=== PATIENT | male | born 1955 | race Caucasian/White ===

== ENCOUNTER 2018-05-23 13:03 | Emergency (ER) | payer OTHER, SELFPAY ==
[2018-05-23 13:53] VITALS: BP 138/72; PULSE 70; RESP 16; TEMP 37.1; O2SAT 100; BMI 33.9
[2018-05-23 15:49] VITALS: BP 130/81; PULSE 66; RESP 15; O2SAT 100
[2018-05-23] MEDS: CYCLOBENZAPRINE 10 MG TABLET PO (16:24)
[2018-05-23] MEDS: HYDROMORPHONE 2 MG INJ IM (16:24)
--- NOTE | 2018-05-27 13:18 | ED.BACK ---
HPI - Back Pain/Injury General Chief Complaint: Back Pain/Injury Stated Complaint: INJURED BACK AT WORK Time Seen by Provider: 05/23/18 15:16 Source: patient Mode of arrival: ambulatory Limitations: no limitations History of Present Illness HPI Narrative: patient states that he strained his back while doing some heavy lifting at work. He states he has been able to control his bowels and bladder, and has had no weakness or numbness in his lower extremities, but does state that the persistent back pain has been keeping him awake at night. He states he does not have any pain medication at home. Patient also is in need of L and I paperwork filled out. He states his pain is about a 7 of 10 at the worst, but sometimes calms down to a 4/10. Bending or lifting makes it worse; laying down in certain positions makes it better. Related Data Home Medications Medication Instructions Recorded Confirmed cyclobenzaprine 10 mg PO Q8H #0 11/14/15 Previous Rx's Medication Instructions Recorded hydromorphone 0 mg PO Q4HP PRN #60 11/18/15 hydroxyzine pamoate 0 mg PO Q4HP PRN #60 cap 11/18/15 cyclobenzaprine 10 mg PO TID PRN #14 tab 05/23/18 hydrocodone-acetaminophen 1 tab PO Q4H PRN #20 tab 05/23/18 Allergies Allergy/AdvReac Type Severity Reaction Status Date / Time NSAIDS (Non-Steroidal AdvReac Mild CAN TAKE, Verified 05/23/18 14:02 Anti-Inflamma BUT TRIES [NSAIDS (NON-STEROIDAL TO AVOID ANTI-INFLAMMA] R/T GASTRIC BYPASS Review of Systems Constitutional Denies chills, Denies fever(s), Denies lethargy and Denies weakness Eyes Denies change in vision, Denies eye discharge, Denies irritation and Denies loss of vision ENT Ears, Nose, Mouth, and Throat: Denies change in voice, Denies neck pain and Denies sore throat Cardiovascular Denies chest pain, Denies irregular heart rhythm, Denies lightheadedness, Denies palpitations, Denies dyspnea, Denies dyspnea on exertion and Denies orthopnea Respiratory Denies cough, Denies dyspnea, Denies dyspnea on exertion and Denies wheezing Gastrointestinal Gastrointestinal: Denies abdominal pain, Denies change in bowel habits, Denies diarrhea, Denies nausea and Denies vomiting Genitourinary Denies hematuria, Denies flank pain, Denies urinary incontinence and Denies urinary urgency Musculoskeletal Denies neck pain Comments: Back pain Integumentary/Breasts Denies pruritus, Denies erythema, Denies rash and Denies wounds Neurologic Denies confusion, Denies loss of vision and Denies weakness Psychiatric Denies anxiety, Denies confusion, Denies depression, Denies homicidal ideation and Denies suicidal ideation Endocrine Denies palpitations Hematologic/Lymphatic Denies easy bruising Allergic/Immunologic Denies wheezing FORMERLY [facility], [facility] Medical History Healthy adult (Acute) Surgical History No pertinent past surgical history (Acute) Social History Smoking Status: Current every day smoker Social History Smoking Status: Current every day smoker Exam Initial Vital Signs Initial Vital Signs: Vital Signs Temperature 98.8 F 05/23/18 13:53 Pulse Rate 70 05/23/18 13:53 Respiratory Rate 16 05/23/18 13:53 Blood Pressure 138/72 05/23/18 13:53 Pulse Oximetry 100 05/23/18 13:53 Const General: cooperative and well developed Nutritional Appearance: well nourished Orientation: alert, awake, oriented x3 and not confused HENNJ Head: normocephalic and atraumatic Ears: external ears normal and TM's normal bilaterally Nose: external nose normal and No nasal discharge Face and sinus: sinuses nontender, face symmetric, no sinus tenderness and No dry mucous membranes Mouth: oral mucosae normal and moist mucous membranes Teeth and gingiva: dentition normal Throat: tonsils normal and uvula midline Eyes General: appearance normal, both eyes and all related structures Eyelids: eyelids normal Conjunctivae: conjunctivae normal Sclera: sclerae normal Pupils: PERRL EOM: EOM intact bilaterally Neck Neck: normal visual inspection, trachea midline, No lymphadenopathy, No midline deformity and No JVD Lymphatic: No lymphedema Chest Chest: normal inspection of the chest Resp Effort & Inspection: normal respiratory effort, able to speak in complete sentences, no respiratory distress and no use of accessory muscles Auscultation: clear to auscultation bilaterally, no rales, no rhonchi and no wheezes Cardio Rate: regular rate Rhythm: regular rhythm Heart Sounds: no click, no gallops, no murmurs and no rubs Pulses: normal peripheral pulses GI Inspection: non-distended Palpation: soft, no hepatosplenomegaly, No guarding, No pulsatile mass and No tender Auscultation: normal bowel sounds Back/Spine/Pelvis Back: No CVA tenderness Cervical Spine: cervical ROM normal and No pain with cervical ROM Other: patient has no tenderness or step-off at any level of the spine. He does have tenderness of his bilateral lumbar paraspinal muscles, right worse than left. He has somewhat limited range of motion of his lumbar region, as well , due to pain and stiffness. Skin General: no rashes or lesions noted, No jaundice and No petechiae Neuro General: alert, oriented x3, gait normal and no focal motor deficits Speech: speech normal Extrem General: full ROM, no clubbing, cyanosis or edema, no pedal edema and no calf tenderness Psych Appearance: well kempt Mental Status: mental status grossly normal Attitude: cooperative Thought Content: normal and suicidality Judgment: judgment good Course Course Narrative: Patient was treated symptomatically with Dilaudid and Flexeril in the emergency department. His significant other was here with him. I did discuss with him the potential need for an MRI as an outpatient. In the meantime, he will be treated symptomatically at home, and given light duty at work until cleared by his doctor. We have discussed the usual indications for return, as well as symptomatic management at home. Orders Ordered: Discontinued Medications Cyclobenzaprine HCl (Flexeril) 10 mg PO NOW ONE Stop: 05/23/18 16:18 Last Admin: 05/23/18 16:24 Dose: 10 mg Hydromorphone HCl (Dilaudid) 2 mg IM NOW ONE Stop: 05/23/18 16:19 Last Admin: 05/23/18 16:24 Dose: 2 mg MDM - Back Pain/Injury Medical Records Attestation: I reviewed the patient's medical records. Discharge Plan Departure Patient Disposition: Home Clinical Impression: Strain of lumbar region Qualifiers: Encounter type: initial encounter Qualified Code(s): S39.012A - Strain of muscle, fascia and tendon of lower back, initial encounter Discharge Date/Time: 05/23/18 17:57 Interventions: ED Discharge Assessment Last Done: 05/23/18 17:54 Instructions: DI for Back Strain or Sprain Activity Restrictions/Additional Instructions: Most injuries of this sort to the back will blow over on their own, given time and rest. It usually takes a few weeks to notice a significant difference. Should the symptoms fail to resolve, the most helpful test would be an MRI, which can be ordered by your primary care physician. Please call your primary doctor's office 1st thing tomorrow morning to make an appointment for 1-2 weeks from now, should you notice the pain is not resolving. In the meantime, you may take the medications for your symptoms, as well as perform light duties only, without lifting, at work. Prescriptions: New cyclobenzaprine 10 mg tablet 10 mg PO TID PRN (Reason: muscle spasm) Qty: 14 RF: 0 hydrocodone-acetaminophen 5-325 mg tablet 1 tab PO Q4H PRN (Reason: pain) Qty: 20 RF: 0 No Action cyclobenzaprine 10 MG tablet 10 mg PO Q8H Qty: 0 RF: 0 hydromorphone 2 MG tablet PO Q4HP PRNQty: 60 RF: 0 hydroxyzine pamoate 25 MG capsule PO Q4HP PRNQty: 60 RF: 0
== END 2018-05-23 17:57 | disposition home or self-care (01) ==
PROVIDERS: Emergency Provider Emergency Medicine
DX: S39.012A Strain of muscle, fascia and tendon of lower back, initial encounter (principal); X50.0XXA Overexertion from strenuous movement or load, initial encounter; Y99.0 Civilian activity done for income or pay
CPT/HCPCS: 96372; 99282; 99283; J1170

== ENCOUNTER 2018-09-10 12:21 | Observation (INO) | payer OTHER, SELFPAY ==
[2018-09-10] VITALS (7 sets, daily range): BP systolic 112–136; BP diastolic 64–91; PULSE 68–93; RESP 14–18; TEMP 36.9–37.1; O2SAT 94–100; BMI 36.0
--- NOTE | 2018-09-10 12:36 | ED.FALL ---
HPI - Fall <Nanette Roberts PA-C - Last Filed: 09/10/18 17:16> General Chief Complaint: Trauma Stated Complaint: fall from a tree,lower back pain Time Seen by Provider: 09/10/18 12:35 Source: patient Mode of arrival: ambulatory Limitations: no limitations History of Present Illness HPI Narrative: This 63-year-old male states that he was working on removing a rotted tree about 6 ft up on the ladder when he fell backwards off the ladder directly onto his bottom. He states he has low back pain that shoots all the way up into his neck. He does not think he actually hit his neck, denies any head contusion, LOC, vision change, nausea or vomiting. He states that the pain can also radiate from his neck area into his left arm and shoulder. He denies any weakness or paresthesia in the extremities. He denies any pain in the lower extremities. He denies any chest pain or dyspnea. He states he does have some pain in the right thumb area but thinks that this is just strained. He has a history of C-spine and L-spine surgery, does not take any regular pain medication for back problems. His witnessed the fall and the same account, no LOC. He has not had any alcohol today, states 1/2 can of beer last night. He is a smoker, no drug use Related Data Home Medications Medication Instructions Recorded Confirmed Vitamin B-12 1 tab PO DAILY 09/10/18 09/10/18 amlodipine 10 mg PO DAILY 09/10/18 09/10/18 aspirin 81 mg PO DAILY 09/10/18 09/10/18 diphenhydramine-acetaminophen 2 tab PO BEDTIME PRN 09/10/18 09/10/18 [Tylenol PM Extra Strength] metformin 500 mg PO BID 09/10/18 09/10/18 multivitamin 1 tab PO DAILY 09/10/18 09/10/18 omeprazole 20 mg PO DAILY 09/10/18 09/10/18 simvastatin 20 mg PO DAILY 09/10/18 09/10/18 tamsulosin 0.4 mg PO DAILY 09/10/18 09/10/18 telmisartan-hydrochlorothiazid 1 tab PO DAILY 09/10/18 09/10/18 [Micardis HCT] Allergies Allergy/AdvReac Type Severity Reaction Status Date / Time NSAIDS (Non-Steroidal AdvReac Mild CAN TAKE, Verified 09/10/18 12:54 Anti-Inflamma BUT TRIES [NSAIDS (NON-STEROIDAL TO AVOID ANTI-INFLAMMA] R/T GASTRIC BYPASS Review of Systems <KARLA Kam Last Filed: 09/10/18 17:16> Review of Systems ROS Unobtainable: All systems reviewed & are unremarkable except as noted in HPI and below Exam <KARLA Kam Last Filed: 09/10/18 17:16> Narrative Exam Narrative: GENERAL APPEARANCE: Patient uncomfortable, in NAD HEENT: No scalp abrasions or hematoma, PERRL, EOMI, normal ear canals, nasal and oral mucosa NECK: Supple LUNGS: Clear to auscultation bilaterally. HEART: Rate and rhythm regular without murmur, normal S1 and S2, no S3 or S4. ABDOMEN: Soft, NT, ND NEUROLOGIC: Alert and oriented, normal speech and coordination. Sensation grossly intact throughout the extremities MUSCULOSKELETAL: Mild tenderness over mid to inferior C-spine, inferior thoracic spine and throughout the lumbosacral spine. Able to transfer from chair to bed initially, following imaging studies unable to sit up after initial pain medications. Full range of motion of the upper extremities without tenderness. No point tenderness over the shoulders or upper arms. [employer] strength is intact. No tenderness over the hips or legs. Lower extremity strength 5/5 bilateral hip flexion, knee extension, foot plantar flexion, low back tenderness with hip flexion, negative modified straight leg raise Initial Vital Signs Initial Vital Signs: Vital Signs Temperature 98.8 F 09/10/18 12:25 Pulse Rate 93 H 09/10/18 12:25 Respiratory Rate 18 09/10/18 12:25 Blood Pressure 136/91 H 09/10/18 12:25 Pulse Oximetry 99 09/10/18 12:25 <Sofia Vences DO - Last Filed: 09/11/18 07:51> Initial Vital Signs Initial Vital Signs: Vital Signs Temperature 98.8 F 09/10/18 12:25 Pulse Rate 93 H 09/10/18 12:25 Respiratory Rate 18 09/10/18 12:25 Blood Pressure 136/91 H 09/10/18 12:25 Pulse Oximetry 99 09/10/18 12:25 PFSH <KARLA Kam Last Filed: 09/10/18 17:16> Medical History Degenerative disc disease (Chronic) HTN (hypertension) (Chronic) Hypertriglyceridemia (Chronic) 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) History of bleeding ulcers (Resolved) Nephrolithiasis (Resolved) Surgical History History of cervical spinal surgery (Resolved) Status post lumbar surgery (Resolved) History of cholecystectomy (Resolved) History of gastric bypass (Resolved) Social History household members: spouse Smoking Status: Current every day smoker Family History (Updated 09/11/18 @ 05:49 by JANEEN Berrios) Mother No known health problems Father No known health problems Social History household members: spouse Smoking Status: Current every day smoker Course <Nanette Roberts PA-C - Last Filed: 09/10/18 17:16> Additional Information: Patient's pain has not been controlled with medications given here, still not able to set up or ambulate. No evidence of acute neurologic dysfunction, no paresthesia or inability to urinate. Dr. Steele, on-call for trauma has been kind enough to evaluate patient in the ED and agrees appropriate for admission for pain control. I have spoken with Dr. De Anda on-call for Medicine and reviewed history and findings, she will admit for observation with plan for pain control and physical therapy consult. CPK added to lab work. Orders Ordered: ED Orders 09/11/18 00:11 Consult to General Surgery Routine 09/11/18 06:20 Basic Metabolic Panel Routine Complete Blood Count AUTO DIFF Routine Acetaminophen (Tylenol) 975 mg PO Q8H DEANNE Stop: 09/13/18 20:59 Last Admin: 09/11/18 05:30 Dose: 975 mg Admin: 09/10/18 21:58 Dose: 975 mg Amlodipine Besylate (Norvasc) 10 mg PO DAILY [facility] Aspirin (Aspirin Ec) 81 mg PO DAILY [facility] Cyclobenzaprine HCl (Flexeril) 5 mg PO Q8HR PRN PRN Reason: Spasms Last Admin: 09/10/18 23:42 Dose: 5 mg Docusate Sodium (Colace) 100 mg PO BID [facility] Last Admin: 09/10/18 21:59 Dose: 100 mg Fentanyl (Duragesic) 50 mcg TOP Q72H [facility] Last Admin: 09/10/18 21:59 Dose: 50 mcg Gabapentin (Neurontin) 300 mg PO TID [facility] Last Admin: 09/10/18 21:58 Dose: 300 mg Sodium Chloride (Normal Saline 0.9%) 1,000 mls @ 100 mls/hr IV CONT [facility] Last Admin: 09/10/18 22:47 Dose: 100 mls/hr Lidocaine (Lidoderm) 1 each TOP 2100 [facility] Last Admin: 09/10/18 21:59 Dose: 1 each Lidocaine (Lidoderm (Remove Patch)) 1 each TOP DAILY [facility] Morphine Sulfate (Morphine) 4 mg IV Q3HR PRN PRN Reason: Breakthrough Pain Last Admin: 09/11/18 03:58 Dose: 4 mg Admin: 09/10/18 23:59 Dose: 4 mg Naloxone HCl (Narcan) 0.4 mg NASAL PRN PRN PRN Reason: respiratory depression Naloxone HCl (Narcan) 0.2 mg IV Q2MIN PRN PRN Reason: Opiate Reversal Ondansetron HCl (Zofran) 4 mg IV Q6HR PRN PRN Reason: Nausea And Vomiting Last Admin: 09/10/18 23:42 Dose: 4 mg Pantoprazole Sodium (Protonix) 40 mg PO 0600 [facility] Last Admin: 09/11/18 05:30 Dose: 40 mg Polyethylene Glycol (Miralax) 17 gm PO DAILY PRN PRN Reason: Constipation Sennosides (Senna) 17.2 mg PO BEDTIME [facility] Last Admin: 09/10/18 23:37 Dose: Not Given Simvastatin (Zocor) 20 mg PO DAILY [facility] Sodium Chloride (Normal Saline 0.9% Flush) 10 ml IV PRN PRN PRN Reason: Flush Last Admin: 09/10/18 22:48 Dose: 10 ml Admin: 09/10/18 21:05 Dose: 10 ml Tamsulosin HCl (Flomax) 0.4 mg PO DAILY [facility] Telmisartan (Micardis) 80 mg PO DAILY [facility] Tramadol HCl (Ultram) 50 mg PO QID PRN PRN Reason: Pain, Severe (7-10) Discontinued Medications Cyclobenzaprine HCl (Flexeril) 10 mg PO NOW ONE Stop: 09/10/18 13:50 Last Admin: 09/10/18 14:26 Dose: 10 mg Fentanyl (Duragesic) 50 mcg TOP Q72H [facility] Hydromorphone HCl (Dilaudid) 0.5 mg IV NOW ONE Stop: 09/10/18 15:02 Last Admin: 09/10/18 15:10 Dose: 0.5 mg Hydromorphone HCl (Dilaudid) 0.5 mg IV NOW ONE Stop: 09/10/18 15:52 Last Admin: 09/10/18 16:17 Dose: 0.5 mg Ketorolac Tromethamine (Toradol) 30 mg IV NOW ONE Stop: 09/10/18 16:07 Last Admin: 09/10/18 16:18 Dose: 30 mg Lidocaine (Lidoderm) 1 each TOP DAILY [facility] Morphine Sulfate (Morphine) 4 mg SUBCUT NOW ONE Stop: 09/10/18 12:46 Last Admin: 09/10/18 13:00 Dose: Not Given Morphine Sulfate (Morphine) 4 mg IV NOW ONE Stop: 09/10/18 12:51 Last Admin: 09/10/18 12:54 Dose: 4 mg Morphine Sulfate (Morphine) 4 mg IV NOW ONE Stop: 09/10/18 13:33 Last Admin: 09/10/18 13:39 Dose: 4 mg Morphine Sulfate (Morphine) 2 mg IV Q3HR PRN PRN Reason: Breakthrough Pain Morphine Sulfate (Morphine) 6 mg IV NOW ONE Stop: 09/10/18 20:50 Last Admin: 09/10/18 21:05 Dose: 6 mg Oxycodone HCl (Percolone) 10 mg PO Q4HR PRN PRN Reason: Pain, Severe (7-10) Last Admin: 09/10/18 18:59 Dose: 10 mg Tramadol HCl (Ultram) 50 mg PO NOW ONE Stop: 09/11/18 00:05 Last Admin: 09/11/18 02:21 Dose: 50 mg Vital Signs - 8 hr 09/11/18 04:14 Temperature 98.7 F Pulse Rate 80 Respiratory Rate 16 Blood Pressure 110/41 L Pulse Oximetry 97 <Sofia Vences DO - Last Filed: 09/11/18 07:51> Orders Ordered: ED Orders 09/11/18 00:11 Consult to General Surgery Routine 09/11/18 06:20 Basic Metabolic Panel Routine Complete Blood Count AUTO DIFF Routine Acetaminophen (Tylenol) 975 mg PO Q8H [facility] Stop: 09/13/18 20:59 Last Admin: 09/11/18 05:30 Dose: 975 mg Admin: 09/10/18 21:58 Dose: 975 mg Amlodipine Besylate (Norvasc) 10 mg PO DAILY [facility] Aspirin (Aspirin Ec) 81 mg PO DAILY [facility] Cyclobenzaprine HCl (Flexeril) 5 mg PO Q8HR PRN PRN Reason: Spasms Last Admin: 09/10/18 23:42 Dose: 5 mg Docusate Sodium (Colace) 100 mg PO BID [facility] Last Admin: 09/10/18 21:59 Dose: 100 mg Fentanyl (Duragesic) 50 mcg TOP Q72H [facility] Last Admin: 09/10/18 21:59 Dose: 50 mcg Gabapentin (Neurontin) 300 mg PO TID [facility] Last Admin: 09/10/18 21:58 Dose: 300 mg Sodium Chloride (Normal Saline 0.9%) 1,000 mls @ 100 mls/hr IV CONT [facility] Last Admin: 09/10/18 22:47 Dose: 100 mls/hr Lidocaine (Lidoderm) 1 each TOP 2100 [facility] Last Admin: 09/10/18 21:59 Dose: 1 each Lidocaine (Lidoderm (Remove Patch)) 1 each TOP DAILY [facility] Morphine Sulfate (Morphine) 4 mg IV Q3HR PRN PRN Reason: Breakthrough Pain Last Admin: 09/11/18 03:58 Dose: 4 mg Admin: 09/10/18 23:59 Dose: 4 mg Naloxone HCl (Narcan) 0.4 mg NASAL PRN PRN PRN Reason: respiratory depression Naloxone HCl (Narcan) 0.2 mg IV Q2MIN PRN PRN Reason: Opiate Reversal Ondansetron HCl (Zofran) 4 mg IV Q6HR PRN PRN Reason: Nausea And Vomiting Last Admin: 09/10/18 23:42 Dose: 4 mg Pantoprazole Sodium (Protonix) 40 mg PO 0600 [facility] Last Admin: 09/11/18 05:30 Dose: 40 mg Polyethylene Glycol (Miralax) 17 gm PO DAILY PRN PRN Reason: Constipation Sennosides (Senna) 17.2 mg PO BEDTIME [facility] Last Admin: 09/10/18 23:37 Dose: Not Given Simvastatin (Zocor) 20 mg PO DAILY [facility] Sodium Chloride (Normal Saline 0.9% Flush) 10 ml IV PRN PRN PRN Reason: Flush Last Admin: 09/10/18 22:48 Dose: 10 ml Admin: 09/10/18 21:05 Dose: 10 ml Tamsulosin HCl (Flomax) 0.4 mg PO DAILY [facility] Telmisartan (Micardis) 80 mg PO DAILY [facility] Tramadol HCl (Ultram) 50 mg PO QID PRN PRN Reason: Pain, Severe (7-10) Discontinued Medications Cyclobenzaprine HCl (Flexeril) 10 mg PO NOW ONE Stop: 09/10/18 13:50 Last Admin: 09/10/18 14:26 Dose: 10 mg Fentanyl (Duragesic) 50 mcg TOP Q72H [facility] Hydromorphone HCl (Dilaudid) 0.5 mg IV NOW ONE Stop: 09/10/18 15:02 Last Admin: 09/10/18 15:10 Dose: 0.5 mg Hydromorphone HCl (Dilaudid) 0.5 mg IV NOW ONE Stop: 09/10/18 15:52 Last Admin: 09/10/18 16:17 Dose: 0.5 mg Ketorolac Tromethamine (Toradol) 30 mg IV NOW ONE Stop: 09/10/18 16:07 Last Admin: 09/10/18 16:18 Dose: 30 mg Lidocaine (Lidoderm) 1 each TOP DAILY [facility] Morphine Sulfate (Morphine) 4 mg SUBCUT NOW ONE Stop: 09/10/18 12:46 Last Admin: 09/10/18 13:00 Dose: Not Given Morphine Sulfate (Morphine) 4 mg IV NOW ONE Stop: 09/10/18 12:51 Last Admin: 09/10/18 12:54 Dose: 4 mg Morphine Sulfate (Morphine) 4 mg IV NOW ONE Stop: 09/10/18 13:33 Last Admin: 09/10/18 13:39 Dose: 4 mg Morphine Sulfate (Morphine) 2 mg IV Q3HR PRN PRN Reason: Breakthrough Pain Morphine Sulfate (Morphine) 6 mg IV NOW ONE Stop: 09/10/18 20:50 Last Admin: 09/10/18 21:05 Dose: 6 mg Oxycodone HCl (Percolone) 10 mg PO Q4HR PRN PRN Reason: Pain, Severe (7-10) Last Admin: 09/10/18 18:59 Dose: 10 mg Tramadol HCl (Ultram) 50 mg PO NOW ONE Stop: 09/11/18 00:05 Last Admin: 09/11/18 02:21 Dose: 50 mg Vital Signs - 8 hr 09/11/18 04:14 Temperature 98.7 F Pulse Rate 80 Respiratory Rate 16 Blood Pressure 110/41 L Pulse Oximetry 97 MDM - Fall <Nanette Roberts PA-C - Last Filed: 09/10/18 17:16> Lab Data Result diagrams: 09/10/18 12:59 09/10/18 12:59 Lab Results 09/10/18 09/10/18 09/10/18 Range/Units 12:59 12:59 12:59 WBC 7.8 (4.5-11.0) X10^3/uL RBC 3.96 L (4.5-5.9) X10^6/uL Hgb 11.2 L (13.5-17.5) g/dL Hct 34.5 L (41-53) % MCV 87.2 (80-100) fL MCH 28.2 (26-34) PG MCHC 32.3 (30-36) % RDW 15.8 H (11.6-14.8) % Plt Count 349 (150-400) X10^3/uL Neut % (Auto) 73.0 (50-75) % Lymph % (Auto) 18.4 L (25-40) % Emanuel % (Auto) 7.6 (3-14) % Eos % (Auto) 0.5 L (2-4) % Baso % (Auto) 0.5 (0-2) % Neut # (Auto) 5700 (7676-3804) /uL Lymph # (Auto) 1400 (4237-6805) /uL Emanuel # (Auto) 600 (0-900) /uL Eos # (Auto) 0 (0-450) /uL Baso # (Auto) 0 (0-100) /uL PT 11.2 (10.1-12.7) SECONDS INR 1.0 (0.9-1.3) Sodium 139 (137-145) mmol/L Potassium 4.7 (3.4-5.1) mmol/L Chloride 107 (98-107) mmol/L Carbon Dioxide 21 L (22-32) mmol/L BUN 25 H (9-20) mg/dL Creatinine 1.10 (0.66-1.25) mg/dL Estimated GFR > 60.0 (>60) mL/min BUN/Creatinine Ratio 22.7 H (6-22) Glucose 111 H (80-110) mg/dL Calcium 9.3 (8.4-10.2) mg/dL Total Bilirubin 0.6 (0.2-1.3) mg/dL AST 25 (17-59) IU/L ALT 17 L (21-72) IU/L Alkaline Phosphatase 133 H (38-126) U/L Total Creatine Kinase (55-170) U/L CK-MB (CK-2) CK-MB (CK-2) Rel Index Troponin I (0.01-0.034) ng/mL Total Protein 7.4 (6.3-8.2) g/dL Albumin 4.3 (3.5-5.0) g/dL Globulin 3.1 (1.7-4.1) g/dL Albumin/Globulin Ratio 1.4 (1.0-2.8) 09/10/18 09/10/18 Range/Units 12:59 22:38 WBC (4.5-11.0) X10^3/uL RBC (4.5-5.9) X10^6/uL Hgb (13.5-17.5) g/dL Hct (41-53) % MCV (80-100) fL MCH (26-34) PG MCHC (30-36) % RDW (11.6-14.8) % Plt Count (150-400) X10^3/uL Neut % (Auto) (50-75) % Lymph % (Auto) (25-40) % Emanuel % (Auto) (3-14) % Eos % (Auto) (2-4) % Baso % (Auto) (0-2) % Neut # (Auto) (1607-8693) /uL Lymph # (Auto) (7540-9612) /uL Emanuel # (Auto) (0-900) /uL Eos # (Auto) (0-450) /uL Baso # (Auto) (0-100) /uL PT (10.1-12.7) SECONDS INR (0.9-1.3) Sodium (137-145) mmol/L Potassium (3.4-5.1) mmol/L Chloride (98-107) mmol/L Carbon Dioxide (22-32) mmol/L BUN (9-20) mg/dL Creatinine (0.66-1.25) mg/dL Estimated GFR (>60) mL/min BUN/Creatinine Ratio (6-22) Glucose (80-110) mg/dL Calcium (8.4-10.2) mg/dL Total Bilirubin (0.2-1.3) mg/dL AST (17-59) IU/L ALT (21-72) IU/L Alkaline Phosphatase (38-126) U/L Total Creatine Kinase 78 87 (55-170) U/L CK-MB (CK-2) TNP CK-MB (CK-2) Rel Index TNP Troponin I < 0.012 (0.01-0.034) ng/mL Total Protein (6.3-8.2) g/dL Albumin (3.5-5.0) g/dL Globulin (1.7-4.1) g/dL Albumin/Globulin Ratio (1.0-2.8) Point of Care Testing Glucose POC 121 Urine Dip Bedside Urine Glucose Negative Bedside Urine Bilirubin - Negative Bedside Urine Ketone - Negative Urine Specific [place] 1.015 Bedside Urine Occult Blood - Negative Bedside Urine pH 6.0 Bedside Urine Protein - Negative Bedside Urine Urobilinogen +/- 1mg Bedside Urine Nitrite - Negative Bedside Urine Leukocytes - Negative Esterase Imaging Data hand: Radiologist's impression: [address] [address] XRay Report Signed Patient: Kristian Yin RMR#: [id number] : 4Acct:[id number] Age/Sex: 63 / MDate of Service: 09/10/18 Loc: ED Accession Number: [id number] Procedure: XR hand RT min 3V Ordering Provider: Nanette Roberts P.A-C PROCEDURE: XR HAND RT MIN 3V INDICATIONS: fall, pain TECHNIQUE: 3 views of the hand(s) acquired. COMPARISON: None. FINDINGS: Bones: No fractures or dislocations there is moderately severe degenerative interphalan geal osteophytic change and also the same pattern of osteoarthritis is seen at the base of the first metacarpal. Carpal bones are normally aligned. No suspicious bony lesions. Soft tissues: No suspicious soft tissue calcifications. IMPRESSION: No trauma but moderately severe osteoarthritis and no sign of erosive arthritis. Dictated by: Alex Romero M.D. on 09/10/2018 at 13:23 Approved by: Alex Romero M.D. on 09/10/2018 at 13:23 Csp: Radiologist's impression: [address] [address] [address] Scan Report Signed Patient: Kristian Yin RMR#: [id number] : [id number]:[id number] Age/Sex: 63 / MDate of Service: 09/10/18 Loc: ED Accession Number: [id number] Procedure: CT cervical spine wo con Ordering Provider: Nanette Roberts P.A-C PROCEDURE: CT CERVICAL SPINE WO CON INDICATIONS: fall, pain, h/o surgery TECHNIQUE: Noncontrast 3 mm thick sections acquired from the skull base to the T4 level. Sagittal and coronal reformats were then constructed. For radiation dose reduction, the following was used: automated exposure control, adjustment of mA and/or kV according to patient size. COMPARISON: [facility], CT, C-SPINE WITHOUT CONTRAST, 05/08/2016, 11:09. FINDINGS: Image quality: Excellent. Bones: Postsurgical changes compatible C4-C7 ACDF are stable compared to 05/08/16.. No fractures or dislocations. Visualized superior ribs are intact. Spine degenerative disc disease and facet arthropathy. Soft tissues: Prevertebral soft tissues are normal in thickness. No paravertebral hematomas. No apical pneumothoraces. The heterotopic calcifications in the posterior paraspinal soft tissues are stable compared to prior exam. IMPRESSION: No fracture. No acute osseous lesion. If symptoms and/or clinical suspicion for pathology persists, evaluation with MRI may be helpful for further assessment. Dictated by: Allie Almanzar MD, PhD on 09/10/2018 at 13:22 Approved by: Allie Almanzar MD, PhD on 09/10/2018 at 13:[address]: Radiologist's impression: [address] [address] [address] Scan Report Signed Patient: Kristian Yin RMR#: [id number] : [id number]:[id number] Age/Sex: 63 / MDate of Service: 09/10/18 Loc: ED Accession Number: [id number] Procedure: CT lumbar spine wo con Ordering Provider: Nanette Roberts P.A-C PROCEDURE: CT LUMBAR SPINE WO CON INDICATIONS: fall, pain, h/o surgery TECHNIQUE: Noncontrast 3 mm thick sections acquired from the T12 level to the sacrum. Sagittal and coronal reformats were constructed. For radiation dose reduction, the following was used: automated exposure control. COMPARISON: None. FINDINGS: Image quality: Excellent. Bones: Postsurgical changes compatible with L4-S1 posterior fusion at L4 and L5 laminectomies. Orthopedic hardware is intact. No lucency is identified at the bone hardware interface. There is trace L2-L3 retrolisthesis. There is mild L4-L5 anterolisthesis. Multilevel degenerative disc disease and facet arthropathy are noted.. No acute vertebral body compression fractures. No suspicious lytic or blastic bony lesions. Central spinal caliber is of normal overall caliber. No pars defects. Soft tissues: No retroperitoneal masses or hematomas. Visualized aorta is normal in caliber. 1.3 cm nonobstructing right renal stone. Partially visualized 3 mm nonobstructing left renal stone. Cholecystectomy clips. IMPRESSION: No fracture. No acute osseous lesion. If symptoms and/or clinical suspicion for pathology persists, evaluation with MRI may be helpful for further assessment. Dictated by: Allie Almanzar MD, PhD on 09/10/2018 at 13:28 Approved by: Allie Almanzar MD, PhD on 09/10/2018 at 13:32 thoracic: Radiologist's impression: [address] [address] [address] Scan Report Signed Patient: Kristian Yin RMR#: [id number] : [id number]:[id number] Age/Sex: 63 / MDate of Service: 09/10/18 Loc: ED Accession Number: [id number] Procedure: CT thoracic spine wo con Ordering Provider: Fishfader,Nanette P.A-C PROCEDURE: CT THORACIC SPINE WO CON INDICATIONS: fall, pain TECHNIQUE: Noncontrast 3 mm thick sections acquired through the region of interest in the thoracic spine. Sagittal and coronal reformats were then constructed. For radiation dose reduction, the following was used: automated exposure control. COMPARISON: None. FINDINGS: Image quality: Excellent. Bones: Partially visualized fixation hardware in the lower cervical spine. There is normal overall bony alignment. No acute vertebral body compression fractures. No suspicious sclerotic or lytic bony lesions. Central spinal canal is of normal overall caliber. Spine degenerative disc disease and facet arthropathy. Soft tissues: No paravertebral masses or hematomas. Visualized posteromedial lungs appear clear. Cholecystectomy clips. Scattered atherosclerotic calcifications noted in the abdominal pelvic vasculature. IMPRESSION: No fracture. No acute osseous lesion. If symptoms and/or clinical suspicion for pathology persists, evaluation with MRI may be helpful for further assessment. Dictated by: Allie Almanzar MD, PhD on 09/10/2018 at 13:32 Approved by: Allie Almanzar MD, PhD on 09/10/2018 at 13:46 <Sofia Vences, - Last Filed: 09/11/18 07:51> Lab Data Lab Results 09/10/18 09/10/18 09/10/18 Range/Units 12:59 12:59 12:59 WBC 7.8 (4.5-11.0) X10^3/uL RBC 3.96 L (4.5-5.9) X10^6/uL Hgb 11.2 L (13.5-17.5) g/dL Hct 34.5 L (41-53) % MCV 87.2 (80-100) fL MCH 28.2 (26-34) PG MCHC 32.3 (30-36) % RDW 15.8 H (11.6-14.8) % Plt Count 349 (150-400) X10^3/uL Neut % (Auto) 73.0 (50-75) % Lymph % (Auto) 18.4 L (25-40) % Emanuel % (Auto) 7.6 (3-14) % Eos % (Auto) 0.5 L (2-4) % Baso % (Auto) 0.5 (0-2) % Neut # (Auto) 5700 (2034-8147) /uL Lymph # (Auto) 1400 (9224-6062) /uL Emanuel # (Auto) 600 (0-900) /uL Eos # (Auto) 0 (0-450) /uL Baso # (Auto) 0 (0-100) /uL PT 11.2 (10.1-12.7) SECONDS INR 1.0 (0.9-1.3) Sodium 139 (137-145) mmol/L Potassium 4.7 (3.4-5.1) mmol/L Chloride 107 (98-107) mmol/L Carbon Dioxide 21 L (22-32) mmol/L BUN 25 H (9-20) mg/dL Creatinine 1.10 (0.66-1.25) mg/dL Estimated GFR > 60.0 (>60) mL/min BUN/Creatinine Ratio 22.7 H (6-22) Glucose 111 H (80-110) mg/dL Calcium 9.3 (8.4-10.2) mg/dL Total Bilirubin 0.6 (0.2-1.3) mg/dL AST 25 (17-59) IU/L ALT 17 L (21-72) IU/L Alkaline Phosphatase 133 H (38-126) U/L Total Creatine Kinase (55-170) U/L CK-MB (CK-2) CK-MB (CK-2) Rel Index Troponin I (0.01-0.034) ng/mL Total Protein 7.4 (6.3-8.2) g/dL Albumin 4.3 (3.5-5.0) g/dL Globulin 3.1 (1.7-4.1) g/dL Albumin/Globulin Ratio 1.4 (1.0-2.8) 09/10/18 09/10/18 Range/Units 12:59 22:38 WBC (4.5-11.0) X10^3/uL RBC (4.5-5.9) X10^6/uL Hgb (13.5-17.5) g/dL Hct (41-53) % MCV (80-100) fL MCH (26-34) PG MCHC (30-36) % RDW (11.6-14.8) % Plt Count (150-400) X10^3/uL Neut % (Auto) (50-75) % Lymph % (Auto) (25-40) % Emanuel % (Auto) (3-14) % Eos % (Auto) (2-4) % Baso % (Auto) (0-2) % Neut # (Auto) (0984-7345) /uL Lymph # (Auto) (9698-2569) /uL Emanuel # (Auto) (0-900) /uL Eos # (Auto) (0-450) /uL Baso # (Auto) (0-100) /uL PT (10.1-12.7) SECONDS INR (0.9-1.3) Sodium (137-145) mmol/L Potassium (3.4-5.1) mmol/L Chloride (98-107) mmol/L Carbon Dioxide (22-32) mmol/L BUN (9-20) mg/dL Creatinine (0.66-1.25) mg/dL Estimated GFR (>60) mL/min BUN/Creatinine Ratio (6-22) Glucose (80-110) mg/dL Calcium (8.4-10.2) mg/dL Total Bilirubin (0.2-1.3) mg/dL AST (17-59) IU/L ALT (21-72) IU/L Alkaline Phosphatase (38-126) U/L Total Creatine Kinase 78 87 (55-170) U/L CK-MB (CK-2) TNP CK-MB (CK-2) Rel Index TNP Troponin I < 0.012 (0.01-0.034) ng/mL Total Protein (6.3-8.2) g/dL Albumin (3.5-5.0) g/dL Globulin (1.7-4.1) g/dL Albumin/Globulin Ratio (1.0-2.8) Point of Care Testing Glucose POC 121 Urine Dip Bedside Urine Glucose Negative Bedside Urine Bilirubin - Negative Bedside Urine Ketone - Negative Urine Specific [place] 1.015 Bedside Urine Occult Blood - Negative Bedside Urine pH 6.0 Bedside Urine Protein - Negative Bedside Urine Urobilinogen +/- 1mg Bedside Urine Nitrite - Negative Bedside Urine Leukocytes - Negative Esterase Discharge Plan Departure Patient Disposition: Admitted as Observation Clinical Impression: Intractable low back pain Fall with injury Qualifiers: Encounter type: initial encounter Qualified Code(s): W19.XXXA - Unspecified fall, initial encounter Discharge Date/Time: 06/28/19 17:25 Interventions: ED Discharge Assessment Last Done: 09/10/18 17:29 Admit Date/Time: 09/10/18 16:43 Admit Provider: Jen De Anda <Sofia Vences DO - Last Filed: 09/11/18 07:51> Cosign ED Attending Reynaldoature Attestation: I was immediately available in the department for consultation. Documentation has been reviewed. I agree with assessment and plan.
--- NOTE | 2018-09-10 12:45 | DI.RAD.S_ITS ---
PROCEDURE: XR HAND RT MIN 3V INDICATIONS: fall, pain TECHNIQUE: 3 views of the hand(s) acquired. COMPARISON: None. FINDINGS: Bones: No fractures or dislocations there is moderately severe degenerative interphalan geal osteophytic change and also the same pattern of osteoarthritis is seen at the base of the first metacarpal. Carpal bones are normally aligned. No suspicious bony lesions. Soft tissues: No suspicious soft tissue calcifications. IMPRESSION: No trauma but moderately severe osteoarthritis and no sign of erosive arthritis. Dictated by: Alex Romero M.D. on 09/10/2018 at 13:23 Approved by: Alex Romero M.D. on 09/10/2018 at 13:23
[2018-09-10] MEDS: MORPHINE 4 MG/ML INJ IV ×3 (12:54→23:59)
--- NOTE | 2018-09-10 12:56 | ED_ITS ---
HPI - Fall <Nanette Roberts PA-C - Last Filed: 09/10/18 17:16> General Chief Complaint: Trauma Stated Complaint: fall from a tree,lower back pain Time Seen by Provider: 09/10/18 12:35 Source: patient Mode of arrival: ambulatory Limitations: no limitations History of Present Illness HPI Narrative: This 63-year-old male states that he was working on removing a rotted tree about 6 ft up on the ladder when he fell backwards off the ladder directly onto his bottom. He states he has low back pain that shoots all the way up into his neck. He does not think he actually hit his neck, denies any head contusion, LOC, vision change, nausea or vomiting. He states that the pain can also radiate from his neck area into his left arm and shoulder. He denies any weakness or paresthesia in the extremities. He denies any pain in the lower extremities. He denies any chest pain or dyspnea. He states he does have some pain in the right thumb area but thinks that this is just strained. He has a history of C-spine and L-spine surgery, does not take any regular pain medication for back problems. His witnessed the fall and the same account, no LOC. He has not had any alcohol today, states 1/2 can of beer last night. He is a smoker, no drug use Related Data Home Medications Medication Instructions Recorded Confirmed Vitamin B-12 1 tab PO DAILY 09/10/18 09/10/18 amlodipine 10 mg PO DAILY 09/10/18 09/10/18 aspirin 81 mg PO DAILY 09/10/18 09/10/18 diphenhydramine-acetaminophen 2 tab PO BEDTIME PRN 09/10/18 09/10/18 [Tylenol PM Extra Strength] metformin 500 mg PO BID 09/10/18 09/10/18 multivitamin 1 tab PO DAILY 09/10/18 09/10/18 omeprazole 20 mg PO DAILY 09/10/18 09/10/18 simvastatin 20 mg PO DAILY 09/10/18 09/10/18 tamsulosin 0.4 mg PO DAILY 09/10/18 09/10/18 telmisartan-hydrochlorothiazid 1 tab PO DAILY 09/10/18 09/10/18 [Micardis HCT] Allergies Allergy/AdvReac Type Severity Reaction Status Date / Time NSAIDS (Non-Steroidal AdvReac Mild CAN TAKE, Verified 09/10/18 12:54 Anti-Inflamma BUT TRIES [NSAIDS (NON-STEROIDAL TO AVOID ANTI-INFLAMMA] R/T GASTRIC BYPASS Review of Systems <KARLA Kam Last Filed: 09/10/18 17:16> Review of Systems ROS Unobtainable: All systems reviewed & are unremarkable except as noted in HPI and below Exam <KARLA Kam Last Filed: 09/10/18 17:16> Narrative Exam Narrative: GENERAL APPEARANCE: Patient uncomfortable, in NAD HEENT: No scalp abrasions or hematoma, PERRL, EOMI, normal ear canals, nasal and oral mucosa NECK: Supple LUNGS: Clear to auscultation bilaterally. HEART: Rate and rhythm regular without murmur, normal S1 and S2, no S3 or S4. ABDOMEN: Soft, NT, ND NEUROLOGIC: Alert and oriented, normal speech and coordination. Sensation grossly intact throughout the extremities MUSCULOSKELETAL: Mild tenderness over mid to inferior C-spine, inferior thoracic spine and throughout the lumbosacral spine. Able to transfer from [facility] to bed initially, following imaging studies unable to sit up after initial pain medications. Full range of motion of the upper extremities without tenderness. No point tenderness over the shoulders or upper arms. [employer] strength is intact. No tenderness over the hips or legs. Lower extremity strength 5/5 bilateral hip flexion, knee extension, foot plantar flexion, low back tenderness with hip flexion, negative modified straight leg raise Initial Vital Signs Initial Vital Signs: Vital Signs Temperature 98.8 F 09/10/18 12:25 Pulse Rate 93 H 09/10/18 12:25 Respiratory Rate 18 09/10/18 12:25 Blood Pressure 136/91 H 09/10/18 12:25 Pulse Oximetry 99 09/10/18 12:25 <Sofia Vences DO - Last Filed: 09/11/18 07:51> Initial Vital Signs Initial Vital Signs: Vital Signs Temperature 98.8 F 09/10/18 12:25 Pulse Rate 93 H 09/10/18 12:25 Respiratory Rate 18 09/10/18 12:25 Blood Pressure 136/91 H 09/10/18 12:25 Pulse Oximetry 99 09/10/18 12:25 PFSH <KARLA Kam Last Filed: 09/10/18 17:16> Medical History Degenerative disc disease (Chronic) HTN (hypertension) (Chronic) Hypertriglyceridemia (Chronic) 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) History of bleeding ulcers (Resolved) Nephrolithiasis (Resolved) Surgical History History of cervical spinal surgery (Resolved) Status post lumbar surgery (Resolved) History of cholecystectomy (Resolved) History of gastric bypass (Resolved) Social History household members: spouse Smoking Status: Current every day smoker Family History (Updated 09/11/18 @ 05:49 by JANEEN Berrios) Mother No known health problems Father No known health problems Social History household members: spouse Smoking Status: Current every day smoker Course <Nanette Roberts PA-C - Last Filed: 09/10/18 17:16> Additional Information: Patient's pain has not been controlled with medications given here, still not able to set up or ambulate. No evidence of acute neurologic dysfunction, no paresthesia or inability to urinate. Dr. Steele, on-call for trauma has been kind enough to evaluate patient in the ED and agrees appropriate for admission for pain control. I have spoken with Dr. De Anda on- call for Medicine and reviewed history and findings, she will admit for observation with plan for pain control and physical therapy consult. CPK added to lab work. Orders Ordered: ED Orders 09/11/18 00:11 Consult to General Surgery Routine 09/11/18 06:20 Basic Metabolic Panel Routine Complete Blood Count AUTO DIFF Routine Acetaminophen (Tylenol) 975 mg PO Q8H DEANNE Stop: 09/13/18 20:59 Last Admin: 09/11/18 05:30 Dose: 975 mg Admin: 09/10/18 21:58 Dose: 975 mg Amlodipine Besylate (Norvasc) 10 mg PO DAILY [facility] Aspirin (Aspirin Ec) 81 mg PO DAILY [facility] Cyclobenzaprine HCl (Flexeril) 5 mg PO Q8HR PRN PRN Reason: Spasms Last Admin: 09/10/18 23:42 Dose: 5 mg Docusate Sodium (Colace) 100 mg PO BID [facility] Last Admin: 09/10/18 21:59 Dose: 100 mg Fentanyl (Duragesic) 50 mcg TOP Q72H [facility] Last Admin: 09/10/18 21:59 Dose: 50 mcg Gabapentin (Neurontin) 300 mg PO TID [facility] Last Admin: 09/10/18 21:58 Dose: 300 mg Sodium Chloride (Normal Saline 0.9%) 1,000 mls @ 100 mls/hr IV CONT [facility] Last Admin: 09/10/18 22:47 Dose: 100 mls/hr Lidocaine (Lidoderm) 1 each TOP 2100 [facility] Last Admin: 09/10/18 21:59 Dose: 1 each Lidocaine (Lidoderm (Remove Patch)) 1 each TOP DAILY [facility] Morphine Sulfate (Morphine) 4 mg IV Q3HR PRN PRN Reason: Breakthrough Pain Last Admin: 09/11/18 03:58 Dose: 4 mg Admin: 09/10/18 23:59 Dose: 4 mg Naloxone HCl (Narcan) 0.4 mg NASAL PRN PRN PRN Reason: respiratory depression Naloxone HCl (Narcan) 0.2 mg IV Q2MIN PRN PRN Reason: Opiate Reversal Ondansetron HCl (Zofran) 4 mg IV Q6HR PRN PRN Reason: Nausea And Vomiting Last Admin: 09/10/18 23:42 Dose: 4 mg Pantoprazole Sodium (Protonix) 40 mg PO 0600 [facility] Last Admin: 09/11/18 05:30 Dose: 40 mg Polyethylene Glycol (Miralax) 17 gm PO DAILY PRN PRN Reason: Constipation Sennosides (Senna) 17.2 mg PO BEDTIME [facility] Last Admin: 09/10/18 23:37 Dose: Not Given Simvastatin (Zocor) 20 mg PO DAILY [facility] Sodium Chloride (Normal Saline 0.9% Flush) 10 ml IV PRN PRN PRN Reason: Flush Last Admin: 09/10/18 22:48 Dose: 10 ml Admin: 09/10/18 21:05 Dose: 10 ml Tamsulosin HCl (Flomax) 0.4 mg PO DAILY [facility] Telmisartan (Micardis) 80 mg PO DAILY [facility] Tramadol HCl (Ultram) 50 mg PO QID PRN PRN Reason: Pain, Severe (7-10) Discontinued Medications Cyclobenzaprine HCl (Flexeril) 10 mg PO NOW ONE Stop: 09/10/18 13:50 Last Admin: 09/10/18 14:26 Dose: 10 mg Fentanyl (Duragesic) 50 mcg TOP Q72H DEANNE Hydromorphone HCl (Dilaudid) 0.5 mg IV NOW ONE Stop: 09/10/18 15:02 Last Admin: 09/10/18 15:10 Dose: 0.5 mg Hydromorphone HCl (Dilaudid) 0.5 mg IV NOW ONE Stop: 09/10/18 15:52 Last Admin: 09/10/18 16:17 Dose: 0.5 mg Ketorolac Tromethamine (Toradol) 30 mg IV NOW ONE Stop: 09/10/18 16:07 Last Admin: 09/10/18 16:18 Dose: 30 mg Lidocaine (Lidoderm) 1 each TOP DAILY [facility] Morphine Sulfate (Morphine) 4 mg SUBCUT NOW ONE Stop: 09/10/18 12:46 Last Admin: 09/10/18 13:00 Dose: Not Given Morphine Sulfate (Morphine) 4 mg IV NOW ONE Stop: 09/10/18 12:51 Last Admin: 09/10/18 12:54 Dose: 4 mg Morphine Sulfate (Morphine) 4 mg IV NOW ONE Stop: 09/10/18 13:33 Last Admin: 09/10/18 13:39 Dose: 4 mg Morphine Sulfate (Morphine) 2 mg IV Q3HR PRN PRN Reason: Breakthrough Pain Morphine Sulfate (Morphine) 6 mg IV NOW ONE Stop: 09/10/18 20:50 Last Admin: 09/10/18 21:05 Dose: 6 mg Oxycodone HCl (Percolone) 10 mg PO Q4HR PRN PRN Reason: Pain, Severe (7-10) Last Admin: 09/10/18 18:59 Dose: 10 mg Tramadol HCl (Ultram) 50 mg PO NOW ONE Stop: 09/11/18 00:05 Last Admin: 09/11/18 02:21 Dose: 50 mg Vital Signs - 8 hr 09/11/18 04:14 Temperature 98.7 F Pulse Rate 80 Respiratory Rate 16 Blood Pressure 110/41 L Pulse Oximetry 97 <Sofia Vences DO - Last Filed: 09/11/18 07:51> Orders Ordered: ED Orders 09/11/18 00:11 Consult to General Surgery Routine 09/11/18 06:20 Basic Metabolic Panel Routine Complete Blood Count AUTO DIFF Routine Acetaminophen (Tylenol) 975 mg PO Q8H [facility] Stop: 09/13/18 20:59 Last Admin: 09/11/18 05:30 Dose: 975 mg Admin: 09/10/18 21:58 Dose: 975 mg Amlodipine Besylate (Norvasc) 10 mg PO DAILY [facility] Aspirin (Aspirin Ec) 81 mg PO DAILY [facility] Cyclobenzaprine HCl (Flexeril) 5 mg PO Q8HR PRN PRN Reason: Spasms Last Admin: 09/10/18 23:42 Dose: 5 mg Docusate Sodium (Colace) 100 mg PO BID [facility] Last Admin: 09/10/18 21:59 Dose: 100 mg Fentanyl (Duragesic) 50 mcg TOP Q72H [facility] Last Admin: 09/10/18 21:59 Dose: 50 mcg Gabapentin (Neurontin) 300 mg PO TID [facility] Last Admin: 09/10/18 21:58 Dose: 300 mg Sodium Chloride (Normal Saline 0.9%) 1,000 mls @ 100 mls/hr IV CONT [facility] Last Admin: 09/10/18 22:47 Dose: 100 mls/hr Lidocaine (Lidoderm) 1 each TOP 2100 [facility] Last Admin: 09/10/18 21:59 Dose: 1 each Lidocaine (Lidoderm (Remove Patch)) 1 each TOP DAILY [facility] Morphine Sulfate (Morphine) 4 mg IV Q3HR PRN PRN Reason: Breakthrough Pain Last Admin: 09/11/18 03:58 Dose: 4 mg Admin: 09/10/18 23:59 Dose: 4 mg Naloxone HCl (Narcan) 0.4 mg NASAL PRN PRN PRN Reason: respiratory depression Naloxone HCl (Narcan) 0.2 mg IV Q2MIN PRN PRN Reason: Opiate Reversal Ondansetron HCl (Zofran) 4 mg IV Q6HR PRN PRN Reason: Nausea And Vomiting Last Admin: 09/10/18 23:42 Dose: 4 mg Pantoprazole Sodium (Protonix) 40 mg PO 0600 [facility] Last Admin: 09/11/18 05:30 Dose: 40 mg Polyethylene Glycol (Miralax) 17 gm PO DAILY PRN PRN Reason: Constipation Sennosides (Senna) 17.2 mg PO BEDTIME [facility] Last Admin: 09/10/18 23:37 Dose: Not Given Simvastatin (Zocor) 20 mg PO DAILY [facility] Sodium Chloride (Normal Saline 0.9% Flush) 10 ml IV PRN PRN PRN Reason: Flush Last Admin: 09/10/18 22:48 Dose: 10 ml Admin: 09/10/18 21:05 Dose: 10 ml Tamsulosin HCl (Flomax) 0.4 mg PO DAILY [facility] Telmisartan (Micardis) 80 mg PO DAILY [facility] Tramadol HCl (Ultram) 50 mg PO QID PRN PRN Reason: Pain, Severe (7-10) Discontinued Medications Cyclobenzaprine HCl (Flexeril) 10 mg PO NOW ONE Stop: 09/10/18 13:50 Last Admin: 09/10/18 14:26 Dose: 10 mg Fentanyl (Duragesic) 50 mcg TOP Q72H [facility] Hydromorphone HCl (Dilaudid) 0.5 mg IV NOW ONE Stop: 09/10/18 15:02 Last Admin: 09/10/18 15:10 Dose: 0.5 mg Hydromorphone HCl (Dilaudid) 0.5 mg IV NOW ONE Stop: 09/10/18 15:52 Last Admin: 09/10/18 16:17 Dose: 0.5 mg Ketorolac Tromethamine (Toradol) 30 mg IV NOW ONE Stop: 09/10/18 16:07 Last Admin: 09/10/18 16:18 Dose: 30 mg Lidocaine (Lidoderm) 1 each TOP DAILY [facility] Morphine Sulfate (Morphine) 4 mg SUBCUT NOW ONE Stop: 09/10/18 12:46 Last Admin: 09/10/18 13:00 Dose: Not Given Morphine Sulfate (Morphine) 4 mg IV NOW ONE Stop: 09/10/18 12:51 Last Admin: 09/10/18 12:54 Dose: 4 mg Morphine Sulfate (Morphine) 4 mg IV NOW ONE Stop: 09/10/18 13:33 Last Admin: 09/10/18 13:39 Dose: 4 mg Morphine Sulfate (Morphine) 2 mg IV Q3HR PRN PRN Reason: Breakthrough Pain Morphine Sulfate (Morphine) 6 mg IV NOW ONE Stop: 09/10/18 20:50 Last Admin: 09/10/18 21:05 Dose: 6 mg Oxycodone HCl (Percolone) 10 mg PO Q4HR PRN PRN Reason: Pain, Severe (7-10) Last Admin: 09/10/18 18:59 Dose: 10 mg Tramadol HCl (Ultram) 50 mg PO NOW ONE Stop: 09/11/18 00:05 Last Admin: 09/11/18 02:21 Dose: 50 mg Vital Signs - 8 hr 09/11/18 04:14 Temperature 98.7 F Pulse Rate 80 Respiratory Rate 16 Blood Pressure 110/41 L Pulse Oximetry 97 MDM - Fall <Nanette Roberts PA-C - Last Filed: 09/10/18 17:16> Lab Data Result diagrams: 09/10/18 12:59 09/10/18 12:59 Lab Results 09/10/18 09/10/18 09/10/18 Range/Units 12:59 12:59 12:59 WBC 7.8 (4.5-11.0) X10^3/uL RBC 3.96 L (4.5-5.9) X10^6/uL Hgb 11.2 L (13.5-17.5) g/dL Hct 34.5 L (41-53) % MCV 87.2 (80-100) fL MCH 28.2 (26-34) PG MCHC 32.3 (30-36) % RDW 15.8 H (11.6-14.8) % Plt Count 349 (150-400) X10^3/uL Neut % (Auto) 73.0 (50-75) % Lymph % (Auto) 18.4 L (25-40) % Worth % (Auto) 7.6 (3-14) % Eos % (Auto) 0.5 L (2-4) % Baso % (Auto) 0.5 (0-2) % Neut # (Auto) 5700 (9175-9251) /uL Lymph # (Auto) 1400 (2112-5420) /uL Worth # (Auto) 600 (0-900) /uL Eos # (Auto) 0 (0-450) /uL Baso # (Auto) 0 (0-100) /uL PT 11.2 (10.1-12.7) SECONDS INR 1.0 (0.9-1.3) Sodium 139 (137-145) mmol/L Potassium 4.7 (3.4-5.1) mmol/L Chloride 107 (98-107) mmol/L Carbon Dioxide 21 L (22-32) mmol/L BUN 25 H (9-20) mg/dL Creatinine 1.10 (0.66-1.25) mg/dL Estimated GFR > 60.0 (>60) mL/min BUN/Creatinine Ratio 22.7 H (6-22) Glucose 111 H (80-110) mg/dL Calcium 9.3 (8.4-10.2) mg/dL Total Bilirubin 0.6 (0.2-1.3) mg/dL AST 25 (17-59) IU/L ALT 17 L (21-72) IU/L Alkaline Phosphatase 133 H (38-126) U/L Total Creatine Kinase (55-170) U/L CK-MB (CK-2) CK-MB (CK-2) Rel Index Troponin I (0.01-0.034) ng/mL Total Protein 7.4 (6.3-8.2) g/dL Albumin 4.3 (3.5-5.0) g/dL Globulin 3.1 (1.7-4.1) g/dL Albumin/Globulin Ratio 1.4 (1.0-2.8) 09/10/18 09/10/18 Range/Units 12:59 22:38 WBC (4.5-11.0) X10^3/uL RBC (4.5-5.9) X10^6/uL Hgb (13.5-17.5) g/dL Hct (41-53) % MCV (80-100) fL MCH (26-34) PG MCHC (30-36) % RDW (11.6-14.8) % Plt Count (150-400) X10^3/uL Neut % (Auto) (50-75) % Lymph % (Auto) (25-40) % Worth % (Auto) (3-14) % Eos % (Auto) (2-4) % Baso % (Auto) (0-2) % Neut # (Auto) (4264-8664) /uL Lymph # (Auto) (7124-0890) /uL Worth # (Auto) (0-900) /uL Eos # (Auto) (0-450) /uL Baso # (Auto) (0-100) /uL PT (10.1-12.7) SECONDS INR (0.9-1.3) Sodium (137-145) mmol/L Potassium (3.4-5.1) mmol/L Chloride (98-107) mmol/L Carbon Dioxide (22-32) mmol/L BUN (9-20) mg/dL Creatinine (0.66-1.25) mg/dL Estimated GFR (>60) mL/min BUN/Creatinine Ratio (6-22) Glucose (80-110) mg/dL Calcium (8.4-10.2) mg/dL Total Bilirubin (0.2-1.3) mg/dL AST (17-59) IU/L ALT (21-72) IU/L Alkaline Phosphatase (38-126) U/L Total Creatine Kinase 78 87 (55-170) U/L CK-MB (CK-2) TNP CK-MB (CK-2) Rel Index TNP Troponin I < 0.012 (0.01-0.034) ng/mL Total Protein (6.3-8.2) g/dL Albumin (3.5-5.0) g/dL Globulin (1.7-4.1) g/dL Albumin/Globulin Ratio (1.0-2.8) Point of Care Testing Glucose POC 121 Urine Dip Bedside Urine Glucose Negative Bedside Urine Bilirubin - Negative Bedside Urine Ketone - Negative Urine Specific [place] 1.015 Bedside Urine Occult Blood - Negative Bedside Urine pH 6.0 Bedside Urine Protein - Negative Bedside Urine Urobilinogen +/- 1mg Bedside Urine Nitrite - Negative Bedside Urine Leukocytes - Negative Esterase Imaging Data hand: Radiologist's impression: [address] [address] XRay Report Signed Patient: Kristian Yin RMR#: [id number] : 4Acct:[id number] Age/Sex: 63 / MDate of Service: 09/10/18 Loc: ED Accession Number: [id number] Procedure: XR hand RT min 3V Ordering Provider: Nanette Roberts P.A-C PROCEDURE: XR HAND RT MIN 3V INDICATIONS: fall, pain TECHNIQUE: 3 views of the hand(s) acquired. COMPARISON: None. FINDINGS: Bones: No fractures or dislocations there is moderately severe degenerative interphalan geal osteophytic change and also the same pattern of osteoarthritis is seen at the base of the first metacarpal. Carpal bones are normally aligned. No suspicious bony lesions. Soft tissues: No suspicious soft tissue calcifications. IMPRESSION: No trauma but moderately severe osteoarthritis and no sign of erosive arthritis. Dictated by: Alex Romero M.D. on 09/10/2018 at 13:23 Approved by: Alex Romero M.D. on 09/10/2018 at 13:23 Csp: Radiologist's impression: [address] [address] [address] Scan Report Signed Patient: Kristian Yin RMR#: [id number] : 1955cct:[id number] Age/Sex: 63 / MDate of Service: 09/10/18 Loc: ED Accession Number: [id number] Procedure: CT cervical spine wo con Ordering Provider: Nanette Roberts P.A-C PROCEDURE: CT CERVICAL SPINE WO CON INDICATIONS: fall, pain, h/o surgery TECHNIQUE: Noncontrast 3 mm thick sections acquired from the skull base to the T4 level. Sagittal and coronal reformats were then constructed. For radiation dose reduction, the following was used: automated exposure control, adjustment of mA and/or kV according to patient size. COMPARISON: [facility], CT, C-SPINE WITHOUT CONTRAST, 05/08/2016, 11:09. FINDINGS: Image quality: Excellent. Bones: Postsurgical changes compatible C4-C7 ACDF are stable compared to 05/08/16.. No fractures or dislocations. Visualized superior ribs are intact. Spine degenera tive disc disease and facet arthropathy. Soft tissues: Prevertebral soft tissues are normal in thickness. No paravertebral hematomas. No apical pneumothoraces. The heterotopic calcifications in the posterior paraspinal soft tissues are stable compared to prior exam. IMPRESSION: No fracture. No acute osseous lesion. If symptoms and/or clinical suspicion for pathology persists, evaluation with MRI may be helpful for further assessment. Dictated by: Allie Almanzar MD, PhD on 09/10/2018 at 13:22 Approved by: Allie Almanzar MD, PhD on 09/10/2018 at 13:[address]: Radiologist's impression: [address] [address] [address] Scan Report Signed Patient: Kristian Yin RMR#: [id number] : [id number]:[id number] Age/Sex: 63 / MDate of Service: 09/10/18 Loc: ED Accession Number: [id number] Procedure: CT lumbar spine wo con Ordering Provider: Nanette Roberts P.A-C PROCEDURE: CT LUMBAR SPINE WO CON INDICATIONS: fall, pain, h/o surgery TECHNIQUE: Noncontrast 3 mm thick sections acquired from the T12 level to the sacrum. S agittal and coronal reformats were constructed. For radiation dose reduction, the following was used: automated exposure control. COMPARISON: None. FINDINGS: Image quality: Excellent. Bones: Postsurgical changes compatible with L4-S1 posterior fusion at L4 and L5 laminectomies. Orthopedic hardware is intact. No lucency is identified at the bone hardware interface. There is trace L2-L3 retrolisthesis. There is mild L4-L5 anterolisthesis. Multilevel degenerative disc disease and facet arthropathy are noted.. No acute vertebral body compression fractures. No suspicious lytic or blastic bony lesions. Central spinal caliber is of normal overall caliber. No pars defects. Soft tissues: No retroperitoneal masses or hematomas. Visualized aorta is normal in caliber. 1.3 cm nonobstructing right renal stone. Partially visualized 3 mm nonobstructing left renal stone. Cholecystectomy clips. IMPRESSION: No fracture. No acute osseous lesion. If symptoms and/or clinical suspicion for pathology persists, evaluation with MRI may be helpful for further assessment. Dictated by: Allie Almanzar MD, PhD on 09/10/2018 at 13:28 Approved by: Allie Almanzar MD, PhD on 09/10/2018 at 13:32 thoracic: Radiologist's impression: [address] [address] [address] Scan Report Signed Patient: Kristian Yin RMR#: [id number] : [id number]:[id number] Age/Sex: 63 / MDate of Service: 09/10/18 Loc: ED Accession Number: [id number] Procedure: CT thoracic spine wo con Ordering Provider: Nanette Roberts P.A-C PROCEDURE: CT THORACIC SPINE WO CON INDICATIONS: fall, pain TECHNIQUE: Noncontrast 3 mm thick sections acquired through the region of interest in the thoracic spine. Sagittal and coronal reformats were then constructed. For radiation dose reduction, the following was used: automated exposure control. COMPARISON: None. FINDINGS: Image quality: Excellent. Bones: Partially visualized fixation hardware in the lower cervical spine. There is normal overall bony alignment. No acute vertebral body compression fractures. No suspicious sclerotic or lytic bony lesions. Central spinal canal is of normal overall caliber. Spine degenerative disc disease and facet arthropathy. Soft tissues: No paravertebral masses or hematomas. Visualized posteromedial lungs appear clear. Cholecystectomy clips. Scattered atherosclerotic calcifications noted in the abdominal pelvic vasculature. IMPRESSION: No fracture. No acute osseous lesion. If symptoms and/or clinical suspicion for pathology persists, evaluation with MRI may be helpful for further assessment. Dictated by: Allie Almanzar MD, PhD on 09/10/2018 at 13:32 Approved by: Allie Almanzar MD, PhD on 09/10/2018 at 13:46 <Sofia Vences DO - Last Filed: 09/11/18 07:51> Lab Data Lab Results 09/10/18 09/10/18 09/10/18 Range/Units 12:59 12:59 12:59 WBC 7.8 (4.5-11.0) X10^3/uL RBC 3.96 L (4.5-5.9) X10^6/uL Hgb 11.2 L (13.5-17.5) g/dL Hct 34.5 L (41-53) % MCV 87.2 (80-100) fL MCH 28.2 (26-34) PG MCHC 32.3 (30-36) % RDW 15.8 H (11.6-14.8) % Plt Count 349 (150-400) X10^3/uL Neut % (Auto) 73.0 (50-75) % Lymph % (Auto) 18.4 L (25-40) % Worth % (Auto) 7.6 (3-14) % Eos % (Auto) 0.5 L (2-4) % Baso % (Auto) 0.5 (0-2) % Neut # (Auto) 5700 (2904-8149) /uL Lymph # (Auto) 1400 (4356-4634) /uL Worth # (Auto) 600 (0-900) /uL Eos # (Auto) 0 (0-450) /uL Baso # (Auto) 0 (0-100) /uL PT 11.2 (10.1-12.7) SECONDS INR 1.0 (0.9-1.3) Sodium 139 (137-145) mmol/L Potassium 4.7 (3.4-5.1) mmol/L Chloride 107 (98-107) mmol/L Carbon Dioxide 21 L (22-32) mmol/L BUN 25 H (9-20) mg/dL Creatinine 1.10 (0.66-1.25) mg/dL Estimated GFR > 60.0 (>60) mL/min BUN/Creatinine Ratio 22.7 H (6-22) Glucose 111 H (80-110) mg/dL Calcium 9.3 (8.4-10.2) mg/dL Total Bilirubin 0.6 (0.2-1.3) mg/dL AST 25 (17-59) IU/L ALT 17 L (21-72) IU/L Alkaline Phosphatase 133 H (38-126) U/L Total Creatine Kinase (55-170) U/L CK-MB (CK-2) CK-MB (CK-2) Rel Index Troponin I (0.01-0.034) ng/mL Total Protein 7.4 (6.3-8.2) g/dL Albumin 4.3 (3.5-5.0) g/dL Globulin 3.1 (1.7-4.1) g/dL Albumin/Globulin Ratio 1.4 (1.0-2.8) 09/10/18 09/10/18 Range/Units 12:59 22:38 WBC (4.5-11.0) X10^3/uL RBC (4.5-5.9) X10^6/uL Hgb (13.5-17.5) g/dL Hct (41-53) % MCV (80-100) fL MCH (26-34) PG MCHC (30-36) % RDW (11.6-14.8) % Plt Count (150-400) X10^3/uL Neut % (Auto) (50-75) % Lymph % (Auto) (25-40) % Worth % (Auto) (3-14) % Eos % (Auto) (2-4) % Baso % (Auto) (0-2) % Neut # (Auto) (0206-2172) /uL Lymph # (Auto) (1171-1473) /uL Worth # (Auto) (0-900) /uL Eos # (Auto) (0-450) /uL Baso # (Auto) (0-100) /uL PT (10.1-12.7) SECONDS INR (0.9-1.3) Sodium (137-145) mmol/L Potassium (3.4-5.1) mmol/L Chloride (98-107) mmol/L Carbon Dioxide (22-32) mmol/L BUN (9-20) mg/dL Creatinine (0.66-1.25) mg/dL Estimated GFR (>60) mL/min BUN/Creatinine Ratio (6-22) Glucose (80-110) mg/dL Calcium (8.4-10.2) mg/dL Total Bilirubin (0.2-1.3) mg/dL AST (17-59) IU/L ALT (21-72) IU/L Alkaline Phosphatase (38-126) U/L Total Creatine Kinase 78 87 (55-170) U/L CK-MB (CK-2) TNP CK-MB (CK-2) Rel Index TNP Troponin I < 0.012 (0.01-0.034) ng/mL Total Protein (6.3-8.2) g/dL Albumin (3.5-5.0) g/dL Globulin (1.7-4.1) g/dL Albumin/Globulin Ratio (1.0-2.8) Point of Care Testing Glucose POC 121 Urine Dip Bedside Urine Glucose Negative Bedside Urine Bilirubin - Negative Bedside Urine Ketone - Negative Urine Specific [place] 1.015 Bedside Urine Occult Blood - Negative Bedside Urine pH 6.0 Bedside Urine Protein - Negative Bedside Urine Urobilinogen +/- 1mg Bedside Urine Nitrite - Negative Bedside Urine Leukocytes - Negative Esterase Discharge Plan Departure Patient Disposition: Admitted as Observation Clinical Impression: Intractable low back pain Fall with injury Qualifiers: Encounter type: initial encounter Qualified Code(s): W19.XXXA - Unspecified fall, initial encounter Discharge Date/Time: 09/10/18 17:25 Interventions: ED Discharge Assessment Last Done: 09/10/18 17:29 Admit Date/Time: 09/10/18 16:43 Admit Provider: Jen De Anda <Sofia Vences DO - Last Filed: 09/11/18 07:51> Cosign ED Attending Onel Attestation: I was immediately available in the department for consultation. Documentation has been reviewed. I agree with assessment and plan.
--- NOTE | 2018-09-10 12:59 | DI.CT.S_ITS ---
PROCEDURE: CT THORACIC SPINE WO CON INDICATIONS: fall, pain TECHNIQUE: Noncontrast 3 mm thick sections acquired through the region of interest in the thoracic spine. Sagittal and coronal reformats were then constructed. For radiation dose reduction, the following was used: automated exposure control. COMPARISON: None. FINDINGS: Image quality: Excellent. Bones: Partially visualized fixation hardware in the lower cervical spine. There is normal overall bony alignment. No acute vertebral body compression fractures. No suspicious sclerotic or lytic bony lesions. Central spinal canal is of normal overall caliber. Spine degenerative disc disease and facet arthropathy. Soft tissues: No paravertebral masses or hematomas. Visualized posteromedial lungs appear clear. Cholecystectomy clips. Scattered atherosclerotic calcifications noted in the abdominal pelvic vasculature. IMPRESSION: No fracture. No acute osseous lesion. If symptoms and/or clinical suspicion for pathology persists, evaluation with MRI may be helpful for further assessment. Dictated by: Allie Almanzar MD, PhD on 09/10/2018 at 13:32 Approved by: Allie Almanzar MD, PhD on 09/10/2018 at 13:46
--- NOTE | 2018-09-10 12:59 | DI.CT.S_ITS ---
PROCEDURE: CT LUMBAR SPINE WO CON INDICATIONS: fall, pain, h/o surgery TECHNIQUE: Noncontrast 3 mm thick sections acquired from the T12 level to the sacrum. Sagittal and coronal reformats were constructed. For radiation dose reduction, the following was used: automated exposure control. COMPARISON: None. FINDINGS: Image quality: Excellent. Bones: Postsurgical changes compatible with L4-S1 posterior fusion at L4 and L5 laminectomies. Orthopedic hardware is intact. No lucency is identified at the bone hardware interface. There is trace L2-L3 retrolisthesis. There is mild L4-L5 anterolisthesis. Multilevel degenerative disc disease and facet arthropathy are noted.. No acute vertebral body compression fractures. No suspicious lytic or blastic bony lesions. Central spinal caliber is of normal overall caliber. No pars defects. Soft tissues: No retroperitoneal masses or hematomas. Visualized aorta is normal in caliber. 1.3 cm nonobstructing right renal stone. Partially visualized 3 mm nonobstructing left renal stone. Cholecystectomy clips. IMPRESSION: No fracture. No acute osseous lesion. If symptoms and/or clinical suspicion for pathology persists, evaluation with MRI may be helpful for further assessment. Dictated by: Allie Almanzar MD, PhD on 09/10/2018 at 13:28 Approved by: Allie Almanzar MD, PhD on 09/10/2018 at 13:32
--- NOTE | 2018-09-10 12:59 | DI.CT.S_ITS ---
PROCEDURE: CT CERVICAL SPINE WO CON INDICATIONS: fall, pain, h/o surgery TECHNIQUE: Noncontrast 3 mm thick sections acquired from the skull base to the T4 level. Sagittal and coronal reformats were then constructed. For radiation dose reduction, the following was used: automated exposure control, adjustment of mA and/or kV according to patient size. COMPARISON: [facility], CT, C-SPINE WITHOUT CONTRAST, 05/08/2016, 11:09. FINDINGS: Image quality: Excellent. Bones: Postsurgical changes compatible C4-C7 ACDF are stable compared to 05/08/16.. No fractures or dislocations. Visualized superior ribs are intact. Spine degenerative disc disease and facet arthropathy. Soft tissues: Prevertebral soft tissues are normal in thickness. No paravertebral hematomas. No apical pneumothoraces. The heterotopic calcifications in the posterior paraspinal soft tissues are stable compared to prior exam. IMPRESSION: No fracture. No acute osseous lesion. If symptoms and/or clinical suspicion for pathology persists, evaluation with MRI may be helpful for further assessment. Dictated by: Allie Almanzar MD, PhD on 09/10/2018 at 13:22 Approved by: Allie Almanzar MD, PhD on 09/10/2018 at 13:27
--- NOTE | 2018-09-10 13:41 | PC.NURSE ---
C-collar removed. Cspine cleared by Annabel ELDER
[2018-09-10] MEDS: CYCLOBENZAPRINE 10 MG TABLET PO (14:26)
[2018-09-10] MEDS: HYDROMORPHONE 1 MG INJ 0.5 MG IV ×2 (15:10→16:17)
[2018-09-10 15:19] LABS: Add Manual Diff / Slide Review NO; Basophils Absolute Auto 0 /uL (0-100); Basophils Percent Auto 0.5 % (0-2); Eosinophils Absolute Auto 0 /uL (0-450); Eosinophils Percent Auto 0.5 % (2-4); Hematocrit 34.5 % (41-53); Hemoglobin 11.2 g/dL (13.5-17.5); Lymphocytes Absolute Auto 1400 /uL (1100-4500); Lymphocytes Percent Auto 18.4 % (25-40); Mean Corpuscular HGB Conc 32.3 % (30-36); Mean Corpuscular Hemoglobin 28.2 PG (26-34); Mean Corpuscular Volume 87.2 fL (80-100); Monocytes Absolute Auto 600 /uL (0-900); Monocytes Percent Auto 7.6 % (3-14); Neutrophils Absolute Auto 5700 /uL (1500-7000); Platelet Count 349 X10^3/uL (150-400); Red Blood Cell Count 3.96 X10^6/uL (4.5-5.9); Red Cell Distribution Width 15.8 % (11.6-14.8); White Blood Cell Count 7.8 X10^3/uL (4.5-11.0)
[2018-09-10 15:26] LABS: Prothrombin Time 11.2 SECONDS (10.1-12.7)
[2018-09-10 15:38] LABS: Alanine Aminotransferase 17 IU/L (21-72); Albumin 4.3 g/dL (3.5-5.0); Albumin Globulin Ratio 1.4 (1.0-2.8); Alkaline Phosphatase 133 U/L (38-126); Aspartate Aminotransferase 25 IU/L (17-59); BUN Creatinine Ratio 22.7 (6-22); Bilirubin Total 0.6 mg/dL (0.2-1.3); Blood Urea Nitrogen 25 mg/dL (9-20); Calcium 9.3 mg/dL (8.4-10.2); Carbon Dioxide 21 mmol/L (22-32); Chloride 107 mmol/L (98-107); Estimated Glomerular Filt Rate > 60.0 mL/min (>60); Globulin 3.1 g/dL (1.7-4.1); Glucose 111 mg/dL (80-110); HEMOLYSIS 23 (0-50); Potassium 4.7 mmol/L (3.4-5.1); Sodium 139 mmol/L (137-145); Total Protein 7.4 g/dL (6.3-8.2)
[2018-09-10] MEDS: KETOROLAC 60 MG/2 ML VIAL 30 MG IV (16:18)
[2018-09-10 16:46] LABS: Creatine Kinase 78 U/L (55-170)
--- NOTE | 2018-09-10 17:46 | PC.NURSE ---
Arrival to pt arrived at 1730. Able to reposition slowly in bed to assist with slider transfer. Reporting 9/10 pain and asking for pain medications. Denying n/v or dizziness. VSS. pt oriented to room. at bedside.
[2018-09-10] MEDS: OXYCODONE IR 5 MG TABLET 10 MG PO (18:59)
[2018-09-10] MEDS: MORPHINE 10 MG/ML INJ 6 MG IV (21:05)
[2018-09-10] MEDS: SODIUM CHLORIDE 0.9% FLUSH 10 ML IV ×2 (21:05→22:48)
--- NOTE | 2018-09-10 21:13 | PM.HP.1 ---
History of Present Illness Date Patient Seen: 09/10/18 Time Patient Seen: 21:14 Chief complaint: fall from a tree,lower back pain Narrative: The patient is a 63-year-old male who presented to the ED with lower back pain. Symptom onset is acute (1145 to 1200) and was preceded by a fall from a reported height of 7 ft. At time of the event patient was trying to caught branches from a rotten tree in his backyard. The saw got stuck within the branch and patient was waiting for his to hand him other tools to help dislodge the saw. At that time he saw the tree branch he was working on break off and fall toward him, he jumped off the ladder into the opposite direction. Reports landing flat on the ground. Do does not recall the position of his upper or lower extremities. Denies impact to the head or neck. Denies loss of consciousness. Noted presence of severe pain in his lower back immediately. He rolled onto his stomach for the following 10 minutes before getting up and walking back into the home. While walking noted shooting pain from lower back to the upper torso, neck, and left upper extremity. Once inside the house, he was able to sit upright in the chair; however, had difficulty getting up from the chair. At that point patient asked family to bring him to the hospital. He was able to walk to the car, but with difficulty, states he felt his left leg was giving out. Denies headache, neck pain, chest pain, pleurisy, shortness of breath, dizziness, lightheadedness, and nausea. He has not had any vomiting episodes. No hemoptysis. Denies paresthesia and weakness. No loss of bowel or bladder control. Experiencing pain predominantly in lower back at all times. Lumbar pain is severe and exacerbated with flexion at the hip, especially the left him. There is no paresthesia. No loss of bowel or bladder control. Imaging done in ED Cervical Spine CT - Post-surgical changes compatible C4-C7 ACDF are stable compared to 05/08/16. - No fractures or dislocations. - Visualized superior ribs are intact. No apical pneumothoraces. - Spine degenerative disc disease and facet arthropathy. - Prevertebral soft tissues are normal in thickness. No paravertebral hematomas. CT Thoracic Spine - Partially visualized fixation hardware in the lower cervical spine. Normal overall bony alignment. - No acute vertebral body compression fractures. - No suspicious sclerotic or lytic bony lesions. - Central spinal canal is of normal overall caliber. - Spine degenerative disc disease and facet arthropathy. Lumbar CT Spine Postsurgical changes compatible with L4-S1 posterior fusion at L4 and L5 laminectomies. Orthopedic hardware is intact. No lucency is identified at the bone hardware interface. There is trace L2-L3 retrolisthesis. There is mild L4-L5 anterolisthesis. Multilevel degenerative disc disease and facet arthropathy are noted. No acute vertebral body compression fractures. No suspicious lytic or blastic bony lesions. Central spinal caliber is of normal overall caliber. No pars defects. No retroperitoneal masses or hematomas. Visualized aorta is normal in caliber. 1.3 cm nonobstructing right renal stone. Partially visualized 3 mm nonobstructing left renal stone. Cholecystectomy clips. 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 Prior Living Arrangements - House. Lives in his own home. Employment - Currently works at the [employer] at [employer]. Retired from the [employer]. Safety & Behavioral: Feels Safe in Current Yes Environment Been Physically Hurt or No Threatened By a Person Suicidal Ideation Description None Suicide Plan Description No Plan Tobacco & Substance use: Tobacco type cigarettes Smoking Status Current every day smoker, 1/5 ppd 50+ yrs (since age 9) alcohol intake frequency 6 pack per week; denies heavy history of EtOH use Substance Use Type does not use Meds Home Medications Medication Instructions Recorded Confirmed Type Vitamin B-12 1 tab PO DAILY 09/10/18 09/10/18 History amlodipine 10 mg PO DAILY 09/10/18 09/10/18 History aspirin 81 mg PO DAILY 09/10/18 09/10/18 History diphenhydramine-acetaminophen 2 tab PO BEDTIME PRN 09/10/18 09/10/18 History [Tylenol PM Extra Strength] metformin 500 mg PO BID 09/10/18 09/10/18 History multivitamin 1 tab PO DAILY 09/10/18 09/10/18 History omeprazole 20 mg PO DAILY 09/10/18 09/10/18 History simvastatin 20 mg PO DAILY 09/10/18 09/10/18 History tamsulosin 0.4 mg PO DAILY 09/10/18 09/10/18 History telmisartan-hydrochlorothiazid 1 tab PO DAILY 09/10/18 09/10/18 History [Micardis HCT] Allergies Allergy/AdvReac Type Severity Reaction Status Date / Time NSAIDS (Non-Steroidal AdvReac Mild CAN TAKE, Verified 09/10/18 12:54 Anti-Inflamma BUT TRIES [NSAIDS (NON-STEROIDAL TO AVOID ANTI-INFLAMMA] R/T GASTRIC BYPASS Review of Systems Review of Systems All systems reviewed & are unremarkable except as noted in HPI and below Exam Vital Signs (past 8 hours): - 09/10/18 14:07 09/10/18 14:55 09/10/18 16:30 Temperature Pulse Rate 70 68 80 Respiratory Rate 14 17 Blood Pressure Blood Pressure [Right Arm] 117/68 127/65 130/68 Pulse Oximetry 98 100 100 09/10/18 17:38 Temperature 98.6 F Pulse Rate 74 Respiratory Rate 18 Blood Pressure 131/68 Blood Pressure [Right Arm] Pulse Oximetry 97 Oxygen Delivery Method Room Air Narrative Exam Narrative: Constitutional: NAD... GCS 15 Neurologic: AOx3, no focal neurological deficits Head: NC, AT Eyes: PERRL, EOMI, no periorbital ecchymosis, sclera anicteric Ears: external ears normal, no retroauricular ecchymosis Nose: external nose normal, no epistaxis Throat: MMM, oropharynx w/o exudate Neck: no tenderness of cervical spine Chest / Respiratory: equal chest rise, unlabored respiratory effort, no tachypnea, diminished breath sounds bilaterally Heart / CV: S1S2, no murmur Abdomen / GI: round, NT, ND, + BS, no organomegaly : no suprapubic tenderness Peripheral / Vascular: warm to touch, DP and PT pulses palpable, no edema Musc: full ROM of upper and lower extremities, no deformity noted, sensation intact, no weakness + lumbar lumbar (left) pain w/ straight leg rise. No joint effusion or deformity. No pelvic deformity. Spine: focal tenderness of spine and paraspinous processes over inferior (C6 C7, respectively), thoracic, lumbar spine able to rotate neck from sided to side (pain present) and up-and-down (no pain) pain in neck with LUE rise. Skin: no lacerations, abrasions, or ecchymosis. No focal hematomas noted. Objective Labs Result Diagrams: 09/10/18 12:59 09/10/18 12:59 Labs: Laboratory Results - last 24 hr 09/10/18 09/10/18 09/10/18 12:59 12:59 12:59 WBC 7.8 RBC 3.96 L Hgb 11.2 L Hct 34.5 L MCV 87.2 MCH 28.2 MCHC 32.3 RDW 15.8 H Plt Count 349 Neut % (Auto) 73.0 Lymph % (Auto) 18.4 L [place] % (Auto) 7.6 Eos % (Auto) 0.5 L Baso % (Auto) 0.5 Neut # (Auto) 5700 Lymph # (Auto) 1400 [place] # (Auto) 600 Eos # (Auto) 0 Baso # (Auto) 0 PT 11.2 INR 1.0 Sodium 139 Potassium 4.7 Chloride 107 Carbon Dioxide 21 L BUN 25 H Creatinine 1.10 Estimated GFR > 60.0 BUN/Creatinine Ratio 22.7 H Glucose 111 H Calcium 9.3 Total Bilirubin 0.6 AST 25 ALT 17 L Alkaline Phosphatase 133 H Total Creatine Kinase Total Protein 7.4 Albumin 4.3 Globulin 3.1 Albumin/Globulin Ratio 1.4 09/10/18 12:59 WBC RBC Hgb Hct MCV MCH MCHC RDW Plt Count Neut % (Auto) Lymph % (Auto) [place] % (Auto) Eos % (Auto) Baso % (Auto) Neut # (Auto) Lymph # (Auto) [place] # (Auto) Eos # (Auto) Baso # (Auto) PT INR Sodium Potassium Chloride Carbon Dioxide BUN Creatinine Estimated GFR BUN/Creatinine Ratio Glucose Calcium Total Bilirubin AST ALT Alkaline Phosphatase Total Creatine Kinase 78 Total Protein Albumin Globulin Albumin/Globulin Ratio Assessment & Plan Assessment & Plan narrative: Patient is admitted for pain control. S/P fall from a height. Fall from a height greater than 3 feet, acute, present on admission, active - Consult general surgery, re: traumatic fall - baseline EKG SR (v-rate 75); inferior [place], probably old. QT/QTc 336/364 - pain control (see pain plan of care) - TLSO brace - PT / OT eval and treat - IS, Q1H x10 while awake - Add CK, Trop - AM labs - CBC, BMP Spine pain (multi-level... cervical, thoracic, lumbar), acute, present on admission, active - Pain is severe, kylee trial... 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 Random glu 111. 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 Spouse is the surrogate decision make. VTE: SCDs, start on SQ heparin in AM Home meds reviewed and reconciled. Fall precautions. Scores GCS [place] coma scale eye opening: Spontaneous [place] coma scale verbal response: Orientated [place] coma scale motor response: Obey commands [place] coma scale total score: 15 Quality VTE Deep Vein Thrombosis/Pulmonary Embolism Present on Admission: No
--- NOTE | 2018-09-10 21:25 | P.HP_ITS ---
History of Present Illness Date Patient Seen: 09/10/18 Time Patient Seen: 21:14 Chief complaint: fall from a tree,lower back pain Narrative: The patient is a 63-year-old male who presented to the ED with lower back pain. Symptom onset is acute (1145 to 1200) and was preceded by a fall from a reported height of 7 ft. At time of the event patient was trying to caught branches from a rotten tree in his backyard. The saw got stuck within the branch and patient was waiting for his to hand him other tools to help dislodge the saw. At that time he saw the tree branch he was working on break off and fall toward him, he jumped off the ladder into the opposite direction. Reports landing flat on the ground. Do does not recall the position of his upper or lower extremities. Denies impact to the head or neck. Denies loss of consciousness. Noted presence of severe pain in his lower back immediately. He rolled onto his stomach for the following 10 minutes before getting up and walking back into the home. While walking noted shooting pain from lower back to the upper torso, neck, and left upper extremity. Once inside the house, he was able to sit upright in the chair; however, had difficulty getting up from the chair. At that point patient asked family to bring him to the hospital. He was able to walk to the car, but with difficulty, states he felt his left leg was giving out. Denies headache, neck pain, chest pain, pleurisy, shortness of breath, dizzine ss, lightheadedness, and nausea. He has not had any vomiting episodes. No hemoptysis. Denies paresthesia and weakness. No loss of bowel or bladder control. Experiencing pain predominantly in lower back at all times. Lumbar pain is severe and exacerbated with flexion at the hip, especially the left him. There is no paresthesia. No loss of bowel or bladder control. Imaging done in ED Cervical Spine CT - Post-surgical changes compatible C4-C7 ACDF are stable compared to 05/08/16. - No fractures or dislocations. - Visualized superior ribs are intact. No apical pneumothoraces. - Spine degenerative disc disease and facet arthropathy. - Prevertebral soft tissues are normal in thickness. No paravertebral hematomas. CT Thoracic Spine - Partially visualized fixation hardware in the lower cervical spine. Normal overall bony alignment. - No acute vertebral body compression fractures. - No suspicious sclerotic or lytic bony lesions. - Central spinal canal is of normal overall caliber. - Spine degenerative disc disease and facet arthropathy. Lumbar CT Spine Postsurgical changes compatible with L4-S1 posterior fusion at L4 and L5 laminectomies. Orthopedic hardware is intact. No lucency is identified at the bone hardware interface. There is trace L2-L3 retrolisthesis. There is mild L4- L5 anterolisthesis. Multilevel degenerative disc disease and facet arthropathy are noted. No acute vertebral body compression fractures. No suspicious lytic or blastic bony lesions. Central spinal caliber is of normal overall caliber. No pars defects. No retroperitoneal masses or hematomas. Visualized aorta is normal in caliber. 1.3 cm nonobstructing right renal stone. Partially visualized 3 mm nonobstructing left renal stone. Cholecystectomy clips. Patient History Medical History Degenerative disc disease (Chronic) HTN (hypertension) (Chronic) Hypertriglyceridemia (Chronic) 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) History of bleeding ulcers (Resolved) Nephrolithiasis (Resolved) Surgical History History of cervical spinal surgery (Resolved) Status post lumbar surgery (Resolved) History of cholecystectomy (Resolved) History of gastric bypass (Resolved) Social History household members: spouse Smoking Status: Current every day smoker Family & Social History Family History (Updated 09/11/18 @ 05:49 by JANEEN Berrios) Mother No known health problems Father No known health problems Social History: Household members - Spouse and [id number]. Prior Living Arrangements - House. Lives in his own home. Employment - Currently works at the [employer] ([employer]). Retired from the [employer]. Safety & Behavioral: Feels Safe in Current Yes Environment Been Physically Hurt or No Threatened By a Person Suicidal Ideation Description None Suicide Plan Description No Plan Tobacco & Substance use: Tobacco type cigarettes Smoking Status Current every day smoker, 1/5 ppd 50+ yrs (since age 9) alcohol intake frequency 6 pack per week; denies heavy history of EtOH use Substance Use Type does not use Meds Home Medications Medication Instructions Recorded Confirmed Type Vitamin B-12 1 tab PO DAILY 09/10/18 09/10/18 History amlodipine 10 mg PO DAILY 09/10/18 09/10/18 History aspirin 81 mg PO DAILY 09/10/18 09/10/18 History diphenhydramine-acetaminophen 2 tab PO BEDTIME PRN 09/10/18 09/10/18 History [Tylenol PM Extra Strength] metformin 500 mg PO BID 09/10/18 09/10/18 History multivitamin 1 tab PO DAILY 09/10/18 09/10/18 History omeprazole 20 mg PO DAILY 09/10/18 09/10/18 History simvastatin 20 mg PO DAILY 09/10/18 09/10/18 History tamsulosin 0.4 mg PO DAILY 09/10/18 09/10/18 History telmisartan-hydrochlorothiazid 1 tab PO DAILY 09/10/18 09/10/18 History [Micardis HCT] Allergies Allergy/AdvReac Type Severity Reaction Status Date / Time NSAIDS (Non-Steroidal AdvReac Mild CAN TAKE, Verified 09/10/18 12:54 Anti-Inflamma BUT TRIES [NSAIDS (NON-STEROIDAL TO AVOID ANTI-INFLAMMA] R/T GASTRIC BYPASS Review of Systems Review of Systems All systems reviewed & are unremarkable except as noted in HPI and below Exam Vital Signs (past 8 hours): - 09/10/18 14:07 09/10/18 14:55 09/10/18 16:30 Temperature Pulse Rate 70 68 80 Respiratory Rate 14 17 Blood Pressure Blood Pressure [Right Arm] 117/68 127/65 130/68 Pulse Oximetry 98 100 100 09/10/18 17:38 Temperature 98.6 F Pulse Rate 74 Respiratory Rate 18 Blood Pressure 131/68 Blood Pressure [Right Arm] Pulse Oximetry 97 Oxygen Delivery Method Room Air Narrative Exam Narrative: Constitutional: NAD... GCS 15 Neurologic: AOx3, no focal neurological deficits Head: NC, AT Eyes: PERRL, EOMI, no periorbital ecchymosis, sclera anicteric Ears: external ears normal, no retroauricular ecchymosis Nose: external nose normal, no epistaxis Throat: MMM, oropharynx w/o exudate Neck: no tenderness of cervical spine Chest / Respiratory: equal chest rise, unlabored respiratory effort, no tachypnea, diminished breath sounds bilaterally Heart / CV: S1S2, no murmur Abdomen / GI: round, NT, ND, + BS, no organomegaly : no suprapubic tenderness Peripheral / Vascular: warm to touch, DP and PT pulses palpable, no edema Musc: full ROM of upper and lower extremities, no deformity noted, sensation intact, no weakness + lumbar lumbar (left) pain w/ straight leg rise. No joint effusion or deformity. No pelvic deformity. Spine: focal tenderness of spine and paraspinous processes over inferior (C6 C7, respectively), thoracic, lumbar spine able to rotate neck from sided to side (pain present) and up-and-down (no pain) pain in neck with LUE rise. Skin: no lacerations, abrasions, or ecchymosis. No focal hematomas noted. Objective Labs Result Diagrams: 09/10/18 12:59 09/10/18 12:59 Labs: Laboratory Results - last 24 hr 09/10/18 09/10/18 09/10/18 12:59 12:59 12:59 WBC 7.8 RBC 3.96 L Hgb 11.2 L Hct 34.5 L MCV 87.2 MCH 28.2 MCHC 32.3 RDW 15.8 H Plt Count 349 Neut % (Auto) 73.0 Lymph % (Auto) 18.4 L Norton % (Auto) 7.6 Eos % (Auto) 0.5 L Baso % (Auto) 0.5 Neut # (Auto) 5700 Lymph # (Auto) 1400 Norton # (Auto) 600 Eos # (Auto) 0 Baso # (Auto) 0 PT 11.2 INR 1.0 Sodium 139 Potassium 4.7 Chloride 107 Carbon Dioxide 21 L BUN 25 H Creatinine 1.10 Estimated GFR > 60.0 BUN/Creatinine Ratio 22.7 H Glucose 111 H Calcium 9.3 Total Bilirubin 0.6 AST 25 ALT 17 L Alkaline Phosphatase 133 H Total Creatine Kinase Total Protein 7.4 Albumin 4.3 Globulin 3.1 Albumin/Globulin Ratio 1.4 09/10/18 12:59 WBC RBC Hgb Hct MCV MCH MCHC RDW Plt Count Neut % (Auto) Lymph % (Auto) Norton % (Auto) Eos % (Auto) Baso % (Auto) Neut # (Auto) Lymph # (Auto) Norton # (Auto) Eos # (Auto) Baso # (Auto) PT INR Sodium Potassium Chloride Carbon Dioxide BUN Creatinine Estimated GFR BUN/Creatinine Ratio Glucose Calcium Total Bilirubin AST ALT Alkaline Phosphatase Total Creatine Kinase 78 Total Protein Albumin Globulin Albumin/Globulin Ratio Assessment & Plan Assessment & Plan narrative: Patient is admitted for pain control. S/P fall from a height. Fall from a height greater than 3 feet, acute, present on admission, active - Consult general surgery, re: traumatic fall - baseline EKG SR (v-rate 75); inferior NV, probably old. QT/QTc 336/364 - pain control (see pain plan of care) - TLSO brace - PT / OT eval and treat - IS, Q1H x10 while awake - Add CK, Trop - AM labs - CBC, BMP Spine pain (multi-level... cervical, thoracic, lumbar), acute, present on admission, active - Pain is severe, kylee trial... fentanyl patch 50 mcg Q72 hours flexeril 5 mg Q8H prn tylenol 975 mg Q8h x3 days scheduled, then re-evaluate lidocaine patch daily, for neck pain oxy IR 10 mg morphine 4 mg IV prn for breakthrough pain - will need to monitor QT interval periodically - Monitor for sedation, continuous pulse oxymetry - Bowel regimen Essential hypertension, chronic condition, present on admission, controlled LABEL SEWER on amlodipine 10 mg QD and micardis HCTZ - Continue trending BP - Resume amlodipine and micardia, hold HCTZ DM 2T (no known complications), chronic condition, present on admission, stable LABEL SEWER on metformin 500 mg BID. Random glu 111. - Hold LABEL SEWER metformin - Trend PO BG BID, if > [address] on SSI Dyslipidemia, chronic condition, present on admission, stable - Resume LABEL SEWER simvastatin 20 mg QD BPH, chronic condition, present on admission, stable - Resume LABEL SEWER tamsulosin 0.4 mg QD Full Code. Spouse is the surrogate decision make. VTE: SCDs, start on SQ heparin in AM Home meds reviewed and reconciled. Fall precautions. Scores GCS Jesusita coma scale eye opening: Spontaneous Jesus[place] coma scale verbal response: Orientated Jesusita coma scale motor response: Obey commands [place] coma scale total score: 15 Quality VTE Deep Vein Thrombosis/Pulmonary Embolism Present on Admission: No
[2018-09-10] MEDS: GABAPENTIN 300 MG CAPSULE PO (21:58)
[2018-09-10] MEDS: ACETAMINOPHEN 325 MG TABLET 975 MG PO (21:58)
[2018-09-10] MEDS: DOCUSATE 100 MG CAPSULE PO (21:59)
[2018-09-10] MEDS: LIDOCAINE PATCH 1 EACH ADH..PATCH TOP (21:59)
[2018-09-10] MEDS: fentaNYL 50 MCG/PATCH TOP (21:59)
[2018-09-10] MEDS: SODIUM CHLORIDE 0.9% 1,000 ML 100 ML IV (22:47)
[2018-09-10 22:58] LABS: Creatine Kinase 87 U/L (55-170)
[2018-09-10 23:10] LABS: Troponin I < 0.012 ng/mL (0.01-0.034)
[2018-09-10] MEDS: CYCLOBENZAPRINE 5 MG TABLET PO (23:42)
[2018-09-10] MEDS: ONDANSETRON 4 MG/2 ML INJ IV (23:42)
--- NOTE | 2018-09-11 00:12 | PC.NURSE ---
Addendum entered by Ludmila Feng R.N. 09/11/18 04:01: Slept for past hour and now says pain is back to 8/10; medicated with IV Morphine and agreeable to trying ice pack. Addendum entered by Ludmila Feng R.N. 09/11/18 02:23: Able to get up and stand at beside to void. Great difficulty getting out of bed due to pain but once out of bed needed only SBA. States pain is better but rates severity as 6/10; medicated with Tramadol (JANEEN Reed, ordered earlier and wanted it given next time he requested pain medication). Patient is aware if Tramadol is ineffective he can still have Morphine later. Original Note: Patient is alert and oriented. Breath sounds very diminished but CTA with RA sat of 97%; on continuous pulse oximetry. Discussed importance of CDB and use of I.S. and patient verbalizes understanding. HRR. Had 25cc emesis of yellow, thick, phlegm and states he is feeling nauseated; medicated with Zofran. Complains of 8/10 lower back pain radiating up into left side of neck; medicated with IV Morphine + Flexeril and discussed nausea/pain control with JANEEN Reed. Able to turn self in bed. Has not yet attempted to get out of bed and has not urinated since admission so once pain more manageable wants to attempt to stand at bedside to use urinal. Declines ice pack for pain. Chronic plantar surface neuropathy bilateral feet is unchanged since prior to admit. Lab drawn earlier showing glucose of 111. Fall risk score is high and bed alarm is activated.
[2018-09-11] MEDS: TRAMADOL 50 MG TABLET PO ×3 (02:21→13:11)
[2018-09-11] MEDS: MORPHINE 4 MG/ML INJ IV ×2 (03:58→09:58)
[2018-09-11 04:14] VITALS: BP 110/41; PULSE 80; RESP 16; TEMP 37.1; O2SAT 97
[2018-09-11] MEDS: PANTOPRAZOLE 40 MG TABLET PO (05:30)
[2018-09-11] MEDS: ACETAMINOPHEN 325 MG TABLET 975 MG PO ×2 (05:30→13:12)
[2018-09-11 07:30] VITALS: BP 161/86; PULSE 74; RESP 16; TEMP 37; O2SAT 98
[2018-09-11] MEDS: GABAPENTIN 300 MG CAPSULE PO ×2 (08:18→15:08)
[2018-09-11] MEDS: ASPIRIN EC 81 MG TABLET PO (08:18)
[2018-09-11] MEDS: DOCUSATE 100 MG CAPSULE PO (08:18)
[2018-09-11] MEDS: TELMISARTAN 40 MG TABLET 80 MG PO (08:19)
[2018-09-11] MEDS: CYCLOBENZAPRINE 5 MG TABLET PO (08:19)
[2018-09-11] MEDS: SIMVASTATIN 20 MG TABLET PO (08:19)
[2018-09-11] MEDS: AMLODIPINE 5 MG TABLET 10 MG PO (08:19)
[2018-09-11 08:20] VITALS: O2SAT 97
[2018-09-11] MEDS: TAMSULOSIN 0.4 MG CAPSULE PO (08:20)
[2018-09-11] MEDS: SODIUM CHLORIDE 0.9% 1,000 ML 100 ML IV (08:28)
[2018-09-11 08:51] LABS: Add Manual Diff / Slide Review NO; Basophils Absolute Auto 0 /uL (0-100); Basophils Percent Auto 0.4 % (0-2); Eosinophils Absolute Auto 0 /uL (0-450); Eosinophils Percent Auto 0.7 % (2-4); Hematocrit 31.7 % (41-53); Hemoglobin 10.3 g/dL (13.5-17.5); Lymphocytes Absolute Auto 900 /uL (1100-4500); Lymphocytes Percent Auto 12.9 % (25-40); Mean Corpuscular HGB Conc 32.5 % (30-36); Mean Corpuscular Hemoglobin 28.5 PG (26-34); Mean Corpuscular Volume 87.8 fL (80-100); Monocytes Absolute Auto 800 /uL (0-900); Monocytes Percent Auto 11.7 % (3-14); Neutrophils Absolute Auto 5100 /uL (1500-7000); Neutrophils Percent Auto 74.3 % (50-75); Platelet Count 264 X10^3/uL (150-400); Red Cell Distribution Width 15.5 % (11.6-14.8); White Blood Cell Count 6.8 X10^3/uL (4.5-11.0)
[2018-09-11 08:55] LABS: BUN Creatinine Ratio 33.3 (6-22); Blood Urea Nitrogen 30 mg/dL (9-20); Calcium 8.4 mg/dL (8.4-10.2); Carbon Dioxide 23 mmol/L (22-32); Chloride 104 mmol/L (98-107); Estimated Glomerular Filt Rate > 60.0 mL/min (>60); Glucose 121 mg/dL (80-110); HEMOLYSIS < 15 (0-50); Potassium 4.8 mmol/L (3.4-5.1); Sodium 136 mmol/L (137-145)
[2018-09-11] MEDS: predniSONE 20 MG TABLET 40 MG PO (09:59)
[2018-09-11 10:38] LABS: Urine Amphetamines Negative (Negative); Urine Cocaine Negative (Negative); Urine MDMA Negative (Negative); Urine Methamphetamines Negative (Negative); Urine Morphine/Opi cutoff 2000 Positive (Negative); Urine Phencyclidine Negative (Negative); Urine Tetrahydrocannabinol Negative (Negative)
[2018-09-11 10:39] LABS: Urine Barbiturates Negative (Negative); Urine Benzodiazepines Negative (Negative); Urine Oxycodone Positive (Negative); Urine Tricyclic Antidepressant Positive (Negative)
--- NOTE | 2018-09-11 10:46 | PT.IIE ---
Surgical History (Last Reviewed 09/11/18 @ 05:48 by JANEEN Berrios) History of cervical spinal surgery (Resolved) Status post lumbar surgery (Resolved) History of cholecystectomy (Resolved) History of gastric bypass (Resolved) Medical History (Last Reviewed 09/10/18 @ 21:58 by JANEEN Berrios) Degenerative disc disease (Chronic) HTN (hypertension) (Chronic) Hypertriglyceridemia (Chronic) 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) History of bleeding ulcers (Resolved) Nephrolithiasis (Resolved) Physical Therapy Inpatient Evaluation/Re-Eval M1 PT/OT-IP Prior Functional Status Start: 09/11/18 12:30 Freq: NEEDED Status: Active Protocol: Document 09/11/18 10:46 AB (Rec: 09/11/18 12:52 AB [id number]) Medical Review Prior Functional Status Medical History Reviewed Yes Diet/Fluid Consistency Regular Communication able to make needs known Mobility and Gait pt stated that he is independent witha ll mobilities and ambulation without AD Social History Household Members spouse family Living Arrangements House Number of Floors (Floors) One Floor Number of Stairs To Enter/Railing? 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 M2 PT-IP Current Condition Start: 09/11/18 12:30 Freq: NEEDED Status: Active Protocol: Document 09/11/18 10:46 AB (Rec: 09/11/18 12:52 AB [id number]) Physical Therapy Current Condition Current Condition Evaluation Date 09/11/18 Treatment Diagnosis back pain; difficulty in walking Onset Date 09/10/18 Precautions Lumbar Precautions Log Roll No Twisting Limit Bending Lifting Restriction of 10 lbs Gait Belt above Incisional Area Brace applied TLSO brace M3 PT-IP Subjective Start: 09/11/18 12:30 Freq: NEEDED Status: Active Protocol: Document 09/11/18 10:46 AB (Rec: 09/11/18 12:52 AB [id number]) Subjective Physical Therapy Visit Type Type Initial Evaluation Visit Start Time 10:46 Visit Stop Time 11:50 Total Visit Minutes 64 Number of [employer] SUPERINTENDENT Visits 0 Physical Therapy Visit Comments Patient Comments pt agreed to do PT Therapy Pain Assessment Pain When Pain Assessed At Rest Pain Present Pain Present Pain Reported Location Back Intensity 8 Scale Used Numeric (1 - 10) Pain Management Techniques Modification of Treatment Re-positioning Timing of Activity with Medications M4 PT-IP Mobility and Gait Start: 09/11/18 12:30 Freq: NEEDED Status: Active Protocol: Document 09/11/18 10:46 AB (Rec: 09/11/18 12:52 AB [id number]) PT-Bed Mobility Assessment Rolling Type of Rolling Log Rolling Level of Assist Minimal Assistance Supine to Sit Supine to Sit Maximum Assistance 1 Person Assistance Bedrails Scooting Scooting to Edge of Bed Standby Assistance PT-Transfer Assessment Sit to and From Stand Sit to and from Stand Minimal Assistance Equipment Transfer Assistive Device Gait Belt Front Wheeled Walker Orthotic/Prosthetic Devices or Brace: Yes Transfers Transfer Destination Chair Transfer Technique Stand Step Pivot Transfer Ability Level of Assist Minimal Assistance 1 Person Assistance Use of Upper Extremities Comments Mobility Comments pt educated on back precautions. completed log roll bed mobility supine to sit max A and max cues. pt was able to sit on EOB SBA. BP: 122/63. pt completed sit to stand from EOB min A and cues. attempted to walk and took ~ 3 steps using FWW min A and c/o dizziness. instructed pt to back up on the chair and completed using FWW min A. BP checked: 93/56. pt rested for a few minutes. completed sit to stand from the chair min A and cues and TLSO brace readjusted. pt c/o dizziness again. pt sat back on the chair. BP checked: 105 /55. informed nurse regarding decrease in BP Gait Assessment Gait Gait Assistance Required: Minimum Assistance Distance (Feet) 2 Able to Maintain Weight Bearing Status Yes During Gait Assistive Devices Assistive Device Gait Belt Front Wheeled Walker Orthotic/Prosthetic Devices or Brace: Yes Gait Deviations General Gait Pattern Antalgic Decreased Stride Length Decreased Feet Clearance Factors Limiting Gait Function Factors Limiting Gait Function Decreased Activity Tolerance Decreased Strength Pain Poor Balance Poor Safety Awareness PT-Balance Assessment Sitting Balance and Reactions Static Sitting Balance Ability Good Dynamic Sitting Balance Ability Good Standing Balance and Reactions Static Standing Balance Ability Fair Dynamic Standing Balance Ability Fair Device Used FWW M5 PT-IP Objective Assessments Start: 09/11/18 12:30 Freq: NEEDED Status: Active Protocol: Document 09/11/18 10:46 AB (Rec: 09/11/18 12:52 AB [id number]) Orientation Orientation/Cognition Level of Alertness Alert Orientation Name Age Birthday Month Date Year Day of Week Place Situation Language Function Ability No Deficits Noted Safety Awareness Decreased Safety Awareness Memory Description No Deficits Noted Gross Range of Motion Lower Extremity ROM Assessment Within Functional Limits Strength Lower Extremity Strength Assessment Bilaterally Impaired Comments Strength Comments RLE: 4-/5 LLE: 3+/5 Coordination Assessment Gross Coordination Gross Coordination WNL Sensation Assessment Sensation Gross Sensation WNL Muscle Tone Muscle Tone WNL Yes Other Assessments Other Other Assessments pt c/o more of L sided low back pain more towards the SI joint M6 PT-IP Treatment Start: 09/11/18 12:30 Freq: NEEDED Status: Active Protocol: Document 09/11/18 10:46 AB (Rec: 09/11/18 12:52 AB [id number]) Physical Therapy Treatment Education Education Provided Precautions Safety Equipment Issued Equipment Type and Company TLSO 09/11/18: [employer] Other Treatments Other Treatment Performed TLSO brace order received. fitted pt with TLSO brace and pt tolerating well. M7 PT-IP Assessment and Plan Start: 09/11/18 12:30 Freq: NEEDED Status: Active Protocol: Document 09/11/18 10:46 AB (Rec: 09/11/18 12:52 AB [id number]) PT Summary Assessment and Plan Potential Rehabilitation Potential Good Status of Condition at Evaluation Evolving Summary Impairments Pain ROM Strength Balance Coordination Sensation Tone Cognition Bed Mobility Transfers Gait Activity Tolerance Assessment Summary pt unable to tolerate much activity due to c/o dizziness, decrease in BP and also c/o increase pain. d/c plan depending if family will be able to assist pt at home. will continue to assess but at this time, pt may require SNF rehab. Goals Bed Mobility Goal Standby Assistance Transfer Goal Standby Assistance Front Wheeled Walker Gait Goal Standby Assistance Front Wheel Walker Gait Distance 200 Other Goals up/down 3 steps R rail ascending SBA Days to Meet Goals 10 Frequency of Treatment Frequency Of Treatment Twice a Day Treatment Plan Physical Therapy Treatment Plan Bed Mobility Training Transfer Training Gait Training Therapeutic Exercise Balance Retraining Post Op Education Discharge Planning Hot or Cold Pack Neuromuscular Re-ed Coordination Retraining Manual Therapy Other Recommendations and Next Treatment ambulation, bed mobility, Focus stair climbing Recommendations To Nursing Amount of Assist Needed 1 Person Assist Discharge Recommendations PT Discharge Recommendations Home with / Assist Home Health SNF Rehab Other Discharge Recommendations depending on progress: SNF vs home /homehealth
--- NOTE | 2018-09-11 10:50 | PC.NURSE ---
Pt complains of pain this am, given tramadol and flexaril for discomfort. Checked on an hour or so later and pt states that this is not working for his pain. Pt also has a fentanyl patch on. into see patient and has requested a u/a to be done and this has already been sent down to lab. Pt given 4mg of iv morphine and reported to that this has been given. She has now d/cd the order as we are trying to get the patient discharged to home and he will only be going home on po pain medication. Daughter at bedside visiting. Pt voices no complaints at this time.
[2018-09-11 11:15] VITALS: BP 122/62; PULSE 82; RESP 16; TEMP 36.9; O2SAT 98
[2018-09-11 13:21] LABS: Urine Methadone Negative (Negative)
--- NOTE | 2018-09-11 13:55 | PT.IPTN ---
Physical Therapy Treatment Note M2 PT-IP Current Condition Start: 09/11/18 12:30 Freq: NEEDED Status: Active Protocol: Document 09/11/18 10:46 AB (Rec: 09/11/18 12:52 AB [id number]) Physical Therapy Current Condition Current Condition Evaluation Date 09/11/18 Treatment Diagnosis back pain; difficulty in walking Onset Date 09/10/18 Precautions Lumbar Precautions Log Roll No Twisting Limit Bending Lifting Restriction of 10 lbs Gait Belt above Incisional Area Brace applied TLSO brace M3 PT-IP Subjective Start: 09/11/18 12:30 Freq: NEEDED Status: Active Protocol: Document 09/11/18 13:55 AB (Rec: 09/11/18 15:19 AB [id number]) Subjective Physical Therapy Visit Type Type Treatment Note Visit Start Time 13:55 Visit Stop Time 14:43 Total Visit Minutes 48 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 0 Physical Therapy Visit Comments Patient Comments pt agreeable to do PT Therapy Pain Assessment Pain When Pain Assessed At Rest Pain Present Pain Present Pain Reported Location Back Intensity 4 Scale Used Numeric (1 - 10) Pain Management Techniques Re-positioning Timing of Activity with Medications M4 PT-IP Mobility and Gait Start: 09/11/18 12:30 Freq: NEEDED Status: Active Protocol: Document 09/11/18 13:55 AB (Rec: 09/11/18 15:19 AB [id number]) PT-Bed Mobility Assessment Rolling Type of Rolling Log Rolling Level of Assist Standby Assistance Supine to Sit Supine to Sit Standby Assistance Sit to Supine Sit to Supine Standby Assistance Scooting Scooting to Edge of Bed Standby Assistance PT-Transfer Assessment Sit to and From Stand Sit to and from Stand Standby Assistance Contact Guard Assistance Equipment Transfer Assistive Device Gait Belt Front Wheeled Walker Orthotic/Prosthetic Devices or Brace: Yes Transfers Transfer Destination Bed Transfer Technique Stand Step Pivot Transfer Ability Level of Assist Contact Guard Assistance Comments Mobility Comments BP checked: sitting on chair: 95/59 standin/51 pt instructed to sit back down. pt rested. BP sittin/59 pt completed standing again BP 90/50 after 2 min of standing 90/51. pt without c/ o dizziness/lightheadedness/ nausea. spouse present and caregiver training conducted. educated spouse on how to lance/doff TLSO brace, how to use safety belt and how to assist pt. Spouse was able to counter demonstrate. pt completed bed mobility supine to sit SBA. educated spouse on regarding log roll technique, sit<>stand technique and to cue pt when needed. Gait Assessment Gait Gait Assistance Required: Standby Assistance Contact Guard Assist Distance (Feet) 125 Able to Maintain Weight Bearing Status Yes During Gait Assistive Devices Assistive Device Gait Belt Front Wheeled Walker Orthotic/Prosthetic Devices or Brace: Yes Gait Deviations General Gait Pattern Antalgic Decreased Stride Length Decreased Feet Clearance Factors Limiting Gait Function Factors Limiting Gait Function Decreased Activity Tolerance Decreased Strength Limited Range of Motion Pain Poor Balance Comments Gait Comments pt was able to ambulateusing FWW ~ 125 ft SBA to CGA with spouse assisting. Stair Climbing Assessment Evaluation Level of Assist On Stairs Contact Guard Assistance Minimal Assistance Devices Stair Climbing Assistive Devices Left Railing Technique/Endurance Stair Climbing Direction Ascend and Descend Stair Climbing Technique Step to Step Number of Steps Climbed 3 Stair Climbing Set # Repetitions (reps) 1 Comments Stair Climbing Comments educated pt and PT demontrated on how to do stairs. pt completed stairs with spouse assisted and completed safely. M5 PT-IP Objective Assessments Start: 09/11/18 12:30 Freq: NEEDED Status: Active Protocol: Document 09/11/18 10:46 AB (Rec: 09/11/18 12:52 AB [id number]) Orientation Orientation/Cognition Level of Alertness Alert Orientation Name Age Birthday Month Date Year Day of Week Place Situation Language Function Ability No Deficits Noted Safety Awareness Decreased Safety Awareness Memory Description No Deficits Noted Gross Range of Motion Lower Extremity ROM Assessment Within Functional Limits Strength Lower Extremity Strength Assessment Bilaterally Impaired Comments Strength Comments RLE: 4-/5 LLE: 3+/5 Coordination Assessment Gross Coordination Gross Coordination WNL Sensation Assessment Sensation Gross Sensation WNL Muscle Tone Muscle Tone WNL Yes Other Assessments Other Other Assessments pt c/o more of L sided low back pain more towards the SI joint M6 PT-IP Treatment Start: 09/11/18 12:30 Freq: NEEDED Status: Active Protocol: Document 09/11/18 13:55 AB (Rec: 09/11/18 15:19 AB [id number]) Physical Therapy Treatment Education Education Provided Precautions Safety Brace Education [place] Patient Caregiver Equipment Issued Equipment Type and Company TLSO issued today: brace from [employer] M7 PT-IP Assessment and Plan Start: 09/11/18 12:30 Freq: NEEDED Status: Active Protocol: Document 09/11/18 13:55 AB (Rec: 09/11/18 15:19 AB [id number]) PT Summary Assessment and Plan Potential Rehabilitation Potential Good Summary Impairments Pain ROM Strength Balance Coordination Bed Mobility Transfers Gait Activity Tolerance Progress Towards Goals Progressing Toward Goals Assessment Summary pt doing better this afternoon . BP still low but pt is asymptomatic and was able to tolerate upright activities well. caregiver training conducted and spouse was able to safely assist pt with all mobilities. educated pt on safety and back precautions and recommendation of out patient PT. pt understood and agreed. Goals Bed Mobility Goal Independent Transfer Goal Independent Front Wheeled Walker Gait Goal Independent Front Wheel Walker Gait Distance 300 Other Goals up/down 3 steps L rail ascending mod I Days to Meet Goals 5 Frequency of Treatment Frequency Of Treatment Twice a Day Treatment Plan Physical Therapy Treatment Plan Bed Mobility Training Transfer Training Gait Training Therapeutic Exercise Balance Retraining Discharge Planning Hot or Cold Pack Neuromuscular Re-ed Coordination Retraining Manual Therapy Recommendations To Nursing Amount of Assist Needed 1 Person Assist Discharge Recommendations PT Discharge Recommendations Home with Assistance Outpatient PT
--- NOTE | 2018-09-11 14:02 | CM.DANOTE ---
Addendum entered by ADAM Wan 09/11/18 15:14: ADD: SW updated MD and pt is stable for d/c home with family support today and per PT pt was able to manage stairs and completed CG training. Return call from [facility] stating that they also are contracted with but need PCP to initiate HH services. MINERVA met bedside with pt and family and updated on [facility] process of needing PCP to initiate HH and provided pt with the [facility] and [facility] brochures and discussed possible option of [facility] as well and they remember needing to initiate HH through PCP and pt already is set to see his PCP on Thursday this week and will discuss HH at that time. Pt sees PCP through the [facility] and discussed that once he turns 64 he switches to [facility] and obtains his Medicare. Pt and family agreeable to d/c home today. Plan: Patient to d/c home via spouse POV and will see his PCP on Thursday and request HH initiation. ADAM Wan Original Note: Patient is a 63 year old male who was admitted on 09/10/18 for Back Pain, Fall. Pt has [employer] for insurance and his PCP is not listed. EMR was reviewed. Per MD, pt fell/had to jump off ladder and landed on his back but has no fx for surgical intervention but a hx of surgery and back issues. Back braced ordered and PT ordered to help with brace placement and eval. Per PT, pt has significant pain and requires assist with standing and his bp dropped while working with therapy. PT to complete further CG training and stairs this afternoon to help determine if pt safe for d/c home and if HH needed. MINERVA met bedside with pt, spouse, and MIL and explained role and they confirm that they live at home together in [place] and pt is Independent with ADL's at baseline and works at [employer] after retiring from the [employer]. Pt drives and denies any hx of SNF but states after surgery last year for sepsis/ulcers/medical issues that he did have HH RN after discharge. Pt states that his preference is to d/c home with family today if medically stable and would be agreeable to HH if needed. signed F2F in anticipation of pt likely needing HH pending final PT recommendations and pain levels. MINERVA called [facility] and left a msg to inquire if they take pt's insurance. SW called [facility] and spoke to Josephine who states they are contracted with [facility] but that the hospital or PCP office needs to initiate referral for HH through [facility] and that it tends to be a big process. Josephine states that likely SW will need to fax referral and clinicals to their [facility] office as well as to PCP to request they initiate HH for the pt. SW attempted to call [facility] ([phone]) and they are closed for the weekend. Plan: SW to confirm pt's PCP and home address with pt bedside after final PT towards help in setting up HH if needed for d/c. ADAM Wan Discharge Planning/Care Management Advanced directive, confirm from FAMILY Start: 09/10/18 18:16 Freq: Q24H Status: Active Protocol: Document 09/10/18 18:16 JT (Rec: 09/10/18 18:17 JT [id number]) Advance Directive, confirm on record Time 18:17 Person contacted patient Copy received No Advanced directive available on record No CM Discharge Assessment Start: 09/11/18 14:00 Freq: Status: Active Protocol: Document 09/11/18 14:00 BF (Rec: 09/11/18 14:02 BF [id number]) Discharge Planning Assessment Assigned Paramedic Instructor ADAM Vargas Advance Directives? No History Provided By Patient Significant Other Medical Record Has Patient been admitted in last 30 No days? Prior Living Arrangements House Household Members spouse family Type of transporation used prior to Drives own vehicle admit Independent with ADL's Yes Is patient alert and oriented? Yes Caregiver for Another No DME Already Rented / Owned FWW / Walker Patient/Family Preference Home with Home Health Comment Pending CG and stair training with PT this afternoon Barriers to Discharge No Discharge Plan Home Community Services Physical Therapy Transportation Arrangement Spouse and MIL bedside and can provide transport home at d/c . Additional Comment Waiting for final PT recommendations. Whiteboard Updated in Patient Room with Yes name and ext. # of Paramedic Instructor Review Status In Process Please Provide Date Initial DC 09/11/18 Assessment Was Performed Next Review Type Continued Stay Review
--- NOTE | 2018-09-11 15:24 | PM.DS.1 ---
History of Present Illness Date Patient Seen: 09/10/18 Chief complaint: fall from a tree,lower back pain Narrative: Written by Mandi VERNON: The patient is a 63-year-old male who presented to the ED with lower back pain. Symptom onset is acute (1145 to 1200) and was preceded by a fall from a reported height of 7 ft. At time of the event patient was trying to caught branches from a rotten tree in his backyard. The saw got stuck within the branch and patient was waiting for his to hand him other tools to help dislodge the saw. At that time he saw the tree branch he was working on break off and fall toward him, he jumped off the ladder into the opposite direction. Reports landing flat on the ground. Do does not recall the position of his upper or lower extremities. Denies impact to the head or neck. Denies loss of consciousness. Noted presence of severe pain in his lower back immediately. He rolled onto his stomach for the following 10 minutes before getting up and walking back into the home. While walking noted shooting pain from lower back to the upper torso, neck, and left upper extremity. Once inside the house, he was able to sit upright in the chair; however, had difficulty getting up from the chair. At that point patient asked family to bring him to the hospital. He was able to walk to the car, but with difficulty, states he felt his left leg was giving out. Denies headache, neck pain, chest pain, pleurisy, shortness of breath, dizziness, lightheadedness, and nausea. He has not had any vomiting episodes. No hemoptysis. Denies paresthesia and weakness. No loss of bowel or bladder control. Experiencing pain predominantly in lower back at all times. Lumbar pain is severe and exacerbated with flexion at the hip, especially the left him. There is no paresthesia. No loss of bowel or bladder control. Imaging done in ED Cervical Spine CT - Post-surgical changes compatible C4-C7 ACDF are stable compared to 05/08/16. - No fractures or dislocations. - Visualized superior ribs are intact. No apical pneumothoraces. - Spine degenerative disc disease and facet arthropathy. - Prevertebral soft tissues are normal in thickness. No paravertebral hematomas. CT Thoracic Spine - Partially visualized fixation hardware in the lower cervical spine. Normal overall bony alignment. - No acute vertebral body compression fractures. - No suspicious sclerotic or lytic bony lesions. - Central spinal canal is of normal overall caliber. - Spine degenerative disc disease and facet arthropathy. Lumbar CT Spine Postsurgical changes compatible with L4-S1 posterior fusion at L4 and L5 laminectomies. Orthopedic hardware is intact. No lucency is identified at the bone hardware interface. There is trace L2-L3 retrolisthesis. There is mild L4-L5 anterolisthesis. Multilevel degenerative disc disease and facet arthropathy are noted. No acute vertebral body compression fractures. No suspicious lytic or blastic bony lesions. Central spinal caliber is of normal overall caliber. No pars defects. No retroperitoneal masses or hematomas. Visualized aorta is normal in caliber. 1.3 cm nonobstructing right renal stone. Partially visualized 3 mm nonobstructing left renal stone. Cholecystectomy clips. Discharge Providers Date of admission: 09/10/18 16:43 Discharge Date: 09/11/18 Consults: 09/10/18 14:48 Consult to Physical Therapy Evaluate & Treat Comment: fall, back pain, unable to sit/ambulate, no fx Physician Instructions: Evaluate and Treat 09/11/18 00:11 Consult to General Surgery Routine Comment: Consulting Provider: Francesco Steele Reason for consultation: s/p tramautic fall Has provider been notified: Yes Discharge provider: Jen De Anda DO Summary Discharge Diagnosis: 1. Acute fall from a height greater than 3 feet with acute spine pain, present on admission. Improving. 2. Hypertension, chronic, present on admission. Stable. 3. Diabetes mellitus type 2, non-insulin using, present on admission. Stable 4. Hyperlipidemia, chronic, present on admission. Stable. 5. BPH, chronic, present on admission. Stable. 6. Tobacco dependence, chronic, present on admission. Stable. Hospital Course: Kristian Yin is a 63-year-old male who presented to the ED with lower back pain after fall from tree at a reported height of 7 ft. 1. Acute fall from a height greater than 3 feet with acute spine pain, present on admission. Improving. -Patient was trimming a tree at home and chain saw came loose and fell 7 ft on to back/buttocks. -General surgery was consulted for trauma and evaluated patient in ED. No intervention necessary. -Total CK 78. Repeat 87. -Baseline EKG SR (v-rate 75); inferior GA, probably old. QT/QTc 336/364 -Continued pain control with and including: Tylenol 975 mg every 8 hours as needed for mild pain, cyclobenzaprine 10 mg every 8 hours as needed for muscle spasm, gabapentin 300 mg 3 times daily for neuropathic pain, tramadol 50 mg 4 times daily as needed for muscle spasm, lidocaine patch applied every 12 hours and removed for 12 hours. Received fentanyl patch 50 mcg x1 and is allowed to wear for next 72 hours. -Implemented TLSO brace. -Evaluated by physical therapy who recommended assist device with walker/cane and outpatient physical therapy. -Ordered incentive spirometry with goal use Q1H x10 while awake. 2. Hypertension, chronic, present on admission. Stable. -Continue amlodipine 10 mg daily and telmisartan 80 mg daily. Held hydrochlorothiazide. 3. Diabetes mellitus type 2, non-insulin using, present on admission. Stable -Held metformin. -Trend postprandial blood glucose twice daily not > 180 and did not need to place on correctional scale insulin. -Continued heart healthy/diabetic diet. 4. Hyperlipidemia, chronic, present on admission. Stable. -Continued simvastatin 20 mg daily. 5. BPH, chronic, present on admission. Stable. -Continued tamsulosin 0.4 mg daily. 6. Tobacco dependence, chronic, present on admission. Stable. -Discussed smoking and risks associated. Recommended smoking cessation indefinitely. -Offered nicotine patch as needed for nicotine withdrawal and patient declined. Status at Discharge Overall status at discharge: patient is progressing back to baseline Exam Vital Signs (past 8 hours): - 09/11/18 07:30 09/11/18 08:20 09/11/18 11:15 Temperature 98.6 F 98.5 F Pulse Rate 74 82 Respiratory Rate 16 16 Blood Pressure 161/86 H 122/62 Pulse Oximetry 98 97 98 Oxygen Delivery Method Room Air Oxygen Flow Rate 0 Narrative Exam Narrative: General: Older gentleman lying in bed and in no acute distress, appears older than stated age, well-developed, well-nourished, mildly anxious but appropriately interactive. HEENT: Normocephalic, atraumatic. External ears without defect. Pupils equal, round, and reactive to light. Anicteric sclerae, moist conjunctivae, and no lid lag. Neck: Supple with full range of motion. No lymphadenopathy or thyromegaly. Cardiovascular: Regular rate and rhythm without murmurs, rubs, or gallops appreciated. Pulmonary: Clear to auscultation bilaterally without crackles, wheezes, or rhonchi. Normal respiratory effort with no use of accessory muscles. Abdomen: Soft, bowel sounds present, nontender, nondistended. No hepatosplenomegaly or masses appreciated. Extremities: No clubbing, cyanosis, or edema. Skin: Normal temperature, turgor, and texture; no rash, ulcers, or subcutaneous nodules appreciated. Neurological: Cranial nerves grossly intact. Normal muscle strength, tone, and bulk. Reflexes, coordination, and sensory function within normal limits. Patient appears stff with antalgic gait. Psychiatric: Anxious mood and normal affect. Alert and oriented to person, place, and time. Objective Labs Result Diagrams: 09/11/18 08:25 09/11/18 08:25 Labs: Laboratory Results - last 24 hr 09/10/18 09/10/18 09/10/18 12:59 12:59 12:59 WBC 7.8 RBC 3.96 L Hgb 11.2 L Hct 34.5 L MCV 87.2 MCH 28.2 MCHC 32.3 RDW 15.8 H Plt Count 349 Neut % (Auto) 73.0 Lymph % (Auto) 18.4 L Coles % (Auto) 7.6 Eos % (Auto) 0.5 L Baso % (Auto) 0.5 Neut # (Auto) 5700 Lymph # (Auto) 1400 Coles # (Auto) 600 Eos # (Auto) 0 Baso # (Auto) 0 PT 11.2 INR 1.0 Sodium 139 Potassium 4.7 Chloride 107 Carbon Dioxide 21 L BUN 25 H Creatinine 1.10 Estimated GFR > 60.0 BUN/Creatinine Ratio 22.7 H Glucose 111 H Calcium 9.3 Total Bilirubin 0.6 AST 25 ALT 17 L Alkaline Phosphatase 133 H Total Creatine Kinase CK-MB (CK-2) CK-MB (CK-2) Rel Index Troponin I Total Protein 7.4 Albumin 4.3 Globulin 3.1 Albumin/Globulin Ratio 1.4 Urine Opiates Screen Ur Oxycodone Screen Urine Methadone Screen Ur Barbiturates Screen U Tricyclic Antidepress Ur Phencyclidine Scrn Ur Amphetamines Screen U Methamphetamines Scrn Ur MDMA Scrn (Ecstasy) U Benzodiazepines Scrn Urine Cocaine Screen U Marijuana (THC) Screen 09/10/18 09/10/18 09/11/18 12:59 22:38 08:25 WBC 6.8 RBC 3.60 L Hgb 10.3 L Hct 31.7 L MCV 87.8 MCH 28.5 MCHC 32.5 RDW 15.5 H Plt Count 264 Neut % (Auto) 74.3 Lymph % (Auto) 12.9 L Coles % (Auto) 11.7 Eos % (Auto) 0.7 L Baso % (Auto) 0.4 Neut # (Auto) 5100 Lymph # (Auto) 900 L Coles # (Auto) 800 Eos # (Auto) 0 Baso # (Auto) 0 PT INR Sodium Potassium Chloride Carbon Dioxide BUN Creatinine Estimated GFR BUN/Creatinine Ratio Glucose Calcium Total Bilirubin AST ALT Alkaline Phosphatase Total Creatine Kinase 78 87 CK-MB (CK-2) TNP CK-MB (CK-2) Rel Index TNP Troponin I < 0.012 Total Protein Albumin Globulin Albumin/Globulin Ratio Urine Opiates Screen Ur Oxycodone Screen Urine Methadone Screen Ur Barbiturates Screen U Tricyclic Antidepress Ur Phencyclidine Scrn Ur Amphetamines Screen U Methamphetamines Scrn Ur MDMA Scrn (Ecstasy) U Benzodiazepines Scrn Urine Cocaine Screen U Marijuana (THC) Screen 09/11/18 09/11/18 08:25 10:28 WBC RBC Hgb Hct MCV MCH MCHC RDW Plt Count Neut % (Auto) Lymph % (Auto) Coles % (Auto) Eos % (Auto) Baso % (Auto) Neut # (Auto) Lymph # (Auto) Coles # (Auto) Eos # (Auto) Baso # (Auto) PT INR Sodium 136 L Potassium 4.8 Chloride 104 Carbon Dioxide 23 BUN 30 H Creatinine 0.90 Estimated GFR > 60.0 BUN/Creatinine Ratio 33.3 H Glucose 121 H Calcium 8.4 Total Bilirubin AST ALT Alkaline Phosphatase Total Creatine Kinase CK-MB (CK-2) CK-MB (CK-2) Rel Index Troponin I Total Protein Albumin Globulin Albumin/Globulin Ratio Urine Opiates Screen Positive H Ur Oxycodone Screen Positive H Urine Methadone Screen Negative Ur Barbiturates Screen Negative U Tricyclic Antidepress Positive H Ur Phencyclidine Scrn Negative Ur Amphetamines Screen Negative U Methamphetamines Scrn Negative Ur MDMA Scrn (Ecstasy) Negative U Benzodiazepines Scrn Negative Urine Cocaine Screen Negative U Marijuana (THC) Screen Negative Discharge Plan Discharge Plan Patient Disposition: Home Discharge comment: You are being discharged home. Please follow-up with your PCP at the [facility] as soon as possible. Recommend referral to outpatient physical therapy. Your provided with a work excuse letter. You been prescribed tramadol 50 mg every 6 hours as needed for pain, cyclobenzaprine 10 mg every 8 hours as needed for muscle spasm, gabapentin 300 mg 3 times daily for neuropathic pain, lidocaine patch applied every 12 hours to an area and removed for 12 hours before re-applying again. You may use alternating Tylenol and ibuprofen as directed on bottle for pain. Please ice your back for the next 1-2 days then you may use ice and heat alternating for comfort. Discharge Med Rec/Prescriptions Prescriptions: New cyclobenzaprine 10 mg Tablet 10 mg PO Q8HR PRN (Reason: Spasms) Qty: 30 RF: 0 lidocaine 5 % Adhesive Patch,Medicated 1 ea topical DAILY Qty: 10 RF: 0 gabapentin [Neurontin] 300 mg Capsule 300 mg PO TID Qty: 90 RF: 0 prednisone 20 mg Tablet 40 mg PO DAILY Qty: 4 RF: 0 tramadol 50 mg Tablet 50 mg PO QID PRN (Reason: Pain, Severe (7-10)) Qty: 45 RF: 0 acetaminophen 325 mg Tablet 975 mg PO Q8H PRN (Reason: Pain (Scale Score 4-6)) Qty: 30 RF: 0 Continued metformin 500 mg tablet 500 mg PO BID RF: 0 tamsulosin 0.4 mg capsule 0.4 mg PO DAILY RF: 0 amlodipine 10 mg tablet 10 mg PO DAILY RF: 0 simvastatin 20 mg tablet 20 mg PO DAILY RF: 0 omeprazole 20 mg capsule,delayed release(DR/EC) 20 mg PO DAILY RF: 0 telmisartan-hydrochlorothiazid 80-25 mg tablet 1 tab PO DAILY RF: 0 multivitamin Tablet 1 tab PO DAILY RF: 0 aspirin 81 mg Tablet,Delayed Release (Dr/Ec) 81 mg PO DAILY RF: 0 Vitamin B-12 1 tab PO DAILY RF: 0 diphenhydramine-acetaminophen [Tylenol PM Extra Strength] 25-500 mg Tablet 2 tab PO BEDTIME PRN (Reason: Pain (Scale Score 1-3)) RF: 0 Provider Discharge Instructions Diet: Low-fat, Low-sodium and Low-cholesterol Activity: Activity as tolerated with walker/cane and outpatient physical therapy Visit Report/Discharge Packet Instructions: Stretching Exercises, DI for Trauma Discharge Data Attending Provider: Jen De Anda Admit Date/Time: 09/10/18 16:43 Discharges patient from system. Discharge Date/Time: 09/11/18 16:10 Quality VTE Deep Vein Thrombosis/Pulmonary Embolism Present on Admission: No
[2018-09-11 16:02] VITALS: BP 111/56; PULSE 70; RESP 16; TEMP 36.1; O2SAT 92
--- NOTE | 2018-09-11 16:11 | PC.NURSE ---
patient is A&O x4 pleasant and cooperative w/ staff. Discharge teaching done with patient, spouse, and other family member at bedside. Patient is in understanding of discharge instructions. Review of medications prescriptions provided and education on how to use medications. Discussed use of pain patches and when and to on and to remove. IV was d/c, no tele was present to remove. Patient was able to get dress on own w/ help of as he refused help from staff. VSS were stable and patient's belongings were taken down to personal vehicle by spouse. Patient was escorted via wheelchair by aid to ED entrance to meet spouse. Printer prescriptions were handed to spouse by this nurse. Patient left in stable condition, A&O x4.
== END 2018-09-11 16:10 | disposition home or self-care (01) ==
LOC: ED 16:41 → AC 16:44
PROVIDERS: Nurse Practitioner Gerontology; Admitting Provider Internal Medicine; Emergency Provider Internal Medicine; Visit Provider Internal Medicine
DX: M54.5 Low back pain (principal); W11.XXXA Fall on and from ladder, initial encounter; Y93.H2 Activity, gardening and landscaping; I10 Essential (primary) hypertension; E11.9 Type 2 diabetes mellitus without complications; F17.210 Nicotine dependence, cigarettes, uncomplicated; Z79.84 Long term (current) use of oral hypoglycemic drugs; E78.5 Hyperlipidemia, unspecified; N40.0 Benign prostatic hyperplasia without lower urinary tract symptoms
CPT/HCPCS: 36415; 36591; 72125; 72128; 72131; 73130; 80048; 80053; 80305; 81003; 82550; 82962; 84484; 85025; 85610; 93005; 94762; 96361; 96374; 96375; 96376; 97116; 97162; 97530; 99283; 99284; G0378; J1170; J1885; J2270; J2405

== ENCOUNTER 2018-09-18 05:21 | Emergency (ER) | payer OTHER, SELFPAY ==
[2018-09-10 18:09] VITALS: BMI 36.0
--- NOTE | 2018-09-18 05:27 | DI.CT.S_ITS ---
PROCEDURE: CT HEAD/BRAIN WO CON INDICATIONS: fall down stairs, possible head injury, severe neck pain TECHNIQUE: Noncontrast 4.5 mm thick angled axial sections acquired from the foramen magnum to the vertex, with coronal and sagittal reformats. For radiation dose reduction, the following was used: automated exposure control, adjustment of mA and/or kV according to patient size. COMPARISON: None. FINDINGS: Image quality: Diagnostic. CSF spaces: Basal cisterns are patent. No extra-axial fluid collections. Ventricles are normal in size and shape. Brain: No midline shift. No intracranial masses or hemorrhage. Diaz-white matter interface is normal. Skull and face: Calvarium and visualized facial bones are intact, without suspicious lesions. Subluxation of the bilateral temporomandibular joints is incidentally noted, which may be positional. Sinuses: Visualized sinuses and mastoids are clear. IMPRESSION: Negative head CT. No acute intracranial hemorrhage. Note: The preliminary [facility] report and the final report are concordant. Dictated by: Nando Hwang M.D. on 09/18/2018 at 7:44 Approved by: Nando Hwang M.D. on 09/18/2018 at 7:45
--- NOTE | 2018-09-18 05:28 | DI.CT.S_ITS ---
PROCEDURE: CT THORACIC SPINE WO CON INDICATIONS: severe midline thoracic pain after fall TECHNIQUE: Noncontrast 3 mm thick sections acquired through the region of interest in the thoracic spine. Sagittal and coronal reformats were then constructed. For radiation dose reduction, the following was used: automated exposure control. COMPARISON: None. FINDINGS: Image quality: Diagnostic. Bones: There is normal overall bony alignment. No acute vertebral body compression fractures. No suspicious sclerotic or lytic bony lesions. Central spinal canal is of normal overall caliber. Postoperative changes of the lower cervical spine are present. Mild to moderate multilevel degenerative changes of the thoracic spine are present demonstrating anterior disc osteophyte complexes spanning more than 4 levels, suggesting diffuse idiopathic skeletal hyperostosis. The intervertebral disc heights are relatively well-maintained. Soft tissues: No paravertebral masses or hematomas. Visualized posteromedial lungs appear clear. There is a small hiatal hernia. Aortic and coronary artery atherosclerosis is present. A punctate nonobstructing left renal calculus is noted. IMPRESSION: Moderate degenerative changes of the thoracic spine. No acute fractures. Note: The preliminary [facility] report and the final report are concordant. Dictated by: Nando Hwang M.D. on 09/18/2018 at 7:45 Approved by: Nando Hwang M.D. on 09/18/2018 at 7:53
--- NOTE | 2018-09-18 05:28 | DI.CT.S_ITS ---
PROCEDURE: CT LUMBAR SPINE WO CON INDICATIONS: severe midline pain after fall TECHNIQUE: Noncontrast 3 mm thick sections acquired from the T12 level to the sacrum. Sagittal and coronal reformats were constructed. For radiation dose reduction, the following was used: automated exposure control. COMPARISON: [facility], CT, CT LUMBAR SPINE WO CON, 09/10/2018, 12:55. FINDINGS: Image quality: Diagnostic. Bones: There is normal bony alignment. No acute vertebral body compression fractures. No suspicious lytic or blastic bony lesions. Central spinal caliber is of normal overall caliber. No pars defects. Postoperative changes are present related to an L4-S1 posterior lumbar fusion. Bilateral transpedicular screws are fixed in place by posterior fixation rods. The orthopedic hardware is intact. There may be slight lucency surrounding the screws at the L4 level. Grade 1 anterolisthesis of L4 on L5 is similar to the previous exam. Otherwise, the degree of degenerative changes of the lumbar spine have not significantly changed. Soft tissues: No retroperitoneal masses or hematomas. Visualized aorta is normal in caliber. A moderate-sized inferior right renal calculus is present. There is aortic atherosclerosis. The appendix is well-visualized and normal. Imaged bowel loops are nondilated. IMPRESSION: 1. No acute fracture of the lumbar spine. 2. Degenerative changes, alignment, and postoperative changes are similar to the previous exam. Note: The preliminary [facility] report and the final report are concordant. Dictated by: Nando Hwang M.D. on 09/18/2018 at 7:53 Approved by: Nando Hwang M.D. on 09/18/2018 at 8:00
--- NOTE | 2018-09-18 05:28 | DI.CT.S_ITS ---
PROCEDURE: CT CERVICAL SPINE WO CON INDICATIONS: severe midline pain after fall TECHNIQUE: Noncontrast 3 mm thick sections acquired from the skull base to the T4 level. Sagittal and coronal reformats were then constructed. For radiation dose reduction, the following was used: automated exposure control, adjustment of mA and/or kV according to patient size. COMPARISON: [facility], CT, CT CERVICAL SPINE WO CON, 09/10/2018, 12:55. FINDINGS: Image quality: Diagnostic. Bones: The craniocervical and atlantoaxial, and cervicothoracic junctions are adequately visualized and the alignment through these regions are well-maintained. The vertebral body heights throughout the cervical spine are well-maintained. There is no acute fracture or dislocation. The odontoid is intact. No suspicious osseous lesions are identified. Postsurgical changes are present related to a C4-C7 anterior cervical discectomy and fusion. The orthopedic hardware appears intact. There is slight lucency surrounding the vertebral body screws at the C4 level. Mild to moderate degenerative changes of the cervical spine are present. An ossific/calcific densities within the posterior cervical soft tissues and related to previous ligamentous or bony injury. Soft tissues: Prevertebral soft tissues are normal in thickness. No paravertebral hematomas. No apical pneumothoraces. Carotid artery atherosclerosis is present. IMPRESSION: 1. No acute fracture of the cervical spine. 2. Mild to moderate degenerative changes of the cervical spine. 3. Status post C4-C7 cervical fusion. Note: The preliminary [facility] report and the final report are concordant. Dictated by: Nando Hwang M.D. on 09/18/2018 at 8:01 Approved by: Nando Hwang M.D. on 09/18/2018 at 8:18
[2018-09-18 05:29] VITALS: BP 91/61; PULSE 100; RESP 16; TEMP 36.9; O2SAT 93; BMI 32.3
--- NOTE | 2018-09-18 05:34 | PC.NURSE ---
S/p fall from standing position tonight. Seeing last week for 6ft Trauma fall. Pt states back pain worsen after fall tonight. 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 C-collar in place. Will continue to monitor.
--- NOTE | 2018-09-18 05:57 | ED_ITS ---
HPI - Back Pain/Injury General Chief Complaint: Back Pain/Injury Stated Complaint: back and neck pain Time Seen by Provider: 09/18/18 05:21 Source: patient and EMS Mode of arrival: EMS Limitations: no limitations History of Present Illness HPI Narrative: 63-year-old male with history of hypertension and multiple back injuries presents by EMS for evaluation of neck and back pain after a fall just prior to his arrival. The patient was recently admitted into the hospital for pain control of back injury suffered when he was trying to trim a tree in his yd in the fell from approximately 7 ft. He had imaging of his entire bony spine which showed no fracture. His pain was very difficult to control, he admitted to some numbness and tingling in his left arm. He has been at home with significant number of pain medications and using a walker and this morning he tripped and fell down approximately 3 stairs. He is not dizzy nor weak or lightheaded. He denies any chest pain or shortness of breath. He denies any loss of consciousness and does not think he hit his head but might have. He does not take any blood thinners. He has significant midline pain of the cervical and thoracic spine and arrives by EMS with a cervical collar in place. He had been given morphine prior to arrival with minimal relief MD Complaint: back pain, back injury and fall Onset (ago): hour(s) Duration: constant Similar Symptoms Previously: Yes Location: lumbar spine and thoracic spine Severity: severe Quality: sharp Relieving factors: immobilization Exacerbating factors: movement Context: fall Associated symptoms: denies other symptoms Related Data Home Medications Medication Instructions Recorded Confirmed Vitamin B-12 1 tab PO DAILY 09/10/18 09/10/18 amlodipine 10 mg PO DAILY 09/10/18 09/10/18 aspirin 81 mg PO DAILY 09/10/18 09/10/18 diphenhydramine-acetaminophen 2 tab PO BEDTIME PRN 09/10/18 09/10/18 [Tylenol PM Extra Strength] metformin 500 mg PO BID 09/10/18 09/10/18 multivitamin 1 tab PO DAILY 09/10/18 09/10/18 omeprazole 20 mg PO DAILY 09/10/18 09/10/18 simvastatin 20 mg PO DAILY 09/10/18 09/10/18 tamsulosin 0.4 mg PO DAILY 09/10/18 09/10/18 telmisartan-hydrochlorothiazid 1 tab PO DAILY 09/10/18 09/10/18 Previous Rx's Medication Instructions Recorded acetaminophen 975 mg PO Q8H PRN #30 tab 09/11/18 cyclobenzaprine 10 mg PO Q8HR PRN #30 tab 09/11/18 gabapentin [Neurontin] 300 mg PO TID #90 cap 09/11/18 lidocaine 1 ea TOPICAL DAILY #10 patch 09/11/18 prednisone 40 mg PO DAILY #4 tab 09/11/18 tramadol 50 mg PO QID PRN #45 tab 09/11/18 Allergies Allergy/AdvReac Type Severity Reaction Status Date / Time NSAIDS (Non-Steroidal AdvReac Mild CAN TAKE, Verified 09/10/18 12:54 Anti-Inflamma BUT TRIES [NSAIDS (NON-STEROIDAL TO AVOID ANTI-INFLAMMA] R/T GASTRIC BYPASS Review of Systems Constitutional Denies chills, Denies fever(s), Denies lethargy and Denies weakness Eyes Denies change in vision, Denies eye discharge, Denies irritation and Denies loss of vision ENT Ears, Nose, Mouth, and Throat: Denies change in voice, Reports neck pain and Denies sore throat Cardiovascular Denies chest pain, Denies irregular heart rhythm, Denies lightheadedness, Denies palpitations, Denies dyspnea, Denies dyspnea on exertion and Denies orthopnea Respiratory Denies cough, Denies dyspnea, Denies dyspnea on exertion and Denies wheezing Gastrointestinal Gastrointestinal: Denies abdominal pain, Denies change in bowel habits, Denies diarrhea, Denies nausea and Denies vomiting Genitourinary Denies hematuria, Denies flank pain, Denies urinary incontinence and Denies urinary urgency Musculoskeletal Reports back pain and Reports neck pain Integumentary/Breasts Denies pruritus, Denies erythema, Denies rash and Denies wounds Neurologic Denies confusion, Denies loss of vision and Denies weakness Psychiatric Denies anxiety, Denies confusion, Denies depression, Denies homicidal ideation and Denies suicidal ideation Endocrine Denies palpitations Hematologic/Lymphatic Denies easy bruising Allergic/Immunologic Denies wheezing [facility] Medical History Degenerative disc disease (Chronic) HTN (hypertension) (Chronic) Hypertriglyceridemia (Chronic) 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) History of bleeding ulcers (Resolved) Nephrolithiasis (Resolved) Surgical History History of cervical spinal surgery (Resolved) Status post lumbar surgery (Resolved) History of cholecystectomy (Resolved) History of gastric bypass (Resolved) Family History (Updated 09/11/18 @ 05:49 by JANEEN Berrios) Mother No known health problems Father No known health problems Social History household members: spouse and family Smoking Status: Current every day smoker Family History Mother No known health problems Father No known health problems Social History household members: spouse and family Smoking Status: Current every day smoker Exam Narrative Exam Narrative: GENERAL: 63-year-old male appears stated age, obviously in significant pain with any motion. Cervical collar in place. GCS 15 HEAD: Atraumatic. Normocephalic. No temporal or scalp tenderness. EYES: Pupils equal round and reactive. Extraocular motions intact. No scleral icterus. No injection or drainage. ENT: Nose without bleeding, purulent drainage or septal hematoma. Throat without erythema, tonsillar hypertrophy or exudate. Uvula midline. Airway patent. NECK: Trachea midline. No JVD or lymphadenopathy. Midline tenderness to palpation without any step-offs or obvious deformity CARDIOVASCULAR: Regular rate and rhythm without murmurs, gallops, or rubs. RESPIRATORY: Clear to auscultation. Breath sounds equal bilaterally. No wheezes, rales, or rhonchi. GASTROINTESTINAL: Abdomen soft, non-tender, nondistended. No hepato- splenomegaly, or palpable masses. No guarding. EXTREMITIES: No clubbing, cyanosis, or edema. No joint tenderness, effusion, or edema noted. BACK: Midline thoracic and lumbar tenderness to palpation without step-off, deformity or ecchymosis NEURO: AOx3. SKIN: No rash or erythema. Initial Vital Signs Initial Vital Signs: Vital Signs Temperature 98.4 F 09/18/18 05:29 Pulse Rate 100 H 09/18/18 05:29 Respiratory Rate 16 09/18/18 05:29 Blood Pressure 91/61 09/18/18 05:29 Pulse Oximetry 93 09/18/18 05:29 Course Orders Ordered: Discontinued Medications Hydromorphone HCl (Dilaudid) 1 mg IV NOW ONE Stop: 09/18/18 06:57 Last Admin: 09/18/18 07:05 Dose: 1 mg Hydromorphone HCl (Dilaudid) 1 mg IV NOW ONE Stop: 09/18/18 07:34 Last Admin: 09/18/18 07:40 Dose: 1 mg Vital Signs - 8 hr 09/18/18 05:29 Temperature 98.4 F Pulse Rate 100 H Respiratory Rate 16 Blood Pressure 91/61 Pulse Oximetry 93 Discharge Plan Departure Patient Disposition: Home Clinical Impression: Fall with injury Qualifiers: Encounter type: initial encounter Qualified Code(s): W19.XXXA - Unspecified fall, initial encounter Cervical strain, acute Qualifiers: Encounter type: initial encounter Qualified Code(s): S16.1XXA - Strain of muscle, fascia and tendon at neck level, initial encounter Discharge Date/Time: 09/18/18 08:04 Interventions: ED Discharge Assessment Last Done: 09/18/18 08:03 Instructions: DI for Back Strain or Sprain Activity Restrictions/Additional Instructions: *You have been diagnosed with [ Acute Cervical Strain, Thoracic Strain ] *What to do: *Continue to take medications as directed *Follow up with your primary care provider in 2-3 days, call for an appointment. Let them know you were seen in the Emergency Department and that we ask that you be seen in follow up *Return to ER if you should have any new, worsening or concerning symptoms Prescriptions: No Action metformin 500 mg tablet 500 mg PO BID RF: 0 tamsulosin 0.4 mg capsule 0.4 mg PO DAILY RF: 0 amlodipine 10 mg tablet 10 mg PO DAILY RF: 0 simvastatin 20 mg tablet 20 mg PO DAILY RF: 0 omeprazole 20 mg capsule,delayed release(DR/EC) 20 mg PO DAILY RF: 0 telmisartan-hydrochlorothiazid 80-25 mg tablet 1 tab PO DAILY RF: 0 multivitamin Tablet 1 tab PO DAILY RF: 0 aspirin 81 mg Tablet,Delayed Release (Dr/Ec) 81 mg PO DAILY RF: 0 Vitamin B-12 1 tab PO DAILY RF: 0 diphenhydramine-acetaminophen [Tylenol PM Extra Strength] 25-500 mg Tablet 2 tab PO BEDTIME PRN (Reason: Pain (Scale Score 1-3)) RF: 0 cyclobenzaprine 10 mg Tablet 10 mg PO Q8HR PRN (Reason: Spasms) Qty: 30 RF: 0 lidocaine 5 % Adhesive Patch,Medicated 1 ea topical DAILY Qty: 10 RF: 0 gabapentin [Neurontin] 300 mg Capsule 300 mg PO TID Qty: 90 RF: 0 prednisone 20 mg Tablet 40 mg PO DAILY Qty: 4 RF: 0 tramadol 50 mg Tablet 50 mg PO QID PRN (Reason: Pain, Severe (7-10)) Qty: 45 RF: 0 acetaminophen 325 mg Tablet 975 mg PO Q8H PRN (Reason: Pain (Scale Score 4-6)) Qty: 30 RF: 0
[2018-09-18] MEDS: HYDROMORPHONE 1 MG INJ IV ×2 (07:05→07:40)
[2018-09-18 07:26] VITALS: BP 110/66; PULSE 95; RESP 16; O2SAT 98
[2018-09-18 08:03] VITALS: BP 134/60; PULSE 103; RESP 20; O2SAT 99
== END 2018-09-18 08:04 | disposition home or self-care (01) ==
PROVIDERS: Emergency Provider Emergency Medicine
DX: S16.1XXA Strain of muscle, fascia and tendon at neck level, initial encounter (principal); S09.90XA Unspecified injury of head, initial encounter; M54.5 Low back pain; M54.6 Pain in thoracic spine; W10.8XXA Fall (on) (from) other stairs and steps, initial encounter
CPT/HCPCS: 70450; 72125; 72128; 72131; 96374; 96375; 99283; 99284; J1170

== ENCOUNTER 2019-04-26 08:12 | Day surgery (SDC) | payer MEDICARE, OTHER, SELFPAY ==
[2018-09-10 18:09] VITALS: BMI 36.0
[2019-04-26 09:02] VITALS: BMI 31.3
[2019-04-26 09:10] VITALS: BP 148/87; PULSE 83; RESP 16; TEMP 37.1; O2SAT 98
[2019-04-26] MEDS: SODIUM CHLORIDE 0.9% 1,000 ML 200 ML IV (09:27)
--- NOTE | 2019-04-26 10:41 | PM.HP.1 ---
History of Present Illness History of Present Illness Date Patient Seen: 04/26/19 Time Patient Seen: 10:41 Chief complaint: [id number] SCREENING COLONOSCOPY Narrative: The patient is a gentleman whose last colonoscopy was 6 years ago. He has had polyps removed in the past. He is here for screening exam. He has not seen any blood recently. 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) Surgical History History of cervical spinal surgery (Resolved) History of cholecystectomy (Resolved) History of gastric bypass (Resolved) Status post lumbar surgery (Resolved) Family & Social History Family History Mother No known health problems Father No known health problems Social History: household members spouse,family Tobacco & Substance use: Tobacco type cigarettes Smoking Status Current every day smoker Smoking packs per day 0.5 alcohol intake current alcohol intake frequency 0-2 drinks per day Substance Use Type does not use Meds Home Medications and Allergies Home Medications Medication Instructions Recorded Confirmed Type amlodipine 10 mg PO DAILY 09/10/18 04/26/19 History aspirin 81 mg PO DAILY 09/10/18 04/26/19 History cyanocobalamin (vitamin B-12) 1,000 mcg PO DAILY #0 09/10/18 04/26/19 History [Vitamin B-12] diphenhydramine-acetaminophen 2 tab PO BEDTIME PRN 09/10/18 04/26/19 History [Tylenol PM Extra Strength] metformin 500 mg PO BID 09/10/18 04/26/19 History multivitamin 1 tab PO DAILY 09/10/18 04/26/19 History omeprazole 20 mg PO DAILY 09/10/18 04/26/19 History simvastatin 20 mg PO DAILY 09/10/18 04/26/19 History tamsulosin 0.8 mg PO DAILY 09/10/18 04/26/19 History telmisartan-hydrochlorothiazid 1 tab PO DAILY 09/10/18 04/26/19 History acetaminophen 975 mg PO Q8H PRN #30 tab 09/11/18 04/26/19 Rx lidocaine 1 ea TOPICAL DAILY #10 patch 09/11/18 04/26/19 Rx duloxetine 30 mg PO DAILY 04/26/19 04/26/19 History Allergies Allergy/AdvReac Type Severity Reaction Status Date / Time NSAIDS (Non-Steroidal AdvReac Mild CAN TAKE, Verified 04/26/19 08:55 Anti-Inflamma BUT TRIES [NSAIDS (NON-STEROIDAL TO AVOID ANTI-INFLAMMA] R/T GASTRIC BYPASS Review of Systems Review of Systems ROS: Yes All systems reviewed with the patient and are negative except as otherwise documented Cardiovascular Comments: Patient has a history of a mild heart attack years ago. He had a coronary angiogram performed that showed minor disease per his history. He has not had symptoms in the last 10 years. Gastrointestinal Comments: The patient has had gastric bypass x2. His 1st was successful for several years and then apparently he had a problem that resulted in revision. He has known hernias from this operation and has been told if they do not bother him do not do anything about them. He has also had his gallbladder removed in the past. Genitourinary Comments: History of kidney stones Exam Vital Signs (past 8 hours): - 04/26/19 09:10 Temperature 98.7 F Pulse Rate 83 Respiratory Rate 16 Blood Pressure 148/87 H Pulse Oximetry 98 Oxygen Delivery Method Room Air Narrative Exam Narrative: Pleasant cooperative patient no apparent distress. Lungs are clear to auscultation. No rales or rhonchi. Heart regular rate and rhythm no murmur gallop. Abdomen is soft nontender without mass. The patient has an upper midline incision with multiple palpable defects. He has nevi in his umbilicus.. Patient is alert and oriented x3. Assessment & Plan Assessment & Plan narrative: The patient for a screening colonoscopy. I have discussed the procedure with them. Risks of bleeding, perforation which would necessitate major operation, failure to find remove all lesions, the potential tattoo were all discussed. All questions were answered. They wished to proceed.
--- NOTE | 2019-04-26 10:44 | PM.PREOP ---
Pre-operative Note Interval Note History & Physical reviewed/Exam performed by Physician: Yes Changes to H&P: No ASA Class (for procedural sedation): III
--- NOTE | 2019-04-26 11:17 | PM.OP.ENDO ---
Operative Date/Time/Diagnoses Date of procedure: 04/26/19 Time of procedure: 11:17 Pre-op diagnosis: Screening. History of polyps. Last exam 6 years ago. Post-op diagnosis: same (Diverticulosis sigmoid colon) Procedure & Clinicians Study performed: Colonoscopy Same procedure as scheduled: Yes Indications: Screening Surgeon: Yaw Schroeder Procedure Notes SCOAP/Timeout: Performed Procedure in detail: The patient was placed in the left lateral decubitus position and underwent IV sedation directed by the surgeon consisting of fentanyl and Versed. Digital exam was unremarkable except for an enlarged prostate. The scope was inserted and advanced through the rectum into the sigmoid, descending, transverse, and ascending colon. Patient was noted to have sigmoid diverticulosis. Pressure was applied a stiffener inserted in order to make our way into the cecum.. The cecum was reached identified by the ileocecal valve and the appendiceal opening. The ileocecal valve was successfully cannulated. The terminal ileum was normal in appearance. The scope was gradually brought out. No Polyps were found. The scope ultimately was retroflexed in the rectum. The appearance was remarkable for scarring on hemorrhoids but otherwise normal. The scope was removed and the patient tolerated the procedure well. Prep was good. Scope withdrawal time: 8 minutes Sedation minutes: 28 Findings: diverticulosis Specimen(s): none sent Complications: none Post-procedure Recommendations: Colonscopy in 5 years (Due to history of polyps) Follow up: as needed Disposition: PACU
[2019-04-26] MEDS: fentaNYL 250 MCG/5 ML INJ IV (11:19)
[2019-04-26] MEDS: MIDAZOLAM 5 MG/5 ML VIAL IV (11:20)
[2019-04-26 11:22] VITALS: BP 115/77; PULSE 89; RESP 18; TEMP 36.5; O2SAT 97
[2019-04-26 11:25] VITALS: BP 102/67; PULSE 93; RESP 12; O2SAT 97
--- NOTE | 2019-04-26 11:25 | SUR.PHASEI ---
Patient awake, alert and oriented. Tolerating po. Denies nausea and pain.
[2019-04-26 11:32] VITALS: BP 113/74; PULSE 89; RESP 14; TEMP 36.5; O2SAT 98
== END 2019-04-26 12:00 | disposition home or self-care (01) ==
PROVIDERS: PCP Physician Assistant Medical; Referring Provider Physician Assistant Medical; Visit Provider Specialist
PROC: 0DJD8ZZ Inspection of Lower Intestinal Tract, Via Natural or Artificial Opening Endoscopic (ICD-10-PCS; CPT 45378; principal; 2019-04-26 09:45)
DX: Z12.11 Encounter for screening for malignant neoplasm of colon (principal); Z86.010 Personal history of colon polyps; K57.30 Diverticulosis of large intestine without perforation or abscess without bleeding
CPT/HCPCS: G0105; 99152; 99153; J2250; J3010

== ENCOUNTER → 2020-03-23 13:44 | Outpatient (CLI) | payer MEDICARE, OTHER, SELFPAY ==
[2018-09-10 18:09] VITALS: BMI 36.0
--- NOTE | 2020-03-23 | DI.CT.S_ITS ---
PROCEDURE: CT LUMBAR SPINE WO CON INDICATIONS: Spinal stenosis, lumbar region without neurogenic TECHNIQUE: Noncontrast 3 mm thick sections acquired from the T12 level to the sacrum. Sagittal and coronal reformats were constructed. For radiation dose reduction, the following was used: automated exposure control. COMPARISON: [facility], MR, MR LUMBAR SPINE WITH/WITHOUT CONTRAST, 01/23/2020, 21:09. [facility], CT, CT THORACIC SPINE WO CON, 09/18/2018, 5:35. [facility], CT, CT LUMBAR SPINE WO CON, 09/10/2018, 12:55. [facility], CT, CT ABDOMEN PELVIS WITH CONTRAST, 02/12/2020, 21:03. [facility], CT, CT LUMBAR SPINE WO CON, 09/18/2018, 5:35. FINDINGS: Image quality: There is artifact associated with the metallic hardware. Bones: Postoperative changes are seen, with bilateral pedicle screws at the L4, L5, and S1 levels. The screws appear well placed. Vertical fixation rods are seen. Lucency seen adjacent to the L4 screws, right worse than left and there is mild lucency seen adjacent to the right L5 screw. There has been removal of portions of the posterior elements. Bone grafting material is noted. No acute appearing fractures are seen. No suspicious lytic or blastic lesions can be seen. There is minimal retrolisthesis at L1-L2, with mild retrolisthesis at L2-L3. Mild anterolisthesis is seen at L4-L5. T11-T12: Moderate loss of disc height is seen. Bridging endplate osteophytes are seen on both sides. No significant neural foraminal or central canal narrowing can be seen. T12-L1: Unremarkable appearance. L1-L2: The disc height is relatively well preserved. Moderate disc bulge is seen. Moderate bilateral neural foraminal narrowing is seen. Mild central canal narrowing is seen. L2-L3: Mlhg-cy-[id number] loss of disc height is seen. Vacuum disc phenomenon is seen at this level. Moderate disc bulge is seen, with a central disc protrusion. Moderate facet joint hypertrophy is seen. Moderate to severe bilateral neural foraminal narrowing is seen at this level. Severe central canal narrowing is also seen. L3-L4: There is mild loss of disc height. Vacuum disc phenomenon is seen at this level. Moderate to prominent disc bulge is seen, with a central disc protrusion. There is moderate right-sided and moderate to severe left-sided facet hypertrophy seen. Moderate to severe bilateral neural foraminal narrowing is seen. Severe central canal narrowing is seen. L4-L5: Postoperative changes are seen at this level. Moderate disc bulge is seen, with a central disc protrusion. There is moderate to severe bilateral neural foraminal narrowing seen. No significant central canal narrowing is seen at this level. L5-S1: The disc height is well preserved. Mild generalized disc bulge is seen. There is moderate left-sided and [id number]-[id number] right-sided neural foraminal narrowing seen. No significant central canal narrowing is seen. Soft tissues: No retroperitoneal masses or hematomas. Visualized aorta is normal in caliber. Atherosclerotic calcification is noted. Bariatric surgery can be seen. Cholecystectomy clips are seen. 5 within the right kidney, there is a nonobstructing stone seen that measures up to 12 mm. Tiny nonobstructing stones measuring up to 2 mm can be seen within the left kidney. Colonic diverticulosis is seen, without findings of active diverticulitis. IMPRESSION: Lumbosacral fixation hardware, with lucency seen adjacent to the bilateral L4 screws and the right L5 screw, which is consistent with loosening. Multiple levels of lumbar spine degenerative change are seen, which are similar to the recent prior MRI examination. Incidental note is made of: Bariatric surgery Cholecystectomy Nonobstructing kidney stones, right larger than left Diverticulosis, without active diverticulitis Dictated by: Spenser Chowdhury M.D. on 03/23/2020 at 15:16 Approved by: Spenser Chowdhury M.D. on 03/23/2020 at 15:23
== END ==
PROVIDERS: PCP Physician Assistant Medical; Referring Provider Dentist Orthodontics and Dentofacial Orthopedics; Visit Provider Neurological Surgery
DX: M48.061 Spinal stenosis, lumbar region without neurogenic claudication (principal); M47.816 Spondylosis without myelopathy or radiculopathy, lumbar region; N20.0 Calculus of kidney; K57.90 Diverticulosis of intestine, part unspecified, without perforation or abscess without bleeding; Z98.84 Bariatric surgery status; Z90.49 Acquired absence of other specified parts of digestive tract
CPT/HCPCS: 72131

== ENCOUNTER 2020-12-18 10:58 | Observation (INO) | payer MEDICARE, OTHER, SELFPAY ==
[2018-09-10 18:09] VITALS: BMI 36.0
[2020-12-18] VITALS (30 sets, daily range): BP systolic 105–152; BP diastolic 57–82; PULSE 62–94; RESP 14–35; TEMP 36.1–36.7; O2SAT 97–100; BMI 29.0; BMI 28.0
--- NOTE | 2020-12-18 11:04 | DI.RAD.S_ITS ---
PROCEDURE: XR CHEST 1V INDICATIONS: chest pain TECHNIQUE: One view of the chest was acquired. COMPARISON: None. FINDINGS: Surgical changes and devices: Cervical fusion plate is present. Lungs and pleura: Lungs are clear. No pleural effusions or pneumothorax. Mediastinum: Mediastinal contours appear normal. Heart size is normal. Bones and chest wall: No suspicious bony lesions. Overlying soft tissues appear unremarkable. IMPRESSION: No acute pulmonary process. Dictated by: Brenda Crabtree M.D. on 12/18/2020 at 11:32 Approved by: Brenda Crabtree M.D. on 12/18/2020 at 11:33
[2020-12-18 11:22] LABS: Add Manual Diff / Slide Review NO; Basophils Absolute Auto 0 /uL (0-100); Basophils Percent Auto 0.4 % (0-2); Eosinophils Absolute Auto 0 /uL (0-450); Eosinophils Percent Auto 0.3 % (2-4); Hematocrit 41.9 % (41-53); Lymphocytes Absolute Auto 1800 /uL (1100-4500); Lymphocytes Percent Auto 21.6 % (25-40); Mean Corpuscular HGB Conc 33.4 % (30-36); Mean Corpuscular Hemoglobin 31.6 PG (26-34); Mean Corpuscular Volume 94.6 fL (80-100); Monocytes Absolute Auto 600 /uL (0-900); Monocytes Percent Auto 7.5 % (3-14); Neutrophils Absolute Auto 5800 /uL (1500-7000); Neutrophils Percent Auto 70.2 % (50-75); Platelet Count 325 X10^3/uL (150-400); Red Blood Cell Count 4.43 X10^6/uL (4.5-5.9); Red Cell Distribution Width 16.6 % (11.6-14.8); White Blood Cell Count 8.2 X10^3/uL (4.5-11.0)
[2020-12-18 11:29] LABS: INR 1.1 (0.9-1.3); Prothrombin Time 12.5 SECONDS (10.1-12.7)
[2020-12-18 11:31] LABS: PTT Partial Thromboplastin Tim 30 SECONDS (26.4-36.2)
[2020-12-18] MEDS: SODIUM CHLORIDE 0.9% 1,000 ML 150 ML IV (11:38)
--- NOTE | 2020-12-18 11:48 | ED_ITS ---
HPI - Chest Pain General Chief Complaint: Chest Pain Stated Complaint: Chest pain Time Seen by Provider: 12/18/20 10:58 Source: patient and EMS Mode of arrival: EMS Limitations: no limitations History of Present Illness HPI narrative: 65M daily smoker with history of coronary artery disease, history of hypertension presents by EMS for evaluation of chest pain and pressure that started suddenly while at rest earlier today. 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 He states that it seems to be worse when he takes a big deep breath. He denies any radiation of his pain. Yesterday he was in his normal state of health. He does state that he had a heart attack years ago and had and angio which did not demonstrate the need for a stent. He denies any history of cancer or blood clot. Related Data Home Medications Medication Instructions Recorded Confirmed amlodipine 10 mg tablet 10 mg PO DAILY 09/10/18 04/26/19 aspirin 81 mg tablet,delayed 81 mg PO DAILY 09/10/18 04/26/19 release cyanocobalamin (vitamin B-12) 1,000 mcg PO DAILY #0 09/10/18 04/26/19 1,000 mcg tablet (Vitamin B-12) diphenhydramine 25 2 tab PO BEDTIME PRN 09/10/18 04/26/19 mg-acetaminophen 500 mg tablet (Tylenol PM Extra Strength) metformin 500 mg tablet 500 mg PO BID 09/10/18 04/26/19 multivitamin 1 tab PO DAILY 09/10/18 04/26/19 omeprazole 20 mg capsule,delayed 20 mg PO DAILY 09/10/18 04/26/19 release simvastatin 20 mg tablet 20 mg PO DAILY 09/10/18 04/26/19 tamsulosin 0.4 mg capsule 0.8 mg PO DAILY 09/10/18 04/26/19 telmisartan 80 1 tab PO DAILY 09/10/18 04/26/19 mg-hydrochlorothiazide 25 mg tablet duloxetine 30 mg capsule,delayed 30 mg PO DAILY 04/26/19 04/26/19 release Previous Rx's Medication Instructions Recorded acetaminophen 325 mg tablet 975 mg PO Q8H PRN #30 tab 09/11/18 lidocaine 5 % topical patch 1 ea TOPICAL DAILY #10 patch 09/11/18 Allergies Allergy/AdvReac Type Severity Reaction Status Date / Time NSAIDS (Non-Steroidal AdvReac Mild CAN TAKE, Verified 04/26/19 08:55 Anti-Inflamma BUT TRIES [NSAIDS (NON-STEROIDAL TO AVOID ANTI-INFLAMMA] R/T GASTRIC BYPASS Review of Systems Review of Systems Narrative: GENERAL: Denies chills, fatigue, malaise, fever, sweats. HEENT: Denies sinus pain, ear pain, sore throat, difficulty swallowing, dizziness. RESPIRATORY: Denies dyspnea, cough, wheezing, hemoptysis, sputum. CARDIOVASCULAR: See HPI GASTROINTESTINAL: Denies nausea, vomiting, abdominal pain, diarrhea, constipation, melena. : Denies dysuria, frequency, incontinence, hematuria, urinary retention. MUSCULOSKELETAL: denies weakness, joint pain, or bony pain SKIN: Denies rash, skin lesions, or other NEUROLOGIC: Denies weakness, headache, numbness, change in speech, confusion, seizures, incoordination. PSYCHIATRIC: No concerning psychosocial issues. 12 point review of systems is negative except for those stated above Patient History Medical History Degenerative disc disease History of bleeding ulcers HNP (herniated nucleus pulposus), lumbar HTN (hypertension) Hypertriglyceridemia Nephrolithiasis Non-insulin dependent type 2 diabetes mellitus Surgical History History of cervical spinal surgery History of cholecystectomy History of gastric bypass Status post lumbar surgery Family History Mother No known health problems Father No known health problems Social History household members: spouse and family Smoking Status: Current every day smoker alcohol intake: current Smoking Status: Current every day smoker tobacco type: cigarettes alcohol intake frequency: other Substance Use Type: does not use Exam Narrative Exam Narrative: GENERAL: [65] year old patient appears stated age. Well- developed patient, in mild distress. Anxious HEAD: Atraumatic. Normocephalic. EYES: Pupils equal round and reactive. Extraocular motions intact. No scleral icterus. No injection or drainage. ENT: Nose without bleeding, purulent drainage. Throat without erythema, tonsillar hypertrophy or exudate. Airway patent. NECK: Trachea midline. Non tender CARDIOVASCULAR: Regular rate and rhythm without murmurs, gallops, or rubs. Reproducible to palpation RESPIRATORY: Clear to auscultation. Breath sounds equal bilaterally. No wheezes, rales, or rhonchi. GASTROINTESTINAL: Abdomen soft, non-tender, nondistended. EXTREMITIES: No edema or joint tenderness. BACK: Nontender without deformity or crepitance. No flank tenderness. NEURO: AOx3. SKIN: No rash or erythema of visible areas Initial Vital Signs Initial Vital Signs: Vital Signs Pulse Rate 75 12/18/20 11:02 Respiratory Rate 35 H 12/18/20 11:02 Blood Pressure 119/64 12/18/20 11:02 Scores HEART Score Heart Score history: Moderately Suspicious Heart Score EKG: Normal Heart Score Age: > or = 65 years old Heart Score risk factors: 1-2 risk factors Heart Score troponin: < or = to normal limit Heart Score Total: 4 Course Orders Ordered: ED Orders 12/18/20 11:04 XR chest 1V Stat EKG-12 Lead Stat 12/18/20 11:15 C-Reactive Protein Quant Stat Complete Blood Count AUTO DIFF Stat Comprehensive Metabolic Panel Stat Erythrocyte Sedimentation Rate Stat Lipase Stat NT-proBNP (BNP-Adult 18+) Stat Partial Thromboplastin Time Stat Prothrombin Time INR Stat Troponin & CK Cardiac Panel Stat 12/18/20 11:58 EKG-12 Lead Stat 12/18/20 12:24 D Dimer Stat 12/18/20 13:20 Troponin I Stat Sodium Chloride (Normal Saline 0.9%) 1,000 mls @ 150 mls/hr IV CONT DEANNE Last Admin: 12/18/20 11:38 Dose: 150 mls/hr Documented by: DALIA Discontinued Medications Aspirin (Aspirin 81 Mg Chew Tab) 324 mg PO NOW ONE Stop: 12/18/20 11:05 Last Admin: 12/18/20 11:38 Dose: Not Given Documented by: DALIA Ketorolac Tromethamine (Ketorolac 30 Mg/Ml Vial) 15 mg IV NOW ONE Stop: 12/18/20 14:09 Last Admin: 12/18/20 14:24 Dose: 15 mg Documented by: DALIA Nitroglycerin (Nitroglycerin 0.4 Mg Sl Tab) 0.4 mg SL [id number] PRN PRN Reason: Chest Pain Last Admin: 12/18/20 12:40 Dose: 0.4 mg Documented by: Admin: 12/18/20 12:29 Dose: 0.4 mg Documented by: Admin: 12/18/20 12:21 Dose: 0.4 mg Documented by: DALIA Vital Signs Vital signs: Vital Signs - 8 hr 12/18/20 11:02 12/18/20 11:22 12/18/20 11:30 Pulse Rate 75 70 68 Respiratory Rate 35 H 34 H 28 H Blood Pressure 119/64 119/64 120/67 Pulse Oximetry 100 100 12/18/20 12:00 12/18/20 12:01 12/18/20 12:21 Pulse Rate 69 67 68 Respiratory Rate 32 H 27 H Blood Pressure 148/71 H 148/71 H Pulse Oximetry 100 100 12/18/20 12:29 12/18/20 12:30 12/18/20 12:31 Pulse Rate 91 H 88 86 Respiratory Rate 20 17 Blood Pressure 111/60 111/60 Pulse Oximetry 99 99 12/18/20 12:40 12/18/20 12:44 12/18/20 13:00 Pulse Rate 85 94 H 71 Respiratory Rate 32 H 23 Blood Pressure 111/60 107/57 L Pulse Oximetry 98 100 12/18/20 13:01 12/18/20 13:30 12/18/20 14:00 Pulse Rate 70 72 77 Respiratory Rate 22 19 17 Blood Pressure 106/61 109/67 112/65 Pulse Oximetry 100 100 97 MDM - Chest Pain Lab Data Result diagrams: 12/18/20 11:15 12/18/20 11:15 Labs: Lab Results 12/18/20 12/18/20 12/18/20 Range/Units 11:15 11:15 11:15 WBC 8.2 (4.5-11.0) X10^3/uL RBC 4.43 L (4.5-5.9) X10^6/uL Hgb 14.0 (13.5-17.5) g/dL Hct 41.9 (41-53) % MCV 94.6 (80-100) fL MCH 31.6 (26-34) PG MCHC 33.4 (30-36) % RDW 16.6 H (11.6-14.8) % Plt Count 325 (150-400) X10^3/uL Neut % (Auto) 70.2 (50-75) % Lymph % (Auto) 21.6 L (25-40) % Collier % (Auto) 7.5 (3-14) % Eos % (Auto) 0.3 L (2-4) % Baso % (Auto) 0.4 (0-2) % Neut # (Auto) 5800 (7187-6838) /uL Lymph # (Auto) 1800 (6490-1377) /uL Collier # (Auto) 600 (0-900) /uL Eos # (Auto) 0 (0-450) /uL Baso # (Auto) 0 (0-100) /uL ESR (0-15) MM/HR PT 12.5 (10.1-12.7) SECONDS INR 1.1 (0.9-1.3) APTT 30 (26.4-36.2) SECONDS D-Dimer (<230) ng/mL Sodium 137 (137-145) mmol/L Potassium 4.4 (3.4-5.1) mmol/L Chloride 108 H (98-107) mmol/L Carbon Dioxide 18 L (22-32) mmol/L BUN 34 H (9-20) mg/dL Creatinine 1.16 (0.66-1.25) mg/dL Estimated GFR > 60.0 (>60) mL/min BUN/Creatinine Ratio 29.3 H (6-22) Glucose 94 (80-110) mg/dL Calcium 10.0 (8.4-10.2) mg/dL Total Bilirubin 1.1 (0.2-1.3) mg/dL AST 20 (17-59) IU/L ALT 15 (<50) IU/L Alkaline Phosphatase 118 (38-126) U/L Total Creatine Kinase 70 (55-170) U/L CK-MB (CK-2) TNP CK-MB (CK-2) Rel Index TNP Troponin I < 0.012 (0.01-0.034) ng/mL C-Reactive Protein (<1.0) mg/dL NT-Pro-B Natriuret Pep (<125) pg/mL Total Protein 7.0 (6.3-8.2) g/dL Albumin 4.3 (3.5-5.0) g/dL Globulin 2.7 (1.7-4.1) g/dL Albumin/Globulin Ratio 1.6 (1.0-2.8) Lipase 34 (23-300) U/L 12/18/20 12/18/20 12/18/20 Range/Units 11:15 11:15 11:15 WBC (4.5-11.0) X10^3/uL RBC (4.5-5.9) X10^6/uL Hgb (13.5-17.5) g/dL Hct (41-53) % MCV (80-100) fL MCH (26-34) PG MCHC (30-36) % RDW (11.6-14.8) % Plt Count (150-400) X10^3/uL Neut % (Auto) (50-75) % Lymph % (Auto) (25-40) % Collier % (Auto) (3-14) % Eos % (Auto) (2-4) % Baso % (Auto) (0-2) % Neut # (Auto) (7598-7976) /uL Lymph # (Auto) (9787-0339) /uL Collier # (Auto) (0-900) /uL Eos # (Auto) (0-450) /uL Baso # (Auto) (0-100) /uL ESR 5 (0-15) MM/HR PT (10.1-12.7) SECONDS INR (0.9-1.3) APTT (26.4-36.2) SECONDS D-Dimer (<230) ng/mL Sodium (137-145) mmol/L Potassium (3.4-5.1) mmol/L Chloride (98-107) mmol/L Carbon Dioxide (22-32) mmol/L BUN (9-20) mg/dL Creatinine (0.66-1.25) mg/dL Estimated GFR (>60) mL/min BUN/Creatinine Ratio (6-22) Glucose (80-110) mg/dL Calcium (8.4-10.2) mg/dL Total Bilirubin (0.2-1.3) mg/dL AST (17-59) IU/L ALT (<50) IU/L Alkaline Phosphatase (38-126) U/L Total Creatine Kinase (55-170) U/L CK-MB (CK-2) CK-MB (CK-2) Rel Index Troponin I (0.01-0.034) ng/mL C-Reactive Protein < 0.5 (<1.0) mg/dL NT-Pro-B Natriuret Pep 94 (<125) pg/mL Total Protein (6.3-8.2) g/dL Albumin (3.5-5.0) g/dL Globulin (1.7-4.1) g/dL Albumin/Globulin Ratio (1.0-2.8) Lipase (23-300) U/L 12/18/20 12/18/20 Range/Units 12:24 13:20 WBC (4.5-11.0) X10^3/uL RBC (4.5-5.9) X10^6/uL Hgb (13.5-17.5) g/dL Hct (41-53) % MCV (80-100) fL MCH (26-34) PG MCHC (30-36) % RDW (11.6-14.8) % Plt Count (150-400) X10^3/uL Neut % (Auto) (50-75) % Lymph % (Auto) (25-40) % Collier % (Auto) (3-14) % Eos % (Auto) (2-4) % Baso % (Auto) (0-2) % Neut # (Auto) (3984-2578) /uL Lymph # (Auto) (6942-8569) /uL Collier # (Auto) (0-900) /uL Eos # (Auto) (0-450) /uL Baso # (Auto) (0-100) /uL ESR (0-15) MM/HR PT (10.1-12.7) SECONDS INR (0.9-1.3) APTT (26.4-36.2) SECONDS D-Dimer 249 H (<230) ng/mL Sodium (137-145) mmol/L Potassium (3.4-5.1) mmol/L Chloride (98-107) mmol/L Carbon Dioxide (22-32) mmol/L BUN (9-20) mg/dL Creatinine (0.66-1.25) mg/dL Estimated GFR (>60) mL/min BUN/Creatinine Ratio (6-22) Glucose (80-110) mg/dL Calcium (8.4-10.2) mg/dL Total Bilirubin (0.2-1.3) mg/dL AST (17-59) IU/L ALT (<50) IU/L Alkaline Phosphatase (38-126) U/L Total Creatine Kinase (55-170) U/L CK-MB (CK-2) CK-MB (CK-2) Rel Index Troponin I < 0.012 (0.01-0.034) ng/mL C-Reactive Protein (<1.0) mg/dL NT-Pro-B Natriuret Pep (<125) pg/mL Total Protein (6.3-8.2) g/dL Albumin (3.5-5.0) g/dL Globulin (1.7-4.1) g/dL Albumin/Globulin Ratio (1.0-2.8) Lipase (23-300) U/L Imaging Data Chest x-ray: Radiologist's Impression: Launch?[address] [address] XRay Report Signed Patient: Kristian Yin MR#: [id number] : 1955 Acct:[id number] Age/Sex: 65 / M Date of Service: 12/18/20 Loc: ED Accession Number: [id number] ?? Procedure: XR chest 1V Ordering Provider: Laci Jara D.O. PROCEDURE:? XR CHEST 1V ? INDICATIONS:? chest pain ? TECHNIQUE:? One view of the chest was acquired.? ? COMPARISON:? None. ? FINDINGS:? ? Surgical changes and devices:? Cervical fusion plate is present. ? Lungs and pleura:? Lungs are clear.? No pleural effusions or pneumothorax.? ? Mediastinum:? Mediastinal contours appear normal.? Heart size is normal.? ? Bones and chest wall:? No suspicious bony lesions.? Overlying soft tissues appear unremarkable.? ? IMPRESSION:? No acute pulmonary process. ? ? Dictated by: Brenda Crabtree M.D. on 12/18/2020 at 11:32 ? ? Approved by: Brenda Crabtree M.D. on 12/18/2020 at 11:33 ? MDM Narrative Medical decision making narrative: Patient with heart score for and chest pain that started just prior to arrival while at rest with concerning elements has multiple nonischemic EKGs and troponin x2 is negative. His D-dimer was below the cut off, therefore no CT angiogram was performed. Patient pain has improved significantly but is still suddenly present. Patient cannot be discharged home, requires admission for further evaluation including echo, trending of enzymes an d likely stress test. Discharge Plan Departure Patient Disposition: Admitted as Observation Admit Date/Time: 12/18/20 14:18 Admit Provider: Edgar Little
[2020-12-18] MEDS: NITROGLYCERIN 0.4 MG SL TAB SL ×3 (12:21→12:40)
[2020-12-18 12:44] LABS: D Dimer 249 ng/mL (<230)
--- NOTE | 2020-12-18 12:50 | PC.NURSE ---
Patient report 2/10 pain scale after third dose of Nitro.
[2020-12-18 13:36] LABS: Alanine Aminotransferase 15 IU/L (<50); Albumin 4.3 g/dL (3.5-5.0); Albumin Globulin Ratio 1.6 (1.0-2.8); Alkaline Phosphatase 118 U/L (38-126); Aspartate Aminotransferase 20 IU/L (17-59); BUN Creatinine Ratio 29.3 (6-22); Bilirubin Total 1.1 mg/dL (0.2-1.3); Blood Urea Nitrogen 34 mg/dL (9-20); Carbon Dioxide 18 mmol/L (22-32); Chloride 108 mmol/L (98-107); Creatine Kinase 70 U/L (55-170); Estimated Glomerular Filt Rate > 60.0 mL/min (>60); Globulin 2.7 g/dL (1.7-4.1); Glucose 94 mg/dL (80-110); HEMOLYSIS < 15 (0-50); Lipase 34 U/L (23-300); Potassium 4.4 mmol/L (3.4-5.1); Sodium 137 mmol/L (137-145)
[2020-12-18 13:38] LABS: Erythrocyte Sedimentation Rate 5 MM/HR (0-15)
[2020-12-18 13:41] LABS: C-Reactive Protein Quant < 0.5 mg/dL (<1.0)
[2020-12-18 13:45] LABS: NT-proBNP (BNP-Adult 18+) 94 pg/mL (<125)
[2020-12-18 13:47] LABS: Troponin I < 0.012 ng/mL (0.01-0.034)
[2020-12-18 13:55] LABS: Troponin I < 0.012 ng/mL (0.01-0.034)
[2020-12-18] MEDS: KETOROLAC 30 MG/ML VIAL 15 MG IV (14:24)
--- NOTE | 2020-12-18 16:25 | DI.ECHO.S_ITS ---
Version: 1 Study ID: [id number] [place] [address] Name: ASHLEY WALDRON Study Date: 12/18/2020, 4: 48 PM : 1955 BP: 147 / 82 mmHg Gender: Male Height: 66 in Age: 65 Years Weight: 180 lb BSA: 1.91 mA? Ordering: KLEVER MACHADO Referring: KLEVER MACHADO Clinician: Geri Stratton Reason For Study: CHEST PAIN History: Summary Statements The left ventricle is normal in size and wall thickness. Left ventricular systolic function appears normal without focal wall motion abnormalities. The ejection fraction is estimated to be 55-60%. Diastolic parameters suggest probable normal left ventricular diastolic function and normal filling pressures. The right ventricle is normal in size and function. The left atrium is borderline dilated. Right atrial size is normal. There is no significant valvular heart disease. The ascending aorta is mildly enlarged. Procedure: A two-dimensional transthoracic echocardiogram with color flow and Doppler was performed. The study quality was technically adequate. There is no prior echocardiogram noted for this patient. The patient was in sinus rhythm with heart rates between 60-70 bpm during the exam. Left Ventricle: The left ventricle is normal in size and wall thickness. Left ventricular systolic function appears normal without focal wall motion abnormalities. The ejection fraction is estimated to be 55-60%. Diastolic parameters suggest probable normal left ventricular diastolic function and normal filling pressures. Right Ventricle: The right ventricle is normal in size and function. Atria: The left atrium is borderline dilated. Right atrial size is normal. There is no Doppler evidence for an interatrial shunt. Mitral Valve: The mitral valve is normal in structure and function. There is trace mitral regurgitation. Aortic Valve: The aortic valve is trileaflet. The aortic valve opens well. There is mild aortic valve sclerosis. There is no aortic valve stenosis. No aortic regurgitation is present. Tricuspid Valve: The tricuspid valve is normal in structure and function. There is trace tricuspid regurgitation. Pulmonic Valve: The pulmonic valve is not well seen, but is grossly normal. There is no pulmonic valvular regurgitation. There is no significant valvular heart disease. Great Vessels: The aortic root is normal size. The ascending aorta is mildly enlarged. The inferior vena cava was not visualized. Pericardium/ Pleura: There is no pericardial effusion. There is no pleural effusion. 2D and M-Mode Measurements and Calculations LVIDd: 4.6 cm LVOT diam: 2.04 cm LVIDs: 3.3 cm Ao root diam: 3.7 cm IVSd: 1.06 cm asc Aorta Diam: 3.5 cm LVPWd: 0.88 cm LV dougherty. diameter/BSA (cm/m^2): 2.41 LV sys. diameter/BSA (cm/m^2): 1.73 RVD1 (basal): 3.2 cm TAPSE: 2.32 cm LA A4 area: 15.4 dental practice manager? RA area: 13.7 dental practice manager? LA A2 area: 21.8 dental practice manager? RA long axis: 4.8 cm LA length (vol): 4.8 cm RA vol: 33.3 ml LA vol: 60.1 ml RA : 17.4 ml/mA? LA vol index: 31.4 ml/mA? Doppler Measurements and Calculations Ao V2 max: 128.7 cm/sec LVOT Max Jeremy: 106.5 cm/sec Ao V2 mean: 78.4 cm/sec LV V1 max P.5 mmHg Ao V2 VTI: 25.7 cm LV V1 VTI: 23.3 cm Ao max P.6 mmHg Ao mean P.9 mmHg ROBYN(I,D): 3.0 dental practice manager? ROBYN(V,D): 2.7 dental practice manager? ROBYN indexed to BSA (cm^2/m^2): 1.54 sev ratio: 0.91 MV E max jeremy: 92.0 cm/sec MV dec time: 0.22 sec MV A max jeremy: 97.5 cm/sec MV E/A: 0.94 Med Peak E' Jeremy: 6.6 cm/sec Lat Peak E' Jeremy: 9.9 cm/sec E/e' average: 11.7 PA V2 max: 101.6 cm/sec PA mean P.06 mmHg Andrea Moreno Electronically signed by: Andrea Moreno 12/18/2020, 5: 34 PM
[2020-12-18] MEDS: NITROGLYCERIN OINT 1 INCH/GM OINT...G. 0.5 INCH TOP (16:38)
[2020-12-18 18:49] LABS: COVID19 - ADMIT (NP swab/PCR) Negative (Negative)
[2020-12-18 21:21] LABS: Troponin I < 0.012 ng/mL (0.01-0.034)
[2020-12-18] MEDS: METFORMIN HCL 500 MG TABLET PO (21:57)
[2020-12-18] MEDS: OLANZapine 2.5 MG TABLET 20 MG PO (21:57)
[2020-12-18] MEDS: ATORVASTATIN 20 MG TABLET 10 MG PO (21:57)
--- NOTE | 2020-12-18 23:00 | PC.NURSE ---
Admit/Discharge Note- Patient arrived to room via stretcher from ER at 1605. Admit questions done, admission assessment done, medications reviewed, and skin check completed. Patient oriented to bed and bed controls, room, lights, phone, menu, and call cooley/tv remote. Safety measures in place. Patient agrees to call for assistance. Call cooley and phone within reach. will continue to monitor.
[2020-12-19] VITALS (7 sets, daily range): BP systolic 108–158; BP diastolic 49–82; PULSE 69–82; RESP 18; TEMP 35.9–36.2; O2SAT 96–100
--- NOTE | 2020-12-19 01:55 | P.HP_ITS ---
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 He developed a sudden onset retrosternal, right-sided chest pain that is both pressure-like and sharp and stabbing in nature, it does not radiate, constant, and not reproducible with palpation. He states that it seems to be worse when he takes a big deep breath or movement. He does not have any changes in vision but did have dizziness upon standing, he notes no swelling in his extremities his pressure in the ED was 10/10 upon admit to the floor, his chest pain continues at a 3/10. Was in his normal state of health.? He does state that he had Chest pain event years ago and had and angio which did not demonstrate the need for a stent or any further interventions.? Patient reports that he had been drinking approximately a 6 pack a week for 50 some odd years but quit approximately 6-8 months ago. He denies any history of cancer or blood clot. Patient denies any recent physical exertion, or increased stress although his azpnqr-zw-wks does live with him and her dog yesterday. Patient's vitals upon admit were stable with a BP of 152/70, HR 71, R 18, O2 saturation 100% on room air. Patient does appear short of breath with increased work of breathing, upon physical exam his breaths are shallow and the patient is quite sweaty, though his O2 saturation continues at 100% and mildly elevated respiratory rate of 16. Patient's CBC within normal limits, patient's CMP chloride 108, BUN 34, H CO3 18, patient's ER SA, lipase, troponins x3, CRP, BNP are all WNL. Patient has a heart score of 4, D-dimer 249. Patient's was reported to have multiple nonischemic EKGs in the ED. Echo demonstrated EF of 55-60%, ascending aorta moderate enlargement. Patient's chest x-ray was negative for acute cardiopulmonary process. Patient was unable to verify medication list, and stated that his spouse would be unable to verify as well, nurse to call the PCP office in the morning to verify medications- possible medication noncompliance. Patient admitted with chest pain rule out ACS versus CHF. Patient History Medical History Degenerative disc disease History of bleeding ulcers HNP (herniated nucleus pulposus), lumbar HTN (hypertension) Hypertriglyceridemia Nephrolithiasis Non-insulin dependent type 2 diabetes mellitus Surgical History History of cervical spinal surgery History of cholecystectomy History of gastric bypass Status post lumbar surgery Family & Social History Family History Mother No known health problems Father No known health problems Social History: household members spouse,family Prior Living Arrangements House Safety & Behavioral: Feels Safe in Current Yes Environment Been Physically Hurt or No Threatened By a Person Suicidal Ideation Description None Suicide Plan Description No Plan Tobacco & Substance use: Tobacco type cigarettes Smoking Status Current every day smoker Smoking packs per day 1 ppd x 56yrs alcohol intake drink a 6 pack q.week times 50 years, reports quitting 60 months ago. -denies history of alcohol abuse alcohol intake frequency other Substance Use Type does not use Meds Home Medications and Allergies Home Medications Medication Instructions Recorded Confirmed Type amlodipine 10 mg tablet 10 mg PO DAILY 09/10/18 04/26/19 History aspirin 81 mg tablet,delayed 81 mg PO DAILY 09/10/18 04/26/19 History release cyanocobalamin (vitamin B-12) 1,000 mcg PO DAILY #0 09/10/18 04/26/19 History 1,000 mcg tablet (Vitamin B-12) diphenhydramine 25 2 tab PO BEDTIME PRN 09/10/18 04/26/19 History mg-acetaminophen 500 mg tablet (Tylenol PM Extra Strength) metformin 500 mg tablet 500 mg PO BID 09/10/18 12/18/20 History multivitamin 1 tab PO DAILY 09/10/18 04/26/19 History omeprazole 20 mg capsule,delayed 20 mg PO DAILY 09/10/18 12/18/20 History release simvastatin 20 mg tablet 20 mg PO BEDTIME 09/10/18 12/18/20 History tamsulosin 0.4 mg capsule 0.8 mg PO DAILY 09/10/18 12/18/20 History telmisartan 80 1 tab PO DAILY 09/10/18 12/18/20 History mg-hydrochlorothiazide 25 mg tablet acetaminophen 325 mg tablet 975 mg PO Q8H PRN #30 tab 09/11/18 04/26/19 Rx lidocaine 5 % topical patch 1 ea TOPICAL DAILY #10 patch 09/11/18 04/26/19 Rx duloxetine 30 mg capsule,delayed 30 mg PO DAILY 04/26/19 04/26/19 History release fluoxetine 60 mg tablet 60 mg PO DAILY 12/18/20 12/18/20 History olanzapine 20 mg tablet 20 mg PO BEDTIME 12/18/20 12/18/20 History omeprazole 20 mg capsule,delayed 20 mg PO DAILY 12/18/20 12/18/20 History release Allergies Allergy/AdvReac Type Severity Reaction Status Date / Time NSAIDS (Non-Steroidal AdvReac Mild CAN TAKE, Verified 04/26/19 08:55 Anti-Inflamma BUT TRIES [NSAIDS (NON-STEROIDAL TO AVOID ANTI-INFLAMMA] R/T GASTRIC BYPASS Review of Systems Review of Systems Narrative: All 12 point systems reviewed with the patient and are negative except otherwise documented. Exam Vital Signs (past 8 hours): - 12/18/20 19:41 12/18/20 20:20 12/18/20 20:49 Temperature 98.0 F Pulse Rate 70 Respiratory Rate 18 Blood Pressure 105/64 Pulse Oximetry 98 98 98 12/18/20 22:44 12/18/20 23:25 12/19/20 00:00 Temperature 97.7 F Pulse Rate 70 66 Respiratory Rate 18 Blood Pressure 106/64 105/60 Pulse Oximetry 97 97 Oxygen Delivery Method Room Air Oxygen Flow Rate 0 Narrative Exam Narrative: General: Patient is a well-developed, well-nourished male in no distress at this time. HEENT: Normocephalic, atraumatic, extraocular muscles intact, oral pharynx is clear and mucous membranes are moist. Neck is supple and symmetric, trachea is midline, no adenopathy, no thyroid enlargement, nontender, no masses palpated. Negative for JVD Chest: Normal AP diameter and contour without kyphoscoliosis, no nasal flaring, retractions. Mildly tachypneic, labored, increased work of breathing. Lungs: Auscultation of all lung [place] are clear, shallow breaths without adventitious sounds, wheezes, rhonchi, or rales. Cardio: S1 & S2 with regular rate and rhythm without murmur, rubs, or gallops, no carotid bruit, no cardiac pulsations present. Abdomen: Soft nontender, negative for organomegaly, or masses. Bowel sounds are present in all 4 quadrants without guarding or rebound, no CVA tenderness. Musculoskeletal: Muscle strength and tone are equal within normal limits, no deformity, crepitus, effusions, cyanosis, clubbing or edema present. Full range of motion intact radial and pedal pulses are normal. Skin: Warm, diaphoretic and intact without rashes, ulcerations or petechiae. Neuro: Alert and orientated x3, strength is +5/5 in all extremities, sensation to touch intact, no gross deficits noted of cranial nerves. Psych: Patient has a well-kept appearance, appropriate affect, mental status attitude thought context and judgment are appropriate for age. Objective Labs Result Diagrams: 12/18/20 11:15 12/18/20 11:15 Labs: Laboratory Results - last 24 hr 12/18/20 12/18/20 12/18/20 11:15 11:15 11:15 WBC 8.2 RBC 4.43 L Hgb 14.0 Hct 41.9 MCV 94.6 MCH 31.6 MCHC 33.4 RDW 16.6 H Plt Count 325 Neut % (Auto) 70.2 Lymph % (Auto) 21.6 L Hendricks % (Auto) 7.5 Eos % (Auto) 0.3 L Baso % (Auto) 0.4 Neut # (Auto) 5800 Lymph # (Auto) 1800 Hendricks # (Auto) 600 Eos # (Auto) 0 Baso # (Auto) 0 ESR PT 12.5 INR 1.1 APTT 30 D-Dimer Sodium 137 Potassium 4.4 Chloride 108 H Carbon Dioxide 18 L BUN 34 H Creatinine 1.16 Estimated GFR > 60.0 BUN/Creatinine Ratio 29.3 H Glucose 94 Calcium 10.0 Total Bilirubin 1.1 AST 20 ALT 15 Alkaline Phosphatase 118 Total Creatine Kinase 70 CK-MB (CK-2) TNP CK-MB (CK-2) Rel Index TNP Troponin I < 0.012 C-Reactive Protein NT-Pro-B Natriuret Pep Total Protein 7.0 Albumin 4.3 Globulin 2.7 Albumin/Globulin Ratio 1.6 Lipase 34 SARS-CoV-2 (PCR) 12/18/20 12/18/20 12/18/20 11:15 11:15 11:15 WBC RBC Hgb Hct MCV MCH MCHC RDW Plt Count Neut % (Auto) Lymph % (Auto) Hendricks % (Auto) Eos % (Auto) Baso % (Auto) Neut # (Auto) Lymph # (Auto) Hendricks # (Auto) Eos # (Auto) Baso # (Auto) ESR 5 PT INR APTT D-Dimer Sodium Potassium Chloride Carbon Dioxide BUN Creatinine Estimated GFR BUN/Creatinine Ratio Glucose Calcium Total Bilirubin AST ALT Alkaline Phosphatase Total Creatine Kinase CK-MB (CK-2) CK-MB (CK-2) Rel Index Troponin I C-Reactive Protein < 0.5 NT-Pro-B Natriuret Pep 94 Total Protein Albumin Globulin Albumin/Globulin Ratio Lipase SARS-CoV-2 (PCR) 12/18/20 12/18/20 12/18/20 12:24 13:20 17:50 WBC RBC Hgb Hct MCV MCH MCHC RDW Plt Count Neut % (Auto) Lymph % (Auto) Hendricks % (Auto) Eos % (Auto) Baso % (Auto) Neut # (Auto) Lymph # (Auto) Hendricks # (Auto) Eos # (Auto) Baso # (Auto) ESR PT INR APTT D-Dimer 249 H Sodium Potassium Chloride Carbon Dioxide BUN Creatinine Estimated GFR BUN/Creatinine Ratio Glucose Calcium Total Bilirubin AST ALT Alkaline Phosphatase Total Creatine Kinase CK-MB (CK-2) CK-MB (CK-2) Rel Index Troponin I < 0.012 C-Reactive Protein NT-Pro-B Natriuret Pep Total Protein Albumin Globulin Albumin/Globulin Ratio Lipase SARS-CoV-2 (PCR) Negative 12/18/20 20:50 WBC RBC Hgb Hct MCV MCH MCHC RDW Plt Count Neut % (Auto) Lymph % (Auto) Hendricks % (Auto) Eos % (Auto) Baso % (Auto) Neut # (Auto) Lymph # (Auto) Hendricks # (Auto) Eos # (Auto) Baso # (Auto) ESR PT INR APTT D-Dimer Sodium Potassium Chloride Carbon Dioxide BUN Creatinine Estimated GFR BUN/Creatinine Ratio Glucose Calcium Total Bilirubin AST ALT Alkaline Phosphatase Total Creatine Kinase CK-MB (CK-2) CK-MB (CK-2) Rel Index Troponin I < 0.012 C-Reactive Protein NT-Pro-B Natriuret Pep Total Protein Albumin Globulin Albumin/Globulin Ratio Lipase SARS-CoV-2 (PCR) Assessment & Plan Assessment & Plan narrative: Kristian Yin is a 65year old male daily smoker with history of coronary artery disease, 56 year smoker, hypertension, BPH, and wqt-lofjjcg-pnnxyofuq type 2 diabetes presented to the ED EMS for 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 He developed a sudden onset retrosternal, right-sided chest pain. Admitted for acute chest pain rule out ACS versus CHF. 1. Chest Pain, acute, right sided-retrosternal, acute, present on admission- unresolved continues -Rule out myocardial ischemia, ACS, CAD, aortic dissection, CHF -Suspect this is myocardial ischemia or ACS due to vascular disease. - BP of 152/70, HR 71, R 18, O2 saturation 100% on room air. Patient does appear short of breath with increased work of breathing, upon physical exam his breaths are shallow and the patient is quite sweaty, though his O2 saturation continues at 100% and mildly elevated respiratory rate of 16. -ESR, lipase, troponins x3, CRP, BNP are all WNL. Heart score: 4, D-dimer: 249. -multiple nonischemic EKGs -Echo demonstrated EF of 55-60%, ascending aorta moderate enlargement. -PRN for CP:nitro paste, morphine, sublingual nitro (hold for asymptomatic SBP <100 - DBP <60) -RN to call PCP office in am to verify Home meds -ASA 81 mgq.day, Lovenox 40 mg, HCTZ 25 mg q.day -Stress test tomorrow, monitored on tele. 2.Essential hypertension, acute on chronic condition, present on admission, uncontrolled -continue patients losarten/HCTZ -Continue trending BP -monitored on tele 3. Koe-tadtbag-ubkcvfgxb type 2 diabetes, chronic, present on admission, stable -continue metformin 500 mg BID.? Admit glucose 94 -A1C ordered 4. Dyslipidemia, chronic condition, due to non insulin-dependent type 2 diabetes, present on admission, stable -ordered Lipitor 10mg -lipid panel ordered 5. BPH, chronic condition, present on admission, stable -continue tamsulosin 0.4 mg QD 6. Tobacco abuse, 56 years, acute on chronic, present on admission -counseling provided regarding tobacco cessation, nicotine patch offered patient refused 7. Obesity as evidence by BMI of 28.1, acute on chronic, present on admission -consideration will be given to dietary counseling 8. Depression, chronic, present on admission-stable -continue patient's Zyprexa Code status:Full Surrogate decision maker: Spouse Divya BARNETTID PCR:Negative COVID vaccination: Unknown DVT/VTE prophylaxis: Lovenox 40 mg and SCDs Disposition: Patient admitted for observation chest pain rule out, estimated length of stay less than 2 midnights I have utilized all available immediate resources to obtain, update, or review the patient's current medications. I confirmed that the patient's advanced care plan is present, Code status is documented and/or surrogate decision maker is listed in the patient's medical record. Time Spent With Patient Critical Care time: I spent a total of [] minutes of critical care time on this patient's care today; this time is exclusive of procedural time. Quality VTE Deep Vein Thrombosis/Pulmonary Embolism Present on Admission: No
[2020-12-19 02:52] LABS: Hemoglobin A1C% w Est Avg Glu 5.8 % (4.0-6.0)
[2020-12-19 05:36] LABS: Troponin I < 0.012 ng/mL (0.01-0.034)
[2020-12-19] MEDS: PANTOPRAZOLE DR 20 MG TABLET PO (06:13)
--- NOTE | 2020-12-19 06:51 | PC.NURSE ---
At approx 0400, pt denying any chest pain. BP 133/74 w/ nitro paste scheduled for 0430- discussed w/ provider, agreed to not administer nitro paste. Provider informed this RN of parameters placed for nitro paste administration- if pt asymptomatic, SBP <100 or DBP <60, OK to hold nitro paste. Pt presenting with no other cardiac related symptom including dizziness, nausea, numbness or tingling, palpations, or headache.
[2020-12-19] MEDS: TAMSULOSIN 0.4 MG CAPSULE 0.8 MG PO (09:58)
[2020-12-19] MEDS: ENOXAPARIN 40 MG/0.4 ML SYRINGE SUBCUT (09:58)
[2020-12-19] MEDS: LOSARTAN 50 MG TABLET 100 MG PO (09:58)
[2020-12-19] MEDS: hydroCHLOROthiazide 25 MG TABLET PO (09:58)
[2020-12-19] MEDS: ASPIRIN EC 81 MG TABLET PO (09:58)
[2020-12-19] MEDS: METFORMIN HCL 500 MG TABLET PO (09:59)
--- NOTE | 2020-12-19 13:40 | DI.NM.S_ITS ---
DATE OF SERVICE: PROCEDURE: Exercise perfusion study. DATE OF STUDY: 12/19/2020 INDICATIONS: Chest pain with underlying hypertension, hyperlipidemia, diabetes mellitus. RADIOPHARMACEUTICAL: 27.0 millicurie technetium-99m Myoview IV was injected at stress and 10.7 millicurie technetium-99m Myoview IV was injected at rest. CARDIAC STRESS: The patient underwent exercise perfusion study under the supervision of an attending staff. He walked on Trevor protocol for 7 minutes and 30 seconds, achieved 88 percent of target heart rate and normal blood pressure response. Baseline blood pressure 110/70 mmHg. Peak blood pressure 152/70 mmHg. Baseline rhythm was sinus. During stress, there were no convincing ischemic changes seen. Occasional PVCs were seen without any sustained ventricular arrhythmia. At peak exercise, patient had chest discomfort which was on a scale of 1-10, 2 in intensity and persisted in recovery. RAW DATA: There is increased subdiaphragmatic activity. GATED STUDY: Resting LV ejection fraction 71 percent and stress LV ejection fraction 73 percent. Resting end-diastolic volume 86 mL. TID ratio 0.82 which is within normal limits. Lung/heart ratio 0.28, which is within normal limits. MYOCARDIAL PERFUSION SCAN: Stress supine images revealed small size, mildly decreased perfusion of inferior wall, which got completely resolved during prone images suggestive of diaphragmatic tissue attenuation artifact. The stress prone images revealed normal myocardial perfusion. CONCLUSION: This is a normal myocardial perfusion study with evidence of diaphragmatic tissue attenuation artifact which got resolved during prone images. Preserved left ventricular function. TANNA -20 percent. Normal hemodynamic response. No obvious ischemic EKG changes. The patient had mild discomfort at peak exercise without any ischemic changes that time. Overall, this is a low-risk myocardial perfusion study. Kristian Yin - JOANA/bentley/cs doc#: [id number]/job#: [id number] dd: 12/19/2020 13:03:00 dt: 12/19/2020 13:30:00 DICTATING MD/COPIES TO: Margaret Santiago MD COPIES MNE: TOD;
--- NOTE | 2020-12-19 21:51 | P.DS_ITS ---
History of Present Illness History of Present Illness Chief complaint: Chest pain Discharge Providers Provider Date of admission: 12/18/20 14:18 Discharge Date: 12/19/20 Primary care physician: Shima Forrest Discharge provider: Panda Rice MD Summary Hospital Course Discharge Diagnosis: 1. Chest pain 2. Hypertension 3. Type 2 Diabetes 4. Hyperlipidemia 5. Tobacco abuse 6. Obesity 7. Depression Hospital Course: Mr. Yin was admitted with chest pain. He had a recent ECHO which showed EF of 55-60%. he had troponins x3 that were negative. His EKG showed no acute ischemia. He had a stress test that was low risk. His chest pain resolved. 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 He is encour aged to quit smoking Exam Vital Signs (past 8 hours): Oxygen Delivery Method Room Air Oxygen Flow Rate 0 Narrative Exam Narrative: General:?no acute distress Lungs:? clear bilaterally Cardio:?regular rate and rhythm without murmur Abdomen:? Soft nontender, normal bowel sounds Objective Labs Result Diagrams: 12/18/20 11:15 12/18/20 11:15 Labs: Laboratory Results - last 24 hr 12/18/20 12/19/20 11:15 05:04 Hemoglobin A1c 5.8 Troponin I < 0.012 [facility] Medical History Degenerative disc disease History of bleeding ulcers HNP (herniated nucleus pulposus), lumbar HTN (hypertension) Hypertriglyceridemia Nephrolithiasis Non-insulin dependent type 2 diabetes mellitus Surgical History History of cervical spinal surgery History of cholecystectomy History of gastric bypass Status post lumbar surgery Family History Mother No known health problems Father No known health problems Social History household members: spouse and family Smoking Status: Current every day smoker alcohol intake: never Discharge Plan Discharge Plan Patient Disposition: Home Provider Discharge Comment: Mr. Yin came to the hospital with chest pain. He had cardiac enzymes checked, and they were negative, which means he did not have a heart attack. He had a stress test done which was normal, which means no evidence of blockage was found on this test. However, he should follow up with a drivers license examiner and a PCP to further monitor him. Discharge orders & Medications Prescriptions: Continued duloxetine 30 mg Capsule,Delayed Release(Dr/Ec) 30 mg PO DAILY RF: 0 metformin 500 mg tablet 500 mg PO BID RF: 0 tamsulosin 0.4 mg capsule 0.8 mg PO DAILY RF: 0 amlodipine 10 mg tablet 10 mg PO DAILY RF: 0 simvastatin 20 mg tablet 20 mg PO BEDTIME RF: 0 omeprazole 20 mg capsule,delayed release(DR/EC) 20 mg PO DAILY RF: 0 telmisartan-hydrochlorothiazid 80-25 mg tablet 1 tab PO DAILY RF: 0 multivitamin Tablet 1 tab PO DAILY RF: 0 cyanocobalamin (vitamin B-12) [Vitamin B-12] 1,000 mcg Tablet 1,000 mcg PO DAILY Qty: 0 RF: 0 aspirin 81 mg Tablet,Delayed Release (Dr/Ec) 81 mg PO DAILY RF: 0 diphenhydramine-acetaminophen [Tylenol PM Extra Strength] 25-500 mg Tablet 2 tab PO BEDTIME PRN (Reason: Pain (Scale Score 1-3)) RF: 0 lidocaine 5 % Adhesive Patch,Medicated 1 ea topical DAILY Qty: 10 RF: 0 acetaminophen 325 mg Tablet 975 mg PO Q8H PRN (Reason: Pain (Scale Score 4-6)) Qty: 30 RF: 0 omeprazole 20 mg capsule,delayed release(DR/EC) 20 mg PO DAILY RF: 0 olanzapine 20 mg tablet 20 mg PO BEDTIME RF: 0 fluoxetine 60 mg tablet 60 mg PO DAILY RF: 0 Follow up/Referrals: Jered Villafuerte MD [Physician] - (history of CAD, chest pain, negative stress, regular follow up) Shima Forrest [Primary Care Provider] - Diet/Activity/Treatments Diet: Low-sodium and Low-cholesterol Visit Report/Discharge Packet Instructions: DI for Chest Pain Discharge Data Primary Care Provider: Shima Forrest Attending Provider: Edgar Little VTE Deep Vein Thrombosis/Pulmonary Embolism Present on Admission: No MIPS - DC The patient has current or prior documentation of left ventricular ejection fraction (LVEF) less than 40%, or moderate or severely depressed left ventricular systolic function.: Yes
== END 2020-12-19 14:30 | disposition home or self-care (01) ==
LOC: ED 14:15 → AC 14:19
PROVIDERS: Nurse Practitioner Family; Admitting Provider Internal Medicine; Emergency Provider Emergency Medicine; PCP Physician Assistant Medical; Referring Provider Emergency Medicine; Visit Provider Internal Medicine
DX: R07.9 Chest pain, unspecified (principal); I10 Essential (primary) hypertension; I25.10 Atherosclerotic heart disease of native coronary artery without angina pectoris; F17.210 Nicotine dependence, cigarettes, uncomplicated; E11.9 Type 2 diabetes mellitus without complications; Z79.84 Long term (current) use of oral hypoglycemic drugs; E78.5 Hyperlipidemia, unspecified; N40.0 Benign prostatic hyperplasia without lower urinary tract symptoms; F32.9 Major depressive disorder, single episode, unspecified; E66.9 Obesity, unspecified; Z68.28 Body mass index [BMI] 28.0-28.9, adult; Z20.822 Contact with and (suspected) exposure to COVID-19
CPT/HCPCS: 36415; 71045; 78452; 80053; 81003; 82550; 82962; 83036; 83690; 83880; 84484; 85025; 85379; 85610; 85651; 85730; 86140; 87635; 93005; 93017; 93306; 94760; 96361; 96372; 96374; 99284; 99406; C9803; G0378; A9502; J1650; J1885

== ENCOUNTER 2021-09-12 11:09 | Emergency (ER) | payer MEDICARE, OTHER, SELFPAY ==
[2020-12-18 15:59] VITALS: BMI 28.0
[2021-09-12] VITALS (27 sets, daily range): BP systolic 82–142; BP diastolic 55–75; PULSE 55–81; RESP 14–32; TEMP 35.9; O2SAT 90–100; BMI 27.2
--- NOTE | 2021-09-12 11:21 | DI.RAD.S_ITS ---
PROCEDURE: XR CHEST 1V INDICATIONS: shortness of breath TECHNIQUE: One view of the chest was acquired. COMPARISON: [facility], CR, XR CHEST 1V, 12/18/2020, 11:07. FINDINGS: Surgical changes and devices: Anterior cervical body fusion hardware. Lungs and pleura: Lungs are clear. No pleural effusions or pneumothorax. Mediastinum: Mediastinal contours appear normal. Heart size is normal. Bones and chest wall: No suspicious bony lesions. Overlying soft tissues appear unremarkable. IMPRESSION: No acute cardiopulmonary disease. Dictated by: Boroke Livingston M.D. on 09/12/2021 at 13:22 Approved by: Brooke Livingston M.D. on 09/12/2021 at 13:22
[2021-09-12 11:44] LABS: Add Manual Diff / Slide Review NO; Basophils Absolute Auto 0 /uL (0-100); Basophils Percent Auto 0.6 % (0-2); Eosinophils Absolute Auto 0 /uL (0-450); Eosinophils Percent Auto 0.5 % (2-4); Hematocrit 40.5 % (41-53); Hemoglobin 14.2 g/dL (13.5-17.5); Lymphocytes Absolute Auto 1600 /uL (1100-4500); Lymphocytes Percent Auto 20.2 % (25-40); Mean Corpuscular HGB Conc 35.1 % (30-36); Mean Corpuscular Hemoglobin 32.5 PG (26-34); Mean Corpuscular Volume 92.7 fL (80-100); Monocytes Absolute Auto 500 /uL (0-900); Monocytes Percent Auto 6.7 % (3-14); Neutrophils Absolute Auto 5800 /uL (1500-7000); Platelet Count 285 X10^3/uL (150-400); Red Blood Cell Count 4.37 X10^6/uL (4.5-5.9); White Blood Cell Count 8.1 X10^3/uL (4.5-11.0)
[2021-09-12 11:53] LABS: INR 1.2 (0.9-1.3); Prothrombin Time 13.2 SECONDS (10.1-12.7)
[2021-09-12 11:59] LABS: Alanine Aminotransferase 19 IU/L (<50); Albumin 4.3 g/dL (3.5-5.0); Albumin Globulin Ratio 1.4 (1.0-2.8); Alkaline Phosphatase 101 U/L (38-126); Aspartate Aminotransferase 22 IU/L (17-59); BUN Creatinine Ratio 21.2 (6-22); Bilirubin Total 0.6 mg/dL (0.2-1.3); Blood Urea Nitrogen 22 mg/dL (9-20); Calcium 9.3 mg/dL (8.4-10.2); Carbon Dioxide 18 mmol/L (22-32); Chloride 111 mmol/L (98-107); Creatine Kinase 83 U/L (55-170); Estimated Glomerular Filt Rate > 60 mL/min (>60); Globulin 3.1 g/dL (1.7-4.1); Glucose 103 mg/dL (80-110); HEMOLYSIS < 15 (0-50); Potassium 3.5 mmol/L (3.4-5.1); Sodium 138 mmol/L (137-145); Total Protein 7.4 g/dL (6.3-8.2)
[2021-09-12 12:00] LABS: Lactate (Lactic Acid) 1.9 mmol/L (0.7-2.1)
--- NOTE | 2021-09-12 12:07 | ED.CHESTPAIN ---
HPI - Chest Pain General Chief Complaint: Chest Pain Stated Complaint: SOB, chest pain, body pain, dizzy- 3 weeks Time Seen by Provider: 09/12/21 11:35 Source: patient Mode of arrival: Wheelchair Limitations: no limitations History of Present Illness HPI narrative: Patient is a 66-year-old male with history of coronary artery disease, hypertension presenting today with increasing shortness of breath, headaches and chest pain. He said over last couple weeks had some shortness of breath with exertion move however today it is a little bit more any has centralized chest pain does not radiate. Patient previously was admitted 12/19/2020 with chest pain. At that time he had an echocardiogram which showed an EF of 50 does 60% he had 3- troponins and a stress test that was low risk. Today he is having worsening chest discomfort. He denies any cough did he denies orthopnea, no peripheral edema. Patient states he has had chest pain off and on today he got at the center chest radiated to his shoulders it lasted for about an hour he still has a little twinge left. States he has a very remote history of [place] but has no stents and no CABG. He is at 1 point he did have a cardiac catheterization. He admits to smoking cigarettes Related Data Home Medications Medication Instructions Recorded Confirmed amlodipine 10 mg tablet 10 mg PO DAILY 09/10/18 04/26/19 aspirin 81 mg tablet,delayed 81 mg PO DAILY 09/10/18 04/26/19 release cyanocobalamin (vitamin B-12) 1,000 mcg PO DAILY ##0 09/10/18 04/26/19 1,000 mcg tablet (Vitamin B-12) diphenhydramine 25 2 tab PO BEDTIME PRN Pain (Scale 09/10/18 04/26/19 mg-acetaminophen 500 mg tablet Score 1-3) (Tylenol PM Extra Strength) metformin 500 mg tablet 500 mg PO BID 09/10/18 12/18/20 multivitamin 1 tab PO DAILY 09/10/18 04/26/19 omeprazole 20 mg capsule,delayed 20 mg PO DAILY 09/10/18 12/18/20 release simvastatin 20 mg tablet 20 mg PO BEDTIME 09/10/18 12/18/20 tamsulosin 0.4 mg capsule 0.8 mg PO DAILY 09/10/18 12/18/20 telmisartan 80 1 tab PO DAILY 09/10/18 12/18/20 mg-hydrochlorothiazide 25 mg tablet duloxetine 30 mg capsule,delayed 30 mg PO DAILY 04/26/19 04/26/19 release fluoxetine 60 mg tablet 60 mg PO DAILY 12/18/20 12/18/20 olanzapine 20 mg tablet 20 mg PO BEDTIME 12/18/20 12/18/20 omeprazole 20 mg capsule,delayed 20 mg PO DAILY 12/18/20 12/18/20 release Previous Rx's Medication Instructions Recorded acetaminophen 325 mg tablet 975 mg PO Q8H PRN Pain (Scale 09/11/18 Score 4-6) #30 tabs lidocaine 5 % topical patch 1 ea topical DAILY #10 patches 09/11/18 Allergies Allergy/AdvReac Type Severity Reaction Status Date / Time NSAIDS (Non-Steroidal AdvReac Mild CAN TAKE, Verified 09/12/21 11:18 Anti-Inflamma BUT TRIES [NSAIDS (NON-STEROIDAL TO AVOID ANTI-INFLAMMA] R/T GASTRIC BYPASS Review of Systems Review of Systems Narrative: GENERAL: Denies chills, fatigue, malaise, fever, sweats, travel HEENT: Denies sinus pain, ear pain, sore throat, difficulty swallowing, neck pain RESPIRATORY: See HPI CARDIOVASCULAR: See HPI GASTROINTESTINAL: Denies nausea, vomiting, abdominal pain, diarrhea, constipation, melena. : Denies dysuria, frequency, incontinence, hematuria, urinary retention, flank pain. MUSCULOSKELETAL: Denies weakness, joint pain, or bony pain SKIN: No rash, no erythema, no pruritus NEUROLOGIC: Denies weakness, dizziness, headache, numbness, change in speech, confusion PSYCHIATRIC: No concerning psychosocial issues. 12 point review of systems is negative except for those stated above and HPI Patient History Medical History Degenerative disc disease History of bleeding ulcers HNP (herniated nucleus pulposus), lumbar HTN (hypertension) Hypertriglyceridemia Nephrolithiasis Non-insulin dependent type 2 diabetes mellitus Surgical History History of cervical spinal surgery History of cholecystectomy History of gastric bypass Status post lumbar surgery Family History Mother No known health problems Father No known health problems Social History household members: spouse and family Smoking Status: Current every day smoker alcohol intake: never Smoking Status: Current every day smoker tobacco type: cigarettes alcohol intake frequency: holidays/special occasions only Substance Use Type: does not use Exam Initial Vital Signs Initial Vital Signs: Vital Signs Temperature 96.6 F L 09/12/21 11:18 Pulse Rate 63 09/12/21 11:18 Respiratory Rate 18 09/12/21 11:18 Blood Pressure 106/55 L 09/12/21 11:18 Pulse Oximetry 93 09/12/21 11:18 Oxygen Delivery Method 09/12/21 11:18 GENERAL: Alert 66-year-old male appears in mild discomfort HEENT: Head atraumatic,EOMI, pupils reactive, face symmetric, moist mucous membranes CARDIOVASCULAR: Regular rate and rhythm without murmurs, rubs or gallops. RESPIRATORY: Breath sounds equal bilaterally, no wheezes rales or rhonchi. ABDOMEN: Soft, nontender. Normoactive bowel sounds all 4 quadrants. No guarding or rebound. EXTREMITIES: Normal range of motion, no clubbing or edema. Neurovascularly intact NEUROLOGICAL: Alert and oriented x4.Normal gait and speech. SKIN: Warm, dry, no laceration, no petechiae, no rashes or lesions. Scores HEART Score Heart Score history: Slightly Suspicious Heart Score EKG: Normal Heart Score Age: > or = 65 years old Heart Score risk factors: 1-2 risk factors Heart Score troponin: < or = to normal limit Heart Score Total: 3 Course Orders Ordered: ED Orders 09/12/21 11:21 XR chest 1V Stat EKG-12 Lead Stat Measure peak expiratory flow ONCE RT Consult Eval and Treat Now 09/12/21 11:35 Complete Blood Count AUTO DIFF Stat Comprehensive Metabolic Panel Stat Lactate (Lactic Acid) Stat NT-proBNP (BNP-Adult 18+) Stat Prothrombin Time INR Stat Troponin & CK Cardiac Panel Stat 09/12/21 12:11 CT head/brain wo con Stat 09/12/21 12:38 CT angio chest PE protocol Stat 09/12/21 13:30 COVID19 -Nasal RAPID/Pre-Proc Stat Trop I [Troponin I] Stat 09/12/21 15:45 Trop I [Troponin I] Stat 09/12/21 15:49 EKG-12 Lead Stat Discontinued Medications Aspirin (Aspirin 81 Mg Chew Tab) 324 mg PO NOW ONE Stop: 09/12/21 15:06 Last Admin: 09/12/21 15:17 Dose: 324 mg Documented By: AT Sodium Chloride (Normal Saline 0.9%) 1,000 mls @ 1,000 mls/hr IV BOLUS ONE Stop: 09/12/21 13:11 Last Infusion: 09/12/21 13:33 Dose: 0 mls/hr Documented By: Admin: 09/12/21 12:12 Dose: 1,000 mls/hr Documented By: AT Nitroglycerin (Nitroglycerin 0.4 Mg Sl Tab) 0.4 mg SL NOW ONE Stop: 09/12/21 15:06 Last Admin: 09/12/21 15:17 Dose: 0.4 mg Documented By: AT Nitroglycerin (Nitroglycerin 0.4 Mg Sl Tab) 0.4 mg SL NOW ONE Stop: 09/12/21 15:50 Last Admin: 09/12/21 15:53 Dose: 0.4 mg Documented By: AT Vital Signs Vital signs: Vital Signs - 8 hr 09/12/21 11:18 09/12/21 11:31 09/12/21 11:32 Temperature 96.6 F L Pulse Rate 63 81 77 Respiratory Rate 18 Blood Pressure 106/55 L Pulse Oximetry 93 99 96 Oxygen Delivery Method Room Air Room Air 09/12/21 11:32 09/12/21 12:00 09/12/21 12:00 Temperature Pulse Rate 70 Respiratory Rate 19 Blood Pressure 103/61 86/55 L Pulse Oximetry 94 Oxygen Delivery Method Room Air 09/12/21 12:06 09/12/21 12:06 09/12/21 12:17 Temperature Pulse Rate 69 64 Respiratory Rate 25 H 24 Blood Pressure 82/60 L Pulse Oximetry 100 98 Oxygen Delivery Method 09/12/21 12:17 09/12/21 12:20 09/12/21 12:20 Temperature Pulse Rate 62 Respiratory Rate 19 Blood Pressure 100/57 L 94/60 Pulse Oximetry 90 L Oxygen Delivery Method 09/12/21 12:30 09/12/21 12:36 09/12/21 12:36 Temperature Pulse Rate 62 62 Respiratory Rate 24 32 H Blood Pressure 122/58 L Pulse Oximetry 100 100 Oxygen Delivery Method Room Air 09/12/21 12:40 09/12/21 12:40 09/12/21 12:50 Temperature Pulse Rate 55 L 55 L Respiratory Rate 18 17 Blood Pressure 123/61 Pulse Oximetry 100 100 Oxygen Delivery Method Room Air 09/12/21 12:50 09/12/21 13:00 09/12/21 13:00 Temperature Pulse Rate 61 Respiratory Rate 15 Blood Pressure 127/60 131/62 Pulse Oximetry 99 Oxygen Delivery Method Room Air 09/12/21 13:10 09/12/21 13:10 09/12/21 13:20 Temperature Pulse Rate 57 L Respiratory Rate 18 Blood Pressure 118/65 137/75 Pulse Oximetry 100 Oxygen Delivery Method 09/12/21 13:20 09/12/21 13:30 09/12/21 13:31 Temperature Pulse Rate 62 58 L 60 Respiratory Rate 16 22 25 H Blood Pressure Pulse Oximetry 100 100 100 Oxygen Delivery Method Room Air 09/12/21 13:31 09/12/21 13:40 09/12/21 13:40 Temperature Pulse Rate 59 L Respiratory Rate 16 Blood Pressure 140/65 128/72 Pulse Oximetry 100 Oxygen Delivery Method 09/12/21 13:50 09/12/21 13:50 09/12/21 14:00 Temperature Pulse Rate 56 L Respiratory Rate 15 Blood Pressure 142/63 H 133/61 Pulse Oximetry 100 Oxygen Delivery Method 09/12/21 14:00 09/12/21 14:30 09/12/21 14:30 Temperature Pulse Rate 60 62 Respiratory Rate 16 17 Blood Pressure 123/58 L Pulse Oximetry 98 100 Oxygen Delivery Method Room Air Room Air 09/12/21 15:00 09/12/21 15:00 09/12/21 15:30 Temperature Pulse Rate 59 L Respiratory Rate 14 Blood Pressure 137/64 122/63 Pulse Oximetry 100 Oxygen Delivery Method Room Air 09/12/21 15:30 09/12/21 16:00 09/12/21 16:00 Temperature Pulse Rate 65 71 Respiratory Rate 14 14 Blood Pressure 101/59 L Pulse Oximetry 100 99 Oxygen Delivery Method Room Air 09/12/21 16:30 09/12/21 16:31 09/12/21 16:31 Temperature Pulse Rate 59 L 59 L Respiratory Rate 17 16 Blood Pressure 129/69 Pulse Oximetry 100 99 Oxygen Delivery Method Room Air 09/12/21 16:56 09/12/21 16:56 09/12/21 17:00 Temperature Pulse Rate 58 L Respiratory Rate 16 Blood Pressure 122/69 127/68 Pulse Oximetry 100 Oxygen Delivery Method 09/12/21 17:00 Temperature Pulse Rate 56 L Respiratory Rate 14 Blood Pressure Pulse Oximetry 100 Oxygen Delivery Method Room Air MDM - Chest Pain Lab Data Result diagrams: 09/12/21 11:35 09/12/21 11:35 Labs: Lab Results 09/12/21 09/12/21 09/12/21 Range/Units 11:35 11:35 11:35 WBC 8.1 (4.5-11.0) X10^3/uL RBC 4.37 L (4.5-5.9) X10^6/uL Hgb 14.2 (13.5-17.5) g/dL Hct 40.5 L (41-53) % MCV 92.7 (80-100) fL MCH 32.5 (26-34) PG MCHC 35.1 (30-36) % RDW 15.0 H (11.6-14.8) % Plt Count 285 (150-400) X10^3/uL Neut % (Auto) 72.0 (50-75) % Lymph % (Auto) 20.2 L (25-40) % [place] % (Auto) 6.7 (3-14) % Eos % (Auto) 0.5 L (2-4) % Baso % (Auto) 0.6 (0-2) % Neut # (Auto) 5800 (5588-9444) /uL Lymph # (Auto) 1600 (3123-6966) /uL [place] # (Auto) 500 (0-900) /uL Eos # (Auto) 0 (0-450) /uL Baso # (Auto) 0 (0-100) /uL PT (10.1-12.7) SECONDS INR (0.9-1.3) Sodium 138 (137-145) mmol/L Potassium 3.5 (3.4-5.1) mmol/L Chloride 111 H (98-107) mmol/L Carbon Dioxide 18 L (22-32) mmol/L BUN 22 H (9-20) mg/dL Creatinine 1.04 (0.66-1.25) mg/dL Estimated GFR > 60 (>60) mL/min BUN/Creatinine Ratio 21.2 (6-22) Glucose 103 (80-110) mg/dL Lactate 1.9 (0.7-2.1) mmol/L Calcium 9.3 (8.4-10.2) mg/dL Total Bilirubin 0.6 (0.2-1.3) mg/dL AST 22 (17-59) IU/L ALT 19 (<50) IU/L Alkaline Phosphatase 101 (38-126) U/L Total Creatine Kinase (55-170) U/L CK-MB (CK-2) CK-MB (CK-2) Rel Index Troponin I (0.01-0.034) ng/mL NT-Pro-B Natriuret Pep (<125) pg/mL Total Protein 7.4 (6.3-8.2) g/dL Albumin 4.3 (3.5-5.0) g/dL Globulin 3.1 (1.7-4.1) g/dL Albumin/Globulin Ratio 1.4 (1.0-2.8) SARS-CoV-2 (PCR) (Negative) 09/12/21 09/12/21 09/12/21 Range/Units 11:35 11:35 13:30 WBC (4.5-11.0) X10^3/uL RBC (4.5-5.9) X10^6/uL Hgb (13.5-17.5) g/dL Hct (41-53) % MCV (80-100) fL MCH (26-34) PG MCHC (30-36) % RDW (11.6-14.8) % Plt Count (150-400) X10^3/uL Neut % (Auto) (50-75) % Lymph % (Auto) (25-40) % [place] % (Auto) (3-14) % Eos % (Auto) (2-4) % Baso % (Auto) (0-2) % Neut # (Auto) (3598-3533) /uL Lymph # (Auto) (5209-6705) /uL [place] # (Auto) (0-900) /uL Eos # (Auto) (0-450) /uL Baso # (Auto) (0-100) /uL PT 13.2 H (10.1-12.7) SECONDS INR 1.2 (0.9-1.3) Sodium (137-145) mmol/L Potassium (3.4-5.1) mmol/L Chloride (98-107) mmol/L Carbon Dioxide (22-32) mmol/L BUN (9-20) mg/dL Creatinine (0.66-1.25) mg/dL Estimated GFR (>60) mL/min BUN/Creatinine Ratio (6-22) Glucose (80-110) mg/dL Lactate (0.7-2.1) mmol/L Calcium (8.4-10.2) mg/dL Total Bilirubin (0.2-1.3) mg/dL AST (17-59) IU/L ALT (<50) IU/L Alkaline Phosphatase (38-126) U/L Total Creatine Kinase 83 (55-170) U/L CK-MB (CK-2) TNP CK-MB (CK-2) Rel Index TNP Troponin I < 0.012 < 0.012 (0.01-0.034) ng/mL NT-Pro-B Natriuret Pep 272 H (<125) pg/mL Total Protein (6.3-8.2) g/dL Albumin (3.5-5.0) g/dL Globulin (1.7-4.1) g/dL Albumin/Globulin Ratio (1.0-2.8) SARS-CoV-2 (PCR) (Negative) 09/12/21 09/12/21 Range/Units 13:30 15:45 WBC (4.5-11.0) X10^3/uL RBC (4.5-5.9) X10^6/uL Hgb (13.5-17.5) g/dL Hct (41-53) % MCV (80-100) fL MCH (26-34) PG MCHC (30-36) % RDW (11.6-14.8) % Plt Count (150-400) X10^3/uL Neut % (Auto) (50-75) % Lymph % (Auto) (25-40) % [place] % (Auto) (3-14) % Eos % (Auto) (2-4) % Baso % (Auto) (0-2) % Neut # (Auto) (9791-4227) /uL Lymph # (Auto) (9845-5335) /uL [place] # (Auto) (0-900) /uL Eos # (Auto) (0-450) /uL Baso # (Auto) (0-100) /uL PT (10.1-12.7) SECONDS INR (0.9-1.3) Sodium (137-145) mmol/L Potassium (3.4-5.1) mmol/L Chloride (98-107) mmol/L Carbon Dioxide (22-32) mmol/L BUN (9-20) mg/dL Creatinine (0.66-1.25) mg/dL Estimated GFR (>60) mL/min BUN/Creatinine Ratio (6-22) Glucose (80-110) mg/dL Lactate (0.7-2.1) mmol/L Calcium (8.4-10.2) mg/dL Total Bilirubin (0.2-1.3) mg/dL AST (17-59) IU/L ALT (<50) IU/L Alkaline Phosphatase (38-126) U/L Total Creatine Kinase (55-170) U/L CK-MB (CK-2) CK-MB (CK-2) Rel Index Troponin I < 0.012 (0.01-0.034) ng/mL NT-Pro-B Natriuret Pep (<125) pg/mL Total Protein (6.3-8.2) g/dL Albumin (3.5-5.0) g/dL Globulin (1.7-4.1) g/dL Albumin/Globulin Ratio (1.0-2.8) SARS-CoV-2 (PCR) Negative (Negative) Point of Care Testing Glucose POC 90 Imaging Data Chest x-ray: Radiologist's Impression: SVETLA[place] [id number] XRay Report Signed Patient: Kristian Yin MR#: [id number] : 1955 Acct:[id number] Age/Sex: 66 / M Date of Service: 09/12/21 Loc: ED Accession Number: [id number] ?? Procedure: XR chest 1V Ordering Provider: Sofia Vences D.O. PROCEDURE:? XR CHEST 1V ? INDICATIONS:? shortness of breath ? TECHNIQUE:? One view of the chest was acquired.? ? COMPARISON:? [facility], CR, XR CHEST 1V, 12/18/2020, 11:07. ? FINDINGS:? ? Surgical changes and devices:? Anterior cervical body fusion hardware. ? Lungs and pleura:? Lungs are clear.? No pleural effusions or pneumothorax.? ? Mediastinum:? Mediastinal contours appear normal.? Heart size is normal.? ? Bones and chest wall:? No suspicious bony lesions.? Overlying soft tissues appear unremarkable.? ? IMPRESSION:? No acute cardiopulmonary disease.? ? ? Dictated by: Brooke Livingston M.D. on 09/12/2021 at 13:22 ? ? CT scan - head: Radiologist's Impression: Signed Patient: Kristian Yin MR#: [id number] : 1955 Acct:[id number] Age/Sex: 66 / M Date of Service: 09/12/21 Loc: ED Accession Number: [id number] ?? Procedure: CT head/brain wo con Ordering Provider: Sofia Vences D.O. PROCEDURE:? CT HEAD/BRAIN WO CON ? INDICATIONS:? severe headache ? TECHNIQUE:? Noncontrast 4.5 mm thick angled axial sections acquired from the foramen magnum to the vertex, with coronal and sagittal reformats.? For radiation dose reduction, the following was used:? automated exposure control, adjustment of mA and/or kV according to patient size.? ? COMPARISON:? [facility], CT, CT HEAD/BRAIN WO CON, 09/18/2018, 5:35. ? FINDINGS:? Image quality:? Excellent.? ? CSF spaces:? Basal cisterns are patent.? No extra-axial fluid collections.? The ventricles are symmetric in size and shape.? ? Brain:? No intracranial bleeds or masses.? There is cerebral volume loss for age, with resultant ventricular and sulcal prominence.? There are periventricular and deep white matter chronic small vessel ischemic changes.? There is intracranial internal carotid artery atherosclerosis.? ? Skull and face:? Calvarium and visualized facial bones appear intact, without suspicious lesions.? ? Sinuses:? Visualized sinuses and mastoids are clear.? ? IMPRESSION:? ? 1. No CT evidence of acute intracranial process.? ? 2. Age-appropriate cerebral cortical volume loss and chronic microvascular ischemic changes. ? ? ? Dictated by: Brooke Livingston M.D. on 09/12/2021 at 13:23 ? ? CT scan - chest: Radiologist's Impression: [address] [address] [address] Scan Report Signed Patient: Kristian Yin MR#: [id number] : 1955 Acct:[id number] Age/Sex: 66 / M Date of Service: 09/12/21 Loc: ED Accession Number: [id number] ?? Procedure: CT angio chest PE protocol Ordering Provider: Sofia Vences D.O. PROCEDURE:? CT ANGIO CHEST PE PROTOCOL ? INDICATIONS:? hypotensive and sob ? TECHNIQUE:? After the administration of intravenous contrast, 2 mm thick sections acquired from the pulmonary apices to the posterior costophrenic angles.? 3-dimensional maximum intensity projection (MIP) coronal and sagittal reformats were then acquired through the thorax.? For radiation dose reduction, the following was used:? automated exposure control, adjustment of mA and/or kV according to patient size.? ? COMPARISON:? None. ? FINDINGS:? Image quality:? Excellent.? ? Pulmonary arteries:? Pulmonary arteries are normal in size, and demonstrate no intraluminal filling defects to suggest central pulmonary embolism.? ? Lungs and pleura:? Lungs are clear.? No pleural effusions or pneumothorax.? Central and peripheral airways are patent.? ? Mediastinum:? Heart size is normal, without pericardial effusion.? Moderate coronary artery calcification.? No mediastinal or hilar adenopathy.? Thoracic aorta is normal in caliber and enhancement.? Esophagus is normal in caliber, with a small hiatal hernia.? ? Bones and chest wall:? No suspicious bony lesions.? Multilevel anterior cervical vertebral body fusion.? Bridging osteophytes in the upper and midthoracic spine.? Ribs and thoracic spine appear intact throughout.? Thyroid gland is normal.? No axillary or supraclavicular adenopathy.? ? Abdomen:? Upper abdomen demonstrates changes of gastric bypass and cholecystectomy.? The unenhanced upper abdominal organs appear otherwise normal. ? IMPRESSION:? ? 1. No pulmonary embolus. ? 2. No pulmonary parenchymal pathology. ? 3. Moderate coronary artery calcification. ? 4. Small hiatal hernia and changes of prior gastric bypass.? ? Dictated by: Brooke Livingston M.D. on 09/12/2021 at 13:24 ? ? Approved by: Brooke Livingston M.D. on 09/12/2021 at 13:32 ECG Data Interpretation: EKG 1. Normal sinus rhythm rate 89 SD interval 144 QRS [address] changes similar to prior EKG 2. Normal sinus rhythm rate [address] changes EKG 3. Sinus rhythm rate 76 similar no ischemic changes MDM Narrative Medical decision making narrative: Patient's son onset of hypotension before nitroglycerin was given. Resolved with fluids. He was immediately sent to CT scan which did not show any pulmonary embolism or dissection.. Patient is having chest discomfort on shortness of breath with exertion symptoms are concerning he given nitro here in the ED which releases pain. He had a stress test was in December 2020 and an echocardiogram both of which were read as normal. He has ruled out for pulmonary embolism. He has no sign of congestive heart failure. 1515-Dr. Chandler cardiology updated patient's symptoms and test results. He states patient had a negative stress test less than 1 year ago at this time he recommends repeating a troponin if 3rd troponin is negative and symptoms improved and he agrees with outpatient Patient has 3- troponins no EKG changes. He has been given nitro and aspirin here in the ED. He actually does have a primary care provider. At this time I recommend close follow-up with PCP as an outpatient stress testing. However I strongly encouraged patient to return to the ED if he should have any new or worsening symptoms Discharge Plan Departure Patient Disposition: Home Clinical Impression: Atypical chest pain Instructions: DI for Atypical Chest Pain Activity Restrictions/Additional Instructions: *You have been diagnosed with atypical chest pain *What to do: At this time I spoke with Cardiology, he will need to follow up as an outpatient You probably still need more testing but not at this time *Continue to take medications as directed Aspirin 81 mg once a day Keep taking your blood pressure medication *Follow up with your primary care provider in 2-3 days or call [phone] *Return to ER if you should have increasing chest pain, shortness of breath, chest pain or any new, worsening or concerning symptoms Prescriptions: No Action duloxetine 30 mg Capsule,Delayed Release(Dr/Ec) 30 mg PO DAILY Label Comments: patient states he does not take this med metformin 500 mg tablet 500 mg PO BID tamsulosin 0.4 mg capsule 0.8 mg PO DAILY amlodipine 10 mg tablet 10 mg PO DAILY simvastatin 20 mg tablet 20 mg PO BEDTIME omeprazole 20 mg capsule,delayed release(DR/EC) 20 mg PO DAILY telmisartan-hydrochlorothiazid 80-25 mg tablet 1 tab PO DAILY multivitamin Tablet 1 tab PO DAILY cyanocobalamin (vitamin B-12) [Vitamin B-12] 1,000 mcg Tablet 1,000 mcg PO DAILY Qty: 0 aspirin 81 mg Tablet,Delayed Release (Dr/Ec) 81 mg PO DAILY diphenhydramine-acetaminophen [Tylenol PM Extra Strength] 25-500 mg Tablet 2 tab PO BEDTIME PRN (Reason: Pain (Scale Score 1-3)) lidocaine 5 % Adhesive Patch,Medicated 1 ea topical DAILY Qty: 10 0RF acetaminophen 325 mg Tablet 975 mg PO Q8H PRN (Reason: Pain (Scale Score 4-6)) Qty: 30 0RF omeprazole 20 mg capsule,delayed release(DR/EC) 20 mg PO DAILY Label Comments: take 1 capsule by mouth once daily 30 MINUTES BEFORE A MEAL olanzapine 20 mg tablet 20 mg PO BEDTIME Label Comments: take 1 tablet by mouth at bedtime fluoxetine 60 mg tablet 60 mg PO DAILY Label Comments: take 1 tablet by mouth once daily Referrals: Shin José PA-C [Primary Care Provider] - Elliott Chandler MD [Physician] - Visit Report Forms: Patient Portal/API
--- NOTE | 2021-09-12 12:11 | DI.CT.S_ITS ---
PROCEDURE: CT HEAD/BRAIN WO CON INDICATIONS: severe headache TECHNIQUE: Noncontrast 4.5 mm thick angled axial sections acquired from the foramen magnum to the vertex, with coronal and sagittal reformats. For radiation dose reduction, the following was used: automated exposure control, adjustment of mA and/or kV according to patient size. COMPARISON: [facility], CT, CT HEAD/BRAIN WO CON, 09/18/2018, 5:35. FINDINGS: Image quality: Excellent. CSF spaces: Basal cisterns are patent. No extra-axial fluid collections. The ventricles are symmetric in size and shape. Brain: No intracranial bleeds or masses. There is cerebral volume loss for age, with resultant ventricular and sulcal prominence. There are periventricular and deep white matter chronic small vessel ischemic changes. There is intracranial internal carotid artery atherosclerosis. Skull and face: Calvarium and visualized facial bones appear intact, without suspicious lesions. Sinuses: Visualized sinuses and mastoids are clear. IMPRESSION: 1. No CT evidence of acute intracranial process. 2. Age-appropriate cerebral cortical volume loss and chronic microvascular ischemic changes. Dictated by: Brooke Livingston M.D. on 09/12/2021 at 13:23 Approved by: Brooke Livingston M.D. on 09/12/2021 at 13:24
[2021-09-12 12:12] LABS: NT-proBNP (BNP-Adult 18+) 272 pg/mL (<125); Troponin I < 0.012 ng/mL (0.01-0.034)
[2021-09-12] MEDS: SODIUM CHLORIDE 0.9% 1,000 ML 1000 ML IV (12:12)
--- NOTE | 2021-09-12 12:38 | DI.CT.S_ITS ---
PROCEDURE: CT ANGIO CHEST PE PROTOCOL INDICATIONS: hypotensive and sob TECHNIQUE: After the administration of intravenous contrast, 2 mm thick sections acquired from the pulmonary apices to the posterior costophrenic angles. 3-dimensional maximum intensity projection (MIP) coronal and sagittal reformats were then acquired through the thorax. For radiation dose reduction, the following was used: automated exposure control, adjustment of mA and/or kV according to patient size. COMPARISON: None. FINDINGS: Image quality: Excellent. Pulmonary arteries: Pulmonary arteries are normal in size, and demonstrate no intraluminal filling defects to suggest central pulmonary embolism. Lungs and pleura: Lungs are clear. No pleural effusions or pneumothorax. Central and peripheral airways are patent. Mediastinum: Heart size is normal, without pericardial effusion. Moderate coronary artery calcification. No mediastinal or hilar adenopathy. Thoracic aorta is normal in caliber and enhancement. Esophagus is normal in caliber, with a small hiatal hernia. Bones and chest wall: No suspicious bony lesions. Multilevel anterior cervical vertebral body fusion. Bridging osteophytes in the upper and midthoracic spine. Ribs and thoracic spine appear intact throughout. Thyroid gland is normal. No axillary or supraclavicular adenopathy. Abdomen: Upper abdomen demonstrates changes of gastric bypass and cholecystectomy. The unenhanced upper abdominal organs appear otherwise normal. IMPRESSION: 1. No pulmonary embolus. 2. No pulmonary parenchymal pathology. 3. Moderate coronary artery calcification. 4. Small hiatal hernia and changes of prior gastric bypass. Dictated by: Brooke Livingston M.D. on 09/12/2021 at 13:24 Approved by: Brooke Livingston M.D. on 09/12/2021 at 13:32
[2021-09-12 13:59] LABS: COVID19 -Nasal RAPID Negative (Negative)
[2021-09-12 14:11] LABS: Troponin I < 0.012 ng/mL (0.01-0.034)
[2021-09-12] MEDS: ASPIRIN 81 MG CHEW TAB 324 MG PO (15:17)
[2021-09-12] MEDS: NITROGLYCERIN 0.4 MG SL TAB SL ×2 (15:17→15:53)
[2021-09-12 16:20] LABS: Troponin I < 0.012 ng/mL (0.01-0.034)
== END 2021-09-12 17:27 | disposition home or self-care (01) ==
PROVIDERS: Emergency Provider Emergency Medicine; PCP Student in an Organized Health Care Education/Training Program
DX: R07.89 Other chest pain (principal); R51.9 Headache, unspecified; I25.10 Atherosclerotic heart disease of native coronary artery without angina pectoris; I10 Essential (primary) hypertension; Z20.822 Contact with and (suspected) exposure to COVID-19
CPT/HCPCS: 36415; 70450; 71045; 71275; 80053; 82550; 82962; 83605; 83880; 84484; 85025; 85610; 87635; 93005; 99284; 99285; C9803

== ENCOUNTER 2021-09-14 08:20 | Observation (INO) | payer MEDICARE, OTHER, SELFPAY ==
[2020-12-18 15:59] VITALS: BMI 28.0
[2021-09-14] VITALS (33 sets, daily range): BP systolic 80–147; BP diastolic 46–70; PULSE 50–76; RESP 15–28; TEMP 36.2–36.8; O2SAT 92–100; BMI 27.2
--- NOTE | 2021-09-14 08:26 | DI.RAD.S_ITS ---
PROCEDURE: XR CHEST 1V INDICATIONS: chest pain TECHNIQUE: One view of the chest was acquired. COMPARISON: [facility], CR, XR CHEST 1V, 09/12/2021, 11:38. FINDINGS: Surgical changes and devices: None. Lungs and pleura: Lungs are clear. No pleural effusions or pneumothorax. Mediastinum: Mediastinal contours appear normal. Heart size is normal. Bones and chest wall: No suspicious bony lesions. Overlying soft tissues appear unremarkable. ACDF of the lower cervical spine. IMPRESSION: No acute cardiopulmonary abnormality. Dictated by: Obey Tejeda M.D. on 09/14/2021 at 7:57 Approved by: Obey Tejeda M.D. on 09/14/2021 at 7:57
--- NOTE | 2021-09-14 08:28 | ED_ITS ---
HPI - Chest Pain General Chief Complaint: Chest Pain Stated Complaint: Chest Pain Time Seen by Provider: 09/14/21 08:26 History of Present Illness HPI narrative: Patient is a 66-year-old male history of hypertension remote history of coronary artery disease without stenting or CABG presenting for the 2nd time this week with chest pain. He was seen evaluated here by myself 2 days ago chest pain. At that time he had cardiac workup 3- troponins cardio was consulted and set to discharge home. Presents today with crushing chest pain center of his chest radiating through to his back. He said yesterday he felt okay he still was little dizzy and lightheaded overall okay. His today chest discomfort is back. He received nitro aspirin and morphine with EMS. He is slightly better but pressure did drop slightly. He denies any shortness of breath. Related Data Home Medications Medication Instructions Recorded Confirmed amlodipine 10 mg tablet 10 mg PO DAILY 09/10/18 09/14/21 aspirin 81 mg tablet,delayed 81 mg PO DAILY 09/10/18 09/14/21 release cyanocobalamin (vitamin B-12) 1,000 mcg PO DAILY ##0 09/10/18 09/14/21 1,000 mcg tablet (Vitamin B-12) diphenhydramine 25 2 tab PO BEDTIME PRN Pain (Scale 09/10/18 09/14/21 mg-acetaminophen 500 mg tablet Score 1-3) (Tylenol PM Extra Strength) metformin 500 mg tablet 500 mg PO BID 09/10/18 09/14/21 multivitamin 1 tab PO DAILY 09/10/18 09/14/21 simvastatin 20 mg tablet 20 mg PO BEDTIME 09/10/18 09/14/21 tamsulosin 0.4 mg capsule 0.8 mg PO DAILY 09/10/18 09/14/21 telmisartan 80 1 tab PO DAILY 09/10/18 09/14/21 mg-hydrochlorothiazide 25 mg tablet duloxetine 30 mg capsule,delayed 30 mg PO DAILY 04/26/19 09/14/21 release fluoxetine 60 mg tablet 60 mg PO DAILY 12/18/20 09/14/21 olanzapine 20 mg tablet 20 mg PO BEDTIME 12/18/20 09/14/21 omeprazole 20 mg capsule,delayed 20 mg PO DAILY 12/18/20 09/14/21 release Previous Rx's Medication Instructions Recorded acetaminophen 325 mg tablet 975 mg PO Q8H PRN Pain (Scale 09/11/18 Score 4-6) #30 tabs Allergies Allergy/AdvReac Type Severity Reaction Status Date / Time NSAIDS (Non-Steroidal AdvReac Mild CAN TAKE, Verified 09/14/21 08:43 Anti-Inflamma BUT TRIES [NSAIDS (NON-STEROIDAL TO AVOID ANTI-INFLAMMA] R/T GASTRIC BYPASS Review of Systems Review of Systems Narrative: GENERAL: Denies chills, fatigue, malaise, fever, sweats, travel HEENT: Denies sinus pain, ear pain, sore throat, difficulty swallowing, neck pain RESPIRATORY: Denies dyspnea, cough, wheezing, hemoptysis, sputum. CARDIOVASCULAR: See HPI GASTROINTESTINAL: Denies nausea, vomiting, abdominal pain, diarrhea, constipation, melena. : Denies dysuria, frequency, incontinence, hematuria, urinary retention, flank pain. MUSCULOSKELETAL: Denies weakness, joint pain, or bony pain SKIN: No rash, no erythema, no pruritus NEUROLOGIC: Denies weakness, dizziness, headache, numbness, change in speech, confusion PSYCHIATRIC: No concerning psychosocial issues. 12 point review of systems is negative except for those stated above and HPI Patient History Medical History Degenerative disc disease History of bleeding ulcers HNP (herniated nucleus pulposus), lumbar HTN (hypertension) Hypertriglyceridemia Nephrolithiasis Non-insulin dependent type 2 diabetes mellitus Surgical History History of cervical spinal surgery History of cholecystectomy History of gastric bypass Status post lumbar surgery Family History Mother No known health problems Father No known health problems Social History household members: spouse and family Smoking Status: Current every day smoker alcohol intake: never Smoking Status: Current every day smoker tobacco type: cigarettes alcohol intake frequency: holidays/special occasions only Substance Use Type: does not use Exam Initial Vital Signs Initial Vital Signs: Vital Signs Temperature 98.2 F 09/14/21 08:15 Pulse Rate 61 09/14/21 08:15 Respiratory Rate 26 H 09/14/21 08:15 Blood Pressure 118/70 09/14/21 08:15 Pulse Oximetry 100 09/14/21 08:15 Oxygen Delivery Method 09/14/21 08:15 GENERAL: Alert 66-year-old male appears in mild distress HEENT: Head atraumatic,EOMI, pupils reactive, face symmetric, moist mucous membranes CARDIOVASCULAR: Regular rate and rhythm without murmurs, rubs or gallops. RESPIRATORY: Breath sounds equal bilaterally, no wheezes rales or rhonchi. ABDOMEN: Soft, nontender. Normoactive bowel sounds all 4 quadrants. No guarding or rebound. EXTREMITIES: Normal range of motion, no clubbing or edema. Neurovascularly intact NEUROLOGICAL: Alert and oriented x4.Normal gait and speech. SKIN: Warm, dry, no laceration, no petechiae, no rashes or lesions. Course Orders Ordered: ED Orders 09/14/21 08:25 Complete Blood Count AUTO DIFF Stat Comprehensive Metabolic Panel Stat Lipase Stat NT-proBNP (BNP-Adult 18+) Stat Partial Thromboplastin Time Stat Prothrombin Time INR Stat Troponin & CK Cardiac Panel Stat 09/14/21 08:26 XR chest 1V Stat EKG-12 Lead Stat 09/14/21 10:30 COVID19 -Nasal RAPID/Pre-Proc Stat Trop I [Troponin I] Stat Acetaminophen (Acetaminophen 325 Mg Tablet) 650 mg PO Q6HR DEANNE Amlodipine Besylate (Amlodipine 5 Mg Tablet) 10 mg PO DAILY DEANNE Al Hydrox/Mg Hydrox/Simethicone 20 ml/ Lidocaine HCl 15 ml 0 ml PO NOW ONE Stop: 09/14/21 16:13 Cyanocobalamin (Cyanocobalamin (Vitamin B-12) 500 Mcg Tablet) 1,000 mcg PO DAILY [facility] Dextrose (Dextrose 50 % In Water 25 Gm/50 Ml Syringe) 25 gm IV PRN PRN PRN Reason: Hypoglycemia Duloxetine HCl (Duloxetine 30 Mg Capsule) 30 mg PO DAILY DEANNE Fluoxetine HCl (Fluoxetine 20 Mg Capsule) 60 mg PO DAILY DEANNE Hydromorphone HCl (Hydromorphone 0.5 Mg Inj) 1 mg IV Q4H PRN PRN Reason: Breakthrough pain only (8-10) Insulin Human Lispro (Insulin Lispro 100 Unit/Ml 3ml Vial) 0 unit SUBCUT ACHS DEANNE; Protocol Naloxone HCl (Naloxone 0.4 Mg/Ml Vial) 0.1 mg IV Q2MIN PRN PRN Reason: Opiate Reversal Olanzapine (Olanzapine 2.5 Mg Tablet) 20 mg PO BEDTIME DEANNE Pantoprazole Sodium (Pantoprazole 40 Mg Vial) 40 mg IV BID DEANNE Tamsulosin HCl (Tamsulosin 0.4 Mg Capsule) 0.8 mg PO BEDTIME DEANNE Discontinued Medications Hydromorphone HCl (Hydromorphone 1 Mg Inj) 1 mg IV NOW ONE Stop: 09/14/21 09:28 Last Admin: 09/14/21 09:51 Dose: 1 mg Documented By: MLDmitri Hydromorphone HCl (Hydromorphone 0.5 Mg Inj) 0.5 mg IV NOW ONE Stop: 09/14/21 11:21 Last Admin: 09/14/21 12:18 Dose: 0.5 mg Documented By: KATARINA Hydromorphone HCl (Hydromorphone 0.5 Mg Inj) 1 mg IV NOW ONE Stop: 09/14/21 13:00 Last Admin: 09/14/21 13:07 Dose: 1 mg Documented By: KATARINA Sodium Chloride (Normal Saline 0.9%) 1,000 mls @ 150 mls/hr IV CONT DEANNE Last Admin: 09/14/21 09:11 Dose: 150 mls/hr Documented By: MLDmitri Ketorolac Tromethamine (Ketorolac 30 Mg/Ml Vial) 15 mg IV NOW ONE Stop: 09/14/21 09:04 Last Admin: 09/14/21 09:12 Dose: 15 mg Documented By: MLDmitri Nitroglycerin (Nitroglycerin 0.4 Mg Sl Tab) 0.4 mg SL [id number] PRN PRN Reason: Chest Pain Last Admin: 09/14/21 09:29 Dose: 0.4 mg Documented By: Admin: 09/14/21 08:32 Dose: 0.4 mg Documented By: KATARINA Pantoprazole Sodium (Pantoprazole 40 Mg Vial) 40 mg IV NOW ONE Stop: 09/14/21 08:40 Last Admin: 09/14/21 08:45 Dose: 40 mg Documented By: KATARINA Vital Signs Vital signs: Vital Signs - 8 hr 09/14/21 08:32 09/14/21 09:29 09/14/21 08:30 Pulse Rate 61 53 L 63 Respiratory Rate Blood Pressure 118/70 109/65 Pulse Oximetry 100 09/14/21 08:38 09/14/21 08:38 07/02/22 08:40 Pulse Rate 76 75 Respiratory Rate Blood Pressure 84/51 L Pulse Oximetry 100 100 09/14/21 08:40 09/14/21 08:45 09/14/21 08:45 Pulse Rate 68 Respiratory Rate Blood Pressure 80/50 L 95/50 L Pulse Oximetry 100 09/14/21 08:50 09/14/21 08:50 09/14/21 08:55 Pulse Rate 61 Respiratory Rate 18 Blood Pressure 104/55 L 92/54 L Pulse Oximetry 100 09/14/21 08:55 09/14/21 09:00 09/14/21 09:00 Pulse Rate 60 60 Respiratory Rate 20 19 Blood Pressure 106/56 L Pulse Oximetry 100 100 09/14/21 09:05 09/14/21 09:05 09/14/21 09:26 Pulse Rate 59 L Respiratory Rate 23 Blood Pressure 108/56 L 109/65 Pulse Oximetry 100 09/14/21 09:26 09/14/21 09:30 09/14/21 09:30 Pulse Rate 56 L 56 L Respiratory Rate 28 H 26 H Blood Pressure 102/65 Pulse Oximetry 100 94 09/14/21 09:31 09/14/21 09:31 09/14/21 09:35 Pulse Rate 60 Respiratory Rate 24 Blood Pressure 98/58 L 92/50 L Pulse Oximetry 98 09/14/21 09:35 09/14/21 09:40 09/14/21 09:40 Pulse Rate 69 63 Respiratory Rate 22 22 Blood Pressure 96/54 L Pulse Oximetry 100 100 09/14/21 09:45 09/14/21 09:45 09/14/21 09:50 Pulse Rate 55 L Respiratory Rate 20 Blood Pressure 109/56 L 110/56 L Pulse Oximetry 100 09/14/21 09:50 09/14/21 10:00 09/14/21 10:00 Pulse Rate 54 L 52 L Respiratory Rate 20 20 Blood Pressure 114/57 L Pulse Oximetry 100 100 09/14/21 10:18 09/14/21 10:18 09/14/21 10:30 Pulse Rate 54 L Respiratory Rate 18 Blood Pressure 124/57 L 121/61 Pulse Oximetry 92 09/14/21 10:30 09/14/21 11:00 09/14/21 11:00 Pulse Rate 56 L 51 L Respiratory Rate 24 18 Blood Pressure 132/63 Pulse Oximetry 100 100 09/14/21 11:30 09/14/21 11:30 09/14/21 12:00 Pulse Rate 50 L 57 L Respiratory Rate 19 22 Blood Pressure 139/64 Pulse Oximetry 100 100 09/14/21 12:01 09/14/21 12:01 09/14/21 12:30 Pulse Rate 53 L Respiratory Rate 15 Blood Pressure 146/65 H 127/69 Pulse Oximetry 100 09/14/21 12:30 Pulse Rate 52 L Respiratory Rate 16 Blood Pressure Pulse Oximetry 100 MDM - Chest Pain Lab Data Result diagrams: 09/14/21 08:25 09/14/21 08:25 Labs: Lab Results 09/14/21 09/14/21 09/14/21 Range/Units 08:25 08:25 08:25 WBC 8.3 (4.5-11.0) X10^3/uL RBC 4.32 L (4.5-5.9) X10^6/uL Hgb 14.0 (13.5-17.5) g/dL Hct 40.4 L (41-53) % MCV 93.5 (80-100) fL MCH 32.5 (26-34) PG MCHC 34.7 (30-36) % RDW 15.0 H (11.6-14.8) % Plt Count 249 (150-400) X10^3/uL Neut % (Auto) 70.7 (50-75) % Lymph % (Auto) 22.4 L (25-40) % [place] % (Auto) 6.0 (3-14) % Eos % (Auto) 0.5 L (2-4) % Baso % (Auto) 0.4 (0-2) % Neut # (Auto) 5800 (5836-4560) /uL Lymph # (Auto) 1800 (6622-6441) /uL [place] # (Auto) 500 (0-900) /uL Eos # (Auto) 0 (0-450) /uL Baso # (Auto) 0 (0-100) /uL PT 12.3 (10.1-12.7) SECONDS INR 1.1 (0.9-1.3) APTT 29 (26.4-36.2) SECONDS Sodium 139 (137-145) mmol/L Potassium 4.2 (3.4-5.1) mmol/L Chloride 110 H (98-107) mmol/L Carbon Dioxide 20 L (22-32) mmol/L BUN 16 (9-20) mg/dL Creatinine 0.79 (0.66-1.25) mg/dL Estimated GFR > 60 (>60) mL/min BUN/Creatinine Ratio 20.3 (6-22) Glucose 91 (80-110) mg/dL Calcium 9.2 (8.4-10.2) mg/dL Total Bilirubin 0.9 (0.2-1.3) mg/dL AST 25 (17-59) IU/L ALT 17 (<50) IU/L Alkaline Phosphatase 95 (38-126) U/L Total Creatine Kinase 47 L (55-170) U/L CK-MB (CK-2) TNP CK-MB (CK-2) Rel Index TNP Troponin I < 0.012 (0.01-0.034) ng/mL NT-Pro-B Natriuret Pep 206 H (<125) pg/mL Total Protein 7.0 (6.3-8.2) g/dL Albumin 4.0 (3.5-5.0) g/dL Globulin 3.0 (1.7-4.1) g/dL Albumin/Globulin Ratio 1.3 (1.0-2.8) Lipase 40 (23-300) U/L SARS-CoV-2 (PCR) (Negative) 09/14/21 09/14/21 Range/Units 10:30 10:30 WBC (4.5-11.0) X10^3/uL RBC (4.5-5.9) X10^6/uL Hgb (13.5-17.5) g/dL Hct (41-53) % MCV (80-100) fL MCH (26-34) PG MCHC (30-36) % RDW (11.6-14.8) % Plt Count (150-400) X10^3/uL Neut % (Auto) (50-75) % Lymph % (Auto) (25-40) % [place] % (Auto) (3-14) % Eos % (Auto) (2-4) % Baso % (Auto) (0-2) % Neut # (Auto) (9805-6900) /uL Lymph # (Auto) (0283-1866) /uL [place] # (Auto) (0-900) /uL Eos # (Auto) (0-450) /uL Baso # (Auto) (0-100) /uL PT (10.1-12.7) SECONDS INR (0.9-1.3) APTT (26.4-36.2) SECONDS Sodium (137-145) mmol/L Potassium (3.4-5.1) mmol/L Chloride (98-107) mmol/L Carbon Dioxide (22-32) mmol/L BUN (9-20) mg/dL Creatinine (0.66-1.25) mg/dL Estimated GFR (>60) mL/min BUN/Creatinine Ratio (6-22) Glucose (80-110) mg/dL Calcium (8.4-10.2) mg/dL Total Bilirubin (0.2-1.3) mg/dL AST (17-59) IU/L ALT (<50) IU/L Alkaline Phosphatase (38-126) U/L Total Creatine Kinase (55-170) U/L CK-MB (CK-2) CK-MB (CK-2) Rel Index Troponin I < 0.012 (0.01-0.034) ng/mL NT-Pro-B Natriuret Pep (<125) pg/mL Total Protein (6.3-8.2) g/dL Albumin (3.5-5.0) g/dL Globulin (1.7-4.1) g/dL Albumin/Globulin Ratio (1.0-2.8) Lipase (23-300) U/L SARS-CoV-2 (PCR) Negative (Negative) Imaging Data Chest x-ray: Radiologist's Impression: Signed Patient: Kristian Yin MR#: [id number] : 1955 Acct:[id number] Age/Sex: 66 / M Date of Service: 09/14/21 Loc: ED Accession Number: [id number] ?? Procedure: XR chest 1V Ordering Provider: Sofia Vences D.O. PROCEDURE:? XR CHEST 1V ? INDICATIONS:? chest pain ? TECHNIQUE:? One view of the chest was acquired.? ? COMPARISON:? [facility], CR, XR CHEST 1V, 09/12/2021, 11:38. ? FINDINGS:? ? Surgical changes and devices:? None.? ? Lungs and pleura:? Lungs are clear.? No pleural effusions or pneumothorax.? ? Mediastinum:? Mediastinal contours appear normal.? Heart size is normal.? ? Bones and chest wall:? No suspicious bony lesions.? Overlying soft tissues appear unremarkable.? ACDF of the lower cervical spine. ? IMPRESSION:? No acute cardiopulmonary abnormality. ? ? ? Dictated by: Obey Teejda M.D. on 09/14/2021 at 7:57 ? ? ECG Data Interpretation: EKG 1. Normal sinus rhythm rate 62 WV interval 156 QRS [address] changes no T-wave inversions similar to previous EKG EKG 2. Normal sinus rhythm rate 49 WV interval [address] changes similar to previous MDM Narrative Medical decision making narrative: The patient has concerning symptoms for cardiac he was seen evaluated here 2 days before with 3- troponins negative workup and Cardiology consult. Patient rest today with same the. He is given nitro which actually does decrease his pressure and only helps briefly and a little with his pain. He is given Protonix Toradol and opiate medications for pain control and still having discomfort. Again he has 2- troponins will EKG changes. Previously had a CT angio of his chest which did not show any dissection. He currently has no abdominal pain pain is similar to previous. He had a stress test December [address] Huertas, cardiology consultation states unlikely to be cardiac. 2- workups are overall reassuring. Unlikely to be acute coronary syndrome. Can have outpatient workup verses admission. May or may not need repeat stress testing. Dr. Harmon updated on patient's symptoms test results and happily accepts patient for observation Discharge Plan Departure Patient Disposition: Admitted as Observation Clinical Impression: Atypical chest pain Admit Date/Time: 09/14/21 12:51 Admit Provider: Buck Harmon
[2021-09-14] MEDS: NITROGLYCERIN 0.4 MG SL TAB SL ×2 (08:32→09:29)
[2021-09-14] MEDS: PANTOPRAZOLE 40 MG VIAL IV ×3 (08:45→20:23)
[2021-09-14 08:48] LABS: Add Manual Diff / Slide Review NO; Basophils Absolute Auto 0 /uL (0-100); Basophils Percent Auto 0.4 % (0-2); Eosinophils Absolute Auto 0 /uL (0-450); Eosinophils Percent Auto 0.5 % (2-4); Hematocrit 40.4 % (41-53); Lymphocytes Absolute Auto 1800 /uL (1100-4500); Lymphocytes Percent Auto 22.4 % (25-40); Mean Corpuscular HGB Conc 34.7 % (30-36); Mean Corpuscular Hemoglobin 32.5 PG (26-34); Mean Corpuscular Volume 93.5 fL (80-100); Monocytes Absolute Auto 500 /uL (0-900); Neutrophils Absolute Auto 5800 /uL (1500-7000); Neutrophils Percent Auto 70.7 % (50-75); Platelet Count 249 X10^3/uL (150-400); Red Blood Cell Count 4.32 X10^6/uL (4.5-5.9); White Blood Cell Count 8.3 X10^3/uL (4.5-11.0)
[2021-09-14 08:53] LABS: INR 1.1 (0.9-1.3); Prothrombin Time 12.3 SECONDS (10.1-12.7)
[2021-09-14 08:55] LABS: PTT Partial Thromboplastin Tim 29 SECONDS (26.4-36.2)
[2021-09-14 09:06] LABS: Alanine Aminotransferase 17 IU/L (<50); Albumin Globulin Ratio 1.3 (1.0-2.8); Alkaline Phosphatase 95 U/L (38-126); Aspartate Aminotransferase 25 IU/L (17-59); BUN Creatinine Ratio 20.3 (6-22); Bilirubin Total 0.9 mg/dL (0.2-1.3); Blood Urea Nitrogen 16 mg/dL (9-20); Calcium 9.2 mg/dL (8.4-10.2); Carbon Dioxide 20 mmol/L (22-32); Chloride 110 mmol/L (98-107); Creatine Kinase 47 U/L (55-170); Estimated Glomerular Filt Rate > 60 mL/min (>60); Glucose 91 mg/dL (80-110); HEMOLYSIS 49 (0-50); Lipase 40 U/L (23-300); Potassium 4.2 mmol/L (3.4-5.1); Sodium 139 mmol/L (137-145)
[2021-09-14] MEDS: SODIUM CHLORIDE 0.9% 1,000 ML 150 ML IV (09:11)
[2021-09-14] MEDS: KETOROLAC 30 MG/ML VIAL 15 MG IV (09:12)
--- NOTE | 2021-09-14 09:12 | PC.NURSE ---
No relief with first nitro.
[2021-09-14 09:18] LABS: NT-proBNP (BNP-Adult 18+) 206 pg/mL (<125); Troponin I < 0.012 ng/mL (0.01-0.034)
[2021-09-14] MEDS: HYDROMORPHONE 1 MG INJ IV (09:51)
[2021-09-14 11:02] LABS: COVID19 -Nasal RAPID Negative (Negative)
[2021-09-14 11:05] LABS: Troponin I < 0.012 ng/mL (0.01-0.034)
[2021-09-14] MEDS: HYDROMORPHONE 0.5 MG INJ IV (12:18)
[2021-09-14] MEDS: HYDROMORPHONE 0.5 MG INJ 1 MG IV ×3 (13:07→20:24)
--- NOTE | 2021-09-14 14:55 | PC.NURSE ---
pt admitted, sitting in chair. pt reports dizziness and mid chest pain 8 out of 10 radiating to B/L scapulas. Tele Sr with PAC
[2021-09-14] MEDS: MAG HYDROX/ALUMINUM/SIMETH SUS 20 ML, LIDOCAINE VISCOUS 2% 15 ML PO (17:43)
[2021-09-14] MEDS: ACETAMINOPHEN 325 MG TABLET 650 MG PO (17:47)
--- NOTE | 2021-09-14 18:28 | PM.HP.1 ---
History of Present Illness History of Present Illness Date Patient Seen: 09/14/21 Time Patient Seen: 15:00 Chief complaint: Epigastric Pain Narrative: Mr. Yin is a 66-year-old male with past medical history of gastric bypass in 2003 with revision in 2015, non bleeding gastric ulcer in early 2021, GERD, hiatal hernia, hypertension, type 2 diabetes, depression and current 60 pack-year smoker who presents with severe epigastric and chest pain for past 2 weeks. Patient states he had similar pain in December 2020 and had cardiac workup which was negative including nuclear med stress test, multiple troponins and echo. He then had an EGD in early 2021 which showed nonbleeding gastric ulcer and has been on omeprazole. He is due for repeat EGD with colonoscopy on October 14, 2021. Last screening colonoscopy 5 years ago and he is due. Describes the pain as heavy, constant and better when leaning forward and worse when lying back. He also notes black stools most recently 2 days ago without bright red blood. Denies nausea vomiting, headache, abdominal pain, shortness of breath or cough. In the ED cardiology was called by ED provider who based on previous cardiac workup, negative troponins x2 and no EKG changes did not feel this was cardiac origin. Recommend admission for further workup of other etiology. CTA chest negative for dissection or thoracic aneurysm, PE, pancreatitis or any other abnormality. Patient History Medical History Degenerative disc disease History of bleeding ulcers HNP (herniated nucleus pulposus), lumbar HTN (hypertension) Hypertriglyceridemia Nephrolithiasis Non-insulin dependent type 2 diabetes mellitus Surgical History History of cervical spinal surgery History of cholecystectomy History of gastric bypass Status post lumbar surgery Family & Social History Family History Mother No known health problems Father No known health problems Social History: household members spouse,family Prior Living Arrangements House Safety & Behavioral: Feels Safe in Current Yes Environment Been Physically Hurt or No Threatened By a Person Tobacco & Substance use: Tobacco type cigarettes Smoking Status Current every day smoker Smoking packs per day 0.5 alcohol intake never alcohol intake frequency holiday/special occasion Substance Use Type does not use Meds Home Medications and Allergies Home Medications Medication Instructions Recorded Confirmed Type amlodipine 10 mg tablet 10 mg PO DAILY 09/10/18 09/14/21 History aspirin 81 mg tablet,delayed 81 mg PO DAILY 09/10/18 09/14/21 History release cyanocobalamin (vitamin B-12) 1,000 mcg PO DAILY ##0 09/10/18 09/14/21 History 1,000 mcg tablet (Vitamin B-12) diphenhydramine 25 2 tab PO BEDTIME PRN Pain (Scale 09/10/18 09/14/21 History mg-acetaminophen 500 mg tablet Score 1-3) (Tylenol PM Extra Strength) metformin 500 mg tablet 500 mg PO BID 09/10/18 09/14/21 History multivitamin 1 tab PO DAILY 09/10/18 09/14/21 History simvastatin 20 mg tablet 20 mg PO BEDTIME 09/10/18 09/14/21 History tamsulosin 0.4 mg capsule 0.8 mg PO DAILY 09/10/18 09/14/21 History telmisartan 80 1 tab PO DAILY 09/10/18 09/14/21 History mg-hydrochlorothiazide 25 mg tablet acetaminophen 325 mg tablet 975 mg PO Q8H PRN Pain (Scale 09/11/18 09/14/21 Rx Score 4-6) #30 tabs duloxetine 30 mg capsule,delayed 30 mg PO DAILY 04/26/19 09/14/21 History release fluoxetine 60 mg tablet 60 mg PO DAILY 12/18/20 09/14/21 History olanzapine 20 mg tablet 20 mg PO BEDTIME 12/18/20 09/14/21 History omeprazole 20 mg capsule,delayed 20 mg PO DAILY 12/18/20 09/14/21 History release Allergies Allergy/AdvReac Type Severity Reaction Status Date / Time NSAIDS (Non-Steroidal AdvReac Mild CAN TAKE, Verified 09/14/21 08:43 Anti-Inflamma BUT TRIES [NSAIDS (NON-STEROIDAL TO AVOID ANTI-INFLAMMA] R/T GASTRIC BYPASS Review of Systems Review of Systems Narrative: All 14 point systems reviewed with the patient and are negative except otherwise documented. Exam Vital Signs (past 8 hours): - 09/14/21 10:30 09/14/21 10:30 09/14/21 11:00 Temperature Pulse Rate 56 L Respiratory Rate 24 Blood Pressure 121/61 132/63 Pulse Oximetry 100 Oxygen Flow Rate 09/14/21 11:00 09/14/21 11:30 09/14/21 11:30 Temperature Pulse Rate 51 L 50 L Respiratory Rate 18 19 Blood Pressure 139/64 Pulse Oximetry 100 100 Oxygen Flow Rate 09/14/21 12:00 09/14/21 12:01 09/14/21 12:01 Temperature Pulse Rate 57 L 53 L Respiratory Rate 22 15 Blood Pressure 146/65 H Pulse Oximetry 100 100 Oxygen Flow Rate 09/14/21 12:30 09/14/21 12:30 09/14/21 13:00 Temperature Pulse Rate 52 L Respiratory Rate 16 Blood Pressure 127/69 147/65 H Pulse Oximetry 100 Oxygen Flow Rate 09/14/21 13:00 09/14/21 13:30 09/14/21 13:30 Temperature Pulse Rate 60 55 L Respiratory Rate 19 16 Blood Pressure 136/63 Pulse Oximetry 100 100 Oxygen Flow Rate 09/14/21 14:15 09/14/21 17:58 Temperature 97.3 F L 97.1 F L Pulse Rate 72 68 Respiratory Rate 16 19 Blood Pressure 136/59 L 86/46 L Pulse Oximetry 100 98 Oxygen Flow Rate 0 0 Oxygen Delivery Method Room Air Oxygen Flow Rate 0 Narrative Exam Narrative: General:? Patient is well developed and well nourished, in no distress at this time. HEENT:? Normocephalic, atraumatic, extraocular muscles intact, oral pharynx is clear and mucous membranes are moist. Neck: supple and symmetric, trachea is midline, no cervical adenopathy. Negative for JVD Chest:? Normal AP diameter and contour without kyphoscoliosis, no tachypnea, equal chest rise bilaterally. Lungs:? CTA b/l no wheezing rhonchi or rales. Cardio:?RRR no m/r/g. Abdomen: Epigastric tenderness to palpation. Musculoskeletal:? Muscle strength and tone are equal within normal limits, no deformity. Extremities: No edema or joint effusions. No cyanosis or clubbing. Skin:? Warm to touch,dry and intact without rashes, ulcerations or petechiae.? Neuro:? Alert and orientated x3,? sensation to touch intact in all extremities, no gross deficits noted of cranial nerves. Psych:? Patient has a well-kept appearance, appropriate affect, mental status attitude thought context and judgment are appropriate for age. Objective Labs Result Diagrams: 09/14/21 08:25 09/14/21 08:25 Labs: Laboratory Results - last 24 hr 09/14/21 09/14/21 09/14/21 08:25 08:25 08:25 WBC 8.3 RBC 4.32 L Hgb 14.0 Hct 40.4 L MCV 93.5 MCH 32.5 MCHC 34.7 RDW 15.0 H Plt Count 249 Neut % (Auto) 70.7 Lymph % (Auto) 22.4 L [place] % (Auto) 6.0 Eos % (Auto) 0.5 L Baso % (Auto) 0.4 Neut # (Auto) 5800 Lymph # (Auto) 1800 [place] # (Auto) 500 Eos # (Auto) 0 Baso # (Auto) 0 PT 12.3 INR 1.1 APTT 29 Sodium 139 Potassium 4.2 Chloride 110 H Carbon Dioxide 20 L BUN 16 Creatinine 0.79 Estimated GFR > 60 BUN/Creatinine Ratio 20.3 Glucose 91 Calcium 9.2 Total Bilirubin 0.9 AST 25 ALT 17 Alkaline Phosphatase 95 Total Creatine Kinase 47 L CK-MB (CK-2) TNP CK-MB (CK-2) Rel Index TNP Troponin I < 0.012 NT-Pro-B Natriuret Pep 206 H Total Protein 7.0 Albumin 4.0 Globulin 3.0 Albumin/Globulin Ratio 1.3 Lipase 40 SARS-CoV-2 (PCR) 09/14/21 09/14/21 10:30 10:30 WBC RBC Hgb Hct MCV MCH MCHC RDW Plt Count Neut % (Auto) Lymph % (Auto) [place] % (Auto) Eos % (Auto) Baso % (Auto) Neut # (Auto) Lymph # (Auto) [place] # (Auto) Eos # (Auto) Baso # (Auto) PT INR APTT Sodium Potassium Chloride Carbon Dioxide BUN Creatinine Estimated GFR BUN/Creatinine Ratio Glucose Calcium Total Bilirubin AST ALT Alkaline Phosphatase Total Creatine Kinase CK-MB (CK-2) CK-MB (CK-2) Rel Index Troponin I < 0.012 NT-Pro-B Natriuret Pep Total Protein Albumin Globulin Albumin/Globulin Ratio Lipase SARS-CoV-2 (PCR) Negative Assessment & Plan Assessment & Plan narrative: Mr. Yin is a 66-year-old male with past medical history of gastric bypass in 2004 with revision in 2016, non bleeding gastric ulcer in early 2021, GERD, hiatal hernia, hypertension, type 2 diabetes, depression and current 60 pack-year smoker who presents with severe epigastric and chest pain for past 2 weeks. # epigastric and chest pain, active present on admission. -patient recently cardiac workup in December 2020 with normal Lexiscan stress test, echo, negative troponins, normal ECG. Troponins negative x2 today and without ECG changes. -CTA chest in ED negative for PE, aneurysm or dissection -I feel etiology is more likely PUD given patient had gastric ulcer a few months ago confirmed by EGD, notes ongoing melena and has a history of gastric bypass, hiatal hernia and chronic GERD. -start PPI IV 40 b.i.d. -Dr. Ferrera general surgery consulted for EGD, will take for scope tomorrow -NPO at midnight -abdominal ultrasound to rule out AAA as patient has risk factors (over 65 years old, chronic smoker) -if EGD negative with intermittent nature of chest pain and better with leaning forward may need to consider pericarditis, will order CRP and ESR # melena, active present on admission. -patient notes black stool for ?months? and most recently 2 days ago, no hematochezia -hold home aspirin for now -ppi as above -EGD as above # hypertension, chronic present on admission -continue home amlodipine, hold home telmisartan-hydrochlorothiazide as non formulary # type 2 diabetes, chronic present on admission -hold home metformin, sliding scale insulin ordered # depression, chronic present on admission -continue home duloxetine and fluoxetine daily Code status is full code Proxy is Cecy his I have reviewed home meds and used all available resources to reconcile the home meds. Time Spent With Patient Critical Care time: I spent a total of [] minutes of critical care time on this patient's care today; this time is exclusive of procedural time. Quality VTE Deep Vein Thrombosis/Pulmonary Embolism Present on Admission: No
[2021-09-14] MEDS: OLANZapine 2.5 MG TABLET 20 MG PO (20:25)
[2021-09-14] MEDS: TAMSULOSIN 0.4 MG CAPSULE 0.8 MG PO (20:25)
[2021-09-15 00:15] VITALS: BP 159/59; PULSE 67; RESP 18; TEMP 36.1; O2SAT 99
[2021-09-15] MEDS: HYDROMORPHONE 0.5 MG INJ 1 MG IV ×6 (00:18→21:55)
[2021-09-15] MEDS: ACETAMINOPHEN 325 MG TABLET 650 MG PO ×4 (00:18→18:10)
[2021-09-15 06:00] VITALS: BP 115/47; PULSE 78; RESP 18; TEMP 36.9; O2SAT 98
[2021-09-15 06:28] LABS: Add Manual Diff / Slide Review NO; Basophils Absolute Auto 0 /uL (0-100); Basophils Percent Auto 0.3 % (0-2); Eosinophils Absolute Auto 100 /uL (0-450); Eosinophils Percent Auto 0.9 % (2-4); Hematocrit 39.1 % (41-53); Hemoglobin 13.4 g/dL (13.5-17.5); Lymphocytes Absolute Auto 2000 /uL (1100-4500); Lymphocytes Percent Auto 22.5 % (25-40); Mean Corpuscular HGB Conc 34.3 % (30-36); Mean Corpuscular Hemoglobin 32.2 PG (26-34); Mean Corpuscular Volume 93.8 fL (80-100); Monocytes Absolute Auto 500 /uL (0-900); Monocytes Percent Auto 5.5 % (3-14); Neutrophils Absolute Auto 6200 /uL (1500-7000); Neutrophils Percent Auto 70.8 % (50-75); Platelet Count 216 X10^3/uL (150-400); Red Blood Cell Count 4.17 X10^6/uL (4.5-5.9); Red Cell Distribution Width 15.3 % (11.6-14.8); White Blood Cell Count 8.8 X10^3/uL (4.5-11.0)
[2021-09-15 06:39] LABS: C-Reactive Protein Quant 1.3 mg/dL (<1.0)
[2021-09-15 06:40] LABS: BUN Creatinine Ratio 28.3 (6-22); Blood Urea Nitrogen 26 mg/dL (9-20); Calcium 8.6 mg/dL (8.4-10.2); Carbon Dioxide 20 mmol/L (22-32); Chloride 110 mmol/L (98-107); Estimated Glomerular Filt Rate > 60 mL/min (>60); Glucose 95 mg/dL (80-110); HEMOLYSIS < 15 (0-50); Magnesium 1.7 mg/dL (1.6-2.3); Potassium 4.2 mmol/L (3.4-5.1); Sodium 137 mmol/L (137-145)
[2021-09-15 07:14] LABS: Erythrocyte Sedimentation Rate 7 MM/HR (0-15)
[2021-09-15 07:23] LABS: Thyroid Stimulating Hormone 1.27 uIU/mL (0.47-4.68)
--- NOTE | 2021-09-15 07:52 | P.PN_ITS ---
Subjective Subjective Date Patient Seen: 09/15/21 Time Patient Seen: 12:00 Interval history: Patient sitting up eating food and states he continues to have epigastric/chest pain constantly at 7/10 before Dilaudid and 4/10 afterward. Requesting nicotine patch. Exam Vital Signs (past 8 hours): - 09/15/21 00:15 09/15/21 06:00 Temperature 96.9 F L 98.5 F Pulse Rate 67 78 Respiratory Rate 18 18 Blood Pressure 159/59 H 115/47 L Pulse Oximetry 99 98 Oxygen Flow Rate 0 0 Oxygen Delivery Method Room Air Oxygen Flow Rate 0 Narrative Exam Narrative: General:? Patient is well developed and well nourished, in no distress at this time. HEENT:? Normocephalic, atraumatic, extraocular muscles intact, oral pharynx is clear and mucous membranes are moist. Neck: supple and symmetric, trachea is midline, no cervical adenopathy. Negative for JVD Chest:? Normal AP diameter and contour without kyphoscoliosis, no tachypnea, equal chest rise bilaterally. Mild pain to palpation of the chest and sternum. Lungs:? CTA b/l no wheezing rhonchi or rales. Cardio:?RRR no m/r/g. Abdomen: Epigastric tenderness to palpation. Musculoskeletal:? Muscle strength and tone are equal within normal limits, no deformity. Extremities: No edema or joint effusions. No cyanosis or clubbing. Skin:? Warm to touch,dry and intact without rashes, ulcerations or petechiae.? Neuro:? Alert and orientated x3,? sensation to touch intact in all extremities, no gross deficits noted of cranial nerves. Psych:? Patient has a well-kept appearance, appropriate affect, mental status attitude thought context and judgment are appropriate for age. Objective Labs Result Diagrams: 09/15/21 05:45 09/15/21 05:45 Labs: Laboratory Results - last 24 hr 09/14/21 09/14/21 09/14/21 08:25 08:25 08:25 WBC 8.3 RBC 4.32 L Hgb 14.0 Hct 40.4 L MCV 93.5 MCH 32.5 MCHC 34.7 RDW 15.0 H Plt Count 249 Neut % (Auto) 70.7 Lymph % (Auto) 22.4 L [place] % (Auto) 6.0 Eos % (Auto) 0.5 L Baso % (Auto) 0.4 Neut # (Auto) 5800 Lymph # (Auto) 1800 [place] # (Auto) 500 Eos # (Auto) 0 Baso # (Auto) 0 ESR PT 12.3 INR 1.1 APTT 29 Sodium 139 Potassium 4.2 Chloride 110 H Carbon Dioxide 20 L BUN 16 Creatinine 0.79 Estimated GFR > 60 BUN/Creatinine Ratio 20.3 Glucose 91 Calcium 9.2 Magnesium Total Bilirubin 0.9 AST 25 ALT 17 Alkaline Phosphatase 95 Total Creatine Kinase 47 L CK-MB (CK-2) TNP CK-MB (CK-2) Rel Index TNP Troponin I < 0.012 C-Reactive Protein NT-Pro-B Natriuret Pep 206 H Total Protein 7.0 Albumin 4.0 Globulin 3.0 Albumin/Globulin Ratio 1.3 Lipase 40 TSH SARS-CoV-2 (PCR) Blood Type Antibody Screen 09/14/21 09/14/21 09/14/21 10:30 10:30 19:36 WBC RBC Hgb Hct MCV MCH MCHC RDW Plt Count Neut % (Auto) Lymph % (Auto) [place] % (Auto) Eos % (Auto) Baso % (Auto) Neut # (Auto) Lymph # (Auto) [place] # (Auto) Eos # (Auto) Baso # (Auto) ESR PT INR APTT Sodium Potassium Chloride Carbon Dioxide BUN Creatinine Estimated GFR BUN/Creatinine Ratio Glucose Calcium Magnesium Total Bilirubin AST ALT Alkaline Phosphatase Total Creatine Kinase CK-MB (CK-2) CK-MB (CK-2) Rel Index Troponin I < 0.012 C-Reactive Protein NT-Pro-B Natriuret Pep Total Protein Albumin Globulin Albumin/Globulin Ratio Lipase TSH SARS-CoV-2 (PCR) Negative Blood Type O Positive Antibody Screen Negative 09/15/21 09/15/21 09/15/21 05:45 05:45 05:45 WBC 8.8 RBC 4.17 L Hgb 13.4 L Hct 39.1 L MCV 93.8 MCH 32.2 MCHC 34.3 RDW 15.3 H Plt Count 216 Neut % (Auto) 70.8 Lymph % (Auto) 22.5 L [place] % (Auto) 5.5 Eos % (Auto) 0.9 L Baso % (Auto) 0.3 Neut # (Auto) 6200 Lymph # (Auto) 2000 [place] # (Auto) 500 Eos # (Auto) 100 Baso # (Auto) 0 ESR PT INR APTT Sodium 137 Potassium 4.2 Chloride 110 H Carbon Dioxide 20 L BUN 26 H Creatinine 0.92 Estimated GFR > 60 BUN/Creatinine Ratio 28.3 H Glucose 95 Calcium 8.6 Magnesium 1.7 Total Bilirubin AST ALT Alkaline Phosphatase Total Creatine Kinase CK-MB (CK-2) CK-MB (CK-2) Rel Index Troponin I C-Reactive Protein NT-Pro-B Natriuret Pep Total Protein Albumin Globulin Albumin/Globulin Ratio Lipase TSH 1.27 SARS-CoV-2 (PCR) Blood Type Antibody Screen 09/15/21 09/15/21 05:45 05:45 WBC RBC Hgb Hct MCV MCH MCHC RDW Plt Count Neut % (Auto) Lymph % (Auto) [place] % (Auto) Eos % (Auto) Baso % (Auto) Neut # (Auto) Lymph # (Auto) [place] # (Auto) Eos # (Auto) Baso # (Auto) ESR 7 PT INR APTT Sodium Potassium Chloride Carbon Dioxide BUN Creatinine Estimated GFR BUN/Creatinine Ratio Glucose Calcium Magnesium Total Bilirubin AST ALT Alkaline Phosphatase Total Creatine Kinase CK-MB (CK-2) CK-MB (CK-2) Rel Index Troponin I C-Reactive Protein 1.3 H NT-Pro-B Natriuret Pep Total Protein Albumin Globulin Albumin/Globulin Ratio Lipase TSH SARS-CoV-2 (PCR) Blood Type Antibody Screen [facility] Medical History Degenerative disc disease History of bleeding ulcers HNP (herniated nucleus pulposus), lumbar HTN (hypertension) Hypertriglyceridemia Nephrolithiasis Non-insulin dependent type 2 diabetes mellitus Surgical History History of cervical spinal surgery History of cholecystectomy History of gastric bypass Status post lumbar surgery Family History Mother No known health problems Father No known health problems Social History household members: spouse and children Smoking Status: Current every day smoker alcohol intake: never Assessment & Plan Assessment & Plan narrative: Mr. Yin is a 66-year-old male with past medical history of gastric bypass in 2004 with revision in 2016, non bleeding gastric ulcer in early 2021, GERD, hiatal hernia, hypertension, type 2 diabetes, depression and current 60 pack- year smoker who presents with severe epigastric and chest pain for past 2 weeks. # epigastric and chest pain, active present on admission. -patient recently cardiac workup in December 2020 with normal Lexiscan stress test, echo, negative troponins, normal ECG. Troponins negative x2 today and without ECG changes. -CTA chest in ED negative for PE, aneurysm or dissection -I feel etiology is more likely PUD given patient had gastric ulcer a few months ago confirmed by EGD, notes ongoing melena and has a history of gastric bypass, hiatal hernia and chronic GERD. -PPI IV 40 b.i.d. -Dr. Ferrera general surgery consulted for EGD, will take for scope 09/16 -NPO at midnight -abdominal ultrasound to rule out AAA as patient has risk factors (over 65 years old, chronic smoker) -if EGD negative with intermittent nature of chest pain and better with leaning forward may need to consider pericarditis, will order CRP and ESR # melena, active present on admission. -patient notes black stool for ?months? and most recently 2 days ago, no hematochezia -hold home aspirin for now -ppi as above -EGD as above # hypertension, chronic present on admission -continue home amlodipine, hold home telmisartan-hydrochlorothiazide as non formulary # type 2 diabetes, chronic present on admission -hold home metformin, sliding scale insulin ordered # depression, chronic present on admission -continue home duloxetine and fluoxetine daily # chronic smoking -nicotine patch PRN Code status is full code Proxy is Cecy his I have reviewed home meds and used all available resources to reconcile the home meds. Time Spent With Patient Critical Care time: I spent a total of [] minutes of critical care time on this patient's care today; this time is exclusive of procedural time. Quality VTE Deep Vein Thrombosis/Pulmonary Embolism Present on Admission: No
--- NOTE | 2021-09-15 08:01 | PC.NURSE ---
Pt alert and oriented. Offers no overt c/o. Up easily to BR steady gait.
--- NOTE | 2021-09-15 08:53 | CM.DANOTE ---
DCP Note: Payor: [employer] PCP: Shin José MD Pt is a 66 y.o. M who presented to the ED for chest pain. Pt has a PMH of gastric bypass, gastric ulcers, GERD, hiatal hernia, HTN, Type 2 DM, depression and is a current smoker. Pt is scheduled to undergo a scope procedure today under Dr. Ferrera in general surgery. Pt is currently NPO. DCP met with pt bedside this morning. Pt was in bed sleeping. DCP introduced herself and role. Pt states that he currently lives with his and daughter in a home on [address]. Pt states that he is independent at baseline and currently still drives. Pt denies any DME use. Pt states that once he is discharged, pt , Cecy, will pick him up to take him home. Pt denies any needs at this time. DCP updated white board and instructed to call with any questions or concerns that might arise. Pt thankful for the discussion. P: Pt to undergo scope procedure today. Once pt medically stable for discharge, pt to discharge home via spouse POV. Sandra Francis RN/JUAREZ Discharge Planning/Care Management CM Discharge Assessment Start: 09/15/21 08:52 Freq: Status: Active Protocol: Document 09/15/21 08:52 ASHELY (Rec: 09/15/21 08:53 [id number]) Discharge Planning Assessment Assigned Auto Glass Technician Sandra Francis RN/JUAREZ Advance Directives? No Advance Directives on File No History Provided By Patient,Medical Record Prior Living Arrangements House Household Members spouse,children Type of transporation used prior to Drives own vehicle admit Independent with ADL's Yes Is patient alert and oriented? Yes Caregiver for Another No Discharge Plan Home Transportation Arrangement Spouse POV Whiteboard Updated in Patient Room with Yes name and ext. # of Auto Glass Technician Comment Instructed to call Review Status In Process Please Provide Date Initial DC 09/15/21 Assessment Was Performed Next Review Type Continued Stay Review
[2021-09-15] MEDS: DULOXETINE 30 MG CAPSULE PO (09:53)
[2021-09-15] MEDS: FLUoxetine 20 MG CAPSULE 60 MG PO (09:53)
[2021-09-15] MEDS: AMLODIPINE 5 MG TABLET 10 MG PO (09:54)
[2021-09-15] MEDS: PANTOPRAZOLE 40 MG VIAL IV ×2 (09:54→20:35)
[2021-09-15] MEDS: CYANOCOBALAMIN (VITAMIN B-12) 500 MCG TABLET 1000 MCG PO (10:02)
[2021-09-15 11:30] VITALS: BP 118/92; PULSE 61; RESP 16; TEMP 36.1; O2SAT 98
[2021-09-15] MEDS: INSULIN LISPRO 100 UNIT/ML 3ML VIAL SUBCUT (11:57)
[2021-09-15] MEDS: LIDOCAINE PATCH 1 EACH ADH..PATCH TOP (13:53)
[2021-09-15] MEDS: NICOTINE 21 MG PATCH TOP (13:59)
[2021-09-15] MEDS: MAGNESIUM CHLORIDE 64 MG TABLET 128 MG PO (14:07)
[2021-09-15 15:40] VITALS: BP 111/61; PULSE 67; RESP 18; TEMP 36.3; O2SAT 99
[2021-09-15 20:00] VITALS: BP 114/63; PULSE 62; RESP 16; TEMP 36.3; O2SAT 100
[2021-09-15] MEDS: TAMSULOSIN 0.4 MG CAPSULE 0.8 MG PO (20:35)
[2021-09-15] MEDS: OLANZapine 2.5 MG TABLET 20 MG PO (20:36)
[2021-09-15] MEDS: SODIUM CHLORIDE 0.9% FLUSH 10 ML IV (20:47)
[2021-09-16] VITALS (11 sets, daily range): BP systolic 92–142; BP diastolic 58–76; PULSE 58–76; RESP 13–17; TEMP 36–36.7; O2SAT 94–99; BMI 27.2
--- NOTE | 2021-09-16 | PATH_ITS ---
[facility] Accession Number: [id number] . 01 Material submitted: . gastrointestinal site - GASTRIC MUCOSA . 01 Clinical history: . CHEST PAIN . 01 Diagnosis: Stomach, Biopsy: Antral mucosa with no significant diagnostic abnormality. No evidence of Helicobacter on H/E stain. Negative for intestinal metaplasia. Negative for dysplasia and malignancy. MRV 09/19/2021 1411 Local . 01 Electronically signed: . Marlyn Estrada MD, Pathologist NPI- [id number] . 01 Gross description: . GASTRIC MUCOSA: Received in formalin is 1 fragment(s) of hunt, soft tissue measuring 0.3 x 0.2 x 0.2 cm submitted entirely in 1 cassette(s) /MACARENA 09/17/2021 2232 Local . 01 Pathologist provided ICD-10: R10.9 . 01 CPT . 804592 Specimen Comment: A courtesy copy of this report has been sent to [phone] Performed at: 01 [facility] [address] [place] [address], [place], [place] [id number] MD Fidel Garcia MD Phone: [phone]
[2021-09-16] MEDS: HYDROMORPHONE 0.5 MG INJ 1 MG IV ×3 (04:13→11:52)
[2021-09-16] MEDS: ACETAMINOPHEN 325 MG TABLET 650 MG PO ×2 (06:05→11:52)
[2021-09-16 06:16] LABS: Add Manual Diff / Slide Review NO; Basophils Absolute Auto 0 /uL (0-100); Basophils Percent Auto 0.4 % (0-2); Eosinophils Absolute Auto 100 /uL (0-450); Eosinophils Percent Auto 2.2 % (2-4); Hemoglobin 14.6 g/dL (13.5-17.5); Lymphocytes Absolute Auto 1800 /uL (1100-4500); Lymphocytes Percent Auto 30.8 % (25-40); Mean Corpuscular HGB Conc 34.1 % (30-36); Mean Corpuscular Hemoglobin 32.1 PG (26-34); Mean Corpuscular Volume 94.3 fL (80-100); Monocytes Absolute Auto 500 /uL (0-900); Neutrophils Absolute Auto 3500 /uL (1500-7000); Neutrophils Percent Auto 57.6 % (50-75); Platelet Count 189 X10^3/uL (150-400); Red Blood Cell Count 4.53 X10^6/uL (4.5-5.9); Red Cell Distribution Width 15.3 % (11.6-14.8)
[2021-09-16 06:24] LABS: BUN Creatinine Ratio 29.7 (6-22); Blood Urea Nitrogen 22 mg/dL (9-20); Calcium 8.8 mg/dL (8.4-10.2); Carbon Dioxide 21 mmol/L (22-32); Chloride 111 mmol/L (98-107); Estimated Glomerular Filt Rate > 60 mL/min (>60); Glucose 93 mg/dL (80-110); HEMOLYSIS 15 (0-50); Magnesium 1.9 mg/dL (1.6-2.3); Sodium 139 mmol/L (137-145)
[2021-09-16 06:25] LABS: Hematocrit 42.7 % (41-53)
[2021-09-16 06:26] LABS: Potassium 4.8 mmol/L (3.4-5.1)
--- NOTE | 2021-09-16 08:03 | PM.PN.1 ---
Subjective Subjective Date Patient Seen: 09/16/21 Time Patient Seen: 12:00 Interval history: Patient just back from EGD. Requesting diet. Says chest pain is 8/10 and constant. Exam Vital Signs (past 8 hours): - 09/16/21 01:29 09/16/21 04:19 Temperature 96.8 F L Pulse Rate 61 66 Respiratory Rate 14 Blood Pressure 136/76 Pulse Oximetry 98 Oxygen Delivery Method Room Air Oxygen Flow Rate 0 Narrative Exam Narrative: General:? Patient is well developed and well nourished, in no distress at this time. HEENT:? Normocephalic, atraumatic, extraocular muscles intact, oral pharynx is clear and mucous membranes are moist. Neck: supple and symmetric, trachea is midline, no cervical adenopathy. Negative for JVD Chest:? Normal AP diameter and contour without kyphoscoliosis, no tachypnea, equal chest rise bilaterally. Mild pain to palpation of the chest and sternum. Lungs:? CTA b/l no wheezing rhonchi or rales. Cardio:?RRR no m/r/g. Abdomen: Epigastric tenderness to palpation. Musculoskeletal:? Muscle strength and tone are equal within normal limits, no deformity. Extremities: No edema or joint effusions. No cyanosis or clubbing. Skin:? Warm to touch,dry and intact without rashes, ulcerations or petechiae.? Neuro:? Alert and orientated x3,? sensation to touch intact in all extremities, no gross deficits noted of cranial nerves. Psych:? Patient has a well-kept appearance, appropriate affect, mental status attitude thought context and judgment are appropriate for age. Objective Labs Result Diagrams: 09/16/21 05:50 09/16/21 05:50 Labs: Laboratory Results - last 24 hr 09/16/21 09/16/21 05:50 05:50 WBC 6.0 RBC 4.53 Hgb 14.6 Hct 42.7 MCV 94.3 MCH 32.1 MCHC 34.1 RDW 15.3 H Plt Count 189 Neut % (Auto) 57.6 Lymph % (Auto) 30.8 [place] % (Auto) 9.0 Eos % (Auto) 2.2 Baso % (Auto) 0.4 Neut # (Auto) 3500 Lymph # (Auto) 1800 [place] # (Auto) 500 Eos # (Auto) 100 Baso # (Auto) 0 Sodium 139 Potassium 4.8 Chloride 111 H Carbon Dioxide 21 L BUN 22 H Creatinine 0.74 Estimated GFR > 60 BUN/Creatinine Ratio 29.7 H Glucose 93 Calcium 8.8 Magnesium 1.9 PFSH Medical History Degenerative disc disease History of bleeding ulcers HNP (herniated nucleus pulposus), lumbar HTN (hypertension) Hypertriglyceridemia Nephrolithiasis Non-insulin dependent type 2 diabetes mellitus Surgical History History of cervical spinal surgery History of cholecystectomy History of gastric bypass Status post lumbar surgery Family History Mother No known health problems Father No known health problems Social History household members: spouse and children Smoking Status: Current every day smoker alcohol intake: never Assessment & Plan Assessment & Plan narrative: Mr. Yin is a 66-year-old male with past medical history of gastric bypass in 2004 with revision in 2015, non bleeding gastric ulcer in early 2021, GERD, hiatal hernia, hypertension, type 2 diabetes, depression and current 60 pack-year smoker who presents with severe epigastric and chest pain for past 2 weeks. # epigastric and chest pain, active present on admission. -patient recently cardiac workup in December 2020 with normal Lexiscan stress test, echo, negative troponins, normal ECG. Troponins negative x2 today and without ECG changes. -CTA chest in ED negative for PE, aneurysm or dissection -EGD 09/16 showed small gastric ulcers which were nonbleeding not felt to be source of -Continue PPI IV 40 b.i.d. -will obtain abd CT to look for other etiology for pain # melena, active present on admission. -patient notes black stool for ?months? and most recently 2 days ago, no hematochezia, not on iron supplements -hold home aspirin for now -ppi as above -gastric ulcers on 09/16 with no stigmata for bleeding -should have outpatient colonoscopy which is already scheduled for 10/14 # hypertension, chronic present on admission -continue home amlodipine, hold home telmisartan-hydrochlorothiazide as non formulary # type 2 diabetes, chronic present on admission -hold home metformin, sliding scale insulin ordered # depression, chronic present on admission -continue home duloxetine and fluoxetine daily # chronic smoking -nicotine patch PRN Code status is full code Proxy is Cecy his I have reviewed home meds and used all available resources to reconcile the home meds. Time Spent With Patient Critical Care time: I spent a total of [] minutes of critical care time on this patient's care today; this time is exclusive of procedural time. Quality VTE Deep Vein Thrombosis/Pulmonary Embolism Present on Admission: No
[2021-09-16] MEDS: NICOTINE 21 MG PATCH TOP (08:08)
[2021-09-16] MEDS: SODIUM CHLORIDE 0.9% FLUSH 10 ML IV (08:09)
[2021-09-16] MEDS: PANTOPRAZOLE 40 MG VIAL IV (08:09)
[2021-09-16] MEDS: LIDOCAINE PATCH 1 EACH ADH..PATCH TOP (08:09)
[2021-09-16] MEDS: DEXTROSE 10 % IN WATER 250 ML 999 ML IV (09:01)
--- NOTE | 2021-09-16 09:54 | PM.CN ---
History of Present Illness Consult details Date Patient Seen: 09/16/21 Chief complaint: Epigastric Pain Narrative: Kristian is a 66-year-old man who presented to the ER with chest pain cardiac problems were ruled out. He reports that he had an EGD earlier in 2021 in every 8 with findings of an ulcer in the remaining portion of stomach. He was started on b.i.d. omeprazole which he has taken. He reports he has had melanotic stools for several months. He reports that he had a gastric bypass in 2003. He then had some sort of emergency surgery in 2016 because ?his stomach was eating away at his liver?. He continues to smoke. Meds Home Medications and Allergies Home Medications Medication Instructions Recorded Confirmed Type amlodipine 10 mg tablet 10 mg PO DAILY 09/10/18 09/14/21 History aspirin 81 mg tablet,delayed 81 mg PO DAILY 09/10/18 09/14/21 History release cyanocobalamin (vitamin B-12) 1,000 mcg PO DAILY ##0 09/10/18 09/14/21 History 1,000 mcg tablet (Vitamin B-12) diphenhydramine 25 2 tab PO BEDTIME PRN Pain (Scale 09/10/18 09/14/21 History mg-acetaminophen 500 mg tablet Score 1-3) (Tylenol PM Extra Strength) metformin 500 mg tablet 500 mg PO BID 09/10/18 09/14/21 History multivitamin 1 tab PO DAILY 09/10/18 09/14/21 History simvastatin 20 mg tablet 20 mg PO BEDTIME 09/10/18 09/14/21 History tamsulosin 0.4 mg capsule 0.8 mg PO DAILY 09/10/18 09/14/21 History telmisartan 80 1 tab PO DAILY 09/10/18 09/14/21 History mg-hydrochlorothiazide 25 mg tablet acetaminophen 325 mg tablet 975 mg PO Q8H PRN Pain (Scale 09/11/18 09/14/21 Rx Score 4-6) #30 tabs duloxetine 30 mg capsule,delayed 30 mg PO DAILY 04/26/19 09/14/21 History release fluoxetine 60 mg tablet 60 mg PO DAILY 12/18/20 09/14/21 History olanzapine 20 mg tablet 20 mg PO BEDTIME 12/18/20 09/14/21 History omeprazole 20 mg capsule,delayed 20 mg PO DAILY 12/18/20 09/14/21 History release Allergies Allergy/AdvReac Type Severity Reaction Status Date / Time NSAIDS (Non-Steroidal AdvReac Mild CAN TAKE, Verified 09/14/21 08:43 Anti-Inflamma BUT TRIES [NSAIDS (NON-STEROIDAL TO AVOID ANTI-INFLAMMA] R/T GASTRIC BYPASS Exam Vital Signs (past 8 hours): - 09/16/21 04:19 09/16/21 08:00 09/16/21 09:43 Temperature 96.8 F L 97.8 F 97.2 F L Pulse Rate 66 65 58 L Respiratory Rate 14 17 16 Blood Pressure 136/76 142/70 H 125/73 Pulse Oximetry 98 97 99 Oxygen Delivery Method Room Air Oxygen Flow Rate 0 Oxygen Delivery Method Room Air Oxygen Flow Rate 0 Const General: No acute distress Resp Effort & Inspection: normal respiratory effort Objective Labs Result Diagrams: 09/16/21 05:50 09/16/21 05:50 Labs: Laboratory Results - last 24 hr 09/16/21 09/16/21 05:50 05:50 WBC 6.0 RBC 4.53 Hgb 14.6 Hct 42.7 MCV 94.3 MCH 32.1 MCHC 34.1 RDW 15.3 H Plt Count 189 Neut % (Auto) 57.6 Lymph % (Auto) 30.8 [place] % (Auto) 9.0 Eos % (Auto) 2.2 Baso % (Auto) 0.4 Neut # (Auto) 3500 Lymph # (Auto) 1800 [place] # (Auto) 500 Eos # (Auto) 100 Baso # (Auto) 0 Sodium 139 Potassium 4.8 Chloride 111 H Carbon Dioxide 21 L BUN 22 H Creatinine 0.74 Estimated GFR > 60 BUN/Creatinine Ratio 29.7 H Glucose 93 Calcium 8.8 Magnesium 1.9 PFSH Medical History Degenerative disc disease History of bleeding ulcers HNP (herniated nucleus pulposus), lumbar HTN (hypertension) Hypertriglyceridemia Nephrolithiasis Non-insulin dependent type 2 diabetes mellitus Surgical History History of cervical spinal surgery History of cholecystectomy History of gastric bypass Status post lumbar surgery Family History Mother No known health problems Father No known health problems Social History household members: spouse and children Tobacco & Substance Use Smoking Status: Current every day smoker alcohol intake: never Assessment & Plan Assessment and plan (1) Melena: Status: Acute Plan We reviewed the risks and benefits of esophagogastroduodenoscopy to rule out an ulcer in his remaining stomach. If he does have an ulcer as expected the recommendation would be to continue taking PPI therapy and quit smoking. He would like to proceed with the EGD. Time Spent With Patient Critical Care time: I spent a total of [] minutes of critical care time on this patient's care today; this time is exclusive of procedural time.
[2021-09-16] MEDS: LACTATED RINGERS 1,000 ML 42 ML IV (10:03)
--- NOTE | 2021-09-16 10:32 | PM.OP.EGD ---
Operative Date/Time/Diagnoses Date of procedure: 09/16/21 Time of procedure: 10:32 Pre-op diagnosis: Melena Post-op diagnosis: same Procedure & Clinicians Study performed: Esophagogastroduodenoscopy Same procedure as scheduled: Yes Surgeon: Suraj Ferrera Procedure Notes Procedure in detail: Surgeon: Suraj Ferrera MD A timeout was performed. Topical lidocaine was administered to the posterior oropharynx. A bite blocked was placed. The patient was positioned in the supine position. Sedation was administered by Dr. Centeno. The endoscope was inserted through the bite block and passed through the esophagus and stomach. There was mild erythema in the remnant stomach. There were a few small shallow ulcers in the remnant stomach that showed no signs of recent bleeding. There was a metallic clip visible near the anastomosis. A few random biopsies were taken from gastric mucosa. The loop of small bowel distal to the anastomosis was normal for the initial several cm. The scope was not retroflexed in the stomach due to the small narrow caliber. The scope was withdrawn into the esophagus and no abnormalities were noted. The remainder of the esophagus was normal. The scope was withdrawn. The patient was awakened and brought to recovery. Findings: No obvious bleeding ulcer in the gastric remnant Post-procedure Recommendations: Other recommendation(s) (Recommend continuing with the plan for upcoming scheduled colonoscopy to rule out lower GI sources of melena) Disposition: PACU
--- NOTE | 2021-09-16 10:59 | SUR.PHASEI ---
Addendum entered by Leah Hwang R.N. 09/16/21 11:09: 1110: Report given to receiving RN using SBAR with time allowed for questions. Pt transferred to room with ring and watch on, tank top in bag. Original Note: 1055: Pt denies any distress, A&Ox4, VSS and ready to transfer to room. Attempt to call report, RN busy at this time, will return call.
--- NOTE | 2021-09-16 12:09 | DI.CT.S_ITS ---
PROCEDURE: CT ABDOMEN PELVIS W CON INDICATIONS: ongoing epigastric pain TECHNIQUE: After the administration of oral and IV contrast, axial sections were acquired from the lung bases to the pubic symphysis. Coronal and sagittal reformats were performed. For radiation dose reduction, the following was used: automated exposure control, adjustment of mA and/or kV according to patient size. COMPARISON: [facility], CT, CT ANGIO CHEST PE PROTOCOL, 09/12/2021, 12:21. [facility], CT, CT ABDOMEN PELVIS WITH CONTRAST, 02/12/2020, 21:03. FINDINGS: Image quality: Excellent. Lung bases: Unremarkable. Heart: No significant findings. ABDOMEN: Liver: Unremarkable. Gallbladder: Gallbladder is surgically absent. Biliary ducts: Unremarkable. Pancreas: Unremarkable. Spleen: Unremarkable. Adrenal Glands: Unremarkable. Kidneys and Ureters: Bilateral kidneys show normal contrast enhancement. No hydronephrosis or hydroureter. 1.2 x 0.9 cm nonobstructing stone in mid to lower pole right kidney is seen measures 990 Hounsfield unit in density. Stomach and Bowel: There is a moderate-sized hiatal hernia. Postsurgical changes are noted in epigastric region consistent with prior gastric bypass surgery. Oral contrast is seen distending proximal small bowel loops with a few air-fluid levels. There is wall thickening involving small bowel loops in left upper quadrant abdomen with narrowing of the lumen best seen on coronal image 25 and axial image 46. More distal small bowel and colon loops are normal in caliber with [id number] fecal stasis in the colon seen extending to rectum. Peritoneum: No abnorm al intraperitoneal fluid. No free air. Ventral Wall: There is a ventral hernia containing a short segment of small bowel loops. No signs of incarceration or strangulation. There is also evidence of prior ventral hernia repair in anterior upper abdominal wall with postsurgical changes. Abdominal Nodes: No retroperitoneal or mesenteric adenopathy by size criteria. Vessels: Aorta and inferior vena cava are normal in size. Moderate atherosclerotic calcifications are seen in abdominal aorta. PELVIS: Pelvic Organs: Unremarkable. Bladder: Unremarkable. Pelvic Nodes: No enlarged lymph nodes. Miscellaneous: No inguinal hernias are seen. Bones: No suspicious bony lesion. No acute vertebral body compression fracture. Grade 1 anterolisthesis of L4 on L5 is seen. Postfusion changes are noted at L4 through S1 levels. IMPRESSION: 1. Prior gastric bypass surgery. Wall thickening involving proximal to mid small bowel loops in left abdomen with narrowing of the lumen. Mild contrast and fluid distended small bowel loops proximal to the area of wall thickening concerning for enteritis with secondary low-grade partial small bowel obstruction. 2. Small to moderate size ventral hernia containing a segment of small bowel loop. No signs of incarceration. 3. No free fluid or free air. No abscess collection. 4. No abdominal aortic aneurysm or gross dissection. Moderate atherosclerotic disease. 5. Right renal stone as above. No hydronephrosis or hydroureter. Dictated by: Brayan Diaz M.D. on 09/16/2021 at 14:40 Approved by: Brayan Diaz M.D. on 09/16/2021 at 14:49
[2021-09-16] MEDS: HYDROCODONE/ACET 5/325 TABLET 1 TAB PO ×2 (15:24→18:05)
[2021-09-16] MEDS: HYDROMORPHONE 0.5 MG INJ IV (15:24)
--- NOTE | 2021-09-16 18:05 | P.DS_ITS ---
History of Present Illness History of Present Illness Date Patient Seen: 09/16/21 Time Patient Seen: 18:05 Chief complaint: Epigastric Pain Narrative: Mr. Yin is a 66-year-old male with past medical history of gastric bypass in 2004 with revision in 2016, non bleeding gastric ulcer in early 2021, GERD, hiatal hernia, hypertension, type 2 diabetes, depression and current 60 pack- year smoker who presents with severe epigastric and chest pain for past 2 weeks. Patient states he had similar pain in December 2020 and had cardiac workup which was negative including nuclear med stress test, multiple troponins and echo. He then had an EGD in early 2021 which showed nonbleeding gastric ulcer and has been on omeprazole. He is due for repeat EGD with colonoscopy on October 14, 2021. Last screening colonoscopy 5 years ago and he is due. Describes the pain as heavy, constant and better when leaning forward and worse when lying back. He also notes black stools most recently 2 days ago without bright red blood. Denies nausea vomiting, headache, abdominal pain, shortness of breath or cough. In the ED cardiology was called by ED provider who based on previous cardiac workup, negative troponins x2 and no EKG changes did not feel this was cardiac origin. Recommend admission for further workup of other etiology. CTA chest negative for dissection or thoracic aneurysm, PE, pancreatitis or any other abnormality. Discharge Providers Provider Date of admission: 09/14/21 12:51 Discharge Date: 09/16/21 Primary care physician: Shin José PA-C Consults: 09/14/21 16:12 Consult to General Surgery Routine Comment: Consulting Provider: Suraj Ferrera Reason for consultation: possible peptic ulcer, needs EGD Discharge provider: Buck Harmon DO Summary Hospital Course Hospital Course: Patient admitted with chest/epigastric pain which was not felt to be cardiac due to negative troponins, no EKG changes and recent normal Lexiscan stress test and echocardiogram in December 2020 when he presented for the same pain. His pain was improved with nitroglycerin however. He recently had a gastric ulcer and noted black stools so he underwent EGD which showed small gastric ulcers which were nonbleeding and not felt to be the likely source of this pain. He had CTA chest which was normal and CT abdomen pelvis with contrast which showed a possible enteritis and SBO however general surgery was consulted and they did not feel this was present given clinically he was eating and passing bowel movements with no nausea and vomiting. Given that the source of his pain was not found and his chest pain had some features of pericarditis with pleuritic nature and better when leaning forward, he was discharged with 1 month supply of daily colchicine (ibuprofen and aspirin were avoided due to gastric ulcers) to see if this improves his pain. He was also sent home on Protonix 40 mg twice daily and sucralfate for 4 weeks. I suggested he get a referral to a ca rdiologist in case this pain could be associated with vasospastic angina given it improved with nitroglycerin. Exam Vital Signs (past 8 hours): - 09/16/21 10:35 09/16/21 10:40 09/16/21 10:45 Temperature 98.0 F Pulse Rate 76 75 75 Respiratory Rate 13 16 16 Blood Pressure 92/59 L 96/58 L 97/64 Pulse Oximetry 98 98 98 Oxygen Delivery Method Room Air Room Air Room Air Oxygen Flow Rate 09/16/21 10:51 09/16/21 10:56 09/16/21 13:00 Temperature 97.4 F L 97.7 F 97.6 F Pulse Rate 75 68 72 Respiratory Rate 14 16 17 Blood Pressure 105/65 107/68 106/60 Pulse Oximetry 98 99 98 Oxygen Delivery Method Room Air Room Air Oxygen Flow Rate 0 09/16/21 17:00 Temperature 98.1 F Pulse Rate 70 Respiratory Rate 17 Blood Pressure 108/61 Pulse Oximetry 94 Oxygen Delivery Method Oxygen Flow Rate 0 Oxygen Delivery Method Room Air Oxygen Flow Rate 0 Narrative Exam Narrative: General:? Patient is well developed and well nourished, in no distress at this time. HEENT:? Normocephalic, atraumatic, extraocular muscles intact, oral pharynx is clear and mucous membranes are moist. Neck: supple and symmetric, trachea is midline, no cervical adenopathy. Negative for JVD Chest:? Normal AP diameter and contour without kyphoscoliosis, no tachypnea, equal chest rise bilaterally. Mild pain to palpation of the chest and sternum. Lungs:? CTA b/l no wheezing rhonchi or rales. Cardio:?RRR no m/r/g. Abdomen: Epigastric tenderness to palpation. Musculoskeletal:? Muscle strength and tone are equal within normal limits, no deformity. Extremities: No edema or joint effusions. No cyanosis or clubbing. Skin:? Warm to touch,dry and intact without rashes, ulcerations or petechiae.? Neuro:? Alert and orientated x3,? sensation to touch intact in all extremities, no gross deficits noted of cranial nerves. Psych:? Patient has a well-kept appearance, appropriate affect, mental status attitude thought context and judgment are appropriate for age. Objective Labs Result Diagrams: 09/16/21 05:50 09/16/21 05:50 Labs: Laboratory Results - last 24 hr 09/16/21 09/16/21 05:50 05:50 WBC 6.0 RBC 4.53 Hgb 14.6 Hct 42.7 MCV 94.3 MCH 32.1 MCHC 34.1 RDW 15.3 H Plt Count 189 Neut % (Auto) 57.6 Lymph % (Auto) 30.8 Barnwell % (Auto) 9.0 Eos % (Auto) 2.2 Baso % (Auto) 0.4 Neut # (Auto) 3500 Lymph # (Auto) 1800 Barnwell # (Auto) 500 Eos # (Auto) 100 Baso # (Auto) 0 Sodium 139 Potassium 4.8 Chloride 111 H Carbon Dioxide 21 L BUN 22 H Creatinine 0.74 Estimated GFR > 60 BUN/Creatinine Ratio 29.7 H Glucose 93 Calcium 8.8 Magnesium 1.9 PFSH Medical History Degenerative disc disease History of bleeding ulcers HNP (herniated nucleus pulposus), lumbar HTN (hypertension) Hypertriglyceridemia Nephrolithiasis Non-insulin dependent type 2 diabetes mellitus Surgical History History of cervical spinal surgery History of cholecystectomy History of gastric bypass Status post lumbar surgery Family History Mother No known health problems Father No known health problems Social History household members: spouse and children Smoking Status: Current every day smoker alcohol intake: never Discharge Assessment & Plan Assessment and Plan Assessment: Mr. Yin is a 66-year-old male with past medical history of gastric bypass in 2003 with revision in 2015, non bleeding gastric ulcer in early 2021, GERD, hiatal hernia, hypertension, type 2 diabetes, depression and current 60 pack- year smoker who presents with severe epigastric and chest pain for past 2 weeks. # epigastric and chest pain, active present on admission. -patient recently underwent cardiac workup in December 2020 with normal Lexiscan stress test, echo, negative troponins, normal ECG.? Troponins negative x2 today and without ECG changes. -CTA chest in ED negative for PE, aneurysm or dissection -EGD 09/16 showed small gastric ulcers which were nonbleeding not felt to be source of -Continue PPI IV 40 b.i.d. -CT abd with contrast showed what the general surgeon felt was to be an overread of nonspecific enteritis with possible SBO, however patient moving his bowel and eating and drinking normally with no diarrhea -Discharged on PPI 40 BID and sucralfate for 4 weeks -I elected to empirically treat for pericarditis due to pleuritic nature of chest pain and better when leaning forward/worse when leaning back -Also recommended patient see a apprentice painter hand in case this is vasospastic angina # melena, active present on admission. -patient notes black stool for ?months? and most recently 2 days ago, no hematochezia. He is however on iron supplements. -hold home aspirin for now -ppi as above -gastric ulcers on 09/16 with no stigmata for bleeding -should have outpatient colonoscopy which is already scheduled for 10/14 # hypertension, chronic present on admission -continue home amlodipine, hold home telmisartan-hydrochlorothiazide as non formulary # type 2 diabetes, chronic present on admission -hold home metformin, sliding scale insulin ordered # depression, chronic present on admission -continue home duloxetine and fluoxetine daily # chronic smoking -nicotine patch PRN Code status is full code Proxy is Cecy his I have reviewed home meds and used all available resources to reconcile the home meds. Discharge Plan Discharge Plan Patient Disposition: Home Provider Discharge Comment: Your admitted for chest pain and underwent EGD which showed small gastric ulcers which are likely not the source of your pain. I am electing to treat you empirically for possible pericarditis with colchicine. If the pain has not improved after a week or 2 on it, you can stop it. For the gastric ulcers and putting you on Protonix twice daily and sucralfate. I have sent some pain medication as well. I would look into seeing Cardiology in case this could possibly be vasospastic angina since you had improvement of your pain with nitroglycerin and this can sometimes be missed on EKG or stress test. You would need an angiogram to rule out any coronary artery disease. Discharge orders & Medications Prescriptions: New hydrocodone-acetaminophen 5-325 mg Tablet 1 tab PO Q4HR PRN (Reason: Pain, Moderate (4-6)) Qty: 15 0RF colchicine 0.6 mg capsule 0.6 mg PO BID 90 Days Qty: 180 0RF pantoprazole [Protonix] 40 mg tablet,delayed release (DR/EC) 40 mg PO BID 30 Days Qty: 60 0RF sucralfate 1 gram tablet 1 g PO Q6H 30 Days Qty: 120 0RF Continued duloxetine 30 mg Capsule,Delayed Release(Dr/Ec) 30 mg PO DAILY Label Comments: patient states he does not take this med metformin 500 mg tablet 500 mg PO BID tamsulosin 0.4 mg capsule 0.8 mg PO DAILY amlodipine 10 mg tablet 10 mg PO DAILY simvastatin 20 mg tablet 20 mg PO BEDTIME telmisartan-hydrochlorothiazid 80-25 mg tablet 1 tab PO DAILY multivitamin Tablet 1 tab PO DAILY cyanocobalamin (vitamin B-12) [Vitamin B-12] 1,000 mcg Tablet 1,000 mcg PO DAILY Qty: 0 diphenhydramine-acetaminophen [Tylenol PM Extra Strength] 25-500 mg Tablet 2 tab PO BEDTIME PRN (Reason: Pain (Scale Score 1-3)) acetaminophen 325 mg Tablet 975 mg PO Q8H PRN (Reason: Pain (Scale Score 4-6)) Qty: 30 0RF olanzapine 20 mg tablet 20 mg PO BEDTIME Label Comments: take 1 tablet by mouth at bedtime fluoxetine 60 mg tablet 60 mg PO DAILY Label Comments: take 1 tablet by mouth once daily Discontinued aspirin 81 mg Tablet,Delayed Release (Dr/Ec) 81 mg PO DAILY omeprazole 20 mg capsule,delayed release(DR/EC) 20 mg PO DAILY Label Comments: take 1 capsule by mouth once daily 30 MINUTES BEFORE A MEAL Follow up/Referrals: Shin José PA-C [Primary Care Provider] - Diet/Activity/Treatments Diet: Diet as Tolerated Visit Report/Discharge Packet Instructions: DI for Pericarditis, DI for Gastric Ulcer Stand Alone Forms: Work/Release Restrictions Discharge Data Primary Care Provider: Shin José Attending Provider: Buck Harmon Quality VTE Deep Vein Thrombosis/Pulmonary Embolism Present on Admission: No
[2021-09-16] MEDS: COLCHICINE 0.6 MG TABLET PO (18:06)
--- NOTE | 2021-09-16 18:19 | PC.NURSE ---
Discharge Note Patient A&O, VSS , RA, pain well managed with PRN medication, prescriptions given for home. TELE/PIV discontinued. Discharge packet reviewed with patient all questions/concerns addressed. Patient able to dress self and pack belongings. Prescriptions given to patient along with work excuse note. Patient taken down via wheelchair to POV.
== END 2021-09-16 18:30 | disposition home or self-care (01) | DRG 378 ==
LOC: ED 08:52 → AC 12:52
PROVIDERS: Surgery; Admitting Provider Student in an Organized Health Care Education/Training Program; Emergency Provider Emergency Medicine; PCP Student in an Organized Health Care Education/Training Program; Referring Provider Emergency Medicine; Visit Provider Student in an Organized Health Care Education/Training Program
PROC: 0DJ08ZZ Inspection of Upper Intestinal Tract, Via Natural or Artificial Opening Endoscopic (ICD-10-PCS; CPT 43235; principal; 2021-09-16 09:30)
DX: K92.1 Melena (principal); R10.13 Epigastric pain; R07.9 Chest pain, unspecified; K25.9 Gastric ulcer, unspecified as acute or chronic, without hemorrhage or perforation; I31.9 Disease of pericardium, unspecified; F17.210 Nicotine dependence, cigarettes, uncomplicated; I10 Essential (primary) hypertension; E11.9 Type 2 diabetes mellitus without complications; F32.A Depression, unspecified; E78.1 Pure hyperglyceridemia; K21.9 Gastro-esophageal reflux disease without esophagitis; Z20.822 Contact with and (suspected) exposure to COVID-19; Z79.84 Long term (current) use of oral hypoglycemic drugs; Z98.84 Bariatric surgery status; R51.9 Headache, unspecified; I25.10 Atherosclerotic heart disease of native coronary artery without angina pectoris
CPT/HCPCS: 43239; 36415; 70450; 71045; 71275; 74177; 80048; 80053; 82550; 82962; 83605; 83690; 83735; 83880; 84443; 84484; 85025; 85610; 85651; 85730; 86140; 86850; 86900; 86901; 87635; 93005; 93010; 96374; 96375; 96376; 99225; 99284; 99285; C9803; G0378; C9113; J1170; J1815; J1885; J2250; J2704; J3010; Q9967

== ENCOUNTER → 2021-10-11 09:29 | Outpatient (CLI) | payer MEDICARE, OTHER, SELFPAY ==
[2021-09-14 14:40] VITALS: BMI 27.2
[2021-10-11 11:32] LABS: COVID19 -Nasal RAPID Negative (Negative)
== END ==
PROVIDERS: PCP Student in an Organized Health Care Education/Training Program; Visit Provider Surgery
DX: Z01.812 Encounter for preprocedural laboratory examination (principal); Z20.822 Contact with and (suspected) exposure to COVID-19
CPT/HCPCS: 87635; C9803

== ENCOUNTER 2021-10-14 09:40 | Day surgery (SDC) | payer OTHER, SELFPAY ==
[2020-12-18 15:59] VITALS: BMI 28.0
[2021-09-14 14:40] VITALS: BMI 27.2
--- NOTE | 2021-10-14 | PATH_ITS ---
[facility] Accession Number: [id number] . 01 Material submitted: . colon - TRANSVERSE COLON BX . 01 Clinical history: . DX COLONOSCOPY/EGD . 01 Diagnosis: Transverse Colon, Biopsy: Tubular adenoma. MRV 10/16/2021 1217 Local . 01 Electronically signed: . Ale Jang MD, Pathologist NPI- [id number] . 01 Gross description: . TRANSVERSE COLON BX: Received in formalin is 1 fragment(s) of hunt, soft tissue measuring 0.4 x 0.2 x 0.1 cm submitted entirely in 1 cassette(s) /CPE 10/15/2021 0511 Local . 01 Pathologist provided ICD-10: D12.3 . 01 CPT . 612901 Specimen Comment: A courtesy copy of this report has been sent to [phone] Performed at: 01 [facility] [address] [place] [address], [place], [place] [id number] MD Fidel Garcia MD Phone: [phone]
[2021-10-14 10:37] VITALS: BP 179/95; PULSE 74; RESP 16; TEMP 36.6; O2SAT 100; BMI 28.2
[2021-10-14] MEDS: SODIUM CHLORIDE 0.9% 1,000 ML 84 ML IV (10:51)
--- NOTE | 2021-10-14 10:51 | SUR.PREOP ---
denies chest pain since being discharged from the hospital, states that he will see the office support clerk on 10/22/21. Has not used nitro since leaving the hospital.
--- NOTE | 2021-10-14 11:18 | PM.HP.1 ---
History of Present Illness History of Present Illness Date Patient Seen: 10/14/21 Time Patient Seen: 11:18 Chief complaint: DX COLONOSCOPY/EGD Narrative: History of anastomotic ulcer. Recheck has been requested the to confirm healing. He is responding to the PPI. He also reports a personal history of colon polyps and is indicated for colon cancer screening. I reviewed the recent office note by Mildred Henriquez from August 13. Other than improvement overall from an epigastric pain standpoint he had a short hospitalization for a chest pain workup that did not turn not any obvious cause. Patient History Medical History Degenerative disc disease GERD (gastroesophageal reflux disease) History of bleeding ulcers HNP (herniated nucleus pulposus), lumbar HTN (hypertension) Hypertriglyceridemia Nephrolithiasis Non-insulin dependent type 2 diabetes mellitus Surgical History History of cervical spinal surgery History of cholecystectomy History of colonoscopy History of gastric bypass History of vasectomy Status post lumbar surgery Family & Social History Family History Mother No known health problems Father No known health problems Social History: household members spouse,children Tobacco & Substance use: Tobacco type cigarettes Smoking Status Current every day smoker Smoking packs per day 0.5 alcohol intake former alcohol intake frequency holiday/special occasion Substance Use Type does not use Meds Home Medications and Allergies Home Medications Medication Instructions Recorded Confirmed Type amlodipine 10 mg tablet 10 mg PO DAILY 09/10/18 10/14/21 History diphenhydramine 25 2 tab PO BEDTIME PRN Pain (Scale 09/10/18 10/14/21 History mg-acetaminophen 500 mg tablet Score 1-3) (Tylenol PM Extra Strength) metformin 500 mg tablet 500 mg PO BID 09/10/18 10/14/21 History multivitamin 1 tab PO DAILY 09/10/18 10/14/21 History simvastatin 20 mg tablet 20 mg PO BEDTIME 09/10/18 10/14/21 History tamsulosin 0.4 mg capsule 0.8 mg PO DAILY 09/10/18 10/14/21 History telmisartan 80 1 tab PO DAILY 09/10/18 10/14/21 History mg-hydrochlorothiazide 25 mg tablet acetaminophen 325 mg tablet 975 mg PO Q8H PRN Pain (Scale 09/11/18 10/14/21 Rx Score 4-6) #30 tabs duloxetine 30 mg capsule,delayed 30 mg PO DAILY 04/26/19 10/14/21 History release fluoxetine 60 mg tablet 60 mg PO DAILY 12/18/20 10/14/21 History olanzapine 20 mg tablet 20 mg PO BEDTIME 12/18/20 10/14/21 History colchicine 0.6 mg capsule 0.6 mg PO BID 90 days #180 caps 09/16/21 10/14/21 Rx Allergies Allergy/AdvReac Type Severity Reaction Status Date / Time NSAIDS (Non-Steroidal AdvReac Mild CAN TAKE, Verified 10/14/21 10:21 Anti-Inflamma BUT TRIES [NSAIDS (NON-STEROIDAL TO AVOID ANTI-INFLAMMA] R/T GASTRIC BYPASS Review of Systems Review of Systems ROS: Yes All systems reviewed with the patient and are negative except as otherwise documented Exam Vital Signs (past 8 hours): - 10/14/21 10:37 Temperature 97.8 F Pulse Rate 74 Respiratory Rate 16 Blood Pressure 179/95 H Pulse Oximetry 100 Oxygen Delivery Method Room Air Oxygen Delivery Method Room Air Const General: cooperative HENMT Head: normal to inspection Eyes General: appearance normal, both eyes and all related structures Neck Neck: normal visual inspection Chest Chest: normal inspection of the chest Resp Effort & Inspection: normal respiratory effort Cardio Rate: regular rate GI Inspection: normal to inspection Skin General: no rashes or lesions noted Neuro General: patient alert and patient awake Extrem General: normal to inspection and no pedal edema Psych Appearance: grossly normal Assessment & Plan Assessment & Plan narrative: 66-year-old male with a history of gastric bypass versus Billroth 1 operation and an associated anastomotic ulcer. He also has a personal history of unknown histology colon polyps. EGD and colonoscopy are pursued today. Time Spent With Patient Critical Care time: I spent a total of [] minutes of critical care time on this patient's care today; this time is exclusive of procedural time.
--- NOTE | 2021-10-14 11:22 | PM.PREOP ---
Pre-operative Note COVID-19 COVID-19 status: Negative Result date/Date tested (Pos, Neg/Pending): 10/11/21 Criteria for continued procedure: Possibility delay results in more complex future surgery or treatment Interval Note History & Physical reviewed/Exam performed by Physician: Yes Changes to H&P: No ASA Class (for procedural sedation): II
--- NOTE | 2021-10-14 12:32 | P.OP.EGD&C_ITS ---
Operative Date/Time/Diagnoses Date of procedure: 10/14/21 Time of procedure: 12:32 Pre-op diagnosis: Anastomotic ulcer and a personal history of colon polyps. Post-op diagnosis: same Procedure & Clinicians Study performed: EGD and colonoscopy with hot snare polypectomy Same procedure as scheduled: Yes Indications: Anastomotic ulcer and a personal history of colon polyps. Surgeon: Harman Bae Procedure Notes SCOAP/Timeout: Done Procedure in detail: After the risks and benefits were explained, written and verbal informed consent was obtained. The patient was brought into the procedure room and placed into the left lateral decubitus position. Please see nurse in tube conversion technician notes for sedation details. The scope was introduced into the mouth through the bite block and advanced under direct visualization through the gastroenteric anastomosis to the small bowel. The scope was slowly withdrawn carefully examining the mucosa for any defects or lesions. Retroflexed views were accomplished in the stomach. The stomach was decompressed, the scope was then removed from the patient who tolerated the procedure well. The patient was then turned around, a digital rectal examination accomplished. No significant pathology was appreciated. The scope was introduced into the rectum and advanced to the cecum as identified by the appendiceal orifice and ileocecal valve. The scope was slowly withdrawn to carefully examine the mucosa for any defects or lesions. Multiple direct views were made through the dentate line for exclusion of pathology the colon was decompressed scope removed the patient tolerated the procedure well. Bowel prep fair at best. Copious amounts of irrigation and suction were required during today's examination. Despite our efforts, there were some areas that could not be fully cleansed. Adult colonoscope Scope withdrawal time: 11 minutes Sedation minutes: 34 Complications: none Impression: 1. Small bowel: I did not appreciate an afferent ileum. Surgical anatomy would be more consistent with distal gastrectomy and Billroth 1. I all anastomosis. 2. Stomach: There was a fairly normal size gastric pouch. The gastroenteric anastomosis is widely patent. However there were multiple retained sutures and associated inflammation and ulceration with these sutures. I did not repeat the biopsies. Based on the pictures from the last exam I am not sure there has been a huge amount of improvement. No neoplastic appearing features were identified. 3. Esophagus: The squamocolumnar junction correlated with the top of the gastric folds. No acute erosive changes no strictures no mass lesions throughout. 4. Colon: Prep conditions as above. In the transverse colon there was a 5-6 mm sessile polyp removed with hot snare polypectomy. Within the limitations of prep, no additional pathology was appreciated throughout. Grade 2 internal hemorrhoids were noted on direct views. Endoscopic diagnosis 1. Billroth 1 style gastric surgical anatomy 2. Anastomotic ulceration with retained sutures 3. Colon polyp 4. Grade 2 hemorrhoids Post-procedure Plan for aftercare: 1. Await histopathology. 2. Repeat colonoscopy in 1 year with an extra day of prep. 3. I suspect the ulceration at the anastomosis to be related to the retained sutures (foreign body affect) plus or minus an element of anastomotic ischemia in that there has not been a significant improvement with anti acid therapy. For persisting symptoms, surgical revision might need to be considered. Disposition: PACU
[2021-10-14 12:35] VITALS: BP 113/75; PULSE 79; RESP 16; TEMP 36.6; O2SAT 100
[2021-10-14 12:39] VITALS: BP 114/77; PULSE 80; RESP 13; TEMP 36.6; O2SAT 99
[2021-10-14 12:43] VITALS: BP 148/88; PULSE 68; RESP 20; TEMP 36.6; O2SAT 100
[2021-10-14 12:47] VITALS: BP 151/88; PULSE 65; RESP 20; TEMP 36.4; O2SAT 100
== END 2021-10-14 13:10 | disposition home or self-care (01) ==
PROVIDERS: PCP Student in an Organized Health Care Education/Training Program; Referring Provider Internal Medicine Gastroenterology; Visit Provider Internal Medicine Gastroenterology
PROC: 0DJ08ZZ Inspection of Upper Intestinal Tract, Via Natural or Artificial Opening Endoscopic (ICD-10-PCS; CPT 43235; principal; 2021-10-14 11:00)
PROC: 0DJD8ZZ Inspection of Lower Intestinal Tract, Via Natural or Artificial Opening Endoscopic (ICD-10-PCS; CPT 45378; 2021-10-14 11:00)
DX: Z12.11 Encounter for screening for malignant neoplasm of colon (principal); Z86.010 Personal history of colon polyps; K28.9 Gastrojejunal ulcer, unspecified as acute or chronic, without hemorrhage or perforation; K21.9 Gastro-esophageal reflux disease without esophagitis; Z98.84 Bariatric surgery status; I10 Essential (primary) hypertension; E11.9 Type 2 diabetes mellitus without complications; Z79.84 Long term (current) use of oral hypoglycemic drugs; K64.1 Second degree hemorrhoids; Z18.89 Other specified retained foreign body fragments; D12.3 Benign neoplasm of transverse colon
CPT/HCPCS: 45385; 43235; J2704; J3010

== ENCOUNTER 2021-10-31 12:08 | Emergency (ER) | payer MEDICARE, OTHER, SELFPAY ==
[2021-09-14 14:40] VITALS: BMI 27.2
[2021-10-31] VITALS (20 sets, daily range): BP systolic 89–163; BP diastolic 50–77; PULSE 54–74; RESP 11–26; TEMP 36.6–36.7; O2SAT 94–98; BMI 29.0
--- NOTE | 2021-10-31 12:12 | DI.RAD.S_ITS ---
PROCEDURE: XR CHEST 1V INDICATIONS: chest pain TECHNIQUE: One view of the chest was acquired. COMPARISON: [facility], CR, XR CHEST 1V, 09/14/2021, 8:35. FINDINGS: Surgical changes and devices: Cervical fixation hardware is unchanged. Lungs and pleura: Lungs are clear. No pleural effusions or pneumothorax. Mediastinum: Mediastinal contours appear normal. Heart size is normal. Bones and chest wall: No suspicious bony lesions. Overlying soft tissues appear unremarkable. IMPRESSION: No acute cardiopulmonary findings. Dictated by: Micki Metzger M.D. on 10/31/2021 at 13:33 Approved by: Micki Metzger M.D. on 10/31/2021 at 13:34
[2021-10-31 12:44] LABS: INR 1.1 (0.9-1.3); Prothrombin Time 12.7 SECONDS (10.1-12.7)
[2021-10-31 12:45] LABS: Add Manual Diff / Slide Review NO; Basophils Absolute Auto 0 /uL (0-100); Basophils Percent Auto 0.6 % (0-2); Eosinophils Absolute Auto 100 /uL (0-450); Eosinophils Percent Auto 0.9 % (2-4); Hematocrit 37.5 % (41-53); Hemoglobin 12.7 g/dL (13.5-17.5); Lymphocytes Absolute Auto 1900 /uL (1100-4500); Lymphocytes Percent Auto 22.5 % (25-40); Mean Corpuscular HGB Conc 33.9 % (30-36); Mean Corpuscular Hemoglobin 32.2 PG (26-34); Mean Corpuscular Volume 94.9 fL (80-100); Monocytes Absolute Auto 500 /uL (0-900); Monocytes Percent Auto 6.2 % (3-14); Neutrophils Absolute Auto 5900 /uL (1500-7000); Neutrophils Percent Auto 69.8 % (50-75); Platelet Count 227 X10^3/uL (150-400); Red Blood Cell Count 3.95 X10^6/uL (4.5-5.9); White Blood Cell Count 8.4 X10^3/uL (4.5-11.0)
[2021-10-31 12:47] LABS: Alanine Aminotransferase 16 IU/L (<50); Albumin 3.9 g/dL (3.5-5.0); Albumin Globulin Ratio 1.3 (1.0-2.8); Alkaline Phosphatase 107 U/L (38-126); Aspartate Aminotransferase 23 IU/L (17-59); BUN Creatinine Ratio 21.6 (6-22); Bilirubin Total 0.4 mg/dL (0.2-1.3); Blood Urea Nitrogen 24 mg/dL (9-20); Calcium 8.8 mg/dL (8.4-10.2); Carbon Dioxide 23 mmol/L (22-32); Chloride 106 mmol/L (98-107); Creatine Kinase 76 U/L (55-170); Estimated Glomerular Filt Rate > 60 mL/min (>60); Globulin 2.9 g/dL (1.7-4.1); Glucose 135 mg/dL (80-110); HEMOLYSIS 24 (0-50); Lipase 71 U/L (23-300); Magnesium 1.7 mg/dL (1.6-2.3); PTT Partial Thromboplastin Tim 31 SECONDS (26-36); Potassium 4.3 mmol/L (3.4-5.1); Sodium 137 mmol/L (137-145); Total Protein 6.8 g/dL (6.3-8.2)
[2021-10-31 12:59] LABS: Troponin I < 0.012 ng/mL (0.01-0.034)
--- NOTE | 2021-10-31 13:37 | ED.CHESTPAIN ---
HPI - Chest Pain <Sofia Ru, - Last Filed: 11/01/21 08:18> General Chief Complaint: Chest Pain Stated Complaint: chest pain Time Seen by Provider: 10/31/21 12:56 Source: patient Mode of arrival: Ambulatory Limitations: no limitations History of Present Illness HPI narrative: Patient is a 66-year-old male history of gastric bypass, hiatal hernia, hypertension, type 2 diabetes, known coronary artery disease presenting today with chest pain. He actually was admitted on September 14 through the for chest pain. During that admission he had an EGD which showed small gastric old ulcers which were non bleeding felt to be the source of his pain. He had abdominal CT and a chest CT at that time. He followed up with Dr. Santiago, cardiology, he apparently is supposed to be getting cardiac catheterization at point. Today he was sitting down when he developed chest heaviness radiating to the left side. This feels similar. He denies any shortness of breath. His pain did resolve however while I was talking to him it started again. If years that patient is scheduled for an outpatient heart catheterization on November 06. However due to the non bleeding ulcers 3rd doing a trial run of aspirin and Plavix to see if he bleeds. If there is bleeding than a stent is not possible secondary to bleeding ulcers. Related Data Home Medications Medication Instructions Recorded Confirmed amlodipine 10 mg tablet 10 mg PO DAILY 09/10/18 10/14/21 diphenhydramine 25 2 tab PO BEDTIME PRN Pain (Scale 09/10/18 10/14/21 mg-acetaminophen 500 mg tablet Score 1-3) (Tylenol PM Extra Strength) metformin 500 mg tablet 500 mg PO BID 09/10/18 10/14/21 multivitamin 1 tab PO DAILY 09/10/18 10/14/21 simvastatin 20 mg tablet 20 mg PO BEDTIME 09/10/18 10/14/21 tamsulosin 0.4 mg capsule 0.8 mg PO DAILY 09/10/18 10/14/21 telmisartan 80 1 tab PO DAILY 09/10/18 10/14/21 mg-hydrochlorothiazide 25 mg tablet duloxetine 30 mg capsule,delayed 30 mg PO DAILY 04/26/19 10/14/21 release fluoxetine 60 mg tablet 60 mg PO DAILY 12/18/20 10/14/21 olanzapine 20 mg tablet 20 mg PO BEDTIME 12/18/20 10/14/21 Previous Rx's Medication Instructions Recorded acetaminophen 325 mg tablet 975 mg PO Q8H PRN Pain (Scale 09/11/18 Score 4-6) #30 tabs colchicine 0.6 mg capsule 0.6 mg PO BID 90 days #180 caps 09/16/21 hydrocodone 5 mg-acetaminophen 325 1 tab PO Q6H PRN pain #7 tabs 10/31/21 mg tablet isosorbide mononitrate 30 mg 30 mg PO DAILY #30 tabs 10/31/21 tablet,extended release 24 hr omeprazole 40 mg capsule,delayed 40 mg PO DAILY #30 caps 10/31/21 release Allergies Allergy/AdvReac Type Severity Reaction Status Date / Time NSAIDS (Non-Steroidal AdvReac Mild CAN TAKE, Verified 10/31/21 12:10 Anti-Inflamma BUT TRIES [NSAIDS (NON-STEROIDAL TO AVOID ANTI-INFLAMMA] R/T GASTRIC BYPASS Review of Systems <Sofia Vences DO - Last Filed: 11/01/21 08:18> Review of Systems Narrative: GENERAL: Denies chills, fatigue, malaise, fever, sweats, travel HEENT: Denies sinus pain, ear pain, sore throat, difficulty swallowing, neck pain RESPIRATORY: Denies dyspnea, cough, wheezing, hemoptysis, sputum. CARDIOVASCULAR: See HPI GASTROINTESTINAL: Denies nausea, vomiting, abdominal pain, diarrhea, constipation, melena. : Denies dysuria, frequency, incontinence, hematuria, urinary retention, flank pain. MUSCULOSKELETAL: Denies weakness, joint pain, or bony pain SKIN: No rash, no erythema, no pruritus NEUROLOGIC: Denies weakness, dizziness, headache, numbness, change in speech, confusion PSYCHIATRIC: No concerning psychosocial issues. 12 point review of systems is negative except for those stated above and HPI Patient History <Sofia Vences DO - Last Filed: 11/01/21 08:18> Medical History Degenerative disc disease GERD (gastroesophageal reflux disease) History of bleeding ulcers HNP (herniated nucleus pulposus), lumbar HTN (hypertension) Hypertriglyceridemia Nephrolithiasis Non-insulin dependent type 2 diabetes mellitus Surgical History History of cervical spinal surgery History of cholecystectomy History of colonoscopy History of gastric bypass History of vasectomy Status post lumbar surgery Family History Mother No known health problems Father No known health problems Social History household members: spouse and children Smoking Status: Current every day smoker alcohol intake: former Smoking Status: Current every day smoker tobacco type: cigarettes alcohol intake frequency: holidays/special occasions only Substance Use Type: does not use Exam <Sofia Vences DO - Last Filed: 11/01/21 08:18> Initial Vital Signs Initial Vital Signs: Vital Signs Temperature 97.8 F 10/31/21 12:10 Pulse Rate 74 10/31/21 12:10 Respiratory Rate 16 10/31/21 12:10 Blood Pressure 114/56 L 10/31/21 12:10 Pulse Oximetry 98 10/31/21 12:10 Oxygen Delivery Method 10/31/21 12:10 GENERAL: Alert 66-year-old male appears uncomfortable clutching chest HEENT: Head atraumatic,EOMI, pupils reactive, face symmetric, [moist] mucous membranes CARDIOVASCULAR: Regular rate and rhythm without murmurs, rubs or gallops. RESPIRATORY: Breath sounds equal bilaterally, no wheezes rales or rhonchi. ABDOMEN: Soft, nontender. Normoactive bowel sounds all 4 quadrants. No guarding or rebound. EXTREMITIES: Normal range of motion, no clubbing or edema. Neurovascularly intact NEUROLOGICAL: Alert and oriented x4.Normal gait and speech. SKIN: Warm, dry, no laceration, no petechiae, no rashes or lesions. <Erin Rod DO - Last Filed: 11/01/21 01:15> Initial Vital Signs Initial Vital Signs: Vital Signs Temperature 97.8 F 10/31/21 12:10 Pulse Rate 74 10/31/21 12:10 Respiratory Rate 16 10/31/21 12:10 Blood Pressure 114/56 L 10/31/21 12:10 Pulse Oximetry 98 10/31/21 12:10 Oxygen Delivery Method 10/31/21 12:10 Course <DO Ezra Vidales Last Filed: 11/01/21 08:18> Orders Ordered: Discontinued Medications Hydromorphone HCl (Hydromorphone 1 Mg Inj) 1 mg IV NOW ONE Stop: 10/31/21 15:12 Last Admin: 10/31/21 15:23 Dose: 1 mg Documented By: RL Hydromorphone HCl (Hydromorphone 1 Mg Inj) 1 mg IV NOW ONE Stop: 10/31/21 17:22 Last Admin: 10/31/21 17:26 Dose: 1 mg Documented By: RL Hydromorphone HCl (Hydromorphone 0.5 Mg Inj) 0.5 mg IV NOW ONE Stop: 10/31/21 19:21 Last Admin: 10/31/21 19:25 Dose: 0.5 mg Documented By: RL Sodium Chloride (Normal Saline 0.9%) 1,000 mls @ 1,000 mls/hr IV BOLUS ONE Stop: 10/31/21 14:38 Last Infusion: 10/31/21 15:19 Dose: 0 mls/hr Documented By: Admin: 10/31/21 13:43 Dose: 1,000 mls/hr Documented By: RL Isosorbide Mononitrate (Isosorbide Mononitrate Er 30 Mg Tablet) 30 mg PO NOW ONE Stop: 10/31/21 16:01 Last Admin: 10/31/21 16:42 Dose: 30 mg Documented By: RL Morphine Sulfate (Morphine 2 Mg/Ml Inj) 2 mg IV NOW ONE Stop: 10/31/21 14:21 Last Admin: 10/31/21 14:32 Dose: 2 mg Documented By: RL Nitroglycerin (Nitroglycerin 0.4 Mg Sl Tab) 0.4 mg SL [id number] PRN PRN Reason: Chest Pain Last Admin: 10/31/21 13:55 Dose: 0.4 mg Documented By: Admin: 10/31/21 13:50 Dose: 0.4 mg Documented By: Admin: 10/31/21 13:44 Dose: 0.4 mg Documented By: RL Pantoprazole Sodium (Pantoprazole 40 Mg Vial) 40 mg IV NOW ONE Stop: 10/31/21 14:06 Last Admin: 10/31/21 14:19 Dose: 40 mg Documented By: RL Vital Signs Vital signs: Vital Signs - 8 hr 10/31/21 17:30 10/31/21 17:31 10/31/21 17:31 Pulse Rate 61 59 L Respiratory Rate 20 21 Blood Pressure 129/68 Pulse Oximetry 97 96 10/31/21 18:00 10/31/21 18:00 10/31/21 18:30 Pulse Rate 61 Respiratory Rate 16 Blood Pressure 130/70 148/72 H Pulse Oximetry 95 10/31/21 18:30 10/31/21 19:00 10/31/21 19:00 Pulse Rate 54 L 54 L Respiratory Rate 14 15 Blood Pressure 138/66 Pulse Oximetry 94 96 10/31/21 19:30 10/31/21 19:30 Pulse Rate 57 L Respiratory Rate 15 Blood Pressure 122/66 Pulse Oximetry 95 <Erin Rod DO - Last Filed: 11/01/21 01:15> Orders Ordered: Discontinued Medications Hydromorphone HCl (Hydromorphone 1 Mg Inj) 1 mg IV NOW ONE Stop: 10/31/21 15:12 Last Admin: 10/31/21 15:23 Dose: 1 mg Documented By: RL Hydromorphone HCl (Hydromorphone 1 Mg Inj) 1 mg IV NOW ONE Stop: 10/31/21 17:22 Last Admin: 10/31/21 17:26 Dose: 1 mg Documented By: RL Hydromorphone HCl (Hydromorphone 0.5 Mg Inj) 0.5 mg IV NOW ONE Stop: 10/31/21 19:21 Last Admin: 10/31/21 19:25 Dose: 0.5 mg Documented By: ROSITA Sodium Chloride (Normal Saline 0.9%) 1,000 mls @ 1,000 mls/hr IV BOLUS ONE Stop: 10/31/21 14:38 Last Infusion: 10/31/21 15:19 Dose: 0 mls/hr Documented By: Admin: 10/31/21 13:43 Dose: 1,000 mls/hr Documented By: RL Isosorbide Mononitrate (Isosorbide Mononitrate Er 30 Mg Tablet) 30 mg PO NOW ONE Stop: 10/31/21 16:01 Last Admin: 10/31/21 16:42 Dose: 30 mg Documented By: RL Morphine Sulfate (Morphine 2 Mg/Ml Inj) 2 mg IV NOW ONE Stop: 10/31/21 14:21 Last Admin: 10/31/21 14:32 Dose: 2 mg Documented By: RL Nitroglycerin (Nitroglycerin 0.4 Mg Sl Tab) 0.4 mg SL [id number] PRN PRN Reason: Chest Pain Last Admin: 10/31/21 13:55 Dose: 0.4 mg Documented By: Admin: 10/31/21 13:50 Dose: 0.4 mg Documented By: Admin: 10/31/21 13:44 Dose: 0.4 mg Documented By: ROSITA Pantoprazole Sodium (Pantoprazole 40 Mg Vial) 40 mg IV NOW ONE Stop: 10/31/21 14:06 Last Admin: 10/31/21 14:19 Dose: 40 mg Documented By: ROSITA Vital Signs Vital signs: Vital Signs - 8 hr 10/31/21 17:30 10/31/21 17:31 10/31/21 17:31 Pulse Rate 61 59 L Respiratory Rate 20 21 Blood Pressure 129/68 Pulse Oximetry 97 96 10/31/21 18:00 10/31/21 18:00 10/31/21 18:30 Pulse Rate 61 Respiratory Rate 16 Blood Pressure 130/70 148/72 H Pulse Oximetry 95 10/31/21 18:30 10/31/21 19:00 10/31/21 19:00 Pulse Rate 54 L 54 L Respiratory Rate 14 15 Blood Pressure 138/66 Pulse Oximetry 94 96 10/31/21 19:30 10/31/21 19:30 Pulse Rate 57 L Respiratory Rate 15 Blood Pressure 122/66 Pulse Oximetry 95 MDM - Chest Pain <Sofia Vences, - Last Filed: 11/01/21 08:18> Lab Data Result diagrams: 10/31/21 12:15 10/31/21 12:15 Labs: Lab Results 10/31/21 10/31/21 10/31/21 Range/Units 12:15 12:15 12:15 WBC 8.4 (4.5-11.0) X10^3/uL RBC 3.95 L (4.5-5.9) X10^6/uL Hgb 12.7 L (13.5-17.5) g/dL Hct 37.5 L (41-53) % MCV 94.9 (80-100) fL MCH 32.2 (26-34) PG MCHC 33.9 (30-36) % RDW 14.0 (11.6-14.8) % Plt Count 227 (150-400) X10^3/uL Neut % (Auto) 69.8 (50-75) % Lymph % (Auto) 22.5 L (25-40) % Mitchell % (Auto) 6.2 (3-14) % Eos % (Auto) 0.9 L (2-4) % Baso % (Auto) 0.6 (0-2) % Neut # (Auto) 5900 (2964-1254) /uL Lymph # (Auto) 1900 (1527-3721) /uL Mitchell # (Auto) 500 (0-900) /uL Eos # (Auto) 100 (0-450) /uL Baso # (Auto) 0 (0-100) /uL PT 12.7 (10.1-12.7) SECONDS INR 1.1 (0.9-1.3) APTT 31 (26-36) SECONDS Sodium 137 (137-145) mmol/L Potassium 4.3 (3.4-5.1) mmol/L Chloride 106 (98-107) mmol/L Carbon Dioxide 23 (22-32) mmol/L BUN 24 H (9-20) mg/dL Creatinine 1.11 (0.66-1.25) mg/dL Estimated GFR > 60 (>60) mL/min BUN/Creatinine Ratio 21.6 (6-22) Glucose 135 H (80-110) mg/dL Calcium 8.8 (8.4-10.2) mg/dL Magnesium 1.7 (1.6-2.3) mg/dL Total Bilirubin 0.4 (0.2-1.3) mg/dL AST 23 (17-59) IU/L ALT 16 (<50) IU/L Alkaline Phosphatase 107 (38-126) U/L Total Creatine Kinase 76 (55-170) U/L CK-MB (CK-2) TNP CK-MB (CK-2) Rel Index TNP Troponin I < 0.012 (0.01-0.034) ng/mL NT-Pro-B Natriuret Pep (<125) pg/mL Total Protein 6.8 (6.3-8.2) g/dL Albumin 3.9 (3.5-5.0) g/dL Globulin 2.9 (1.7-4.1) g/dL Albumin/Globulin Ratio 1.3 (1.0-2.8) Lipase 71 (23-300) U/L SARS-CoV-2 (PCR) (Negative) 10/31/21 10/31/21 10/31/21 Range/Units 12:15 14:15 15:31 WBC (4.5-11.0) X10^3/uL RBC (4.5-5.9) X10^6/uL Hgb (13.5-17.5) g/dL Hct (41-53) % MCV (80-100) fL MCH (26-34) PG MCHC (30-36) % RDW (11.6-14.8) % Plt Count (150-400) X10^3/uL Neut % (Auto) (50-75) % Lymph % (Auto) (25-40) % Mitchell % (Auto) (3-14) % Eos % (Auto) (2-4) % Baso % (Auto) (0-2) % Neut # (Auto) (6819-0548) /uL Lymph # (Auto) (9139-0686) /uL Mitchell # (Auto) (0-900) /uL Eos # (Auto) (0-450) /uL Baso # (Auto) (0-100) /uL PT (10.1-12.7) SECONDS INR (0.9-1.3) APTT (26-36) SECONDS Sodium (137-145) mmol/L Potassium (3.4-5.1) mmol/L Chloride (98-107) mmol/L Carbon Dioxide (22-32) mmol/L BUN (9-20) mg/dL Creatinine (0.66-1.25) mg/dL Estimated GFR (>60) mL/min BUN/Creatinine Ratio (6-22) Glucose (80-110) mg/dL Calcium (8.4-10.2) mg/dL Magnesium (1.6-2.3) mg/dL Total Bilirubin (0.2-1.3) mg/dL AST (17-59) IU/L ALT (<50) IU/L Alkaline Phosphatase (38-126) U/L Total Creatine Kinase (55-170) U/L CK-MB (CK-2) CK-MB (CK-2) Rel Index Troponin I < 0.012 (0.01-0.034) ng/mL NT-Pro-B Natriuret Pep 123 (<125) pg/mL Total Protein (6.3-8.2) g/dL Albumin (3.5-5.0) g/dL Globulin (1.7-4.1) g/dL Albumin/Globulin Ratio (1.0-2.8) Lipase (23-300) U/L SARS-CoV-2 (PCR) Negative (Negative) 10/31/21 Range/Units 18:04 WBC (4.5-11.0) X10^3/uL RBC (4.5-5.9) X10^6/uL Hgb (13.5-17.5) g/dL Hct (41-53) % MCV (80-100) fL MCH (26-34) PG MCHC (30-36) % RDW (11.6-14.8) % Plt Count (150-400) X10^3/uL Neut % (Auto) (50-75) % Lymph % (Auto) (25-40) % Mitchell % (Auto) (3-14) % Eos % (Auto) (2-4) % Baso % (Auto) (0-2) % Neut # (Auto) (3866-3076) /uL Lymph # (Auto) (9083-1613) /uL Mitchell # (Auto) (0-900) /uL Eos # (Auto) (0-450) /uL Baso # (Auto) (0-100) /uL PT (10.1-12.7) SECONDS INR (0.9-1.3) APTT (26-36) SECONDS Sodium (137-145) mmol/L Potassium (3.4-5.1) mmol/L Chloride (98-107) mmol/L Carbon Dioxide (22-32) mmol/L BUN (9-20) mg/dL Creatinine (0.66-1.25) mg/dL Estimated GFR (>60) mL/min BUN/Creatinine Ratio (6-22) Glucose (80-110) mg/dL Calcium (8.4-10.2) mg/dL Magnesium (1.6-2.3) mg/dL Total Bilirubin (0.2-1.3) mg/dL AST (17-59) IU/L ALT (<50) IU/L Alkaline Phosphatase (38-126) U/L Total Creatine Kinase (55-170) U/L CK-MB (CK-2) CK-MB (CK-2) Rel Index Troponin I < 0.012 (0.01-0.034) ng/mL NT-Pro-B Natriuret Pep (<125) pg/mL Total Protein (6.3-8.2) g/dL Albumin (3.5-5.0) g/dL Globulin (1.7-4.1) g/dL Albumin/Globulin Ratio (1.0-2.8) Lipase (23-300) U/L SARS-CoV-2 (PCR) (Negative) ECG Data Interpretation: EKG 1. Sinus rhythm rate 73 RI interval 152 QRS 96 QTC 425 incomplete r no obvious T elevations no T-wave inversions PAC noted similar to previous EKG in September 2021 EKG 2. Sinus rhythm rate 62 RI interval 168 QRS 90 QTC 4 MDM Narrative Medical decision making narrative: 1400 Dr. Santiago, patient's balance bridge inspector has been updated patient's symptoms and test results. He states that the to get patient to heart catheterization on November 06. However during his admission last month here he was found to have nonbleeding gastric ulcers thought to be causing his pain. They are are attempting a trial of aspirin and Plavix to see if he tolerates those medications which he would need if there is a stent. For now he recommend maximizing medication Support such as beta-víctor and Imdur. States patient can be placed in observation for pain control. He does not require any sore stress test or echocardiogram. Patient continues to have chest discomfort. He is given nitroglycerin without significant relief it did help but some. He is given morphine which did not really help. He is given Protonix dilaudid. He is given his 1st dose of Imdur. It does not appear that he is on if your or of beta-víctor. Dr. Santiago suggestion was to increase these medications but he is not taking them. Dr. Webb hospitalist updated patient's symptoms test results and hospitalist recommendations of possible observation. At this time recommends repeating a 6 hour troponin. In starting Imdur and beta-víctor if he tolerates it. No need for admission of a 6 hour troponin is negative. Signed out to Dr. Rod <Erin Rod, DO - Last Filed: 11/01/21 01:15> Lab Data Labs: Lab Results 10/31/21 10/31/21 10/31/21 Range/Units 12:15 12:15 12:15 WBC 8.4 (4.5-11.0) X10^3/uL RBC 3.95 L (4.5-5.9) X10^6/uL Hgb 12.7 L (13.5-17.5) g/dL Hct 37.5 L (41-53) % MCV 94.9 (80-100) fL MCH 32.2 (26-34) PG MCHC 33.9 (30-36) % RDW 14.0 (11.6-14.8) % Plt Count 227 (150-400) X10^3/uL Neut % (Auto) 69.8 (50-75) % Lymph % (Auto) 22.5 L (25-40) % Mitchell % (Auto) 6.2 (3-14) % Eos % (Auto) 0.9 L (2-4) % Baso % (Auto) 0.6 (0-2) % Neut # (Auto) 5900 (1518-5323) /uL Lymph # (Auto) 1900 (2880-0055) /uL Mitchell # (Auto) 500 (0-900) /uL Eos # (Auto) 100 (0-450) /uL Baso # (Auto) 0 (0-100) /uL PT 12.7 (10.1-12.7) SECONDS INR 1.1 (0.9-1.3) APTT 31 (26-36) SECONDS Sodium 137 (137-145) mmol/L Potassium 4.3 (3.4-5.1) mmol/L Chloride 106 (98-107) mmol/L Carbon Dioxide 23 (22-32) mmol/L BUN 24 H (9-20) mg/dL Creatinine 1.11 (0.66-1.25) mg/dL Estimated GFR > 60 (>60) mL/min BUN/Creatinine Ratio 21.6 (6-22) Glucose 135 H (80-110) mg/dL Calcium 8.8 (8.4-10.2) mg/dL Magnesium 1.7 (1.6-2.3) mg/dL Total Bilirubin 0.4 (0.2-1.3) mg/dL AST 23 (17-59) IU/L ALT 16 (<50) IU/L Alkaline Phosphatase 107 (38-126) U/L Total Creatine Kinase 76 (55-170) U/L CK-MB (CK-2) TNP CK-MB (CK-2) Rel Index TNP Troponin I < 0.012 (0.01-0.034) ng/mL NT-Pro-B Natriuret Pep (<125) pg/mL Total Protein 6.8 (6.3-8.2) g/dL Albumin 3.9 (3.5-5.0) g/dL Globulin 2.9 (1.7-4.1) g/dL Albumin/Globulin Ratio 1.3 (1.0-2.8) Lipase 71 (23-300) U/L SARS-CoV-2 (PCR) (Negative) 10/31/21 10/31/21 10/31/21 Range/Units 12:15 14:15 15:31 WBC (4.5-11.0) X10^3/uL RBC (4.5-5.9) X10^6/uL Hgb (13.5-17.5) g/dL Hct (41-53) % MCV (80-100) fL MCH (26-34) PG MCHC (30-36) % RDW (11.6-14.8) % Plt Count (150-400) X10^3/uL Neut % (Auto) (50-75) % Lymph % (Auto) (25-40) % Mitchell % (Auto) (3-14) % Eos % (Auto) (2-4) % Baso % (Auto) (0-2) % Neut # (Auto) (8578-5079) /uL Lymph # (Auto) (1749-5665) /uL Mitchell # (Auto) (0-900) /uL Eos # (Auto) (0-450) /uL Baso # (Auto) (0-100) /uL PT (10.1-12.7) SECONDS INR (0.9-1.3) APTT (26-36) SECONDS Sodium (137-145) mmol/L Potassium (3.4-5.1) mmol/L Chloride (98-107) mmol/L Carbon Dioxide (22-32) mmol/L BUN (9-20) mg/dL Creatinine (0.66-1.25) mg/dL Estimated GFR (>60) mL/min BUN/Creatinine Ratio (6-22) Glucose (80-110) mg/dL Calcium (8.4-10.2) mg/dL Magnesium (1.6-2.3) mg/dL Total Bilirubin (0.2-1.3) mg/dL AST (17-59) IU/L ALT (<50) IU/L Alkaline Phosphatase (38-126) U/L Total Creatine Kinase (55-170) U/L CK-MB (CK-2) CK-MB (CK-2) Rel Index Troponin I < 0.012 (0.01-0.034) ng/mL NT-Pro-B Natriuret Pep 123 (<125) pg/mL Total Protein (6.3-8.2) g/dL Albumin (3.5-5.0) g/dL Globulin (1.7-4.1) g/dL Albumin/Globulin Ratio (1.0-2.8) Lipase (23-300) U/L SARS-CoV-2 (PCR) Negative (Negative) 10/31/21 Range/Units 18:04 WBC (4.5-11.0) X10^3/uL RBC (4.5-5.9) X10^6/uL Hgb (13.5-17.5) g/dL Hct (41-53) % MCV (80-100) fL MCH (26-34) PG MCHC (30-36) % RDW (11.6-14.8) % Plt Count (150-400) X10^3/uL Neut % (Auto) (50-75) % Lymph % (Auto) (25-40) % Mitchell % (Auto) (3-14) % Eos % (Auto) (2-4) % Baso % (Auto) (0-2) % Neut # (Auto) (7995-4358) /uL Lymph # (Auto) (5088-0837) /uL Mitchell # (Auto) (0-900) /uL Eos # (Auto) (0-450) /uL Baso # (Auto) (0-100) /uL PT (10.1-12.7) SECONDS INR (0.9-1.3) APTT (26-36) SECONDS Sodium (137-145) mmol/L Potassium (3.4-5.1) mmol/L Chloride (98-107) mmol/L Carbon Dioxide (22-32) mmol/L BUN (9-20) mg/dL Creatinine (0.66-1.25) mg/dL Estimated GFR (>60) mL/min BUN/Creatinine Ratio (6-22) Glucose (80-110) mg/dL Calcium (8.4-10.2) mg/dL Magnesium (1.6-2.3) mg/dL Total Bilirubin (0.2-1.3) mg/dL AST (17-59) IU/L ALT (<50) IU/L Alkaline Phosphatase (38-126) U/L Total Creatine Kinase (55-170) U/L CK-MB (CK-2) CK-MB (CK-2) Rel Index Troponin I < 0.012 (0.01-0.034) ng/mL NT-Pro-B Natriuret Pep (<125) pg/mL Total Protein (6.3-8.2) g/dL Albumin (3.5-5.0) g/dL Globulin (1.7-4.1) g/dL Albumin/Globulin Ratio (1.0-2.8) Lipase (23-300) U/L SARS-CoV-2 (PCR) (Negative) MDM Narrative Medical decision making narrative: 1400 Dr. Santiago, patient's balance bridge inspector has been updated patient's symptoms and test results. He states that the to get patient to heart catheterization on November 06. However during his admission last month here he was found to have nonbleeding gastric ulcers thought to be causing his pain. They are are attempting a trial of aspirin and Plavix to see if he tolerates those medications which he would need if there is a stent. For now he recommend maximizing medication Support such as beta-víctor and Imdur. States patient can be placed in observation for pain control. He does not require any sore stress test or echocardiogram. Patient continues to have chest discomfort. He is given nitroglycerin without significant relief it did help but some. He is given morphine which did not really help. He is given Protonix dilaudid. He is given his 1st dose of Imdur. It does not appear that he is on if your or of beta-víctor. Dr. Santiago suggestion was to increase these medications but he is not taking them. Dr. Webb hospitalist updated patient's symptoms test results and hospitalist recommendations of possible observation. At this time recommends repeating a 6 hour troponin. In starting Imdur and beta-víctor if he tolerates it. No need for admission of a 6 hour troponin is negative. Signed out to Dr. Rod. 10/31/21 [place]: Patient signed out to myself. Patient presents with chest pain. He has heart catheterization sent for November 06 he has been started on Plavix yesterday by his balance bridge inspector he is also been found to have nonbleeding gastric ulcers on EGD in the last month what were thought to also potentially be a cause of his pain. He has had negative troponins 6 hours apart, no acute EKG changes. Case was discussed with Cardiology and was recommended that he take Imdur, he is actually on metoprolol ER daily after discussion. Discussed with patient we can observe him overnight in the emergency department for repeat troponin at midnight but the hospitalist would not keep for observation. Patient prefers to return home. Will send prescription for his medications to [facility] he is had his isosorbide today. All questions answered strict return precautions were discussed and patient understands that potential that this is cardiac cause of his pain and return if he is having any worsening or concerning changes. Discharge Plan Departure Patient Disposition: Home Clinical Impression: Chest pain Instructions: DI for Chest Pain Activity Restrictions/Additional Instructions: Follow up with cardiology for your heart cath. You have been found have ulcers on your prior EGD this can also be a source of pain but please monitor your stools for black or tarry stools as been started on aspirin and Plavix daily Please continue your home medications as prescribed including your metoprolol and your new prescription from the balance bridge inspector clopidogrel or Plavix. Please take Imdur once daily as prescribed. You can also increase your omeprazole from 20 mg daily (1 tablet) to 40 mg (2 tablets) daily. You may take narcotic pain medication as prescribed. This medication can make you sleepy do not drive, perform hazardous activities or make any major decisions while taking it. This medication will make you constipated please take a stool softener once to twice daily until stools are soft and regular. Prescription sent to [facility] in [place]. Please return at any time if you are having worsening chest pain, shortness of breath, lightheadedness or passing out, persistent vomiting, black or bloody stools or other new or concerning symptoms. Prescriptions: New isosorbide mononitrate 30 mg tablet extended release 24 hr 30 mg PO DAILY Qty: 30 0RF omeprazole 40 mg capsule,delayed release(DR/EC) 40 mg PO DAILY Qty: 30 0RF hydrocodone-acetaminophen 5-325 mg tablet 1 tab PO Q6H PRN (Reason: pain) Qty: 7 0RF No Action duloxetine 30 mg Capsule,Delayed Release(Dr/Ec) 30 mg PO DAILY colchicine 0.6 mg capsule 0.6 mg PO BID 90 Days Qty: 180 0RF metformin 500 mg tablet 500 mg PO BID tamsulosin 0.4 mg capsule 0.8 mg PO DAILY amlodipine 10 mg tablet 10 mg PO DAILY simvastatin 20 mg tablet 20 mg PO BEDTIME telmisartan-hydrochlorothiazid 80-25 mg tablet 1 tab PO DAILY multivitamin Tablet 1 tab PO DAILY diphenhydramine-acetaminophen [Tylenol PM Extra Strength] 25-500 mg Tablet 2 tab PO BEDTIME PRN (Reason: Pain (Scale Score 1-3)) acetaminophen 325 mg Tablet 975 mg PO Q8H PRN (Reason: Pain (Scale Score 4-6)) Qty: 30 0RF olanzapine 20 mg tablet 20 mg PO BEDTIME Label Comments: take 1 tablet by mouth at bedtime fluoxetine 60 mg tablet 60 mg PO DAILY Label Comments: take 1 tablet by mouth once daily Referrals: Shin José PA-C [Primary Care Provider] - Visit Report Forms: Patient Portal/API
[2021-10-31] MEDS: SODIUM CHLORIDE 0.9% 1,000 ML 1000 ML IV (13:43)
[2021-10-31] MEDS: NITROGLYCERIN 0.4 MG SL TAB SL ×3 (13:44→13:55)
[2021-10-31] MEDS: PANTOPRAZOLE 40 MG VIAL IV (14:19)
[2021-10-31] MEDS: MORPHINE 2 MG/ML INJ IV (14:32)
[2021-10-31 14:47] LABS: NT-proBNP (BNP-Adult 18+) 123 pg/mL (<125)
[2021-10-31 14:52] LABS: Troponin I < 0.012 ng/mL (0.01-0.034)
[2021-10-31] MEDS: HYDROMORPHONE 1 MG INJ IV ×2 (15:23→17:26)
[2021-10-31 16:10] LABS: COVID19 -Nasal RAPID Negative (Negative)
[2021-10-31] MEDS: ISOSORBIDE MONONITRATE ER 30 MG TABLET PO (16:42)
[2021-10-31 18:44] LABS: Troponin I < 0.012 ng/mL (0.01-0.034)
[2021-10-31] MEDS: HYDROMORPHONE 0.5 MG INJ IV (19:25)
== END 2021-10-31 19:49 | disposition home or self-care (01) ==
PROVIDERS: Emergency Medicine; Emergency Provider Emergency Medicine; PCP Student in an Organized Health Care Education/Training Program
DX: R07.9 Chest pain, unspecified (principal); Z20.822 Contact with and (suspected) exposure to COVID-19
CPT/HCPCS: 36415; 71045; 80053; 82550; 83690; 83735; 83880; 84484; 85025; 85610; 85730; 87635; 93005; 93010; 96361; 96374; 96375; 96376; 99284; C9803; C9113; J1170; J2270

== ENCOUNTER → 2022-01-02 12:58 | Outpatient (CLI) | payer MEDICARE, OTHER, SELFPAY ==
[2021-09-14 14:40] VITALS: BMI 27.2
[2022-01-02 16:34] LABS: Cholesterol 96 mg/dL (140-199); HDL Cholesterol 36 mg/dL (40-60); LDL Cholesterol Calculated 3 mg/dL (<100); Triglycerides 287 mg/dL (35-150)
[2022-01-02 17:02] LABS: Thyroid Stimulating Hormone 0.973 uIU/mL (0.47-4.68)
== END ==
PROVIDERS: PCP Student in an Organized Health Care Education/Training Program; Referring Provider Internal Medicine Cardiovascular Disease; Visit Provider Internal Medicine Cardiovascular Disease
DX: E78.5 Hyperlipidemia, unspecified (principal); I47.1 Supraventricular tachycardia
CPT/HCPCS: 36415; 80061; 84443

== ENCOUNTER 2022-05-27 13:06 | Emergency (ER) | payer OTHER, SELFPAY ==
[2021-09-14 14:40] VITALS: BMI 27.2
[2022-05-27] VITALS (20 sets, daily range): BP systolic 95–141; BP diastolic 55–77; PULSE 53–85; RESP 16; TEMP 37.1; O2SAT 94–100; BMI 29.0
--- NOTE | 2022-05-27 13:46 | PC.NURSE ---
good pedal pulses, good cap refil. denies numbness or tingling. neck pain with palpation, mid to lower back pain. c collar applied. hooked up to monitors. vs q 5min
--- NOTE | 2022-05-27 13:54 | DI.CT.S_ITS ---
PROCEDURE: CT HEAD/BRAIN WO CON INDICATIONS: Trauma TECHNIQUE: Noncontrast 4.5 mm thick angled axial sections acquired from the foramen magnum to the vertex, with coronal and sagittal reformats. For radiation dose reduction, the following was used: automated exposure control, adjustment of mA and/or kV according to patient size. COMPARISON: [facility], CT, CT HEAD/BRAIN WO CON, 09/12/2021, 12:21. FINDINGS: Image quality: Excellent. CSF spaces: Basal cisterns are patent. No extra-axial fluid collections. The ventricles are symmetric in size and shape. Brain: No intracranial bleeds or masses. There is cerebral volume loss for age, with resultant ventricular and sulcal prominence. There are periventricular and deep white matter chronic small vessel ischemic changes. There is intracranial internal carotid artery atherosclerosis. Skull and face: Calvarium and visualized facial bones appear intact, without suspicious lesions. Sinuses: Visualized sinuses and mastoids are clear. IMPRESSION: No acute intracranial disease process. Dictated by: Allie Almanzar MD, PhD on 05/27/2022 at 14:23 Approved by: Allie Almanzar MD, PhD on 05/27/2022 at 14:25
--- NOTE | 2022-05-27 13:55 | DI.CT.S_ITS ---
PROCEDURE: CT CHEST ABD PEL WO CON INDICATIONS: fall 6 ftt off ladder, cervical/thoracic, sacral pain TECHNIQUE: After the administration of oral contrast, 5 mm thick sections acquired from the lung apices to the symphysis pubis. 5 mm thick coronal and sagittal reformats acquired, with additional 7 mm coronal MIP reformats through the lungs. For radiation dose reduction, the following was used: automated exposure control, adjustment of mA and/or kV according to patient size. COMPARISON: None. FINDINGS: Image quality: Portions of the lower pelvis are suboptimally evaluated secondary to metallic streak artifact from spine fixation hardware. CHEST: Lungs and pleura: No acute pulmonary opacities. No pleural effusions or pneumothorax. Central and peripheral airways are patent are normal in caliber. Mediastinum: Heart size is normal. No pericardial effusion. No mediastinal adenopathy by CT size criteria. Thoracic aorta and central pulmonary arteries are normal in size. Esophagus is normal in caliber. Mild hiatal hernia. Chest wall: No axillary or supraclavicular adenopathy by size criteria. Thyroid gland is unremarkable . ABDOMEN: Solid organs: Liver is normal in size. Gallbladder has been removed. . Pancreas is normal in contours. Spleen is normal in size. No adrenal nodules. Both kidneys are normal in size, without hydronephrosis. There is a 1.3 cm nonobstructing right renal calcification in the lower pole, Hounsfield units 950. Peritoneum and bowel: Small and large bowel loops are normal in caliber and wall thickness. No free fluid or air. Nodes and vessels: No retroperitoneal or mesenteric adenopathy by size criteria. Aorta and inferior vena cava are normal in size. Miscellaneous: Bowel containing ventral hernia without proximal obstruction or visualized incarceration or strangulation. PELVIS: Genitourinary: Bladder wall thickness is normal. Miscellaneous: No inguinal hernias or adenopathy. Bones: No suspicious bony lesions. No vertebral body compression fractures. Cervical and lumbar fusion are present. IMPRESSION: No visualized acute osseous or visceral injury. Dictated by: Brenda Crabtree M.D. on 05/27/2022 at 14:45 Approved by: Brenda Crabtree M.D. on 05/27/2022 at 14:49
--- NOTE | 2022-05-27 14:11 | DI.CT.S_ITS ---
PROCEDURE: CT CERVICAL SPINE WO CON INDICATIONS: Trauma TECHNIQUE: Noncontrast 3 mm thick sections acquired from the skull base to the T4 level. Sagittal and coronal reformats were then constructed. For radiation dose reduction, the following was used: automated exposure control, adjustment of mA and/or kV according to patient size. COMPARISON: None. FINDINGS: Image quality: Degraded by patient motion artifact Bones: Prior C4-C7 ACDF. Orthopedic hardware is intact. No fractures or dislocations. Visualized superior ribs are intact. Soft tissues: Prevertebral soft tissues are normal in thickness. No paravertebral hematomas. No apical pneumothoraces. IMPRESSION: No fracture. No acute osseous lesion. If symptoms and/or clinical suspicion for pathology persists, evaluation with MRI should be considered for further assessment. Dictated by: Allie Almanzar MD, PhD on 05/27/2022 at 14:25 Approved by: Allie Almanzar MD, PhD on 05/27/2022 at 14:29
[2022-05-27 14:24] LABS: Add Manual Diff / Slide Review NO; Basophils Absolute Auto 0 /uL (0-100); Basophils Percent Auto 0.6 % (0-2); Eosinophils Absolute Auto 0 /uL (0-450); Eosinophils Percent Auto 0.5 % (2-4); Hematocrit 25.5 % (41-53); Hemoglobin 8.3 g/dL (13.5-17.5); Lymphocytes Absolute Auto 1600 /uL (1100-4500); Lymphocytes Percent Auto 24.8 % (25-40); Mean Corpuscular HGB Conc 32.7 % (30-36); Mean Corpuscular Hemoglobin 26.7 PG (26-34); Mean Corpuscular Volume 81.8 fL (80-100); Monocytes Absolute Auto 500 /uL (0-900); Monocytes Percent Auto 7.2 % (3-14); Neutrophils Absolute Auto 4300 /uL (1500-7000); Neutrophils Percent Auto 66.9 % (50-75); Platelet Count 275 X10^3/uL (150-400); Red Blood Cell Count 3.11 X10^6/uL (4.5-5.9); White Blood Cell Count 6.4 X10^3/uL (4.5-11.0)
[2022-05-27] MEDS: ONDANSETRON 4 MG/2 ML INJ IV (14:24)
[2022-05-27] MEDS: MORPHINE 4 MG/ML INJ IV (14:24)
--- NOTE | 2022-05-27 14:24 | ED_ITS ---
HPI - Fall General Chief Complaint: Fall Stated Complaint: Fell off ladder at work Time Seen by Provider: 05/27/22 14:16 Source: patient Mode of arrival: Ambulatory History of Present Illness HPI Narrative: Patient here for complaints mid and lower back pain and neck pain. Patient has history of cervical spine and lumbar spine and sacral surgery. Patient works for [employer]. He was on a ladder at work. He lost his balance, 6 ft from the ground and landed on his buttock and then hit his head. No loss of consciousness. No limb complaints. No numbness tingling or weakness. No bowel or bladder incontinence. No saddle paresthesia. Patient placed in cervical collar. Spinal precautions placed. Related Data Home Medications Medication Instructions Recorded Confirmed amlodipine 10 mg tablet 10 mg PO DAILY 09/10/18 10/14/21 diphenhydramine 25 2 tab PO BEDTIME PRN Pain (Scale 09/10/18 10/14/21 mg-acetaminophen 500 mg tablet Score 1-3) (Tylenol PM Extra Strength) metformin 500 mg tablet 500 mg PO BID 09/10/18 10/14/21 multivitamin 1 tab PO DAILY 09/10/18 10/14/21 simvastatin 20 mg tablet 20 mg PO BEDTIME 09/10/18 10/14/21 tamsulosin 0.4 mg capsule 0.8 mg PO DAILY 09/10/18 10/14/21 telmisartan 80 1 tab PO DAILY 09/10/18 10/14/21 mg-hydrochlorothiazide 25 mg tablet duloxetine 30 mg capsule,delayed 30 mg PO DAILY 04/26/19 10/14/21 release fluoxetine 60 mg tablet 60 mg PO DAILY 12/18/20 10/14/21 olanzapine 20 mg tablet 20 mg PO BEDTIME 12/18/20 10/14/21 Previous Rx's Medication Instructions Recorded acetaminophen 325 mg tablet 975 mg PO Q8H PRN Pain (Scale 09/11/18 Score 4-6) #30 tabs hydrocodone 5 mg-acetaminophen 325 1 tab PO Q6H PRN pain #7 tabs 10/31/21 mg tablet isosorbide mononitrate 30 mg 30 mg PO DAILY #30 tabs 10/31/21 tablet,extended release 24 hr omeprazole 40 mg capsule,delayed 40 mg PO DAILY #30 caps 10/31/21 release hydrocodone 5 mg-acetaminophen 325 1 tab PO Q6H PRN pain #15 tabs 05/27/22 mg tablet ondansetron 4 mg disintegrating 4 mg PO Q8H PRN nausea and 05/27/22 tablet vomiting #10 tabs Allergies Allergy/AdvReac Type Severity Reaction Status Date / Time NSAIDS (Non-Steroidal AdvReac Mild CAN TAKE, Verified 05/27/22 14:24 Anti-Inflamma BUT TRIES [NSAIDS (NON-STEROIDAL TO AVOID ANTI-INFLAMMA] R/T GASTRIC BYPASS Review of Systems Review of Systems Narrative: GENERAL: negative chills, fatigue, malaise, fever, sweats. HEENT: negative sinus pain, ear pain, sore throat RESPIRATORY: negative dyspnea, cough CARDIOVASCULAR: negative chest pain, palpitations GASTROINTESTINAL: negative nausea, vomiting, abdominal pain : negative dysuria, frequency, hematuria MUSCULOSKELETAL: Positive muscle or bony pain SKIN: negative rash, skin lesions NEUROLOGIC: negative weakness, numbness ROS Unobtainable: All systems reviewed & are unremarkable except as noted in HPI and below Patient History Medical History Degenerative disc disease GERD (gastroesophageal reflux disease) History of bleeding ulcers HNP (herniated nucleus pulposus), lumbar HTN (hypertension) Hypertriglyceridemia Nephrolithiasis Non-insulin dependent type 2 diabetes mellitus Surgical History History of cervical spinal surgery History of cholecystectomy History of colonoscopy History of gastric bypass History of vasectomy Status post lumbar surgery Family History Mother No known health problems Father No known health problems Social History household members: spouse and children Smoking Status: Current every day smoker alcohol intake: former Smoking Status: Current every day smoker tobacco type: cigarettes alcohol intake frequency: holidays/special occasions only Substance Use Type: does not use Exam Narrative Exam Narrative: GENERAL: in no distress, not toxic not dyspneic HEAD: Normocephalic. EYES: Pupils equal round ENT: Mucous membranes moist. NECK: Trachea midline. Patient in C-collar, CARDIOVASCULAR: Regular rate and rhythm without murmurs RESPIRATORY: Clear to auscultation. Breath sounds equal bilaterally. No wheezes, rales, or rhonchi. GASTROINTESTINAL: Abdomen soft, non-tender EXTREMITIES: No gross deformities. BACK: No flank tenderness. Spinal precautions patient log rolled. There is midline tenderness but no step-off of the lower thoracic spine down to lumbar spine NEURO: AOx4. SKIN: Warm and dry PSYCH: Not anxious, is cooperative Initial Vital Signs Initial Vital Signs: Vital Signs Temperature 98.8 F 05/27/22 13:19 Pulse Rate 85 05/27/22 13:19 Respiratory Rate 16 05/27/22 13:19 Blood Pressure 98/56 L 05/27/22 13:19 Pulse Oximetry 96 05/27/22 13:19 Oxygen Delivery Method Room Air 05/27/22 13:19 Course Orders Ordered: Discontinued Medications Hydrocodone Bitart/Acetaminophen (Hydrocodone/Acet 5/325 Tablet) 2 tab PO NOW ONE Stop: 05/27/22 15:30 Last Admin: 05/27/22 15:36 Dose: 2 tab Documented By: NR Sodium Chloride (Normal Saline 0.9%) 1,000 mls @ 1,000 mls/hr IV BOLUS ONE Stop: 05/27/22 15:23 Last Infusion: 05/27/22 15:42 Dose: 0 mls/hr Documented By: Admin: 05/27/22 14:28 Dose: 1,000 mls/hr Documented By: AT Morphine Sulfate (Morphine 4 Mg/Ml Inj) 4 mg IV NOW ONE Stop: 05/27/22 13:54 Last Admin: 05/27/22 14:24 Dose: 4 mg Documented By: AT Ondansetron HCl (Ondansetron 4 Mg/2 Ml Inj) 4 mg IV NOW ONE Stop: 05/27/22 13:54 Last Admin: 05/27/22 14:24 Dose: 4 mg Documented By: AT Vital Signs Vital signs: Vital Signs - 8 hr 05/27/22 13:19 05/27/22 13:50 05/27/22 13:50 Temperature 98.8 F Pulse Rate 85 69 Respiratory Rate 16 Blood Pressure 98/56 L 102/59 L Pulse Oximetry 96 99 Oxygen Delivery Method Room Air 05/27/22 14:09 05/27/22 14:10 05/27/22 14:10 Temperature Pulse Rate 65 65 Respiratory Rate Blood Pressure 104/56 L Pulse Oximetry 99 99 Oxygen Delivery Method 05/27/22 14:20 05/27/22 14:20 05/27/22 14:30 Temperature Pulse Rate 63 Respiratory Rate 16 Blood Pressure 98/59 L 95/55 L Pulse Oximetry 98 Oxygen Delivery Method Room Air 05/27/22 14:30 05/27/22 14:40 05/27/22 14:40 Temperature Pulse Rate 63 60 Respiratory Rate Blood Pressure 102/56 L Pulse Oximetry 98 97 Oxygen Delivery Method 05/27/22 14:50 05/27/22 14:50 05/27/22 15:00 Temperature Pulse Rate 60 Respiratory Rate Blood Pressure 109/60 117/63 Pulse Oximetry 97 Oxygen Delivery Method 05/27/22 15:00 05/27/22 15:10 05/27/22 15:10 Temperature Pulse Rate 62 62 Respiratory Rate Blood Pressure 117/65 Pulse Oximetry 100 98 Oxygen Delivery Method 05/27/22 15:20 05/27/22 15:20 05/27/22 15:30 Temperature Pulse Rate 60 Respiratory Rate Blood Pressure 116/65 115/68 Pulse Oximetry 99 Oxygen Delivery Method 05/27/22 15:30 05/27/22 15:40 05/27/22 15:40 Temperature Pulse Rate 58 L 59 L Respiratory Rate Blood Pressure 131/73 Pulse Oximetry 99 95 Oxygen Delivery Method 05/27/22 15:50 05/27/22 15:50 05/27/22 16:00 Temperature Pulse Rate 53 L Respiratory Rate Blood Pressure 123/67 128/72 Pulse Oximetry 98 Oxygen Delivery Method 05/27/22 16:00 05/27/22 16:10 05/27/22 16:10 Temperature Pulse Rate 57 L 66 Respiratory Rate Blood Pressure 141/74 H Pulse Oximetry 96 94 Oxygen Delivery Method MDM - Fall Lab Data 05/27/22 14:17 05/27/22 14:17 Labs: Lab Results 05/27/22 05/27/22 05/27/22 Range/Units 14:17 14:17 14:17 WBC 6.4 (4.5-11.0) X10^3/uL RBC 3.11 L (4.5-5.9) X10^6/uL Hgb 8.3 L (13.5-17.5) g/dL Hct 25.5 L (41-53) % MCV 81.8 (80-100) fL MCH 26.7 (26-34) PG MCHC 32.7 (30-36) % RDW 16.0 H (11.6-14.8) % Plt Count 275 (150-400) X10^3/uL Neut % (Auto) 66.9 (50-75) % Lymph % (Auto) 24.8 L (25-40) % [place] % (Auto) 7.2 (3-14) % Eos % (Auto) 0.5 L (2-4) % Baso % (Auto) 0.6 (0-2) % Neut # (Auto) 4300 (8081-9673) /uL Lymph # (Auto) 1600 (7851-2619) /uL [place] # (Auto) 500 (0-900) /uL Eos # (Auto) 0 (0-450) /uL Baso # (Auto) 0 (0-100) /uL PT 13.4 H (10.1-12.7) SECONDS INR 1.2 (0.9-1.3) APTT 28 (26-36) SECONDS Sodium 135 L (137-145) mmol/L Potassium 3.9 (3.4-5.1) mmol/L Chloride 107 (98-107) mmol/L Carbon Dioxide 20 L (22-32) mmol/L BUN 27 H (9-20) mg/dL Creatinine 1.07 (0.66-1.25) mg/dL Estimated GFR > 60 (>60) mL/min BUN/Creatinine Ratio 25.2 H (6-22) Glucose 145 H (80-110) mg/dL Lactate (0.7-2.1) mmol/L Calcium 8.6 (8.4-10.2) mg/dL Total Bilirubin 0.3 (0.2-1.3) mg/dL AST 20 (17-59) IU/L ALT 17 (<50) IU/L Alkaline Phosphatase 107 (38-126) U/L Total Protein 6.6 (6.3-8.2) g/dL Albumin 3.7 (3.5-5.0) g/dL Globulin 2.9 (1.7-4.1) g/dL Albumin/Globulin Ratio 1.3 (1.0-2.8) Lipase 88 (23-300) U/L U Opiates 300ng/mL cut (Negative) Ur Oxycodone Screen (Negative) Urine Methadone Screen (Negative) Ur Barbiturates Screen (Negative) U Tricyclic Antidepress (Negative) Ur Phencyclidine Scrn (Negative) Ur Amphetamines Screen (Negative) U Methamphetamines Scrn (Negative) Ur MDMA Scrn (Ecstasy) (Negative) U Benzodiazepines Scrn (Negative) Urine Cocaine Screen (Negative) U Marijuana (THC) Screen (Negative) Ethyl Alcohol < 10 ( - 10) mg/dL 05/27/22 05/27/22 Range/Units 14:17 15:32 WBC (4.5-11.0) X10^3/uL RBC (4.5-5.9) X10^6/uL Hgb (13.5-17.5) g/dL Hct (41-53) % MCV (80-100) fL MCH (26-34) PG MCHC (30-36) % RDW (11.6-14.8) % Plt Count (150-400) X10^3/uL Neut % (Auto) (50-75) % Lymph % (Auto) (25-40) % [place] % (Auto) (3-14) % Eos % (Auto) (2-4) % Baso % (Auto) (0-2) % Neut # (Auto) (8165-1345) /uL Lymph # (Auto) (8199-8978) /uL [place] # (Auto) (0-900) /uL Eos # (Auto) (0-450) /uL Baso # (Auto) (0-100) /uL PT (10.1-12.7) SECONDS INR (0.9-1.3) APTT (26-36) SECONDS Sodium (137-145) mmol/L Potassium (3.4-5.1) mmol/L Chloride (98-107) mmol/L Carbon Dioxide (22-32) mmol/L BUN (9-20) mg/dL Creatinine (0.66-1.25) mg/dL Estimated GFR (>60) mL/min BUN/Creatinine Ratio (6-22) Glucose (80-110) mg/dL Lactate 1.4 (0.7-2.1) mmol/L Calcium (8.4-10.2) mg/dL Total Bilirubin (0.2-1.3) mg/dL AST (17-59) IU/L ALT (<50) IU/L Alkaline Phosphatase (38-126) U/L Total Protein (6.3-8.2) g/dL Albumin (3.5-5.0) g/dL Globulin (1.7-4.1) g/dL Albumin/Globulin Ratio (1.0-2.8) Lipase (23-300) U/L U Opiates 300ng/mL cut Positive H (Negative) Ur Oxycodone Screen Negative (Negative) Urine Methadone Screen Negative (Negative) Ur Barbiturates Screen Negative (Negative) U Tricyclic Antidepress Negative (Negative) Ur Phencyclidine Scrn Negative (Negative) Ur Amphetamines Screen Negative (Negative) U Methamphetamines Scrn Negative (Negative) Ur MDMA Scrn (Ecstasy) Negative (Negative) U Benzodiazepines Scrn Negative (Negative) Urine Cocaine Screen Negative (Negative) U Marijuana (THC) Screen Negative (Negative) Ethyl Alcohol ( - 10) mg/dL Urine Dip Bedside Urine Glucose Negative Bedside Urine Bilirubin - Negative Bedside Urine Ketone - Negative Urine Specific [place] 1.010 Bedside Urine Occult Blood - Negative Bedside Urine pH 6.0 Bedside Urine Protein - Negative Bedside Urine Urobilinogen - Negative Bedside Urine Nitrite - Negative Bedside Urine Leukocytes - Negative Esterase Imaging Data CT scan - head: Radiologist's Impression: PROCEDURE:? CT HEAD/BRAIN WO CON ? INDICATIONS:? Trauma ? TECHNIQUE:? Noncontrast 4.5 mm thick angled axial sections acquired from the foramen magnum to the vertex, with coronal and sagittal reformats.? For radiation dose reduction, the following was used:? automated exposure control, adjustment of mA and/or kV according to patient size.? ? COMPARISON:? [facility], CT, CT HEAD/BRAIN WO CON, 09/12/2021, 12:21. ? FINDINGS:? Image quality:? Excellent.? ? CSF spaces:? Basal cisterns are patent.? No extra-axial fluid collections.? The ventricles are symmetric in size and shape.? ? Brain:? No intracranial bleeds or masses.? There is cerebral volume loss for age, with resultant ventricular and sulcal prominence.? There are periventricular and deep white matter chronic small vessel ischemic changes.? There is intracranial internal carotid artery atherosclerosis.? ? Skull and face:? Calvarium and visualized facial bones appear intact, without suspicious lesions.? ? Sinuses:? Visualized sinuses and mastoids are clear.? ? IMPRESSION:? No acute intracranial disease process. ? ? Dictated by: Allie Almanzar MD, PhD on 05/27/2022 at 14:23 ? ? Approved by: Allie Almanzar MD, PhD on 05/27/2022 at 14:25 ? CT - cervical spine: Radiologist's Impression: PROCEDURE:? CT CERVICAL SPINE WO CON ? INDICATIONS:? Trauma ? TECHNIQUE:? Noncontrast 3 mm thick sections acquired from the skull base to the T4 level.? Sagittal and coronal reformats were then constructed.? For radiation dose reduction, the following was used:? automated exposure control, adjustment of mA and/or kV according to patient size.? ? COMPARISON:? None. ? FINDINGS:? Image quality:? Degraded by patient motion artifact ? Bones:? Prior C4-C7 ACDF.? Orthopedic hardware is intact.? No fractures or dislocations.? Visualized superior ribs are intact.? ? Soft tissues:? Prevertebral soft tissues are normal in thickness.? No paravertebral hematomas.? No apical pneumothoraces.? ? ? IMPRESSION:? No fracture. No acute osseous lesion. If symptoms and/or clinical suspicion for pathology persists, evaluation with MRI should be considered for further assessment. ? ? ? Dictated by: Allie Almanzar MD, PhD on 05/27/2022 at 14:25 ? ? Approved by: Allie Almanzar MD, PhD on 05/27/2022 at 14:29 ? CT chest abdomen and pelvis: Radiologist's Impression: PROCEDURE:? CT CHEST ABD PEL WO CON ? INDICATIONS:? fall 6 ftt off ladder, cervical/thoracic, sacral pain ? TECHNIQUE:? After the administration of oral contrast, 5 mm thick sections acquired from the lung apices to the symphysis pubis.? 5 mm thick coronal and sagittal reformats acquired, with additional 7 mm coronal MIP reformats through the lungs.? For radiation dose reduction, the following was used:? automated exposure control, adjustment of mA and/or kV according to patient size.? ? COMPARISON:? None. ? FINDINGS:? Image quality:? Portions of the lower pelvis are suboptimally evaluated seco ndary to metallic streak artifact from spine fixation hardware. ? CHEST:? Lungs and pleura:? No acute pulmonary opacities.? No pleural effusions or pneumothorax.? Central and peripheral airways are patent are normal in caliber.? ? Mediastinum:? Heart size is normal.? No pericardial effusion.? No mediastinal adenopathy by CT size criteria.? Thoracic aorta and central pulmonary arteries are normal i n size.? Esophagus is normal in caliber.? Mild hiatal hernia.? ? Chest wall:? No axillary or supraclavicular adenopathy by size criteria.? Thyroid gland is unremarkable .? ? ? ABDOMEN:? Solid organs:? Liver is normal in size.? Gallbladder has been removed. .? Pancreas is normal in contours.? Spleen is normal in size.? No adrenal nodules.? Both kidneys are normal in size, without hydronephrosis.? There is a 1.3 cm nonobstructing right renal calcification in the lower pole, Hounsfield units 950. ? Peritoneum and bowel:? Small and large bowel loops are normal in caliber and wall thickness.? No free fluid or air.? ? Nodes and vessels:? No retroperitoneal or mesenteric adenopathy by size criteria .? Aorta and inferior vena cava are normal in size.? ? Miscellaneous:? Bowel containing ventral hernia without proximal obstruction or visualized incarceration or strangulation. ? ? PELVIS:? Genitourinary:? Bladder wall thickness is normal.? ? Miscellaneous:? No inguinal hernias or adenopathy.? ? Bones:? No suspicious bony lesions.? No vertebral body compression fractures.? Cervical and lumbar fusion are present. ? IMPRESSION:? ? No visualized acute osseous or visceral injury. ? ? Dictated by: Brenda Crabtree M.D. on 05/27/2022 at 14:45 ? ? Approved by: Brenda Crabtree M.D. on 05/27/2022 at 14:49 ? [facility] Narrative Medical decision making narrative: Patient here for complaints mid and lower back pain and neck pain. Patient has history of cervical spine and lumbar spine and sacral surgery. Patient works for [employer]. He was on a ladder at work. He lost his balance, 6 ft from the ground and landed on his buttock and then hit his head. No loss of consciousness. No limb complaints. No numbness tingling or weakness. No bowel or bladder incontinence. No saddle paresthesia. Patient placed in cervical collar. Spinal precautions placed. After history and exam CBC CMP CT head CT cervical spine CT chest abdomen pelvis ordered, morphine Zofran normal saline ordered [facility] CC: Back pain Complicating co-morbidities: Previous cervical and lumbar and sacral surgery Data collected from: Patient Medical records reviewed: No recent visit for fall Differential considered: Includes but not limited to thoracic fracture lumbar fracture Exam documented above, pertinent findings include: Midline thoracic and lumbar spine tenderness Lab Test results independently reviewed as above. Pertinent findings: WBC 6.4 hemoglobin 8.3 platelets 275, there has been a decrease in hemoglobin from 1 yea r ago that was 12.7 INR 1.2 sodium 135 potassium 3.9 bicarb 20 Imaging studies independently reviewed: CT head CT cervical spine CT chest abdomen pelvis no acute process Consultations: Spoke with primary care provider, physician family medicine physician assistant Shin José, he is aware patient hemoglobin/anemia. This is not new. They will follow up with patient for workmen's comp as well. Treatments: Morphine Zofran normal saline Re-evaluations: C-collar cleared. CT C-spine reassuring as well as remaining CTs. I did review laboratory studies hemoglobin with patient and my discussion with his primary care office. Pain control. Prescription for pain medication provided. L and I forms completed. Return precautions reviewed with him. He desires discharge home. Discussion: Appropriate for discharge home. Laboratory studies and imaging are reassuring. Patient neurologically intact. Hemoglobin levels not new according to primary care office whom I spoke with. Return precautions reviewed with patient. He desires discharge home. Diagnosis: Back contusion Discharge Plan Departure Patient Disposition: Home Clinical Impression: Back contusion, Cervical strain, acute Instructions: DI for Contusion, DI for Cervical Muscle Strain Activity Restrictions/Additional Instructions: No driving operating machinery today or when taking prescribed pain medication. Please your family doctor for re-evaluation of your injuries from today. L and I forms have been completed and your family doctor has been listed for primary care to follow up with. Work note provided to be off tomorrow and today. Return if worse if any questions or concerns Prescriptions: New hydrocodone-acetaminophen 5-325 mg tablet 1 tab PO Q6H PRN (Reason: pain) Qty: 15 0RF ondansetron 4 mg tablet,disintegrating 4 mg PO Q8H PRN (Reason: nausea and vomiting) Qty: 10 0RF No Action duloxetine 30 mg Capsule,Delayed Release(Dr/Ec) 30 mg PO DAILY metformin 500 mg tablet 500 mg PO BID tamsulosin 0.4 mg capsule 0.8 mg PO DAILY amlodipine 10 mg tablet 10 mg PO DAILY simvastatin 20 mg tablet 20 mg PO BEDTIME telmisartan-hydrochlorothiazid 80-25 mg tablet 1 tab PO DAILY multivitamin Tablet 1 tab PO DAILY diphenhydramine-acetaminophen [Tylenol PM Extra Strength] 25-500 mg Tablet 2 tab PO BEDTIME PRN (Reason: Pain (Scale Score 1-3)) acetaminophen 325 mg Tablet 975 mg PO Q8H PRN (Reason: Pain (Scale Score 4-6)) Qty: 30 0RF olanzapine 20 mg tablet 20 mg PO BEDTIME Patient Comments: take 1 tablet by mouth at bedtime fluoxetine 60 mg tablet 60 mg PO DAILY Patient Comments: take 1 tablet by mouth once daily isosorbide mononitrate 30 mg tablet extended release 24 hr 30 mg PO DAILY Qty: 30 0RF omeprazole 40 mg capsule,delayed release(DR/EC) 40 mg PO DAILY Qty: 30 0RF hydrocodone-acetaminophen 5-325 mg tablet 1 tab PO Q6H PRN (Reason: pain) Qty: 7 0RF Referrals: Shin José PA-C [Primary Care Provider] - Stand Alone Forms: Patient Portal/API, Work Release Note
[2022-05-27] MEDS: SODIUM CHLORIDE 0.9% 1,000 ML 1000 ML IV (14:28)
[2022-05-27 14:31] LABS: INR 1.2 (0.9-1.3); Prothrombin Time 13.4 SECONDS (10.1-12.7)
[2022-05-27 14:34] LABS: PTT Partial Thromboplastin Tim 28 SECONDS (26-36)
[2022-05-27 14:37] LABS: Alanine Aminotransferase 17 IU/L (<50); Albumin 3.7 g/dL (3.5-5.0); Albumin Globulin Ratio 1.3 (1.0-2.8); Alkaline Phosphatase 107 U/L (38-126); Aspartate Aminotransferase 20 IU/L (17-59); BUN Creatinine Ratio 25.2 (6-22); Bilirubin Total 0.3 mg/dL (0.2-1.3); Blood Urea Nitrogen 27 mg/dL (9-20); Calcium 8.6 mg/dL (8.4-10.2); Carbon Dioxide 20 mmol/L (22-32); Chloride 107 mmol/L (98-107); Estimated Glomerular Filt Rate > 60 mL/min (>60); Ethanol (ETOH) < 10 mg/dL; Globulin 2.9 g/dL (1.7-4.1); Glucose 145 mg/dL (80-110); HEMOLYSIS < 15 (0-50); Lactate (Lactic Acid) 1.4 mmol/L (0.7-2.1); Lipase 88 U/L (23-300); Potassium 3.9 mmol/L (3.4-5.1); Sodium 135 mmol/L (137-145); Total Protein 6.6 g/dL (6.3-8.2)
[2022-05-27] MEDS: HYDROCODONE/ACET 5/325 TABLET 2 TAB PO (15:36)
[2022-05-27 16:38] LABS: UR Morphine/Opiate cutoff 300 Positive (Negative); Ur Creatinine Normal (Normal); Ur Specific Gravity Normal (Normal); Urine Amphetamines Negative (Negative); Urine Barbiturates Negative (Negative); Urine Benzodiazepines Negative (Negative); Urine Cocaine Negative (Negative); Urine MDMA Negative (Negative); Urine Methadone Negative (Negative); Urine Methamphetamines Negative (Negative); Urine Oxycodone Negative (Negative); Urine Phencyclidine Negative (Negative); Urine Tetrahydrocannabinol Negative (Negative); Urine Tricyclic Antidepressant Negative (Negative); Urine pH Normal (Normal)
== END 2022-05-27 16:52 | disposition home or self-care (01) ==
PROVIDERS: Emergency Provider Emergency Medicine; PCP Student in an Organized Health Care Education/Training Program
DX: S16.1XXA Strain of muscle, fascia and tendon at neck level, initial encounter (principal); S30.0XXA Contusion of lower back and pelvis, initial encounter; W11.XXXA Fall on and from ladder, initial encounter; Y99.0 Civilian activity done for income or pay
CPT/HCPCS: 70450; 71250; 72125; 74176; 80053; 80305; 80320; 81003; 83605; 83690; 85025; 85610; 85730; 96361; 96374; 96375; 99284; J2270; J2405

== ENCOUNTER 2022-08-01 10:07 | Emergency (ER) | payer MEDICARE, OTHER, SELFPAY ==
[2021-09-14 14:40] VITALS: BMI 27.2
[2022-08-01] VITALS (69 sets, daily range): BP systolic 83–150; BP diastolic 48–78; PULSE 55–75; RESP 14–38; TEMP 36.7; O2SAT 91–100
--- NOTE | 2022-08-01 10:27 | DI.RAD.S_ITS ---
PROCEDURE: XR CHEST 1V INDICATIONS: chest pain TECHNIQUE: One view of the chest was acquired. COMPARISON: , CR, XR CHEST 1V, 10/31/2021, 12:12. , CR, XR CHEST 1V, 09/14/2021, 8:35. FINDINGS: Surgical changes and devices: None. Lungs and pleura: Lungs are clear. No pleural effusions or pneumothorax. Mediastinum: Mediastinal contours appear normal. Heart size is normal. Bones and chest wall: No suspicious bony lesions. Overlying soft tissues appear unremarkable. IMPRESSION: No acute cardiopulmonary process. Dictated by: Matthew García M.D. on 08/01/2022 at 10:42 Approved by: Matthew García M.D. on 08/01/2022 at 10:42
[2022-08-01 10:50] LABS: Add Manual Diff / Slide Review NO; Basophils Absolute Auto 0 /uL (0-100); Basophils Percent Auto 0.6 % (0-2); Eosinophils Absolute Auto 0 /uL (0-450); Eosinophils Percent Auto 0.4 % (2-4); Hematocrit 25.6 % (41-53); Hemoglobin 8.2 g/dL (13.5-17.5); Lymphocytes Absolute Auto 600 /uL (1100-4500); Lymphocytes Percent Auto 9.4 % (25-40); Mean Corpuscular HGB Conc 32.1 % (30-36); Mean Corpuscular Hemoglobin 23.6 PG (26-34); Mean Corpuscular Volume 73.4 fL (80-100); Monocytes Absolute Auto 600 /uL (0-900); Monocytes Percent Auto 8.5 % (3-14); Neutrophils Absolute Auto 5400 /uL (1500-7000); Neutrophils Percent Auto 81.1 % (50-75); Platelet Count 229 X10^3/uL (150-400); Red Blood Cell Count 3.48 X10^6/uL (4.5-5.9); Red Cell Distribution Width 18.2 % (11.6-14.8); White Blood Cell Count 6.7 X10^3/uL (4.5-11.0)
[2022-08-01 10:56] LABS: PTT Partial Thromboplastin Tim 27 SECONDS (26-36)
[2022-08-01 10:57] LABS: INR 1.1 (0.9-1.3); Prothrombin Time 12.9 SECONDS (10.1-12.7)
[2022-08-01 11:01] LABS: Alanine Aminotransferase 16 IU/L (<50); Albumin 3.8 g/dL (3.5-5.0); Albumin Globulin Ratio 1.4 (1.0-2.8); Alkaline Phosphatase 105 U/L (38-126); Aspartate Aminotransferase 17 IU/L (17-59); BUN Creatinine Ratio 18.2 (6-22); Bilirubin Total 0.4 mg/dL (0.2-1.3); Blood Urea Nitrogen 22 mg/dL (9-20); Calcium 8.8 mg/dL (8.4-10.2); Carbon Dioxide 23 mmol/L (22-32); Chloride 106 mmol/L (98-107); Creatine Kinase 43 U/L (55-170); Estimated Glomerular Filt Rate > 60 mL/min (>60); Globulin 2.7 g/dL (1.7-4.1); Glucose 91 mg/dL (80-110); HEMOLYSIS < 15 (0-50); Magnesium 1.6 mg/dL (1.6-2.3); Potassium 3.9 mmol/L (3.4-5.1); Sodium 138 mmol/L (137-145); Total Protein 6.5 g/dL (6.3-8.2)
[2022-08-01] MEDS: SODIUM CHLORIDE 0.9% 1,000 ML 1000 ML IV (11:03)
[2022-08-01 11:12] LABS: NT-proBNP (BNP-Adult 18+) 282 pg/mL (<125); Troponin I < 0.012 ng/mL (0.01-0.034)
[2022-08-01 11:28] LABS: Lipase 32 U/L (23-300)
[2022-08-01 11:59] LABS: Procalcitonin 0.04 ng/mL (<0.5)
[2022-08-01 12:14] LABS: COVID19 -Nasal RAPID POSITIVE (Negative)
--- NOTE | 2022-08-01 12:50 | PC.NURSE ---
Pt informed of COVID result
[2022-08-01 13:19] LABS: Troponin I < 0.012 ng/mL (0.01-0.034)
--- NOTE | 2022-08-01 13:56 | ED_ITS ---
HPI - Chest Pain General Chief Complaint: Dizziness Stated Complaint: L side tingling, chest pain, dizzy, one hour Time Seen by Provider: 08/01/22 12:13 Source: patient Mode of arrival: Ambulatory Limitations: no limitations Related Data Home Medications Medication Instructions Recorded Confirmed amlodipine 10 mg tablet 10 mg PO DAILY 09/10/18 10/14/21 diphenhydramine 25 2 tab PO BEDTIME PRN Pain (Scale 09/10/18 10/14/21 mg-acetaminophen 500 mg tablet Score 1-3) (Tylenol PM Extra Strength) metformin 500 mg tablet 500 mg PO BID 09/10/18 10/14/21 multivitamin 1 tab PO DAILY 09/10/18 10/14/21 simvastatin 20 mg tablet 20 mg PO BEDTIME 09/10/18 10/14/21 tamsulosin 0.4 mg capsule 0.8 mg PO DAILY 09/10/18 10/14/21 telmisartan 80 1 tab PO DAILY 09/10/18 10/14/21 mg-hydrochlorothiazide 25 mg tablet duloxetine 30 mg capsule,delayed 30 mg PO DAILY 04/26/19 10/14/21 release fluoxetine 60 mg tablet 60 mg PO DAILY 12/18/20 10/14/21 olanzapine 20 mg tablet 20 mg PO BEDTIME 12/18/20 10/14/21 Previous Rx's Medication Instructions Recorded acetaminophen 325 mg tablet 975 mg PO Q8H PRN Pain (Scale 09/11/18 Score 4-6) #30 tabs hydrocodone 5 mg-acetaminophen 325 1 tab PO Q6H PRN pain #7 tabs 10/31/21 mg tablet isosorbide mononitrate 30 mg 30 mg PO DAILY #30 tabs 10/31/21 tablet,extended release 24 hr omeprazole 40 mg capsule,delayed 40 mg PO DAILY #30 caps 10/31/21 release hydrocodone 5 mg-acetaminophen 325 1 tab PO Q6H PRN pain #15 tabs 05/27/22 mg tablet ondansetron 4 mg disintegrating 4 mg PO Q8H PRN nausea and 05/27/22 tablet vomiting #10 tabs Allergies Allergy/AdvReac Type Severity Reaction Status Date / Time NSAIDS (Non-Steroidal AdvReac Mild CAN TAKE, Verified 05/27/22 14:24 Anti-Inflamma BUT TRIES [NSAIDS (NON-STEROIDAL TO AVOID ANTI-INFLAMMA] R/T GASTRIC BYPASS Patient History Medical History Degenerative disc disease GERD (gastroesophageal reflux disease) History of bleeding ulcers HNP (herniated nucleus pulposus), lumbar HTN (hypertension) Hypertriglyceridemia Nephrolithiasis Non-insulin dependent type 2 diabetes mellitus Surgical History History of cervical spinal surgery History of cholecystectomy History of colonoscopy History of gastric bypass History of vasectomy Status post lumbar surgery Family History Mother No known health problems Father No known health problems Social History household members: spouse and children Smoking Status: Current every day smoker alcohol intake: former Smoking Status: Current every day smoker tobacco type: cigarettes alcohol intake frequency: holidays/special occasions only Substance Use Type: does not use Exam Initial Vital Signs Initial Vital Signs: Vital Signs Temperature 98.1 F 08/01/22 10:15 Pulse Rate 65 08/01/22 10:15 Respiratory Rate 22 08/01/22 10:15 Blood Pressure 94/55 L 08/01/22 10:15 Pulse Oximetry 99 08/01/22 10:15 Oxygen Delivery Method Room Air 08/01/22 10:15 Course Orders Ordered: ED Orders 08/01/22 10:27 XR chest 1V Stat 08/01/22 10:31 EKG-12 Lead Stat 08/01/22 10:36 Complete Blood Count AUTO DIFF Stat Comprehensive Metabolic Panel Stat Lactate (Lactic Acid) Stat Lipase Stat Magnesium Stat NT-proBNP (BNP-Adult 18+) Stat PTT Partial Thromboplastin Neo Stat Procalcitonin Stat Prothrombin Time INR Stat Troponin & CK Cardiac Panel Stat 08/01/22 10:55 Blood Culture Stat 08/01/22 11:48 COVID19 -Nasal RAPID Stat 08/01/22 12:48 Trop I [Troponin I] Stat 08/01/22 14:54 CT head/brain wo con Stat 08/01/22 14:56 CBC Auto Diff [Complete Blood Count AUTO DIFF] Stat Discontinued Medications Aspirin (Aspirin 81 Mg Chew Tab) 324 mg PO NOW ONE Stop: 08/01/22 10:27 Last Admin: 08/01/22 11:02 Dose: Not Given Documented By: SHANDRA Sodium Chloride (Normal Saline 0.9%) 1,000 mls @ 1,000 mls/hr IV BOLUS ONE Stop: 08/01/22 11:58 Last Infusion: 08/01/22 11:45 Dose: 0 mls/hr Documented By: Admin: 08/01/22 11:03 Dose: 1,000 mls/hr Documented By: SHANDRA Meclizine HCl (Meclizine Hcl 12.5 Mg Tablet) 25 mg PO NOW ONE Stop: 08/01/22 14:53 Last Admin: 08/01/22 15:10 Dose: 25 mg Vital Signs Vital signs: Vital Signs - 8 hr 08/01/22 10:15 08/01/22 10:30 08/01/22 10:35 Temperature 98.1 F Pulse Rate 65 68 68 Respiratory Rate 22 14 16 Blood Pressure 94/55 L 88/55 L 91/55 L Pulse Oximetry 99 Oxygen Delivery Method Room Air 08/01/22 10:49 08/01/22 10:49 08/01/22 10:50 Temperature Pulse Rate 64 63 Respiratory Rate 23 17 Blood Pressure 83/48 L Pulse Oximetry 98 98 Oxygen Delivery Method 08/01/22 10:55 08/01/22 10:56 08/01/22 10:56 Temperature Pulse Rate 62 61 Respiratory Rate 20 24 Blood Pressure 93/52 L Pulse Oximetry 99 98 Oxygen Delivery Method 08/01/22 11:00 08/01/22 11:02 08/01/22 11:02 Temperature Pulse Rate 60 66 Respiratory Rate 26 H 24 Blood Pressure 108/51 L Pulse Oximetry 99 96 Oxygen Delivery Method 08/01/22 11:05 08/01/22 11:05 08/01/22 11:10 Temperature Pulse Rate 67 Respiratory Rate 22 Blood Pressure 105/48 L 96/48 L Pulse Oximetry 98 Oxygen Delivery Method 08/01/22 11:10 08/01/22 11:15 08/01/22 11:15 Temperature Pulse Rate 61 61 Respiratory Rate 27 H 20 Blood Pressure 98/55 L Pulse Oximetry 99 100 Oxygen Delivery Method 08/01/22 11:20 08/01/22 11:21 08/01/22 11:21 Temperature Pulse Rate 59 L 59 L Respiratory Rate 15 21 Blood Pressure 104/54 L Pulse Oximetry 99 100 Oxygen Delivery Method 08/01/22 11:25 08/01/22 11:25 08/01/22 11:30 Temperature Pulse Rate 58 L Respiratory Rate 17 Blood Pressure 102/59 L 95/53 L Pulse Oximetry 100 Oxygen Delivery Method Room Air 08/01/22 11:30 08/01/22 11:35 08/01/22 11:35 Temperature Pulse Rate 59 L 69 Respiratory Rate 19 20 Blood Pressure 108/55 L Pulse Oximetry 99 99 Oxygen Delivery Method 08/01/22 11:40 08/01/22 11:40 08/01/22 11:45 Temperature Pulse Rate 60 Respiratory Rate 20 Blood Pressure 106/57 L 131/68 Pulse Oximetry 100 Oxygen Delivery Method 08/01/22 11:45 08/01/22 11:50 08/01/22 11:55 Temperature Pulse Rate 62 60 60 Respiratory Rate 17 18 14 Blood Pressure Pulse Oximetry 99 99 99 Oxygen Delivery Method 08/01/22 12:00 08/01/22 12:00 08/01/22 12:05 Temperature Pulse Rate 61 63 Respiratory Rate 18 20 Blood Pressure 123/60 Pulse Oximetry 98 99 Oxygen Delivery Method 08/01/22 12:10 08/01/22 12:15 08/01/22 12:15 Temperature Pulse Rate 62 62 Respiratory Rate 15 15 Blood Pressure 121/60 Pulse Oximetry 99 99 Oxygen Delivery Method 08/01/22 12:20 08/01/22 12:25 08/01/22 12:30 Temperature Pulse Rate 63 62 Respiratory Rate 21 19 Blood Pressure 100/53 L Pulse Oximetry 99 97 Oxygen Delivery Method 08/01/22 12:30 08/01/22 12:35 08/01/22 12:40 Temperature Pulse Rate 63 63 63 Respiratory Rate 16 21 20 Blood Pressure Pulse Oximetry 98 100 99 Oxygen Delivery Method 08/01/22 12:45 08/01/22 12:46 08/01/22 12:46 Temperature Pulse Rate 68 66 Respiratory Rate 24 23 Blood Pressure 149/70 H Pulse Oximetry 99 100 Oxygen Delivery Method MDM - Chest Pain Lab Data 08/01/22 10:36 08/01/22 10:36 Labs: Lab Results 08/01/22 08/01/22 08/01/22 Range/Units 10:36 10:36 10:36 WBC 6.7 (4.5-11.0) X10^3/uL RBC 3.48 L (4.5-5.9) X10^6/uL Hgb 8.2 L (13.5-17.5) g/dL Hct 25.6 L (41-53) % MCV 73.4 L (80-100) fL MCH 23.6 L (26-34) PG MCHC 32.1 (30-36) % RDW 18.2 H (11.6-14.8) % Plt Count 229 (150-400) X10^3/uL Neut % (Auto) 81.1 H (50-75) % Lymph % (Auto) 9.4 L (25-40) % [place] % (Auto) 8.5 (3-14) % Eos % (Auto) 0.4 L (2-4) % Baso % (Auto) 0.6 (0-2) % Neut # (Auto) 5400 (6721-6897) /uL Lymph # (Auto) 600 L (2499-6170) /uL [place] # (Auto) 600 (0-900) /uL Eos # (Auto) 0 (0-450) /uL Baso # (Auto) 0 (0-100) /uL PT 12.9 H (10.1-12.7) SECONDS INR 1.1 (0.9-1.3) APTT 27 (26-36) SECONDS Sodium 138 (137-145) mmol/L Potassium 3.9 (3.4-5.1) mmol/L Chloride 106 (98-107) mmol/L Carbon Dioxide 23 (22-32) mmol/L BUN 22 H (9-20) mg/dL Creatinine 1.21 (0.66-1.25) mg/dL Estimated GFR > 60 (>60) mL/min BUN/Creatinine Ratio 18.2 (6-22) Glucose 91 (80-110) mg/dL Lactate (0.7-2.1) mmol/L Calcium 8.8 (8.4-10.2) mg/dL Magnesium 1.6 (1.6-2.3) mg/dL Total Bilirubin 0.4 (0.2-1.3) mg/dL AST 17 (17-59) IU/L ALT 16 (<50) IU/L Alkaline Phosphatase 105 (38-126) U/L Total Creatine Kinase 43 L (55-170) U/L CK-MB (CK-2) TNP CK-MB (CK-2) Rel Index TNP Troponin I < 0.012 (0.01-0.034) ng/mL NT-Pro-B Natriuret Pep 282 H (<125) pg/mL Total Protein 6.5 (6.3-8.2) g/dL Albumin 3.8 (3.5-5.0) g/dL Globulin 2.7 (1.7-4.1) g/dL Albumin/Globulin Ratio 1.4 (1.0-2.8) Lipase 32 (23-300) U/L Procalcitonin 0.04 (<0.5) ng/mL SARS-CoV-2 (PCR) (Negative) 08/01/22 08/01/22 08/01/22 Range/Units 10:36 11:48 12:48 WBC (4.5-11.0) X10^3/uL RBC (4.5-5.9) X10^6/uL Hgb (13.5-17.5) g/dL Hct (41-53) % MCV (80-100) fL MCH (26-34) PG MCHC (30-36) % RDW (11.6-14.8) % Plt Count (150-400) X10^3/uL Neut % (Auto) (50-75) % Lymph % (Auto) (25-40) % [place] % (Auto) (3-14) % Eos % (Auto) (2-4) % Baso % (Auto) (0-2) % Neut # (Auto) (8681-8761) /uL Lymph # (Auto) (9326-2574) /uL [place] # (Auto) (0-900) /uL Eos # (Auto) (0-450) /uL Baso # (Auto) (0-100) /uL PT (10.1-12.7) SECONDS INR (0.9-1.3) APTT (26-36) SECONDS Sodium (137-145) mmol/L Potassium (3.4-5.1) mmol/L Chloride (98-107) mmol/L Carbon Dioxide (22-32) mmol/L BUN (9-20) mg/dL Creatinine (0.66-1.25) mg/dL Estimated GFR (>60) mL/min BUN/Creatinine Ratio (6-22) Glucose (80-110) mg/dL Lactate 2.0 (0.7-2.1) mmol/L Calcium (8.4-10.2) mg/dL Magnesium (1.6-2.3) mg/dL Total Bilirubin (0.2-1.3) mg/dL AST (17-59) IU/L ALT (<50) IU/L Alkaline Phosphatase (38-126) U/L Total Creatine Kinase (55-170) U/L CK-MB (CK-2) CK-MB (CK-2) Rel Index Troponin I < 0.012 (0.01-0.034) ng/mL NT-Pro-B Natriuret Pep (<125) pg/mL Total Protein (6.3-8.2) g/dL Albumin (3.5-5.0) g/dL Globulin (1.7-4.1) g/dL Albumin/Globulin Ratio (1.0-2.8) Lipase (23-300) U/L Procalcitonin (<0.5) ng/mL SARS-CoV-2 (PCR) Positive H (Negative) Urine Dip Bedside Urine Glucose Negative Bedside Urine Bilirubin - Negative Bedside Urine Ketone - Negative Urine Specific [place] 1.015 Bedside Urine Occult Blood - Negative Bedside Urine pH 6.0 Bedside Urine Protein - Negative Bedside Urine Urobilinogen - Negative Bedside Urine Nitrite - Negative Bedside Urine Leukocytes - Negative Esterase Imaging Data Chest x-ray: Radiologist's Impression: [address] [id number] XRay Report Signed Patient: Kristian Yin MR#: [id number] : 1955 Acct:[id number] Age/Sex: 67 / M Date of Service: 08/01/22 Loc: ED Accession Number: [id number] ?? Procedure: XR chest 1V Ordering Provider: Erin Rod D.O. PROCEDURE:? XR CHEST 1V ? INDICATIONS:? chest pain ? TECHNIQUE:? One view of the chest was acquired.? ? COMPARISON:? [facility], CR, XR CHEST 1V, 10/31/2021, 12:12.? [facility], CR, XR CHEST 1V, 09/14/2021, 8:35. ? FINDINGS:? ? Surgical changes and devices:? None.? ? Lungs and pleura:? Lungs are clear.? No pleural effusions or pneumothorax.? ? Mediastinum:? Mediastinal contours appear normal.? Heart size is normal.? ? Bones and chest wall:? No suspicious bony lesions.? Overlying soft tissues appear unremarkable.? ? IMPRESSION:? No acute cardiopulmonary process. ? ? ? Dictated by: Matthew García M.D. on 08/01/2022 at 10:42 ? ? Approved by: Matthew García M.D. on 08/01/2022 at 10:42?? ECG Data Attestation: I personally reviewed and interpreted this ECG as follows: Prior ECG tracings: available for review Interpretation: Sinus rhythm rate of 65 ME 156, QRS of [address] elevation. EKG 2. Sinus rhythm rate of 62 ME, 164, QRS of 98, QTC 432. No acute ST changes. No acute ST changes appreciated. Discharge Plan Departure Prescriptions: No Action duloxetine 30 mg Capsule,Delayed Release(Dr/Ec) 30 mg PO DAILY metformin 500 mg tablet 500 mg PO BID tamsulosin 0.4 mg capsule 0.8 mg PO DAILY amlodipine 10 mg tablet 10 mg PO DAILY simvastatin 20 mg tablet 20 mg PO BEDTIME telmisartan-hydrochlorothiazid 80-25 mg tablet 1 tab PO DAILY multivitamin Tablet 1 tab PO DAILY diphenhydramine-acetaminophen [Tylenol PM Extra Strength] 25-500 mg Tablet 2 tab PO BEDTIME PRN (Reason: Pain (Scale Score 1-3)) acetaminophen 325 mg Tablet 975 mg PO Q8H PRN (Reason: Pain (Scale Score 4-6)) Qty: 30 0RF olanzapine 20 mg tablet 20 mg PO BEDTIME Patient Comments: take 1 tablet by mouth at bedtime fluoxetine 60 mg tablet 60 mg PO DAILY Patient Comments: take 1 tablet by mouth once daily isosorbide mononitrate 30 mg tablet extended release 24 hr 30 mg PO DAILY Qty: 30 0RF omeprazole 40 mg capsule,delayed release(DR/EC) 40 mg PO DAILY Qty: 30 0RF hydrocodone-acetaminophen 5-325 mg tablet 1 tab PO Q6H PRN (Reason: pain) Qty: 7 0RF hydrocodone-acetaminophen 5-325 mg tablet 1 tab PO Q6H PRN (Reason: pain) Qty: 15 0RF ondansetron 4 mg tablet,disintegrating 4 mg PO Q8H PRN (Reason: nausea and vomiting) Qty: 10 0RF Referrals: Shin José PA-C [Primary Care Provider] -
--- NOTE | 2022-08-01 14:28 | ED.CHESTPAIN ---
HPI - Chest Pain <Polina Mendoza PA-C - Last Filed: 08/01/22 16:38> General Chief Complaint: Dizziness Stated Complaint: L side tingling, chest pain, dizzy, one hour Time Seen by Provider: 08/01/22 12:13 Source: patient Mode of arrival: Ambulatory Limitations: no limitations History of Present Illness HPI narrative: This is a 67-year-old male presents with concern for dizziness and some chest pain that began this morning about an hour before presenting to the ER patient also reports left-sided tingling and slight bilateral blurred vision. Patient states he has not had symptoms like this before and he feels like he has been in his usual state of health recently. He states the dizziness is worsened with movement. He also endorsed he has been having dark stools for the last 3 weeks or so he says he is had a problem with this on and off. He denies any recent fevers, chills, nausea, vomiting, abdominal pain, speech change, one-sided weakness, shortness of breath or any other symptoms and states he has been feeling fine and in his usual state of health. Related Data Home Medications Medication Instructions Recorded Confirmed amlodipine 10 mg tablet 10 mg PO DAILY 09/10/18 10/14/21 diphenhydramine 25 2 tab PO BEDTIME PRN Pain (Scale 09/10/18 10/14/21 mg-acetaminophen 500 mg tablet Score 1-3) (Tylenol PM Extra Strength) metformin 500 mg tablet 500 mg PO BID 09/10/18 10/14/21 multivitamin 1 tab PO DAILY 09/10/18 10/14/21 simvastatin 20 mg tablet 20 mg PO BEDTIME 09/10/18 10/14/21 tamsulosin 0.4 mg capsule 0.8 mg PO DAILY 09/10/18 10/14/21 telmisartan 80 1 tab PO DAILY 09/10/18 10/14/21 mg-hydrochlorothiazide 25 mg tablet duloxetine 30 mg capsule,delayed 30 mg PO DAILY 04/26/19 10/14/21 release fluoxetine 60 mg tablet 60 mg PO DAILY 12/18/20 10/14/21 olanzapine 20 mg tablet 20 mg PO BEDTIME 12/18/20 10/14/21 Previous Rx's Medication Instructions Recorded acetaminophen 325 mg tablet 975 mg PO Q8H PRN Pain (Scale 09/11/18 Score 4-6) #30 tabs hydrocodone 5 mg-acetaminophen 325 1 tab PO Q6H PRN pain #7 tabs 10/31/21 mg tablet isosorbide mononitrate 30 mg 30 mg PO DAILY #30 tabs 10/31/21 tablet,extended release 24 hr omeprazole 40 mg capsule,delayed 40 mg PO DAILY #30 caps 10/31/21 release hydrocodone 5 mg-acetaminophen 325 1 tab PO Q6H PRN pain #15 tabs 05/27/22 mg tablet ondansetron 4 mg disintegrating 4 mg PO Q8H PRN nausea and 05/27/22 tablet vomiting #10 tabs meclizine 25 mg tablet 25 mg PO DAILY PRN dizziness #30 08/01/22 tabs Allergies Allergy/AdvReac Type Severity Reaction Status Date / Time NSAIDS (Non-Steroidal AdvReac Mild CAN TAKE, Verified 05/27/22 14:24 Anti-Inflamma BUT TRIES [NSAIDS (NON-STEROIDAL TO AVOID ANTI-INFLAMMA] R/T GASTRIC BYPASS Review of Systems <Polina Mendoza PA-C - Last Filed: 08/01/22 16:38> Review of Systems Narrative: See HPI Patient History <Polina Mendoza PA-C - Last Filed: 08/01/22 16:38> Medical History Degenerative disc disease GERD (gastroesophageal reflux disease) History of bleeding ulcers HNP (herniated nucleus pulposus), lumbar HTN (hypertension) Hypertriglyceridemia Nephrolithiasis Non-insulin dependent type 2 diabetes mellitus Surgical History History of cervical spinal surgery History of cholecystectomy History of colonoscopy History of gastric bypass History of vasectomy Status post lumbar surgery Family History Mother No known health problems Father No known health problems Social History household members: spouse and children Smoking Status: Current every day smoker alcohol intake: former Smoking Status: Current every day smoker tobacco type: cigarettes alcohol intake frequency: holidays/special occasions only Substance Use Type: does not use Exam <Polina Mendoza PA-C - Last Filed: 08/01/22 16:38> Narrative Exam Narrative: GENERAL: [67] year old patient appears stated age. Well-developed patient, in mild distress, well-appearing. HEAD: Atraumatic. Normocephalic. EYES: Pupils equal round and reactive. Extraocular motions intact. No scleral icterus. No injection or drainage. ENT: Nose without bleeding, purulent drainage. Airway patent. NECK: Trachea midline. Non tender CARDIOVASCULAR: Regular rate and rhythm without murmurs, gallops, or rubs. RESPIRATORY: Lung sounds are slightly coarse in the bases. Breath sounds equal bilaterally. No wheezes, rales, or rhonchi. GASTROINTESTINAL: Abdomen soft, non-tender, nondistended. EXTREMITIES: No edema or joint tenderness. BACK: Nontender without deformity or crepitance. No flank tenderness. NEURO: AOx3. Cranial nerves 2-12 intact, [id number] intact, EOMs are intact there is slight lateral nystagmus bilaterally. [id number]-rm-[id number] is intact, negative arm drift, equal crab backer bilaterally. SKIN: No rash or erythema of visible areas Initial Vital Signs Initial Vital Signs: Vital Signs Temperature 98.1 F 08/01/22 10:15 Pulse Rate 65 08/01/22 10:15 Respiratory Rate 22 08/01/22 10:15 Blood Pressure 94/55 L 08/01/22 10:15 Pulse Oximetry 99 08/01/22 10:15 Oxygen Delivery Method Room Air 08/01/22 10:15 <Erin Rod DO - Last Filed: 08/01/22 19:07> Initial Vital Signs Initial Vital Signs: Vital Signs Temperature 98.1 F 08/01/22 10:15 Pulse Rate 65 08/01/22 10:15 Respiratory Rate 22 08/01/22 10:15 Blood Pressure 94/55 L 08/01/22 10:15 Pulse Oximetry 99 08/01/22 10:15 Oxygen Delivery Method Room Air 08/01/22 10:15 Scores <Polina Mendoza PA-C - Last Filed: 08/01/22 16:38> HEART Score Heart Score history: Slightly Suspicious Heart Score EKG: Normal Heart Score Age: > or = 65 years old Heart Score risk factors: 1-2 risk factors Heart Score troponin: < or = to normal limit Heart Score Total: 3 <Erin Rod DO - Last Filed: 08/01/22 19:07> HEART Score Heart Score Total: 3 Course <Polina Mendoza PA-C - Last Filed: 08/01/22 16:38> Orders Ordered: ED Orders 08/01/22 10:27 XR chest 1V Stat 08/01/22 10:31 EKG-12 Lead Stat 08/01/22 10:36 Complete Blood Count AUTO DIFF Stat Comprehensive Metabolic Panel Stat Lactate (Lactic Acid) Stat Lipase Stat Magnesium Stat NT-proBNP (BNP-Adult 18+) Stat PTT Partial Thromboplastin Neo Stat Procalcitonin Stat Prothrombin Time INR Stat Troponin & CK Cardiac Panel Stat 08/01/22 10:55 Blood Culture Stat 08/01/22 11:48 COVID19 -Nasal RAPID Stat 08/01/22 12:48 Trop I [Troponin I] Stat 08/01/22 14:54 CT head/brain wo con Stat 08/01/22 15:29 CBC Auto Diff [Complete Blood Count AUTO DIFF] Stat Discontinued Medications Aspirin (Aspirin 81 Mg Chew Tab) 324 mg PO NOW ONE Stop: 08/01/22 10:27 Last Admin: 08/01/22 11:02 Dose: Not Given Documented By: SHANDRA Sodium Chloride (Normal Saline 0.9%) 1,000 mls @ 1,000 mls/hr IV BOLUS ONE Stop: 08/01/22 11:58 Last Infusion: 08/01/22 11:45 Dose: 0 mls/hr Documented By: Admin: 08/01/22 11:03 Dose: 1,000 mls/hr Documented By: SHANDRA Meclizine HCl (Meclizine Hcl 12.5 Mg Tablet) 25 mg PO NOW ONE Stop: 08/01/22 14:53 Last Admin: 08/01/22 15:10 Dose: 25 mg Documented By: ROSITA Vital Signs Vital signs: Vital Signs - 8 hr 08/01/22 11:05 08/01/22 11:05 08/01/22 11:10 Pulse Rate 67 Respiratory Rate 22 Blood Pressure 105/48 L 96/48 L Pulse Oximetry 98 Oxygen Delivery Method 08/01/22 11:10 08/01/22 11:15 08/01/22 11:15 Pulse Rate 61 61 Respiratory Rate 27 H 20 Blood Pressure 98/55 L Pulse Oximetry 99 100 Oxygen Delivery Method 08/01/22 11:20 08/01/22 11:21 08/01/22 11:21 Pulse Rate 59 L 59 L Respiratory Rate 15 21 Blood Pressure 104/54 L Pulse Oximetry 99 100 Oxygen Delivery Method 08/01/22 11:25 08/01/22 11:25 08/01/22 11:30 Pulse Rate 58 L Respiratory Rate 17 Blood Pressure 102/59 L 95/53 L Pulse Oximetry 100 Oxygen Delivery Method Room Air 08/01/22 11:30 08/01/22 11:35 08/01/22 11:35 Pulse Rate 59 L 69 Respiratory Rate 19 20 Blood Pressure 108/55 L Pulse Oximetry 99 99 Oxygen Delivery Method 08/01/22 11:40 08/01/22 11:40 08/01/22 11:45 Pulse Rate 60 Respiratory Rate 20 Blood Pressure 106/57 L 131/68 Pulse Oximetry 100 Oxygen Delivery Method 08/01/22 11:45 08/01/22 11:50 08/01/22 11:55 Pulse Rate 62 60 60 Respiratory Rate 17 18 14 Blood Pressure Pulse Oximetry 99 99 99 Oxygen Delivery Method 08/01/22 12:00 08/01/22 12:00 08/01/22 12:05 Pulse Rate 61 63 Respiratory Rate 18 20 Blood Pressure 123/60 Pulse Oximetry 98 99 Oxygen Delivery Method 08/01/22 12:10 08/01/22 12:15 08/01/22 12:15 Pulse Rate 62 62 Respiratory Rate 15 15 Blood Pressure 121/60 Pulse Oximetry 99 99 Oxygen Delivery Method 08/01/22 12:20 08/01/22 12:25 08/01/22 12:30 Pulse Rate 63 62 Respiratory Rate 21 19 Blood Pressure 100/53 L Pulse Oximetry 99 97 Oxygen Delivery Method 08/01/22 12:30 08/01/22 12:35 08/01/22 12:40 Pulse Rate 63 63 63 Respiratory Rate 16 21 20 Blood Pressure Pulse Oximetry 98 100 99 Oxygen Delivery Method 08/01/22 12:45 08/01/22 12:46 08/01/22 12:46 Pulse Rate 68 66 Respiratory Rate 24 23 Blood Pressure 149/70 H Pulse Oximetry 99 100 Oxygen Delivery Method 08/01/22 13:04 08/01/22 13:04 08/01/22 13:05 Pulse Rate 70 67 Respiratory Rate 20 24 Blood Pressure 125/66 Pulse Oximetry 98 Oxygen Delivery Method 08/01/22 13:10 08/01/22 13:15 08/01/22 13:15 Pulse Rate 70 64 Respiratory Rate 27 H 24 Blood Pressure 115/60 Pulse Oximetry 91 Oxygen Delivery Method 08/01/22 13:20 08/01/22 13:25 08/01/22 13:30 Pulse Rate 61 61 Respiratory Rate 23 20 Blood Pressure 116/63 Pulse Oximetry Oxygen Delivery Method 08/01/22 13:30 08/01/22 13:35 08/01/22 13:40 Pulse Rate 60 68 61 Respiratory Rate 16 30 H 23 Blood Pressure Pulse Oximetry 99 97 Oxygen Delivery Method 08/01/22 13:45 08/01/22 13:45 08/01/22 13:50 Pulse Rate 65 62 Respiratory Rate 27 H 18 Blood Pressure 116/65 Pulse Oximetry 97 95 Oxygen Delivery Method 08/01/22 13:55 08/01/22 14:00 08/01/22 14:00 Pulse Rate 63 65 Respiratory Rate 22 24 Blood Pressure 117/69 Pulse Oximetry 93 Oxygen Delivery Method 08/01/22 14:05 08/01/22 14:10 08/01/22 14:15 Pulse Rate 60 60 Respiratory Rate 20 23 Blood Pressure 125/68 Pulse Oximetry 100 Oxygen Delivery Method 08/01/22 14:15 08/01/22 14:20 08/01/22 14:25 Pulse Rate 60 60 59 L Respiratory Rate 21 22 20 Blood Pressure Pulse Oximetry Oxygen Delivery Method 08/01/22 14:30 08/01/22 14:30 08/01/22 14:35 Pulse Rate 59 L 62 Respiratory Rate 23 19 Blood Pressure 127/78 Pulse Oximetry Oxygen Delivery Method 08/01/22 14:40 08/01/22 14:45 08/01/22 14:45 Pulse Rate 75 62 Respiratory Rate 24 38 H Blood Pressure 121/59 L Pulse Oximetry Oxygen Delivery Method 08/01/22 14:50 08/01/22 14:55 08/01/22 15:00 Pulse Rate 70 66 71 Respiratory Rate 29 H 27 H 27 H Blood Pressure Pulse Oximetry 99 92 Oxygen Delivery Method 08/01/22 15:01 08/01/22 15:01 08/01/22 15:08 Pulse Rate 63 67 Respiratory Rate 25 H 24 Blood Pressure 150/59 H Pulse Oximetry 99 Oxygen Delivery Method 08/01/22 15:09 08/01/22 15:09 08/01/22 15:10 Pulse Rate 66 67 Respiratory Rate 23 31 H Blood Pressure 132/60 Pulse Oximetry Oxygen Delivery Method 08/01/22 15:15 08/01/22 15:15 08/01/22 15:20 Pulse Rate 60 58 L Respiratory Rate 30 H 25 H Blood Pressure 127/60 Pulse Oximetry Oxygen Delivery Method 08/01/22 15:25 08/01/22 15:30 08/01/22 15:31 Pulse Rate 55 L 58 L 61 Respiratory Rate 25 H 27 H 24 Blood Pressure Pulse Oximetry 100 Oxygen Delivery Method 08/01/22 15:31 08/01/22 15:35 08/01/22 15:40 Pulse Rate 59 L 57 L Respiratory Rate 23 26 H Blood Pressure 128/71 Pulse Oximetry Oxygen Delivery Method 08/01/22 15:45 08/01/22 15:45 Pulse Rate 58 L Respiratory Rate 28 H Blood Pressure 124/58 L Pulse Oximetry Oxygen Delivery Method <Erin Rod, - Last Filed: 08/01/22 19:07> Orders Ordered: ED Orders 08/01/22 10:27 XR chest 1V Stat 08/01/22 10:31 EKG-12 Lead Stat 08/01/22 10:36 Complete Blood Count AUTO DIFF Stat Comprehensive Metabolic Panel Stat Lactate (Lactic Acid) Stat Lipase Stat Magnesium Stat NT-proBNP (BNP-Adult 18+) Stat PTT Partial Thromboplastin Neo Stat Procalcitonin Stat Prothrombin Time INR Stat Troponin & CK Cardiac Panel Stat 08/01/22 10:55 Blood Culture Stat 08/01/22 11:48 COVID19 -Nasal RAPID Stat 08/01/22 12:48 Trop I [Troponin I] Stat 08/01/22 14:54 CT head/brain wo con Stat 08/01/22 15:29 CBC Auto Diff [Complete Blood Count AUTO DIFF] Stat Discontinued Medications Aspirin (Aspirin 81 Mg Chew Tab) 324 mg PO NOW ONE Stop: 08/01/22 10:27 Last Admin: 08/01/22 11:02 Dose: Not Given Documented By: KLS Sodium Chloride (Normal Saline 0.9%) 1,000 mls @ 1,000 mls/hr IV BOLUS ONE Stop: 08/01/22 11:58 Last Infusion: 08/01/22 11:45 Dose: 0 mls/hr Documented By: Admin: 08/01/22 11:03 Dose: 1,000 mls/hr Documented By: SHANDRA Meclizine HCl (Meclizine Hcl 12.5 Mg Tablet) 25 mg PO NOW ONE Stop: 08/01/22 14:53 Last Admin: 08/01/22 15:10 Dose: 25 mg Documented By: ROSITA Vital Signs Vital signs: Vital Signs - 8 hr 08/01/22 11:05 08/01/22 11:05 08/01/22 11:10 Pulse Rate 67 Respiratory Rate 22 Blood Pressure 105/48 L 96/48 L Pulse Oximetry 98 Oxygen Delivery Method 08/01/22 11:10 08/01/22 11:15 08/01/22 11:15 Pulse Rate 61 61 Respiratory Rate 27 H 20 Blood Pressure 98/55 L Pulse Oximetry 99 100 Oxygen Delivery Method 08/01/22 11:20 08/01/22 11:21 08/01/22 11:21 Pulse Rate 59 L 59 L Respiratory Rate 15 21 Blood Pressure 104/54 L Pulse Oximetry 99 100 Oxygen Delivery Method 08/01/22 11:25 08/01/22 11:25 08/01/22 11:30 Pulse Rate 58 L Respiratory Rate 17 Blood Pressure 102/59 L 95/53 L Pulse Oximetry 100 Oxygen Delivery Method Room Air 08/01/22 11:30 08/01/22 11:35 08/01/22 11:35 Pulse Rate 59 L 69 Respiratory Rate 19 20 Blood Pressure 108/55 L Pulse Oximetry 99 99 Oxygen Delivery Method 08/01/22 11:40 08/01/22 11:40 08/01/22 11:45 Pulse Rate 60 Respiratory Rate 20 Blood Pressure 106/57 L 131/68 Pulse Oximetry 100 Oxygen Delivery Method 08/01/22 11:45 08/01/22 11:50 08/01/22 11:55 Pulse Rate 62 60 60 Respiratory Rate 17 18 14 Blood Pressure Pulse Oximetry 99 99 99 Oxygen Delivery Method 08/01/22 12:00 08/01/22 12:00 08/01/22 12:05 Pulse Rate 61 63 Respiratory Rate 18 20 Blood Pressure 123/60 Pulse Oximetry 98 99 Oxygen Delivery Method 08/01/22 12:10 08/01/22 12:15 08/01/22 12:15 Pulse Rate 62 62 Respiratory Rate 15 15 Blood Pressure 121/60 Pulse Oximetry 99 99 Oxygen Delivery Method 08/01/22 12:20 08/01/22 12:25 08/01/22 12:30 Pulse Rate 63 62 Respiratory Rate 21 19 Blood Pressure 100/53 L Pulse Oximetry 99 97 Oxygen Delivery Method 08/01/22 12:30 08/01/22 12:35 08/01/22 12:40 Pulse Rate 63 63 63 Respiratory Rate 16 21 20 Blood Pressure Pulse Oximetry 98 100 99 Oxygen Delivery Method 08/01/22 12:45 08/01/22 12:46 08/01/22 12:46 Pulse Rate 68 66 Respiratory Rate 24 23 Blood Pressure 149/70 H Pulse Oximetry 99 100 Oxygen Delivery Method 08/01/22 13:04 08/01/22 13:04 08/01/22 13:05 Pulse Rate 70 67 Respiratory Rate 20 24 Blood Pressure 125/66 Pulse Oximetry 98 Oxygen Delivery Method 08/01/22 13:10 08/01/22 13:15 08/01/22 13:15 Pulse Rate 70 64 Respiratory Rate 27 H 24 Blood Pressure 115/60 Pulse Oximetry 91 Oxygen Delivery Method 08/01/22 13:20 08/01/22 13:25 08/01/22 13:30 Pulse Rate 61 61 Respiratory Rate 23 20 Blood Pressure 116/63 Pulse Oximetry Oxygen Delivery Method 08/01/22 13:30 08/01/22 13:35 08/01/22 13:40 Pulse Rate 60 68 61 Respiratory Rate 16 30 H 23 Blood Pressure Pulse Oximetry 99 97 Oxygen Delivery Method 08/01/22 13:45 08/01/22 13:45 08/01/22 13:50 Pulse Rate 65 62 Respiratory Rate 27 H 18 Blood Pressure 116/65 Pulse Oximetry 97 95 Oxygen Delivery Method 08/01/22 13:55 08/01/22 14:00 08/01/22 14:00 Pulse Rate 63 65 Respiratory Rate 22 24 Blood Pressure 117/69 Pulse Oximetry 93 Oxygen Delivery Method 08/01/22 14:05 08/01/22 14:10 08/01/22 14:15 Pulse Rate 60 60 Respiratory Rate 20 23 Blood Pressure 125/68 Pulse Oximetry 100 Oxygen Delivery Method 08/01/22 14:15 08/01/22 14:20 08/01/22 14:25 Pulse Rate 60 60 59 L Respiratory Rate 21 22 20 Blood Pressure Pulse Oximetry Oxygen Delivery Method 08/01/22 14:30 08/01/22 14:30 08/01/22 14:35 Pulse Rate 59 L 62 Respiratory Rate 23 19 Blood Pressure 127/78 Pulse Oximetry Oxygen Delivery Method 08/01/22 14:40 08/01/22 14:45 08/01/22 14:45 Pulse Rate 75 62 Respiratory Rate 24 38 H Blood Pressure 121/59 L Pulse Oximetry Oxygen Delivery Method 08/01/22 14:50 08/01/22 14:55 08/01/22 15:00 Pulse Rate 70 66 71 Respiratory Rate 29 H 27 H 27 H Blood Pressure Pulse Oximetry 99 92 Oxygen Delivery Method 08/01/22 15:01 08/01/22 15:01 08/01/22 15:08 Pulse Rate 63 67 Respiratory Rate 25 H 24 Blood Pressure 150/59 H Pulse Oximetry 99 Oxygen Delivery Method 08/01/22 15:09 08/01/22 15:09 08/01/22 15:10 Pulse Rate 66 67 Respiratory Rate 23 31 H Blood Pressure 132/60 Pulse Oximetry Oxygen Delivery Method 08/01/22 15:15 08/01/22 15:15 08/01/22 15:20 Pulse Rate 60 58 L Respiratory Rate 30 H 25 H Blood Pressure 127/60 Pulse Oximetry Oxygen Delivery Method 08/01/22 15:25 08/01/22 15:30 08/01/22 15:31 Pulse Rate 55 L 58 L 61 Respiratory Rate 25 H 27 H 24 Blood Pressure Pulse Oximetry 100 Oxygen Delivery Method 08/01/22 15:31 08/01/22 15:35 08/01/22 15:40 Pulse Rate 59 L 57 L Respiratory Rate 23 26 H Blood Pressure 128/71 Pulse Oximetry Oxygen Delivery Method 08/01/22 15:45 08/01/22 15:45 Pulse Rate 58 L Respiratory Rate 28 H Blood Pressure 124/58 L Pulse Oximetry Oxygen Delivery Method MDM - Chest Pain <Polina Mendoza PA-C - Last Filed: 08/01/22 16:38> Differential Diagnosis Differential diagnosis: Likely other (viral illness, GI bleed, TIA/CVA) Medical Records Data Attestation: I reviewed the patient's medical records. Lab Data Attestation: I reviewed the patient's lab results. 08/01/22 15:29 08/01/22 10:36 Labs: Lab Results 08/01/22 08/01/22 08/01/22 Range/Units 10:36 10:36 10:36 WBC 6.7 (4.5-11.0) X10^3/uL RBC 3.48 L (4.5-5.9) X10^6/uL Hgb 8.2 L (13.5-17.5) g/dL Hct 25.6 L (41-53) % MCV 73.4 L (80-100) fL MCH 23.6 L (26-34) PG MCHC 32.1 (30-36) % RDW 18.2 H (11.6-14.8) % Plt Count 229 (150-400) X10^3/uL Neut % (Auto) 81.1 H (50-75) % Lymph % (Auto) 9.4 L (25-40) % Whitfield % (Auto) 8.5 (3-14) % Eos % (Auto) 0.4 L (2-4) % Baso % (Auto) 0.6 (0-2) % Neut # (Auto) 5400 (7931-1446) /uL Lymph # (Auto) 600 L (6866-8873) /uL Whitfield # (Auto) 600 (0-900) /uL Eos # (Auto) 0 (0-450) /uL Baso # (Auto) 0 (0-100) /uL PT 12.9 H (10.1-12.7) SECONDS INR 1.1 (0.9-1.3) APTT 27 (26-36) SECONDS Sodium 138 (137-145) mmol/L Potassium 3.9 (3.4-5.1) mmol/L Chloride 106 (98-107) mmol/L Carbon Dioxide 23 (22-32) mmol/L BUN 22 H (9-20) mg/dL Creatinine 1.21 (0.66-1.25) mg/dL Estimated GFR > 60 (>60) mL/min BUN/Creatinine Ratio 18.2 (6-22) Glucose 91 (80-110) mg/dL Lactate (0.7-2.1) mmol/L Calcium 8.8 (8.4-10.2) mg/dL Magnesium 1.6 (1.6-2.3) mg/dL Total Bilirubin 0.4 (0.2-1.3) mg/dL AST 17 (17-59) IU/L ALT 16 (<50) IU/L Alkaline Phosphatase 105 (38-126) U/L Total Creatine Kinase 43 L (55-170) U/L CK-MB (CK-2) TNP CK-MB (CK-2) Rel Index TNP Troponin I < 0.012 (0.01-0.034) ng/mL NT-Pro-B Natriuret Pep 282 H (<125) pg/mL Total Protein 6.5 (6.3-8.2) g/dL Albumin 3.8 (3.5-5.0) g/dL Globulin 2.7 (1.7-4.1) g/dL Albumin/Globulin Ratio 1.4 (1.0-2.8) Lipase 32 (23-300) U/L Procalcitonin 0.04 (<0.5) ng/mL SARS-CoV-2 (PCR) (Negative) 08/01/22 08/01/22 08/01/22 Range/Units 10:36 11:48 12:48 WBC (4.5-11.0) X10^3/uL RBC (4.5-5.9) X10^6/uL Hgb (13.5-17.5) g/dL Hct (41-53) % MCV (80-100) fL MCH (26-34) PG MCHC (30-36) % RDW (11.6-14.8) % Plt Count (150-400) X10^3/uL Neut % (Auto) (50-75) % Lymph % (Auto) (25-40) % Whitfield % (Auto) (3-14) % Eos % (Auto) (2-4) % Baso % (Auto) (0-2) % Neut # (Auto) (8804-4894) /uL Lymph # (Auto) (9823-8294) /uL Whitfield # (Auto) (0-900) /uL Eos # (Auto) (0-450) /uL Baso # (Auto) (0-100) /uL PT (10.1-12.7) SECONDS INR (0.9-1.3) APTT (26-36) SECONDS Sodium (137-145) mmol/L Potassium (3.4-5.1) mmol/L Chloride (98-107) mmol/L Carbon Dioxide (22-32) mmol/L BUN (9-20) mg/dL Creatinine (0.66-1.25) mg/dL Estimated GFR (>60) mL/min BUN/Creatinine Ratio (6-22) Glucose (80-110) mg/dL Lactate 2.0 (0.7-2.1) mmol/L Calcium (8.4-10.2) mg/dL Magnesium (1.6-2.3) mg/dL Total Bilirubin (0.2-1.3) mg/dL AST (17-59) IU/L ALT (<50) IU/L Alkaline Phosphatase (38-126) U/L Total Creatine Kinase (55-170) U/L CK-MB (CK-2) CK-MB (CK-2) Rel Index Troponin I < 0.012 (0.01-0.034) ng/mL NT-Pro-B Natriuret Pep (<125) pg/mL Total Protein (6.3-8.2) g/dL Albumin (3.5-5.0) g/dL Globulin (1.7-4.1) g/dL Albumin/Globulin Ratio (1.0-2.8) Lipase (23-300) U/L Procalcitonin (<0.5) ng/mL SARS-CoV-2 (PCR) Positive H (Negative) 08/01/22 Range/Units 15:29 WBC 5.6 (4.5-11.0) X10^3/uL RBC 3.61 L (4.5-5.9) X10^6/uL Hgb 8.3 L (13.5-17.5) g/dL Hct 26.6 L (41-53) % MCV 73.6 L (80-100) fL MCH 23.1 L (26-34) PG MCHC 31.3 (30-36) % RDW 18.6 H (11.6-14.8) % Plt Count 210 (150-400) X10^3/uL Neut % (Auto) 77.8 H (50-75) % Lymph % (Auto) 11.4 L (25-40) % Whitfield % (Auto) 9.5 (3-14) % Eos % (Auto) 0.6 L (2-4) % Baso % (Auto) 0.7 (0-2) % Neut # (Auto) 4300 (3655-1563) /uL Lymph # (Auto) 600 L (9004-3689) /uL Whitfield # (Auto) 500 (0-900) /uL Eos # (Auto) 0 (0-450) /uL Baso # (Auto) 0 (0-100) /uL PT (10.1-12.7) SECONDS INR (0.9-1.3) APTT (26-36) SECONDS Sodium (137-145) mmol/L Potassium (3.4-5.1) mmol/L Chloride (98-107) mmol/L Carbon Dioxide (22-32) mmol/L BUN (9-20) mg/dL Creatinine (0.66-1.25) mg/dL Estimated GFR (>60) mL/min BUN/Creatinine Ratio (6-22) Glucose (80-110) mg/dL Lactate (0.7-2.1) mmol/L Calcium (8.4-10.2) mg/dL Magnesium (1.6-2.3) mg/dL Total Bilirubin (0.2-1.3) mg/dL AST (17-59) IU/L ALT (<50) IU/L Alkaline Phosphatase (38-126) U/L Total Creatine Kinase (55-170) U/L CK-MB (CK-2) CK-MB (CK-2) Rel Index Troponin I (0.01-0.034) ng/mL NT-Pro-B Natriuret Pep (<125) pg/mL Total Protein (6.3-8.2) g/dL Albumin (3.5-5.0) g/dL Globulin (1.7-4.1) g/dL Albumin/Globulin Ratio (1.0-2.8) Lipase (23-300) U/L Procalcitonin (<0.5) ng/mL SARS-CoV-2 (PCR) (Negative) Urine Dip Bedside Urine Glucose Negative Bedside Urine Bilirubin - Negative Bedside Urine Ketone - Negative Urine Specific Lee 1.015 Bedside Urine Occult Blood - Negative Bedside Urine pH 6.0 Bedside Urine Protein - Negative Bedside Urine Urobilinogen - Negative Bedside Urine Nitrite - Negative Bedside Urine Leukocytes - Negative Esterase Imaging Data Chest x-ray: Radiologist's Impression: [address] [address] XRay Report Signed Patient: Kristian Yin MR#: [id number] : 1955 Acct:[id number] Age/Sex: 67 / M Date of Service: 08/01/22 Loc: ED Accession Number: [id number] ?? Procedure: XR chest 1V Ordering Provider: Erin Rod D.O. PROCEDURE:? XR CHEST 1V ? INDICATIONS:? chest pain ? TECHNIQUE:? One view of the chest was acquired.? ? COMPARISON:? [facility], CR, XR CHEST 1V, 10/31/2021, 12:12.? [facility], CR, XR CHEST 1V, 09/14/2021, 8:35. ? FINDINGS:? ? Surgical changes and devices:? None.? ? Lungs and pleura:? Lungs are clear.? No pleural effusions or pneumothorax.? ? Mediastinum:? Mediastinal contours appear normal.? Heart size is normal.? ? Bones and chest wall:? No suspicious bony lesions.? Overlying soft tissues appear unremarkable.? ? IMPRESSION:? No acute cardiopulmonary process. ? ? ? Dictated by: Matthew García M.D. on 08/01/2022 at 10:42 ? ? Approved by: Matthew García M.D. on 08/01/2022 at 10:42?? CT scan - head: Radiologist's Impression: [address] [address] [address] Scan Report Signed Patient: Kristian Yin MR#: [id number] : 1955 Acct:[id number] Age/Sex: 67 / M Date of Service: 08/01/22 Loc: ED Accession Number: [id number] ?? Procedure: CT head/brain wo con Ordering Provider: Polina Mendoza P.A-C PROCEDURE:? CT HEAD/BRAIN WO CON ? INDICATIONS:? dizziness ? TECHNIQUE:? Noncontrast 4.5 mm thick angled axial sections acquired from the foramen magnum to the vertex, with coronal and sagittal reformats.? For radiation dose reduction, the following was used:? automated exposure control, adjustment of mA and/or kV according to patient size.? ? COMPARISON:? [facility], CT, CT HEAD/BRAIN WO CON, 05/27/2022, 13:58. ? FINDINGS:? Image quality:? Excellent.? ? CSF spaces:? Basal cisterns are patent.? No extra-axial fluid collections.? The ventricles are symmetric in size and shape.? ? Brain:? No intracranial bleeds or masses.? There is cerebral volume loss for age, with resultant ventricular and sulcal prominence.? There are periventricular and deep white matter chronic small vessel ischemic changes.? There is intracranial internal carotid artery atherosclerosis.? ? Skull and face:? Calvarium and visualized facial bones appear intact, without suspicious lesions.? ? Sinuses:? Visualized sinuses and mastoids are clear.? ? IMPRESSION:? No acute intracranial process. ? ? Dictated by: Christiano Tidwell M.D. on 08/01/2022 at 15:33 ? ? Approved by: Christiano Tidwell M.D. on 08/01/2022 at 15:34?? ECG Data Interpretation: Sinus rhythm, heart rate 62 QTC 432 incomplete right bundle branch block, no ectopy or ST changes noted. reviewed by Dr Rod attending at 1301 Treatment and disposition Shared decision making:: Shared decision-making was used to determine the patient's plan of care and treatment in the emergency department and plan for outpatient follow-up. [facility] Narrative Medical decision making narrative: This is a very well-appearing 67-year-old male presents with concern for multiple symptoms this morning approximate hour before presenting to the ER some dizziness, some chest discomfort and report of left-sided tingling as well as some slight vision changes. Patient had a cardiac workup initiated from triage which returned unremarkable with repeat troponins in the normal range, patient had no persistent chest pain and generally mild symptoms, did get a CT noncontrast after evaluation by provider, had a negative neuro exam and negative CT noncontrast. All of his labs returned looking okay, he did have positive COVID which I think likely explains his symptoms today. Meclizine was provided in the ER and he did have subjective improvement in all of his symptoms. I think TIA/CVA is unlikely in this patient given his positive COVID status and completely unremarkable neuro exam. At time of discharge he denied any chest pain and states that his dizziness and other symptoms had improved significantly. He had unremarkable EKG showing a right bundle branch block, patient did report dark stools in the last 3 weeks but these have been intermittent for him, repeat CBC was obtained for further evaluation which did not show any change despite the fact that the patient did have a L fluid early on in his stay. Prior to assuming care of this patient he did have an episode of hypotension that was fluid responsive. Patient was advised to follow up with primary care provider and consider getting in for a colonoscopy for further evaluation. Patient was prescribed meclizine to be used as needed as an outpatient, advised to follow up with primary care provider. Return precautions provided, follow-up plan discussed, all questions answered. <Erin Rod, DO - Last Filed: 08/01/22 19:07> Lab Data Labs: Lab Results 08/01/22 08/01/22 08/01/22 Range/Units 10:36 10:36 10:36 WBC 6.7 (4.5-11.0) X10^3/uL RBC 3.48 L (4.5-5.9) X10^6/uL Hgb 8.2 L (13.5-17.5) g/dL Hct 25.6 L (41-53) % MCV 73.4 L (80-100) fL MCH 23.6 L (26-34) PG MCHC 32.1 (30-36) % RDW 18.2 H (11.6-14.8) % Plt Count 229 (150-400) X10^3/uL Neut % (Auto) 81.1 H (50-75) % Lymph % (Auto) 9.4 L (25-40) % [place]field % (Auto) 8.5 (3-14) % Eos % (Auto) 0.4 L (2-4) % Baso % (Auto) 0.6 (0-2) % Neut # (Auto) 5400 (3063-0056) /uL Lymph # (Auto) 600 L (1244-9788) /uL [place]field # (Auto) 600 (0-900) /uL Eos # (Auto) 0 (0-450) /uL Baso # (Auto) 0 (0-100) /uL PT 12.9 H (10.1-12.7) SECONDS INR 1.1 (0.9-1.3) APTT 27 (26-36) SECONDS Sodium 138 (137-145) mmol/L Potassium 3.9 (3.4-5.1) mmol/L Chloride 106 (98-107) mmol/L Carbon Dioxide 23 (22-32) mmol/L BUN 22 H (9-20) mg/dL Creatinine 1.21 (0.66-1.25) mg/dL Estimated GFR > 60 (>60) mL/min BUN/Creatinine Ratio 18.2 (6-22) Glucose 91 (80-110) mg/dL Lactate (0.7-2.1) mmol/L Calcium 8.8 (8.4-10.2) mg/dL Magnesium 1.6 (1.6-2.3) mg/dL Total Bilirubin 0.4 (0.2-1.3) mg/dL AST 17 (17-59) IU/L ALT 16 (<50) IU/L Alkaline Phosphatase 105 (38-126) U/L Total Creatine Kinase 43 L (55-170) U/L CK-MB (CK-2) TNP CK-MB (CK-2) Rel Index TNP Troponin I < 0.012 (0.01-0.034) ng/mL NT-Pro-B Natriuret Pep 282 H (<125) pg/mL Total Protein 6.5 (6.3-8.2) g/dL Albumin 3.8 (3.5-5.0) g/dL Globulin 2.7 (1.7-4.1) g/dL Albumin/Globulin Ratio 1.4 (1.0-2.8) Lipase 32 (23-300) U/L Procalcitonin 0.04 (<0.5) ng/mL SARS-CoV-2 (PCR) (Negative) 08/01/22 08/01/22 08/01/22 Range/Units 10:36 11:48 12:48 WBC (4.5-11.0) X10^3/uL RBC (4.5-5.9) X10^6/uL Hgb (13.5-17.5) g/dL Hct (41-53) % MCV (80-100) fL MCH (26-34) PG MCHC (30-36) % RDW (11.6-14.8) % Plt Count (150-400) X10^3/uL Neut % (Auto) (50-75) % Lymph % (Auto) (25-40) % Whitfield % (Auto) (3-14) % Eos % (Auto) (2-4) % Baso % (Auto) (0-2) % Neut # (Auto) (8974-2492) /uL Lymph # (Auto) (1162-1271) /uL Whitfield # (Auto) (0-900) /uL Eos # (Auto) (0-450) /uL Baso # (Auto) (0-100) /uL PT (10.1-12.7) SECONDS INR (0.9-1.3) APTT (26-36) SECONDS Sodium (137-145) mmol/L Potassium (3.4-5.1) mmol/L Chloride (98-107) mmol/L Carbon Dioxide (22-32) mmol/L BUN (9-20) mg/dL Creatinine (0.66-1.25) mg/dL Estimated GFR (>60) mL/min BUN/Creatinine Ratio (6-22) Glucose (80-110) mg/dL Lactate 2.0 (0.7-2.1) mmol/L Calcium (8.4-10.2) mg/dL Magnesium (1.6-2.3) mg/dL Total Bilirubin (0.2-1.3) mg/dL AST (17-59) IU/L ALT (<50) IU/L Alkaline Phosphatase (38-126) U/L Total Creatine Kinase (55-170) U/L CK-MB (CK-2) CK-MB (CK-2) Rel Index Troponin I < 0.012 (0.01-0.034) ng/mL NT-Pro-B Natriuret Pep (<125) pg/mL Total Protein (6.3-8.2) g/dL Albumin (3.5-5.0) g/dL Globulin (1.7-4.1) g/dL Albumin/Globulin Ratio (1.0-2.8) Lipase (23-300) U/L Procalcitonin (<0.5) ng/mL SARS-CoV-2 (PCR) Positive H (Negative) 08/01/22 Range/Units 15:29 WBC 5.6 (4.5-11.0) X10^3/uL RBC 3.61 L (4.5-5.9) X10^6/uL Hgb 8.3 L (13.5-17.5) g/dL Hct 26.6 L (41-53) % MCV 73.6 L (80-100) fL MCH 23.1 L (26-34) PG MCHC 31.3 (30-36) % RDW 18.6 H (11.6-14.8) % Plt Count 210 (150-400) X10^3/uL Neut % (Auto) 77.8 H (50-75) % Lymph % (Auto) 11.4 L (25-40) % Whitfield % (Auto) 9.5 (3-14) % Eos % (Auto) 0.6 L (2-4) % Baso % (Auto) 0.7 (0-2) % Neut # (Auto) 4300 (3274-7930) /uL Lymph # (Auto) 600 L (1580-8382) /uL [place]field # (Auto) 500 (0-900) /uL Eos # (Auto) 0 (0-450) /uL Baso # (Auto) 0 (0-100) /uL PT (10.1-12.7) SECONDS INR (0.9-1.3) APTT (26-36) SECONDS Sodium (137-145) mmol/L Potassium (3.4-5.1) mmol/L Chloride (98-107) mmol/L Carbon Dioxide (22-32) mmol/L BUN (9-20) mg/dL Creatinine (0.66-1.25) mg/dL Estimated GFR (>60) mL/min BUN/Creatinine Ratio (6-22) Glucose (80-110) mg/dL Lactate (0.7-2.1) mmol/L Calcium (8.4-10.2) mg/dL Magnesium (1.6-2.3) mg/dL Total Bilirubin (0.2-1.3) mg/dL AST (17-59) IU/L ALT (<50) IU/L Alkaline Phosphatase (38-126) U/L Total Creatine Kinase (55-170) U/L CK-MB (CK-2) CK-MB (CK-2) Rel Index Troponin I (0.01-0.034) ng/mL NT-Pro-B Natriuret Pep (<125) pg/mL Total Protein (6.3-8.2) g/dL Albumin (3.5-5.0) g/dL Globulin (1.7-4.1) g/dL Albumin/Globulin Ratio (1.0-2.8) Lipase (23-300) U/L Procalcitonin (<0.5) ng/mL SARS-CoV-2 (PCR) (Negative) Urine Dip Bedside Urine Glucose Negative Bedside Urine Bilirubin - Negative Bedside Urine Ketone - Negative Urine Specific Lee 1.015 Bedside Urine Occult Blood - Negative Bedside Urine pH 6.0 Bedside Urine Protein - Negative Bedside Urine Urobilinogen - Negative Bedside Urine Nitrite - Negative Bedside Urine Leukocytes - Negative Esterase ECG Data Attestation: I personally reviewed and interpreted this ECG as follows: Prior ECG tracings: available for review Interpretation: Sinus rhythm, heart rate 62 QTC 432 incomplete right bundle branch block, no ectopy or ST changes noted. reviewed by Dr Rod attending at 1301 [place]: EKG 1 sinus rhythm incomplete right bundle, left anterior fascicular. Rate of 65 GA 156 QRS of [address]TC [address] No acute [address] elevation or depression noted. EKG number rate of 60 2p are 164 QRS of 98 QTC 432[address] No acute ST elevation or depression. No acute change appreciated. Patient has prior EKG from Discharge Plan Departure Patient Disposition: Home Clinical Impression: COVID-19 Instructions: DI for Vertigo Activity Restrictions/Additional Instructions: *You have been diagnosed with COVID-19 *What to do: *Please continue to take your regular medications as directed. [1 ] New medication prescriptions sent to your pharmacy: [Meclizine ] [ ] New medication written as a paper prescription [ ] No new medications given *Please follow up with your primary care provider in 2-3 days, call for an appointment. Let them know you were seen in the Emergency Department and that we ask that you be seen in follow up. We will electronically transmit a record of today's note if your PCP is in our system. All of your labs were looking okay today we did repeat your blood counts after he had been here for a little while to make sure that they were stable, given that you were parted you had some dark stools recently. I would strongly encourage you to follow-up with your primary care provider regarding this he may need to have a colonoscopy done as an outpatient for further evaluation. I suspect that your symptoms today including your dizziness are probably due to your positive COVID status, viruses can often cause dizziness and COVID often causes some chest discomfort as well. Your cardiac labs look good today we also rechecked this. All of your other imaging including your CT of your brain looked okay there was no evidence of bleeding. Please do not hesitate to seek re-evaluation if you feel you have new or worsening symptoms. *If you do not have a primary care provider please contact the [facility] Resource line at [phone]. They will ask some questions about your medical history and help get you set up with a doctor in the community. *Return to Emergency Department if you should have any new, worsening or concerning symptoms, such as [fever greater than 101 F, shaking chills, worsening pain, persistent vomiting or other bothersome symptoms] Prescriptions: New meclizine 25 mg tablet 25 mg PO DAILY PRN (Reason: dizziness) Qty: 30 0RF No Action duloxetine 30 mg Capsule,Delayed Release(Dr/Ec) 30 mg PO DAILY metformin 500 mg tablet 500 mg PO BID tamsulosin 0.4 mg capsule 0.8 mg PO DAILY amlodipine 10 mg tablet 10 mg PO DAILY simvastatin 20 mg tablet 20 mg PO BEDTIME telmisartan-hydrochlorothiazid 80-25 mg tablet 1 tab PO DAILY multivitamin Tablet 1 tab PO DAILY diphenhydramine-acetaminophen [Tylenol PM Extra Strength] 25-500 mg Tablet 2 tab PO BEDTIME PRN (Reason: Pain (Scale Score 1-3)) acetaminophen 325 mg Tablet 975 mg PO Q8H PRN (Reason: Pain (Scale Score 4-6)) Qty: 30 0RF olanzapine 20 mg tablet 20 mg PO BEDTIME Patient Comments: take 1 tablet by mouth at bedtime fluoxetine 60 mg tablet 60 mg PO DAILY Patient Comments: take 1 tablet by mouth once daily isosorbide mononitrate 30 mg tablet extended release 24 hr 30 mg PO DAILY Qty: 30 0RF omeprazole 40 mg capsule,delayed release(DR/EC) 40 mg PO DAILY Qty: 30 0RF hydrocodone-acetaminophen 5-325 mg tablet 1 tab PO Q6H PRN (Reason: pain) Qty: 7 0RF hydrocodone-acetaminophen 5-325 mg tablet 1 tab PO Q6H PRN (Reason: pain) Qty: 15 0RF ondansetron 4 mg tablet,disintegrating 4 mg PO Q8H PRN (Reason: nausea and vomiting) Qty: 10 0RF Referrals: Shin José PA-C [Primary Care Provider] - Stand Alone Forms: Patient Portal/API <Erin Rod DO - Last Filed: 08/01/22 19:07> Cosign ED Attending On[place] Attestation: I was immediately available in the department for consultation. Documentation has been reviewed.
--- NOTE | 2022-08-01 14:54 | DI.CT.S_ITS ---
PROCEDURE: CT HEAD/BRAIN WO CON INDICATIONS: dizziness TECHNIQUE: Noncontrast 4.5 mm thick angled axial sections acquired from the foramen magnum to the vertex, with coronal and sagittal reformats. For radiation dose reduction, the following was used: automated exposure control, adjustment of mA and/or kV according to patient size. COMPARISON: [facility], CT, CT HEAD/BRAIN WO CON, 05/27/2022, 13:58. FINDINGS: Image quality: Excellent. CSF spaces: Basal cisterns are patent. No extra-axial fluid collections. The ventricles are symmetric in size and shape. Brain: No intracranial bleeds or masses. There is cerebral volume loss for age, with resultant ventricular and sulcal prominence. There are periventricular and deep white matter chronic small vessel ischemic changes. There is intracranial internal carotid artery atherosclerosis. Skull and face: Calvarium and visualized facial bones appear intact, without suspicious lesions. Sinuses: Visualized sinuses and mastoids are clear. IMPRESSION: No acute intracranial process. Dictated by: Christiano Tidwell M.D. on 08/01/2022 at 15:33 Approved by: Christiano Tidwell M.D. on 08/01/2022 at 15:34
[2022-08-01] MEDS: MECLIZINE HCL 12.5 MG TABLET 25 MG PO (15:10)
[2022-08-01 15:38] LABS: Add Manual Diff / Slide Review NO; Basophils Absolute Auto 0 /uL (0-100); Basophils Percent Auto 0.7 % (0-2); Eosinophils Absolute Auto 0 /uL (0-450); Eosinophils Percent Auto 0.6 % (2-4); Hematocrit 26.6 % (41-53); Hemoglobin 8.3 g/dL (13.5-17.5); Lymphocytes Absolute Auto 600 /uL (1100-4500); Lymphocytes Percent Auto 11.4 % (25-40); Mean Corpuscular HGB Conc 31.3 % (30-36); Mean Corpuscular Hemoglobin 23.1 PG (26-34); Mean Corpuscular Volume 73.6 fL (80-100); Monocytes Absolute Auto 500 /uL (0-900); Monocytes Percent Auto 9.5 % (3-14); Neutrophils Absolute Auto 4300 /uL (1500-7000); Neutrophils Percent Auto 77.8 % (50-75); Platelet Count 210 X10^3/uL (150-400); Red Blood Cell Count 3.61 X10^6/uL (4.5-5.9); Red Cell Distribution Width 18.6 % (11.6-14.8); White Blood Cell Count 5.6 X10^3/uL (4.5-11.0)
== END 2022-08-01 16:40 | disposition home or self-care (01) ==
PROVIDERS: Emergency Medicine; Emergency Provider Student in an Organized Health Care Education/Training Program; PCP Student in an Organized Health Care Education/Training Program
DX: U07.1 COVID-19 (principal); R07.9 Chest pain, unspecified; H53.8 Other visual disturbances; R42 Dizziness and giddiness
CPT/HCPCS: 36415; 70450; 71045; 80053; 81003; 82550; 83605; 83690; 83735; 83880; 84145; 84484; 85025; 85610; 85730; 87040; 87635; 93005; 99284; 99285; C9803

== ENCOUNTER 2022-08-28 14:35 | Emergency (ER) | payer MEDICARE, OTHER, SELFPAY ==
[2021-09-14 14:40] VITALS: BMI 27.2
[2022-08-28] VITALS (11 sets, daily range): BP systolic 96–136; BP diastolic 52–66; PULSE 54–80; RESP 16–22; TEMP 36.3–36.8; O2SAT 98–100; BMI 29.0
--- NOTE | 2022-08-28 14:46 | DI.RAD.S_ITS ---
PROCEDURE: XR CHEST 1V INDICATIONS: chest pain TECHNIQUE: One view of the chest was acquired. COMPARISON: [facility], CR, XR CHEST 1V, 08/01/2022, 10:27. FINDINGS: Surgical changes and devices: Lower cervical spine plate and screw instrumentation Lungs and pleura: Lungs are clear. No pleural effusions or pneumothorax. Mediastinum: Mediastinal contours appear normal. Heart size is normal. Bones and chest wall: No suspicious bony lesions. Overlying soft tissues appear unremarkable. IMPRESSION: No acute cardiopulmonary findings Approved by: Conner Mendoza M.D. on 08/28/2022 at 14:57
[2022-08-28] MEDS: ASPIRIN 81 MG CHEW TAB 324 MG PO (14:52)
[2022-08-28 15:09] LABS: Add Manual Diff / Slide Review NO; Basophils Absolute Auto 0 /uL (0-100); Basophils Percent Auto 0.7 % (0-2); Eosinophils Absolute Auto 100 /uL (0-450); Eosinophils Percent Auto 1.2 % (2-4); Hematocrit 25.6 % (41-53); Hemoglobin 8.4 g/dL (13.5-17.5); Lymphocytes Absolute Auto 1500 /uL (1100-4500); Lymphocytes Percent Auto 23.8 % (25-40); Mean Corpuscular HGB Conc 32.8 % (30-36); Mean Corpuscular Hemoglobin 24.3 PG (26-34); Mean Corpuscular Volume 74.2 fL (80-100); Monocytes Absolute Auto 400 /uL (0-900); Monocytes Percent Auto 6.5 % (3-14); Neutrophils Absolute Auto 4200 /uL (1500-7000); Neutrophils Percent Auto 67.8 % (50-75); Platelet Count 307 X10^3/uL (150-400); Red Blood Cell Count 3.45 X10^6/uL (4.5-5.9); Red Cell Distribution Width 21.8 % (11.6-14.8); White Blood Cell Count 6.2 X10^3/uL (4.5-11.0)
[2022-08-28 15:22] LABS: PTT Partial Thromboplastin Tim 28 SECONDS (26-36)
[2022-08-28 15:25] LABS: Alanine Aminotransferase 19 IU/L (<50); Albumin 3.6 g/dL (3.5-5.0); Albumin Globulin Ratio 1.2 (1.0-2.8); Alkaline Phosphatase 146 U/L (38-126); Aspartate Aminotransferase 19 IU/L (17-59); BUN Creatinine Ratio 19.3 (6-22); Bilirubin Total 0.3 mg/dL (0.2-1.3); Blood Urea Nitrogen 23 mg/dL (9-20); Calcium 8.4 mg/dL (8.4-10.2); Carbon Dioxide 20 mmol/L (22-32); Chloride 107 mmol/L (98-107); Creatine Kinase 56 U/L (55-170); Estimated Glomerular Filt Rate > 60 mL/min (>60); Glucose 127 mg/dL (80-110); HEMOLYSIS 17 (0-50); Lipase 42 U/L (23-300); Magnesium 1.7 mg/dL (1.6-2.3); Sodium 137 mmol/L (137-145); Total Protein 6.6 g/dL (6.3-8.2)
[2022-08-28 15:30] LABS: Microcytosis 1+
[2022-08-28 15:36] LABS: Troponin I < 0.012 ng/mL (0.01-0.034)
--- NOTE | 2022-08-28 16:16 | ED.CHESTPAIN ---
HPI - Chest Pain General Chief Complaint: Chest Pain Stated Complaint: chest pains tingleing down arm Time Seen by Provider: 08/28/22 16:16 Source: patient Mode of arrival: Ambulatory Limitations: no limitations History of Present Illness HPI narrative: This is a 67-year-old male with history of hypertension, diabetes, prior gastric bypass in 2003 who had cardiac catheterization and was told he had some blockage but not enough 1st stent a year ago he did develop a pseudoaneurysm in his groin post catheterization. Patient states today little after lunch he developed left-sided chest pain that radiates towards his neck but also to his right arm and makes his right arm feel tingling. Feels a little short of breath. He states it is pleuritic and worse with deep inspiration. He states nothing really seems to make it worse otherwise, nothing seems to make it better. He denies any syncope. He denies any diaphoresis. He denies any nausea or vomiting. No new swelling in his extremities. Takes medication for hypertension, diabetes and dyslipidemia. Patient states allergic to NSAIDs but can take aspirin. Prior surgeries included his gastric bypass in 2003 and cardiac catheterization with repair of pseudoaneurysm. States he smokes a half pack daily, no alcohol, no illicit. Patient follows with Dr. Santiago. Related Data Home Medications Medication Instructions Recorded Confirmed amlodipine 10 mg tablet 10 mg PO DAILY 09/10/18 10/14/21 diphenhydramine 25 2 tab PO BEDTIME PRN Pain (Scale 09/10/18 10/14/21 mg-acetaminophen 500 mg tablet Score 1-3) (Tylenol PM Extra Strength) metformin 500 mg tablet 500 mg PO BID 09/10/18 10/14/21 multivitamin 1 tab PO DAILY 09/10/18 10/14/21 simvastatin 20 mg tablet 20 mg PO BEDTIME 09/10/18 10/14/21 tamsulosin 0.4 mg capsule 0.8 mg PO DAILY 09/10/18 10/14/21 telmisartan 80 1 tab PO DAILY 09/10/18 10/14/21 mg-hydrochlorothiazide 25 mg tablet duloxetine 30 mg capsule,delayed 30 mg PO DAILY 04/26/19 10/14/21 release fluoxetine 60 mg tablet 60 mg PO DAILY 12/18/20 10/14/21 olanzapine 20 mg tablet 20 mg PO BEDTIME 12/18/20 10/14/21 Previous Rx's Medication Instructions Recorded acetaminophen 325 mg tablet 975 mg PO Q8H PRN Pain (Scale 09/11/18 Score 4-6) #30 tabs hydrocodone 5 mg-acetaminophen 325 1 tab PO Q6H PRN pain #7 tabs 10/31/21 mg tablet isosorbide mononitrate 30 mg 30 mg PO DAILY #30 tabs 10/31/21 tablet,extended release 24 hr omeprazole 40 mg capsule,delayed 40 mg PO DAILY #30 caps 10/31/21 release hydrocodone 5 mg-acetaminophen 325 1 tab PO Q6H PRN pain #15 tabs 05/27/22 mg tablet ondansetron 4 mg disintegrating 4 mg PO Q8H PRN nausea and 05/27/22 tablet vomiting #10 tabs meclizine 25 mg tablet 25 mg PO DAILY PRN dizziness #30 08/01/22 tabs colchicine 0.6 mg capsule 0.6 mg PO BID 60 days #120 caps 08/28/22 prednisone 20 mg tablet 40 mg PO DAILY #14 tabs 08/28/22 Allergies Allergy/AdvReac Type Severity Reaction Status Date / Time NSAIDS (Non-Steroidal AdvReac Mild CAN TAKE, Verified 05/27/22 14:24 Anti-Inflamma BUT TRIES [NSAIDS (NON-STEROIDAL TO AVOID ANTI-INFLAMMA] R/T GASTRIC BYPASS Review of Systems Review of Systems ROS Unobtainable: All systems reviewed & are unremarkable except as noted in HPI and below Patient History Medical History Degenerative disc disease GERD (gastroesophageal reflux disease) History of bleeding ulcers HNP (herniated nucleus pulposus), lumbar HTN (hypertension) Hypertriglyceridemia Nephrolithiasis Non-insulin dependent type 2 diabetes mellitus Surgical History History of cervical spinal surgery History of cholecystectomy History of colonoscopy History of gastric bypass History of vasectomy Status post lumbar surgery Family History Mother No known health problems Father No known health problems Social History household members: spouse and children Smoking Status: Current every day smoker alcohol intake: former Smoking Status: Current every day smoker tobacco type: cigarettes alcohol intake frequency: holidays/special occasions only Substance Use Type: does not use Exam Narrative Exam Narrative: GENERAL: Alert and oriented x three, elderly male in mild distress. HEENT: Head normocephalic, atraumatic, EOMI, pupils reactive, face symmetric, moist mucous membranes NECK: Supple, full range of motion CARDIOVASCULAR: Regular rate and rhythm without murmurs, rubs or gallops. No JVD. No swelling bilateral lower extremities. No reproducible chest pain. RESPIRATORY: Breath sounds equal bilaterally, no wheezes rales or rhonchi. No tachypnea or accessory muscle use. ABDOMEN: Soft, nontender. Normoactive bowel sounds all 4 quadrants. No guarding or rebound, rigidity, no mass : No CVA tenderness EXTREMITIES: Normal range of motion, no clubbing or edema. Neurovascularly intact NEUROLOGICAL: Cranial nerves II through XII grossly intact. Moving all extremities SKIN: Warm, dry, no petechiae, no rashes or lesions. Initial Vital Signs Initial Vital Signs: Vital Signs Pulse Rate 76 08/28/22 14:41 Pulse Oximetry 100 08/28/22 14:41 Scores HEART Score Heart Score history: Moderately Suspicious Heart Score EKG: Normal Heart Score Age: > or = 65 years old Heart Score risk factors: > 3 risk factors or hx of atherosclerotic disease Heart Score troponin: < or = to normal limit Heart Score Total: 5 Course Orders Ordered: ED Orders 08/28/22 14:43 EKG-12 Lead Stat 08/28/22 14:45 Complete Blood Count AUTO DIFF Stat Comprehensive Metabolic Panel Stat D Dimer Stat Lipase Stat Magnesium Stat PTT Partial Thromboplastin Neo Stat Prothrombin Time INR Stat Troponin & CK Cardiac Panel Stat 08/28/22 14:46 XR chest 1V Stat 08/28/22 16:29 Trop I [Troponin I] Stat 08/28/22 16:39 CT angio chest PE protocol Stat Discontinued Medications Aspirin (Aspirin 81 Mg Chew Tab) 324 mg PO NOW ONE Stop: 08/28/22 14:47 Last Admin: 08/28/22 14:52 Dose: 324 mg Documented By: BABS Morphine Sulfate (Morphine 2 Mg/Ml Inj) 2 mg IV NOW ONE Stop: 08/28/22 16:29 Last Admin: 08/28/22 16:30 Dose: 2 mg Documented By: JG Morphine Sulfate (Morphine 2 Mg/Ml Inj) 2 mg IV NOW ONE Stop: 08/28/22 17:56 Vital Signs Vital signs: Vital Signs - 8 hr 08/28/22 14:42 08/28/22 14:41 08/28/22 14:42 Temperature 98.2 F Pulse Rate 80 76 Respiratory Rate 16 Blood Pressure 108/66 108/66 Pulse Oximetry 100 100 Oxygen Delivery Method Room Air 08/28/22 14:42 08/28/22 15:00 08/28/22 15:00 Temperature Pulse Rate 71 62 Respiratory Rate 21 Blood Pressure 96/55 L Pulse Oximetry 100 99 Oxygen Delivery Method 08/28/22 15:30 08/28/22 15:30 08/28/22 16:00 Temperature Pulse Rate 57 L Respiratory Rate 22 Blood Pressure 97/52 L 105/57 L Pulse Oximetry 99 Oxygen Delivery Method 08/28/22 16:00 08/28/22 16:30 08/28/22 16:31 Temperature Pulse Rate 54 L 56 L Respiratory Rate 16 18 Blood Pressure 126/60 Pulse Oximetry 98 100 Oxygen Delivery Method 08/28/22 16:31 08/28/22 17:00 08/28/22 17:30 Temperature Pulse Rate 56 L 58 L 56 L Respiratory Rate 17 21 18 Blood Pressure 136/60 Pulse Oximetry 99 100 98 Oxygen Delivery Method 08/28/22 17:54 08/28/22 17:35 08/28/22 17:35 Temperature 97.4 F L Pulse Rate 72 58 L Respiratory Rate 16 20 Blood Pressure 129/62 136/60 Pulse Oximetry 100 99 Oxygen Delivery Method Room Air MDM - Chest Pain Lab Data 08/28/22 14:45 08/28/22 14:45 Labs: Lab Results 08/28/22 08/28/22 08/28/22 Range/Units 14:45 14:45 14:45 WBC 6.2 (4.5-11.0) X10^3/uL RBC 3.45 L (4.5-5.9) X10^6/uL Hgb 8.4 L (13.5-17.5) g/dL Hct 25.6 L (41-53) % MCV 74.2 L (80-100) fL MCH 24.3 L (26-34) PG MCHC 32.8 (30-36) % RDW 21.8 H (11.6-14.8) % Plt Count 307 (150-400) X10^3/uL Neut % (Auto) 67.8 (50-75) % Lymph % (Auto) 23.8 L (25-40) % Douglas % (Auto) 6.5 (3-14) % Eos % (Auto) 1.2 L (2-4) % Baso % (Auto) 0.7 (0-2) % Neut # (Auto) 4200 (8655-8184) /uL Lymph # (Auto) 1500 (8228-6529) /uL Douglas # (Auto) 400 (0-900) /uL Eos # (Auto) 100 (0-450) /uL Baso # (Auto) 0 (0-100) /uL RBC Morphology See below Microcytosis 1+ H PT 12.0 (10.1-12.7) SECONDS INR 1.0 (0.9-1.3) APTT 28 (26-36) SECONDS D-Dimer (<500) ng/ml Sodium 137 (137-145) mmol/L Potassium 4.0 (3.4-5.1) mmol/L Chloride 107 (98-107) mmol/L Carbon Dioxide 20 L (22-32) mmol/L BUN 23 H (9-20) mg/dL Creatinine 1.19 (0.66-1.25) mg/dL Estimated GFR > 60 (>60) mL/min BUN/Creatinine Ratio 19.3 (6-22) Glucose 127 H (80-110) mg/dL Calcium 8.4 (8.4-10.2) mg/dL Magnesium 1.7 (1.6-2.3) mg/dL Total Bilirubin 0.3 (0.2-1.3) mg/dL AST 19 (17-59) IU/L ALT 19 (<50) IU/L Alkaline Phosphatase 146 H (38-126) U/L Total Creatine Kinase 56 (55-170) U/L CK-MB (CK-2) TNP CK-MB (CK-2) Rel Index TNP Troponin I < 0.012 (0.01-0.034) ng/mL Total Protein 6.6 (6.3-8.2) g/dL Albumin 3.6 (3.5-5.0) g/dL Globulin 3.0 (1.7-4.1) g/dL Albumin/Globulin Ratio 1.2 (1.0-2.8) Lipase 42 (23-300) U/L 08/28/22 08/28/22 Range/Units 14:45 16:29 WBC (4.5-11.0) X10^3/uL RBC (4.5-5.9) X10^6/uL Hgb (13.5-17.5) g/dL Hct (41-53) % MCV (80-100) fL MCH (26-34) PG MCHC (30-36) % RDW (11.6-14.8) % Plt Count (150-400) X10^3/uL Neut % (Auto) (50-75) % Lymph % (Auto) (25-40) % Douglas % (Auto) (3-14) % Eos % (Auto) (2-4) % Baso % (Auto) (0-2) % Neut # (Auto) (2833-7164) /uL Lymph # (Auto) (8869-1327) /uL Douglas # (Auto) (0-900) /uL Eos # (Auto) (0-450) /uL Baso # (Auto) (0-100) /uL RBC Morphology Microcytosis PT (10.1-12.7) SECONDS INR (0.9-1.3) APTT (26-36) SECONDS D-Dimer 914 H (<500) ng/ml Sodium (137-145) mmol/L Potassium (3.4-5.1) mmol/L Chloride (98-107) mmol/L Carbon Dioxide (22-32) mmol/L BUN (9-20) mg/dL Creatinine (0.66-1.25) mg/dL Estimated GFR (>60) mL/min BUN/Creatinine Ratio (6-22) Glucose (80-110) mg/dL Calcium (8.4-10.2) mg/dL Magnesium (1.6-2.3) mg/dL Total Bilirubin (0.2-1.3) mg/dL AST (17-59) IU/L ALT (<50) IU/L Alkaline Phosphatase (38-126) U/L Total Creatine Kinase (55-170) U/L CK-MB (CK-2) CK-MB (CK-2) Rel Index Troponin I < 0.012 (0.01-0.034) ng/mL Total Protein (6.3-8.2) g/dL Albumin (3.5-5.0) g/dL Globulin (1.7-4.1) g/dL Albumin/Globulin Ratio (1.0-2.8) Lipase (23-300) U/L Imaging Data Chest x-ray: Radiologist's Impression: [address] [address] XRay Report Signed Patient: Kristian Yin MR#: [id number] : 1955 Acct:[id number] Age/Sex: 67 / M Date of Service: 08/28/22 Loc: ED Accession Number: [id number] ?? Procedure: XR chest 1V Ordering Provider: Erin Rod D.O. PROCEDURE:? XR CHEST 1V ? INDICATIONS:? chest pain ? TECHNIQUE:? One view of the chest was acquired.? ? COMPARISON:? [facility], , XR CHEST 1V, 08/01/2022, 10:27. ? FINDINGS:? ? Surgical changes and devices:? Lower cervical spine plate and screw instrumentation ? Lungs and pleura:? Lungs are clear.? No pleural effusions or pneumothorax.? ? Mediastinum:? Mediastinal contours appear normal.? Heart size is normal.? ? Bones and chest wall:? No suspicious bony lesions.? Overlying soft tissues appear unremarkable.? ? IMPRESSION:? No acute cardiopulmonary findings ? ? ? Approved by: Conner Mendoza M.D. on 08/28/2022 at 14:57? CT scan - chest: Radiologist's Impression: [address] [address] [address] Scan Report Signed Patient: Kristian Yin MR#: [id number] : 1955 Acct:[id number] Age/Sex: 67 / M Date of Service: 08/28/22 Loc: ED Accession Number: [id number] ?? Procedure: CT angio chest PE protocol Ordering Provider: Erin Rod D.O. PROCEDURE:? CT ANGIO CHEST PE PROTOCOL ? INDICATIONS:? chest pain, covid in july ? TECHNIQUE:? After the administration of intravenous contrast, 2 mm thick sections acquired from the pulmonary apices to the posterior costophrenic angles.? 3-dimensional maximum intensity projection (MIP) coronal and sagittal reformats were then acquired through the thorax.? For radiation dose reduction, the following was used:? automated exposure control, adjustment of mA and/or kV according to patient size.? ? COMPARISON:? [facility], CT, CT CHEST ABD PEL WO CON, 05/27/2022, 13:58.? [facility], CT, CT ANGIO CHEST PE PROTOCOL, 09/12/2021, 12:21. ? FINDINGS:? Image quality:? Excellent.? ? Pulmonary arteries:? Pulmonary arteries are normal in size, and demonstrate no intraluminal filling defects to suggest central pulmonary embolism.? ? Lungs and pleura:? Lungs are clear.? No pleural effusions or pneumothorax.? Central and peripheral airways are patent.? ? Mediastinum:? Heart size is normal, without pericardial effusion.? No mediastinal or hilar adenopathy.? Thoracic aorta is normal in caliber and enhancement.? Esophagus is normal in caliber, with prominent hiatal hernia.? ? Bones and chest wall:? No suspicious bony lesions.? Ribs and thoracic spine appear intact throughout.? Thyroid gland is unremarkable.? No axillary or supraclavicular adenopathy.? ? Abdomen:? Visualized upper abdominal solid organs appear normal in the early arterial phase of enhancement.? ? IMPRESSION:? ? No pulmonary embolism. ? Prominent hiatal hernia. ? Lungs are clear. ? ? Dictated by: Brenda Crabtree M.D. on 08/28/2022 at 17:05 ? ? Approved by: Brenda Crabtree M.D. on 08/28/2022 at 17:06 ECG Data Attestation: I personally reviewed and interpreted this ECG as follows: Prior ECG tracings: available for review Interpretation: Sinus rhythm, incomplete right bundle-branch, left anterior fascicular. Rate of 70, [place] 156, QRS of 96 and QTC 427. Patient has prior from 08/01/2022 which appears similar. EKG 2. Shows sinus bradycardia incomplete right bundle-branch, left anterior fascicular branch block. Rate of 56, [place] 170, QRS of [address]TC [address] No acute ST changes appreciated. MDM Narrative Medical decision making narrative: This is a 67-year-old male who presents with complaint of chest pain. Patient was here in July tested positive for COVID when he presented for chest pain. Patient does have some risk factors hypertension diabetes dyslipidemia. Workup shows chronic anemia appears to be at baseline, negative coags, renal function and electrolytes are at baseline. LFTs are negative. Patient's chest x-ray was negative. Troponin initially was negative and EKG appears similar to prior from August 01, 2022. 2 hour troponins. With no acute changes and no dynamic changes on 2nd EKG. D-dimer is positive even with age adjustment. This was obtained as patient has had recent COVID infection so has some increased risk for hypercoagulability. CT angio was obtained and is negative except for hiatal hernia, no pulmonary emboli. Discussed with patient about chest pain observation, he does have risk factors, heart score is 5. Spoke with Dr. Webb, hospitalist he did review patient's history feels does not require observation/hospitalization noted that on his last inpatient stay in September had presumptive pericarditis that time EGD also showed some small gastric ulcers. He would recommend prophylactic treatment as patient did not get a complete course of colchicine along with prednisone 40 mg until pain is resolved. Discussed with patient he feels comfortable returning home, he does not recall his treatment or taking his medications back in September of 2021. He has had several visits since then and states additional workup. He states he has been told by Cardiology to follow up in a year from his last visit. Discussed with patient he feels very comfortable with this plan. He will reach out to his cardiology team. We discussed return precautions if he is having any new or worsening changes or other concerning changes. Discharge Plan Departure Patient Disposition: Home Clinical Impression: Chest pain Instructions: DI for Chest Pain Activity Restrictions/Additional Instructions: Please follow up with her cardiology team, call tomorrow to set up an appointment. You were diagnosed with presumptive pericarditis back in September of 2021. With your recent COVID infection you may have had a reoccurrence. It is recommended you take colchicine and steroids for treatment. Take prednisone 40 mg daily until your pain has resolved and then you may taper down under the direction of your physician. Take colchicine twice daily for 60 days. Prescription sent to [facility]. Please return for new or worsening symptoms, worsening chest pain, shortness of breath, lightheadedness or passing out, new swelling in her extremities or other new or concerning changes. Prescriptions: New colchicine 0.6 mg capsule 0.6 mg PO BID 60 Days Qty: 120 0RF prednisone 20 mg tablet 40 mg PO DAILY Qty: 14 0RF No Action duloxetine 30 mg Capsule,Delayed Release(Dr/Ec) 30 mg PO DAILY metformin 500 mg tablet 500 mg PO BID tamsulosin 0.4 mg capsule 0.8 mg PO DAILY amlodipine 10 mg tablet 10 mg PO DAILY simvastatin 20 mg tablet 20 mg PO BEDTIME telmisartan-hydrochlorothiazid 80-25 mg tablet 1 tab PO DAILY multivitamin Tablet 1 tab PO DAILY diphenhydramine-acetaminophen [Tylenol PM Extra Strength] 25-500 mg Tablet 2 tab PO BEDTIME PRN (Reason: Pain (Scale Score 1-3)) acetaminophen 325 mg Tablet 975 mg PO Q8H PRN (Reason: Pain (Scale Score 4-6)) Qty: 30 0RF olanzapine 20 mg tablet 20 mg PO BEDTIME Patient Comments: take 1 tablet by mouth at bedtime fluoxetine 60 mg tablet 60 mg PO DAILY Patient Comments: take 1 tablet by mouth once daily isosorbide mononitrate 30 mg tablet extended release 24 hr 30 mg PO DAILY Qty: 30 0RF omeprazole 40 mg capsule,delayed release(DR/EC) 40 mg PO DAILY Qty: 30 0RF hydrocodone-acetaminophen 5-325 mg tablet 1 tab PO Q6H PRN (Reason: pain) Qty: 7 0RF hydrocodone-acetaminophen 5-325 mg tablet 1 tab PO Q6H PRN (Reason: pain) Qty: 15 0RF ondansetron 4 mg tablet,disintegrating 4 mg PO Q8H PRN (Reason: nausea and vomiting) Qty: 10 0RF meclizine 25 mg tablet 25 mg PO DAILY PRN (Reason: dizziness) Qty: 30 0RF Referrals: Shin José PA-C [Primary Care Provider] - Stand Alone Forms: Patient Portal/API
[2022-08-28] MEDS: MORPHINE 2 MG/ML INJ IV (16:30)
[2022-08-28 16:32] LABS: D Dimer 914 ng/ml (<500)
--- NOTE | 2022-08-28 16:39 | DI.CT.S_ITS ---
PROCEDURE: CT ANGIO CHEST PE PROTOCOL INDICATIONS: chest pain, covid in july TECHNIQUE: After the administration of intravenous contrast, 2 mm thick sections acquired from the pulmonary apices to the posterior costophrenic angles. 3-dimensional maximum intensity projection (MIP) coronal and sagittal reformats were then acquired through the thorax. For radiation dose reduction, the following was used: automated exposure control, adjustment of mA and/or kV according to patient size. COMPARISON: [facility], CT, CT CHEST ABD PEL WO CON, 05/27/2022, 13:58. [facility], CT, CT ANGIO CHEST PE PROTOCOL, 09/12/2021, 12:21. FINDINGS: Image quality: Excellent. Pulmonary arteries: Pulmonary arteries are normal in size, and demonstrate no intraluminal filling defects to suggest central pulmonary embolism. Lungs and pleura: Lungs are clear. No pleural effusions or pneumothorax. Central and peripheral airways are patent. Mediastinum: Heart size is normal, without pericardial effusion. No mediastinal or hilar adenopathy. Thoracic aorta is normal in caliber and enhancement. Esophagus is normal in caliber, with prominent hiatal hernia. Bones and chest wall: No suspicious bony lesions. Ribs and thoracic spine appear intact throughout. Thyroid gland is unremarkable. No axillary or supraclavicular adenopathy. Abdomen: Visualized upper abdominal solid organs appear normal in the early arterial phase of enhancement. IMPRESSION: No pulmonary embolism. Prominent hiatal hernia. Lungs are clear. Dictated by: Brenda Crabtree M.D. on 08/28/2022 at 17:05 Approved by: Brenda Crabtree M.D. on 08/28/2022 at 17:06
[2022-08-28 16:58] LABS: Troponin I < 0.012 ng/mL (0.01-0.034)
== END 2022-08-28 18:00 | disposition home or self-care (01) ==
PROVIDERS: Emergency Provider Emergency Medicine; PCP Student in an Organized Health Care Education/Training Program
DX: R07.9 Chest pain, unspecified (principal); M54.2 Cervicalgia; Z79.899 Other long term (current) drug therapy; Z86.16 Personal history of COVID-19
CPT/HCPCS: 36415; 71045; 71275; 80053; 82550; 83690; 83735; 84484; 85025; 85379; 85610; 85730; 93005; 96374; 99284; J2270; Q9967

== ENCOUNTER 2023-01-16 10:18 | Observation (INO) | payer OTHER, SELFPAY ==
[2021-09-14 14:40] VITALS: BMI 27.2
[2023-01-16] VITALS (36 sets, daily range): BP systolic 95–155; BP diastolic 50–68; PULSE 53–78; RESP 14–26; TEMP 36.2–36.7; O2SAT 97–100; BMI 28.2
--- NOTE | 2023-01-16 10:26 | DI.RAD.S_ITS ---
PROCEDURE: XR CHEST 1V INDICATIONS: chest pain TECHNIQUE: One view of the chest was acquired. COMPARISON: [facility], CR, XR CHEST 1V, 08/28/2022, 15:02. FINDINGS: Surgical changes and devices: None. Lungs and pleura: Lungs are clear. No pleural effusions or pneumothorax. Mediastinum: Mediastinal contours appear normal. Heart size is normal. Bones and chest wall: No suspicious bony lesions. Overlying soft tissues appear unremarkable. IMPRESSION: Portable chest within normal limits for age. Dictated by: Micki Metzger M.D. on 01/16/2023 at 11:14 Approved by: Micki Metzger M.D. on 01/16/2023 at 11:14
--- NOTE | 2023-01-16 10:29 | ED_ITS ---
HPI - Chest Pain General Chief Complaint: Chest Pain Stated Complaint: Chest Pain, SOB Time Seen by Provider: 01/16/23 10:22 Source: patient and EMS Mode of arrival: EMS Limitations: no limitations History of Present Illness HPI narrative: Patient 68-year-old male history of hypertension hyperlipidemia, gastric bypass, chronic smoker presents today with chest pain. He says it started while he was driving he describes it as squeezing pressure radiating down his left arm nothing makes it better or worse that is fairly constant. No known coronary artery disease. He was seen evaluated here in August with something similar. He is allergic to NSAIDs but reports nothing happens he just can not have it secondary to gastric bypass. It does look like he has been here a handful of times with chest pain this year. He had a nuclear stress test in 2020 which was negative along with an echocardiogram which showed a normal EF Related Data Home Medications Medication Instructions Recorded Confirmed diphenhydramine 25 2 tab PO BEDTIME PRN Pain (Scale 09/10/18 01/16/23 mg-acetaminophen 500 mg tablet Score 1-3) (Tylenol PM Extra Strength) metformin 500 mg tablet 500 mg PO BID 09/10/18 01/16/23 multivitamin 1 tab PO DAILY 09/10/18 01/16/23 telmisartan 80 1 tab PO DAILY 09/10/18 01/16/23 mg-hydrochlorothiazide 25 mg tablet fluoxetine 60 mg tablet 60 mg PO DAILY 12/18/20 01/16/23 olanzapine 20 mg tablet 20 mg PO BEDTIME 12/18/20 01/16/23 Previous Rx's Medication Instructions Recorded acetaminophen 325 mg tablet 975 mg (3 x 325 mg) PO Q8H PRN 09/11/18 Pain (Scale Score 4-6) #30 tabs Allergies Allergy/AdvReac Type Severity Reaction Status Date / Time NSAIDS (Non-Steroidal AdvReac Mild CAN TAKE, Verified 05/27/22 14:24 Anti-Inflamma BUT TRIES [NSAIDS (NON-STEROIDAL TO AVOID ANTI-INFLAMMA] R/T GASTRIC BYPASS Patient History Medical History Degenerative disc disease GERD (gastroesophageal reflux disease) History of bleeding ulcers HNP (herniated nucleus pulposus), lumbar HTN (hypertension) Hypertriglyceridemia Nephrolithiasis Non-insulin dependent type 2 diabetes mellitus Surgical History History of cervical spinal surgery History of cholecystectomy History of colonoscopy History of gastric bypass History of vasectomy Status post lumbar surgery Family History Mother No known health problems Father No known health problems Social History household members: spouse and children Smoking Status: Current every day smoker alcohol intake: current Smoking Status: Current every day smoker tobacco type: cigarettes alcohol intake frequency: holidays/special occasions only Substance Use Type: does not use Exam Initial Vital Signs Initial Vital Signs: Vital Signs Temperature 98.0 F 01/16/23 10:21 Pulse Rate 63 01/16/23 10:21 Respiratory Rate 18 01/16/23 10:21 Blood Pressure 108/62 01/16/23 10:21 Pulse Oximetry 99 01/16/23 10:21 Oxygen Delivery Method Room Air 01/16/23 10:21 GENERAL: Alert pleasant 68-year-old male and in no acute distress. HEENT: Head atraumatic,EOMI, pupils reactive, face symmetric, moist mucous membranes CARDIOVASCULAR: Regular rate and rhythm without murmurs, rubs or gallops. RESPIRATORY: Breath sounds equal bilaterally, no wheezes rales or rhonchi. ABDOMEN: Soft, nontender. Normoactive bowel sounds all 4 quadrants. No guarding or rebound. EXTREMITIES: Normal range of motion, no clubbing or edema. Neurovascularly intact NEUROLOGICAL: Alert and oriented x4.Normal gait and speech. SKIN: Warm, dry, no laceration, no petechiae, no rashes or lesions. Scores HEART Score Heart Score history: Highly Suspicious Heart Score EKG: Normal Heart Score Age: > or = 65 years old Heart Score risk factors: No known risk factors Heart Score troponin: < or = to normal limit Heart Score Total: 4 Course Orders Ordered: ED Orders 01/16/23 10:24 EKG-12 Lead Stat 01/16/23 10:26 XR chest 1V Stat 01/16/23 10:28 Complete Blood Count AUTO DIFF Stat Comprehensive Metabolic Panel Stat Lipase Stat Magnesium Stat PTT Partial Thromboplastin Neo Stat Prothrombin Time INR Stat Troponin & CK Cardiac Panel Stat 01/16/23 12:32 Trop I [Troponin I] Stat Acetaminophen (Acetaminophen 325 Mg Tablet) 650 mg PO Q6H PRN PRN Reason: Fever/Mild Pain (1-3) Hydrocodone Bitart/Acetaminophen (Hydrocodone/Acet 5/325 Tablet) 1 tab PO Q6H PRN PRN Reason: pain Last Admin: 01/16/23 17:41 Dose: 1 tab Documented By: JUAN Amlodipine Besylate (Amlodipine 5 Mg Tablet) 10 mg PO DAILY [facility] Aspirin (Aspirin Ec 81 Mg Tablet) 81 mg PO DAILY [facility] Atorvastatin Calcium (Atorvastatin 20 Mg Tablet) 40 mg PO BEDTIME [facility] Fluoxetine HCl (Fluoxetine 20 Mg Capsule) 60 mg PO DAILY [facility] Hydrochlorothiazide (Hydrochlorothiazide 25 Mg Tablet) 25 mg PO DAILY [facility] Dextrose (D10w) 100 mls @ 1,200 mls/hr IV PRN PRN PRN Reason: Hypoglycemia Insulin Human Lispro (Insulin Lispro 100 Unit/Ml 3ml Vial) 0 unit SUBCUT ACHS [facility]; Protocol Last Admin: 01/16/23 18:35 Dose: Not Given Documented By: JUAN Isosorbide Mononitrate (Isosorbide Mononitrate Er 30 Mg Tablet) 60 mg PO DAILY [facility] Ketorolac Tromethamine (Ketorolac 30 Mg/Ml Vial) 30 mg IV Q6H PRN PRN Reason: Pain, Moderate (4-6) Last Admin: 01/16/23 18:35 Dose: 30 mg Documented By: JUAN Lidocaine (Lidocaine Patch 1 Each Adh..Patch) 1 each TOP DAILY [facility] Last Admin: 01/16/23 18:35 Dose: 1 each Documented By: JUAN Lidocaine (Remove Lidocaine Patch) 1 each TOP BEDTIME [facility] Losartan Potassium (Losartan 50 Mg Tablet) 100 mg PO DAILY [facility] Melatonin (Melatonin 3 Mg Tablet) 6 mg PO BEDTIME PRN PRN Reason: Insomnia Metformin HCl (Metformin Hcl 500 Mg Tablet) 500 mg PO 0800,1700 [facility] Last Admin: 01/16/23 17:36 Dose: 500 mg Documented By: JUAN Naloxone HCl (Naloxone 0.4 Mg/Ml Vial) 0.2 mg IV Q2MIN PRN PRN Reason: Opiate Reversal Nitroglycerin (Nitroglycerin 0.4 Mg Sl Tab) 0.4 mg SL [id number] PRN PRN Reason: Chest Pain Last Admin: 01/16/23 17:23 Dose: 0.4 mg Documented By: Admin: 01/16/23 10:41 Dose: 0.4 mg Documented By: SANDRA Olanzapine (Olanzapine Odt 10 Mg Tab) 20 mg PO BEDTIME [facility] Ondansetron HCl (Ondansetron 4 Mg Odt) 4 mg PO Q4HR PRN PRN Reason: [place] Pantoprazole Sodium (Pantoprazole Dr 20 Mg Tablet) 40 mg PO 0700 [facility] Polyethylene Glycol (Polyethylene Glycol 3350 17 Gm Powd.Pack) 17 gm PO DAILY PRN PRN Reason: Constipation Sennosides (Sennosides 8.6 Mg Tablet) 8.6 mg PO BID PRN PRN Reason: Constipation Tamsulosin HCl (Tamsulosin 0.4 Mg Capsule) 0.8 mg PO DAILY [facility] Discontinued Medications Aspirin (Aspirin 81 Mg Chew Tab) 324 mg PO NOW ONE Stop: 01/16/23 10:27 Last Admin: 01/16/23 10:27 Dose: Not Given Documented By: SANDRA Duloxetine HCl (Duloxetine 30 Mg Capsule) 30 mg PO DAILY [facility] Enoxaparin Sodium (Enoxaparin 40 Mg/0.4 Ml Syringe) 40 mg SUBCUT DAILY [facility] Last Admin: 01/16/23 17:24 Dose: 40 mg Documented By: JUAN Dextrose (D10w) 1,000 mls @ 100 mls/hr IV CONT [facility] Last Infusion: 01/16/23 14:26 Dose: 0 mls/hr Documented By: Admin: 01/16/23 10:59 Dose: 100 mls/hr Documented By: SANDRA Magnesium Sulfate (Magnesium Sulfate) 2 gm in 50 mls @ 25 mls/hr IV NOW ONE Stop: 01/16/23 17:35 Last Admin: 01/16/23 17:25 Dose: 25 mls/hr Documented By: JUAN Co-signed By: MICHELLE Isosorbide Mononitrate (Isosorbide Mononitrate Er 30 Mg Tablet) 30 mg PO DAILY [facility] Ketorolac Tromethamine (Ketorolac 30 Mg/Ml Vial) 15 mg IV NOW ONE Stop: 01/16/23 14:06 Last Admin: 01/16/23 14:26 Dose: Not Given Documented By: SANDRA Morphine Sulfate (Morphine 2 Mg/Ml Inj) 2 mg IV NOW ONE Stop: 01/16/23 12:23 Last Admin: 01/16/23 12:26 Dose: 2 mg Documented By: ANTONINO Morphine Sulfate (Morphine 4 Mg/Ml Inj) 4 mg IV NOW ONE Stop: 01/16/23 14:49 Last Admin: 01/16/23 14:53 Dose: 4 mg Documented By: SANDRA Olanzapine (Olanzapine 2.5 Mg Tablet) 20 mg PO BEDTIME [facility] Pantoprazole Sodium (Pantoprazole 40 Mg Vial) 40 mg IV NOW ONE Stop: 01/16/23 14:46 Last Admin: 01/16/23 14:53 Dose: 40 mg Documented By: KF Vital Signs Vital signs: Vital Signs - 8 hr 01/16/23 11:15 01/16/23 11:15 01/16/23 11:30 Pulse Rate 59 L 58 L Respiratory Rate 18 16 Blood Pressure 104/60 Pulse Oximetry 99 99 01/16/23 11:30 01/16/23 11:45 01/16/23 11:45 Pulse Rate 56 L Respiratory Rate 15 Blood Pressure 107/64 109/63 Pulse Oximetry 99 01/16/23 12:00 01/16/23 12:00 01/16/23 12:15 Pulse Rate 60 Respiratory Rate 24 Blood Pressure 112/61 119/68 Pulse Oximetry 99 01/16/23 12:15 01/16/23 12:30 01/16/23 12:34 Pulse Rate 61 60 59 L Respiratory Rate 21 20 Blood Pressure Pulse Oximetry 100 100 99 01/16/23 12:34 01/16/23 12:45 01/16/23 12:45 Pulse Rate 57 L Respiratory Rate 22 Blood Pressure 133/58 L 108/53 L Pulse Oximetry 99 01/16/23 13:00 01/16/23 13:00 01/16/23 13:15 Pulse Rate 57 L Respiratory Rate Blood Pressure 117/60 113/56 L Pulse Oximetry 99 01/16/23 13:15 01/16/23 13:30 01/16/23 13:34 Pulse Rate 57 L 78 64 Respiratory Rate 19 22 26 H Blood Pressure Pulse Oximetry 99 100 01/16/23 13:34 01/16/23 13:45 01/16/23 13:45 Pulse Rate 56 L Respiratory Rate 24 Blood Pressure 133/65 128/59 L Pulse Oximetry 97 01/16/23 14:00 01/16/23 14:00 01/16/23 14:15 Pulse Rate 60 Respiratory Rate 18 Blood Pressure 128/61 125/60 Pulse Oximetry 100 01/16/23 14:15 01/16/23 14:30 01/16/23 14:31 Pulse Rate 55 L 63 Respiratory Rate 20 Blood Pressure 155/67 H Pulse Oximetry 99 100 01/16/23 14:31 01/16/23 14:45 01/16/23 14:45 Pulse Rate 63 55 L Respiratory Rate 22 Blood Pressure 140/67 Pulse Oximetry 100 99 01/16/23 15:00 01/16/23 15:00 01/16/23 15:15 Pulse Rate 60 Respiratory Rate 21 Blood Pressure 134/61 132/63 Pulse Oximetry 98 01/16/23 15:15 Pulse Rate 58 L Respiratory Rate 21 Blood Pressure Pulse Oximetry 98 MDM - Chest Pain Lab Data 01/16/23 10:28 01/16/23 10:28 Labs: Lab Results 01/16/23 01/16/23 Range/Units 10:28 12:32 WBC 7.4 (4.5-11.0) X10^3/uL RBC 3.42 L (4.5-5.9) X10^6/uL Hgb 8.0 L (13.5-17.5) g/dL Hct 25.1 L (41-53) % MCV 73.3 L (80-100) fL MCH 23.3 L (26-34) PG MCHC 31.8 (30-36) % RDW 18.7 H (11.6-14.8) % Plt Count 244 (150-400) X10^3/uL Neut % (Auto) 69.3 (50-75) % Lymph % (Auto) 20.1 L (25-40) % [place] % (Auto) 9.7 (3-14) % Eos % (Auto) 0.3 L (2-4) % Baso % (Auto) 0.6 (0-2) % Neut # (Auto) 5200 (1227-6028) /uL Lymph # (Auto) 1500 (0691-8429) /uL [place] # (Auto) 700 (0-900) /uL Eos # (Auto) 0 (0-450) /uL Baso # (Auto) 0 (0-100) /uL PT 13.6 H (10.1-12.7) SECONDS INR 1.2 (0.9-1.3) APTT 27 (26-36) SECONDS Sodium 140 (137-145) mmol/L Potassium 4.2 (3.4-5.1) mmol/L Chloride 109 H (98-107) mmol/L Carbon Dioxide 22 (22-32) mmol/L BUN 16 (9-20) mg/dL Creatinine 0.83 (0.66-1.25) mg/dL Estimated GFR > 60 (>60) mL/min BUN/Creatinine Ratio 19.3 (6-22) Glucose 68 L (80-110) mg/dL Hemoglobin A1c 6.4 H (4.0-6.0) % Calcium 9.3 (8.4-10.2) mg/dL Magnesium 1.6 (1.6-2.3) mg/dL Total Bilirubin 0.3 (0.2-1.3) mg/dL AST 20 (17-59) IU/L ALT 16 (<50) IU/L Alkaline Phosphatase 101 (38-126) U/L Total Creatine Kinase 70 (55-170) U/L Troponin I < 0.012 < 0.012 (0.01-0.034) ng/mL Total Protein 6.2 L (6.3-8.2) g/dL Albumin 3.5 (3.5-5.0) g/dL Globulin 2.7 (1.7-4.1) g/dL Albumin/Globulin Ratio 1.3 (1.0-2.8) Triglycerides 137 (35-150) mg/dL Cholesterol 106 L (140-199) mg/dL LDL Cholesterol, Calc 40 (<100) mg/dL HDL Cholesterol 39 L (40-60) mg/dL Lipase 32 (23-300) U/L TSH 1.05 (0.47-4.68) uIU/mL Point of Care Testing Glucose POC 89 Imaging Data Chest x-ray: Radiologist's Impression: PROCEDURE: XR CHEST 1V INDICATIONS: chest pain TECHNIQUE: One view of the chest was acquired. COMPARISON: [facility], CR, XR CHEST 1V, 08/28/2022, 15:02. FINDINGS: Surgical changes and devices: None. Lungs and pleura: Lungs are clear. No pleural effusions or pneumothorax. Mediastinum: Mediastinal contours appear normal. Heart size is normal. Bones and chest wall: No suspicious bony lesions. Overlying soft tissues appear unremarkable. IMPRESSION: Portable chest within normal limits for age. Dictated by: Micki Metzger M.D. on 01/16/2023 at 11:14 ECG Data Interpretation: EKG 1. Sinus rhythm rate 64 CA interval 134 QRS [address] changes no T- wave inversions similar to previous EKG in August EKG 2. Sinus rhythm no ST changes or ischemia MDM Narrative Medical decision making narrative: Patient 68-year-old male with multiple comorbidities including smoking diabetes hypertension hyperlipidemia presenting with chest pain radiating down the left arm. It is fairly constant. Not relieved with nitro or morphine the morphine helped the most. Not able to have NSAIDs secondary to gastric bypass. He has had chest pain this year and discharged although it was discussed on his last ED visit for admission. He did have a nuclear stress test and echo in 2020 which was normal. Unable to get stress test over the weekend. Patient is aware of this, agreeable to stay. Dr. Harmon updated patient's symptoms test results agrees Discharge Plan Departure Patient Disposition: Admitted as Observation Clinical Impression: Chest pain Admit Date/Time: 01/16/23 15:28 Admit Provider: Buck Harmon
[2023-01-16 10:33] LABS: Add Manual Diff / Slide Review NO; Basophils Absolute Auto 0 /uL (0-100); Basophils Percent Auto 0.6 % (0-2); Eosinophils Absolute Auto 0 /uL (0-450); Eosinophils Percent Auto 0.3 % (2-4); Hematocrit 25.1 % (41-53); Lymphocytes Absolute Auto 1500 /uL (1100-4500); Lymphocytes Percent Auto 20.1 % (25-40); Mean Corpuscular HGB Conc 31.8 % (30-36); Mean Corpuscular Hemoglobin 23.3 PG (26-34); Mean Corpuscular Volume 73.3 fL (80-100); Monocytes Absolute Auto 700 /uL (0-900); Monocytes Percent Auto 9.7 % (3-14); Neutrophils Absolute Auto 5200 /uL (1500-7000); Neutrophils Percent Auto 69.3 % (50-75); Platelet Count 244 X10^3/uL (150-400); Red Blood Cell Count 3.42 X10^6/uL (4.5-5.9); Red Cell Distribution Width 18.7 % (11.6-14.8); White Blood Cell Count 7.4 X10^3/uL (4.5-11.0)
[2023-01-16] MEDS: NITROGLYCERIN 0.4 MG SL TAB SL ×2 (10:41→17:23)
[2023-01-16 10:44] LABS: Alanine Aminotransferase 16 IU/L (<50); Albumin 3.5 g/dL (3.5-5.0); Albumin Globulin Ratio 1.3 (1.0-2.8); Alkaline Phosphatase 101 U/L (38-126); Aspartate Aminotransferase 20 IU/L (17-59); BUN Creatinine Ratio 19.3 (6-22); Bilirubin Total 0.3 mg/dL (0.2-1.3); Blood Urea Nitrogen 16 mg/dL (9-20); Calcium 9.3 mg/dL (8.4-10.2); Carbon Dioxide 22 mmol/L (22-32); Chloride 109 mmol/L (98-107); Creatine Kinase 70 U/L (55-170); Estimated Glomerular Filt Rate > 60 mL/min (>60); Globulin 2.7 g/dL (1.7-4.1); Glucose 68 mg/dL (80-110); HEMOLYSIS < 15 (0-50); Lipase 32 U/L (23-300); Magnesium 1.6 mg/dL (1.6-2.3); Potassium 4.2 mmol/L (3.4-5.1); Sodium 140 mmol/L (137-145); Total Protein 6.2 g/dL (6.3-8.2)
[2023-01-16 10:48] LABS: INR 1.2 (0.9-1.3); Prothrombin Time 13.6 SECONDS (10.1-12.7)
--- NOTE | 2023-01-16 10:48 | PC.NURSE ---
no change to CP s/p nitro admin, BP 95/54, HR 68, Dr. Stafford aware. No additional nitro to be administered per Dr. stafford. Verbal read back for repeat EKG.
[2023-01-16 10:51] LABS: PTT Partial Thromboplastin Tim 27 SECONDS (26-36)
[2023-01-16 10:55] LABS: Troponin I < 0.012 ng/mL (0.01-0.034)
--- NOTE | 2023-01-16 10:55 | PC.NURSE ---
Dr. Vences notified of BG 68, to place new orders.
[2023-01-16] MEDS: DEXTROSE 10 % IN WATER 1,000 ML 100 ML IV (10:59)
[2023-01-16] MEDS: MORPHINE 2 MG/ML INJ IV (12:26)
[2023-01-16 13:03] LABS: Troponin I < 0.012 ng/mL (0.01-0.034)
--- NOTE | 2023-01-16 14:30 | PC.NURSE ---
per Dr. Vences, stop D10 infusion and recheck bg, 91, notified
[2023-01-16] MEDS: PANTOPRAZOLE 40 MG VIAL IV (14:53)
[2023-01-16] MEDS: MORPHINE 4 MG/ML INJ IV (14:53)
--- NOTE | 2023-01-16 15:37 | DI.ECHO.S_ITS ---
[facility]---------+ [facility] +---------+ : : [address] : : : : [id number] : : : : Phone: [phone] Echocardiogram Report + + :Name: ASHLEY WALDRON Study Date: 01/17/2023 Height: 66 in : [facility] Reading[facility]: Weight: 175 lb : : Gender: Male BSA: 1.9 m2 : :: 1955 Age: 68 yrs BP: 121/58 mmHg: :Reason For Study: CHEST PAIN : :Ordering Physician: ADRIANNA, : :LIGIA Andrew Performed By: Geri Stratton : :Referring: LIGIA RODAS : + + Interpretation Summary Normal sinus rhythm. Normal LV size and wall thickness. Normal wall motion and LV systolic function. Ejection fraction is 60-65%. Aortic valve leaflets are mildly thickened and calcified with mild associated aortic stenosis. Otherwise no valvular abnormalities. Compared to prior study obtained on December 18, 2020, aortic stenosis is newly described. Procedure: A two-dimensional transthoracic echocardiogram with color flow and Doppler was performed. The study quality was technically adequate. Comparison is made with the echocardiogram of 12/18/2020. The patient was in sinus rhythm with heart rates between 71-77 bpm during the exam. Left Ventricle: The left ventricle is normal in size and wall thickness. The ejection fraction is estimated to be 60-65%. Right Ventricle: The right ventricle is normal in size and function. Atria: The left atrial size is normal. Right atrial size is normal. There is no Doppler evidence for an interatrial shunt. Mitral Valve: The mitral valve is normal in structure and function. There is trace mitral regurgitation. Aortic Valve: The aortic valve is trileaflet. The aortic valve is mildly calcified. The peak aortic velocity is 2.3 m/sec. The aortic valve mean gradient is 12 mmHg. There is mild aortic stenosis. No aortic regurgitation is present. Tricuspid Valve: The tricuspid valve is normal in structure and function. There is trace tricuspid regurgitation. The right ventricular systolic pressure is estimated to be at least 34 mmHg based on an estimated right atrial pressure of 3 mm Hg. Pulmonic Valve: The pulmonic valve is not well seen, but is grossly normal. There is no pulmonic valvular regurgitation. Great Vessels: The aortic root is normal size. The dimensions of the ascending aorta are normal. The IVC is of normal diameter and collapses greater than 50% with a sniff. This suggests a low right atrial pressure of 3 mm Hg. Pericardium/ Pleura There is no pericardial effusion. There is no pleural effusion. MMode/2D Measurements & Calculations LVIDd: 5.3 cm LVOT diam: 2.0 cm LVIDs: 3.2 cm Ao root diam: 3.8 cm FS: 40.8 % asc Aorta Diam: 3.7 cm IVSd: 0.78 cm Ao Arch Diam (Prox Trans): 2.5 cm LVPWd: 1.1 cm LV dougherty. diameter/BSA (cm/m^2): 2.8 LV sys. diameter/BSA (cm/m^2): 1.7 LA A2 area: 20.6 cm2 RA long axis: 5.9 cm LA A4 area: 18.9 cm2 RA area: 16.4 cm2 LA length (vol): 5.4 cm RA vol: 39.2 ml LA vol: 61.6 ml RA : 20.7 ml/m2 LA vol index: 32.6 ml/m2 IVC diam: 1.3 cm RVD1 (basal): 3.3 cm RVD2 (mid): 3.5 cm TAPSE: 2.5 cm Doppler Measurements & Calculations Ao V2 max: 234.5 cm/sec LVOT Max Jeremy: 156.8 cm/sec Ao V2 mean: 160.6 cm/sec LV V1 max P.8 mmHg Ao max P.0 mmHg LV V1 VTI: 30.7 cm Ao mean P.9 mmHg ROBYN(I,D): 2.0 cm2 Ao V2 VTI: 47.7 cm ROBYN(V,D): 2.1 cm2 sev ratio: 0.64 ROBYN indexed to BSA (cm^2/m^2): 1.1 MV E max jeremy: 105.2 cm/sec TR max jeremy: 279.6 cm/sec MV A max jeremy: 105.2 cm/sec TR max P.3 mmHg MV E/A: 1.0 PA V2 max: 90.4 cm/sec Med Peak E' Jeremy: 7.4 cm/sec PA V2 mean: 62.9 cm/sec E/E' med: 14.2 PA mean P.7 mmHg Lat Peak E' Jeremy: 8.8 cm/sec PA pr(Accel): 49.9 mmHg E/E' lat: 12.0 E/e' average: 13.1 MV dec time: 0.25 sec SV(LVOT): 96.5 ml Electronically signed by: Nirmala Fofana M.D. on [place] Physician:01/17/2023 01:49 PM
[2023-01-16 15:57] LABS: Cholesterol 106 mg/dL (140-199); HDL Cholesterol 39 mg/dL (40-60); LDL Cholesterol Calculated 40 mg/dL (<100); Triglycerides 137 mg/dL (35-150)
[2023-01-16 15:59] LABS: Hemoglobin A1C% w Est Avg Glu 6.4 % (4.0-6.0)
[2023-01-16 16:28] LABS: TSH w/ Reflex to FT4 1.05 uIU/mL (0.47-4.68)
--- NOTE | 2023-01-16 16:48 | PC.NURSE ---
1625: attempted to call report x 1, RN unavailable 1651: Report to Anjali CHO
[2023-01-16] MEDS: ENOXAPARIN 40 MG/0.4 ML SYRINGE SUBCUT (17:24)
[2023-01-16] MEDS: MAGNESIUM SULFATE 2 GM/50 ML PIGGYBACK IV (17:25)
[2023-01-16] MEDS: METFORMIN HCL 500 MG TABLET PO (17:36)
[2023-01-16] MEDS: HYDROCODONE/ACET 5/325 TABLET 1 TAB PO (17:41)
--- NOTE | 2023-01-16 18:05 | P.HP_ITS ---
History of Present Illness History of Present Illness Date Patient Seen: 01/16/23 Time Patient Seen: 18:06 Chief complaint: Chest Pain, SOB Narrative: Kristian Yin is a 68yo M with PMH of GERD with gastric ulcer, HTN, HLD, DM2, depression, and kidney stones who presents with CP. Patient states the pain is worse with deep breaths. Not changed by position. Describes the pain as sharp and stabbing behind his sternum and radiates to his left arm. No burning sensation or epigastric pain. Pain is reproducible on exam. He has had several episodes of chest pain in the past and had a normal stress and echo in 2020. He denies SOB, abd pain, NV, or diarrhea. [facility] Medical History Degenerative disc disease GERD (gastroesophageal reflux disease) History of bleeding ulcers HNP (herniated nucleus pulposus), lumbar HTN (hypertension) Hypertriglyceridemia Nephrolithiasis Non-insulin dependent type 2 diabetes mellitus Surgical History History of cervical spinal surgery History of cholecystectomy History of colonoscopy History of gastric bypass History of vasectomy Status post lumbar surgery Family History Mother No known health problems Father No known health problems Social History household members: spouse and children Smoking Status: Current every day smoker alcohol intake: current Meds Home Medications and Allergies Home Medications Medication Instructions Recorded Confirmed Type diphenhydramine 25 2 tab PO BEDTIME PRN Pain (Scale 09/10/18 01/16/23 History mg-acetaminophen 500 mg tablet Score 1-3) (Tylenol PM Extra Strength) metformin 500 mg tablet 500 mg PO BID 09/10/18 01/16/23 History multivitamin 1 tab PO DAILY 09/10/18 01/16/23 History telmisartan 80 1 tab PO DAILY 09/10/18 01/16/23 History mg-hydrochlorothiazide 25 mg tablet acetaminophen 325 mg tablet 975 mg (3 x 325 mg) PO Q8H PRN 09/11/18 01/16/23 Rx Pain (Scale Score 4-6) #30 tabs fluoxetine 60 mg tablet 60 mg PO DAILY 10/05/21 11/03/23 History olanzapine 20 mg tablet 20 mg PO BEDTIME 12/18/20 01/16/23 History Allergies Allergy/AdvReac Type Severity Reaction Status Date / Time NSAIDS (Non-Steroidal AdvReac Mild CAN TAKE, Verified 05/27/22 14:24 Anti-Inflamma BUT TRIES [NSAIDS (NON-STEROIDAL TO AVOID ANTI-INFLAMMA] R/T GASTRIC BYPASS Review of Systems Review of Systems Narrative: All other systems reviewed with the patient and are negative unless otherwise stated. Exam Vital Signs (past 8 hours): - 01/16/23 10:21 01/16/23 10:21 01/16/23 10:22 Temperature 98.0 F Pulse Rate 63 71 67 Respiratory Rate 18 Blood Pressure 108/62 Pulse Oximetry 99 99 99 Oxygen Delivery Method Room Air Oxygen Flow Rate 01/16/23 10:22 01/16/23 10:30 01/16/23 10:39 Temperature Pulse Rate 63 65 Respiratory Rate 17 24 Blood Pressure 108/62 Pulse Oximetry 98 99 Oxygen Delivery Method Oxygen Flow Rate 01/16/23 10:39 01/16/23 10:41 01/16/23 10:41 Temperature Pulse Rate 61 61 Respiratory Rate 18 Blood Pressure 106/58 L 108/62 Pulse Oximetry 99 Oxygen Delivery Method Oxygen Flow Rate 01/16/23 10:41 01/16/23 10:45 01/16/23 10:45 Temperature Pulse Rate 66 Respiratory Rate 18 Blood Pressure 108/62 95/54 L Pulse Oximetry 97 Oxygen Delivery Method Oxygen Flow Rate 01/16/23 10:50 01/16/23 10:50 01/16/23 10:55 Temperature Pulse Rate 65 Respiratory Rate 14 Blood Pressure 97/53 L 99/55 L Pulse Oximetry 97 Oxygen Delivery Method Oxygen Flow Rate 01/16/23 10:55 01/16/23 11:00 01/16/23 11:00 Temperature Pulse Rate 61 61 Respiratory Rate 20 18 Blood Pressure 97/54 L Pulse Oximetry 98 99 Oxygen Delivery Method Oxygen Flow Rate 01/16/23 11:15 01/16/23 11:15 01/16/23 11:30 Temperature Pulse Rate 59 L 58 L Respiratory Rate 18 16 Blood Pressure 104/60 Pulse Oximetry 99 99 Oxygen Delivery Method Oxygen Flow Rate 01/16/23 11:30 01/16/23 11:45 01/16/23 11:45 Temperature Pulse Rate 56 L Respiratory Rate 15 Blood Pressure 107/64 109/63 Pulse Oximetry 99 Oxygen Delivery Method Oxygen Flow Rate 01/16/23 12:00 01/16/23 12:00 01/16/23 12:15 Temperature Pulse Rate 60 Respiratory Rate 24 Blood Pressure 112/61 119/68 Pulse Oximetry 99 Oxygen Delivery Method Oxygen Flow Rate 01/16/23 12:15 01/16/23 12:30 01/16/23 12:34 Temperature Pulse Rate 61 60 59 L Respiratory Rate 21 20 Blood Pressure Pulse Oximetry 100 100 99 Oxygen Delivery Method Oxygen Flow Rate 01/16/23 12:34 01/16/23 12:45 01/16/23 12:45 Temperature Pulse Rate 57 L Respiratory Rate 22 Blood Pressure 133/58 L 108/53 L Pulse Oximetry 99 Oxygen Delivery Method Oxygen Flow Rate 01/16/23 13:00 01/16/23 13:00 01/16/23 13:15 Temperature Pulse Rate 57 L Respiratory Rate Blood Pressure 117/60 113/56 L Pulse Oximetry 99 Oxygen Delivery Method Oxygen Flow Rate 01/16/23 13:15 01/16/23 13:30 01/16/23 13:34 Temperature Pulse Rate 57 L 78 64 Respiratory Rate 19 22 26 H Blood Pressure Pulse Oximetry 99 100 Oxygen Delivery Method Oxygen Flow Rate 01/16/23 13:34 01/16/23 13:45 01/16/23 13:45 Temperature Pulse Rate 56 L Respiratory Rate 24 Blood Pressure 133/65 128/59 L Pulse Oximetry 97 Oxygen Delivery Method Oxygen Flow Rate 01/16/23 14:00 01/16/23 14:00 01/16/23 14:15 Temperature Pulse Rate 60 Respiratory Rate 18 Blood Pressure 128/61 125/60 Pulse Oximetry 100 Oxygen Delivery Method Oxygen Flow Rate 01/16/23 14:15 01/16/23 14:30 01/16/23 14:31 Temperature Pulse Rate 55 L 63 Respiratory Rate 20 Blood Pressure 155/67 H Pulse Oximetry 99 100 Oxygen Delivery Method Oxygen Flow Rate 01/16/23 14:31 01/16/23 14:45 01/16/23 14:45 Temperature Pulse Rate 63 55 L Respiratory Rate 22 Blood Pressure 140/67 Pulse Oximetry 100 99 Oxygen Delivery Method Oxygen Flow Rate 01/16/23 15:00 01/16/23 15:00 01/16/23 15:15 Temperature Pulse Rate 60 Respiratory Rate 21 Blood Pressure 134/61 132/63 Pulse Oximetry 98 Oxygen Delivery Method Oxygen Flow Rate 01/16/23 15:15 01/16/23 15:30 01/16/23 15:30 Temperature Pulse Rate 58 L 58 L Respiratory Rate 21 22 Blood Pressure 125/62 Pulse Oximetry 98 97 Oxygen Delivery Method Oxygen Flow Rate 01/16/23 15:45 01/16/23 15:45 01/16/23 16:00 Temperature Pulse Rate 61 57 L Respiratory Rate 20 23 Blood Pressure 135/68 Pulse Oximetry 98 97 Oxygen Delivery Method Oxygen Flow Rate 01/16/23 16:00 01/16/23 16:30 01/16/23 17:23 Temperature Pulse Rate 53 L 68 Respiratory Rate 24 Blood Pressure 132/65 145/57 H Pulse Oximetry 99 Oxygen Delivery Method Oxygen Flow Rate 01/16/23 17:35 Temperature 98.0 F Pulse Rate 56 L Respiratory Rate Blood Pressure 124/65 Pulse Oximetry 100 Oxygen Delivery Method Oxygen Flow Rate 0 Oxygen Delivery Method Room Air Oxygen Flow Rate 0 Narrative Exam Narrative: GEN: no acute distress HEENT: moist mucous membranes, PERRL NECK: trachea midline, no JVD CV: regular rate and rhythm, no murmurs, pain to palpation of mid-sternum PULM: clear bilaterally ABD: soft, nontender, nondistended, no organomegaly EXT: warm and well perfused with no edema NEURO: awake, alert, oriented, no focal deficits Objective Labs 01/16/23 10:28 01/16/23 10:28 Labs: Laboratory Results - last 24 hr 01/16/23 01/16/23 10:28 12:32 WBC 7.4 RBC 3.42 L Hgb 8.0 L Hct 25.1 L MCV 73.3 L MCH 23.3 L MCHC 31.8 RDW 18.7 H Plt Count 244 Neut % (Auto) 69.3 Lymph % (Auto) 20.1 L [place] % (Auto) 9.7 Eos % (Auto) 0.3 L Baso % (Auto) 0.6 Neut # (Auto) 5200 Lymph # (Auto) 1500 [place] # (Auto) 700 Eos # (Auto) 0 Baso # (Auto) 0 PT 13.6 H INR 1.2 APTT 27 Sodium 140 Potassium 4.2 Chloride 109 H Carbon Dioxide 22 BUN 16 Creatinine 0.83 Estimated GFR > 60 BUN/Creatinine Ratio 19.3 Glucose 68 L Hemoglobin A1c 6.4 H Calcium 9.3 Magnesium 1.6 Total Bilirubin 0.3 AST 20 ALT 16 Alkaline Phosphatase 101 Total Creatine Kinase 70 Troponin I < 0.012 < 0.012 Total Protein 6.2 L Albumin 3.5 Globulin 2.7 Albumin/Globulin Ratio 1.3 Triglycerides 137 Cholesterol 106 L LDL Cholesterol, Calc 40 HDL Cholesterol 39 L Lipase 32 TSH 1.05 Assessment & Plan Assessment & Plan narrative: # reproducible chest pain -worse with palpation of anterior chest wall over left sternum, suggesting noncardiac and more likely costchondritis -IV toradol ordered -lidoderm patch -echo ordered, if negative patient advised to dc home -stress test ordered for now, but if echo normal will likely not need it -ASA ordered -increased home imdur from 30 to 60mg daily -LDL 40 # DM2 -continue metformin and use SSI -A1c 6.4% # HTN -continue telmisartan-HCTZ # depression -continue prozac and olanzapine Code status is full code. DVT prophylaxis with SCDs. Proxy is spouse Cecy. I have reviewed home meds and used all available resources to reconcile the home meds. Case discussed with ED physician/APC and patient will be admitted to the hospitalist service for further workup and management. This patient will be admitted as observation and will require less than 2 midnights of hospital time to treat atypical chest pain. Quality VTE Deep Vein Thrombosis/Pulmonary Embolism Present on Admission: No
[2023-01-16] MEDS: LIDOCAINE PATCH 1 EACH ADH..PATCH TOP (18:35)
[2023-01-16] MEDS: KETOROLAC 30 MG/ML VIAL IV (18:35)
[2023-01-16] MEDS: OLANZapine ODT 10 MG TAB 20 MG PO (21:09)
[2023-01-16] MEDS: ATORVASTATIN 20 MG TABLET 40 MG PO (21:09)
[2023-01-16] MEDS: MELATONIN 3 MG TABLET 6 MG PO (21:18)
[2023-01-17] VITALS (9 sets, daily range): BP systolic 92–121; BP diastolic 42–64; PULSE 66–97; RESP 16–19; TEMP 36.8–37.3; O2SAT 93–96
[2023-01-17] MEDS: PANTOPRAZOLE DR 20 MG TABLET 40 MG PO (06:12)
[2023-01-17 06:25] LABS: Add Manual Diff / Slide Review NO; Basophils Absolute Auto 0 /uL (0-100); Basophils Percent Auto 0.1 % (0-2); Eosinophils Absolute Auto 0 /uL (0-450); Eosinophils Percent Auto 0.2 % (2-4); Hematocrit 23.8 % (41-53); Hemoglobin 7.5 g/dL (13.5-17.5); Lymphocytes Absolute Auto 900 /uL (1100-4500); Lymphocytes Percent Auto 11.6 % (25-40); Mean Corpuscular HGB Conc 31.7 % (30-36); Mean Corpuscular Hemoglobin 23.1 PG (26-34); Mean Corpuscular Volume 72.9 fL (80-100); Monocytes Absolute Auto 600 /uL (0-900); Monocytes Percent Auto 7.7 % (3-14); Neutrophils Absolute Auto 6000 /uL (1500-7000); Neutrophils Percent Auto 80.4 % (50-75); Platelet Count 203 X10^3/uL (150-400); Red Blood Cell Count 3.27 X10^6/uL (4.5-5.9); Red Cell Distribution Width 17.7 % (11.6-14.8); White Blood Cell Count 7.4 X10^3/uL (4.5-11.0)
[2023-01-17 06:43] LABS: Blood Urea Nitrogen 27 mg/dL (9-20); Calcium 8.6 mg/dL (8.4-10.2); Carbon Dioxide 22 mmol/L (22-32); Chloride 109 mmol/L (98-107); Estimated Glomerular Filt Rate > 60 mL/min (>60); Glucose 96 mg/dL (80-110); HEMOLYSIS < 15 (0-50); Potassium 4.5 mmol/L (3.4-5.1); Sodium 138 mmol/L (137-145)
[2023-01-17 06:54] LABS: Troponin I < 0.012 ng/mL (0.01-0.034)
--- NOTE | 2023-01-17 08:14 | PM.PN.1 ---
Subjective Subjective Interval history: Patient waiting for ECHO, possible treadmill test. Says pain still a real issue and not adequately controlled with current medication. Patient is a 68yo M with PMH of GERD with gastric ulcer, HTN, HLD, DM2, depression, and kidney stones who presented with CP. Patient stated the pain was worse with deep breaths. Not changed by position. Describes the pain as sharp and stabbing behind his sternum and radiates to his left arm. No burning sensation or epigastric pain. Pain is reproducible on exam. He has had several episodes of chest pain in the past and had a normal stress and echo in 2020. He denies SOB, abd pain, NV, or diarrhea. All other systems reviewed with the patient and are negative unless otherwise stated. Exam Vital Signs (past 8 hours): - 01/17/23 01:00 01/17/23 01:50 01/17/23 04:55 Temperature 99.1 F 98.3 F Pulse Rate 66 69 Respiratory Rate 18 18 Blood Pressure 94/46 L 116/61 120/64 Pulse Oximetry 95 94 Oxygen Flow Rate 0 0 Oxygen Delivery Method Room Air Oxygen Flow Rate 0 Narrative Exam Narrative: GEN: no acute distress HEENT: moist mucous membranes, PERRL NECK: trachea midline, no JVD CV: regular rate and rhythm, no murmurs, pain to palpation of mid-sternum at left costochondral junction PULM: clear bilaterally ABD: soft, nontender, nondistended, no organomegaly EXT: warm and well perfused with no edema NEURO: awake, alert, oriented, no focal deficits Objective Labs 01/17/23 05:54 01/17/23 05:54 Labs: Laboratory Results - last 24 hr 01/16/23 01/16/23 01/17/23 10:28 12:32 05:54 WBC 7.4 7.4 RBC 3.42 L 3.27 L Hgb 8.0 L 7.5 L Hct 25.1 L 23.8 L MCV 73.3 L 72.9 L MCH 23.3 L 23.1 L MCHC 31.8 31.7 RDW 18.7 H 17.7 H Plt Count 244 203 Neut % (Auto) 69.3 80.4 H Lymph % (Auto) 20.1 L 11.6 L [place] % (Auto) 9.7 7.7 Eos % (Auto) 0.3 L 0.2 L Baso % (Auto) 0.6 0.1 Neut # (Auto) 5200 6000 Lymph # (Auto) 1500 900 L [place] # (Auto) 700 600 Eos # (Auto) 0 0 Baso # (Auto) 0 0 PT 13.6 H INR 1.2 APTT 27 Sodium 140 138 Potassium 4.2 4.5 Chloride 109 H 109 H Carbon Dioxide 22 22 BUN 16 27 H Creatinine 0.83 1.00 Estimated GFR > 60 > 60 BUN/Creatinine Ratio 19.3 27.0 H Glucose 68 L 96 Hemoglobin A1c 6.4 H Calcium 9.3 8.6 Magnesium 1.6 2.0 Total Bilirubin 0.3 AST 20 ALT 16 Alkaline Phosphatase 101 Total Creatine Kinase 70 Troponin I < 0.012 < 0.012 < 0.012 Total Protein 6.2 L Albumin 3.5 Globulin 2.7 Albumin/Globulin Ratio 1.3 Triglycerides 137 Cholesterol 106 L LDL Cholesterol, Calc 40 HDL Cholesterol 39 L Lipase 32 TSH 1.05 PFSH Medical History Degenerative disc disease GERD (gastroesophageal reflux disease) History of bleeding ulcers HNP (herniated nucleus pulposus), lumbar HTN (hypertension) Hypertriglyceridemia Nephrolithiasis Non-insulin dependent type 2 diabetes mellitus Surgical History History of cervical spinal surgery History of cholecystectomy History of colonoscopy History of gastric bypass History of vasectomy Status post lumbar surgery Family History Mother No known health problems Father No known health problems Social History household members: spouse and children Smoking Status: Current every day smoker alcohol intake: current Assessment & Plan Assessment & Plan narrative: # reproducible chest pain -worse with palpation of anterior chest wall over left sternum, suggesting noncardiac and more likely costchondritis, being treated as such -IV toradol ordered -lidoderm patch -echo ordered, if negative patient advised to dc home -stress test ordered for now, but if echo normal will likely not need it -ASA ordered -increased home imdur from 30 to 60mg daily -LDL 40 - prednisone added for better inflammation control and hence treatment of pain, continue to monitor glucose due to DM2 # DM2 -continue metformin and use SSI -A1c 6.4% # HTN -continue telmisartan-HCTZ # depression -continue prozac and olanzapine # decreasing Hb, to 7.5, asymptomatic Code status is full code. DVT prophylaxis with SCDs. Proxy is spouse Cecy. This patient continues to be admitted as observation and will require less than 2 midnights of hospital time to treat atypical chest pain. Quality VTE Deep Vein Thrombosis/Pulmonary Embolism Present on Admission: No
[2023-01-17] MEDS: LOSARTAN 50 MG TABLET 100 MG PO (08:21)
[2023-01-17] MEDS: hydroCHLOROthiazide 25 MG TABLET PO (08:21)
[2023-01-17] MEDS: FLUoxetine 20 MG CAPSULE 60 MG PO (08:21)
[2023-01-17] MEDS: AMLODIPINE 5 MG TABLET 10 MG PO (08:21)
[2023-01-17] MEDS: ASPIRIN EC 81 MG TABLET PO (08:21)
[2023-01-17] MEDS: ISOSORBIDE MONONITRATE ER 30 MG TABLET 60 MG PO (08:25)
[2023-01-17] MEDS: METFORMIN HCL 500 MG TABLET PO ×2 (08:29→17:18)
[2023-01-17] MEDS: predniSONE 20 MG TABLET 40 MG PO (08:33)
[2023-01-17] MEDS: TAMSULOSIN 0.4 MG CAPSULE 0.8 MG PO (08:34)
--- NOTE | 2023-01-17 10:10 | PC.NURSE ---
Pt alert and oriented, able to voice concerns and needs. Taking b'fast without issues BS is 95 s.s. not needed this meal. Pt restful watching TV in bed.
[2023-01-17] MEDS: HYDROCODONE/ACET 5/325 TABLET 1 TAB PO ×2 (11:03→20:34)
[2023-01-17] MEDS: INSULIN LISPRO 100 UNIT/ML 3ML VIAL SUBCUT ×3 (12:49→20:39)
[2023-01-17] MEDS: ACETAMINOPHEN 325 MG TABLET 650 MG PO (16:01)
[2023-01-17] MEDS: LIDOCAINE PATCH 1 EACH ADH..PATCH TOP (20:14)
[2023-01-17] MEDS: ATORVASTATIN 20 MG TABLET 40 MG PO (20:34)
[2023-01-17] MEDS: MELATONIN 3 MG TABLET 6 MG PO (20:34)
[2023-01-17] MEDS: OLANZapine ODT 10 MG TAB 20 MG PO (20:34)
[2023-01-18 02:00] VITALS: BP 106/50; PULSE 73; RESP 16; TEMP 36.7; O2SAT 96
[2023-01-18] MEDS: HYDROCODONE/ACET 5/325 TABLET 1 TAB PO (03:35)
[2023-01-18 05:55] LABS: Add Manual Diff / Slide Review NO; Basophils Absolute Auto 0 /uL (0-100); Basophils Percent Auto 0.4 % (0-2); Eosinophils Absolute Auto 0 /uL (0-450); Eosinophils Percent Auto 0.4 % (2-4); Hematocrit 22.4 % (41-53); Lymphocytes Absolute Auto 1300 /uL (1100-4500); Lymphocytes Percent Auto 19.2 % (25-40); Mean Corpuscular HGB Conc 31.4 % (30-36); Mean Corpuscular Hemoglobin 22.8 PG (26-34); Mean Corpuscular Volume 72.8 fL (80-100); Monocytes Absolute Auto 700 /uL (0-900); Monocytes Percent Auto 10.4 % (3-14); Neutrophils Absolute Auto 4800 /uL (1500-7000); Neutrophils Percent Auto 69.6 % (50-75); Platelet Count 191 X10^3/uL (150-400); Red Blood Cell Count 3.08 X10^6/uL (4.5-5.9); White Blood Cell Count 6.9 X10^3/uL (4.5-11.0)
[2023-01-18 06:10] LABS: BUN Creatinine Ratio 42.9 (6-22); Blood Urea Nitrogen 42 mg/dL (9-20); Calcium 8.7 mg/dL (8.4-10.2); Carbon Dioxide 22 mmol/L (22-32); Chloride 109 mmol/L (98-107); Estimated Glomerular Filt Rate > 60 mL/min (>60); Glucose 100 mg/dL (80-110); HEMOLYSIS < 15 (0-50); Potassium 3.9 mmol/L (3.4-5.1); Sodium 137 mmol/L (137-145)
[2023-01-18 06:11] LABS: Magnesium 1.9 mg/dL (1.6-2.3)
[2023-01-18] MEDS: PANTOPRAZOLE DR 20 MG TABLET 40 MG PO (06:35)
[2023-01-18 08:00] VITALS: BP 113/58; PULSE 65; RESP 16; TEMP 36.1; O2SAT 95
[2023-01-18] MEDS: hydroCHLOROthiazide 25 MG TABLET PO (09:27)
[2023-01-18] MEDS: FLUoxetine 20 MG CAPSULE 60 MG PO (09:27)
[2023-01-18] MEDS: TAMSULOSIN 0.4 MG CAPSULE 0.8 MG PO (09:27)
[2023-01-18] MEDS: METFORMIN HCL 500 MG TABLET PO (09:27)
[2023-01-18] MEDS: predniSONE 20 MG TABLET 40 MG PO (09:28)
[2023-01-18] MEDS: ASPIRIN EC 81 MG TABLET PO (09:28)
[2023-01-18] MEDS: ISOSORBIDE MONONITRATE ER 30 MG TABLET 60 MG PO (09:28)
[2023-01-18] MEDS: LOSARTAN 50 MG TABLET 100 MG PO (09:28)
[2023-01-18] MEDS: AMLODIPINE 5 MG TABLET 10 MG PO (09:28)
--- NOTE | 2023-01-18 12:17 | CM.DANOTE ---
Patient is a 68 yo male who was admitted on 01/16/23 for Chest Pain r/o. Pt has [employer] for insurance and his PCP: Shin José MD. EMR was reviewed. Per , pt had Echo and if that is normal then likely no need for Stress Test. Pt now medically stable to d/c home today and outpt f/u. Pt is a 66 y.o. M who presented to the ED for chest pain. Pt has a PMH of gastric bypass, gastric ulcers, GERD, hiatal hernia, HTN, Type 2 DM, depression and is a current smoker. DCP met with pt bedside this morning and introduced herself and role. Pt states that he currently lives with his and daughter in a home on [address]. Pt states that he is independent at baseline and currently still drives. Pt denies any DME use. Pt states that once he is discharged, pt , Cecy, will pick him up to take him home. Pt denies any needs at this time. Pt denies any hx of HH or SNF and preference is home today before lunch time. RN confirms d/c instructions about to be given and no concerns with discharge. Plan: Patient to d/c home today via spouse POV and outpt f/u and no further SW needs at this time. ADAM Wan
--- NOTE | 2023-01-18 14:37 | PM.DS.1 ---
History of Present Illness History of Present Illness Date Patient Seen: 01/18/23 Chief complaint: Chest Pain, SOB Narrative: Still some discomfort on chest wall but tolerable. ECHO results known and nothing of significant concern. Has interim arotic sclerosis but but ejection fraction maintained. Discharge Providers Provider Date of admission: 01/16/23 15:28 Discharge Date: 01/18/23 Primary care physician: Shin José PA-C Discharge provider: Wanda Harper MD Summary Hospital Course Discharge Diagnosis: Reproducible chest pain Costochondritis Type 2 diabetes Hypertension Depression Anemia Decreasing hemoglobin Smoker Co-morbidities: Degenerative disc disease GERD Gastric ulcer History of bleeding ulcers HNP lumbar Nephrolithiasis History of cervical spinal surgery History of cholecystectomy History of colonoscopy History of gastric bypass History of vasectomy Status post lumbar surgery Hospital Course: Kristian Yin is a 68 yo M with PMH of GERD with gastric ulcer, HTN, HLD, DM2, depression, and kidney stones who presented with CP. Patient stated the pain is worse with deep breaths. Not changed by position. Described the pain as sharp and stabbing behind his sternum and radiates to his left arm. No burning sensation or epigastric pain. Pain is reproducible on exam. He has had several episodes of chest pain in the past and had a normal stress and echo in 2020. He denies SOB, abd pain, NV, or diarrhea. Working diagnosis was costochondritis and patient was initially treated with IV Ketorolac but this was discontinued due to gastric ulcer with bleeding history and patient initiated on Prednisone 40 mg for a 5 day course as well as narcotic meds for pain control. ECHO was completed and this was unchanged from previous other than new finding of arotic valve sclerosis. EF was maintained. Smoking cessation counseling was given and patient was discharged home. Status at Discharge Cognitive/behavioral status at discharge: oriented and at baseline, oriented Functional status at discharge: independent ambulation Overall status at discharge: patient is progressing back to baseline Time Spent with Patient Time spent: Greater than 30 minutes Time spent discussing smoking cessation with patient: 3 to 10 minutes Exam Vital Signs (past 8 hours): - 01/18/23 08:00 Temperature 97.0 F L Pulse Rate 65 Respiratory Rate 16 Blood Pressure 113/58 L Pulse Oximetry 95 Oxygen Flow Rate 0 Oxygen Delivery Method Room Air Oxygen Flow Rate 0 Narrative Exam Narrative: GEN: no acute distress HEENT: moist mucous membranes, PERRL NECK: trachea midline, no JVD CV: regular rate and rhythm, no murmurs, pain to palpation of mid-sternum at left costochondral junction PULM: clear bilaterally ABD: soft, nontender, nondistended, no organomegaly EXT: warm and well perfused with no edema NEURO: awake, alert, oriented, no focal deficits Objective Labs 01/18/23 05:31 11 05:31 Labs: Laboratory Results - last 24 hr 01/18/23 05:31 WBC 6.9 RBC 3.08 L Hgb 7.0 L Hct 22.4 L MCV 72.8 L MCH 22.8 L MCHC 31.4 RDW 18.0 H Plt Count 191 Neut % (Auto) 69.6 Lymph % (Auto) 19.2 L [place] % (Auto) 10.4 Eos % (Auto) 0.4 L Baso % (Auto) 0.4 Neut # (Auto) 4800 Lymph # (Auto) 1300 [place] # (Auto) 700 Eos # (Auto) 0 Baso # (Auto) 0 Sodium 137 Potassium 3.9 Chloride 109 H Carbon Dioxide 22 BUN 42 H Creatinine 0.98 Estimated GFR > 60 BUN/Creatinine Ratio 42.9 H Glucose 100 Calcium 8.7 Magnesium 1.9 PFSH Medical History Degenerative disc disease GERD (gastroesophageal reflux disease) History of bleeding ulcers HNP (herniated nucleus pulposus), lumbar HTN (hypertension) Hypertriglyceridemia Nephrolithiasis Non-insulin dependent type 2 diabetes mellitus Surgical History History of cervical spinal surgery History of cholecystectomy History of colonoscopy History of gastric bypass History of vasectomy Status post lumbar surgery Family History Mother No known health problems Father No known health problems Social History household members: spouse and children Smoking Status: Current every day smoker alcohol intake: current Discharge Plan Discharge Plan Patient Disposition: Home Provider Discharge Comment: Follow-up this week with your PA named Shin José in Dr. Luciano's office [place] Discharge orders & Medications Prescriptions: New sennosides [senna] 8.6 mg Tablet 8.6 mg PO BID PRN (Reason: Constipation) Qty: 30 0RF acetaminophen 325 mg Tablet 650 mg PO Q6H PRN (Reason: Fever/Mild Pain (1-3)) Qty: 50 0RF atorvastatin 20 mg Tablet 40 mg PO BEDTIME Qty: 30 0RF polyethylene glycol 3350 17 gram Powder In Packet 17 gm PO DAILY PRN (Reason: Constipation) Qty: 15 0RF hydrocodone-acetaminophen 5-325 mg Tablet 1 tab PO Q6H PRN (Reason: pain) Qty: 30 0RF prednisone 20 mg Tablet 40 mg PO DAILY Qty: 6 0RF isosorbide mononitrate 30 mg Tablet Extended Release 24 Hr 60 mg PO DAILY Qty: 30 0RF melatonin 3 mg Tablet 6 mg PO BEDTIME PRN (Reason: Insomnia) Qty: 60 0RF amlodipine [Norvasc] 5 mg Tablet 10 mg PO DAILY Qty: 30 0RF aspirin 81 mg Tablet,Delayed Release (Dr/Ec) 81 mg PO DAILY Qty: 30 0RF pantoprazole 20 mg Tablet,Delayed Release (Dr/Ec) 40 mg PO 0700 Qty: 30 0RF tamsulosin [Flomax] 0.4 mg Capsule 0.8 mg PO DAILY Qty: 30 0RF lidocaine 5 % Adhesive Patch,Medicated 1 patch topical 0630 Qty: 30 0RF nitroglycerin [Nitrostat] 0.4 mg Tablet, Sublingual 0.4 mg sublingual [id number] PRN (Reason: Chest Pain) Qty: 30 0RF ondansetron 4 mg Tablet,Disintegrating 4 mg PO Q4HR PRN (Reason: NV) Qty: 30 0RF metformin 1,000 mg tablet 1,000 mg PO BID Qty: 60 0RF Continued telmisartan-hydrochlorothiazid 80-25 mg tablet 1 tab PO DAILY multivitamin Tablet 1 tab PO DAILY diphenhydramine-acetaminophen [Tylenol PM Extra Strength] 25-500 mg Tablet 2 tab PO BEDTIME PRN (Reason: Pain (Scale Score 1-3)) acetaminophen 325 mg Tablet 975 mg PO Q8H PRN (Reason: Pain (Scale Score 4-6)) Qty: 30 0RF olanzapine 20 mg tablet 20 mg PO BEDTIME Patient Comments: take 1 tablet by mouth at bedtime fluoxetine 60 mg tablet 60 mg PO DAILY Patient Comments: take 1 tablet by mouth once daily Discontinued metformin 500 mg tablet 500 mg PO BID Follow up/Referrals: Shin José PA-C [Primary Care Provider] - Visit Report/Discharge Packet Stand Alone Forms: Patient Portal/API, Stroke Signs & Symptoms Discharge Data Primary Care Provider: Shin José Attending Provider: Buck Harmon Admit Date/Time: 01/16/23 15:28 Quality VTE Deep Vein Thrombosis/Pulmonary Embolism Present on Admission: No
== END 2023-01-18 11:10 | disposition home or self-care (01) ==
LOC: ED 10:22 → AC 15:29
PROVIDERS: Admitting Provider Student in an Organized Health Care Education/Training Program; Emergency Provider Emergency Medicine; PCP Student in an Organized Health Care Education/Training Program; Referring Provider Emergency Medicine; Visit Provider Student in an Organized Health Care Education/Training Program
DX: R07.9 Chest pain, unspecified (principal); I10 Essential (primary) hypertension; E78.5 Hyperlipidemia, unspecified; F17.210 Nicotine dependence, cigarettes, uncomplicated; Z98.890 Other specified postprocedural states; Z79.84 Long term (current) use of oral hypoglycemic drugs; F32.A Depression, unspecified; D64.9 Anemia, unspecified; M94.0 Chondrocostal junction syndrome [Tietze]
CPT/HCPCS: 36415; 71045; 80048; 80053; 80061; 82550; 82962; 83036; 83690; 83735; 84443; 84484; 85025; 85610; 85730; 93005; 93306; 96361; 96372; 96374; 96375; 96376; 99284; G0378; C9113; J1650; J1815; J1885; J2270; J3475

== ENCOUNTER 2023-01-26 09:35 | Observation (INO) | payer OTHER, SELFPAY ==
[2023-01-16 17:11] VITALS: BMI 28.2
[2023-01-26] VITALS (23 sets, daily range): BP systolic 82–123; BP diastolic 47–64; PULSE 57–79; RESP 13–26; TEMP 36.9–37.3; O2SAT 95–100; BMI 29.0
--- NOTE | 2023-01-26 09:42 | DI.RAD.S_ITS ---
PROCEDURE: XR CHEST 1V INDICATIONS: chest pain TECHNIQUE: One view of the chest was acquired. COMPARISON: [facility], CR, XR CHEST 1V, 01/16/2023, 10:36. [facility], CR, XR CHEST 1V, 08/28/2022, 15:02. FINDINGS: Surgical changes and devices: ACDF. Lungs and pleura: Lungs are clear. No pleural effusions or pneumothorax. Mediastinum: Mediastinal contours appear unchanged. Heart size is normal. Bones and chest wall: No suspicious bony lesions. Overlying soft tissues appear unremarkable. IMPRESSION: No acute cardiopulmonary abnormality. Dictated by: Andrzej Gutiérrez M.D. on 01/26/2023 at 10:36 Approved by: Andrzej Gutiérrez M.D. on 01/26/2023 at 10:37
[2023-01-26] MEDS: SODIUM CHLORIDE 0.9% 1,000 ML 1000 ML IV ×2 (09:44→11:00)
--- NOTE | 2023-01-26 09:53 | ED_ITS ---
HPI - Dizziness General Chief Complaint: Dizziness Stated Complaint: shaky while driving Time Seen by Provider: 01/26/23 09:53 Source: patient and EMS Mode of arrival: EMS History of Present Illness HPI Narrative: Patient is a 68-year-old male with significant past medical history of gastric ulcer, hypertension, hyperlipidemia, diabetes, depression, kidney stones, anemia presents today with dizziness lightheadedness and hypotension. He reports that he was driving to work today when he got very dizzy shaky and lightheaded. He did not pass out. He is no numbness tingling weakness. He has been feeling well. He was actually admitted to the hospital January 16 through the for chest pain. He had an echo done which showed a preserved EF. There were no changes in medications. He presents today with a blood pressure 82/51. I reviewed discharge summary it appears that he was discharged on multiple new medications including amlodipine nitroglycerin and Imdur. Related Data Home Medications Medication Instructions Recorded Confirmed diphenhydramine 25 2 tab PO BEDTIME PRN Pain (Scale 09/10/18 01/16/23 mg-acetaminophen 500 mg tablet Score 1-3) (Tylenol PM Extra Strength) multivitamin 1 tab PO DAILY 09/10/18 01/16/23 telmisartan 80 1 tab PO DAILY 09/10/18 01/16/23 mg-hydrochlorothiazide 25 mg tablet fluoxetine 60 mg tablet 60 mg PO DAILY 12/18/20 01/16/23 olanzapine 20 mg tablet 20 mg PO BEDTIME 12/18/20 01/16/23 Previous Rx's Medication Instructions Recorded acetaminophen 325 mg tablet 975 mg (3 x 325 mg) PO Q8H PRN 09/11/18 Pain (Scale Score 4-6) #30 tabs acetaminophen 325 mg tablet 650 mg (2 x 325 mg) PO Q6H PRN 01/18/23 Fever/Mild Pain (1-3) #50 tabs amlodipine 5 mg tablet (Norvasc) 10 mg (2 x 5 mg) PO DAILY #30 tabs 01/18/23 aspirin 81 mg tablet,delayed 81 mg PO DAILY #30 tabs 01/18/23 release atorvastatin 20 mg tablet 40 mg (2 x 20 mg) PO BEDTIME #30 01/18/23 tabs hydrocodone 5 mg-acetaminophen 325 1 tab PO Q6H PRN pain #30 tabs 01/18/23 mg tablet isosorbide mononitrate 30 mg 60 mg (2 x 30 mg) PO DAILY #30 tabs 01/18/23 tablet,extended release 24 hr lidocaine 5 % topical patch 1 patch topical 0630 #30 ea 01/18/23 melatonin 3 mg tablet 6 mg (2 x 3 mg) PO BEDTIME PRN 01/18/23 Insomnia #60 tabs metformin 1,000 mg tablet 1,000 mg PO BID #60 tabs 01/18/23 nitroglycerin 0.4 mg sublingual 0.4 mg sublingual [id number] PRN 01/18/23 tablet (Nitrostat) Chest Pain #30 tabs ondansetron 4 mg disintegrating 4 mg PO Q4HR PRN NV #30 tabs 01/18/23 tablet pantoprazole 20 mg tablet,delayed 40 mg (2 x 20 mg) PO 0700 #30 tabs 01/18/23 release polyethylene glycol 3350 17 gram 17 gm PO DAILY PRN Constipation 01/18/23 oral powder packet #15 ea prednisone 20 mg tablet 40 mg (2 x 20 mg) PO DAILY #6 tabs 01/18/23 sennosides 8.6 mg tablet (senna) 8.6 mg PO BID PRN Constipation #30 01/18/23 tabs tamsulosin 0.4 mg capsule (Flomax) 0.8 mg (2 x 0.4 mg) PO DAILY #30 01/18/23 caps Allergies Allergy/AdvReac Type Severity Reaction Status Date / Time NSAIDS (Non-Steroidal AdvReac Mild CAN TAKE, Verified 01/26/23 10:16 Anti-Inflamma BUT TRIES [NSAIDS (NON-STEROIDAL TO AVOID ANTI-INFLAMMA] R/T GASTRIC BYPASS Review of Systems Review of Systems ROS Unobtainable: All systems reviewed & are unremarkable except as noted in HPI and below Patient History Medical History GERD (gastroesophageal reflux disease) HNP (herniated nucleus pulposus), lumbar History of bleeding ulcers Hypertriglyceridemia Non-insulin dependent type 2 diabetes mellitus HTN (hypertension) Nephrolithiasis Degenerative disc disease Surgical History History of vasectomy History of colonoscopy History of cholecystectomy History of gastric bypass History of cervical spinal surgery Status post lumbar surgery Family History Mother No known health problems Father No known health problems Social History household members: spouse and children Smoking Status: Current every day smoker alcohol intake: current Smoking Status: Current every day smoker tobacco type: cigarettes alcohol intake frequency: holidays/special occasions only Substance Use Type: does not use Exam Initial Vital Signs Initial Vital Signs: Vital Signs Temperature 98.6 F 01/26/23 09:38 Pulse Rate 72 01/26/23 09:38 Respiratory Rate 17 01/26/23 09:38 Blood Pressure 82/51 L 01/26/23 09:38 Pulse Oximetry 98 01/26/23 09:38 Oxygen Delivery Method Room Air 01/26/23 09:38 GENERAL: Alert pleasant 68-year-old male appears HEENT: Head atraumatic,EOMI, pupils reactive, face symmetric, moist mucous membranes CARDIOVASCULAR: Regular rate and rhythm without murmurs, rubs or gallops. RESPIRATORY: Breath sounds equal bilaterally, no wheezes rales or rhonchi. ABDOMEN: Soft, nontender. Normoactive bowel sounds all 4 quadrants. No guarding or rebound. EXTREMITIES: Normal range of motion, no clubbing or edema. Neurovascularly intact NEUROLOGICAL: Alert and oriented x4. Moving all extremities SKIN: Warm, dry, no laceration, no petechiae, no rashes or lesions. Course Orders Ordered: ED Orders 01/26/23 09:42 XR chest 1V Stat EKG-12 Lead Stat 01/26/23 09:50 Complete Blood Count AUTO DIFF Stat Comprehensive Metabolic Panel Stat Lipase Stat Magnesium Stat PTT Partial Thromboplastin Neo Stat Prothrombin Time INR Stat Troponin & CK Cardiac Panel Stat 01/26/23 10:56 CT chest abd pel w con Stat 01/26/23 11:00 Blood Culture Stat PRBC [Packed Cells] Stat Type and Screen Stat 01/26/23 12:54 UA Complete [Urinalysis and Microscopic] Stat Discontinued Medications Sodium Chloride (Normal Saline 0.9%) 1,000 mls @ 1,000 mls/hr IV BOLUS ONE Stop: 01/26/23 10:41 Last Infusion: 01/26/23 10:18 Dose: Infused Documented By: Admin: 01/26/23 09:44 Dose: 1,000 mls/hr Documented By: DAPHNEY Sodium Chloride (Normal Saline 0.9%) 1,000 mls @ 1,000 mls/hr IV BOLUS ONE Stop: 01/26/23 12:12 Last Infusion: 01/26/23 11:23 Dose: Infused Documented By: Admin: 01/26/23 11:00 Dose: 1,000 mls/hr Documented By: SAADIA Vital Signs Vital signs: Vital Signs - 8 hr 01/26/23 09:38 01/26/23 10:12 01/26/23 10:30 Temperature 98.6 F Pulse Rate 72 63 57 L Respiratory Rate 17 15 19 Blood Pressure 82/51 L Pulse Oximetry 98 100 100 Oxygen Delivery Method Room Air Room Air 01/26/23 10:30 01/26/23 10:50 01/26/23 10:50 Temperature Pulse Rate 61 Respiratory Rate 24 Blood Pressure 86/47 L 88/52 L Pulse Oximetry 98 Oxygen Delivery Method 01/26/23 11:00 01/26/23 11:00 01/26/23 11:10 Temperature Pulse Rate 62 Respiratory Rate 20 Blood Pressure 89/51 L 96/50 L Pulse Oximetry 100 Oxygen Delivery Method 01/26/23 11:10 01/26/23 11:26 01/26/23 11:26 Temperature Pulse Rate 63 76 Respiratory Rate 23 23 Blood Pressure 98/54 L Pulse Oximetry 100 98 Oxygen Delivery Method Room Air 01/26/23 11:30 01/26/23 11:30 01/26/23 11:40 Temperature Pulse Rate 68 65 Respiratory Rate 23 18 Blood Pressure 96/54 L Pulse Oximetry 100 98 Oxygen Delivery Method Room Air Room Air 01/26/23 11:40 01/26/23 11:50 01/26/23 11:50 Temperature Pulse Rate 69 Respiratory Rate 26 H Blood Pressure 87/50 L 93/55 L Pulse Oximetry 98 Oxygen Delivery Method 01/26/23 12:00 01/26/23 12:00 01/26/23 12:10 Temperature Pulse Rate 63 Respiratory Rate 19 Blood Pressure 87/50 L 91/54 L Pulse Oximetry 95 Oxygen Delivery Method 01/26/23 12:10 01/26/23 12:20 01/26/23 12:20 Temperature Pulse Rate 66 66 Respiratory Rate 21 20 Blood Pressure 93/55 L Pulse Oximetry 98 97 Oxygen Delivery Method Room Air MDM - Dizziness Lab Data 01/26/23 09:50 01/26/23 09:50 Labs: Lab Results 01/26/23 01/26/23 Range/Units 09:50 11:00 WBC 7.4 (4.5-11.0) X10^3/uL RBC 3.12 L (4.5-5.9) X10^6/uL Hgb 7.2 L (13.5-17.5) g/dL Hct 23.3 L (41-53) % MCV 74.5 L (80-100) fL MCH 23.0 L (26-34) PG MCHC 30.9 (30-36) % RDW 18.0 H (11.6-14.8) % Plt Count 232 (150-400) X10^3/uL Neut % (Auto) 76.9 H (50-75) % Lymph % (Auto) 17.1 L (25-40) % [place] % (Auto) 5.3 (3-14) % Eos % (Auto) 0.3 L (2-4) % Baso % (Auto) 0.4 (0-2) % Neut # (Auto) 5700 (0403-5961) /uL Lymph # (Auto) 1300 (7187-1335) /uL [place] # (Auto) 400 (0-900) /uL Eos # (Auto) 0 (0-450) /uL Baso # (Auto) 0 (0-100) /uL PT 13.2 H (10.1-12.7) SECONDS INR 1.2 (0.9-1.3) APTT 27 (26-36) SECONDS Sodium 136 L (137-145) mmol/L Potassium 4.1 (3.4-5.1) mmol/L Chloride 110 H (98-107) mmol/L Carbon Dioxide 17 L (22-32) mmol/L BUN 26 H (9-20) mg/dL Creatinine 1.11 (0.66-1.25) mg/dL Estimated GFR > 60 (>60) mL/min BUN/Creatinine Ratio 23.4 H (6-22) Glucose 138 H (80-110) mg/dL Calcium 8.4 (8.4-10.2) mg/dL Magnesium 1.5 L (1.6-2.3) mg/dL Total Bilirubin 0.5 (0.2-1.3) mg/dL AST 21 (17-59) IU/L ALT 21 (<50) IU/L Alkaline Phosphatase 90 (38-126) U/L Total Creatine Kinase 33 L (55-170) U/L Troponin I < 0.012 (0.01-0.034) ng/mL Total Protein 5.5 L (6.3-8.2) g/dL Albumin 3.1 L (3.5-5.0) g/dL Globulin 2.4 (1.7-4.1) g/dL Albumin/Globulin Ratio 1.3 (1.0-2.8) Lipase 63 D (23-300) U/L Blood Type O Positive Antibody Screen Negative Crossmatch See Detail Imaging Data Chest x-ray: Radiologist's Impression: PROCEDURE: XR CHEST 1V INDICATIONS: chest pain TECHNIQUE: One view of the chest was acquired. COMPARISON: [facility], CR, XR CHEST 1V, 01/16/2023, 10:36. [facility], CR, XR CHEST 1V, 08/28/2022, 15:02. FINDINGS: Surgical changes and devices: ACDF. Lungs and pleura: Lungs are clear. No pleural effusions or pneumothorax. Mediastinum: Mediastinal contours appear unchanged. Heart size is normal. Bones and chest wall: No suspicious bony lesions. Overlying soft tissues appear unremarkable. IMPRESSION: No acute cardiopulmonary abnormality. Dictated by: Andrzej Gutiérrez M.D. on 01/26/2023 at 10:36 CT scan - abdomen/pelvis: Radiologist's Impression: PROCEDURE: CT CHEST ABD PEL W CON INDICATIONS: hypotension TECHNIQUE: After the administration of oral and intravenous contrast, axial sections acquired from the supraclavicular neck to the pubic symphysis. Coronal and sagittal reformats were performed. For radiation dose reduction, the following was used: automated exposure control, adjustment of mA and/or kV according to patient size. COMPARISON: [facility], CT, CT CHEST ABD PEL WO CON, 05/27/2022, 13:58. [facility], CT, CT ANGIO CHEST PE PROTOCOL, 08/28/2022, 16:47. FINDINGS: Image quality: Portions of the lower pelvis are suboptimally evaluated secondary to metallic streak artifact from spinal fusion hardware. CHEST: Lower Neck: No enlarged lymph nodes. Thyroid: Within normal limits. Axillae: No enlarged lymph nodes. Chest Wall: Unremarkable. Lungs and Airways: No consolidation or suspicious nodules. Pleura: No pneumothorax or pleural effusions. Heart: Heart size is normal. No pericardial effusion. Thoracic Vessels: The aorta and pulmonary arteries demonstrate normal size. Mediastinum and Donna: No enlarged lymph nodes. Esophagus: No wall thickening. Mild hiatal hernia. ABDOMEN: Liver: Hepatic steatosis. Gallbladder: Removed. Biliary ducts: Unremarkable. Pancreas: Unremarkable. Spleen: Unremarkable. Adrenal Glands: Unremarkable. Kidneys and Ureters: Nonobstructing 1 cm inferior left renal pole calculus Hounsfield units 11 40. Stomach and Bowel: Stomach, small bowel loops, and colon are nonobstructive. Scattered colonic diverticular present. Scattered colonic stool. Appendix is normal. Surgical changes reflecting gastric bypass are present. Peritoneum: No abnormal intraperitoneal fluid. No free air. Ventral Wall: Bowel containing ventral hernia without visualized incarceration, strangulation or obstruction. Abdominal Nodes: No retroperitoneal or mesenteric adenopathy by size criteria. Vessels: Aorta and inferior vena cava are normal in size. PELVIS: Pelvic Organs: Unremarkable. Bladder: Unremarkable. Pelvic Nodes: No enlarged lymph nodes. Miscellaneous: No inguinal hernias are seen. Bones: Unremarkable. IMPRESSION: 1. No acute intra-abdominal or pelvic process. 2. Scattered colonic stool without obstruction. Diverticulosis. 3. Bowel containing ventral hernia without incarceration, strangulation or obstruction. ECG Data Interpretation: Normal sinus rhythm rate 70 UT interval 148 QRS [address] changes no T- wave inversions MDM Narrative Medical decision making narrative: Patient 68-year-old male presents today while driving feeling dizzy and lightheaded he is found to be hypotensive he is not tachycardic. She denies fever or chills. He is anemic chronically anemic. Today hemoglobin and hematocrit are relatively stable but low. Hemoglobin is 7.2 hematocrit 23.3 previously 7.0/22.4 he denies any rectal bleeding or hematemesis. He has no abdominal pain or chest pain. Electrolytes slightly abnormal sodium 136 potassium 4.1 chloride 110 CO2 17 BUN 26 creatinine 1.1 previously 0.98 so baseline Chest x-ray,CT chest abdomen did not show any cause for hypotension. Patient overall does not appear septic he does still feel weak and lightheaded he is not tachycardic he is received 2 L of fluid with minimal improvement in his blood pressure. Not convinced that his hypotension is secondary to his chronic anemia however am transfusing 1 unit of red blood cells. He remains awake alert and responsive. I think his hypotension is secondary to multiple new blood pressure medications that were given to him upon discharge week ago. There is no evidence of infection or sepsis Dr. Webb updated on patient's symptoms test results and recommends observation. Discharge Plan Departure Patient Disposition: Admitted as Observation Clinical Impression: Acute hypotension, Anemia Admit Date/Time: 01/26/23 12:27 Admit Provider: Eddie Webb
[2023-01-26 10:01] LABS: Add Manual Diff / Slide Review NO; Basophils Absolute Auto 0 /uL (0-100); Basophils Percent Auto 0.4 % (0-2); Eosinophils Absolute Auto 0 /uL (0-450); Eosinophils Percent Auto 0.3 % (2-4); Hematocrit 23.3 % (41-53); Hemoglobin 7.2 g/dL (13.5-17.5); Lymphocytes Absolute Auto 1300 /uL (1100-4500); Lymphocytes Percent Auto 17.1 % (25-40); Mean Corpuscular HGB Conc 30.9 % (30-36); Mean Corpuscular Volume 74.5 fL (80-100); Monocytes Absolute Auto 400 /uL (0-900); Monocytes Percent Auto 5.3 % (3-14); Neutrophils Absolute Auto 5700 /uL (1500-7000); Neutrophils Percent Auto 76.9 % (50-75); Platelet Count 232 X10^3/uL (150-400); Red Blood Cell Count 3.12 X10^6/uL (4.5-5.9); White Blood Cell Count 7.4 X10^3/uL (4.5-11.0)
[2023-01-26 10:11] LABS: INR 1.2 (0.9-1.3); Prothrombin Time 13.2 SECONDS (10.1-12.7)
[2023-01-26 10:14] LABS: PTT Partial Thromboplastin Tim 27 SECONDS (26-36)
[2023-01-26 10:18] LABS: Alanine Aminotransferase 21 IU/L (<50); Albumin 3.1 g/dL (3.5-5.0); Albumin Globulin Ratio 1.3 (1.0-2.8); Alkaline Phosphatase 90 U/L (38-126); Aspartate Aminotransferase 21 IU/L (17-59); BUN Creatinine Ratio 23.4 (6-22); Bilirubin Total 0.5 mg/dL (0.2-1.3); Blood Urea Nitrogen 26 mg/dL (9-20); Calcium 8.4 mg/dL (8.4-10.2); Carbon Dioxide 17 mmol/L (22-32); Chloride 110 mmol/L (98-107); Creatine Kinase 33 U/L (55-170); Estimated Glomerular Filt Rate > 60 mL/min (>60); Globulin 2.4 g/dL (1.7-4.1); Glucose 138 mg/dL (80-110); HEMOLYSIS < 15 (0-50); Lipase 63 U/L (23-300); Magnesium 1.5 mg/dL (1.6-2.3); Potassium 4.1 mmol/L (3.4-5.1); Sodium 136 mmol/L (137-145); Total Protein 5.5 g/dL (6.3-8.2)
[2023-01-26 10:28] LABS: Troponin I < 0.012 ng/mL (0.01-0.034)
--- NOTE | 2023-01-26 10:56 | DI.CT.S_ITS ---
PROCEDURE: CT CHEST ABD PEL W CON INDICATIONS: hypotension TECHNIQUE: After the administration of oral and intravenous contrast, axial sections acquired from the supraclavicular neck to the pubic symphysis. Coronal and sagittal reformats were performed. For radiation dose reduction, the following was used: automated exposure control, adjustment of mA and/or kV according to patient size. COMPARISON: [facility], CT, CT CHEST ABD PEL WO CON, 05/27/2022, 13:58. [facility], CT, CT ANGIO CHEST PE PROTOCOL, 08/28/2022, 16:47. FINDINGS: Image quality: Portions of the lower pelvis are suboptimally evaluated secondary to metallic streak artifact from spinal fusion hardware. CHEST: Lower Neck: No enlarged lymph nodes. Thyroid: Within normal limits. Axillae: No enlarged lymph nodes. Chest Wall: Unremarkable. Lungs and Airways: No consolidation or suspicious nodules. Pleura: No pneumothorax or pleural effusions. Heart: Heart size is normal. No pericardial effusion. Thoracic Vessels: The aorta and pulmonary arteries demonstrate normal size. Mediastinum and Donna: No enlarged lymph nodes. Esophagus: No wall thickening. Mild hiatal hernia. ABDOMEN: Liver: Hepatic steatosis. Gallbladder: Removed. Biliary ducts: Unremarkable. Pancreas: Unremarkable. Spleen: Unremarkable. Adrenal Glands: Unremarkable. Kidneys and Ureters: Nonobstructing 1 cm inferior left renal pole calculus Hounsfield units 11 40. Stomach and Bowel: Stomach, small bowel loops, and colon are nonobstructive. Scattered colonic diverticular present. Scattered colonic stool. Appendix is normal. Surgical changes reflecting gastric bypass are present. Peritoneum: No abnormal intraperitoneal fluid. No free air. Ventral Wall: Bowel containing ventral hernia without visualized incarceration, strangulation or obstruction. Abdominal Nodes: No retroperitoneal or mesenteric adenopathy by size criteria. Vessels: Aorta and inferior vena cava are normal in size. PELVIS: Pelvic Organs: Unremarkable. Bladder: Unremarkable. Pelvic Nodes: No enlarged lymph nodes. Miscellaneous: No inguinal hernias are seen. Bones: Unremarkable. IMPRESSION: 1. No acute intra-abdominal or pelvic process. 2. Scattered colonic stool without obstruction. Diverticulosis. 3. Bowel containing ventral hernia without incarceration, strangulation or obstruction. Dictated by: Brenda Crabtree M.D. on 01/26/2023 at 11:50 Approved by: Brenda Crabtree M.D. on 01/26/2023 at 11:53
--- NOTE | 2023-01-26 11:11 | PC.NURSE ---
Pt was recently admitted to the hospital for chest pain. 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 Patient is currently denying any chest pain, or pain today. His complaint is dizziness and lightheaded, hypotension. Patient laying flat in bed and educated why he cannot sit up.
[2023-01-26 14:11] LABS: Appearance Urine UA CLEAR; Bilirubin Urine UA NEGATIVE (NEGATIVE); Color Urine UA YELLOW; Glucose Urine UA NEGATIVE (Negative); Ketones Urine UA NEGATIVE (NEGATIVE); Leukocyte Esterase Urine UA NEGATIVE (NEGATIVE); Nitrite Urine UA NEGATIVE (Negative); Occult Blood Urine UA NEGATIVE (Negative); Protein Urine UA NEGATIVE (Negative); Urobilinogen Urine UA 0.2 E.U./dL (0.2)
[2023-01-26 14:14] LABS: Bacteria Urine None Seen; Culture Indicated Urine Cult Not Indicated; RBC Urine None Seen (0-5/HPF); Squamous Epithelial Cell Urine None Seen (0-5/HPF); WBC Urine None Seen (0-5/HPF)
--- NOTE | 2023-01-26 16:17 | P.HP_ITS ---
History of Present Illness History of Present Illness Date Patient Seen: 01/26/23 Time Patient Seen: 16:17 Chief complaint: shaky while driving Narrative: Kristian Yin is a 68yo M with PMH of GERD with gastric ulcer, HTN, HLD, DM2, depression, chronic anemia, and kidney stones who was recently here for an episode of chest pain, he was started on some new antihypertensives including amloidpine and imdur. We was given PPI and predisone as well for presumed costochondritis. He was feeling well up until today when he presented with persistent dizziness and blurred vision. He denies any slurred speech, weakness, difficulty ambulating. He denies chest pain at this time, no fever, chills, abdominal pain, nausea, vomiting, or LE edema. In the emergency room, BP was as low as 86/47. He was not tachycardic and the remainder of his vitals were unremarkable. Hg was 7.2, similar to prior studies done last admission. Mg was 1.5. He was given 1U PRBC transfusion, admitted for further management of hypotension. CT chest abdomen / pelvis showed no acute abnormalities. [facility] Medical History GERD (gastroesophageal reflux disease) HNP (herniated nucleus pulposus), lumbar History of bleeding ulcers Hypertriglyceridemia Non-insulin dependent type 2 diabetes mellitus HTN (hypertension) Nephrolithiasis Degenerative disc disease Surgical History History of vasectomy History of colonoscopy History of cholecystectomy History of gastric bypass History of cervical spinal surgery Status post lumbar surgery Family History Mother No known health problems Father No known health problems Social History household members: spouse and children Smoking Status: Former smoker alcohol intake: current Meds Home Medications and Allergies Home Medications Medication Instructions Recorded Confirmed Type diphenhydramine 25 2 tab PO BEDTIME PRN Pain (Scale 09/10/18 01/26/23 History mg-acetaminophen 500 mg tablet Score 1-3) (Tylenol PM Extra Strength) multivitamin 1 tab PO DAILY 09/10/18 01/26/23 History telmisartan 80 1 tab PO DAILY 09/10/18 01/26/23 History mg-hydrochlorothiazide 25 mg tablet fluoxetine 60 mg tablet 60 mg PO DAILY 12/18/20 01/26/23 History olanzapine 20 mg tablet 20 mg PO BEDTIME 12/18/20 01/26/23 History acetaminophen 325 mg tablet 650 mg (2 x 325 mg) PO Q6H PRN 01/18/23 01/26/23 Rx Fever/Mild Pain (1-3) #50 tabs amlodipine 5 mg tablet (Norvasc) 10 mg (2 x 5 mg) PO DAILY #30 tabs 01/18/23 01/26/23 Rx aspirin 81 mg tablet,delayed 81 mg PO DAILY #30 tabs 01/18/23 01/26/23 Rx release atorvastatin 20 mg tablet 40 mg (2 x 20 mg) PO BEDTIME #30 01/18/23 01/26/23 Rx tabs hydrocodone 5 mg-acetaminophen 325 1 tab PO Q6H PRN pain #30 tabs 01/18/23 01/26/23 Rx mg tablet isosorbide mononitrate 30 mg 60 mg (2 x 30 mg) PO DAILY #30 tabs 01/18/23 01/26/23 Rx tablet,extended release 24 hr lidocaine 5 % topical patch 1 patch topical 0630 #30 ea 01/18/23 01/26/23 Rx melatonin 3 mg tablet 6 mg (2 x 3 mg) PO BEDTIME PRN 01/18/23 01/26/23 Rx Insomnia #60 tabs metformin 1,000 mg tablet 1,000 mg PO BID #60 tabs 01/18/23 01/26/23 Rx nitroglycerin 0.4 mg sublingual 0.4 mg sublingual [id number] PRN 01/18/23 01/26/23 Rx tablet (Nitrostat) Chest Pain #30 tabs ondansetron 4 mg disintegrating 4 mg PO Q4HR PRN NV #30 tabs 01/18/23 01/26/23 Rx tablet pantoprazole 20 mg tablet,delayed 40 mg (2 x 20 mg) PO 0700 #30 tabs 01/18/23 01/26/23 Rx release polyethylene glycol 3350 17 gram 17 gm PO DAILY PRN Constipation 01/18/23 01/26/23 Rx oral powder packet #15 ea prednisone 20 mg tablet 40 mg (2 x 20 mg) PO DAILY #6 tabs 01/18/23 01/26/23 Rx sennosides 8.6 mg tablet (senna) 8.6 mg PO BID PRN Constipation #30 01/18/23 01/26/23 Rx tabs tamsulosin 0.4 mg capsule (Flomax) 0.8 mg (2 x 0.4 mg) PO DAILY #30 01/18/23 01/26/23 Rx caps Allergies Allergy/AdvReac Type Severity Reaction Status Date / Time NSAIDS (Non-Steroidal AdvReac Mild CAN TAKE, Verified 01/26/23 10:16 Anti-Inflamma BUT TRIES [NSAIDS (NON-STEROIDAL TO AVOID ANTI-INFLAMMA] R/T GASTRIC BYPASS Review of Systems Review of Systems Narrative: All other systems reviewed with the patient and are negative unless otherwise stated. Exam Vital Signs (past 8 hours): - 01/26/23 09:38 01/26/23 10:12 01/26/23 10:30 Temperature 98.6 F Pulse Rate 72 63 57 L Respiratory Rate 17 15 19 Blood Pressure 82/51 L Pulse Oximetry 98 100 100 Oxygen Delivery Method Room Air Room Air Oxygen Flow Rate 01/26/23 10:30 01/26/23 10:50 01/26/23 10:50 Temperature Pulse Rate 61 Respiratory Rate 24 Blood Pressure 86/47 L 88/52 L Pulse Oximetry 98 Oxygen Delivery Method Oxygen Flow Rate 01/26/23 11:00 01/26/23 11:00 01/26/23 11:10 Temperature Pulse Rate 62 Respiratory Rate 20 Blood Pressure 89/51 L 96/50 L Pulse Oximetry 100 Oxygen Delivery Method Oxygen Flow Rate 01/26/23 11:10 01/26/23 11:26 01/26/23 11:26 Temperature Pulse Rate 63 76 Respiratory Rate 23 23 Blood Pressure 98/54 L Pulse Oximetry 100 98 Oxygen Delivery Method Room Air Oxygen Flow Rate 01/26/23 11:30 01/26/23 11:30 01/26/23 11:40 Temperature Pulse Rate 68 65 Respiratory Rate 23 18 Blood Pressure 96/54 L Pulse Oximetry 100 98 Oxygen Delivery Method Room Air Room Air Oxygen Flow Rate 01/26/23 11:40 01/26/23 11:50 01/26/23 11:50 Temperature Pulse Rate 69 Respiratory Rate 26 H Blood Pressure 87/50 L 93/55 L Pulse Oximetry 98 Oxygen Delivery Method Oxygen Flow Rate 01/26/23 12:00 01/26/23 12:00 01/26/23 12:10 Temperature Pulse Rate 63 Respiratory Rate 19 Blood Pressure 87/50 L 91/54 L Pulse Oximetry 95 Oxygen Delivery Method Oxygen Flow Rate 01/26/23 12:10 01/26/23 12:20 01/26/23 12:20 Temperature Pulse Rate 66 66 Respiratory Rate 21 20 Blood Pressure 93/55 L Pulse Oximetry 98 97 Oxygen Delivery Method Room Air Oxygen Flow Rate 01/26/23 12:30 01/26/23 12:30 01/26/23 12:40 Temperature Pulse Rate 71 Respiratory Rate 22 Blood Pressure 88/51 L 87/49 L Pulse Oximetry 96 Oxygen Delivery Method Oxygen Flow Rate 01/26/23 12:40 01/26/23 12:50 01/26/23 12:50 Temperature Pulse Rate 68 68 Respiratory Rate 23 20 Blood Pressure 96/54 L Pulse Oximetry 96 95 Oxygen Delivery Method Room Air Room Air Oxygen Flow Rate 01/26/23 13:05 01/26/23 13:15 01/26/23 13:30 Temperature 98.5 F 98.5 F 99.2 F Pulse Rate 75 73 68 Respiratory Rate 18 13 14 Blood Pressure 103/53 L 103/53 L 104/50 L Pulse Oximetry 98 Oxygen Delivery Method Oxygen Flow Rate 0 01/26/23 15:53 Temperature 98.7 F Pulse Rate 79 Respiratory Rate 14 Blood Pressure 123/58 L Pulse Oximetry Oxygen Delivery Method Oxygen Flow Rate Oxygen Delivery Method Room Air Oxygen Flow Rate 0 Narrative Exam Narrative: GEN: no acute distress HEENT: moist mucous membranes, PERRL NECK: trachea midline, no JVD CV: regular rate and rhythm, no murmurs PULM: clear bilaterally ABD: soft, nontender, nondistended, no organomegaly EXT: warm and well perfused with no edema NEURO: awake, alert, oriented, no focal deficits Objective ECG Impression: Sinus rhythm with premature atrial complexes Left axis deviation Similar to prior tracings Labs 01/26/23 09:50 01/26/23 09:50 Labs: Laboratory Results - last 24 hr 01/26/23 01/26/23 01/26/23 09:50 11:00 12:55 WBC 7.4 RBC 3.12 L Hgb 7.2 L Hct 23.3 L MCV 74.5 L MCH 23.0 L MCHC 30.9 RDW 18.0 H Plt Count 232 Neut % (Auto) 76.9 H Lymph % (Auto) 17.1 L [place] % (Auto) 5.3 Eos % (Auto) 0.3 L Baso % (Auto) 0.4 Neut # (Auto) 5700 Lymph # (Auto) 1300 [place] # (Auto) 400 Eos # (Auto) 0 Baso # (Auto) 0 PT 13.2 H INR 1.2 APTT 27 Sodium 136 L Potassium 4.1 Chloride 110 H Carbon Dioxide 17 L BUN 26 H Creatinine 1.11 Estimated GFR > 60 BUN/Creatinine Ratio 23.4 H Glucose 138 H Calcium 8.4 Magnesium 1.5 L Total Bilirubin 0.5 AST 21 ALT 21 Alkaline Phosphatase 90 Total Creatine Kinase 33 L Troponin I < 0.012 Total Protein 5.5 L Albumin 3.1 L Globulin 2.4 Albumin/Globulin Ratio 1.3 Lipase 63 D Urine Color Yellow Urine Appearance Clear Urine pH 5.0 Ur Specific [place] 1.010 Urine Protein Negative Urine Glucose (UA) Negative Urine Ketones Negative Urine Occult Blood Negative Urine Nitrate Negative Urine Bilirubin Negative Urine Urobilinogen 0.2 Ur Leukocyte Esterase Negative Urine RBC None seen Urine WBC None seen Ur Squamous Epith Cells None seen Urine Bacteria None seen Ur Culture Indicated? Cult not indicated Blood Type O Positive Antibody Screen Negative Crossmatch See Detail Assessment & Plan Assessment & Plan narrative: 1. Hypotension due to drug - suspect due to iatrogenic source with new BP medications in combination with his chronic anemia - will continue to monitor after hold BP medications, getting 1U PRBC transfusion - can stop additional IV fluids for now if BP improved. - troponin negative and EKG unchange, unlikely ACS - No aneurysm or other acute or infectious etiology noted on CT imaging or UA. 2. Chronic microcytic anemia, possibly newly symptomatic - check iron profile if able to add on to pre-transfusion labs - f/u response to 1U PRBC transfusion with repeat h/h - continue PO PPI BID # DM2 -hold metformin for now with mild acidosis on labs, FS ACHS but last A1c 6.4% recently. # HTN -hold home BP meds for now. Will stop recent additions, add back home telmisartan hctz if hypertensive only. # depression -continue prozac and olanzapine Code status is full code. DVT prophylaxis with enoxaparin given stable anemia. Proxy is spouse Cecy. I have reviewed home meds and used all available resources to reconcile the home meds. Case discussed with ED physician where additional history was gathered, patient will be admitted to the hospitalist service for further workup and management. This patient will be admitted as observation and will require less than 2 midnights of hospital time to treat atypical chest pain. Quality MIPS - Admit I confirm the patient?s Advance Care Plan is present, Code status is documented, Surrogate decision maker is in patient?s record [If Yes, STOP here]: Yes
[2023-01-26 17:03] LABS: HEMOLYSIS 37 (0-50); Iron 34 ug/dL (49-181)
[2023-01-26 17:14] LABS: Percent Iron Saturation 10 % (20-50); Total Iron Binding Capacity 355 ug/dL (261-462); Transferrin 262 mg/dL (206-381)
[2023-01-26 21:18] LABS: Hematocrit 25.4 % (41-53)
[2023-01-26] MEDS: OLANZapine 2.5 MG TABLET 20 MG PO (21:19)
[2023-01-26] MEDS: MELATONIN 3 MG TABLET 6 MG PO (21:19)
[2023-01-26] MEDS: ATORVASTATIN 20 MG TABLET 40 MG PO (21:19)
[2023-01-27] VITALS (11 sets, daily range): BP systolic 112–145; BP diastolic 47–73; PULSE 61–69; RESP 17–20; TEMP 36.1–36.8; O2SAT 94–99
[2023-01-27 05:54] LABS: Add Manual Diff / Slide Review NO; Basophils Absolute Auto 0 /uL (0-100); Basophils Percent Auto 0.6 % (0-2); Eosinophils Absolute Auto 100 /uL (0-450); Eosinophils Percent Auto 1.2 % (2-4); Hematocrit 26.5 % (41-53); Hemoglobin 8.4 g/dL (13.5-17.5); Lymphocytes Absolute Auto 1500 /uL (1100-4500); Lymphocytes Percent Auto 25.7 % (25-40); Mean Corpuscular HGB Conc 31.8 % (30-36); Mean Corpuscular Hemoglobin 23.5 PG (26-34); Mean Corpuscular Volume 73.9 fL (80-100); Monocytes Absolute Auto 500 /uL (0-900); Monocytes Percent Auto 8.9 % (3-14); Neutrophils Absolute Auto 3800 /uL (1500-7000); Neutrophils Percent Auto 63.6 % (50-75); Platelet Count 219 X10^3/uL (150-400); Red Blood Cell Count 3.58 X10^6/uL (4.5-5.9); Red Cell Distribution Width 18.6 % (11.6-14.8)
[2023-01-27 06:05] LABS: BUN Creatinine Ratio 22.6 (6-22); Blood Urea Nitrogen 19 mg/dL (9-20); Calcium 9.1 mg/dL (8.4-10.2); Carbon Dioxide 25 mmol/L (22-32); Chloride 109 mmol/L (98-107); Estimated Glomerular Filt Rate > 60 mL/min (>60); Glucose 92 mg/dL (80-110); HEMOLYSIS < 15 (0-50); Magnesium 1.6 mg/dL (1.6-2.3); Potassium 4.5 mmol/L (3.4-5.1); Sodium 138 mmol/L (137-145)
[2023-01-27] MEDS: MAGNESIUM CHLORIDE 64 MG TABLET 128 MG PO (09:40)
[2023-01-27] MEDS: MECLIZINE HCL 12.5 MG TABLET 25 MG PO (11:38)
--- NOTE | 2023-01-27 15:28 | DI.MRI.S_ITS ---
PROCEDURE: MR HEAD/BRAIN WO CON INDICATIONS: persistent dizziness, r/o posterior CVA TECHNIQUE: Noncontrast axial T1 spin echo, axial T2 fast spin echo, sagittal and axial FLAIR, coronal T2 fast spin echo, axial gradient echo, axial diffusion and ADC through the brain. COMPARISON: None. FINDINGS: Image quality: Excellent. CSF Spaces: Basal cisterns are patent. No extra-axial fluid collections. Ventricles are normal in size and shape. Brain: No intracranial masses or hemorrhage. Diaz/white matter interface is normal. Brainstem appears normal. Diffusion-weighted sequence is unremarkable without evidence of acute infarct. Normal intravascular flow voids are present. Skull and face: Calvarium has normal marrow signal. Orbits appear normal. Sinuses: Sinuses and mastoids are clear. IMPRESSION: Unremarkable MR brain. No evidence of acute infarct, hemorrhage or mass lesion. Approved by: Conner Mendoza M.D. on 01/27/2023 at 16:22
--- NOTE | 2023-01-27 15:42 | P.PN_ITS ---
Subjective Subjective Interval history: Patient continues to have dizziness today, at rest but with improved blood pressures. Orthostatics negative at bedside today. Trialed meclizine with some improvement. He reports new blurred vision as well with the dizziness. These have been improving throughout the day. Have ordered MRI to rule out posterior stroke as to the underlying etiology. Exam Vital Signs (past 8 hours): - 01/27/23 09:00 01/27/23 09:00 01/27/23 13:00 Temperature 97.7 F 98.2 F Pulse Rate 64 61 Respiratory Rate 18 17 Blood Pressure 142/71 H 133/62 Pulse Oximetry 96 95 99 Oxygen Delivery Method Oxygen Flow Rate 0 0 01/27/23 13:00 Temperature Pulse Rate Respiratory Rate Blood Pressure Pulse Oximetry 99 Oxygen Delivery Method Room Air Oxygen Flow Rate Oxygen Delivery Method Room Air Oxygen Flow Rate 0 Narrative Exam Narrative: GEN: no acute distress HEENT: moist mucous membranes, PERRL, no nystagmus noted. NECK: trachea midline, no JVD CV: regular rate and rhythm, no murmurs PULM: clear bilaterally ABD: soft, nontender, nondistended, no organomegaly EXT: warm and well perfused with no edema NEURO: awake, alert, oriented, no focal deficits but is dizzy with minimal movement. Objective Labs 01/27/23 05:15 01/27/23 05:15 Labs: Laboratory Results - last 24 hr 01/26/23 01/26/23 01/26/23 09:50 11:00 21:12 WBC RBC Hgb 8.0 L Hct 25.4 L MCV MCH MCHC RDW Plt Count Neut % (Auto) Lymph % (Auto) [place] % (Auto) Eos % (Auto) Baso % (Auto) Neut # (Auto) Lymph # (Auto) [place] # (Auto) Eos # (Auto) Baso # (Auto) Sodium Potassium Chloride Carbon Dioxide BUN Creatinine Estimated GFR BUN/Creatinine Ratio Glucose Calcium Magnesium Iron 34 L TIBC 355 % Saturation 10 L Transferrin 262 Crossmatch See Detail 01/27/23 05:15 WBC 6.0 RBC 3.58 L Hgb 8.4 L Hct 26.5 L MCV 73.9 L MCH 23.5 L MCHC 31.8 RDW 18.6 H Plt Count 219 Neut % (Auto) 63.6 Lymph % (Auto) 25.7 [place] % (Auto) 8.9 Eos % (Auto) 1.2 L Baso % (Auto) 0.6 Neut # (Auto) 3800 Lymph # (Auto) 1500 [place] # (Auto) 500 Eos # (Auto) 100 Baso # (Auto) 0 Sodium 138 Potassium 4.5 Chloride 109 H Carbon Dioxide 25 BUN 19 Creatinine 0.84 Estimated GFR > 60 BUN/Creatinine Ratio 22.6 H Glucose 92 Calcium 9.1 Magnesium 1.6 Iron TIBC % Saturation Transferrin Crossmatch [facility] Medical History GERD (gastroesophageal reflux disease) HNP (herniated nucleus pulposus), lumbar History of bleeding ulcers Hypertriglyceridemia Non-insulin dependent type 2 diabetes mellitus HTN (hypertension) Nephrolithiasis Degenerative disc disease Surgical History History of vasectomy History of colonoscopy History of cholecystectomy History of gastric bypass History of cervical spinal surgery Status post lumbar surgery Family History Mother No known health problems Father No known health problems Social History household members: spouse and children Smoking Status: Former smoker alcohol intake: current Assessment & Plan Assessment & Plan narrative: 1. Hypotension possibly due to drug, persistent dizzines. - suspect due to iatrogenic source with new BP medications in combination with his chronic anemia - s/p 1U PRBC, no improvement in dizziness despite improvement in BP. - will stop IV fluids with improvement in BP. Orthostatics negative at bedside today. - troponin negative and EKG unchange, unlikely ACS - No aneurysm or other acute or infectious etiology noted on CT imaging or UA. - with persistent dizziness and improved BP will check MRI today to rule out posterior CVA as etiology for presentation. 2. Chronic microcytic anemia, possibly newly symptomatic - iron profile consistent with iron deficiency.h/h improved with 1U PRBC as expected. - continue PO PPI BID - start iron supplementation. Outpatient evaluation with EGD and colonoscopy recommended. # DM2 -hold metformin for now with mild acidosis on labs, FS ACHS but last A1c 6.4% recently. # HTN -hold home BP meds for now. Will stop recent additions, add back home telmisartan hctz if hypertensive only. # depression -continue prozac and olanzapine Code status is full code. DVT prophylaxis with enoxaparin given stable anemia. Proxy is spouse Cecy. I have reviewed home meds and used all available resources to reconcile the home meds. Case discussed with case management to form the above assessment and plan.
--- NOTE | 2023-01-27 17:59 | PC.NURSE ---
a/oriented. voices needs. quiet and softspoken. glucochecks: 92, 115 +105 meclizine given x 1 today w/ no real effect. patient reports dizziness still when going from laying to sitting. orthos VS negative. ind w/ mobility and ADL assist. asked patient to call for assist when getting OOB. MRI brain neg. report to balbir.
--- NOTE | 2023-01-27 18:05 | CM.DPNOTE ---
DCP Note PCP Shin Acosta [facility] SEARCH ENGINE OPTIMIZATION ANALYST reviewed EMR. Patient is a 68yo M here for dizziness and blurred vision. He was here 01/16/23 through 01/18/23 for chest pain. Per provider PN, continues to have dizziness but BP improved. Ordered MRI for possible stroke. SEARCH ENGINE OPTIMIZATION ANALYST unable to meet with today due to triaging needs. Per previous DCP assessment, Pt has a PMH of gastric bypass, gastric ulcers, GERD, hiatal hernia, HTN, Type 2 DM, depression and is a current smoker...Pt states that he currently lives with his and daughter in a home on [address]. Pt states that he is independent at baseline and currently still drives. Pt denies any DME use. Pt states that once he is discharged, pt , Cecy, will pick him up to take him home. Pt denies any needs at this time. Pt denies any hx of HH or SNF (DCP Assessment Note, 01/18/23). Per current chart review, no needs from CM team identified at this time. Plan: likely home with family when medically stable. No needs identified at this time. CM team will continue to follow as needed. ADAM Robins
[2023-01-27] MEDS: MELATONIN 3 MG TABLET 6 MG PO (20:45)
[2023-01-27] MEDS: ATORVASTATIN 20 MG TABLET 40 MG PO (20:45)
[2023-01-27] MEDS: OLANZapine 2.5 MG TABLET 20 MG PO (20:46)
[2023-01-28] VITALS (14 sets, daily range): BP systolic 95–150; BP diastolic 52–77; PULSE 60–86; RESP 17–18; TEMP 36.6–37.3; O2SAT 93–100
[2023-01-28 05:31] LABS: Add Manual Diff / Slide Review NO; Basophils Absolute Auto 100 /uL (0-100); Basophils Percent Auto 0.9 % (0-2); Eosinophils Absolute Auto 100 /uL (0-450); Eosinophils Percent Auto 1.3 % (2-4); Hematocrit 28.1 % (41-53); Hemoglobin 8.9 g/dL (13.5-17.5); Lymphocytes Absolute Auto 2000 /uL (1100-4500); Lymphocytes Percent Auto 30.8 % (25-40); Mean Corpuscular HGB Conc 31.7 % (30-36); Mean Corpuscular Hemoglobin 23.6 PG (26-34); Mean Corpuscular Volume 74.5 fL (80-100); Monocytes Absolute Auto 700 /uL (0-900); Monocytes Percent Auto 11.3 % (3-14); Neutrophils Absolute Auto 3700 /uL (1500-7000); Neutrophils Percent Auto 55.7 % (50-75); Platelet Count 226 X10^3/uL (150-400); Red Blood Cell Count 3.76 X10^6/uL (4.5-5.9); Red Cell Distribution Width 18.4 % (11.6-14.8); White Blood Cell Count 6.6 X10^3/uL (4.5-11.0)
[2023-01-28 05:40] LABS: BUN Creatinine Ratio 20.7 (6-22); Blood Urea Nitrogen 17 mg/dL (9-20); Carbon Dioxide 25 mmol/L (22-32); Chloride 108 mmol/L (98-107); Estimated Glomerular Filt Rate > 60 mL/min (>60); Glucose 87 mg/dL (80-110); HEMOLYSIS < 15 (0-50); Magnesium 1.5 mg/dL (1.6-2.3); Potassium 4.1 mmol/L (3.4-5.1); Sodium 138 mmol/L (137-145)
[2023-01-28] MEDS: PANTOPRAZOLE DR 20 MG TABLET 40 MG PO (06:18)
[2023-01-28] MEDS: ENOXAPARIN 40 MG/0.4 ML SYRINGE SUBCUT (08:58)
[2023-01-28] MEDS: MIDODRINE HCL 5 MG TABLET PO ×3 (10:04→17:02)
[2023-01-28] MEDS: MAGNESIUM CHLORIDE 64 MG TABLET 128 MG PO (11:25)
--- NOTE | 2023-01-28 12:06 | PM.PN.1 ---
Subjective Subjective Interval history: Patient continues to have dizziness today, at rest but with improved blood pressures. Orthostatics borderline positive. Trialed meclizine with minimal improvement. MRI negative for posterior CVA. Started midodrine this morning to see if improvement in symptoms. Exam Vital Signs (past 8 hours): - 01/28/23 05:00 01/28/23 07:45 01/28/23 09:01 Temperature 99.1 F Pulse Rate 64 Pulse Rate [Orthostatic Lying] Pulse Rate [Orthostatic Sitting] Pulse Rate [Orthostatic Standing] Respiratory Rate 18 Blood Pressure 130/65 Blood Pressure [Orthostatic Lying] Blood Pressure [Orthostatic Sitting] Blood Pressure [Orthostatic Standing] Pulse Oximetry 93 100 97 Oxygen Delivery Method Room Air Room Air Oxygen Flow Rate 0 0 01/28/23 09:37 Temperature Pulse Rate Pulse Rate [Orthostatic Lying] 70 Pulse Rate [Orthostatic Sitting] 77 Pulse Rate [Orthostatic Standing] 86 Respiratory Rate Blood Pressure Blood Pressure [Orthostatic Lying] 105/59 L Blood Pressure [Orthostatic Sitting] 105/77 Blood Pressure [Orthostatic Standing] 95/52 L Pulse Oximetry Oxygen Delivery Method Oxygen Flow Rate Oxygen Delivery Method Room Air Oxygen Flow Rate 0 Narrative Exam Narrative: GEN: no acute distress HEENT: moist mucous membranes, PERRL, no nystagmus noted. NECK: trachea midline, no JVD CV: regular rate and rhythm, no murmurs PULM: clear bilaterally ABD: soft, nontender, nondistended, no organomegaly EXT: warm and well perfused with no edema NEURO: awake, alert, oriented, no focal deficits but is dizzy with minimal movement. Objective Labs 01/28/23 05:05 01/28/23 05:05 Labs: Laboratory Results - last 24 hr 01/28/23 05:05 WBC 6.6 RBC 3.76 L Hgb 8.9 L Hct 28.1 L MCV 74.5 L MCH 23.6 L MCHC 31.7 RDW 18.4 H Plt Count 226 Neut % (Auto) 55.7 Lymph % (Auto) 30.8 [place] % (Auto) 11.3 Eos % (Auto) 1.3 L Baso % (Auto) 0.9 Neut # (Auto) 3700 Lymph # (Auto) 2000 [place] # (Auto) 700 Eos # (Auto) 100 Baso # (Auto) 100 Sodium 138 Potassium 4.1 Chloride 108 H Carbon Dioxide 25 BUN 17 Creatinine 0.82 Estimated GFR > 60 BUN/Creatinine Ratio 20.7 Glucose 87 Calcium 9.0 Magnesium 1.5 L PFSH Medical History GERD (gastroesophageal reflux disease) HNP (herniated nucleus pulposus), lumbar History of bleeding ulcers Hypertriglyceridemia Non-insulin dependent type 2 diabetes mellitus HTN (hypertension) Nephrolithiasis Degenerative disc disease Surgical History History of vasectomy History of colonoscopy History of cholecystectomy History of gastric bypass History of cervical spinal surgery Status post lumbar surgery Family History Mother No known health problems Father No known health problems Social History household members: spouse and children Smoking Status: Former smoker alcohol intake: current Assessment & Plan Assessment & Plan narrative: 1. Hypotension possibly due to drug, persistent dizzines. - suspect due to iatrogenic source with new BP medications in combination with his chronic anemia - s/p 1U PRBC, no improvement in dizziness despite improvement in BP. - stopped IV fluids with improvement in BP. Orthostatics borderline positive at bedside today. - troponin negative and EKG unchange, unlikely ACS - No aneurysm or other acute or infectious etiology noted on CT imaging or UA. - with persistent dizziness and improved BP MRI done which did not show posterior stroke. - Start midodrine 5 mg TID, increase as needed depending on BP and symptoms. 2. Chronic microcytic anemia, possibly newly symptomatic - iron profile consistent with iron deficiency.h/h improved with 1U PRBC as expected. - continue PO PPI BID - start iron supplementation. Outpatient evaluation with EGD and colonoscopy recommended. # DM2 -hold metformin for now with mild acidosis on labs, FS ACHS but last A1c 6.4% recently. # HTN -hold home BP meds for now. Will stop recent additions, add back home telmisartan hctz if hypertensive only. # depression -continue prozac and olanzapine Code status is full code. DVT prophylaxis with enoxaparin given stable anemia. Proxy is spouse Cecy. I have reviewed home meds and used all available resources to reconcile the home meds. Case discussed with case management to form the above assessment and plan.
[2023-01-28] MEDS: ATORVASTATIN 20 MG TABLET 40 MG PO (20:06)
[2023-01-28] MEDS: MELATONIN 3 MG TABLET 6 MG PO (20:06)
[2023-01-28] MEDS: OLANZapine 2.5 MG TABLET 20 MG PO (20:21)
[2023-01-29 01:00] VITALS: O2SAT 95
[2023-01-29 04:00] VITALS: BP 135/70; PULSE 63; RESP 18; TEMP 37; O2SAT 95
[2023-01-29 05:00] VITALS: O2SAT 96
[2023-01-29 06:10] LABS: Blood Urea Nitrogen 19 mg/dL (9-20); Carbon Dioxide 24 mmol/L (22-32); Chloride 110 mmol/L (98-107); Estimated Glomerular Filt Rate > 60 mL/min (>60); Glucose 86 mg/dL (80-110); HEMOLYSIS < 15 (0-50); Magnesium 1.5 mg/dL (1.6-2.3); Potassium 3.9 mmol/L (3.4-5.1); Sodium 137 mmol/L (137-145)
[2023-01-29] MEDS: PANTOPRAZOLE DR 20 MG TABLET 40 MG PO (06:54)
[2023-01-29] MEDS: MIDODRINE HCL 5 MG TABLET PO ×2 (06:55→11:33)
[2023-01-29] MEDS: MAGNESIUM CHLORIDE 64 MG TABLET 128 MG PO (07:32)
[2023-01-29 07:44] VITALS: BP 126/65; O2SAT 94
[2023-01-29] MEDS: ENOXAPARIN 40 MG/0.4 ML SYRINGE SUBCUT (08:26)
[2023-01-29] MEDS: MAGNESIUM SULFATE 4 GM/100 ML PIGGYBACK IV (09:20)
[2023-01-29 11:00] VITALS: O2SAT 95
--- NOTE | 2023-01-29 11:17 | PM.DS.1 ---
History of Present Illness History of Present Illness Date Patient Seen: 01/26/23 Time Patient Seen: 16:17 Chief complaint: shaky while driving Narrative: Kristian Yin is a 68yo M with PMH of GERD with gastric ulcer, HTN, HLD, DM2, depression, chronic anemia, and kidney stones who was recently here for an episode of chest pain, he was started on some new antihypertensives including amloidpine and imdur. We was given PPI and predisone as well for presumed costochondritis. He was feeling well up until today when he presented with persistent dizziness and blurred vision. He denies any slurred speech, weakness, difficulty ambulating. He denies chest pain at this time, no fever, chills, abdominal pain, nausea, vomiting, or LE edema. In the emergency room, BP was as low as 86/47. He was not tachycardic and the remainder of his vitals were unremarkable. Hg was 7.2, similar to prior studies done last admission. Mg was 1.5. He was given 1U PRBC transfusion, admitted for further management of hypotension. CT chest abdomen / pelvis showed no acute abnormalities. Discharge Providers Provider Date of admission: 01/26/23 12:27 Discharge Date: 01/29/23 Primary care physician: Shin José PA-C Discharge provider: Buck Harmon DO Summary Hospital Course Discharge Diagnosis: 1. Hypotension possibly due to drug, persistent dizzines. - suspect due to iatrogenic source with new BP medications in combination with his chronic anemia - s/p 1U PRBC, no improvement in dizziness despite improvement in BP. - stopped IV fluids with improvement in BP. Orthostatics borderline positive at bedside today. - troponin negative and EKG unchange, unlikely ACS - No aneurysm or other acute or infectious etiology noted on CT imaging or UA. - with persistent dizziness and improved BP MRI done which did not show posterior stroke. - Start midodrine 5 mg TID, increase as needed depending on BP and symptoms. 2. Chronic microcytic anemia, possibly newly symptomatic - iron profile consistent with iron deficiency.h/h improved with 1U PRBC as expected. - continue PO PPI BID - start iron supplementation. Outpatient evaluation with EGD and colonoscopy recommended. # DM2 -hold metformin for now with mild acidosis on labs, FS ACHS but last A1c 6.4% recently. # HTN -hold home BP meds for now. Will stop recent additions, add back home telmisartan hctz if hypertensive only. # depression -continue prozac and olanzapine Hospital Course: Admitted for dizziness and hypotension. Home BP meds and flomax stopped and put on midodrine with improvement. Discharged on midodrine 5mg TID until f/up with PCP to adjust. His BP meds were stopped, along with flomax and his imdur was lowered to 30mg daily down from 60mg. Exam Vital Signs (past 8 hours): - 01/29/23 04:00 01/29/23 05:00 01/29/23 07:44 Temperature 98.6 F Pulse Rate 63 Respiratory Rate 18 Blood Pressure 135/70 126/65 Pulse Oximetry 95 96 94 Oxygen Delivery Method Room Air Oxygen Flow Rate 0 01/29/23 07:44 01/29/23 11:00 Temperature Pulse Rate Respiratory Rate Blood Pressure Pulse Oximetry 94 95 Oxygen Delivery Method Room Air Room Air Oxygen Flow Rate 0 Oxygen Delivery Method Room Air Oxygen Flow Rate 0 Narrative Exam Narrative: GEN: no acute distress HEENT: moist mucous membranes, PERRL, no nystagmus noted. NECK: trachea midline, no JVD CV: regular rate and rhythm, no murmurs PULM: clear bilaterally ABD: soft, nontender, nondistended, no organomegaly EXT: warm and well perfused with no edema NEURO: awake, alert, oriented, no focal deficits but is dizzy with minimal movement. Objective Labs 01/28/23 05:05 01/29/23 05:00 Labs: Laboratory Results - last 24 hr 01/29/23 05:00 Sodium 137 Potassium 3.9 Chloride 110 H Carbon Dioxide 24 BUN 19 Creatinine 0.73 Estimated GFR > 60 BUN/Creatinine Ratio 26.0 H Glucose 86 Calcium 9.0 Magnesium 1.5 L PFSH Medical History GERD (gastroesophageal reflux disease) HNP (herniated nucleus pulposus), lumbar History of bleeding ulcers Hypertriglyceridemia Non-insulin dependent type 2 diabetes mellitus HTN (hypertension) Nephrolithiasis Degenerative disc disease Surgical History History of vasectomy History of colonoscopy History of cholecystectomy History of gastric bypass History of cervical spinal surgery Status post lumbar surgery Family History Mother No known health problems Father No known health problems Social History household members: spouse and children Smoking Status: Former smoker alcohol intake: current Discharge Plan Discharge Plan Patient Disposition: Home Provider Discharge Comment: You were admitted for dizziness and your blood pressure was quite low. I have now stopped your blood pressure medications and adjusted your Flomax and Imdur to lower doses. We found you are anemic and had put you on an iron supplement. You are also now going to take a blood pressure raising pill called midodrine but I would only take this for up to 1 month. Discharge orders & Medications Prescriptions: New ferrous sulfate 325 mg (65 mg iron) Tablet 325 mg PO DAILY Qty: 90 0RF midodrine 5 mg Tablet 5 mg PO 0600,1200,1800 30 Days Qty: 90 0RF Continued sennosides [senna] 8.6 mg Tablet 8.6 mg PO BID PRN (Reason: Constipation) Qty: 30 0RF acetaminophen 325 mg Tablet 650 mg PO Q6H PRN (Reason: Fever/Mild Pain (1-3)) Qty: 50 0RF atorvastatin 20 mg Tablet 40 mg PO BEDTIME Qty: 30 0RF polyethylene glycol 3350 17 gram Powder In Packet 17 gm PO DAILY PRN (Reason: Constipation) Qty: 15 0RF hydrocodone-acetaminophen 5-325 mg Tablet 1 tab PO Q6H PRN (Reason: pain) Qty: 30 0RF prednisone 20 mg Tablet 40 mg PO DAILY Qty: 6 0RF melatonin 3 mg Tablet 6 mg PO BEDTIME PRN (Reason: Insomnia) Qty: 60 0RF aspirin 81 mg Tablet,Delayed Release (Dr/Ec) 81 mg PO DAILY Qty: 30 0RF pantoprazole 20 mg Tablet,Delayed Release (Dr/Ec) 40 mg PO 0700 Qty: 30 0RF lidocaine 5 % Adhesive Patch,Medicated 1 patch topical 0630 Qty: 30 0RF nitroglycerin [Nitrostat] 0.4 mg Tablet, Sublingual 0.4 mg sublingual [id number] PRN (Reason: Chest Pain) Qty: 30 0RF ondansetron 4 mg Tablet,Disintegrating 4 mg PO Q4HR PRN (Reason: NV) Qty: 30 0RF metformin 1,000 mg tablet 1,000 mg PO BID Qty: 60 0RF multivitamin Tablet 1 tab PO DAILY diphenhydramine-acetaminophen [Tylenol PM Extra Strength] 25-500 mg Tablet 2 tab PO BEDTIME PRN (Reason: Pain (Scale Score 1-3)) olanzapine 20 mg tablet 20 mg PO BEDTIME Patient Comments: take 1 tablet by mouth at bedtime fluoxetine 60 mg tablet 60 mg PO DAILY Patient Comments: take 1 tablet by mouth once daily Changed isosorbide mononitrate 30 mg Tablet Extended Release 24 Hr 30 mg PO DAILY Qty: 30 0RF tamsulosin [Flomax] 0.4 mg Capsule 0.4 mg PO DAILY Qty: 30 0RF Discontinued amlodipine [Norvasc] 5 mg Tablet 10 mg PO DAILY Qty: 30 0RF telmisartan-hydrochlorothiazid 80-25 mg tablet 1 tab PO DAILY Follow up/Referrals: Shin José PA-C [Primary Care Provider] - 2 Weeks Visit Report/Discharge Packet Instructions: Anemia, DI for Hypotension Stand Alone Forms: Patient Portal/API, Stroke Signs & Symptoms Discharge Data Primary Care Provider: Shin José Attending Provider: Eddie Webb Admit Date/Time: 01/26/23 12:27
[2023-01-29] MEDS: FERROUS SULFATE 325 MG TABLET PO (11:33)
--- NOTE | 2023-01-29 12:16 | CM.DANOTE ---
Initial DCP Assessment Note Pt is a 68 yo male, resident of [place], recently here for an episode of chest pain, comes to the floor under an observation stay for monitoring of abnormal labs, dizziness and weakness. PCP: Shin José Payer: [employer] Reviewed chart, pt discussed in multidisciplinary rounds this morning. Patient discharge home today, sx have improved, close outpatient follow up recommended. Patient lives w/spouse, independent at his baseline, no barriers identified at this time to patient's safe discharge home w/family to assist. ADAM Hanna Discharge Planning/Care Management CM Discharge Assessment Start: 01/29/23 11:39 Freq: Status: Active Protocol: Document 01/29/23 11:40 MIGUEL (Rec: 01/29/23 12:16 MIGUEL [id number]) Discharge Planning Assessment Assigned Library Technical Assistant ADAM Ramirez DPOA/Assigned Designee Name Cecy Yin, spouse Contact Information [phone] Advance Directives? No Advance Directives on File No History Provided By Patient,Medical Record Has Patient been admitted in last 30 Yes days? Comment Here 11.3-11.5 Prior Living Arrangements House Household Members spouse,children Type of transporation used prior to Drives own vehicle admit Independent with ADL's Yes Is patient alert and oriented? Yes Barriers to Discharge No Discharge Plan Home Transportation Arrangement Spouse POV Referrals Initiated None needed
== END 2023-01-29 14:00 | disposition home or self-care (01) ==
LOC: ED 12:27 → AC 12:28
PROVIDERS: Admitting Provider Internal Medicine; Emergency Provider Emergency Medicine; PCP Student in an Organized Health Care Education/Training Program; Visit Provider Internal Medicine
DX: R42 Dizziness and giddiness (principal); I95.9 Hypotension, unspecified; D50.9 Iron deficiency anemia, unspecified; E11.9 Type 2 diabetes mellitus without complications; Z79.84 Long term (current) use of oral hypoglycemic drugs; I10 Essential (primary) hypertension; F32.A Depression, unspecified
CPT/HCPCS: 36415; 36430; 70551; 71045; 71260; 74177; 80048; 80053; 81001; 82550; 82962; 83540; 83550; 83690; 83735; 84484; 85014; 85018; 85025; 85610; 85730; 86850; 86900; 86901; 87040; 93005; 96360; 96361; 96372; 99284; G0378; P9016; J1650; J3475; Q9967

== ENCOUNTER 2023-03-03 11:33 | Emergency (ER) | payer OTHER, SELFPAY ==
[2023-01-26 12:43] VITALS: BMI 29.0
[2023-03-03 12:03] VITALS: BP 161/84; PULSE 70; RESP 16; TEMP 36.7; O2SAT 99; BMI 29.0
--- NOTE | 2023-03-03 12:07 | DI.RAD.S_ITS ---
PROCEDURE: XR ANKLE LT MIN 3V INDICATIONS: fall 3ft from ladder TECHNIQUE: 3 views of the ankle were acquired. COMPARISON: None. FINDINGS: Bones: No fractures or dislocations. Ankle mortise is normally aligned. No suspicious bony lesions. Soft tissues: No tibiotalar joint effusion. Achilles tendon appears normal. IMPRESSION: No acute bony abnormality or significant effusion. Dictated by: Matthew García M.D. on 03/03/2023 at 12:23 Approved by: Matthew García M.D. on 03/03/2023 at 12:23
[2023-03-03 13:39] VITALS: BP 162/84; PULSE 71; RESP 20; TEMP 37.1; O2SAT 98
--- NOTE | 2023-03-03 14:11 | ED_ITS ---
HPI - Back Pain/Injury <Isela Rios PA-C - Last Filed: 03/03/23 15:52> General Chief Complaint: Back Pain/Injury Stated Complaint: fell of ladder 3ft, L ankle injury Time Seen by Provider: 03/03/23 14:10 Source: patient History of Present Illness HPI Narrative: Patient is a 68-year-old male with history of hypertension, HLD, smoker and he was seen in the ER has a beginning of January. He is presenting today because he fell the last 3 steps done his ladder and injured his left ankle. He reports that he misstepped and stumbled down the last 3 runs. He denies hitting his head or any loss of consciousness. He denies taking any blood thinners but states he is on aspirin. He states he can not take NSAIDs. States he has a history of chronic back pain and has had multiple surgeries with the most recent being 3 years ago. Denies any numbness down his legs or any genital numbness or incontinence. He reports the pain in his back feels similar to his chronic back pain. He is pain on the medial side of his left ankle and on exam, pain in the anterior aspect of proximal tibia. Related Data Home Medications Medication Instructions Recorded Confirmed diphenhydramine 25 2 tab PO BEDTIME PRN Pain (Scale 09/10/18 01/26/23 mg-acetaminophen 500 mg tablet Score 1-3) (Tylenol PM Extra Strength) multivitamin 1 tab PO DAILY 09/10/18 01/26/23 fluoxetine 60 mg tablet 60 mg PO DAILY 12/18/20 01/26/23 olanzapine 20 mg tablet 20 mg PO BEDTIME 12/18/20 01/26/23 Previous Rx's Medication Instructions Recorded acetaminophen 325 mg tablet 650 mg (2 x 325 mg) PO Q6H PRN 01/18/23 Fever/Mild Pain (1-3) #50 tabs aspirin 81 mg tablet,delayed 81 mg PO DAILY #30 tabs 01/18/23 release atorvastatin 20 mg tablet 40 mg (2 x 20 mg) PO BEDTIME #30 01/18/23 tabs hydrocodone 5 mg-acetaminophen 325 1 tab PO Q6H PRN pain #30 tabs 01/18/23 mg tablet lidocaine 5 % topical patch 1 patch topical 0630 #30 ea 01/18/23 melatonin 3 mg tablet 6 mg (2 x 3 mg) PO BEDTIME PRN 01/18/23 Insomnia #60 tabs metformin 1,000 mg tablet 1,000 mg PO BID #60 tabs 01/18/23 nitroglycerin 0.4 mg sublingual 0.4 mg sublingual [id number] PRN 01/18/23 tablet (Nitrostat) Chest Pain #30 tabs ondansetron 4 mg disintegrating 4 mg PO Q4HR PRN NV #30 tabs 01/18/23 tablet pantoprazole 20 mg tablet,delayed 40 mg (2 x 20 mg) PO 0700 #30 tabs 01/18/23 release polyethylene glycol 3350 17 gram 17 gm PO DAILY PRN Constipation 01/18/23 oral powder packet #15 ea prednisone 20 mg tablet 40 mg (2 x 20 mg) PO DAILY #6 tabs 01/18/23 sennosides 8.6 mg tablet (senna) 8.6 mg PO BID PRN Constipation #30 01/18/23 tabs ferrous sulfate 325 mg (65 mg 325 mg PO DAILY #90 tabs 01/29/23 iron) tablet isosorbide mononitrate 30 mg 30 mg PO DAILY #30 tabs 01/29/23 tablet,extended release 24 hr tamsulosin 0.4 mg capsule (Flomax) 0.4 mg PO DAILY #30 caps 01/29/23 Allergies Allergy/AdvReac Type Severity Reaction Status Date / Time NSAIDS (Non-Steroidal AdvReac Mild CAN TAKE, Verified 03/03/23 12:07 Anti-Inflamma BUT TRIES [NSAIDS (NON-STEROIDAL TO AVOID ANTI-INFLAMMA] R/T GASTRIC BYPASS Review of Systems <Isela Rios PA-C - Last Filed: 03/03/23 15:52> Review of Systems Narrative: See HPI Patient History <Isela Rios PA-C - Last Filed: 03/03/23 15:52> Medical History GERD (gastroesophageal reflux disease) HNP (herniated nucleus pulposus), lumbar History of bleeding ulcers Hypertriglyceridemia Non-insulin dependent type 2 diabetes mellitus HTN (hypertension) Nephrolithiasis Degenerative disc disease Surgical History History of vasectomy History of colonoscopy History of cholecystectomy History of gastric bypass History of cervical spinal surgery Status post lumbar surgery Family History Mother No known health problems Father No known health problems Social History household members: spouse and children Smoking Status: Former smoker alcohol intake: current Smoking Status: Former smoker tobacco type: cigarettes alcohol intake frequency: holidays/special occasions only Substance Use Type: does not use Exam <Isela Rios PA-C - Last Filed: 03/03/23 15:52> Initial Vital Signs Initial Vital Signs: Vital Signs Temperature 98.1 F 03/03/23 12:03 Pulse Rate 70 03/03/23 12:03 Respiratory Rate 16 03/03/23 12:03 Blood Pressure 161/84 H 03/03/23 12:03 Pulse Oximetry 99 03/03/23 12:03 Oxygen Delivery Method Room Air 03/03/23 12:03 GENERAL: 68 year old patient appears stated age. Well-developed patient, in no acute distress. HEAD: Atraumatic. Normocephalic. EYES: Pupils equal round No scleral icterus. No injection or drainage. NECK: Trachea midline, supple RESPIRATORY: Speaking comfortably normal tone of voice without any increased work of breathing. EXTREMITIES: No edema or joint tenderness. Tender to palpation over proximal anterior left tibia. Patient is also tender to palpation over left medial ankle, no significant swelling or bruising noted. No tenderness to palpation of metatarsals or toes. No bilateral lower extremity edema present. BACK: Nontender without deformity or crepitance. No midline thoracic or lumbar spinal tenderness. NEURO: AOx3. SKIN: No rash or erythema of visible areas <Edward Saucedo DO - Last Filed: 03/03/23 16:39> Initial Vital Signs Initial Vital Signs: Vital Signs Temperature 98.1 F 03/03/23 12:03 Pulse Rate 70 03/03/23 12:03 Respiratory Rate 16 03/03/23 12:03 Blood Pressure 161/84 H 03/03/23 12:03 Pulse Oximetry 99 03/03/23 12:03 Oxygen Delivery Method Room Air 03/03/23 12:03 Course <Isela Rios PA-C - Last Filed: 03/03/23 15:52> Orders Ordered: ED Orders 03/03/23 12:07 XR ankle LT min 3V Stat 03/03/23 14:18 XR tibia fibula LT 2V Stat Discontinued Medications Acetaminophen (Acetaminophen 325 Mg Tablet) 650 mg PO NOW ONE Stop: 03/03/23 14:19 Last Admin: 03/03/23 14:28 Dose: 650 mg Documented By: RL Vital Signs Vital signs: Vital Signs - 8 hr 03/03/23 12:03 03/03/23 13:39 03/03/23 14:32 Temperature 98.1 F 98.7 F Pulse Rate 70 71 65 Respiratory Rate 16 20 16 Blood Pressure 161/84 H 162/84 H 159/94 H Pulse Oximetry 99 98 100 Oxygen Delivery Method Room Air Room Air Room Air <Edward Saucedo DO - Last Filed: 03/03/23 16:39> Orders Ordered: ED Orders 03/03/23 12:07 XR ankle LT min 3V Stat 03/03/23 14:18 XR tibia fibula LT 2V Stat Discontinued Medications Acetaminophen (Acetaminophen 325 Mg Tablet) 650 mg PO NOW ONE Stop: 03/03/23 14:19 Last Admin: 03/03/23 14:28 Dose: 650 mg Documented By: RL Vital Signs Vital signs: Vital Signs - 8 hr 03/03/23 12:03 03/03/23 13:39 03/03/23 14:32 Temperature 98.1 F 98.7 F Pulse Rate 70 71 65 Respiratory Rate 16 20 16 Blood Pressure 161/84 H 162/84 H 159/94 H Pulse Oximetry 99 98 100 Oxygen Delivery Method Room Air Room Air Room Air MDM - Back Pain/Injury <Isela Rios PA-C - Last Filed: 03/03/23 15:52> Imaging Data XR tib/fib LT: Radiologist's Impression: PROCEDURE: XR TIBIA FIBULA LT 2V INDICATIONS: Pain TECHNIQUE: 2 views of the tibia and fibula were acquired. COMPARISON: None. FINDINGS: Bones: No fractures or dislocations. No suspicious bony lesions. Soft tissues: No suspicious soft tissue calcifications or masses. IMPRESSION: No acute bony abnormality. Dictated by: Matthew García M.D. on 03/03/2023 at 14:44 Approved by: Matthew García M.D. on 03/03/2023 at 14:44 XR Ankle Lft: Radiologist's Impression: PROCEDURE: XR ANKLE LT MIN 3V INDICATIONS: fall 3ft from ladder TECHNIQUE: 3 views of the ankle were acquired. COMPARISON: None. FINDINGS: Bones: No fractures or dislocations. Ankle mortise is normally aligned. No suspicious bony lesions. Soft tissues: No tibiotalar joint effusion. Achilles tendon appears normal. IMPRESSION: No acute bony abnormality or significant effusion. Dictated by: Matthew García M.D. on 03/03/2023 at 12:23 Approved by: Matthew García M.D. on 03/03/2023 at 12:23 [facility] Narrative Medical decision making narrative: Patient is a 68-year-old male presenting for evaluation of left ankle pain after slipping down the last 3 steps of his ladder. He is uncertain how he landed in his ankle, but it has been tender in the left medial aspect. He denies hitting his head or any loss of consciousness and denies taking any anticoagulants. He does note some back pain, but denies landing on his bottom, and he notes he does have a history of chronic back pain with previous surgeries. He denies any lower extremity numbness. X-rays of ankle and tib-fib did not show any evidence of fracture. Patient most likely has a sprain of his left ankle. I recommend an Osorio wrap or a boot for stability. Advised patient to use a walker while having his foot in the boot. Recommend he follow up his primary care provider in the next 2-3 weeks if his symptoms are not improving. He appears stable and safe to go home. He is agreeable with plan of care. Multiple etiologies for patient's symptoms considered including, but not limited to: Left tibia fracture, left ankle fracture, head trauma Imaging reviewed: Reviewed x-rays of left ankle and left tib-fib which did not show any evidence of fracture. Discussed this with patient Patient's symptoms improved over duration of stay with above-stated therapies. Findings and discharge diagnosis discussed with patient/family followed by verbalization of understanding Return precautions discussed with patient/family whom verbalize understanding of diagnosis and plan Discharge Plan Departure Patient Disposition: Home Clinical Impression: Ankle sprain Qualifiers: Encounter type: initial encounter Involved ligament of ankle: unspecified ligament Laterality: left Qualified Code(s): S93.402A - Sprain of unspecified ligament of left ankle, initial encounter Activity Restrictions/Additional Instructions: Thank you for coming in today for your care. You were diagnosed today with an ankle sprain. There was no fracture noted on x-rays of your left ankle or your left lower leg. I recommend that you keep your left ankle elevated and apply ice. You may also take Tylenol as needed for pain. You may wear the boot for the next 2-3 weeks. As we discussed, please use a walker when using the boot to reduce your risk of falls. Please continue follow up with her primary care provider in the next 2-3 weeks if you are not noticing improvement in your ankle. Prescriptions: No Action sennosides [senna] 8.6 mg Tablet 8.6 mg PO BID PRN (Reason: Constipation) Qty: 30 0RF acetaminophen 325 mg Tablet 650 mg PO Q6H PRN (Reason: Fever/Mild Pain (1-3)) Qty: 50 0RF atorvastatin 20 mg Tablet 40 mg PO BEDTIME Qty: 30 0RF polyethylene glycol 3350 17 gram Powder In Packet 17 gm PO DAILY PRN (Reason: Constipation) Qty: 15 0RF hydrocodone-acetaminophen 5-325 mg Tablet 1 tab PO Q6H PRN (Reason: pain) Qty: 30 0RF prednisone 20 mg Tablet 40 mg PO DAILY Qty: 6 0RF melatonin 3 mg Tablet 6 mg PO BEDTIME PRN (Reason: Insomnia) Qty: 60 0RF aspirin 81 mg Tablet,Delayed Release (Dr/Ec) 81 mg PO DAILY Qty: 30 0RF pantoprazole 20 mg Tablet,Delayed Release (Dr/Ec) 40 mg PO 0700 Qty: 30 0RF lidocaine 5 % Adhesive Patch,Medicated 1 patch topical 0630 Qty: 30 0RF nitroglycerin [Nitrostat] 0.4 mg Tablet, Sublingual 0.4 mg sublingual [id number] PRN (Reason: Chest Pain) Qty: 30 0RF ondansetron 4 mg Tablet,Disintegrating 4 mg PO Q4HR PRN (Reason: NV) Qty: 30 0RF metformin 1,000 mg tablet 1,000 mg PO BID Qty: 60 0RF ferrous sulfate 325 mg (65 mg iron) Tablet 325 mg PO DAILY Qty: 90 0RF isosorbide mononitrate 30 mg Tablet Extended Release 24 Hr 30 mg PO DAILY Qty: 30 0RF tamsulosin [Flomax] 0.4 mg Capsule 0.4 mg PO DAILY Qty: 30 0RF multivitamin Tablet 1 tab PO DAILY diphenhydramine-acetaminophen [Tylenol PM Extra Strength] 25-500 mg Tablet 2 tab PO BEDTIME PRN (Reason: Pain (Scale Score 1-3)) olanzapine 20 mg tablet 20 mg PO BEDTIME Patient Comments: take 1 tablet by mouth at bedtime fluoxetine 60 mg tablet 60 mg PO DAILY Patient Comments: take 1 tablet by mouth once daily Referrals: Shin José PA-C [Primary Care Provider] - Stand Alone Forms: Patient Portal/API ED Sign-out <Edwadr Saucedo DO - Last Filed: 03/03/23 16:39> Cosign ED Attending Cosignature Attestation: Dr Saucedo Co-Sign Statement: I was available for consultation during this patient's emergency department visit. This chart is signed by myself for administrative purposes only. I did not have direct contact with this patient during this visit. They were seen independently by the APC.
--- NOTE | 2023-03-03 14:18 | DI.RAD.S_ITS ---
PROCEDURE: XR TIBIA FIBULA LT 2V INDICATIONS: Pain TECHNIQUE: 2 views of the tibia and fibula were acquired. COMPARISON: None. FINDINGS: Bones: No fractures or dislocations. No suspicious bony lesions. Soft tissues: No suspicious soft tissue calcifications or masses. IMPRESSION: No acute bony abnormality. Dictated by: Matthew García M.D. on 03/03/2023 at 14:44 Approved by: Matthew García M.D. on 03/03/2023 at 14:44
[2023-03-03] MEDS: ACETAMINOPHEN 325 MG TABLET 650 MG PO (14:28)
[2023-03-03 14:32] VITALS: BP 159/94; PULSE 65; RESP 16; O2SAT 100
== END 2023-03-03 15:18 | disposition home or self-care (01) ==
PROVIDERS: Emergency Provider Physician Assistant; PCP Student in an Organized Health Care Education/Training Program
DX: S93.402A Sprain of unspecified ligament of left ankle, initial encounter (principal); W11.XXXA Fall on and from ladder, initial encounter
CPT/HCPCS: 73590; 73610; 99283

== ENCOUNTER 2023-07-16 11:00 | Emergency (ER) | payer MEDICARE, OTHER, SELFPAY ==
[2023-01-26 12:43] VITALS: BMI 29.0
[2023-07-16] VITALS (18 sets, daily range): BP systolic 94–140; BP diastolic 51–74; PULSE 55–72; RESP 12–27; TEMP 36.6; O2SAT 97–100; BMI 30.7
--- NOTE | 2023-07-16 11:06 | DI.RAD.S_ITS ---
PROCEDURE: XR CHEST 1V INDICATIONS: chest pain TECHNIQUE: One view of the chest was acquired. COMPARISON: [facility], CR, XR CHEST 1V, 01/26/2023, 10:01. [facility], CR, XR CHEST 1V, 01/16/2023, 10:36. FINDINGS: Surgical changes and devices: ACDF of the lower cervical spine. Lungs and pleura: Lungs are clear. No pleural effusions or pneumothorax. Mediastinum: Mediastinal contours appear normal. Heart size is normal. Bones and chest wall: No suspicious bony lesions. Overlying soft tissues appear unremarkable. IMPRESSION: No acute cardiopulmonary abnormality is seen. Dictated by: Matthew García M.D. on 07/16/2023 at 11:59 Approved by: Matthew García M.D. on 07/16/2023 at 11:59
[2023-07-16 11:19] LABS: Add Manual Diff / Slide Review NO; Basophils Absolute Auto 0 /uL (0-100); Basophils Percent Auto 0.3 % (0-2); Eosinophils Absolute Auto 0 /uL (0-450); Eosinophils Percent Auto 0.3 % (2-4); Hematocrit 32.4 % (41-53); Hemoglobin 10.6 g/dL (13.5-17.5); Lymphocytes Absolute Auto 1700 /uL (1100-4500); Lymphocytes Percent Auto 20.3 % (25-40); Mean Corpuscular HGB Conc 32.9 % (30-36); Mean Corpuscular Hemoglobin 29.3 PG (26-34); Mean Corpuscular Volume 89.2 fL (80-100); Monocytes Absolute Auto 500 /uL (0-900); Monocytes Percent Auto 5.6 % (3-14); Neutrophils Absolute Auto 6100 /uL (1500-7000); Neutrophils Percent Auto 73.5 % (50-75); Platelet Count 317 X10^3/uL (150-400); Red Blood Cell Count 3.63 X10^6/uL (4.5-5.9); White Blood Cell Count 8.3 X10^3/uL (4.5-11.0)
[2023-07-16 11:26] LABS: Prothrombin Time 11.9 SECONDS (9.4-12.5)
[2023-07-16 11:29] LABS: PTT Partial Thromboplastin Tim 33 SECONDS (25.1-36.5)
[2023-07-16 11:50] LABS: BUN Creatinine Ratio 28.6 (6-22); Blood Urea Nitrogen 32 mg/dL (9-20); Calcium 9.2 mg/dL (8.4-10.2); Carbon Dioxide 19 mmol/L (22-32); Chloride 110 mmol/L (98-107); Creatine Kinase 66 U/L (55-170); Estimated Glomerular Filt Rate > 60 mL/min (>60); Glucose 163 mg/dL (80-110); HEMOLYSIS < 15 (0-50); Magnesium 1.8 mg/dL (1.6-2.3); Potassium 4.5 mmol/L (3.4-5.1); Sodium 140 mmol/L (137-145); Troponin I < 0.012 ng/mL (0.01-0.034)
[2023-07-16 11:51] LABS: Alanine Aminotransferase 17 IU/L (<50); Albumin Globulin Ratio 1.4 (1.0-2.8); Alkaline Phosphatase 103 U/L (38-126); Aspartate Aminotransferase 21 IU/L (17-59); Bilirubin Total 0.4 mg/dL (0.2-1.3); Globulin 2.9 g/dL (1.7-4.1); Lipase 31 U/L (23-300); Total Protein 6.9 g/dL (6.3-8.2)
--- NOTE | 2023-07-16 12:18 | DI.CT.S_ITS ---
PROCEDURE: CT CHEST ABD PEL W CON INDICATIONS: epigastric/upper abd/chest pain TECHNIQUE: After the administration of intravenous contrast, 5 mm thick sections acquired from the lung apices to the symphysis. 5 mm coronal and sagittal reformats were performed, with additional 7 mm MIP reformats through the lungs. For radiation dose reduction, the following was used: automated exposure control, adjustment of mA and/or kV according to patient size. COMPARISON: [facility], CT, CT CHEST ABD PEL W CON, 01/26/2023, 11:21. FINDINGS: Image quality: Excellent. CHEST: Lower Neck: No enlarged lymph nodes. Thyroid: No thyroid nodules which require sonographic follow up, per consensus guidelines. Axillae: No enlarged lymph nodes. Chest Wall: Unremarkable. Lungs and Pleura: No pneumothorax or pleural effusions. No consolidation or suspicious nodules. Heart: Heart size is normal. No pericardial effusion. Three-vessel coronary calcifications, marked for age. Thoracic Vessels: The aorta and pulmonary arteries demonstrate normal size. Mediastinum and Donna: No enlarged lymph nodes. Esophagus: No wall thickening. Small hiatal hernia. ABDOMEN: Liver: No solid mass. Gallbladder: Absent. Biliary ducts: No biliary dilation. Pancreas: No ductal dilation. Spleen: Size is within normal limits. Adrenal Glands: No adrenal nodules. Kidneys and Ureters: No hydronephrosis. No solid mass. No complex renal cystic lesion which requires follow up. 1.1 centimeter nonobstructing nephrolithiasis in the inferior calyx of the right kidney (112[address]oun[address] unit). Stomach and Bowel: Prior gastric bypass surgery. Normal appendix. No bowel distention. Colonic diverticulosis without evidence of diverticulitis. Peritoneum: No abnormal intraperitoneal fluid. No free air. Ventral Wall: Wide-mouth infraumbilical hernia containing loops of nondistended small bowel. The neck measures 3.4 centimeters and the sac measures 4.3 x 5.1 centimeters. Abdominal Nodes: No retroperitoneal or mesenteric adenopathy by size criteria. Vessels: Aorta and inferior vena cava are normal in size. PELVIS: Pelvic Organs: Unremarkable. Bladder: No bladder wall thickening, accounting for underdistention. Pelvic Nodes: No enlarged lymph nodes. Miscellaneous: No inguinal hernias are seen. Bones: No aggressive osseous abnormality. Surgical fusion of the lower lumbar spine period degenerative disc disease. Diffuse idiopathic skeletal hyperostosis. IMPRESSION: No findings to explain the patient's epigastric pain. Gastric bypass without obstruction. Cholecystectomy. Normal appendix. Colonic diverticulosis without evidence of diverticulitis. Nonobstructing 1.1 centimeter stone in the inferior calyx of the right kidney. Wide mouth infraumbilical hernia containing nonobstructed loops of small bowel. Dictated by: Matthew García M.D. on 07/16/2023 at 13:58 Approved by: Matthew García M.D. on 07/16/2023 at 14:02
--- NOTE | 2023-07-16 12:19 | ED_ITS ---
HPI - Chest Pain General Chief Complaint: Chest Pain Stated Complaint: Chest pain Time Seen by Provider: 07/16/23 12:04 Source: patient, EMS, RN notes reviewed and old records reviewed Mode of arrival: EMS Limitations: no limitations History of Present Illness HPI narrative: 68-year-old male with a history significant for past gastric ulcer, hypertension, dyslipidemia, diabetes, depression, kidney stones, anemia who presents with complaint of chest pain. He states kind of epigastric and substernal but also into the abdomen. Denies radiation elsewhere. States it started about 2-1/2 hours ago while he was driving his car. He had a similar event in the past was seen here in the emergency department at that time and has not had any episodes in between. States he felt a little short of breath a little sweaty denies any nausea or vomiting felt a little lightheaded denies any syncope. No new swelling in his extremities. Patient is on an aspirin 81 mg daily, Micardis and Glucophage as his only medications. Has a history gastric bypass in 2003 and describes his stomach eating his liver and requiring surgery in the past. Set carpal tunnel, back surgery, trigger finger surgery as well as neck surgery in the past. Does not take NSAIDs secondary to prior ulcers. Quit smoking in January, quit alcohol 2-1/2 years ago no recreational drugs. Primary care is Dr. José. Cardiology is Dr. Santiago. He did receive aspirin EN route as well as nitro sublingual without any change in symptoms. Related Data Home Medications Medication Instructions Recorded Confirmed diphenhydramine 25 2 tab PO BEDTIME PRN Pain (Scale 09/10/18 01/26/23 mg-acetaminophen 500 mg tablet Score 1-3) (Tylenol PM Extra Strength) multivitamin 1 tab PO DAILY 09/10/18 01/26/23 fluoxetine 60 mg tablet 60 mg PO DAILY 12/18/20 01/26/23 olanzapine 20 mg tablet 20 mg PO BEDTIME 12/18/20 01/26/23 Previous Rx's Medication Instructions Recorded acetaminophen 325 mg tablet 650 mg (2 x 325 mg) PO Q6H PRN 01/18/23 Fever/Mild Pain (1-3) #50 tabs aspirin 81 mg tablet,delayed 81 mg PO DAILY #30 tabs 01/18/23 release atorvastatin 20 mg tablet 40 mg (2 x 20 mg) PO BEDTIME #30 01/18/23 tabs hydrocodone 5 mg-acetaminophen 325 1 tab PO Q6H PRN pain #30 tabs 01/18/23 mg tablet lidocaine 5 % topical patch 1 patch topical 0630 #30 ea 01/18/23 melatonin 3 mg tablet 6 mg (2 x 3 mg) PO BEDTIME PRN 01/18/23 Insomnia #60 tabs metformin 1,000 mg tablet 1,000 mg PO BID #60 tabs 01/18/23 nitroglycerin 0.4 mg sublingual 0.4 mg sublingual [id number] PRN 01/18/23 tablet (Nitrostat) Chest Pain #30 tabs ondansetron 4 mg disintegrating 4 mg PO Q4HR PRN NV #30 tabs 01/18/23 tablet pantoprazole 20 mg tablet,delayed 40 mg (2 x 20 mg) PO 0700 #30 tabs 01/18/23 release polyethylene glycol 3350 17 gram 17 gm PO DAILY PRN Constipation 01/18/23 oral powder packet #15 ea prednisone 20 mg tablet 40 mg (2 x 20 mg) PO DAILY #6 tabs 01/18/23 sennosides 8.6 mg tablet (senna) 8.6 mg PO BID PRN Constipation #30 01/18/23 tabs ferrous sulfate 325 mg (65 mg 325 mg PO DAILY #90 tabs 01/29/23 iron) tablet isosorbide mononitrate 30 mg 30 mg PO DAILY #30 tabs 01/29/23 tablet,extended release 24 hr tamsulosin 0.4 mg capsule (Flomax) 0.4 mg PO DAILY #30 caps 01/29/23 Allergies Allergy/AdvReac Type Severity Reaction Status Date / Time NSAIDS (Non-Steroidal AdvReac Mild CAN TAKE, Verified 07/16/23 11:02 Anti-Inflamma BUT TRIES [NSAIDS (NON-STEROIDAL TO AVOID ANTI-INFLAMMA] R/T GASTRIC BYPASS Patient History Medical History GERD (gastroesophageal reflux disease) HNP (herniated nucleus pulposus), lumbar History of bleeding ulcers Hypertriglyceridemia Non-insulin dependent type 2 diabetes mellitus HTN (hypertension) Nephrolithiasis Degenerative disc disease Surgical History History of vasectomy History of colonoscopy History of cholecystectomy History of gastric bypass History of cervical spinal surgery Status post lumbar surgery Family History Mother No known health problems Father No known health problems Social History household members: spouse and children Smoking Status: Former smoker alcohol intake: current Smoking Status: Former smoker tobacco type: cigarettes alcohol intake frequency: holidays/special occasions only Substance Use Type: does not use Exam Initial Vital Signs Initial Vital Signs: Vital Signs Temperature 97.8 F 07/16/23 11:02 Pulse Rate 72 07/16/23 11:02 Respiratory Rate 16 07/16/23 11:02 Blood Pressure 110/61 07/16/23 11:02 Pulse Oximetry 97 07/16/23 11:02 Oxygen Delivery Method Room Air 07/16/23 11:02 Course Orders Ordered: ED Orders 07/16/23 11:06 XR chest 1V Stat EKG-12 Lead Stat 07/16/23 11:11 Complete Blood Count AUTO DIFF Stat Comprehensive Metabolic Panel Stat Lipase Stat Magnesium Stat PTT Partial Thromboplastin Neo Stat Prothrombin Time INR Stat Troponin & CK Cardiac Panel Stat 07/16/23 12:18 CT chest abd pel w con Stat 07/16/23 13:10 Trop I [Troponin I] Stat 07/16/23 13:25 EKG-12 Lead Stat Discontinued Medications Al Hydrox/Mg Hydrox/Simethicone 20 ml/ Lidocaine HCl 15 ml 0 ml PO NOW ONE Stop: 07/16/23 14:36 Last Admin: 07/16/23 14:38 Dose: 35 ml Documented By: KARO Sodium Chloride (Normal Saline 0.9%) 1,000 mls @ 125 mls/hr IV CONT DEANNE Last Infusion: 07/16/23 14:56 Dose: 125 mls/hr Documented By: Admin: 07/16/23 12:30 Dose: 125 mls/hr Documented By: ALONA Morphine Sulfate (Morphine 4 Mg/Ml Inj) 4 mg IV NOW ONE Stop: 07/16/23 12:06 Last Admin: 07/16/23 12:27 Dose: 4 mg Documented By: ALONA Vital Signs Vital signs: Vital Signs - 8 hr 07/16/23 11:18 07/16/23 11:18 07/16/23 11:30 Pulse Rate 63 62 Respiratory Rate 18 18 Blood Pressure 98/56 L Pulse Oximetry 98 97 07/16/23 11:30 07/16/23 11:45 07/16/23 11:45 Pulse Rate 60 Respiratory Rate 23 Blood Pressure 94/51 L 95/51 L Pulse Oximetry 98 07/16/23 11:47 07/16/23 11:47 07/16/23 12:00 Pulse Rate 59 L 59 L Respiratory Rate 16 17 Blood Pressure 96/53 L Pulse Oximetry 98 99 07/16/23 12:00 07/16/23 12:15 07/16/23 12:15 Pulse Rate 60 Respiratory Rate 27 H Blood Pressure 96/52 L 116/59 L Pulse Oximetry 98 07/16/23 12:35 07/16/23 12:35 07/16/23 12:45 Pulse Rate 58 L 55 L Respiratory Rate 14 17 Blood Pressure 128/60 Pulse Oximetry 99 99 07/16/23 12:45 07/16/23 13:00 07/16/23 13:00 Pulse Rate 56 L Respiratory Rate 14 Blood Pressure 106/58 L 109/59 L Pulse Oximetry 98 07/16/23 13:15 07/16/23 13:15 07/16/23 13:30 Pulse Rate 56 L 57 L Respiratory Rate 15 15 Blood Pressure 115/64 Pulse Oximetry 99 98 07/16/23 13:30 07/16/23 13:45 07/16/23 13:45 Pulse Rate 57 L Respiratory Rate 15 Blood Pressure 115/63 119/64 Pulse Oximetry 99 07/16/23 14:00 07/16/23 14:00 07/16/23 14:15 Pulse Rate 56 L 58 L Respiratory Rate 19 12 Blood Pressure 121/66 Pulse Oximetry 99 99 07/16/23 14:15 07/16/23 14:30 07/16/23 14:30 Pulse Rate 58 L Respiratory Rate 15 Blood Pressure 128/67 137/72 Pulse Oximetry 100 07/16/23 14:45 07/16/23 14:45 Pulse Rate 57 L Respiratory Rate 24 Blood Pressure 140/74 Pulse Oximetry 100 MDM - Chest Pain Lab Data 07/16/23 11:11 07/16/23 11:11 Labs: Lab Results 05/02/24 05/02/24 Range/Units 11:11 13:10 WBC 8.3 (4.5-11.0) X10^3/uL RBC 3.63 L (4.5-5.9) X10^6/uL Hgb 10.6 L (13.5-17.5) g/dL Hct 32.4 L (41-53) % MCV 89.2 (80-100) fL MCH 29.3 (26-34) PG MCHC 32.9 (30-36) % RDW 16.0 H (11.6-14.8) % Plt Count 317 (150-400) X10^3/uL Neut % (Auto) 73.5 (50-75) % Lymph % (Auto) 20.3 L (25-40) % [place] % (Auto) 5.6 (3-14) % Eos % (Auto) 0.3 L (2-4) % Baso % (Auto) 0.3 (0-2) % Neut # (Auto) 6100 (3669-7305) /uL Lymph # (Auto) 1700 (3659-6253) /uL [place] # (Auto) 500 (0-900) /uL Eos # (Auto) 0 (0-450) /uL Baso # (Auto) 0 (0-100) /uL PT 11.9 (9.4-12.5) SECONDS INR 1.0 (0.9-1.3) APTT 33 (25.1-36.5) SECONDS Sodium 140 (137-145) mmol/L Potassium 4.5 (3.4-5.1) mmol/L Chloride 110 H (98-107) mmol/L Carbon Dioxide 19 L (22-32) mmol/L BUN 32 H (9-20) mg/dL Creatinine 1.12 (0.66-1.25) mg/dL Estimated GFR > 60 (>60) mL/min BUN/Creatinine Ratio 28.6 H (6-22) Glucose 163 H (80-110) mg/dL Calcium 9.2 (8.4-10.2) mg/dL Magnesium 1.8 (1.6-2.3) mg/dL Total Bilirubin 0.4 (0.2-1.3) mg/dL AST 21 (17-59) IU/L ALT 17 (<50) IU/L Alkaline Phosphatase 103 (38-126) U/L Total Creatine Kinase 66 (55-170) U/L Troponin I < 0.012 < 0.012 (0.01-0.034) ng/mL Total Protein 6.9 (6.3-8.2) g/dL Albumin 4.0 (3.5-5.0) g/dL Globulin 2.9 (1.7-4.1) g/dL Albumin/Globulin Ratio 1.4 (1.0-2.8) Lipase 31 (23-300) U/L Imaging Data Chest x-ray: Radiologist's Impression: Kristian Yin??68??M??1955 ? Allergy/Adv: NSAIDS (Non-Steroidal Anti-Inflamma (More??) Close Chest X-Ray (Signed) Matthew García - 07/16/23 Tibia/Fibula X-Ray (Signed) Matthew García - 03/03/23 Ankle X-Ray (Signed) Matthew García - 03/03/23 Brain MRI (Signed) Conner Mendoza - 01/27/23 Chest/Abdomen/Pelvis CT (Signed) Brenda Crabtree - 01/26/23 Chest X-Ray (Signed) Andrzej Gutiérrez - 01/26/23 Echocardiogram Ultrasound (Signed) Nirmala Fofana - 01/16/23 Telemetry Strips 01/16/23 Chest X-Ray (Signed) Micki Metzger - 01/16/23 Chest CTA (Signed) Brenda Crabtree - 08/28/22 Chest X-Ray (Signed) Conner Mendoza - 08/28/[address] (Signed) Christiano Tidwell - 08/01/22 Chest X-Ray (Signed) Matthew García - 08/01/[address] (Signed) Allie Almanzar - 05/27/22 Chest/Abdomen/Pelvis CT (Signed) Brenda Crabtree - 05/27/[address] (Signed) Allie Almanzar - 05/27/22 Chest X-Ray (Signed) Micki Metzger - 10/31/21 Abdomen/Pelvis CT (Signed) Brayan Diaz - 09/16/21 Telemetry Strips 09/14/21 Chest X-Ray (Signed) Obey Tejeda - 09/14/21 Chest CTA (Signed) Brooke Livingston - 09/12/[address] (Signed) Brooke Livingston - 09/12/21 Chest X-Ray (Signed) Brooke Livingston - 09/12/21 Radiology Report (Cancelled) Margaret Santiago - 12/19/20 Myocardial Perfusion Scan Nuc Med (Signed) VishalmacyTere gutierrezlou - 12/19/20 Echocardiogram Ultrasound (Signed) Andrea Moreno - 12/18/20 Telemetry Strips 12/18/20 Chest X-Ray (Signed) Brenda Crabtree - 12/18/[address] (Signed) Spenser Chowdhury - 03/23/20 Telemetry Strips 04/26/[address] (Signed) Nando Hwang - 09/18/[address] (Signed) Nando Hwang - 09/18/[address] (Signed) Nando Hwang - 09/18/[address] (Signed) Nando Hwang - 09/18/[address] (Signed) Allie Almanzar - 09/10/[address] (Signed) Allie Almanzar - 09/10/[address] (Signed) Allie Almanzar - 09/10/18 Hand X-Ray (Signed) Alex Romero - 09/10/18 Outside DI 09/11/15 Launch?[place] [address] XRay Report Signed Patient: Kristian Yin MR#: [id number] : 1955 Acct:[id number] Age/Sex: 68 / M Date of Service: 07/16/23 Loc: ED Accession Number: [id number] Procedure: XR chest 1V Ordering Provider: Erin Rod D.O. PROCEDURE: XR CHEST 1V INDICATIONS: chest pain TECHNIQUE: One view of the chest was acquired. COMPARISON: [facility], CR, XR CHEST 1V, 01/26/2023, 10:01. [facility], CR, XR CHEST 1V, 01/16/2023, 10:36. FINDINGS: Surgical changes and devices: ACDF of the lower cervical spine. Lungs and pleura: Lungs are clear. No pleural effusions or pneumothorax. Mediastinum: Mediastinal contours appear normal. Heart size is normal. Bones and chest wall: No suspicious bony lesions. Overlying soft tissues appear unremarkable. IMPRESSION: No acute cardiopulmonary abnormality is seen. Dictated by: Matthew García M.D. on 07/16/2023 at 11:59 Approved by: Matthew García M.D. on 07/16/2023 at 11:59 CT chest/abd/pelvis: Radiologist's Impression: [address] [address] XRay Report? Signed Patient: Freda Viramontes MR#: [id number] : 10/09/1945 Acct:[id number] Age/Sex: 77 / M Date of Service: 07/16/23 Loc: ED Accession Number: [id number]? ? Procedure: XR chest 1V Ordering Provider: Erin Rod D.O. PROCEDURE:? XR CHEST 1V ? INDICATIONS:? chest pain ? TECHNIQUE:? One view of the chest was acquired.?? ? COMPARISON:? [facility], CR, XR CHEST 1V, 11/13/2021, 13:22. ? FINDINGS:?? ? Surgical changes and devices:? None.?? ? Lungs and pleura:? Lungs are clear.? No pleural effusions or pneumothorax.?? ? Mediastinum:? Mediastinal contours appear normal.? Heart size is normal.?? ? Bones and chest wall:? No suspicious bony lesions.? Overlying soft tissues appear? unremarkable.? IMPRESSION:?? ? No acute cardiopulmonary abnormality is seen.? Dictated by: Kenyon Ryder M.D. on 07/16/2023 at 12:19? ? ? Approved by: Kenyon Ryder M.D. on 07/16/2023 at 12:19? ? ECG Data Attestation: I personally reviewed and interpreted this ECG as follows: Interpretation: Sinus bradycardia with incomplete right bundle, left anterior fascicular block. Rate of 59 IN 160 QRS of 92 QTC [address] No acute [address] elevation depression patient has RSR in V2. Patient has prior from 02/01/2023 shows nonspecific change. EKG 2. Shows sinus bradycardia rate of 56 IN 166 QRS of 94 QTC 391, no acute ST elevation depression noted. MDM Narrative Medical decision making narrative: 68-year-old male presents with complaint of chest pain but also abdominal pain that is epigastric in nature he is little bit tender on examination. Patient does have a history gastric bypass and ulcers, patient's EKG is negative initial troponin is negative. Labs show white count 8.3 hemoglobin 10 platelets of 317 patient's hemoglobin appears improved from priors. Coags are negative, BUN 32 chloride 110 CO2 is 19 with a sodium of 140 potassium of 4 5 glucose of 163 LFTs are negative. Troponin is negative. Troponin was repeated does negative Chest x-ray is negative EKG shows some very minimal spit nonspecific change. Was repeated no acute ST changes Patient's bit tender on his abdomen on examination and does have history of ulcers so CT abdomen pelvis was obtained to evaluate for potential perforation. CT shows small hiatal hernia three-vessel coronary calcification marked for age, 1.1 cm nonobstructing kidney stone inferior calyx right kidney wide mouth infraumbilical hernia with loops of nondistended small bowel diverticulosis. Discussed with patient in his possibility of cardiac source but he is also quite tender in his epigastrium he has had known ulcers seen on EGD in the past. Had Gi cocktail with some improvement as well. Patient would like to return home and follow up. Discharge Plan Departure Patient Disposition: Home Clinical Impression: Chest pain, Abdominal pain, epigastric, Hernia Instructions: DI for Chest Pain Activity Restrictions/Additional Instructions: Follow up with recheck I recommend following with your physician as well as Cardiology. Contacts included below. Your imaging shows calcification in the coronary arteries and that you have a hernia below the umbilicus or belly button. It is also noted that you have a stone in the right kidney. Continue your home medications as prescribed. Please return for new chest pain, shortness of breath, lightheadedness or passing out, new swelling of extremities or other new or concerning changes Prescriptions: No Action sennosides [senna] 8.6 mg Tablet 8.6 mg PO BID PRN (Reason: Constipation) Qty: 30 0RF acetaminophen 325 mg Tablet 650 mg PO Q6H PRN (Reason: Fever/Mild Pain (1-3)) Qty: 50 0RF atorvastatin 20 mg Tablet 40 mg PO BEDTIME Qty: 30 0RF polyethylene glycol 3350 17 gram Powder In Packet 17 gm PO DAILY PRN (Reason: Constipation) Qty: 15 0RF hydrocodone-acetaminophen 5-325 mg Tablet 1 tab PO Q6H PRN (Reason: pain) Qty: 30 0RF prednisone 20 mg Tablet 40 mg PO DAILY Qty: 6 0RF melatonin 3 mg Tablet 6 mg PO BEDTIME PRN (Reason: Insomnia) Qty: 60 0RF aspirin 81 mg Tablet,Delayed Release (Dr/Ec) 81 mg PO DAILY Qty: 30 0RF pantoprazole 20 mg Tablet,Delayed Release (Dr/Ec) 40 mg PO 0700 Qty: 30 0RF lidocaine 5 % Adhesive Patch,Medicated 1 patch topical 0630 Qty: 30 0RF nitroglycerin [Nitrostat] 0.4 mg Tablet, Sublingual 0.4 mg sublingual [id number] PRN (Reason: Chest Pain) Qty: 30 0RF ondansetron 4 mg Tablet,Disintegrating 4 mg PO Q4HR PRN (Reason: NV) Qty: 30 0RF metformin 1,000 mg tablet 1,000 mg PO BID Qty: 60 0RF ferrous sulfate 325 mg (65 mg iron) Tablet 325 mg PO DAILY Qty: 90 0RF isosorbide mononitrate 30 mg Tablet Extended Release 24 Hr 30 mg PO DAILY Qty: 30 0RF tamsulosin [Flomax] 0.4 mg Capsule 0.4 mg PO DAILY Qty: 30 0RF multivitamin Tablet 1 tab PO DAILY diphenhydramine-acetaminophen [Tylenol PM Extra Strength] 25-500 mg Tablet 2 tab PO BEDTIME PRN (Reason: Pain (Scale Score 1-3)) olanzapine 20 mg tablet 20 mg PO BEDTIME Patient Comments: take 1 tablet by mouth at bedtime fluoxetine 60 mg tablet 60 mg PO DAILY Patient Comments: take 1 tablet by mouth once daily Referrals: Shin José PA-C [Primary Care Provider] - Elliott Chandler MD [Physician] - Stand Alone Forms: Patient Portal/API
[2023-07-16] MEDS: MORPHINE 4 MG/ML INJ IV (12:27)
[2023-07-16] MEDS: SODIUM CHLORIDE 0.9% 1,000 ML 125 ML IV (12:30)
[2023-07-16 13:40] LABS: Troponin I < 0.012 ng/mL (0.01-0.034)
[2023-07-16] MEDS: MAG HYDROX/ALUMINUM/SIMETH SUS 20 ML, LIDOCAINE VISCOUS 2% 15 ML PO (14:38)
== END 2023-07-16 14:58 | disposition home or self-care (01) ==
PROVIDERS: Emergency Provider Emergency Medicine; PCP Student in an Organized Health Care Education/Training Program
DX: R07.9 Chest pain, unspecified (principal); R10.13 Epigastric pain; K44.9 Diaphragmatic hernia without obstruction or gangrene; Z79.899 Other long term (current) drug therapy
CPT/HCPCS: 36415; 71045; 71260; 74177; 80053; 82550; 83690; 83735; 84484; 85025; 85610; 85730; 93005; 96361; 96374; 99284; J2270; Q9967

== ENCOUNTER 2023-09-15 10:50 | Observation (INO) | payer MEDICARE, OTHER, SELFPAY ==
[2023-01-26 12:43] VITALS: BMI 29.0
[2023-09-15] VITALS (30 sets, daily range): BP systolic 88–166; BP diastolic 47–72; PULSE 60–82; RESP 12–23; TEMP 36.2; O2SAT 95–99; BMI 30.7
--- NOTE | 2023-09-15 10:55 | EKG_ITS ---
[address] [address] Test Date: 2023-09-15 Pat Name: Kristian Yin Department: Room: Gender: Male Hand Bender: NICOLASA : 1955 Requested By: Order Number: [id number] Reading MD: Eddie Webb Measurements Intervals Stephan Rate: 75 P: 84 OK: 154 QRS: -56 QRSD: 96 T: 65 QT: 370 QTc: 413 Interpretive Statements Normal sinus rhythm Left axis deviation Pulmonary disease pattern Incomplete right bundle branch block Electronically Signed On 09-15-2023 15:42:02 PDT by Eddie Webb
--- NOTE | 2023-09-15 10:56 | ED_ITS ---
HPI - General Adult General Chief complaint: Chest Pain Stated complaint: Chest Pain h/o [place] Time Seen by Provider: 09/15/23 10:51 History of Present Illness HPI narrative: 68-year-old gentleman with coronary artery disease, former smoker, former alcohol use, depression, hyperlipidemia, diabetes, reflux, and chronic anemia who presents here with an hour of acute onset central chest pain described as 9/10 associated with mild diaphoresis, tachypnea. No complaints of palpitation. Related Data Home Medications Medication Instructions Recorded Confirmed multivitamin 1 tab PO DAILY 09/10/18 09/15/23 fluoxetine 60 mg tablet 60 mg PO DAILY 12/18/20 09/15/23 olanzapine 20 mg tablet 20 mg PO BEDTIME 12/18/20 09/15/23 metformin 1,000 mg tablet 500 mg PO BID 09/15/23 09/15/23 omeprazole 20 mg capsule,delayed 20 mg PO DAILY 09/15/23 09/15/23 release telmisartan 80 1 tab PO DAILY 09/15/23 09/15/23 mg-hydrochlorothiazide 25 mg tablet Previous Rx's Medication Instructions Recorded acetaminophen 325 mg tablet 650 mg (2 x 325 mg) PO Q6H PRN 01/18/23 Fever/Mild Pain (1-3) #50 tabs nitroglycerin 0.4 mg sublingual 0.4 mg sublingual [id number] PRN 01/18/23 tablet (Nitrostat) Chest Pain #30 tabs polyethylene glycol 3350 17 gram 17 gm PO DAILY PRN Constipation 01/18/23 oral powder packet #15 ea isosorbide mononitrate 30 mg 30 mg PO DAILY #30 tabs 01/29/23 tablet,extended release 24 hr Allergies Allergy/AdvReac Type Severity Reaction Status Date / Time NSAIDS (Non-Steroidal AdvReac Mild CAN TAKE, Verified 07/16/23 11:02 Anti-Inflamma BUT TRIES [NSAIDS (NON-STEROIDAL TO AVOID ANTI-INFLAMMA] R/T GASTRIC BYPASS Review of Systems Review of Systems Narrative: Pertinent positive and negative findings as per HPI Patient History Medical History GERD (gastroesophageal reflux disease) HNP (herniated nucleus pulposus), lumbar History of bleeding ulcers Hypertriglyceridemia Non-insulin dependent type 2 diabetes mellitus HTN (hypertension) Nephrolithiasis Degenerative disc disease Surgical History History of vasectomy History of colonoscopy History of cholecystectomy History of gastric bypass History of cervical spinal surgery Status post lumbar surgery Family History Mother No known health problems Father No known health problems Social History household members: spouse and children Smoking Status: Former smoker alcohol intake: former Smoking Status: Former smoker tobacco type: cigarettes alcohol intake frequency: holidays/special occasions only Substance Use Type: does not use Exam Initial Vital Signs Initial Vital Signs: Vital Signs Pulse Rate 78 09/15/23 10:53 Respiratory Rate 18 09/15/23 10:53 Blood Pressure 93/59 L 09/15/23 10:53 Pulse Oximetry 98 09/15/23 10:53 Oxygen Delivery Method Room Air 09/15/23 10:53 General: Chronically ill-appearing gentleman, slightly pale, mildly diaphoretic, tachypneic and complaining of 9/10 chest pain HEENT: Moist mucous membranes, normal sclera with reactive pupils, Neck: No JVD, supple Respiratory: Lungs are clear to auscultation, no wheezing no rales no rhonchi. Full and symmetrical air movement Cardiac: Regular rate and rhythm no murmurs no bruits Abdomen: Soft, nontender, good bowel tones, no flank pain Skin: Warm and dry, no rashes Neurologic: Grossly neurologically intact with no obvious asymmetries or abnormalities Extremities: No trauma, well perfused Psych: Cooperative, appropriate insight and affect Course Orders Ordered: ED Orders 09/15/23 10:45 Complete Blood Count AUTO DIFF Stat Comprehensive Metabolic Panel Stat D Dimer Stat Lipase Stat NT-proBNP (BNP-Adult 18+) Stat Troponin & CK Cardiac Panel Stat 09/15/23 10:55 EKG-12 Lead Routine 09/15/23 11:01 XR chest 1V Stat 09/15/23 13:05 Trop I [Troponin I] Stat 09/15/23 15:14 Urinalysis and Microscopic Stat Urine Culture Stat Acetaminophen (Acetaminophen 325 Mg Tablet) 650 mg PO Q6H PRN PRN Reason: Fever/Mild Pain (1-3) Last Admin: 09/15/23 17:50 Dose: 650 mg Documented By: ANA Diclofenac Sodium (Diclofenac 1% Gel 100 Gm) 1 applic TOP QID [facility] Last Admin: 09/15/23 17:51 Dose: 1 applic Documented By: ANA Naloxone HCl (Naloxone 0.4 Mg/Ml Vial) 0.2 mg IV Q2MIN PRN PRN Reason: Opiate Reversal Ondansetron HCl (Ondansetron 4 Mg/2 Ml Inj) 4 mg IV Q8HR PRN PRN Reason: Nausea And Vomiting Tramadol HCl (Tramadol 50 Mg Tablet) 50 mg PO TID PRN PRN Reason: Pain, Moderate (4-6) Discontinued Medications Diclofenac Sodium (Diclofenac 1% Gel 100 Gm) 1 applic TOP QID [facility] Last Admin: 09/15/23 17:32 Dose: Not Given Documented By: ANA Hydromorphone HCl (Hydromorphone 1 Mg Inj) 1 mg IV NOW ONE Stop: 09/15/23 13:16 Last Admin: 09/15/23 13:19 Dose: 1 mg Documented By: CARLOS Hydromorphone HCl (Hydromorphone 0.5 Mg Inj) 0.5 mg IV Q15MIN PRN PRN Reason: Pain, Last Admin: 09/15/23 16:58 Dose: 0.5 mg Documented By: Admin: 09/15/23 15:08 Dose: 0.5 mg Documented By: PAULETTE Sodium Chloride (Normal Saline 0.9%) 1,000 mls @ 150 mls/hr IV CONT [facility] Last Infusion: 09/15/23 18:31 Dose: Infused Documented By: Admin: 09/15/23 12:11 Dose: 150 mls/hr Documented By: Sodium Chloride (Normal Saline 0.9%) 1,000 mls @ 1,000 mls/hr IV BOLUS ONE Stop: 09/15/23 12:02 Last Infusion: 09/15/23 11:51 Dose: Infused Documented By: Admin: 09/15/23 11:04 Dose: 1,000 mls/hr Documented By: Sodium Chloride (Normal Saline 0.9%) 1,000 mls @ 1,000 mls/hr IV BOLUS ONE Stop: 09/15/23 12:47 Last Infusion: 09/15/23 13:12 Dose: Infused Documented By: Admin: 09/15/23 11:55 Dose: 1,000 mls/hr Documented By: Morphine Sulfate (Morphine 4 Mg/Ml Inj) 4 mg IV NOW ONE Stop: 09/15/23 11:49 Last Admin: 09/15/23 11:54 Dose: 4 mg Documented By: Vital Signs Vital signs: Vital Signs - 8 hr 09/15/23 10:53 09/15/23 10:53 09/15/23 10:54 Pulse Rate 78 82 Respiratory Rate 18 Blood Pressure 93/59 L 93/59 L Pulse Oximetry 98 98 Oxygen Delivery Method Room Air 09/15/23 10:54 09/15/23 11:00 09/15/23 11:00 Pulse Rate 77 72 Respiratory Rate 20 17 Blood Pressure 89/54 L Pulse Oximetry 98 98 Oxygen Delivery Method 09/15/23 11:02 09/15/23 11:02 09/15/23 11:15 Pulse Rate 70 Respiratory Rate 21 Blood Pressure 88/54 L 88/51 L Pulse Oximetry 97 Oxygen Delivery Method 09/15/23 11:15 09/15/23 11:30 09/15/23 11:30 Pulse Rate 68 68 Respiratory Rate 23 Blood Pressure 97/56 L Pulse Oximetry 96 96 Oxygen Delivery Method Room Air 09/15/23 11:45 09/15/23 11:45 09/15/23 12:00 Pulse Rate 66 65 Respiratory Rate 15 20 Blood Pressure 89/55 L Pulse Oximetry 97 96 Oxygen Delivery Method 09/15/23 12:00 09/15/23 12:15 09/15/23 12:15 Pulse Rate 66 Respiratory Rate 18 Blood Pressure 88/54 L 120/59 L Pulse Oximetry 97 Oxygen Delivery Method 09/15/23 12:30 09/15/23 12:30 09/15/23 12:45 Pulse Rate 68 Respiratory Rate 16 Blood Pressure 127/57 L 127/67 Pulse Oximetry 98 Oxygen Delivery Method 09/15/23 12:45 09/15/23 13:00 09/15/23 13:00 Pulse Rate 71 68 Respiratory Rate 12 17 Blood Pressure 121/63 Pulse Oximetry 99 99 Oxygen Delivery Method 09/15/23 13:15 09/15/23 13:15 09/15/23 13:30 Pulse Rate 70 68 Respiratory Rate 13 12 Blood Pressure 128/69 Pulse Oximetry 99 97 Oxygen Delivery Method 09/15/23 13:30 09/15/23 13:45 09/15/23 13:45 Pulse Rate 68 Respiratory Rate Blood Pressure 116/61 129/65 Pulse Oximetry 98 Oxygen Delivery Method 09/15/23 14:00 09/15/23 14:00 09/15/23 14:15 Pulse Rate 69 Respiratory Rate 18 Blood Pressure 119/62 124/61 Pulse Oximetry 97 Oxygen Delivery Method 09/15/23 14:15 09/15/23 14:30 09/15/23 14:30 Pulse Rate 65 65 Respiratory Rate 13 13 Blood Pressure 114/64 Pulse Oximetry 98 98 Oxygen Delivery Method 09/15/23 14:45 09/15/23 14:45 09/15/23 15:00 Pulse Rate 72 Respiratory Rate Blood Pressure 146/65 H 133/72 Pulse Oximetry 99 Oxygen Delivery Method Room Air 09/15/23 15:00 Pulse Rate 66 Respiratory Rate 16 Blood Pressure Pulse Oximetry 99 Oxygen Delivery Method Medical Decision Making Lab Data 09/15/23 10:45 09/15/23 10:45 Labs: Lab Results 09/15/23 09/15/23 09/15/23 Range/Units 10:45 13:05 15:14 WBC 6.6 (4.5-11.0) X10^3/uL RBC 3.68 L (4.5-5.9) X10^6/uL Hgb 10.5 L (13.5-17.5) g/dL Hct 32.4 L (41-53) % MCV 88.1 (80-100) fL MCH 28.5 (26-34) PG MCHC 32.3 (30-36) % RDW 15.3 H (11.6-14.8) % Plt Count 304 (150-400) X10^3/uL Neut % (Auto) 70.1 (50-75) % Lymph % (Auto) 20.5 L (25-40) % [place] % (Auto) 8.4 (3-14) % Eos % (Auto) 0.6 L (2-4) % Baso % (Auto) 0.4 (0-2) % Neut # (Auto) 4600 (0189-9649) /uL Lymph # (Auto) 1400 (7044-4163) /uL [place] # (Auto) 600 (0-900) /uL Eos # (Auto) 0 (0-450) /uL Baso # (Auto) 0 (0-100) /uL D-Dimer 959 H (<500) ng/ml Sodium 140 (137-145) mmol/L Potassium 4.0 (3.4-5.1) mmol/L Chloride 111 H (98-107) mmol/L Carbon Dioxide 17 L (22-32) mmol/L BUN 33 H (9-20) mg/dL Creatinine 1.50 H (0.66-1.25) mg/dL Estimated GFR 50 L (>60) mL/min BUN/Creatinine Ratio 22.0 (6-22) Glucose 134 H (80-110) mg/dL Calcium 8.9 (8.4-10.2) mg/dL Total Bilirubin 0.5 (0.2-1.3) mg/dL AST 23 (17-59) IU/L ALT 17 (<50) IU/L Alkaline Phosphatase 109 (38-126) U/L Total Creatine Kinase 49 L (55-170) U/L Troponin I < 0.012 < 0.012 (0.01-0.034) ng/mL NT-Pro-B Natriuret Pep 139 H (<125) pg/mL Total Protein 7.0 (6.3-8.2) g/dL Albumin 4.1 (3.5-5.0) g/dL Globulin 2.9 (1.7-4.1) g/dL Albumin/Globulin Ratio 1.4 (1.0-2.8) Lipase 39 (23-300) U/L Urine Color Yellow Urine Appearance Clear Urine pH 5.5 (4.5-8.0) Ur Specific [place] 1.020 (1.000-1.035) Urine Protein Negative (Negative) Urine Glucose (UA) Negative (Negative) g/dL Urine Ketones Trace H (NEGATIVE) Urine Occult Blood Negative (Negative) Urine Nitrate Negative (Negative) Urine Bilirubin Negative (NEGATIVE) Urine Urobilinogen 1.0 (0.2) E.U./dL Ur Leukocyte Esterase Negative (NEGATIVE) Urine RBC None seen (0-5/HPF) Urine WBC 5-10/hpf H (0-5/HPF) Ur Squamous Epith Cells 5-10 /hpf H (0-5/HPF) Urine Bacteria Few (2-10) H (None) Urine Mucus 1+ H (Negative) Ur Culture Indicated? Specimen cultured Vol Urine Centrifuged 10ml (spun) MDM Narrative Medical decision making narrative: CC: Chest pain Complicating co-morbidities: Coronary artery disease, hypertension Data collected from: patient Social determinants of health that may influence the patients condition: Medical records reviewed: Discharge summary from January 29 where he was admitted for hypotension, acute anemia transfused a unit of packed red cells, ACS was ruled out, brain MRI did not suggest acute stroke however he continued to have dizziness at time discharge. Patient seen in the emergency department on July 15 with complaints similar to today with eventual discharge home Most recent echocardiogram was in January showed an ejection fraction of 60- 65%, mild aortic stenosis normal LV size and wall thickness. Differential considered: STEMI, NSTEMI, pericarditis, upper GI bleed, pancreatitis Exam documented above, pertinent findings include: Patient appears acutely uncomfortable, pale, diaphoretic complaining of 9/10 test pain able to speak in full sentences no acute respiratory distress. No reproducible pain with palpation of his abdomen, no lower extremity edema Lab Test results independently reviewed as above. Pertinent findings: CBC shows white blood cell count at 6.6. Mild anemia at 10.5 and 32.4 which is stable compared to July of 2023 Chemistries are notable for a slight bump in creatinine from 1.1 in July up to 1.5 currently. No evidence of congestive heart failure Initial troponin is undetectable, repeat troponin is undetectable Lipase is reassuring D-dimer is elevated at 900 however similar to about a year ago and pulmonary embolism was not found at that time. Given his bump in creatinine, I do not think that a CT angiogram is going to give us additional information in his risk for PE is low Independently reviewed EKG: EKG shows normal sinus rhythm at a rate of 75. There are no acute ischemic changes appreciated is similar to previous EKGs Imaging studies independently reviewed: Chest x-ray is unremarkable CT scan of the chest abdomen and pelvis done on July 16, 2023 for similar presentation and complaint was entirely benign. Consultations: Treatments: 2 L of fluid, slight response with increased blood pressure, continued central chest pain, morphine is given. Blood pressure has not been high enough to give nitroglycerin to see if this influences his pain Morphine was minimally effective for controlling his pain however a mg of Dilaudid almost completely relieved his pain. Re-evaluations:1158 patient is still complaining of significant pain. Labs reviewed. We will give him morphine another L of fluid Discussion: 68-year-old gentleman with 9/10 substernal chest pain normal troponins, unremarkable EKGs and persistent hypotension. He had an admission for similar complaints in January of 2023 that suggested his hypotension could be related to his blood pressure medications. At the time he was given a unit of packed red blood cells with no significant change in symptoms. He was noted to have chronic microcytic anemia, trial of midodrine was done. Without the blood pressure medications and Flomax and Imdur decreased from 60-30 mg and with the midodrine his blood pressures did seem to improve. Seen in the emergency department 2 months ago again, similar complaints. Notes indicate that he does have a history of gastric bypass with gastric ulcer. He is on a proton pump inhibitor. CT scan of the chest abdomen and pelvis did not show acute abnormalities and he was eventually discharged home. With today's presentation he continues to have significant chest pain eventually relieved with Dilaudid. He has had slight acute kidney injury with dehydration and was responded to 2 L of fluid. He did have a couple of episodes of sinus bradycardia as low as 40 that seemed asymptomatic. Unclear if this has any relevance to any of his current presentation. At this time is only blood pressure depressing medication seems to be Flomax. Terms of a GI etiology for his pain his last upper endoscopy for atypical chest pain was September 16, 2021. Follow up endoscopy with Gastroenterology on October 14, 2021 showed continued anastomotic ulceration with retained sutures after a [place] 1 style gastric surgery. We will discuss patient with the hospitalist and consider admission for acute kidney injury, hypotension, chest pain. Discharge Plan Departure Patient Disposition: Admitted As Inpatient Clinical Impression: Acute kidney injury, Acute hypotension Chest pain Qualifiers: Chest pain type: unspecified Qualified Code(s): R07.9 - Chest pain, unspecified Admit Date/Time: 09/15/23 15:23 Admit Provider: Eddie Webb
--- NOTE | 2023-09-15 11:01 | DI.RAD.S_ITS ---
PROCEDURE: XR CHEST 1V INDICATIONS: chest pain TECHNIQUE: One view of the chest was acquired. COMPARISON: [facility], CR, XR CHEST 1V, 07/16/2023, 11:07. [facility], CR, XR CHEST 1V, 01/26/2023, 10:01. FINDINGS: Surgical changes and devices: ACDF of the lower cervical spine. Lungs and pleura: Lungs are clear. No pleural effusions or pneumothorax. Mediastinum: Mediastinal contours appear normal. Heart size is normal. Bones and chest wall: No suspicious bony lesions. Overlying soft tissues appear unremarkable. IMPRESSION: No acute cardiopulmonary abnormality is seen. Dictated by: Matthew García M.D. on 09/15/2023 at 11:23 Approved by: Matthew García M.D. on 09/15/2023 at 11:24
[2023-09-15] MEDS: SODIUM CHLORIDE 0.9% 1,000 ML 1000 ML IV ×2 (11:04→11:55)
[2023-09-15 11:09] LABS: Add Manual Diff / Slide Review NO; Basophils Absolute Auto 0 /uL (0-100); Basophils Percent Auto 0.4 % (0-2); Eosinophils Absolute Auto 0 /uL (0-450); Eosinophils Percent Auto 0.6 % (2-4); Hematocrit 32.4 % (41-53); Hemoglobin 10.5 g/dL (13.5-17.5); Lymphocytes Absolute Auto 1400 /uL (1100-4500); Lymphocytes Percent Auto 20.5 % (25-40); Mean Corpuscular HGB Conc 32.3 % (30-36); Mean Corpuscular Hemoglobin 28.5 PG (26-34); Mean Corpuscular Volume 88.1 fL (80-100); Monocytes Absolute Auto 600 /uL (0-900); Monocytes Percent Auto 8.4 % (3-14); Neutrophils Absolute Auto 4600 /uL (1500-7000); Neutrophils Percent Auto 70.1 % (50-75); Platelet Count 304 X10^3/uL (150-400); Red Blood Cell Count 3.68 X10^6/uL (4.5-5.9); Red Cell Distribution Width 15.3 % (11.6-14.8); White Blood Cell Count 6.6 X10^3/uL (4.5-11.0)
[2023-09-15 11:12] LABS: D Dimer 959 ng/ml (<500)
[2023-09-15 11:15] LABS: Alanine Aminotransferase 17 IU/L (<50); Albumin 4.1 g/dL (3.5-5.0); Albumin Globulin Ratio 1.4 (1.0-2.8); Alkaline Phosphatase 109 U/L (38-126); Aspartate Aminotransferase 23 IU/L (17-59); Bilirubin Total 0.5 mg/dL (0.2-1.3); Blood Urea Nitrogen 33 mg/dL (9-20); Calcium 8.9 mg/dL (8.4-10.2); Carbon Dioxide 17 mmol/L (22-32); Chloride 111 mmol/L (98-107); Creatine Kinase 49 U/L (55-170); Estimated Glomerular Filt Rate 50 mL/min (>60); Globulin 2.9 g/dL (1.7-4.1); Glucose 134 mg/dL (80-110); HEMOLYSIS < 15 (0-50); Lipase 39 U/L (23-300); Sodium 140 mmol/L (137-145)
[2023-09-15 11:26] LABS: NT-proBNP (BNP-Adult 18+) 139 pg/mL (<125); Troponin I < 0.012 ng/mL (0.01-0.034)
[2023-09-15] MEDS: MORPHINE 4 MG/ML INJ IV (11:54)
[2023-09-15] MEDS: SODIUM CHLORIDE 0.9% 1,000 ML 150 ML IV (12:11)
[2023-09-15] MEDS: HYDROMORPHONE 1 MG INJ IV (13:19)
[2023-09-15 13:40] LABS: Troponin I < 0.012 ng/mL (0.01-0.034)
[2023-09-15] MEDS: HYDROMORPHONE 0.5 MG INJ IV ×2 (15:08→16:58)
--- NOTE | 2023-09-15 15:24 | P.HP_ITS ---
History of Present Illness History of Present Illness Date Patient Seen: 09/15/23 Time Patient Seen: 15:25 Chief complaint: Chest Pain h/o [place] Narrative: Kristian Yin is a 68yo M with PMH of GERD with gastric ulcer, prior gastric bypass, non-obstructive CAD, HTN, HLD, DM2, depression, chronic anemia, and kidney stones who presented here for an episode of chest pain. He states he was in his car this morning when he felt severe chest pressure, without radiation, substernally. He did not try and take anything to alleviate his symptoms. He felt dizzy, diaphoretic, and short of breath. He got dilaudid in the emergency room with improvement. He has had multiple previous admissions for chest pain, most recently 2022. In 10/2021 patient had [facility] with nonobstructive mild CAD (20% LAD per [facility] report). Previous evaluations have showed normal nuclear stress testing and normal echocardiograms. His previous evaluations were notable for costochondritis. He denies melena, BRBPR, or hematemesis. He did have an episode of nb/nb emesis once last thursday. He denies fever, chills, abdominal pain, nausea or vomiting since the one episode. He states his appetite has been normal. He was initially hypotensive with EMS and in the ER but this improved / resolved with 2L of IV fluids. He appeared well and BP did not fall when attempting to stand to void in the emergency room. Discussed with patient risks and benefits of observation in the hospital or discharge home, patient elected for observation in the hospital. [facility] Medical History GERD (gastroesophageal reflux disease) HNP (herniated nucleus pulposus), lumbar History of bleeding ulcers Hypertriglyceridemia Non-insulin dependent type 2 diabetes mellitus HTN (hypertension) Nephrolithiasis Degenerative disc disease Surgical History History of vasectomy History of colonoscopy History of cholecystectomy History of gastric bypass History of cervical spinal surgery Status post lumbar surgery Family History Mother No known health problems Father No known health problems Social History household members: spouse and children Smoking Status: Former smoker alcohol intake: current Meds Home Medications and Allergies Home Medications Medication Instructions Recorded Confirmed Type diphenhydramine 25 2 tab PO BEDTIME PRN Pain (Scale 09/10/18 01/26/23 History mg-acetaminophen 500 mg tablet Score 1-3) (Tylenol PM Extra Strength) multivitamin 1 tab PO DAILY 09/10/18 01/26/23 History fluoxetine 60 mg tablet 60 mg PO DAILY 12/18/20 01/26/23 History olanzapine 20 mg tablet 20 mg PO BEDTIME 12/18/20 01/26/23 History acetaminophen 325 mg tablet 650 mg (2 x 325 mg) PO Q6H PRN 01/18/23 01/26/23 Rx Fever/Mild Pain (1-3) #50 tabs aspirin 81 mg tablet,delayed 81 mg PO DAILY #30 tabs 01/18/23 01/26/23 Rx release atorvastatin 20 mg tablet 40 mg (2 x 20 mg) PO BEDTIME #30 01/18/23 01/26/23 Rx tabs hydrocodone 5 mg-acetaminophen 325 1 tab PO Q6H PRN pain #30 tabs 01/18/23 01/26/23 Rx mg tablet lidocaine 5 % topical patch 1 patch topical 0630 #30 ea 01/18/23 01/26/23 Rx melatonin 3 mg tablet 6 mg (2 x 3 mg) PO BEDTIME PRN 01/18/23 01/26/23 Rx Insomnia #60 tabs metformin 1,000 mg tablet 1,000 mg PO BID #60 tabs 01/18/23 01/26/23 Rx nitroglycerin 0.4 mg sublingual 0.4 mg sublingual [id number] PRN 01/18/23 01/26/23 Rx tablet (Nitrostat) Chest Pain #30 tabs ondansetron 4 mg disintegrating 4 mg PO Q4HR PRN NV #30 tabs 01/18/23 01/26/23 Rx tablet pantoprazole 20 mg tablet,delayed 40 mg (2 x 20 mg) PO 0700 #30 tabs 01/18/23 01/26/23 Rx release polyethylene glycol 3350 17 gram 17 gm PO DAILY PRN Constipation 01/18/23 01/26/23 Rx oral powder packet #15 ea prednisone 20 mg tablet 40 mg (2 x 20 mg) PO DAILY #6 tabs 01/18/23 01/26/23 Rx sennosides 8.6 mg tablet (senna) 8.6 mg PO BID PRN Constipation #30 01/18/23 01/26/23 Rx tabs ferrous sulfate 325 mg (65 mg 325 mg PO DAILY #90 tabs 01/29/23 Rx iron) tablet isosorbide mononitrate 30 mg 30 mg PO DAILY #30 tabs 01/29/23 01/26/23 Rx tablet,extended release 24 hr tamsulosin 0.4 mg capsule (Flomax) 0.4 mg PO DAILY #30 caps 01/29/23 01/26/23 Rx Allergies Allergy/AdvReac Type Severity Reaction Status Date / Time NSAIDS (Non-Steroidal AdvReac Mild CAN TAKE, Verified 07/16/23 11:02 Anti-Inflamma BUT TRIES [NSAIDS (NON-STEROIDAL TO AVOID ANTI-INFLAMMA] R/T GASTRIC BYPASS Review of Systems Review of Systems Narrative: All other systems reviewed with the patient and are negative unless otherwise stated. Exam Vital Signs (past 8 hours): - 09/15/23 10:53 09/15/23 10:53 09/15/23 10:54 Pulse Rate 78 82 Respiratory Rate 18 Blood Pressure 93/59 L 93/59 L Pulse Oximetry 98 98 Oxygen Delivery Method Room Air 09/15/23 10:54 09/15/23 11:00 09/15/23 11:00 Pulse Rate 77 72 Respiratory Rate 20 17 Blood Pressure 89/54 L Pulse Oximetry 98 98 Oxygen Delivery Method 09/15/23 11:02 09/15/23 11:02 09/15/23 11:15 Pulse Rate 70 Respiratory Rate 21 Blood Pressure 88/54 L 88/51 L Pulse Oximetry 97 Oxygen Delivery Method 09/15/23 11:15 09/15/23 11:30 09/15/23 11:30 Pulse Rate 68 68 Respiratory Rate 23 Blood Pressure 97/56 L Pulse Oximetry 96 96 Oxygen Delivery Method Room Air 09/15/23 11:45 09/15/23 11:45 09/15/23 12:00 Pulse Rate 66 65 Respiratory Rate 15 20 Blood Pressure 89/55 L Pulse Oximetry 97 96 Oxygen Delivery Method 09/15/23 12:00 09/15/23 12:15 09/15/23 12:15 Pulse Rate 66 Respiratory Rate 18 Blood Pressure 88/54 L 120/59 L Pulse Oximetry 97 Oxygen Delivery Method 09/15/23 12:30 09/15/23 12:30 09/15/23 12:45 Pulse Rate 68 Respiratory Rate 16 Blood Pressure 127/57 L 127/67 Pulse Oximetry 98 Oxygen Delivery Method 09/15/23 12:45 09/15/23 13:00 09/15/23 13:00 Pulse Rate 71 68 Respiratory Rate 12 17 Blood Pressure 121/63 Pulse Oximetry 99 99 Oxygen Delivery Method 09/15/23 13:15 09/15/23 13:15 09/15/23 13:30 Pulse Rate 70 68 Respiratory Rate 13 12 Blood Pressure 128/69 Pulse Oximetry 99 97 Oxygen Delivery Method 09/15/23 13:30 09/15/23 13:45 09/15/23 13:45 Pulse Rate 68 Respiratory Rate Blood Pressure 116/61 129/65 Pulse Oximetry 98 Oxygen Delivery Method 09/15/23 14:00 09/15/23 14:00 09/15/23 14:15 Pulse Rate 69 Respiratory Rate 18 Blood Pressure 119/62 124/61 Pulse Oximetry 97 Oxygen Delivery Method 09/15/23 14:15 09/15/23 14:30 09/15/23 14:30 Pulse Rate 65 65 Respiratory Rate 13 13 Blood Pressure 114/64 Pulse Oximetry 98 98 Oxygen Delivery Method 09/15/23 14:45 09/15/23 14:45 Pulse Rate 72 Respiratory Rate Blood Pressure 146/65 H Pulse Oximetry 99 Oxygen Delivery Method Room Air Oxygen Delivery Method Room Air Narrative Exam Narrative: General:? Patient is well developed and well nourished, in no distress at this time. HEENT:? Normocephalic, atraumatic, extraocular muscles intact, oral pharynx is clear and mucous membranes are moist. Neck: supple and symmetric, trachea is midline, no cervical adenopathy. Negative for JVD Chest:? Normal AP diameter and contour without kyphoscoliosis, no tachypnea, equal chest rise bilaterally. Reproducible chest tenderness upon palpation of his sternum Lungs:? CTA b/l no wheezing rhonchi or rales. Cardio:?RRR no m/r/g. Abdomen: S NT ND. No CVA tenderness. Musculoskeletal:? Muscle strength and tone are equal within normal limits, no deformity. Extremities: No edema or joint effusions. No cyanosis or clubbing. Skin:? Pale,? Warm to touch,dry and intact without rashes, ulcerations or petechiae.? Neuro:? Alert and orientated x3,? sensation to touch intact in all extremities, no gross deficits noted of cranial nerves. Psych:? Patient has a well-kept appearance, appropriate affect, mental status attitude thought context and judgment are appropriate for age. Objective ECG Impression: Normal sinus rhythm Left axis deviation Pulmonary disease pattern Incomplete right bundle branch block Similar to previous tracings without evidence of acute ischemia. Labs 09/15/23 10:45 09/15/23 10:45 Labs: Laboratory Results - last 24 hr 09/15/23 09/15/23 10:45 13:05 WBC 6.6 RBC 3.68 L Hgb 10.5 L Hct 32.4 L MCV 88.1 MCH 28.5 MCHC 32.3 RDW 15.3 H Plt Count 304 Neut % (Auto) 70.1 Lymph % (Auto) 20.5 L [place] % (Auto) 8.4 Eos % (Auto) 0.6 L Baso % (Auto) 0.4 Neut # (Auto) 4600 Lymph # (Auto) 1400 [place] # (Auto) 600 Eos # (Auto) 0 Baso # (Auto) 0 D-Dimer 959 H Sodium 140 Potassium 4.0 Chloride 111 H Carbon Dioxide 17 L BUN 33 H Creatinine 1.50 H Estimated GFR 50 L BUN/Creatinine Ratio 22.0 Glucose 134 H Calcium 8.9 Total Bilirubin 0.5 AST 23 ALT 17 Alkaline Phosphatase 109 Total Creatine Kinase 49 L Troponin I < 0.012 < 0.012 NT-Pro-B Natriuret Pep 139 H Total Protein 7.0 Albumin 4.1 Globulin 2.9 Albumin/Globulin Ratio 1.4 Lipase 39 Assessment & Plan Assessment & Plan narrative: # reproducible chest pain, recurrent costochondritis, nonobstructive CAD -worse with palpation of anterior chest wall over left sternum, suggesting noncardiac and more likely costchondritis. His pain was also alleviated with dilaudid. -patient has significant anxiety about his chest pain, also possibly contributing. His BP was low, significantly improved with IV fluids. Possibly dehydrated with recent gastroenteritis symptoms and episode of vomiting recently possibly leading to low BP and chest pain. -continue telemetry for now -troponins negative, no changes are noted to his prior EKGs. ACS is highly unlikely. -will check a limited echo, previous TTE unremarkable in 10/2022. -continue home asa and statin -Patient is s/p C in 10/2021 which showed 20% LAD disease. He was discharged from cardiology clinic due to no further evaluation warranted for his ongoing chest pain. Latest cardiology progress note was printed and put in patient's chart to be scanned in. -analgesia with tylenol and topical diclofenac for now. #LAURIE, resolved hypotension due to hypovolemia - likely related to relative hypovolemia - repeat AM labs, got 2 L of IV fluid with improvement in hypotension - has history of orthostatic hypotension as well. # DM2 -hold home medications, and use SSI. Glucose in low 100s on admit labs. # HTN - hold any home medications for now # depression -continue fluoxetine and olanzapine #history of gastric bypass - avoid NSAID use Code status is full code. DVT prophylaxis with SCDs. Proxy is spouse Cecy. I have reviewed home meds and used all available resources to reconcile the home meds. Case discussed with ED physician and patient will be admitted to the hospitalist service for further workup and management. This patient will be admitted as observation and will require less than 2 midnights of hospital time to treat atypical chest pain. Likely discharge home tomorrow.
[2023-09-15 16:12] LABS: Appearance Urine UA CLEAR; Bilirubin Urine UA NEGATIVE (NEGATIVE); Color Urine UA YELLOW; Glucose Urine UA NEGATIVE (Negative); Ketones Urine UA TRACE (NEGATIVE); Leukocyte Esterase Urine UA NEGATIVE (NEGATIVE); Nitrite Urine UA NEGATIVE (Negative); Occult Blood Urine UA NEGATIVE (Negative); Protein Urine UA NEGATIVE (Negative); pH Urine UA 5.5 (4.5-8.0)
[2023-09-15 16:28] LABS: Bacteria Urine Few (2-10); Culture Indicated Urine Specimen Cultured; Mucus Urine 1+ (Negative); RBC Urine None Seen (0-5/HPF); Squamous Epithelial Cell Urine 5-10 /HPF (0-5/HPF); Urine Volume 10mL (spun); WBC Urine 5-10/HPF (0-5/HPF)
--- NOTE | 2023-09-15 17:14 | DI.ECHO.S_ITS ---
[place] [facility]+ [facility] : : [address] : : [place] : : [id number] : : Phone: [phone] Echocardiogram Report + + :Name: ASHLEY WALDRON Study Date: 09/16/2023 Height: 66 in : :[facility] ReadingLocation: Weight: 190 lb : : Gender: Male BSA: 2.0 m2 : :: 1955 Age: 68 yrs BP: 125/64 mmHg: :Reason For Study: CHEST PAIN : :Ordering Physician: JACQUIE, : :DILIA COLBERT Performed By: Geri Stratton : :Referring: DILIA DHILLON : + + Interpretation Summary 1. This is a limited echocardiogram. 2. The left ventricular contractility is normal. Estimate ejection fraction is greater than 55% with no segmental wall motion abnormalities. No LVH is noted. Unable to comment on diastolic function. 3. The aortic valve is trileaflet with no significant insufficiency nor stenosis appreciated. 4. No intracardiac masses noted in the left ventricle. 5. No hemodynamically significant pericardial effusion identified. Conclusion: Normal left ventricular systolic function. Procedure: Images were not obtained from all of the standard acoustic windows due to the limited scope of the study. The study quality was technically adequate. Comparison is made with the echocardiogram of 01/17/2023. A contrast injection of Definity was performed to improve assessment of LV function. The patient was in sinus bradycardia with heart rates between 51-62 bpm during the exam. Left Ventricle: The left ventricle is normal in size and wall thickness. The ejection fraction is estimated to be 60-65%. Aortic Valve: The aortic valve is trileaflet. The aortic valve is mildly calcified. The peak aortic velocity is 1.9 m/sec. The aortic valve mean gradient is 8.2 mmHg. Pericardium/ Pleura There is no pericardial effusion. There is no pleural effusion. MMode/2D Measurements & Calculations LVIDd: 5.0 cm LVOT diam: 2.0 cm LVIDs: 3.1 cm FS: 37.5 % IVSd: 0.83 cm LVPWd: 0.90 cm LV dougherty. diameter/BSA (cm/m^2): 2.6 LV sys. diameter/BSA (cm/m^2): 1.6 Doppler Measurements & Calculations Ao V2 max: 196.1 cm/sec LVOT Max Jeremy: 113.5 cm/sec Ao V2 mean: 135.4 cm/sec LV V1 max P.2 mmHg Ao max P.4 mmHg LV V1 VTI: 26.9 cm Ao mean P.2 mmHg ROBYN(I,D): 1.9 cm2 Ao V2 VTI: 45.9 cm ROBYN(V,D): 1.9 cm2 sev ratio: 0.59 ROBYN indexed to BSA (cm^2/m^2): 0.97 SV(LVOT): 87.1 ml Reading Physician:
[2023-09-15] MEDS: ACETAMINOPHEN 325 MG TABLET 650 MG PO (17:50)
[2023-09-15] MEDS: DICLOFENAC 1% GEL 100 GM 1 APPLIC TOP ×2 (17:51→21:12)
[2023-09-15] MEDS: TRAMADOL 50 MG TABLET PO (18:37)
--- NOTE | 2023-09-15 18:41 | PC.NURSE ---
Admit Note Patient arrived to room 221 from ER at 1715, SBA to bed. Pt reports chest pain 7/10 to mid-chest, MD aware, administered tylenol, diclofenac ointment, and tramadol. On tele NSR in the 60s. Oriented to room and to call light/bed/tv controls. Instructed to use call light to make needs known, acknowledged understanding.
[2023-09-15] MEDS: OXYCODONE IR 5 MG TABLET PO (21:11)
[2023-09-15] MEDS: SODIUM CHLORIDE 0.9% FLUSH 10 ML IV (21:13)
[2023-09-16 00:13] VITALS: BP 125/64; PULSE 65; RESP 18; TEMP 36.2; O2SAT 95
[2023-09-16] MEDS: OLANZapine 2.5 MG TABLET 20 MG PO (01:09)
[2023-09-16] MEDS: OXYCODONE IR 5 MG TABLET PO (03:23)
[2023-09-16 05:10] LABS: Add Manual Diff / Slide Review NO; Basophils Absolute Auto 0 /uL (0-100); Basophils Percent Auto 0.6 % (0-2); Eosinophils Absolute Auto 100 /uL (0-450); Eosinophils Percent Auto 2.3 % (2-4); Hematocrit 28.1 % (41-53); Hemoglobin 9.4 g/dL (13.5-17.5); Lymphocytes Absolute Auto 1700 /uL (1100-4500); Lymphocytes Percent Auto 33.9 % (25-40); Mean Corpuscular HGB Conc 33.5 % (30-36); Mean Corpuscular Hemoglobin 29.1 PG (26-34); Monocytes Absolute Auto 500 /uL (0-900); Neutrophils Absolute Auto 2600 /uL (1500-7000); Neutrophils Percent Auto 52.2 % (50-75); Platelet Count 227 X10^3/uL (150-400); Red Blood Cell Count 3.24 X10^6/uL (4.5-5.9); Red Cell Distribution Width 15.2 % (11.6-14.8)
[2023-09-16 05:20] LABS: Blood Urea Nitrogen 27 mg/dL (9-20); Calcium 8.1 mg/dL (8.4-10.2); Carbon Dioxide 23 mmol/L (22-32); Chloride 111 mmol/L (98-107); Cholesterol 91 mg/dL (140-199); Estimated Glomerular Filt Rate > 60 mL/min (>60); Glucose 82 mg/dL (80-110); HDL Cholesterol 33 mg/dL (40-60); HEMOLYSIS < 15 (0-50); LDL Cholesterol Calculated 41 mg/dL (<100); Potassium 4.3 mmol/L (3.4-5.1); Sodium 138 mmol/L (137-145); Triglycerides 83 mg/dL (35-150)
[2023-09-16 06:22] LABS: TSH w/ Reflex to FT4 1.02 uIU/mL (0.47-4.68)
[2023-09-16 06:52] VITALS: BP 152/74; PULSE 60; RESP 17; TEMP 36.2; O2SAT 99
[2023-09-16 08:00] VITALS: BP 151/73; PULSE 58; RESP 14; TEMP 36.1; O2SAT 100
[2023-09-16] MEDS: DICLOFENAC 1% GEL 100 GM 1 APPLIC TOP (08:10)
[2023-09-16] MEDS: SODIUM CHLORIDE 0.9% FLUSH 10 ML IV (08:17)
[2023-09-16] MEDS: TRAMADOL 50 MG TABLET PO (08:18)
[2023-09-16 10:00] VITALS: O2SAT 100
--- NOTE | 2023-09-16 11:01 | CM.DANOTE ---
Initial DCP Assessment Visit Note Reviewed EMR and team rounds for status updates. Met with pt briefly at bedside to introduce self and role, pt was found to be alert/oriented, stating he is feeling much better today. Pt lives with his spouse in their own home in [place]. His spouse will drive him home once he's medically cleared for home d/c, which will be later this afternoon. He denies any assistance/resource needs from this [employer] at this time. Payor: ADRYAN GRIFFIN Adv PCP: Shin Estefanía Pt is a 68 year-old M who presented to the ED yesterday with c/o sudden onset, acute pain in the center of his chest that did not improve with rest. He was found to be mildly diaphoretic w/tachypnea. He was started on 2-liters of O2 in the ED, given IV morphine with little benefit, but responded well to an additional dose of Dilaudid that resolved the pain. He does have an LAURIE secondary to dehydration. Plan was made to place pt in OBS overnight for further monitoring. He has recovered well and is being discharged. [facility] will continue to follow for any further evolving needs prior to his departure. Discharge Planning/Care Management CM Discharge Assessment Start: 09/16/23 10:58 Freq: Status: Active Protocol: Document 09/16/23 10:58 DPL (Rec: 09/16/23 11:01 DPL [id number]) Discharge Planning Assessment Assigned Manager Code ADAM Washburn Advance Directives? No Advance Directives on File No History Provided By Patient,Medical Record Has Patient been admitted in last 30 No days? Prior Living Arrangements House Household Members spouse Type of transporation used prior to Drives own vehicle admit Independent with ADL's Yes Is patient alert and oriented? Yes Caregiver for Another No Comment N/A Comment N/A Discharge Plan Home Transportation Arrangement Spouse POV Referrals Initiated None needed Whiteboard Updated in Patient Room with Yes name and ext. # of Manager Code Review Status In Process Please Provide Date Initial DC 09/16/23 Assessment Was Performed
--- NOTE | 2023-09-16 11:11 | P.DS_ITS ---
History of Present Illness History of Present Illness Chief complaint: Chest Pain h/o [place] Narrative: From H&P: Kristian Yin is a 68yo M with PMH of GERD with gastric ulcer, prior gastric bypass, non-obstructive CAD, HTN, HLD, DM2, depression, chronic anemia, and kidney stones who presented here for an episode of chest pain. He states he was in his car this morning when he felt severe chest pressure, without radiation, substernally. He did not try and take anything to alleviate his symptoms. He felt dizzy, diaphoretic, and short of breath. He got dilaudid in the emergency room with improvement. He has had multiple previous admissions for chest pain, most recently 2022. In 10/2021 patient had [facility] with nonobstructive mild CAD (20% LAD per [facility] report). Previous evaluations have showed normal nuclear stress testing and normal echocardiograms. His previous evaluations were notable for costochondritis. He denies melena, BRBPR, or hematemesis. He did have an episode of nb/nb emesis once last thursday. He denies fever, chills, abdominal pain, nausea or vomiting since the one episode. He states his appetite has been normal. He was initially hypotensive with EMS and in the ER but this improved / resolved with 2L of IV fluids. He appeared well and BP did not fall when attempting to stand to void in the emergency room. Discussed with patient risks and benefits of observation in the hospital or discharge home, patient elected for observation in the hospital. Discharge Providers Provider Date of admission: 09/15/23 15:23 Discharge Date: 09/16/23 Primary care physician: Shin José PA-C Consults: None. Discharge provider: Edgar Blanco MD Summary Hospital Course Discharge Diagnosis: 1. Recurrent costochondritis, present on admission and active. -worse with palpation of anterior chest wall over left sternum, suggesting noncardiac and more likely costchondritis. His pain was also alleviated with dilaudid. -patient has significant anxiety about his chest pain, also possibly contributing. His BP was low, significantly improved with IV fluids. Possibly dehydrated with recent gastroenteritis symptoms and episode of vomiting recently possibly leading to low BP and chest pain. -Patient is s/p C in 10/2021 which showed 20% LAD disease. He was discharged from cardiology clinic due to no further evaluation warranted for his ongoing chest pain. Latest cardiology progress note was printed and put in patient's chart to be scanned in. -analgesia with tylenol and topical diclofenac for now. 2. Non-obstructive CAD, present on admission and active. 3. LAURIE, present on admission and resolved 4. Hypotension due to hypovolemia,present on admission and resolved. 5. DM2, present on admission and stable. -hold home medications, and use SSI. Glucose in low 100s on admit labs. 6. HTN, present on admission and stable. - hold any home medications for now 7. Depression, present on admission and stable. -continue fluoxetine and olanzapine 8. History of gastric bypass, present on admission and stable. - avoid NSAID use Hospital Course: He was admitted with reproducible chest pain and has history of costochondritis with recurrent chest pain episodes. Evaluation included negative serial enzymes, telemetry was benign, and an echo in the day of discharge was unremarkable without any evidence of wall motion abnormalities. He was a history of a catheterization in October of 2021 revealing only 20% lad disease. He was followed by [facility] and seen once a year with Dr. Godinez. He is felt to be stable for discharge home and will use Vicodin as needed pain for the next several days and follow up with Cardiology as scheduled. Status at Discharge Cognitive/behavioral status at discharge: at baseline, oriented Functional status at discharge: independent ambulation Overall status at discharge: patient is back to baseline Time Spent with Patient Time spent: Greater than 30 minutes Exam Vital Signs (past 8 hours): - 09/16/23 06:52 09/16/23 06:52 09/16/23 08:00 Temperature 97.1 F L 96.9 F L Pulse Rate 60 58 L Respiratory Rate 17 14 Blood Pressure 152/74 H 151/73 H Pulse Oximetry 99 99 100 Oxygen Delivery Method Room Air Oxygen Flow Rate 0 0 0 09/16/23 10:00 Temperature Pulse Rate Respiratory Rate Blood Pressure Pulse Oximetry 100 Oxygen Delivery Method Room Air Oxygen Flow Rate Oxygen Delivery Method Room Air Oxygen Flow Rate 0 Narrative Exam Narrative: NAD, alert and oriented. Fluent speech. Lungs are clear, normal rate and effort. Heart is regular, no murmur gallop or rub. Abdomen is soft, non distended. Extremities are free of edema. He does have reproducible chest pain right at the site of his pain with palpation. Objective ECG Impression: Normal sinus rhythm Left axis deviation Pulmonary disease pattern Incomplete right bundle branch block Electronically Signed On 09-15-2023 15:42:02 PDT by Eddie Garcia CT scan - abdomen: Radiologist's impression: No findings to explain the patient's epigastric pain. Gastric bypass without obstruction. Cholecystectomy. Normal appendix. Colonic diverticulosis without evidence of diverticulitis. Nonobstructing 1.1 centimeter stone in the inferior calyx of the right kidney. Wide mouth infraumbilical hernia containing nonobstructed loops of small bowel. Echo: Radiologist's impression: 1. This is a limited echocardiogram. 2. The left ventricular contractility is normal. Estimate ejection fraction is greater than 55% with no segmental wall motion abnormalities. No LVH is noted. Unable to comment on diastolic function. 3. The aortic valve is trileaflet with no significant insufficiency nor stenosis appreciated. 4. No intracardiac masses noted in the left ventricle. 5. No hemodynamically significant pericardial effusion identified. Chest x-ray: Radiologist's impression: No acute cardiopulmonary abnormality is seen. Labs 09/16/23 04:12 09/16/23 04:12 Labs: Laboratory Results - last 24 hr 09/15/23 09/15/23 09/15/23 10:45 13:05 15:14 WBC RBC Hgb Hct MCV MCH MCHC RDW Plt Count Neut % (Auto) Lymph % (Auto) [place] % (Auto) Eos % (Auto) Baso % (Auto) Neut # (Auto) Lymph # (Auto) [place] # (Auto) Eos # (Auto) Baso # (Auto) D-Dimer 959 H Sodium 140 Potassium 4.0 Chloride 111 H Carbon Dioxide 17 L BUN 33 H Creatinine 1.50 H Estimated GFR 50 L BUN/Creatinine Ratio 22.0 Glucose 134 H Hemoglobin A1c Calcium 8.9 Total Bilirubin 0.5 AST 23 ALT 17 Alkaline Phosphatase 109 Total Creatine Kinase 49 L Troponin I < 0.012 < 0.012 NT-Pro-B Natriuret Pep 139 H Total Protein 7.0 Albumin 4.1 Globulin 2.9 Albumin/Globulin Ratio 1.4 Triglycerides Cholesterol LDL Cholesterol, Calc HDL Cholesterol Lipase 39 TSH Urine Color Yellow Urine Appearance Clear Urine pH 5.5 Ur Specific [place] 1.020 Urine Protein Negative Urine Glucose (UA) Negative Urine Ketones Trace H Urine Occult Blood Negative Urine Nitrate Negative Urine Bilirubin Negative Urine Urobilinogen 1.0 Ur Leukocyte Esterase Negative Urine RBC None seen Urine WBC 5-10/hpf H Ur Squamous Epith Cells 5-10 /hpf H Urine Bacteria Few (2-10) H Urine Mucus 1+ H Ur Culture Indicated? Specimen cultured Vol Urine Centrifuged 10ml (spun) 09/16/23 04:12 WBC 5.0 RBC 3.24 L Hgb 9.4 L Hct 28.1 L MCV 87.0 MCH 29.1 MCHC 33.5 RDW 15.2 H Plt Count 227 Neut % (Auto) 52.2 Lymph % (Auto) 33.9 [place] % (Auto) 11.0 Eos % (Auto) 2.3 Baso % (Auto) 0.6 Neut # (Auto) 2600 Lymph # (Auto) 1700 [place] # (Auto) 500 Eos # (Auto) 100 Baso # (Auto) 0 D-Dimer Sodium 138 Potassium 4.3 Chloride 111 H Carbon Dioxide 23 BUN 27 H Creatinine 1.00 Estimated GFR > 60 BUN/Creatinine Ratio 27.0 H Glucose 82 Hemoglobin A1c 6.0 Calcium 8.1 L Total Bilirubin AST ALT Alkaline Phosphatase Total Creatine Kinase Troponin I NT-Pro-B Natriuret Pep Total Protein Albumin Globulin Albumin/Globulin Ratio Triglycerides 83 Cholesterol 91 L LDL Cholesterol, Calc 41 HDL Cholesterol 33 L Lipase TSH 1.02 Urine Color Urine Appearance Urine pH Ur Specific [place] Urine Protein Urine Glucose (UA) Urine Ketones Urine Occult Blood Urine Nitrate Urine Bilirubin Urine Urobilinogen Ur Leukocyte Esterase Urine RBC Urine WBC Ur Squamous Epith Cells Urine Bacteria Urine Mucus Ur Culture Indicated? Vol Urine Centrifuged [facility] Medical History GERD (gastroesophageal reflux disease) HNP (herniated nucleus pulposus), lumbar History of bleeding ulcers Hypertriglyceridemia Non-insulin dependent type 2 diabetes mellitus HTN (hypertension) Nephrolithiasis Degenerative disc disease Surgical History History of vasectomy History of colonoscopy History of cholecystectomy History of gastric bypass History of cervical spinal surgery Status post lumbar surgery Family History Mother No known health problems Father No known health problems Social History household members: spouse Smoking Status: Former smoker alcohol intake: former Discharge Assessment & Plan Assessment and Plan Assessment: 1. Recurrent costochondritis, present on admission and active. -worse with palpation of anterior chest wall over left sternum, suggesting noncardiac and more likely costchondritis. His pain was also alleviated with dilaudid. -Patient is s/p [facility] in 10/2021 which showed 20% LAD disease. 2. Non-obstructive CAD, present on admission and active. 3. LAURIE, present on admission and resolved 4. Hypotension due to hypovolemia,present on admission and resolved. Plan of Treatment: Stable for discharge home, no change to medications. He will use Vicodin as needed pain for the next several days and follow up with his primary care. Discharge Plan Discharge Plan Patient Disposition: Home Provider Discharge Comment: Stable for discharge home, cardiac echo normal. Pain medications for the next few days. Close follow up with PCP. Discharge orders & Medications Prescriptions: New hydrocodone-acetaminophen 5-325 mg tablet 1 tab PO Q8H Qty: 20 0RF Continued acetaminophen 325 mg Tablet 650 mg PO Q6H PRN (Reason: Fever/Mild Pain (1-3)) Qty: 50 0RF polyethylene glycol 3350 17 gram Powder In Packet 17 gm PO DAILY PRN (Reason: Constipation) Qty: 15 0RF nitroglycerin [Nitrostat] 0.4 mg Tablet, Sublingual 0.4 mg sublingual [id number] PRN (Reason: Chest Pain) Qty: 30 0RF isosorbide mononitrate 30 mg Tablet Extended Release 24 Hr 30 mg PO DAILY Qty: 30 0RF omeprazole 20 mg Capsule,Delayed Release(Dr/Ec) 20 mg PO DAILY telmisartan-hydrochlorothiazid 80-25 mg tablet 1 tab PO DAILY metformin 1,000 mg tablet 500 mg PO BID multivitamin Tablet 1 tab PO DAILY olanzapine 20 mg tablet 20 mg PO BEDTIME Patient Comments: take 1 tablet by mouth at bedtime fluoxetine 60 mg tablet 60 mg PO DAILY Patient Comments: take 1 tablet by mouth once daily Medication counseling provided by Pharmacist: No Follow up/Referrals: Shin José PA-C [Primary Care Provider] - Diet/Activity/Treatments Diet: Carb-consistent/Diabetic Visit Report/Discharge Packet Instructions: DI for Costochondritis, DI for Prescription Opioid Use Stand Alone Forms: Patient Portal/API Discharge Data Primary Care Provider: Shin José Attending Provider: Eddie Webb Admit Date/Time: 09/15/23 15:23 Quality VTE Deep Vein Thrombosis/Pulmonary Embolism Present on Admission: No MIPS - DC The patient has a history of heart transplant or Left Ventricular Assist Device (LVAD). If yes, STOP here.: No The patient has current or prior documentation of left ventricular ejection fraction (LVEF) less than or equal to 40%, or moderate or severely depressed left ventricular systolic function.: No
[2023-09-16 12:00] VITALS: BP 124/68; PULSE 60; RESP 14; TEMP 36.1; O2SAT 100
== END 2023-09-16 12:50 | disposition home or self-care (01) ==
LOC: ED 14:28 → AC 15:23
PROVIDERS: Admitting Provider Internal Medicine; Emergency Provider Emergency Medicine; PCP Student in an Organized Health Care Education/Training Program; Referring Provider Emergency Medicine; Visit Provider Internal Medicine
DX: M94.0 Chondrocostal junction syndrome [Tietze] (principal); E86.1 Hypovolemia; I95.9 Hypotension, unspecified; E11.9 Type 2 diabetes mellitus without complications; I25.10 Atherosclerotic heart disease of native coronary artery without angina pectoris; Z79.84 Long term (current) use of oral hypoglycemic drugs
CPT/HCPCS: 36415; 71045; 80048; 80053; 80061; 81001; 82550; 82962; 83036; 83690; 83880; 84443; 84484; 85025; 85379; 87086; 93005; 93307; 96361; 96374; 96375; 96376; 99284; G0378; J1170; J2270; Q9957

== ENCOUNTER 2023-10-23 09:41 | Emergency (ER) | payer MEDICARE, OTHER, SELFPAY ==
[2023-09-15 15:49] VITALS: BMI 30.7
[2023-10-23] VITALS (17 sets, daily range): BP systolic 84–112; BP diastolic 52–65; PULSE 77–100; RESP 10–28; TEMP 36.6; O2SAT 96–98; BMI 30.9
--- NOTE | 2023-10-23 09:49 | EKG_ITS ---
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
--- NOTE | 2023-10-23 09:51 | ED_ITS ---
HPI - General Adult General Chief complaint: Chest Pain Stated complaint: diabetic problem, chest pain Time Seen by Provider: 10/23/23 09:46 Source: patient Mode of arrival: Ambulatory Limitations: no limitations History of Present Illness HPI narrative: Patient is a 68-year-old male. Has a history of gastric bypass. Has a aua-pzftwsn-[id number] diabetic. Is here for evaluation of chest discomfort. Over the past several years he has had occasional episodes with the same discomfort that he presents with today. According to his medical record has had a pretty extensive workup to include a cardiac catheterization which showed nonocclusive coronary artery disease. Has had multiple stress test. Has been diagnosed with costochondritis in the past. He states that he was having the same discomfort today that he has had in the past. His most recent workup was in September of this year. He states that a specific diagnosis has never been made for his chest discomfort. The current discomfort started about 1 hour ago. He was driving at the time. It is persistent. Left side of his chest that has not worse with palpation or movement. Has not tried anything for symptoms prior to arrival. Related Data Home Medications Medication Instructions Recorded Confirmed multivitamin 1 tab PO DAILY 09/10/18 09/15/23 fluoxetine 60 mg tablet 60 mg PO DAILY 12/18/20 09/15/23 olanzapine 20 mg tablet 20 mg PO BEDTIME 12/18/20 09/15/23 metformin 1,000 mg tablet 500 mg PO BID 09/15/23 09/15/23 omeprazole 20 mg capsule,delayed 20 mg PO DAILY 09/15/23 09/15/23 release telmisartan 80 1 tab PO DAILY 09/15/23 09/15/23 mg-hydrochlorothiazide 25 mg tablet Previous Rx's Medication Instructions Recorded acetaminophen 325 mg tablet 650 mg (2 x 325 mg) PO Q6H PRN 01/18/23 Fever/Mild Pain (1-3) #50 tabs nitroglycerin 0.4 mg sublingual 0.4 mg sublingual [id number] PRN 01/18/23 tablet (Nitrostat) Chest Pain #30 tabs polyethylene glycol 3350 17 gram 17 gm PO DAILY PRN Constipation 01/18/23 oral powder packet #15 ea isosorbide mononitrate 30 mg 30 mg PO DAILY #30 tabs 01/29/23 tablet,extended release 24 hr hydrocodone 5 mg-acetaminophen 325 1 tab PO Q8H #20 tabs 09/16/23 mg tablet Allergies Allergy/AdvReac Type Severity Reaction Status Date / Time NSAIDS (Non-Steroidal AdvReac Mild CAN TAKE, Verified 07/16/23 11:02 Anti-Inflamma BUT TRIES [NSAIDS (NON-STEROIDAL TO AVOID ANTI-INFLAMMA] R/T GASTRIC BYPASS Review of Systems Review of Systems ROS Unobtainable: All systems reviewed & are unremarkable except as noted in HPI and below Patient History Medical History GERD (gastroesophageal reflux disease) HNP (herniated nucleus pulposus), lumbar History of bleeding ulcers Hypertriglyceridemia Non-insulin dependent type 2 diabetes mellitus HTN (hypertension) Nephrolithiasis Degenerative disc disease Surgical History History of vasectomy History of colonoscopy History of cholecystectomy History of gastric bypass History of cervical spinal surgery Status post lumbar surgery Family History Mother No known health problems Father No known health problems Social History household members: spouse Smoking Status: Former smoker alcohol intake: former Smoking Status: Former smoker tobacco type: cigarettes alcohol intake frequency: holidays/special occasions only Substance Use Type: does not use Exam Initial Vital Signs Initial Vital Signs: Vital Signs Pulse Rate 98 H 10/23/23 09:47 Respiratory Rate 22 10/23/23 09:47 Const General: cooperative, comfortable and No ill appearing HENMT Head: normal to inspection and normocephalic Chest Chest: No crepitus and No tenderness Resp Effort & Inspection: normal respiratory effort Auscultation: clear to auscultation bilaterally Cardio Rate: regular rate Rhythm: regular rhythm Skin General: no rashes or lesions noted Neuro General: patient alert, patient awake and moves all extremities Extrem General: No edema Course Orders Ordered: ED Orders 10/23/23 09:49 EKG-12 Lead Routine 10/23/23 09:53 XR chest 1V Stat 10/23/23 09:57 Complete Blood Count AUTO DIFF Stat Comprehensive Metabolic Panel Stat Lipase Stat Troponin & CK Cardiac Panel Stat 10/23/23 12:05 Troponin & CK Cardiac Panel Stat Discontinued Medications Hydrocodone Bitart/Acetaminophen (Hydrocodone/Acet 5/325 Tablet) 1 tab PO NOW ONE Stop: 10/23/23 10:11 Last Admin: 10/23/23 10:17 Dose: 1 tab Documented By: MANUEL Morphine Sulfate (Morphine 4 Mg/Ml Inj) 4 mg IV NOW ONE Stop: 10/23/23 11:03 Last Admin: 10/23/23 11:11 Dose: 4 mg Documented By: ABEL Vital Signs Vital signs: Vital Signs - 8 hr 10/23/23 09:47 10/23/23 09:48 10/23/23 09:48 Temperature Pulse Rate 98 H 100 H Respiratory Rate 22 28 H Blood Pressure 111/59 L Pulse Oximetry 97 Oxygen Delivery Method 10/23/23 09:55 10/23/23 10:00 10/23/23 10:00 Temperature 98 F Pulse Rate 99 H 92 H Respiratory Rate 16 28 H Blood Pressure 111/59 L 100/61 Pulse Oximetry 97 98 Oxygen Delivery Method Room Air 10/23/23 10:30 10/23/23 10:30 10/23/23 10:35 Temperature Pulse Rate 81 82 Respiratory Rate 16 16 Blood Pressure 89/53 L Pulse Oximetry 97 98 Oxygen Delivery Method Room Air 10/23/23 10:36 10/23/23 10:36 10/23/23 11:00 Temperature Pulse Rate 82 Respiratory Rate 23 Blood Pressure 92/56 L 93/56 L Pulse Oximetry 98 Oxygen Delivery Method 10/23/23 11:00 10/23/23 11:14 10/23/23 11:14 Temperature Pulse Rate 79 78 Respiratory Rate 13 15 Blood Pressure 95/56 L Pulse Oximetry 97 97 Oxygen Delivery Method 10/23/23 11:15 10/23/23 11:15 10/23/23 11:18 Temperature Pulse Rate 80 Respiratory Rate 14 Blood Pressure 103/58 L 112/65 Pulse Oximetry 98 Oxygen Delivery Method 10/23/23 11:18 10/23/23 11:30 10/23/23 11:30 Temperature Pulse Rate 83 79 Respiratory Rate 10 L 10 L Blood Pressure 84/54 L Pulse Oximetry 97 96 Oxygen Delivery Method 10/23/23 11:31 10/23/23 11:31 10/23/23 12:00 Temperature Pulse Rate 80 Respiratory Rate 17 Blood Pressure 96/57 L 89/55 L Pulse Oximetry 97 Oxygen Delivery Method 10/23/23 12:00 10/23/23 12:03 10/23/23 12:04 Temperature Pulse Rate 78 80 Respiratory Rate 12 15 Blood Pressure 98/55 L Pulse Oximetry 97 97 Oxygen Delivery Method Room Air Medical Decision Making Medical Records Medical records reviewed: Yes I reviewed the patient's medical records. Lab Data Lab results reviewed: Yes I reviewed the patient's lab results. 10/23/23 09:57 10/23/23 09:57 Labs: Lab Results 10/23/23 10/23/23 Range/Units 09:57 12:05 WBC 8.2 (4.5-11.0) X10^3/uL RBC 3.39 L (4.5-5.9) X10^6/uL Hgb 9.6 L (13.5-17.5) g/dL Hct 29.7 L (41-53) % MCV 87.4 (80-100) fL MCH 28.3 (26-34) PG MCHC 32.4 (30-36) % RDW 15.9 H (11.6-14.8) % Plt Count 272 (150-400) X10^3/uL Neut % (Auto) 72.3 (50-75) % Lymph % (Auto) 18.4 L (25-40) % [place] % (Auto) 8.7 (3-14) % Eos % (Auto) 0.3 L (2-4) % Baso % (Auto) 0.3 (0-2) % Neut # (Auto) 5900 (6504-9777) /uL Lymph # (Auto) 1500 (3515-8147) /uL [place] # (Auto) 700 (0-900) /uL Eos # (Auto) 0 (0-450) /uL Baso # (Auto) 0 (0-100) /uL Sodium 138 (137-145) mmol/L Potassium 4.1 (3.4-5.1) mmol/L Chloride 106 (98-107) mmol/L Carbon Dioxide 20 L (22-32) mmol/L BUN 31 H (9-20) mg/dL Creatinine 1.50 H (0.66-1.25) mg/dL Estimated GFR 50 L (>60) mL/min BUN/Creatinine Ratio 20.7 (6-22) Glucose 104 (80-110) mg/dL Calcium 9.8 (8.4-10.2) mg/dL Total Bilirubin 0.5 (0.2-1.3) mg/dL AST 24 (17-59) IU/L ALT 20 (<50) IU/L Alkaline Phosphatase 108 (38-126) U/L Total Creatine Kinase 118 104 (55-170) U/L Troponin I < 0.012 < 0.012 (0.01-0.034) ng/mL Total Protein 6.8 (6.3-8.2) g/dL Albumin 4.1 (3.5-5.0) g/dL Globulin 2.7 (1.7-4.1) g/dL Albumin/Globulin Ratio 1.5 (1.0-2.8) Lipase 39 (23-300) U/L Point of Care Testing Glucose POC 89 Point of care testing: Point of Care Testing Glucose POC 89 Imaging Data Chest x-ray: Radiologist's Impression: PROCEDURE: XR CHEST 1V INDICATIONS: Chest pain TECHNIQUE: One view of the chest was acquired. COMPARISON: Located Within [facility], CR, XR CHEST 1V, 09/15/2023, 11:07. Located Within [facility], CR, XR CHEST 1V, 07/16/2023, 11:07. FINDINGS: Surgical changes and devices: None. Lungs and pleura: Lungs are clear. No pleural effusions or pneumothorax. Mediastinum: Mediastinal contours appear normal. Heart size is normal. Bones and chest wall: No suspicious bony lesions. Overlying soft tissues appear unremarkable. IMPRESSION: No acute cardiopulmonary abnormality is seen. Mildly reduced inspiratory volume. ECG Data Attestation: I personally reviewed and interpreted this ECG as follows: Interpretation: Sinus rhythm Ventricular rate 95 Left axis deviation Normal QRS Normal QTC No ST T wave changes MDM Narrative Medical decision making narrative: Patient has had a very extensive workup in the past several months for chest discomfort. He stated that the discomfort that he was having today is very similar to what he has had in the past. Has had 2- troponins. A nonischemic EKG. Chest x-ray is unremarkable. I have low suspicion that this is his heart. Low suspicion for pulmonary embolism. No indication for antibiotics. No indication for admission to the hospital as he was recently had cardiac workup. Did discuss the possibility of a GI source. Advised that he talk with his primary doctor about referral to see GI. Patient expressed understanding and agreement with the plan. Discharge Plan Departure Patient Disposition: Home Clinical Impression: Atypical chest pain Instructions: DI for Atypical Chest Pain Activity Restrictions/Additional Instructions: Continue to take all of your medications as directed. I do recommend that you talk with your primary doctor about the indications for referral to see Gastroenterology. Return to the emergency department for new symptoms. Prescriptions: No Action acetaminophen 325 mg Tablet 650 mg PO Q6H PRN (Reason: Fever/Mild Pain (1-3)) Qty: 50 0RF polyethylene glycol 3350 17 gram Powder In Packet 17 gm PO DAILY PRN (Reason: Constipation) Qty: 15 0RF nitroglycerin [Nitrostat] 0.4 mg Tablet, Sublingual 0.4 mg sublingual [id number] PRN (Reason: Chest Pain) Qty: 30 0RF isosorbide mononitrate 30 mg Tablet Extended Release 24 Hr 30 mg PO DAILY Qty: 30 0RF omeprazole 20 mg Capsule,Delayed Release(Dr/Ec) 20 mg PO DAILY telmisartan-hydrochlorothiazid 80-25 mg tablet 1 tab PO DAILY metformin 1,000 mg tablet 500 mg PO BID hydrocodone-acetaminophen 5-325 mg tablet 1 tab PO Q8H Qty: 20 0RF multivitamin Tablet 1 tab PO DAILY olanzapine 20 mg tablet 20 mg PO BEDTIME Patient Comments: take 1 tablet by mouth at bedtime fluoxetine 60 mg tablet 60 mg PO DAILY Patient Comments: take 1 tablet by mouth once daily Referrals: Shin José PA-C [Primary Care Provider] - Stand Alone Forms: Patient Portal/API
--- NOTE | 2023-10-23 09:53 | DI.RAD.S_ITS ---
PROCEDURE: XR CHEST 1V INDICATIONS: Chest pain TECHNIQUE: One view of the chest was acquired. COMPARISON: [facility], CR, XR CHEST 1V, 09/15/2023, 11:07. [facility], CR, XR CHEST 1V, 07/16/2023, 11:07. FINDINGS: Surgical changes and devices: None. Lungs and pleura: Lungs are clear. No pleural effusions or pneumothorax. Mediastinum: Mediastinal contours appear normal. Heart size is normal. Bones and chest wall: No suspicious bony lesions. Overlying soft tissues appear unremarkable. IMPRESSION: No acute cardiopulmonary abnormality is seen. Mildly reduced inspiratory volume. Dictated by: Aelx Romero M.D. on 10/23/2023 at 10:29 Approved by: Alex Romero M.D. on 10/23/2023 at 10:30
[2023-10-23 10:13] LABS: Add Manual Diff / Slide Review NO; Basophils Absolute Auto 0 /uL (0-100); Basophils Percent Auto 0.3 % (0-2); Eosinophils Absolute Auto 0 /uL (0-450); Eosinophils Percent Auto 0.3 % (2-4); Hematocrit 29.7 % (41-53); Hemoglobin 9.6 g/dL (13.5-17.5); Lymphocytes Absolute Auto 1500 /uL (1100-4500); Lymphocytes Percent Auto 18.4 % (25-40); Mean Corpuscular HGB Conc 32.4 % (30-36); Mean Corpuscular Hemoglobin 28.3 PG (26-34); Mean Corpuscular Volume 87.4 fL (80-100); Monocytes Absolute Auto 700 /uL (0-900); Monocytes Percent Auto 8.7 % (3-14); Neutrophils Absolute Auto 5900 /uL (1500-7000); Neutrophils Percent Auto 72.3 % (50-75); Platelet Count 272 X10^3/uL (150-400); Red Blood Cell Count 3.39 X10^6/uL (4.5-5.9); Red Cell Distribution Width 15.9 % (11.6-14.8); White Blood Cell Count 8.2 X10^3/uL (4.5-11.0)
[2023-10-23] MEDS: HYDROCODONE/ACET 5/325 TABLET 1 TAB PO (10:17)
[2023-10-23 10:20] LABS: Alanine Aminotransferase 20 IU/L (<50); Albumin 4.1 g/dL (3.5-5.0); Albumin Globulin Ratio 1.5 (1.0-2.8); Alkaline Phosphatase 108 U/L (38-126); Aspartate Aminotransferase 24 IU/L (17-59); BUN Creatinine Ratio 20.7 (6-22); Bilirubin Total 0.5 mg/dL (0.2-1.3); Blood Urea Nitrogen 31 mg/dL (9-20); Calcium 9.8 mg/dL (8.4-10.2); Carbon Dioxide 20 mmol/L (22-32); Chloride 106 mmol/L (98-107); Creatine Kinase 118 U/L (55-170); Estimated Glomerular Filt Rate 50 mL/min (>60); Globulin 2.7 g/dL (1.7-4.1); Glucose 104 mg/dL (80-110); HEMOLYSIS < 15 (0-50); Lipase 39 U/L (23-300); Potassium 4.1 mmol/L (3.4-5.1); Sodium 138 mmol/L (137-145); Total Protein 6.8 g/dL (6.3-8.2)
[2023-10-23 10:33] LABS: Troponin I < 0.012 ng/mL (0.01-0.034)
[2023-10-23] MEDS: MORPHINE 4 MG/ML INJ IV (11:11)
[2023-10-23 12:25] LABS: Creatine Kinase 104 U/L (55-170)
[2023-10-23 12:38] LABS: Troponin I < 0.012 ng/mL (0.01-0.034)
== END 2023-10-23 12:58 | disposition home or self-care (01) ==
PROVIDERS: Emergency Provider Emergency Medicine; PCP Student in an Organized Health Care Education/Training Program
DX: R07.89 Other chest pain (principal)
CPT/HCPCS: 36415; 71045; 80053; 82550; 82962; 83690; 84484; 85025; 93005; 93010; 96374; 99284; J2270

== ENCOUNTER 2023-10-27 05:18 | Inpatient (IN) | payer MEDICARE, OTHER, SELFPAY ==
[2023-09-15 15:49] VITALS: BMI 30.7
[2023-10-27] VITALS (64 sets, daily range): BP systolic 81–132; BP diastolic 50–77; PULSE 60–103; RESP 4–25; TEMP 36.3–37.2; O2SAT 85–100; BMI 30.7
--- NOTE | 2023-10-27 05:33 | ED_ITS ---
HPI - Abdominal Pain <Erinmateo RodDO - Last Filed: 10/28/23 06:06> General Chief Complaint: Abdominal Pain Stated Complaint: abd pain Time Seen by Provider: 10/27/23 05:33 Source: patient Mode of arrival: Ambulatory History of Present Illness HPI narrative: 68-year-old male with coronary artery disease, former smoker, former alcohol use, depression, hyperlipidemia, diabetes, reflux, chronic anemia with prior gastric bypass complications who had to have repair, peptic ulcer disease with prior bleeding ulcers. Patient is on an aspirin daily. Patient presents with complaint of periumbilical pain for the past 3-4 days. States it started on Thursday. Patient states pain radiated once or twice his back but not persistently. Has not changed location otherwise. He has had nausea but no vomiting. States he has had diarrhea once or twice daily since, he did not strike it as black. Patient states no urinary symptoms. He has felt lightheaded has not had any syncope. He feels lightheaded when he is upright. States he has been taking Tums at home to try to control his symptoms but has not been working. Ultimately decided to present for his symptoms. Patient states he avoids NSAIDs due to his gastric bypass. Is on medication for hypertension, GERD, diabetes, coronary artery disease. 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 Former smoker, occasional alcohol, no recreational drugs. Dr. José is his primary care physician. Related Data Home Medications Medication Instructions Recorded Confirmed multivitamin 1 tab PO DAILY 09/10/18 10/27/23 fluoxetine 60 mg tablet 60 mg PO DAILY 12/18/20 10/27/23 olanzapine 20 mg tablet 20 mg PO BEDTIME 12/18/20 10/27/23 metformin 1,000 mg tablet 500 mg PO BID 09/15/23 10/27/23 omeprazole 20 mg capsule,delayed 20 mg PO DAILY 09/15/23 10/27/23 release telmisartan 80 1 tab PO DAILY 09/15/23 10/27/23 mg-hydrochlorothiazide 25 mg tablet Previous Rx's Medication Instructions Recorded acetaminophen 325 mg tablet 650 mg (2 x 325 mg) PO Q6H PRN 01/18/23 Fever/Mild Pain (1-3) #50 tabs nitroglycerin 0.4 mg sublingual 0.4 mg sublingual [id number] PRN 01/18/23 tablet (Nitrostat) Chest Pain #30 tabs polyethylene glycol 3350 17 gram 17 gm PO DAILY PRN Constipation 01/18/23 oral powder packet #15 ea isosorbide mononitrate 30 mg 30 mg PO DAILY #30 tabs 01/29/23 tablet,extended release 24 hr hydrocodone 5 mg-acetaminophen 325 1 tab PO Q8H #20 tabs 09/16/23 mg tablet Allergies Allergy/AdvReac Type Severity Reaction Status Date / Time NSAIDS (Non-Steroidal AdvReac Mild CAN TAKE, Verified 07/16/23 11:02 Anti-Inflamma BUT TRIES [NSAIDS (NON-STEROIDAL TO AVOID ANTI-INFLAMMA] R/T GASTRIC BYPASS Review of Systems <Erin Rod DO - Last Filed: 10/28/23 06:06> Review of Systems ROS Unobtainable: All systems reviewed & are unremarkable except as noted in HPI and below Patient History <Erin Rod DO - Last Filed: 10/28/23 06:06> Medical History GERD (gastroesophageal reflux disease) HNP (herniated nucleus pulposus), lumbar History of bleeding ulcers Hypertriglyceridemia Non-insulin dependent type 2 diabetes mellitus HTN (hypertension) Nephrolithiasis Degenerative disc disease Surgical History History of vasectomy History of colonoscopy History of cholecystectomy History of gastric bypass History of cervical spinal surgery Status post lumbar surgery Family History Mother No known health problems Father No known health problems Social History household members: spouse and family Smoking Status: Former smoker alcohol intake: former Smoking Status: Former smoker tobacco type: cigarettes alcohol intake frequency: holidays/special occasions only Substance Use Type: does not use Exam <Erin Rod DO - Last Filed: 10/28/23 06:06> Narrative Exam Narrative: GENERAL: Alert and oriented x three, pale male in moderate distress. HEENT: Head normocephalic, atraumatic, EOMI, pupils reactive, pale conjunctiva, face symmetric, moist mucous membranes NECK: Supple, full range of motion CARDIOVASCULAR: Slightly tachycardic but regular rate and rhythm without murmurs, rubs or gallops. No JVD. No edema bilateral lower extremities. RESPIRATORY: Breath sounds equal bilaterally, no wheezes rales or rhonchi. No tachypnea or accessory muscle use. ABDOMEN: Soft, patient has a lower abdominal tenderness left greater than right. Normoactive bowel sounds all 4 quadrants. No guarding or rebound, rigidity, no mass, pulsatile mass or bruit noted. : No CVA tenderness EXTREMITIES: Normal range of motion, no clubbing or edema. Neurovascularly intact NEUROLOGICAL: Cranial nerves II through XII grossly intact. Moving all extremities SKIN: Warm, dry, no petechiae, no rashes or lesions. Initial Vital Signs Initial Vital Signs: Vital Signs Temperature 97.8 F 10/27/23 05:22 Pulse Rate 103 H 10/27/23 05:22 Respiratory Rate 16 10/27/23 05:22 Blood Pressure 81/56 L 10/27/23 05:22 Pulse Oximetry 99 10/27/23 05:22 Oxygen Delivery Method Room Air 10/27/23 05:22 <Sofia Vences DO - Last Filed: 10/27/23 14:51> Initial Vital Signs Initial Vital Signs: Vital Signs Temperature 97.8 F 10/27/23 05:22 Pulse Rate 103 H 10/27/23 05:22 Respiratory Rate 16 10/27/23 05:22 Blood Pressure 81/56 L 10/27/23 05:22 Pulse Oximetry 99 10/27/23 05:22 Oxygen Delivery Method Room Air 10/27/23 05:22 Course <Erin Rod DO - Last Filed: 10/28/23 06:06> Orders Ordered: Acetaminophen (Acetaminophen 325 Mg Tablet) 650 mg PO Q6H PRN PRN Reason: Fever/Mild Pain (1-3) Hydrocodone Bitart/Acetaminophen (Hydrocodone/Acet 5/325 Tablet) 1 tab PO Q8H [facility] Last Admin: 10/27/23 23:13 Dose: 1 tab Documented By: Admin: 10/27/23 15:47 Dose: 1 tab Documented By: ANA Fluoxetine HCl (Fluoxetine 20 Mg Capsule) 60 mg PO DAILY [facility] Hydromorphone HCl (Hydromorphone 0.5 Mg Inj) 1 mg IV Q2H PRN PRN Reason: Pain, Severe (7-10) Last Admin: 10/27/23 19:58 Dose: 1 mg Documented By: Admin: 10/27/23 16:24 Dose: 1 mg Documented By: Admin: 10/27/23 13:53 Dose: 1 mg Documented By: TLS Sodium Chloride (Normal Saline 0.9%) 1,000 mls @ 75 mls/hr IV CONT [facility] Last Admin: 10/27/23 12:46 Dose: 75 mls/hr Documented By: TLS Dextrose (D10w) 100 mls @ 999 mls/hr IV PRN PRN PRN Reason: Hypoglycemia Insulin Human Lispro (Insulin Lispro 100 Unit/Ml 3ml Vial) 0 unit SUBCUT ACHS [facility]; Protocol Last Admin: 10/27/23 21:32 Dose: Not Given Documented By: Admin: 10/27/23 16:47 Dose: Not Given Documented By: ANA Naloxone HCl (Naloxone 0.4 Mg/Ml Vial) 0.2 mg IV Q2MIN PRN PRN Reason: Opiate Reversal Olanzapine (Olanzapine 2.5 Mg Tablet) 20 mg PO BEDTIME [facility] Last Admin: 10/27/23 21:32 Dose: 20 mg Documented By: Ondansetron HCl (Ondansetron 4 Mg/2 Ml Inj) 4 mg IV Q8HR PRN PRN Reason: Nausea And Vomiting Pantoprazole Sodium (Pantoprazole 40 Mg Vial) 40 mg IV BID [facility] Last Admin: 10/27/23 21:33 Dose: 40 mg Documented By: Discontinued Medications Fentanyl (Fentanyl 100 Mcg/2 Ml Inj) 50 mcg IV NOW ONE Stop: 10/27/23 06:20 Last Admin: 10/27/23 06:27 Dose: 50 mcg Documented By: VIOLA Hydromorphone HCl (Hydromorphone 0.5 Mg Inj) 0.5 mg IV NOW ONE Stop: 10/27/23 08:09 Last Admin: 10/27/23 08:40 Dose: 0.5 mg Documented By: SAADIA Hydromorphone HCl (Hydromorphone 0.5 Mg Inj) 0.5 mg IV Q2H PRN PRN Reason: Pain, Severe (7-10) Last Admin: 10/27/23 12:44 Dose: 0.5 mg Documented By: HOSSEIN Sodium Chloride (Normal Saline 0.9%) 1,000 mls @ 500 mls/hr IV BOLUS ONE Stop: 10/27/23 07:37 Last Infusion: 10/27/23 08:34 Dose: Infused Documented By: Admin: 10/27/23 06:27 Dose: 500 mls/hr Documented By: VIOLA Acetaminophen (Ofirmev) 1,000 mg in 100 mls @ 400 mls/hr IV NOW ONE Stop: 10/27/23 08:17 Last Infusion: 10/27/23 08:34 Dose: Infused Documented By: Admin: 10/27/23 08:07 Dose: 400 mls/hr Documented By: SAADIA Sodium Chloride (Normal Saline 0.9%) 1,000 mls @ 1,000 mls/hr IV BOLUS ONE Stop: 10/27/23 09:07 Last Infusion: 10/27/23 09:41 Dose: Infused Documented By: [facility] Admin: 10/27/23 08:40 Dose: 1,000 mls/hr Documented By: SAADIA Ondansetron HCl (Ondansetron 4 Mg/2 Ml Inj) 4 mg IV NOW ONE Stop: 10/27/23 05:39 Last Admin: 10/27/23 06:26 Dose: 4 mg Documented By: VIOLA Pantoprazole Sodium (Pantoprazole 40 Mg Vial) 80 mg IV NOW ONE Stop: 10/27/23 05:45 Last Admin: 10/27/23 06:26 Dose: 80 mg Documented By: VIOLA Vital Signs Vital signs: Vital Signs - 8 hr 10/27/23 07:00 10/27/23 07:11 10/27/23 07:11 Temperature Pulse Rate 94 H 95 H Respiratory Rate 13 Blood Pressure 113/61 Pulse Oximetry 98 99 Oxygen Delivery Method Room Air 10/27/23 07:30 10/27/23 08:00 10/27/23 08:09 Temperature Pulse Rate 93 H 92 H 94 H Respiratory Rate 14 12 12 Blood Pressure Pulse Oximetry 98 98 99 Oxygen Delivery Method Room Air 10/27/23 08:09 10/27/23 08:20 10/27/23 08:20 Temperature Pulse Rate 87 Respiratory Rate 10 L Blood Pressure 112/73 119/72 Pulse Oximetry 98 Oxygen Delivery Method 10/27/23 08:30 10/27/23 08:40 10/27/23 08:40 Temperature Pulse Rate 91 H 90 Respiratory Rate 18 20 Blood Pressure 106/58 L Pulse Oximetry 99 98 Oxygen Delivery Method Room Air 10/27/23 08:53 10/27/23 08:53 10/27/23 09:00 Temperature Pulse Rate 86 85 Respiratory Rate 17 17 Blood Pressure 103/57 L Pulse Oximetry 97 98 Oxygen Delivery Method 10/27/23 09:00 10/27/23 09:02 10/27/23 09:02 Temperature Pulse Rate 87 Respiratory Rate 25 H Blood Pressure 84/50 L 103/58 L Pulse Oximetry 98 Oxygen Delivery Method Room Air 10/27/23 09:30 10/27/23 09:33 10/27/23 09:33 Temperature Pulse Rate 76 76 Respiratory Rate 12 13 Blood Pressure 95/57 L Pulse Oximetry 100 100 Oxygen Delivery Method 10/27/23 09:40 10/27/23 09:40 10/27/23 09:50 Temperature Pulse Rate 77 76 Respiratory Rate 12 Blood Pressure 102/58 L Pulse Oximetry 98 98 Oxygen Delivery Method Room Air 10/27/23 09:50 10/27/23 10:00 10/27/23 10:00 Temperature Pulse Rate 79 Respiratory Rate 12 Blood Pressure 95/54 L 87/50 L Pulse Oximetry 98 Oxygen Delivery Method Room Air 10/27/23 10:02 10/27/23 10:02 10/27/23 10:05 Temperature Pulse Rate 79 Respiratory Rate 17 Blood Pressure 85/55 L 95/59 L Pulse Oximetry 100 Oxygen Delivery Method 10/27/23 10:05 10/27/23 10:10 10/27/23 10:10 Temperature Pulse Rate 79 72 Respiratory Rate 16 Blood Pressure 103/55 L Pulse Oximetry 99 99 Oxygen Delivery Method Room Air 10/27/23 10:15 10/27/23 10:15 10/27/23 10:20 Temperature Pulse Rate 74 75 Respiratory Rate 12 11 L Blood Pressure 97/57 L Pulse Oximetry 100 100 Oxygen Delivery Method Room Air 10/27/23 10:20 10/27/23 10:21 10/27/23 10:25 Temperature 98.2 F Pulse Rate 74 73 Respiratory Rate 14 Blood Pressure 100/56 L 100/56 L Pulse Oximetry 100 Oxygen Delivery Method 10/27/23 10:25 Temperature Pulse Rate Respiratory Rate Blood Pressure 92/53 L Pulse Oximetry Oxygen Delivery Method <DO Ezra Vidales Filed: 10/27/23 14:51> Orders Ordered: Acetaminophen (Acetaminophen 325 Mg Tablet) 650 mg PO Q6H PRN PRN Reason: Fever/Mild Pain (1-3) Hydrocodone Bitart/Acetaminophen (Hydrocodone/Acet 5/325 Tablet) 1 tab PO Q8H [facility] Last Admin: 10/27/23 23:13 Dose: 1 tab Documented By: Admin: 10/27/23 15:47 Dose: 1 tab Documented By: ANA Fluoxetine HCl (Fluoxetine 20 Mg Capsule) 60 mg PO DAILY [facility] Hydromorphone HCl (Hydromorphone 0.5 Mg Inj) 1 mg IV Q2H PRN PRN Reason: Pain, Severe (7-10) Last Admin: 10/27/23 19:58 Dose: 1 mg Documented By: Admin: 10/27/23 16:24 Dose: 1 mg Documented By: Admin: 10/27/23 13:53 Dose: 1 mg Documented By: TLS Sodium Chloride (Normal Saline 0.9%) 1,000 mls @ 75 mls/hr IV CONT [facility] Last Admin: 10/27/23 12:46 Dose: 75 mls/hr Documented By: TLS Dextrose (D10w) 100 mls @ 999 mls/hr IV PRN PRN PRN Reason: Hypoglycemia Insulin Human Lispro (Insulin Lispro 100 Unit/Ml 3ml Vial) 0 unit SUBCUT ACHS [facility]; Protocol Last Admin: 10/27/23 21:32 Dose: Not Given Documented By: Admin: 10/27/23 16:47 Dose: Not Given Documented By: ANA Naloxone HCl (Naloxone 0.4 Mg/Ml Vial) 0.2 mg IV Q2MIN PRN PRN Reason: Opiate Reversal Olanzapine (Olanzapine 2.5 Mg Tablet) 20 mg PO BEDTIME [facility] Last Admin: 10/27/23 21:32 Dose: 20 mg Documented By: Ondansetron HCl (Ondansetron 4 Mg/2 Ml Inj) 4 mg IV Q8HR PRN PRN Reason: Nausea And Vomiting Pantoprazole Sodium (Pantoprazole 40 Mg Vial) 40 mg IV BID [facility] Last Admin: 10/27/23 21:33 Dose: 40 mg Documented By: Discontinued Medications Fentanyl (Fentanyl 100 Mcg/2 Ml Inj) 50 mcg IV NOW ONE Stop: 10/27/23 06:20 Last Admin: 10/27/23 06:27 Dose: 50 mcg Documented By: VIOLA Hydromorphone HCl (Hydromorphone 0.5 Mg Inj) 0.5 mg IV NOW ONE Stop: 10/27/23 08:09 Last Admin: 10/27/23 08:40 Dose: 0.5 mg Documented By: SAADIA Hydromorphone HCl (Hydromorphone 0.5 Mg Inj) 0.5 mg IV Q2H PRN PRN Reason: Pain, Severe (7-10) Last Admin: 10/27/23 12:44 Dose: 0.5 mg Documented By: TLS Sodium Chloride (Normal Saline 0.9%) 1,000 mls @ 500 mls/hr IV BOLUS ONE Stop: 10/27/23 07:37 Last Infusion: 10/27/23 08:34 Dose: Infused Documented By: Admin: 10/27/23 06:27 Dose: 500 mls/hr Documented By: VIOLA Acetaminophen (Ofirmev) 1,000 mg in 100 mls @ 400 mls/hr IV NOW ONE Stop: 10/27/23 08:17 Last Infusion: 10/27/23 08:34 Dose: Infused Documented By: Admin: 10/27/23 08:07 Dose: 400 mls/hr Documented By: SPF Sodium Chloride (Normal Saline 0.9%) 1,000 mls @ 1,000 mls/hr IV BOLUS ONE Stop: 10/27/23 09:07 Last Infusion: 10/27/23 09:41 Dose: Infused Documented By: Admin: 10/27/23 08:40 Dose: 1,000 mls/hr Documented By: SPF Ondansetron HCl (Ondansetron 4 Mg/2 Ml Inj) 4 mg IV NOW ONE Stop: 10/27/23 05:39 Last Admin: 10/27/23 06:26 Dose: 4 mg Documented By: VIOLA Pantoprazole Sodium (Pantoprazole 40 Mg Vial) 80 mg IV NOW ONE Stop: 10/27/23 05:45 Last Admin: 10/27/23 06:26 Dose: 80 mg Documented By: VIOLA Vital Signs Vital signs: Vital Signs - 8 hr 10/27/23 07:00 10/27/23 07:11 10/27/23 07:11 Temperature Pulse Rate 94 H 95 H Respiratory Rate 13 Blood Pressure 113/61 Pulse Oximetry 98 99 Oxygen Delivery Method Room Air 10/27/23 07:30 10/27/23 08:00 10/27/23 08:09 Temperature Pulse Rate 93 H 92 H 94 H Respiratory Rate 14 12 12 Blood Pressure Pulse Oximetry 98 98 99 Oxygen Delivery Method Room Air 10/27/23 08:09 10/27/23 08:20 10/27/23 08:20 Temperature Pulse Rate 87 Respiratory Rate 10 L Blood Pressure 112/73 119/72 Pulse Oximetry 98 Oxygen Delivery Method 10/27/23 08:30 10/27/23 08:40 10/27/23 08:40 Temperature Pulse Rate 91 H 90 Respiratory Rate 18 20 Blood Pressure 106/58 L Pulse Oximetry 99 98 Oxygen Delivery Method Room Air 10/27/23 08:53 10/27/23 08:53 10/27/23 09:00 Temperature Pulse Rate 86 85 Respiratory Rate 17 17 Blood Pressure 103/57 L Pulse Oximetry 97 98 Oxygen Delivery Method 10/27/23 09:00 10/27/23 09:02 10/27/23 09:02 Temperature Pulse Rate 87 Respiratory Rate 25 H Blood Pressure 84/50 L 103/58 L Pulse Oximetry 98 Oxygen Delivery Method Room Air 10/27/23 09:30 10/27/23 09:33 10/27/23 09:33 Temperature Pulse Rate 76 76 Respiratory Rate 12 13 Blood Pressure 95/57 L Pulse Oximetry 100 100 Oxygen Delivery Method 10/27/23 09:40 10/27/23 09:40 10/27/23 09:50 Temperature Pulse Rate 77 76 Respiratory Rate 12 Blood Pressure 102/58 L Pulse Oximetry 98 98 Oxygen Delivery Method Room Air 10/27/23 09:50 10/27/23 10:00 10/27/23 10:00 Temperature Pulse Rate 79 Respiratory Rate 12 Blood Pressure 95/54 L 87/50 L Pulse Oximetry 98 Oxygen Delivery Method Room Air 10/27/23 10:02 10/27/23 10:02 10/27/23 10:05 Temperature Pulse Rate 79 Respiratory Rate 17 Blood Pressure 85/55 L 95/59 L Pulse Oximetry 100 Oxygen Delivery Method 10/27/23 10:05 10/27/23 10:10 10/27/23 10:10 Temperature Pulse Rate 79 72 Respiratory Rate 16 Blood Pressure 103/55 L Pulse Oximetry 99 99 Oxygen Delivery Method Room Air 10/27/23 10:15 10/27/23 10:15 10/27/23 10:20 Temperature Pulse Rate 74 75 Respiratory Rate 12 11 L Blood Pressure 97/57 L Pulse Oximetry 100 100 Oxygen Delivery Method Room Air 10/27/23 10:20 10/27/23 10:21 10/27/23 10:25 Temperature 98.2 F Pulse Rate 74 73 Respiratory Rate 14 Blood Pressure 100/56 L 100/56 L Pulse Oximetry 100 Oxygen Delivery Method 10/27/23 10:25 Temperature Pulse Rate Respiratory Rate Blood Pressure 92/53 L Pulse Oximetry Oxygen Delivery Method MDM - Abdominal Pain <Erin Rod, DO - Last Filed: 10/28/23 06:06> Lab Data 10/28/23 03:42 10/28/23 03:42 Labs: Lab Results 10/27/23 10/27/23 10/27/23 Range/Units 05:51 06:09 08:17 WBC 12.6 H (4.5-11.0) X10^3/uL RBC 3.41 L (4.5-5.9) X10^6/uL Hgb 9.5 L (13.5-17.5) g/dL Hct 29.5 L (41-53) % MCV 86.6 (80-100) fL MCH 27.8 (26-34) PG MCHC 32.1 (30-36) % RDW 15.5 H (11.6-14.8) % Plt Count 283 (150-400) X10^3/uL Neut % (Auto) 85.9 H (50-75) % Lymph % (Auto) 6.7 L (25-40) % [place] % (Auto) 7.1 (3-14) % Eos % (Auto) 0.0 L (2-4) % Baso % (Auto) 0.3 (0-2) % Neut # (Auto) 34681 H (2803-6478) /uL Lymph # (Auto) 800 L (0777-8886) /uL [place] # (Auto) 900 (0-900) /uL Eos # (Auto) 0 (0-450) /uL Baso # (Auto) 0 (0-100) /uL Sodium 135 L (137-145) mmol/L Potassium 4.1 (3.4-5.1) mmol/L Chloride 99 (98-107) mmol/L Carbon Dioxide 26 (22-32) mmol/L BUN 34 H (9-20) mg/dL Creatinine 1.16 (0.66-1.25) mg/dL Estimated GFR > 60 (>60) mL/min BUN/Creatinine Ratio 29.3 H (6-22) Glucose 220 H D (80-110) mg/dL Lactate 1.5 (0.7-2.1) mmol/L Calcium 11.5 H (8.4-10.2) mg/dL Total Bilirubin 0.9 (0.2-1.3) mg/dL AST 30 (17-59) IU/L ALT 16 (<50) IU/L Alkaline Phosphatase 116 (38-126) U/L Total Creatine Kinase 33 L (55-170) U/L Troponin I < 0.012 (0.01-0.034) ng/mL Total Protein 7.2 (6.3-8.2) g/dL Albumin 4.2 (3.5-5.0) g/dL Globulin 3.0 (1.7-4.1) g/dL Albumin/Globulin Ratio 1.4 (1.0-2.8) Lipase 32 (23-300) U/L Procalcitonin 0.056 (<0.5) ng/mL Ur Bilirubin Confirm Negative (Negative) Blood Type O Positive Antibody Screen Negative Crossmatch See Detail 10/27/23 Range/Units 09:35 WBC (4.5-11.0) X10^3/uL RBC (4.5-5.9) X10^6/uL Hgb 8.1 L (13.5-17.5) g/dL Hct 24.7 L (41-53) % MCV (80-100) fL MCH (26-34) PG MCHC (30-36) % RDW (11.6-14.8) % Plt Count (150-400) X10^3/uL Neut % (Auto) (50-75) % Lymph % (Auto) (25-40) % [place] % (Auto) (3-14) % Eos % (Auto) (2-4) % Baso % (Auto) (0-2) % Neut # (Auto) (5974-1395) /uL Lymph # (Auto) (7802-2505) /uL [place] # (Auto) (0-900) /uL Eos # (Auto) (0-450) /uL Baso # (Auto) (0-100) /uL Sodium (137-145) mmol/L Potassium (3.4-5.1) mmol/L Chloride (98-107) mmol/L Carbon Dioxide (22-32) mmol/L BUN (9-20) mg/dL Creatinine (0.66-1.25) mg/dL Estimated GFR (>60) mL/min BUN/Creatinine Ratio (6-22) Glucose (80-110) mg/dL Lactate (0.7-2.1) mmol/L Calcium (8.4-10.2) mg/dL Total Bilirubin (0.2-1.3) mg/dL AST (17-59) IU/L ALT (<50) IU/L Alkaline Phosphatase (38-126) U/L Total Creatine Kinase (55-170) U/L Troponin I (0.01-0.034) ng/mL Total Protein (6.3-8.2) g/dL Albumin (3.5-5.0) g/dL Globulin (1.7-4.1) g/dL Albumin/Globulin Ratio (1.0-2.8) Lipase (23-300) U/L Procalcitonin (<0.5) ng/mL Ur Bilirubin Confirm (Negative) Blood Type Antibody Screen Crossmatch Point of care testing: Urine Dip Bedside Urine Glucose Negative Bedside Urine Bilirubin + 1 Bedside Urine Ketone + 15 Urine Specific [place] 1.015 Bedside Urine Occult Blood - Negative Bedside Urine pH 5.5 Bedside Urine Protein - Negative Bedside Urine Urobilinogen - Negative Bedside Urine Nitrite - Negative Bedside Urine Leukocytes - Negative Esterase ECG Data Attestation: I personally reviewed and interpreted this ECG as follows: Prior ECG tracings: available for review Interpretation: Sinus rhythm premature atrial complexes, incomplete right bundle, left anterior fascicular block, left ventricular hypertrophy with a rate of 97 CO 140 QRS of [address]TC [address] No acute [address] elevation depression noted. Patient has prior from 10/23/2023 which appears similar. No acute ST changes. MDM Narrative Medical decision making narrative: 68-year-old male with history of chest and abdominal pain with recurrent visits patient is tachycardic hypotensive he appears quite pale, he notes melanotic stools recently. 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 Also has a history of bleeding ulcers. Patient had labs along with type and screen. Show white count of 12.6 which is elevated from prior, hemoglobin is 9.5, platelets are 283 predominance of neutrophils. Glucose is 220, sodium is 135 potassium 4 1 chloride 99 CO2 is 26 BUN 34 creatinine of 1.16, patient is hypercalcemic at 11.5, LFTs are otherwise negative, troponin is less than 0.012 Patient was tachycardic and hypotensive and procalcitonin and cultures were added on CT abdomen pelvis GI protocol, patient is most tender in the left lower quadrant. Patient was given Protonix, gentle fluids as patient's blood pressure on repeat was 112 systolic but he is continuing to be slightly tachycardic. EKG shows sinus rhythm rate of 97, no acute ST changes Patient received fluids, Protonix 80 mg IV and pain medication. Just went to CT for gi bleed protocal. Patient signed out to Dr. Vences, while awaiting imaging and additional labs. Patient signed out to me by Dr. Rod I have seen evaluated patient myself. He is having quite a bit of abdominal pain. CT angio is not show any active hemorrhage or bleeding but does show diffuse circumferential wall thickening of stomach with adjacent inflammatory changes possibly related to a gastritis. He was also guaiac positive. Blood pressure is noted to be quite labile this has been noted prior admissions in prior visits blood pressure does go into the 80s and back up to 117 it does seem somewhat improved with fluids He was admitted September 14 through September 15 with chest pain and costochondritis he has nonobstructive CAD thought hypotension at that time was due to hypovolemia Who was admitted previously 01/26/2023 through 01/29/2023 for ongoing hypotension during the admission it was thought that hypotension was due to new blood pressure medications Today it is presumed that he has a gastritis he has dark tarry stool he has a abdominal pain guaiac positive. He has mild leukocytosis of 13 he has been given Protonix 80 mg Patient blood pressure continues to drop 87/50 repeat H and H shows no hemoglobin 8.1 hematocrit 24.7 previously 9.5/29.5. He has had at 1.5 L of fluid but this is a little more than dilution. Suspect GI bleed. 10:[address] Bj Tidwell called and reports that probably ulceration and bleeding anastomosis Grey-en-Y. 10:10 Dr. Ferrera updated on patient's symptoms test results reports that he will scope him later this morning and admit to medicine Dr. Webb accepts patient <Sofia Vences, DO - Last Filed: 10/27/23 14:51> Lab Data Labs: Lab Results 10/27/23 10/27/23 10/27/23 Range/Units 05:51 06:09 08:17 WBC 12.6 H (4.5-11.0) X10^3/uL RBC 3.41 L (4.5-5.9) X10^6/uL Hgb 9.5 L (13.5-17.5) g/dL Hct 29.5 L (41-53) % MCV 86.6 (80-100) fL MCH 27.8 (26-34) PG MCHC 32.1 (30-36) % RDW 15.5 H (11.6-14.8) % Plt Count 283 (150-400) X10^3/uL Neut % (Auto) 85.9 H (50-75) % Lymph % (Auto) 6.7 L (25-40) % [place] % (Auto) 7.1 (3-14) % Eos % (Auto) 0.0 L (2-4) % Baso % (Auto) 0.3 (0-2) % Neut # (Auto) 85667 H (1824-7159) /uL Lymph # (Auto) 800 L (7695-6886) /uL [place] # (Auto) 900 (0-900) /uL Eos # (Auto) 0 (0-450) /uL Baso # (Auto) 0 (0-100) /uL Sodium 135 L (137-145) mmol/L Potassium 4.1 (3.4-5.1) mmol/L Chloride 99 (98-107) mmol/L Carbon Dioxide 26 (22-32) mmol/L BUN 34 H (9-20) mg/dL Creatinine 1.16 (0.66-1.25) mg/dL Estimated GFR > 60 (>60) mL/min BUN/Creatinine Ratio 29.3 H (6-22) Glucose 220 H D (80-110) mg/dL Lactate 1.5 (0.7-2.1) mmol/L Calcium 11.5 H (8.4-10.2) mg/dL Total Bilirubin 0.9 (0.2-1.3) mg/dL AST 30 (17-59) IU/L ALT 16 (<50) IU/L Alkaline Phosphatase 116 (38-126) U/L Total Creatine Kinase 33 L (55-170) U/L Troponin I < 0.012 (0.01-0.034) ng/mL Total Protein 7.2 (6.3-8.2) g/dL Albumin 4.2 (3.5-5.0) g/dL Globulin 3.0 (1.7-4.1) g/dL Albumin/Globulin Ratio 1.4 (1.0-2.8) Lipase 32 (23-300) U/L Procalcitonin 0.056 (<0.5) ng/mL Ur Bilirubin Confirm Negative (Negative) Blood Type O Positive Antibody Screen Negative Crossmatch See Detail 10/27/23 Range/Units 09:35 WBC (4.5-11.0) X10^3/uL RBC (4.5-5.9) X10^6/uL Hgb 8.1 L (13.5-17.5) g/dL Hct 24.7 L (41-53) % MCV (80-100) fL MCH (26-34) PG MCHC (30-36) % RDW (11.6-14.8) % Plt Count (150-400) X10^3/uL Neut % (Auto) (50-75) % Lymph % (Auto) (25-40) % [place] % (Auto) (3-14) % Eos % (Auto) (2-4) % Baso % (Auto) (0-2) % Neut # (Auto) (8769-7248) /uL Lymph # (Auto) (4892-1718) /uL [place] # (Auto) (0-900) /uL Eos # (Auto) (0-450) /uL Baso # (Auto) (0-100) /uL Sodium (137-145) mmol/L Potassium (3.4-5.1) mmol/L Chloride (98-107) mmol/L Carbon Dioxide (22-32) mmol/L BUN (9-20) mg/dL Creatinine (0.66-1.25) mg/dL Estimated GFR (>60) mL/min BUN/Creatinine Ratio (6-22) Glucose (80-110) mg/dL Lactate (0.7-2.1) mmol/L Calcium (8.4-10.2) mg/dL Total Bilirubin (0.2-1.3) mg/dL AST (17-59) IU/L ALT (<50) IU/L Alkaline Phosphatase (38-126) U/L Total Creatine Kinase (55-170) U/L Troponin I (0.01-0.034) ng/mL Total Protein (6.3-8.2) g/dL Albumin (3.5-5.0) g/dL Globulin (1.7-4.1) g/dL Albumin/Globulin Ratio (1.0-2.8) Lipase (23-300) U/L Procalcitonin (<0.5) ng/mL Ur Bilirubin Confirm (Negative) Blood Type Antibody Screen Crossmatch Point of care testing: Urine Dip Bedside Urine Glucose Negative Bedside Urine Bilirubin + 1 Bedside Urine Ketone + 15 Urine Specific [place] 1.015 Bedside Urine Occult Blood - Negative Bedside Urine pH 5.5 Bedside Urine Protein - Negative Bedside Urine Urobilinogen - Negative Bedside Urine Nitrite - Negative Bedside Urine Leukocytes - Negative Esterase MDM Narrative Medical decision making narrative: 68-year-old male with history of chest and abdominal pain with recurrent visits patient is tachycardic hypotensive he appears quite pale, he notes melanotic stools recently. 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 Also has a history of bleeding ulcers. Patient had labs along with type and screen. Show white count of 12.6 which is elevated from prior, hemoglobin is 9.5, platelets are 283 predominance of neutrophils. Glucose is 220, sodium is 135 potassium 4 1 chloride 99 CO2 is 26 BUN 34 creatinine of 1.16, patient is hypercalcemic at 11.5, LFTs are otherwise negative, troponin is less than 0.012 Patient was tachycardic and hypotensive and procalcitonin and cultures were added on CT abdomen pelvis GI protocol, patient is most tender in the left lower quadrant. Patient was given Protonix, gentle fluids as patient's blood pressure on repeat was 112 systolic but he is continuing to be slightly tachycardic. EKG shows sinus rhythm rate of 97, no acute ST changes Patient received fluids, Protonix 80 mg IV and pain medication. Patient signed out to Dr. Vences, while awaiting imaging and additional labs. Patient signed out to me by Dr. Rod I have seen evaluated patient myself. He is having quite a bit of abdominal pain. CT angio is not show any active hemorrhage or bleeding but does show diffuse circumferential wall thickening of stomach with adjacent inflammatory changes possibly related to a gastritis. He was also guaiac positive. Blood pressure is noted to be quite labile this has been noted prior admissions in prior visits blood pressure does go into the 80s and back up to 117 it does seem somewhat improved with fluids He was admitted September 14 through September 15 with chest pain and costochondritis he has nonobstructive CAD thought hypotension at that time was due to hypovolemia Who was admitted previously 01/26/2023 through 01/29/2023 for ongoing hypotension during the admission it was thought that hypotension was due to new blood pressure medications Today it is presumed that he has a gastritis he has dark tarry stool he has a abdominal pain guaiac positive. He has mild leukocytosis of 13 he has been given Protonix 80 mg Patient blood pressure continues to drop 87/50 repeat H and H shows no hemoglobin 8.1 hematocrit 24.7 previously 9.5/29.5. He has had at 1.5 L of fluid but this is a little more than dilution. Suspect GI bleed. 10:[address] Bj Tidwell called and reports that probably ulceration and bleeding anastomosis Grey-en-Y. 10:10 Dr. Ferrera updated on patient's symptoms test results reports that he will scope him later this morning and admit to medicine Dr. Webb accepts patient Critical Care Time <Sofia Vences, DO - Last Filed: 10/27/23 14:51> Critical Care Time Critical Care Time: Yes Total Critical Care Time: 35 Attestation: The high probability of a clinically significant, sudden or life threatening deterioration of the [cardiovascular] system(s) required my full and direct attention, intervention and personal management. The aggregate critical care time was 35 minutes. This time is in addition to time spent performing reported procedures but includes the following: [x] Data Review and interpretation [x] Patient assessment and monitoring of vital signs [x] Documentation [x] Medication orders and management Discharge Plan Departure Patient Disposition: Admitted As Inpatient Clinical Impression: Acute GI bleeding Admit Date/Time: 10/27/23 10:29 Admit Provider: Eddie Webb
--- NOTE | 2023-10-27 05:38 | DI.CT.S_ITS ---
PROCEDURE: CT ANGIO ABD/PEL GI BLEED INDICATIONS: r/o GI bleed, periumbilical pain TECHNIQUE: After the administration of intravenous contrast, 2.5 mm thick sections acquired from the diaphragm to the symphysis. 10 mm maximum-intensity projection (MIP) reformats were then acquired. For radiation dose reduction, the following was used: automated exposure control. COMPARISON: [facility], CT, CT CHEST ABD PEL W CON, 07/16/2023, 12:28. FINDINGS: Image Quality: Diagnostic. Abdominal aorta: No aortic aneurysm or evidence of acute aortic syndrome. Mesenteric arteries: Patent without hemodynamically significant stenosis. Renal arteries: Patent without hemodynamically significant stenosis. OTHER: Lower Chest: [id number] hiatal hernia. Extreme lung bases are clear. Heart size is within normal limits. Minimal pericardial effusion. Liver: No solid mass. Gallbladder: Surgically absent Biliary ducts: No biliary dilation. Pancreas: No ductal dilation. Spleen: Size is within normal limits. Adrenal Glands: No adrenal nodules. Kidneys and Ureters: No hydronephrosis. Nonobstructing 1.3 cm right lower pole renal stone. No renal masses. Ureters are unremarkable. Stomach and Bowel: Remote gastric bypass surgery. There is associated impressive inflammatory change which appears to involve the anastomosis and an efferent loop of jejunum. There is a suggestion of a possible associated ulceration at or just distal to the anastomosis. There is a suggestion of a tiny amount of hemorrhage at the presumed ulceration. Reference axial image 34 of series 4 as well as axial image 49 of series 5. Reference axial images 35 through 53 of series 5. Peritoneum: No abnormal intraperitoneal fluid. No free air. Ventral Wall: Periumbilical hernia containing nonobstructed small bowel. Abdominal Nodes: No retroperitoneal or mesenteric adenopathy by size criteria. Vessels: Aorta and inferior vena cava are normal in size. PELVIS: Pelvic Organs: Moderate prostatomegaly.. Bladder: Unremarkable. Pelvic Nodes: No enlarged lymph nodes. Miscellaneous: No inguinal hernias are seen. Bones: No aggressive osseous abnormality. Remote posterior decompressive laminectomy and posterior lateral filemon and pedicle screw fixation at L4 through S1. IMPRESSION: 1. Remote gastric bypass. 2. At the anastomosis or just distal to the anastomosis there appears to be an ulceration at a loop of attached jejunum. Within this presumed ulceration there appears to be a small amount of hemorrhage. Additionally, there is significant wall thickening consistent with idania-anastomotic jejunitis. 3. Remote cholecystectomy. 4. Mild to moderate hiatal hernia. 5. 1.3 cm nonobstructing right renal stone. 6. Periumbilical hernia containing non obstructed small bowel. 7. Moderate prostatomegaly. Comment: Preliminary interpretation provided by [facility]. Comment: Findings were discussed with Dr. Gardner on 10/27/2023 at 1001 hours Dictated by: Christiano Tidwell M.D. on 10/27/2023 at 9:52 Approved by: Christiano Tidwell M.D. on 10/27/2023 at 10:06
--- NOTE | 2023-10-27 05:40 | DI.RAD.S_ITS ---
PROCEDURE: XR CHEST 1V INDICATIONS: abd pain, melena, hypotension TECHNIQUE: One view of the chest was acquired. COMPARISON: [facility], CT, CT ANGIO ABD/PEL GI BLEED, 10/27/2023, 5:48. [facility], CR, XR CHEST 1V, 10/23/2023, 10:12. FINDINGS: Surgical changes and devices: Lower cervical spine anterior fusion hardware. Lungs and pleura: Lungs are clear. No pleural effusions or pneumothorax. Mediastinum: Mediastinal contours appear normal. Heart size is normal. Bones and chest wall: No suspicious bony lesions. Overlying soft tissues appear unremarkable. Small hiatal hernia is better seen on same day CT. IMPRESSION: No acute cardiopulmonary process. Dictated by: Yolie Lam M.D. on 10/27/2023 at 9:59 Approved by: Yolie Lam M.D. on 10/27/2023 at 10:01
--- NOTE | 2023-10-27 05:47 | EKG_ITS ---
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
[2023-10-27 06:22] LABS: Add Manual Diff / Slide Review NO; Basophils Absolute Auto 0 /uL (0-100); Basophils Percent Auto 0.3 % (0-2); Eosinophils Absolute Auto 0 /uL (0-450); Hematocrit 29.5 % (41-53); Hemoglobin 9.5 g/dL (13.5-17.5); Lymphocytes Absolute Auto 800 /uL (1100-4500); Lymphocytes Percent Auto 6.7 % (25-40); Mean Corpuscular HGB Conc 32.1 % (30-36); Mean Corpuscular Hemoglobin 27.8 PG (26-34); Mean Corpuscular Volume 86.6 fL (80-100); Monocytes Absolute Auto 900 /uL (0-900); Monocytes Percent Auto 7.1 % (3-14); Neutrophils Absolute Auto 10800 /uL (1500-7000); Neutrophils Percent Auto 85.9 % (50-75); Platelet Count 283 X10^3/uL (150-400); Red Blood Cell Count 3.41 X10^6/uL (4.5-5.9); Red Cell Distribution Width 15.5 % (11.6-14.8); White Blood Cell Count 12.6 X10^3/uL (4.5-11.0)
[2023-10-27 06:23] LABS: Lactate (Lactic Acid) 1.5 mmol/L (0.7-2.1)
[2023-10-27 06:25] LABS: Alanine Aminotransferase 16 IU/L (<50); Albumin 4.2 g/dL (3.5-5.0); Albumin Globulin Ratio 1.4 (1.0-2.8); Alkaline Phosphatase 116 U/L (38-126); Aspartate Aminotransferase 30 IU/L (17-59); BUN Creatinine Ratio 29.3 (6-22); Bilirubin Total 0.9 mg/dL (0.2-1.3); Blood Urea Nitrogen 34 mg/dL (9-20); Calcium 11.5 mg/dL (8.4-10.2); Carbon Dioxide 26 mmol/L (22-32); Chloride 99 mmol/L (98-107); Creatine Kinase 33 U/L (55-170); Estimated Glomerular Filt Rate > 60 mL/min (>60); Glucose 220 mg/dL (80-110); HEMOLYSIS 36 (0-50); Lipase 32 U/L (23-300); Potassium 4.1 mmol/L (3.4-5.1); Sodium 135 mmol/L (137-145); Total Protein 7.2 g/dL (6.3-8.2)
[2023-10-27] MEDS: PANTOPRAZOLE 40 MG VIAL 80 MG IV (06:26)
[2023-10-27] MEDS: ONDANSETRON 4 MG/2 ML INJ IV (06:26)
[2023-10-27] MEDS: SODIUM CHLORIDE 0.9% 1,000 ML 500 ML IV (06:27)
[2023-10-27] MEDS: fentaNYL 100 MCG/2 ML INJ 50 MCG IV (06:27)
[2023-10-27 06:36] LABS: Troponin I < 0.012 ng/mL (0.01-0.034)
[2023-10-27 07:34] LABS: Procalcitonin 0.056 ng/mL (<0.5)
[2023-10-27] MEDS: ACETAMINOPHEN IV 1,000 MG/100 ML VIAL 400 MG IV (08:07)
[2023-10-27] MEDS: HYDROMORPHONE 0.5 MG INJ IV ×2 (08:40→12:44)
[2023-10-27] MEDS: SODIUM CHLORIDE 0.9% 1,000 ML 1000 ML IV (08:40)
--- NOTE | 2023-10-27 08:41 | PC.NURSE ---
Right upper arm IV has some swelling, pt denies pain. IV has blood return and flushes well with no complaints of pain at site. IV wrapped with coban.
[2023-10-27 08:53] LABS: Ictotest Urine Negative (Negative)
[2023-10-27 09:57] LABS: Hematocrit 24.7 % (41-53); Hemoglobin 8.1 g/dL (13.5-17.5)
[2023-10-27] MEDS: SODIUM CHLORIDE 0.9% 1,000 ML 75 ML IV (12:46)
--- NOTE | 2023-10-27 13:33 | PM.HP.1 ---
History of Present Illness History of Present Illness Date Patient Seen: 10/27/23 Time Patient Seen: 12:00 Chief complaint: abd pain Narrative: Kristian Yin is a 68yo M with PMH of GERD with gastric ulcer, prior gastric bypass, non-obstructive CAD, HTN, HLD, DM2, depression, chronic anemia, and kidney stones who presented with weakness, melena, and severe abdominal pain. Patient reports melena ongoing for the past two weeks. And increasing sharp and then achy epigastric abdominal pain that is non-radiating. He denies NSAID use, did not trial omeprazole or other antacids. Over the last couple of days he has had a few loose melenotic stools and thought the problem to be slightly worsening since approx. 5 days ago. He denies chest pain, palpitations, shortness of breath. Hg on arrival was similar to prior values, but dropped from approx 9.[address] showed gastric inflammation and possible bleeding from his jose-en-y anastamotic site per radiologist. He was hypotensive, improved with fluids and blood. Admitted for acute blood loss anemia presumed secondray to upper GI bleeding. Discussed with surgery and plan for endoscopy later today. [facility], [facility] Medical History GERD (gastroesophageal reflux disease) HNP (herniated nucleus pulposus), lumbar History of bleeding ulcers Hypertriglyceridemia Non-insulin dependent type 2 diabetes mellitus HTN (hypertension) Nephrolithiasis Degenerative disc disease Surgical History History of vasectomy History of colonoscopy History of cholecystectomy History of gastric bypass History of cervical spinal surgery Status post lumbar surgery Family History Mother No known health problems Father No known health problems Social History household members: spouse and family Smoking Status: Former smoker alcohol intake: former Meds Home Medications and Allergies Home Medications Medication Instructions Recorded Confirmed Type multivitamin 1 tab PO DAILY 09/10/18 10/27/23 History fluoxetine 60 mg tablet 60 mg PO DAILY 12/18/20 10/27/23 History olanzapine 20 mg tablet 20 mg PO BEDTIME 12/18/20 10/27/23 History acetaminophen 325 mg tablet 650 mg (2 x 325 mg) PO Q6H PRN 01/18/23 10/27/23 Rx Fever/Mild Pain (1-3) #50 tabs nitroglycerin 0.4 mg sublingual 0.4 mg sublingual [id number] PRN 01/18/23 10/27/23 Rx tablet (Nitrostat) Chest Pain #30 tabs polyethylene glycol 3350 17 gram 17 gm PO DAILY PRN Constipation 01/18/23 10/27/23 Rx oral powder packet #15 ea isosorbide mononitrate 30 mg 30 mg PO DAILY #30 tabs 01/29/23 10/27/23 Rx tablet,extended release 24 hr metformin 1,000 mg tablet 500 mg PO BID 09/15/23 10/27/23 History omeprazole 20 mg capsule,delayed 20 mg PO DAILY 09/15/23 10/27/23 History release telmisartan 80 1 tab PO DAILY 09/15/23 10/27/23 History mg-hydrochlorothiazide 25 mg tablet hydrocodone 5 mg-acetaminophen 325 1 tab PO Q8H #20 tabs 09/16/23 10/27/23 Rx mg tablet Allergies Allergy/AdvReac Type Severity Reaction Status Date / Time NSAIDS (Non-Steroidal AdvReac Mild CAN TAKE, Verified 07/16/23 11:02 Anti-Inflamma BUT TRIES [NSAIDS (NON-STEROIDAL TO AVOID ANTI-INFLAMMA] R/T GASTRIC BYPASS Review of Systems Review of Systems Narrative: All other systems reviewed with the patient and are negative unless otherwise stated. Exam Vital Signs (past 8 hours): - 10/27/23 07:00 10/27/23 07:11 10/27/23 07:11 Temperature Pulse Rate 94 H 95 H Respiratory Rate 13 Blood Pressure 113/61 Pulse Oximetry 98 99 Oxygen Delivery Method Room Air 10/27/23 07:30 10/27/23 08:00 10/27/23 08:09 Temperature Pulse Rate 93 H 92 H 94 H Respiratory Rate 14 12 12 Blood Pressure Pulse Oximetry 98 98 99 Oxygen Delivery Method Room Air 10/27/23 08:09 10/27/23 08:20 10/27/23 08:20 Temperature Pulse Rate 87 Respiratory Rate 10 L Blood Pressure 112/73 119/72 Pulse Oximetry 98 Oxygen Delivery Method 10/27/23 08:30 10/27/23 08:40 10/27/23 08:40 Temperature Pulse Rate 91 H 90 Respiratory Rate 18 20 Blood Pressure 106/58 L Pulse Oximetry 99 98 Oxygen Delivery Method Room Air 10/27/23 08:53 10/27/23 08:53 10/27/23 09:00 Temperature Pulse Rate 86 85 Respiratory Rate 17 17 Blood Pressure 103/57 L Pulse Oximetry 97 98 Oxygen Delivery Method 10/27/23 09:00 10/27/23 09:02 10/27/23 09:02 Temperature Pulse Rate 87 Respiratory Rate 25 H Blood Pressure 84/50 L 103/58 L Pulse Oximetry 98 Oxygen Delivery Method Room Air 10/27/23 09:30 10/27/23 09:33 10/27/23 09:33 Temperature Pulse Rate 76 76 Respiratory Rate 12 13 Blood Pressure 95/57 L Pulse Oximetry 100 100 Oxygen Delivery Method 10/27/23 09:40 10/27/23 09:40 10/27/23 09:50 Temperature Pulse Rate 77 76 Respiratory Rate 12 Blood Pressure 102/58 L Pulse Oximetry 98 98 Oxygen Delivery Method Room Air 10/27/23 09:50 10/27/23 10:00 10/27/23 10:00 Temperature Pulse Rate 79 Respiratory Rate 12 Blood Pressure 95/54 L 87/50 L Pulse Oximetry 98 Oxygen Delivery Method Room Air 10/27/23 10:02 10/27/23 10:02 10/27/23 10:05 Temperature Pulse Rate 79 Respiratory Rate 17 Blood Pressure 85/55 L 95/59 L Pulse Oximetry 100 Oxygen Delivery Method 10/27/23 10:05 10/27/23 10:10 10/27/23 10:10 Temperature Pulse Rate 79 72 Respiratory Rate 16 Blood Pressure 103/55 L Pulse Oximetry 99 99 Oxygen Delivery Method Room Air 10/27/23 10:15 10/27/23 10:15 10/27/23 10:20 Temperature Pulse Rate 74 75 Respiratory Rate 12 11 L Blood Pressure 97/57 L Pulse Oximetry 100 100 Oxygen Delivery Method Room Air 10/27/23 10:20 10/27/23 10:21 10/27/23 10:25 Temperature 98.2 F Pulse Rate 74 73 Respiratory Rate 14 Blood Pressure 100/56 L 100/56 L Pulse Oximetry 100 Oxygen Delivery Method 10/27/23 10:25 10/27/23 10:30 10/27/23 10:30 Temperature Pulse Rate 70 Respiratory Rate Blood Pressure 92/53 L 97/62 Pulse Oximetry 99 Oxygen Delivery Method Room Air 10/27/23 10:35 10/27/23 10:35 10/27/23 10:39 Temperature 98.3 F Pulse Rate 70 60 Respiratory Rate 12 14 Blood Pressure 102/60 95/54 L Pulse Oximetry 100 Oxygen Delivery Method 10/27/23 10:40 10/27/23 10:40 10/27/23 10:45 Temperature Pulse Rate 69 70 Respiratory Rate 6 L 12 Blood Pressure 100/60 Pulse Oximetry 98 98 Oxygen Delivery Method 10/27/23 10:45 10/27/23 10:50 10/27/23 10:50 Temperature Pulse Rate 71 Respiratory Rate Blood Pressure 95/54 L 95/56 L Pulse Oximetry 99 Oxygen Delivery Method Room Air 10/27/23 10:55 10/27/23 10:55 10/27/23 11:00 Temperature Pulse Rate 69 70 Respiratory Rate 14 Blood Pressure 99/57 L Pulse Oximetry 99 100 Oxygen Delivery Method 10/27/23 11:00 10/27/23 11:05 10/27/23 11:05 Temperature Pulse Rate 67 Respiratory Rate 11 L Blood Pressure 102/58 L 99/58 L Pulse Oximetry 98 Oxygen Delivery Method 10/27/23 11:10 10/27/23 11:10 10/27/23 11:15 Temperature Pulse Rate 69 71 Respiratory Rate 8 L 12 Blood Pressure 102/56 L Pulse Oximetry 98 99 Oxygen Delivery Method Room Air 10/27/23 11:15 10/27/23 11:20 10/27/23 11:20 Temperature Pulse Rate 68 Respiratory Rate Blood Pressure 103/55 L 100/57 L Pulse Oximetry 98 Oxygen Delivery Method 10/27/23 11:28 10/27/23 11:28 10/27/23 11:30 Temperature Pulse Rate 73 Respiratory Rate 18 Blood Pressure 105/59 L 102/57 L Pulse Oximetry 99 Oxygen Delivery Method 10/27/23 11:30 10/27/23 11:35 10/27/23 11:35 Temperature Pulse Rate 75 71 Respiratory Rate 17 12 Blood Pressure 105/56 L Pulse Oximetry 98 97 Oxygen Delivery Method 10/27/23 11:45 10/27/23 11:45 10/27/23 12:00 Temperature Pulse Rate 75 67 Respiratory Rate 18 18 Blood Pressure 105/63 Pulse Oximetry 99 100 Oxygen Delivery Method Room Air 10/27/23 12:01 10/27/23 12:01 10/27/23 12:30 Temperature Pulse Rate 75 Respiratory Rate 18 Blood Pressure 122/77 101/55 L Pulse Oximetry 100 Oxygen Delivery Method 10/27/23 12:30 10/27/23 12:42 10/27/23 13:00 Temperature 98.9 F Pulse Rate 66 69 Respiratory Rate 12 12 Blood Pressure 101/55 L 94/56 L Pulse Oximetry 99 Oxygen Delivery Method 10/27/23 13:00 Temperature Pulse Rate 67 Respiratory Rate 4 L Blood Pressure Pulse Oximetry 98 Oxygen Delivery Method Oxygen Delivery Method Room Air Narrative Exam Narrative: GEN: no acute distress HEENT: moist mucous membranes, PERRL NECK: trachea midline, no JVD CV: regular rate and rhythm, no murmurs PULM: clear bilaterally ABD: soft, nontender, nondistended, no organomegaly EXT: warm and well perfused with no edema NEURO: awake, alert, oriented, no focal deficits Objective ECG Impression: Sinus rhythm with premature atrial complexes with aberrant conduction Incomplete right bundle branch block Left anterior fascicular block Left ventricular hypertrophy with repolarization abnormality Similar to prior tracings as interpreted by me. No evidence for acute ischemia. Labs 10/27/23 09:35 10/27/23 05:51 Labs: Laboratory Results - last 24 hr 10/27/23 10/27/23 10/27/23 05:51 06:09 08:17 WBC 12.6 H RBC 3.41 L Hgb 9.5 L Hct 29.5 L MCV 86.6 MCH 27.8 MCHC 32.1 RDW 15.5 H Plt Count 283 Neut % (Auto) 85.9 H Lymph % (Auto) 6.7 L [place] % (Auto) 7.1 Eos % (Auto) 0.0 L Baso % (Auto) 0.3 Neut # (Auto) 93727 H Lymph # (Auto) 800 L [place] # (Auto) 900 Eos # (Auto) 0 Baso # (Auto) 0 Sodium 135 L Potassium 4.1 Chloride 99 Carbon Dioxide 26 BUN 34 H Creatinine 1.16 Estimated GFR > 60 BUN/Creatinine Ratio 29.3 H Glucose 220 H D Lactate 1.5 Calcium 11.5 H Total Bilirubin 0.9 AST 30 ALT 16 Alkaline Phosphatase 116 Total Creatine Kinase 33 L Troponin I < 0.012 Total Protein 7.2 Albumin 4.2 Globulin 3.0 Albumin/Globulin Ratio 1.4 Lipase 32 Procalcitonin 0.056 Ur Bilirubin Confirm Negative Blood Type O Positive Antibody Screen Negative Crossmatch See Detail 10/27/23 09:35 WBC RBC Hgb 8.1 L Hct 24.7 L MCV MCH MCHC RDW Plt Count Neut % (Auto) Lymph % (Auto) [place] % (Auto) Eos % (Auto) Baso % (Auto) Neut # (Auto) Lymph # (Auto) [place] # (Auto) Eos # (Auto) Baso # (Auto) Sodium Potassium Chloride Carbon Dioxide BUN Creatinine Estimated GFR BUN/Creatinine Ratio Glucose Lactate Calcium Total Bilirubin AST ALT Alkaline Phosphatase Total Creatine Kinase Troponin I Total Protein Albumin Globulin Albumin/Globulin Ratio Lipase Procalcitonin Ur Bilirubin Confirm Blood Type Antibody Screen Crossmatch Assessment & Plan Assessment & Plan narrative: 1. Acute blood loss anemia, presumed due to upper GI bleeding - light IV fluids, continue NPO and IV PPI BID - discussed with general surgeon, will do endoscopy timing unclear currently, will leave NPO in case this can be done today. - Hg 9.5 > 8.1 on repeat. Will check after transfusion is complete this afternoon. - continue to follow h/h. Patient with initial Hg drop, hypotension, and evidence of active bleeding on CT will make inpatient. #hypercalcemia - likely related to dehydration and hctz use, continue IV fluids, stop home HCTZ this admission. - some PACs on EKG, no obvious changes compared to prior. - will continue telemetry for now until improved. # DM2 -hold home medications, and use SSI. Glucose 220 on admit labs. - carb consistent diet after EGD depending on EGD findings. # HTN - hold home medications for now, recommend stopping hctz at discharge given Calcium was 11.5 on admission. # depression -continue fluoxetine and olanzapine #history of gastric bypass - avoid NSAID use Code: Full, surrogate is patient's spouse DVT: Lovenox daily I have utilized all available immediate resources to obtain, update, or review the patient's current medications. Dispo: patient admitted under inpatient status. Likely discharge home once h/h stable and after endoscopy. Additional history obtained via discussions with the ER provider and general surgeon. These discussions contributed to the creation of the above assessment and plan. I have reviewed patient's presenting documentation, labs, and imaging personally. Time-Based Coding :: [TOTAL MINUTES] spent with patient and on the chart (including review of chart, obtaining history, exam, reviewing outside data, placing orders, documenting exam and treatment plan, and counseling patient) on [DATE]. Quality VTE Deep Vein Thrombosis/Pulmonary Embolism Present on Admission: No
[2023-10-27] MEDS: HYDROMORPHONE 0.5 MG INJ 1 MG IV ×3 (13:53→19:58)
--- NOTE | 2023-10-27 14:41 | P.CONS_ITS ---
History of Present Illness Consult details Date Patient Seen: 10/27/23 Time Patient Seen: 14:41 Chief complaint: abd pain Narrative: 68-year-old male history of gastric bypass and peptic ulcer disease admitted to the hospital with a GI bleed. He has epigastric pain and melena. Hemodynamically stable. At admission hematocrit 25. Meds Home Medications and Allergies Home Medications Medication Instructions Recorded Confirmed Type multivitamin 1 tab PO DAILY 09/10/18 10/27/23 History fluoxetine 60 mg tablet 60 mg PO DAILY 12/18/20 10/27/23 History olanzapine 20 mg tablet 20 mg PO BEDTIME 12/18/20 10/27/23 History acetaminophen 325 mg tablet 650 mg (2 x 325 mg) PO Q6H PRN 01/18/23 10/27/23 Rx Fever/Mild Pain (1-3) #50 tabs nitroglycerin 0.4 mg sublingual 0.4 mg sublingual [id number] PRN 01/18/23 10/27/23 Rx tablet (Nitrostat) Chest Pain #30 tabs polyethylene glycol 3350 17 gram 17 gm PO DAILY PRN Constipation 01/18/23 10/27/23 Rx oral powder packet #15 ea isosorbide mononitrate 30 mg 30 mg PO DAILY #30 tabs 01/29/23 10/27/23 Rx tablet,extended release 24 hr metformin 1,000 mg tablet 500 mg PO BID 09/15/23 10/27/23 History omeprazole 20 mg capsule,delayed 20 mg PO DAILY 09/15/23 10/27/23 History release telmisartan 80 1 tab PO DAILY 09/15/23 10/27/23 History mg-hydrochlorothiazide 25 mg tablet hydrocodone 5 mg-acetaminophen 325 1 tab PO Q8H #20 tabs 09/16/23 10/27/23 Rx mg tablet Allergies Allergy/AdvReac Type Severity Reaction Status Date / Time NSAIDS (Non-Steroidal AdvReac Mild CAN TAKE, Verified 07/16/23 11:02 Anti-Inflamma BUT TRIES [NSAIDS (NON-STEROIDAL TO AVOID ANTI-INFLAMMA] R/T GASTRIC BYPASS Exam Vital Signs (past 8 hours): - 10/27/23 07:00 10/27/23 07:11 10/27/23 07:11 Temperature Pulse Rate 94 H 95 H Respiratory Rate 13 Blood Pressure 113/61 Pulse Oximetry 98 99 Oxygen Delivery Method Room Air Oxygen Flow Rate 10/27/23 07:30 10/27/23 08:00 10/27/23 08:09 Temperature Pulse Rate 93 H 92 H 94 H Respiratory Rate 14 12 12 Blood Pressure Pulse Oximetry 98 98 99 Oxygen Delivery Method Room Air Oxygen Flow Rate 10/27/23 08:09 10/27/23 08:20 10/27/23 08:20 Temperature Pulse Rate 87 Respiratory Rate 10 L Blood Pressure 112/73 119/72 Pulse Oximetry 98 Oxygen Delivery Method Oxygen Flow Rate 10/27/23 08:30 10/27/23 08:40 10/27/23 08:40 Temperature Pulse Rate 91 H 90 Respiratory Rate 18 20 Blood Pressure 106/58 L Pulse Oximetry 99 98 Oxygen Delivery Method Room Air Oxygen Flow Rate 10/27/23 08:53 10/27/23 08:53 10/27/23 09:00 Temperature Pulse Rate 86 85 Respiratory Rate 17 17 Blood Pressure 103/57 L Pulse Oximetry 97 98 Oxygen Delivery Method Oxygen Flow Rate 10/27/23 09:00 10/27/23 09:02 10/27/23 09:02 Temperature Pulse Rate 87 Respiratory Rate 25 H Blood Pressure 84/50 L 103/58 L Pulse Oximetry 98 Oxygen Delivery Method Room Air Oxygen Flow Rate 10/27/23 09:30 10/27/23 09:33 10/27/23 09:33 Temperature Pulse Rate 76 76 Respiratory Rate 12 13 Blood Pressure 95/57 L Pulse Oximetry 100 100 Oxygen Delivery Method Oxygen Flow Rate 10/27/23 09:40 10/27/23 09:40 10/27/23 09:50 Temperature Pulse Rate 77 76 Respiratory Rate 12 Blood Pressure 102/58 L Pulse Oximetry 98 98 Oxygen Delivery Method Room Air Oxygen Flow Rate 10/27/23 09:50 10/27/23 10:00 10/27/23 10:00 Temperature Pulse Rate 79 Respiratory Rate 12 Blood Pressure 95/54 L 87/50 L Pulse Oximetry 98 Oxygen Delivery Method Room Air Oxygen Flow Rate 10/27/23 10:02 10/27/23 10:02 10/27/23 10:05 Temperature Pulse Rate 79 Respiratory Rate 17 Blood Pressure 85/55 L 95/59 L Pulse Oximetry 100 Oxygen Delivery Method Oxygen Flow Rate 10/27/23 10:05 10/27/23 10:10 10/27/23 10:10 Temperature Pulse Rate 79 72 Respiratory Rate 16 Blood Pressure 103/55 L Pulse Oximetry 99 99 Oxygen Delivery Method Room Air Oxygen Flow Rate 10/27/23 10:15 10/27/23 10:15 10/27/23 10:20 Temperature Pulse Rate 74 75 Respiratory Rate 12 11 L Blood Pressure 97/57 L Pulse Oximetry 100 100 Oxygen Delivery Method Room Air Oxygen Flow Rate 10/27/23 10:20 10/27/23 10:21 10/27/23 10:25 Temperature 98.2 F Pulse Rate 74 73 Respiratory Rate 14 Blood Pressure 100/56 L 100/56 L Pulse Oximetry 100 Oxygen Delivery Method Oxygen Flow Rate 10/27/23 10:25 10/27/23 10:30 10/27/23 10:30 Temperature Pulse Rate 70 Respiratory Rate Blood Pressure 92/53 L 97/62 Pulse Oximetry 99 Oxygen Delivery Method Room Air Oxygen Flow Rate 10/27/23 10:35 10/27/23 10:35 10/27/23 10:39 Temperature 98.3 F Pulse Rate 70 60 Respiratory Rate 12 14 Blood Pressure 102/60 95/54 L Pulse Oximetry 100 Oxygen Delivery Method Oxygen Flow Rate 10/27/23 10:40 10/27/23 10:40 10/27/23 10:45 Temperature Pulse Rate 69 70 Respiratory Rate 6 L 12 Blood Pressure 100/60 Pulse Oximetry 98 98 Oxygen Delivery Method Oxygen Flow Rate 10/27/23 10:45 10/27/23 10:50 10/27/23 10:50 Temperature Pulse Rate 71 Respiratory Rate Blood Pressure 95/54 L 95/56 L Pulse Oximetry 99 Oxygen Delivery Method Room Air Oxygen Flow Rate 10/27/23 10:55 10/27/23 10:55 10/27/23 11:00 Temperature Pulse Rate 69 70 Respiratory Rate 14 Blood Pressure 99/57 L Pulse Oximetry 99 100 Oxygen Delivery Method Oxygen Flow Rate 10/27/23 11:00 10/27/23 11:05 10/27/23 11:05 Temperature Pulse Rate 67 Respiratory Rate 11 L Blood Pressure 102/58 L 99/58 L Pulse Oximetry 98 Oxygen Delivery Method Oxygen Flow Rate 10/27/23 11:10 10/27/23 11:10 10/27/23 11:15 Temperature Pulse Rate 69 71 Respiratory Rate 8 L 12 Blood Pressure 102/56 L Pulse Oximetry 98 99 Oxygen Delivery Method Room Air Oxygen Flow Rate 10/27/23 11:15 10/27/23 11:20 10/27/23 11:20 Temperature Pulse Rate 68 Respiratory Rate Blood Pressure 103/55 L 100/57 L Pulse Oximetry 98 Oxygen Delivery Method Oxygen Flow Rate 10/27/23 11:28 10/27/23 11:28 10/27/23 11:30 Temperature Pulse Rate 73 Respiratory Rate 18 Blood Pressure 105/59 L 102/57 L Pulse Oximetry 99 Oxygen Delivery Method Oxygen Flow Rate 10/27/23 11:30 10/27/23 11:35 10/27/23 11:35 Temperature Pulse Rate 75 71 Respiratory Rate 17 12 Blood Pressure 105/56 L Pulse Oximetry 98 97 Oxygen Delivery Method Oxygen Flow Rate 10/27/23 11:45 10/27/23 11:45 10/27/23 12:00 Temperature Pulse Rate 75 67 Respiratory Rate 18 18 Blood Pressure 105/63 Pulse Oximetry 99 100 Oxygen Delivery Method Room Air Oxygen Flow Rate 10/27/23 12:01 10/27/23 12:01 10/27/23 12:25 Temperature Pulse Rate 75 Respiratory Rate 18 Blood Pressure 122/77 Pulse Oximetry 100 97 Oxygen Delivery Method Room Air Oxygen Flow Rate 0 10/27/23 12:30 10/27/23 12:30 10/27/23 12:42 Temperature 98.9 F Pulse Rate 66 69 Respiratory Rate 12 12 Blood Pressure 101/55 L 101/55 L Pulse Oximetry 99 Oxygen Delivery Method Oxygen Flow Rate 10/27/23 13:00 10/27/23 13:00 10/27/23 14:37 Temperature 97.7 F Pulse Rate 67 76 Respiratory Rate 4 L 18 Blood Pressure 94/56 L 105/70 Pulse Oximetry 98 99 Oxygen Delivery Method Room Air Oxygen Flow Rate Oxygen Delivery Method Room Air Oxygen Flow Rate 0 Narrative Exam Narrative: General adult man alert oriented no acute distress Chest nonlabored respiration Extremities warm well perfused Objective Labs 10/27/23 09:35 10/27/23 05:51 Labs: Laboratory Results - last 24 hr 10/27/23 10/27/23 10/27/23 05:51 06:09 08:17 WBC 12.6 H RBC 3.41 L Hgb 9.5 L Hct 29.5 L MCV 86.6 MCH 27.8 MCHC 32.1 RDW 15.5 H Plt Count 283 Neut % (Auto) 85.9 H Lymph % (Auto) 6.7 L [place] % (Auto) 7.1 Eos % (Auto) 0.0 L Baso % (Auto) 0.3 Neut # (Auto) 83888 H Lymph # (Auto) 800 L [place] # (Auto) 900 Eos # (Auto) 0 Baso # (Auto) 0 Sodium 135 L Potassium 4.1 Chloride 99 Carbon Dioxide 26 BUN 34 H Creatinine 1.16 Estimated GFR > 60 BUN/Creatinine Ratio 29.3 H Glucose 220 H D Lactate 1.5 Calcium 11.5 H Total Bilirubin 0.9 AST 30 ALT 16 Alkaline Phosphatase 116 Total Creatine Kinase 33 L Troponin I < 0.012 Total Protein 7.2 Albumin 4.2 Globulin 3.0 Albumin/Globulin Ratio 1.4 Lipase 32 Procalcitonin 0.056 Ur Bilirubin Confirm Negative Blood Type O Positive Antibody Screen Negative Crossmatch See Detail 10/27/23 09:35 WBC RBC Hgb 8.1 L Hct 24.7 L MCV MCH MCHC RDW Plt Count Neut % (Auto) Lymph % (Auto) [place] % (Auto) Eos % (Auto) Baso % (Auto) Neut # (Auto) Lymph # (Auto) [place] # (Auto) Eos # (Auto) Baso # (Auto) Sodium Potassium Chloride Carbon Dioxide BUN Creatinine Estimated GFR BUN/Creatinine Ratio Glucose Lactate Calcium Total Bilirubin AST ALT Alkaline Phosphatase Total Creatine Kinase Troponin I Total Protein Albumin Globulin Albumin/Globulin Ratio Lipase Procalcitonin Ur Bilirubin Confirm Blood Type Antibody Screen Crossmatch [facility] Medical History GERD (gastroesophageal reflux disease) HNP (herniated nucleus pulposus), lumbar History of bleeding ulcers Hypertriglyceridemia Non-insulin dependent type 2 diabetes mellitus HTN (hypertension) Nephrolithiasis Degenerative disc disease Surgical History History of vasectomy History of colonoscopy History of cholecystectomy History of gastric bypass History of cervical spinal surgery Status post lumbar surgery Family History Mother No known health problems Father No known health problems Social History household members: spouse and family Tobacco & Substance Use Smoking Status: Former smoker alcohol intake: former Assessment & Plan Assessment and plan (1) Acute GI bleeding: Status: Acute Assessment & Plan narrative: 68-year-old male history peptic ulcer and gastric bypass with GI bleed presumably upper hemodynamically stable. Recommended proceeding with diagnostic upper endoscopy for further evaluation man possible treatment. Overview of procedure discussed. Procedural risks including hemorrhage, intestinal injury were reviewed. Questions have been answered he provides his consent. Time-Based Coding :: [TOTAL MINUTES] spent with patient and on the chart (including review of chart, obtaining history, exam, reviewing outside data, placing orders, documenting exam and treatment plan, and counseling patient) on [DATE].
--- NOTE | 2023-10-27 14:59 | P.OP.EGD_ITS ---
Operative Date/Time/Diagnoses Date of procedure: 10/27/23 Time of procedure: 15:00 Pre-op diagnosis: GI bleed Post-op diagnosis: same Procedure & Clinicians Study performed: Esophagogastroduodenoscopy Same procedure as scheduled: Yes Indications: 68-year-old male history of peptic ulcer disease and gastric bypass admitted to the hospital with abdominal pain and GI bleed hemodynamically stable Surgeon: Tyrone Rivera Procedure Notes Procedure in detail: Patient was brought to the procedure room placed supine. Anesthesia was induced. Mouth guard was placed time-out performed. Scope was inserted through mouth and advanced down of the esophagus. The stomach was examined there was some mild gastritis adjacent to the gastrojejunostomy however no marcia ulcer or active hemorrhage. The small bowel was intubated and transverse for. Of sev eral cm there was no evidence of bleeding within this. Stomach was decompressed and the scope was withdrawn. Specimen(s): none sent Impression: History of gastric bypass Mild gastritis no active hemorrhage Post-procedure Disposition: Acute Care
--- NOTE | 2023-10-27 15:12 | SUR.PHASEI ---
Report called to MARQUIS Bowman. Patient transferred to the floor by Johnnie. Condition stable.
[2023-10-27] MEDS: HYDROCODONE/ACET 5/325 TABLET 1 TAB PO ×2 (15:47→23:13)
--- NOTE | 2023-10-27 15:55 | PC.NURSE ---
Day Shift Patient returned from scope at 1513. Alert and oriented x3. Reports pain 8/10 to upper abdomen, reports this is unchanged from admit, medicated per emar. Denies nausea. Taking sips of water without issue. is at bedside. Call light within reach, using appropriately to make needs known.
[2023-10-27 16:25] LABS: Hematocrit 28.5 % (41-53); Hemoglobin 9.3 g/dL (13.5-17.5)
[2023-10-27] MEDS: OLANZapine 2.5 MG TABLET 20 MG PO (21:32)
[2023-10-27] MEDS: PANTOPRAZOLE 40 MG VIAL IV (21:33)
[2023-10-28] VITALS (42 sets, daily range): BP systolic 87–129; BP diastolic 50–69; PULSE 64–97; RESP 7–32; TEMP 36.2–37.2; O2SAT 92–97
[2023-10-28 01:02] LABS: MRSA (Nasal) PCR NOT DETECTED (Not Detect)
[2023-10-28 04:01] LABS: Add Manual Diff / Slide Review NO; Basophils Absolute Auto 0 /uL (0-100); Basophils Percent Auto 0.5 % (0-2); Eosinophils Absolute Auto 100 /uL (0-450); Eosinophils Percent Auto 1.1 % (2-4); Hematocrit 26.7 % (41-53); Hemoglobin 8.8 g/dL (13.5-17.5); Lymphocytes Absolute Auto 1500 /uL (1100-4500); Lymphocytes Percent Auto 19.9 % (25-40); Mean Corpuscular HGB Conc 32.9 % (30-36); Mean Corpuscular Hemoglobin 28.6 PG (26-34); Mean Corpuscular Volume 87.1 fL (80-100); Monocytes Absolute Auto 700 /uL (0-900); Monocytes Percent Auto 9.7 % (3-14); Neutrophils Absolute Auto 5100 /uL (1500-7000); Neutrophils Percent Auto 68.8 % (50-75); Platelet Count 205 X10^3/uL (150-400); Red Blood Cell Count 3.07 X10^6/uL (4.5-5.9); Red Cell Distribution Width 15.7 % (11.6-14.8); White Blood Cell Count 7.4 X10^3/uL (4.5-11.0)
[2023-10-28 04:19] LABS: Alanine Aminotransferase 12 IU/L (<50); Albumin 3.2 g/dL (3.5-5.0); Albumin Globulin Ratio 1.2 (1.0-2.8); Alkaline Phosphatase 87 U/L (38-126); Aspartate Aminotransferase 24 IU/L (17-59); BUN Creatinine Ratio 30.7 (6-22); Bilirubin Total 0.6 mg/dL (0.2-1.3); Blood Urea Nitrogen 35 mg/dL (9-20); Calcium 8.4 mg/dL (8.4-10.2); Carbon Dioxide 26 mmol/L (22-32); Chloride 104 mmol/L (98-107); Estimated Glomerular Filt Rate > 60 mL/min (>60); Globulin 2.6 g/dL (1.7-4.1); Glucose 104 mg/dL (80-110); HEMOLYSIS 18 (0-50); Magnesium 1.4 mg/dL (1.6-2.3); Potassium 3.7 mmol/L (3.4-5.1); Sodium 135 mmol/L (137-145); Total Protein 5.8 g/dL (6.3-8.2)
--- NOTE | 2023-10-28 06:46 | PC.NURSE ---
treadle cut off saw operator RN note pt c/o abd pain -10/23, meds given per MAY, denies nausea/dizziness, tolerating PO, slept well after PM meds given
[2023-10-28] MEDS: ONDANSETRON 4 MG/2 ML INJ IV (09:24)
[2023-10-28] MEDS: PANTOPRAZOLE 40 MG VIAL IV ×2 (09:24→20:20)
[2023-10-28] MEDS: HYDROCODONE/ACET 5/325 TABLET 1 TAB PO ×3 (09:27→22:55)
[2023-10-28] MEDS: FLUoxetine 20 MG CAPSULE 60 MG PO (09:27)
[2023-10-28] MEDS: INSULIN LISPRO 100 UNIT/ML 3ML VIAL SUBCUT (12:33)
[2023-10-28] MEDS: SODIUM CHLORIDE 0.9% 1,000 ML 75 ML IV (13:39)
[2023-10-28] MEDS: MAGNESIUM CHLORIDE 64 MG TABLET 128 MG PO (13:39)
--- NOTE | 2023-10-28 14:13 | DIET.CONS ---
Dietary Consultation Note Admission Date: 10/27/2023 10:29 Assessment: 68 y M admitted for acute blood loss anemia. PMH of gastric bypass, DM2, A1c 6% on 09/16/23. Nutrition screened for low MNA. Met w/ pt at bedside. Reports no changes in appetite or intakes during admission or outside of hospital. Reports no notice of weight loss. Diet recall: B- cereal L-sandwich +/- sides D-home cooked meal (meat, veg, carb) Per EMR, EGD impressions reported to be mild gastritis no active hemorrhage. Ht: 167.64 cm Wt: 86.183 kg (weight from 07/16/23), 87 kg on 10/23/23 BMI: 30.7 UBW: 81.8 kg per pt (no weight loss per EMR) Last BM: 10/25/23 (10/27/23 11:05) MNA: 9 Kai Score: 21 Diet: 10/27/23 Dinner Carbohydrate Consistent Diet Diet Modifications: Carbohydrate level: Medium (3 CHO) Reflex DM orders: No Food Texture: Level 7 - Regular Liquid Consistency: Level 0 - Thin Nutrition Percent Meal Consumed 25% 10/28/23 10:00 Percent Meal Consumed 100% 10/27/23 18:00 Labs: RBC 3.07 X10^6/uL (4.5-5.9) L 10/28/23 03:42 Hgb 8.8 g/dL (13.5-17.5) L 10/28/23 03:42 Hct 26.7 % (41-53) L 10/28/23 03:42 Creatinine 1.14 mg/dL (0.66-1.25) 10/28/23 03:42 Lactate 1.5 mmol/L (0.7-2.1) 10/27/23 05:51 Interventions: 1. Encouraged sufficient po intakes as tolerated Monitoring/Evaluations: BG, po intakes Electronically Signed by: Emily Tyler 10/28/23 14:13 Clinical Dietitian [address] [id number]
--- NOTE | 2023-10-28 15:31 | P.PN_ITS ---
Subjective Subjective Interval history: 68 M admitted with GI bleed. EGD showed mild gastritis but no active bleeding. He denies and more dark stool, with no bowel movements today. He did have an episode of 100 cc of clear emesis earlier, has not recurred. Exam Vital Signs (past 8 hours): - 10/28/23 08:00 10/28/23 08:00 10/28/23 08:00 Temperature 99 F Pulse Rate 85 Respiratory Rate 18 Blood Pressure 115/66 Pulse Oximetry 94 97 Oxygen Delivery Method Room Air Room Air Oxygen Flow Rate 0 10/28/23 12:00 Temperature 99 F Pulse Rate 92 H Respiratory Rate 18 Blood Pressure 93/50 L Pulse Oximetry 93 Oxygen Delivery Method Oxygen Flow Rate Oxygen Delivery Method Room Air Oxygen Flow Rate 0 Narrative Exam Narrative: GEN: no acute distress HEENT: moist mucous membranes, PERRL NECK: trachea midline, no JVD CV: regular rate and rhythm, no murmurs PULM: clear bilaterally ABD: soft, nontender, nondistended, no organomegaly EXT: warm and well perfused with no edema NEURO: awake, alert, oriented, no focal deficits Objective Labs 10/28/23 03:42 10/28/23 03:42 Labs: Laboratory Results - last 24 hr 10/27/23 10/27/23 10/28/23 16:16 23:30 03:42 WBC 7.4 RBC 3.07 L Hgb 9.3 L 8.8 L Hct 28.5 L 26.7 L MCV 87.1 MCH 28.6 MCHC 32.9 RDW 15.7 H Plt Count 205 Neut % (Auto) 68.8 Lymph % (Auto) 19.9 L [place] % (Auto) 9.7 Eos % (Auto) 1.1 L Baso % (Auto) 0.5 Neut # (Auto) 5100 Lymph # (Auto) 1500 [place] # (Auto) 700 Eos # (Auto) 100 Baso # (Auto) 0 Sodium 135 L Potassium 3.7 Chloride 104 Carbon Dioxide 26 BUN 35 H Creatinine 1.14 Estimated GFR > 60 BUN/Creatinine Ratio 30.7 H Glucose 104 D Calcium 8.4 Magnesium 1.4 L Total Bilirubin 0.6 AST 24 ALT 12 Alkaline Phosphatase 87 Total Protein 5.8 L Albumin 3.2 L Globulin 2.6 Albumin/Globulin Ratio 1.2 Nasal Screen MRSA (PCR) Not detected [facility] Medical History GERD (gastroesophageal reflux disease) HNP (herniated nucleus pulposus), lumbar History of bleeding ulcers Hypertriglyceridemia Non-insulin dependent type 2 diabetes mellitus HTN (hypertension) Nephrolithiasis Degenerative disc disease Surgical History History of vasectomy History of colonoscopy History of cholecystectomy History of gastric bypass History of cervical spinal surgery Status post lumbar surgery Family History Mother No known health problems Father No known health problems Social History household members: spouse and family Smoking Status: Former smoker alcohol intake: former Assessment & Plan Assessment & Plan narrative: 1. Acute blood loss anemia, presumed due to upper GI bleeding - continue IV PPI BID for now, transition to PO shortly once vomiting resolves. - EGD with mild gastritis, no active bleeding noted. - discussed with general surgeon the above findings and plan. - Hg 9.5 > 8.1 > 9.3 > 8.8. - continue to follow h/h.. #hypercalcemia - likely related to dehydration and hctz use, continue IV fluids, stop home HCTZ this admission. Improved to normal today. - some PACs on EKG, no obvious changes compared to prior. - will continue telemetry for now until improved. # DM2 -hold home medications, and use SSI. Glucose 220 on admit labs. - carb consistent diet after EGD depending on EGD findings. # HTN - hold home medications for now, recommend stopping hctz at discharge given Calcium was 11.5 on admission. - needed to add midodrine as he is orthostatic again today and dizzy. # depression -continue fluoxetine and olanzapine #history of gastric bypass - avoid NSAID use #hypomagnesemia - repleted today. #orthostatic hypotension - start midodrine 2.5 mg TID, he has a history of orthostatic hypotension during prior admissions./ Code: Full, surrogate is patient's spouse DVT: Lovenox daily I have utilized all available immediate resources to obtain, update, or review the patient's current medications. Dispo: patient admitted under inpatient status. Likely discharge home once h/h stable and not orthostatic. Additional history obtained via discussions with the general surgeon, pharmacist, bedside staff, and case management team. These discussions contributed to the creation of the above assessment and plan. I have reviewed patient's presenting documentation, labs, and imaging personally. Time-Based Coding :: [TOTAL MINUTES] spent with patient and on the chart (including review of chart, obtaining history, exam, reviewing outside data, placing orders, documenting exam and treatment plan, and counseling patient) on [DATE]. Quality VTE Deep Vein Thrombosis/Pulmonary Embolism Present on Admission: No
--- NOTE | 2023-10-28 15:58 | CM.DANOTE ---
Initial DCP Assessment Note Pt is a 68 yo male, resident of [place], presents with GI Bleed, EGD showed no acute bleed, mild gastritis. PCP: Shin José Payer: ADRYAN GRIFFIN/ [employer] Reviewed chart, met w/patient to introduce self and role. Patient reports he lives independently with spouse, drives, works at [employer]. MIL/AMADOU live in the home as well. Patient denies needs from this CM team, plans to return home w/family, spouse to transport, patient appreciative for the visit. No barriers identified at this time to patient's safe discharge home w/family to assist; close outpatient f/u recommended. CM team will plan to follow clinical course closely in case any DC needs or concerns arise. ADAM Hanna Discharge Planning/Care Management CM Discharge Assessment Start: 10/28/23 15:57 Freq: Status: Active Protocol: Document 10/28/23 15:57 MIGUEL (Rec: 10/28/23 15:58 MIGUEL [id number]) Discharge Planning Assessment Assigned Airline Pilot Flight Instructor ADAM Ramirez DPOA/Assigned Designee Name Cecy Yin, spouse Contact Information [phone] Advance Directives? No Advance Directives on File No History Provided By Patient,Medical Record Prior Living Arrangements House Household Members spouse,family Type of transporation used prior to Drives own vehicle admit Independent with ADL's Yes Is patient alert and oriented? Yes Barriers to Discharge No Discharge Plan Home Transportation Arrangement Spouse POV Referrals Initiated None needed
[2023-10-28] MEDS: MIDODRINE HCL 5 MG TABLET 2.5 MG PO (17:26)
[2023-10-28] MEDS: OLANZapine 2.5 MG TABLET 20 MG PO (20:20)
[2023-10-28] MEDS: HYDROMORPHONE 0.5 MG INJ 1 MG IV (20:34)
[2023-10-29] VITALS: BP 104/52; PULSE 73; RESP 18; TEMP 36.6; O2SAT 93
[2023-10-29] MEDS: SODIUM CHLORIDE 0.9% 1,000 ML 75 ML IV (02:31)
[2023-10-29 04:00] VITALS: BP 141/65; PULSE 82; RESP 18; TEMP 36.7; O2SAT 97
[2023-10-29] MEDS: MIDODRINE HCL 5 MG TABLET 2.5 MG PO ×2 (05:39→12:33)
[2023-10-29] MEDS: HYDROCODONE/ACET 5/325 TABLET 1 TAB PO (06:59)
[2023-10-29 08:00] VITALS: BP 135/64; PULSE 68; RESP 16; TEMP 36.9; O2SAT 96; O2SAT 97
[2023-10-29 08:30] LABS: Add Manual Diff / Slide Review NO; Basophils Absolute Auto 0 /uL (0-100); Basophils Percent Auto 0.5 % (0-2); Eosinophils Absolute Auto 100 /uL (0-450); Eosinophils Percent Auto 1.9 % (2-4); Hematocrit 27.7 % (41-53); Hemoglobin 8.9 g/dL (13.5-17.5); Lymphocytes Absolute Auto 1500 /uL (1100-4500); Lymphocytes Percent Auto 22.6 % (25-40); Mean Corpuscular HGB Conc 32.1 % (30-36); Mean Corpuscular Hemoglobin 28.3 PG (26-34); Mean Corpuscular Volume 88.2 fL (80-100); Monocytes Absolute Auto 600 /uL (0-900); Monocytes Percent Auto 8.6 % (3-14); Neutrophils Absolute Auto 4300 /uL (1500-7000); Neutrophils Percent Auto 66.4 % (50-75); Platelet Count 214 X10^3/uL (150-400); Red Blood Cell Count 3.15 X10^6/uL (4.5-5.9); Red Cell Distribution Width 15.8 % (11.6-14.8); White Blood Cell Count 6.4 X10^3/uL (4.5-11.0)
[2023-10-29] MEDS: MAG HYDROX/ALUM/SIMETH 30 ML UDC PO (08:36)
[2023-10-29] MEDS: FLUoxetine 20 MG CAPSULE 60 MG PO (08:36)
[2023-10-29] MEDS: SODIUM CHLORIDE 0.9% FLUSH 10 ML IV (08:37)
[2023-10-29] MEDS: PANTOPRAZOLE DR 40 MG TABLET PO (08:38)
[2023-10-29 08:55] LABS: Alanine Aminotransferase 11 IU/L (<50); Albumin 3.3 g/dL (3.5-5.0); Albumin Globulin Ratio 1.3 (1.0-2.8); Alkaline Phosphatase 100 U/L (38-126); Aspartate Aminotransferase 21 IU/L (17-59); BUN Creatinine Ratio 24.5 (6-22); Bilirubin Total 0.5 mg/dL (0.2-1.3); Blood Urea Nitrogen 25 mg/dL (9-20); Calcium 8.2 mg/dL (8.4-10.2); Carbon Dioxide 24 mmol/L (22-32); Chloride 109 mmol/L (98-107); Estimated Glomerular Filt Rate > 60 mL/min (>60); Globulin 2.6 g/dL (1.7-4.1); Glucose 106 mg/dL (80-110); HEMOLYSIS < 15 (0-50); Magnesium 1.8 mg/dL (1.6-2.3); Potassium 3.7 mmol/L (3.4-5.1); Sodium 140 mmol/L (137-145); Total Protein 5.9 g/dL (6.3-8.2)
[2023-10-29] MEDS: OXYCODONE IR 5 MG TABLET PO (11:13)
--- NOTE | 2023-10-29 11:49 | PM.DS.1 ---
History of Present Illness History of Present Illness Date Patient Seen: 10/29/23 Time Patient Seen: 09:00 Chief complaint: abd pain Narrative: Kristian Yin is a 68yo M with PMH of GERD with gastric ulcer, prior gastric bypass, non-obstructive CAD, HTN, HLD, DM2, depression, chronic anemia, and kidney stones who presented with weakness, melena, and severe abdominal pain. Patient reports melena ongoing for the past two weeks. And increasing sharp and then achy epigastric abdominal pain that is non-radiating. He denies NSAID use, did not trial omeprazole or other antacids. Over the last couple of days he has had a few loose melenotic stools and thought the problem to be slightly worsening since approx. 5 days ago. He denies chest pain, palpitations, shortness of breath. Hg on arrival was similar to prior values, but dropped from approx 9.[address] showed gastric inflammation and possible bleeding from his jose-en-y anastamotic site per radiologist. He was hypotensive, improved with fluids and blood. Admitted for acute blood loss anemia presumed secondray to upper GI bleeding. Discussed with surgery and plan for endoscopy later today. Discharge Providers Provider Date of admission: 10/27/23 10:29 Discharge Date: 10/29/23 Primary care physician: Shin José PA-C Discharge provider: Eddie Webb DO Summary Hospital Course Discharge Diagnosis: 1. Acute blood loss anemia, presumed due to upper GI bleeding #hypercalcemia # DM2 # HTN # depression #history of gastric bypass #hypomagnesemia #orthostatic hypotension Hospital Course: This is a 68 year old male with DM2, HTN, depression, gastric bypass who was admitted with presumed upper GI bleeding with melena and CT showing possible bleeding from an anastamotic site from his gastric bypass. He was started on IV PPI, surgery performed EGD which only showed mild gastritis but no active bleeding. Initially he was hypotensive, and was given 1U PRBC transfusion with appropriate improvement from 8.1 to 9.3 Hg. Hg remained stable after this, and patient had no further bowel movements. He improved much more quickly than anticipated. He felt well the day after admission, with improved BP (though he had gotten a few doses of midodrine given hypotension, and reported dizziness which resolved). His home BP medications were stopped at the time of discharge, and no midodrine was recommended on discharge, though follow up with PCP is recommended for ongoing monitoring as he both has HTN and recent orthostatic hypotension. He is recommended to continue on oral PPI 40 mg BID at discharge for approx 4 weeks, then reduce to daily. No other medication changes are recommended at the time of discharge. Time Spent with Patient Time spent: Greater than 30 minutes Exam Vital Signs (past 8 hours): - 10/29/23 04:00 10/29/23 04:00 10/29/23 07:00 Temperature 98.1 F Pulse Rate 82 Respiratory Rate 18 Blood Pressure 141/65 H Pulse Oximetry 97 97 Oxygen Delivery Method Room Air Room Air Oxygen Flow Rate 0 0 10/29/23 08:00 10/29/23 08:00 Temperature 98.4 F Pulse Rate 68 Respiratory Rate 16 Blood Pressure 135/64 Pulse Oximetry 96 97 Oxygen Delivery Method Room Air Oxygen Flow Rate 0 Oxygen Delivery Method Room Air Oxygen Flow Rate 0 Narrative Exam Narrative: GEN: no acute distress HEENT: moist mucous membranes, PERRL NECK: trachea midline, no JVD CV: regular rate and rhythm, no murmurs PULM: clear bilaterally ABD: soft, nontender, nondistended EXT: warm and well perfused with no edema NEURO: awake, alert, oriented, no focal deficits Objective Labs 10/29/23 08:02 10/29/23 08:02 Labs: Laboratory Results - last 24 hr 10/29/23 08:02 WBC 6.4 RBC 3.15 L Hgb 8.9 L Hct 27.7 L MCV 88.2 MCH 28.3 MCHC 32.1 RDW 15.8 H Plt Count 214 Neut % (Auto) 66.4 Lymph % (Auto) 22.6 L Coles % (Auto) 8.6 Eos % (Auto) 1.9 L Baso % (Auto) 0.5 Neut # (Auto) 4300 Lymph # (Auto) 1500 Coles # (Auto) 600 Eos # (Auto) 100 Baso # (Auto) 0 Sodium 140 Potassium 3.7 Chloride 109 H Carbon Dioxide 24 BUN 25 H Creatinine 1.02 Estimated GFR > 60 BUN/Creatinine Ratio 24.5 H Glucose 106 Calcium 8.2 L Magnesium 1.8 Total Bilirubin 0.5 AST 21 ALT 11 Alkaline Phosphatase 100 Total Protein 5.9 L Albumin 3.3 L Globulin 2.6 Albumin/Globulin Ratio 1.3 PFSH Medical History GERD (gastroesophageal reflux disease) HNP (herniated nucleus pulposus), lumbar History of bleeding ulcers Hypertriglyceridemia Non-insulin dependent type 2 diabetes mellitus HTN (hypertension) Nephrolithiasis Degenerative disc disease Surgical History History of vasectomy History of colonoscopy History of cholecystectomy History of gastric bypass History of cervical spinal surgery Status post lumbar surgery Family History Mother No known health problems Father No known health problems Social History household members: spouse and family Smoking Status: Former smoker alcohol intake: former Discharge Plan Discharge Plan Patient Disposition: Home Provider Discharge Comment: You were admitted to the hospital with abdominal pain and GI bleeding. endoscopy showed mild gastritis. Continue pantoprazole twice daily for 4 weeks, then continue daily. Some extra pain medication was sent to your pharmacy as well. Discharge orders & Medications Prescriptions: New oxycodone 5 mg Tablet 5 mg PO Q3HR PRN (Reason: Pain, Moderate (4-6)) 7 Days Qty: 20 0RF pantoprazole 40 mg Tablet,Delayed Release (Dr/Ec) 40 mg PO BID 30 Days Qty: 60 0RF Continued acetaminophen 325 mg Tablet 650 mg PO Q6H PRN (Reason: Fever/Mild Pain (1-3)) Qty: 50 0RF polyethylene glycol 3350 17 gram Powder In Packet 17 gm PO DAILY PRN (Reason: Constipation) Qty: 15 0RF nitroglycerin [Nitrostat] 0.4 mg Tablet, Sublingual 0.4 mg sublingual [id number] PRN (Reason: Chest Pain) Qty: 30 0RF isosorbide mononitrate 30 mg Tablet Extended Release 24 Hr 30 mg PO DAILY Qty: 30 0RF metformin 1,000 mg tablet 500 mg PO BID hydrocodone-acetaminophen 5-325 mg tablet 1 tab PO Q8H Qty: 20 0RF sertraline 100 mg tablet 100 mg PO DAILY multivitamin Tablet 1 tab PO DAILY olanzapine 20 mg tablet 20 mg PO BEDTIME Patient Comments: take 1 tablet by mouth at bedtime fluoxetine 60 mg tablet 60 mg PO DAILY Patient Comments: take 1 tablet by mouth once daily Discontinued omeprazole 20 mg Capsule,Delayed Release(Dr/Ec) 20 mg PO DAILY telmisartan-hydrochlorothiazid 80-25 mg tablet 1 tab PO DAILY Follow up/Referrals: Shin José PA-C [Primary Care Provider] - Diet/Activity/Treatments Diet: Diet as Tolerated and Carb-consistent/Diabetic Activity: As tolerated, no restrictions. Visit Report/Discharge Packet Stand Alone Forms: Patient Portal/API, Stroke Signs & Symptoms Discharge Data Primary Care Provider: Shin José Quality VTE Deep Vein Thrombosis/Pulmonary Embolism Present on Admission: No
[2023-10-29 12:00] VITALS: BP 121/58; PULSE 68; RESP 16; TEMP 36.6; O2SAT 94; O2SAT 96
[2023-10-29] MEDS: INSULIN LISPRO 100 UNIT/ML 3ML VIAL SUBCUT (12:03)
== END 2023-10-29 13:39 | disposition home or self-care (01) | DRG 378 ==
LOC: ED 10:21 → AC 10:30 → ICU 11:35
PROVIDERS: Emergency Medicine; Surgery; Admitting Provider Internal Medicine; Emergency Provider Emergency Medicine; PCP Student in an Organized Health Care Education/Training Program; Referring Provider Emergency Medicine; Visit Provider Internal Medicine
PROC: 0DJ08ZZ Inspection of Upper Intestinal Tract, Via Natural or Artificial Opening Endoscopic (ICD-10-PCS; CPT 43235; principal; 2023-10-27 15:00)
DX: K29.71 Gastritis, unspecified, with bleeding (principal); D62 Acute posthemorrhagic anemia; E83.52 Hypercalcemia; E86.0 Dehydration; E11.9 Type 2 diabetes mellitus without complications; I10 Essential (primary) hypertension; F32.A Depression, unspecified; I25.10 Atherosclerotic heart disease of native coronary artery without angina pectoris; E83.42 Hypomagnesemia; I95.1 Orthostatic hypotension; Z79.84 Long term (current) use of oral hypoglycemic drugs; Z98.84 Bariatric surgery status; Z87.891 Personal history of nicotine dependence
CPT/HCPCS: 36415; 36430; 71045; 74174; 80053; 81003; 82550; 82962; 83605; 83690; 83735; 84145; 84484; 85014; 85018; 85025; 86850; 86900; 86901; 87040; 87797; 93005; 93010; 96361; 96365; 96375; 99285; 99291; P9016; J0136; J1170; J1815; J2405; J2470; J2704; J3010; Q9967

== ENCOUNTER 2023-12-22 09:45 | Emergency (ER) | payer MEDICARE, OTHER, SELFPAY ==
[2023-10-27 11:05] VITALS: BMI 30.7
[2023-12-22] VITALS (13 sets, daily range): BP systolic 109–168; BP diastolic 62–83; PULSE 83–112; RESP 12–27; TEMP 36.7; O2SAT 97–99; BMI 29.0
--- NOTE | 2023-12-22 09:48 | EKG_ITS ---
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
--- NOTE | 2023-12-22 09:48 | DI.RAD.S_ITS ---
PROCEDURE: XR CHEST 1V INDICATIONS: chest pain TECHNIQUE: One view of the chest was acquired. COMPARISON: [facility], CR, XR CHEST 1V, 10/27/2023, 6:27. FINDINGS: Surgical changes and devices: None. Lungs and pleura: Lungs are clear. No pleural effusions or pneumothorax. Mediastinum: Mediastinal contours appear normal. Heart size is normal. Bones and chest wall: No suspicious bony lesions. Overlying soft tissues appear unremarkable. IMPRESSION: No acute cardiopulmonary process. Dictated by: Brenda Crabtree M.D. on 12/22/2023 at 10:37 Approved by: Brenda Crabtree M.D. on 12/22/2023 at 10:38
--- NOTE | 2023-12-22 10:10 | ED.CHESTPAIN ---
HPI - Chest Pain General Chief Complaint: Chest Pain Stated Complaint: chest/back pain Time Seen by Provider: 12/22/23 10:10 Source: patient Mode of arrival: Family Vehicle Limitations: no limitations History of Present Illness HPI narrative: 68-year-old male with history of reported coronary artery disease, believes that he had a heart attack 20 years ago, no coronary interventions however, followed by local filament shaper Dr. Santiago, recalls having cardiac catheterization about 3 years ago at [facility] resulting in no interventions, believes he had a exercise stress test 6 months ago that was reportedly reassuring. He has 1-1/2 hours duration of left anterior chest discomfort, radiates to the back, not particularly worse with movements or with inspiration. No recent cough. No fevers or chills. No associated nausea, diaphoresis, weakness, syncope, presyncope. Related Data Home Medications Medication Instructions Recorded Confirmed multivitamin 1 tab PO DAILY 09/10/18 10/27/23 fluoxetine 60 mg tablet 60 mg PO DAILY 12/18/20 10/27/23 olanzapine 20 mg tablet 20 mg PO BEDTIME 12/18/20 10/27/23 metformin 1,000 mg tablet 500 mg PO BID 09/15/23 10/27/23 sertraline 100 mg tablet 100 mg PO DAILY 10/28/23 10/28/23 Previous Rx's Medication Instructions Recorded acetaminophen 325 mg tablet 650 mg (2 x 325 mg) PO Q6H PRN 01/18/23 Fever/Mild Pain (1-3) #50 tabs nitroglycerin 0.4 mg sublingual 0.4 mg sublingual [id number] PRN 01/18/23 tablet (Nitrostat) Chest Pain #30 tabs polyethylene glycol 3350 17 gram 17 gm PO DAILY PRN Constipation 01/18/23 oral powder packet #15 ea isosorbide mononitrate 30 mg 30 mg PO DAILY #30 tabs 01/29/23 tablet,extended release 24 hr hydrocodone 5 mg-acetaminophen 325 1 tab PO Q8H #20 tabs 09/16/23 mg tablet omeprazole 20 mg capsule,delayed 20 mg PO DAILY upper abdominal 12/22/23 release pain 30 days #30 caps Allergies Allergy/AdvReac Type Severity Reaction Status Date / Time NSAIDS (Non-Steroidal AdvReac Mild CAN TAKE, Verified 07/16/23 11:02 Anti-Inflamma BUT TRIES [NSAIDS (NON-STEROIDAL TO AVOID ANTI-INFLAMMA] R/T GASTRIC BYPASS Review of Systems Review of Systems Narrative: see HPI Patient History Medical History GERD (gastroesophageal reflux disease) HNP (herniated nucleus pulposus), lumbar History of bleeding ulcers Hypertriglyceridemia Non-insulin dependent type 2 diabetes mellitus HTN (hypertension) Nephrolithiasis Degenerative disc disease Surgical History History of vasectomy History of colonoscopy History of cholecystectomy History of gastric bypass History of cervical spinal surgery Status post lumbar surgery Family History Mother No known health problems Father No known health problems Social History household members: spouse and family Smoking Status: Former smoker alcohol intake: former Smoking Status: Former smoker tobacco type: cigarettes alcohol intake frequency: holidays/special occasions only Substance Use Type: does not use Exam Narrative Exam Narrative: GENERAL: Well-developed patient, in mild distress. HEAD: Atraumatic. Normocephalic. EYES: Pupils equal round and reactive. Extraocular motions intact. No scleral icterus. No injection or drainage. ENT: Nose without bleeding, purulent drainage. Throat without erythema, tonsillar hypertrophy or exudate. Airway patent. NECK: Trachea midline. Non tender CARDIOVASCULAR: Regular rate and rhythm without murmurs, gallops, or rubs. RESPIRATORY: Clear to auscultation. Breath sounds equal bilaterally. No wheezes, rales, or rhonchi. GASTROINTESTINAL: Abdomen soft, non-tender, nondistended. EXTREMITIES: No edema or joint tenderness. BACK: Nontender without deformity or crepitance. No flank tenderness. NEURO: AOx3. Motor functions grossly nonfocal SKIN: No rash or erythema of visible areas Initial Vital Signs Initial Vital Signs: Vital Signs Pulse Rate 112 H 12/22/23 09:51 Pulse Oximetry 98 12/22/23 09:51 Course Orders Ordered: ED Orders 12/22/23 11:32 CT angio chest abdomen pelvis Stat 12/22/23 12:48 Troponin I Stat Discontinued Medications Aspirin (Aspirin 81 Mg Chew Tab) 324 mg PO NOW ONE Stop: 12/22/23 09:49 Last Admin: 12/22/23 10:12 Dose: 243 mg Documented By: Magnesium Sulfate (Magnesium Sulfate) 2 gm in 50 mls @ 150 mls/hr IV NOW ONE Stop: 12/22/23 11:39 Last Infusion: 12/22/23 12:17 Dose: Infused Documented By: ROSITA Co-signed By: AV Admin: 12/22/23 11:28 Dose: 150 mls/hr Documented By: ROSITA Co-signed By: AV Morphine Sulfate (Morphine 4 Mg/Ml Inj) 4 mg IV NOW ONE Stop: 12/22/23 12:28 Last Admin: 12/22/23 12:43 Dose: 4 mg Documented By: ROSITA Nitroglycerin (Nitroglycerin 0.4 Mg Sl Tab) 0.4 mg SL [id number] PRN PRN Reason: Chest Pain Last Admin: 12/22/23 11:40 Dose: 0.4 mg Documented By: Admin: 12/22/23 11:32 Dose: 0.4 mg Documented By: Admin: 12/22/23 11:27 Dose: 0.4 mg Documented By: ROSITA Vital Signs Vital signs: Vital Signs - 8 hr 12/22/23 12:00 12/22/23 12:00 12/22/23 12:18 Pulse Rate 93 H Respiratory Rate 17 Blood Pressure 109/65 139/71 Pulse Oximetry 97 12/22/23 12:18 12/22/23 12:30 12/22/23 12:30 Pulse Rate 83 83 Respiratory Rate 23 18 Blood Pressure 131/67 Pulse Oximetry 99 99 12/22/23 13:00 12/22/23 13:00 12/22/23 13:30 Pulse Rate 89 Respiratory Rate 16 Blood Pressure 131/69 139/66 Pulse Oximetry 99 12/22/23 13:30 Pulse Rate 86 Respiratory Rate 13 Blood Pressure Pulse Oximetry 98 MDM - Chest Pain Lab Data Attestation: I reviewed the patient's lab results. 12/22/23 10:20 12/22/23 10:20 Labs: Lab Results 12/22/23 12/22/23 Range/Units 10:20 12:48 WBC 9.3 (4.5-11.0) X10^3/uL RBC 3.71 L (4.5-5.9) X10^6/uL Hgb 9.4 L (13.5-17.5) g/dL Hct 29.1 L (41-53) % MCV 78.6 L (80-100) fL MCH 25.4 L (26-34) PG MCHC 32.3 (30-36) % RDW 16.8 H (11.6-14.8) % Plt Count 278 (150-400) X10^3/uL Neut % (Auto) 80.6 H (50-75) % Lymph % (Auto) 13.2 L (25-40) % Hawkins % (Auto) 5.8 (3-14) % Eos % (Auto) 0.1 L (2-4) % Baso % (Auto) 0.3 (0-2) % Neut # (Auto) 7500 H (6452-9545) /uL Lymph # (Auto) 1200 (4910-8401) /uL Hawkins # (Auto) 500 (0-900) /uL Eos # (Auto) 0 (0-450) /uL Baso # (Auto) 0 (0-100) /uL PT 14.5 H (9.4-12.5) SECONDS INR 1.3 (0.9-1.3) APTT 28 (25.1-36.5) SECONDS Sodium 136 L (137-145) mmol/L Potassium 3.8 (3.4-5.1) mmol/L Chloride 101 (98-107) mmol/L Carbon Dioxide 24 (22-32) mmol/L BUN 22 H (9-20) mg/dL Creatinine 1.11 (0.66-1.25) mg/dL Estimated GFR > 60 (>60) mL/min BUN/Creatinine Ratio 19.8 (6-22) Glucose 131 H (80-110) mg/dL Calcium 10.1 (8.4-10.2) mg/dL Magnesium 1.3 L (1.6-2.3) mg/dL Total Bilirubin 0.6 (0.2-1.3) mg/dL AST 23 (17-59) IU/L ALT 13 (<50) IU/L Alkaline Phosphatase 117 (38-126) U/L Total Creatine Kinase 31 L (55-170) U/L Troponin I < 0.012 < 0.012 (0.01-0.034) ng/mL NT-Pro-B Natriuret Pep 124 (<125) pg/mL Total Protein 7.2 (6.3-8.2) g/dL Albumin 4.0 (3.5-5.0) g/dL Globulin 3.2 (1.7-4.1) g/dL Albumin/Globulin Ratio 1.3 (1.0-2.8) Lipase 27 (23-300) U/L Imaging Data CT chest abdomen and pelvis with IV contrast: Radiologist's Impression: [address] [address] [address] Scan Report Signed Patient: Kristian Yin MR#: [id number] : 1955 Acct:[id number] Age/Sex: 68 / M Date of Service: 12/22/23 Loc: ED Accession Number: [id number] Procedure: CT angio chest abdomen pelvis Ordering Provider: Thierry Novoa MD PROCEDURE: CT ANGIO CHEST ABDOMEN PELVIS INDICATIONS: CP radiating to back TECHNIQUE: Precontrast 5 mm thick sections acquired from the lung apices to the iliac crests. After the administration of intravenous contrast, 2.5 mm thick sections again acquired from the lung apices to the iliac crests. Maximum intensity projection (MIP) oblique sagittal and coronal reformats were then acquired. For radiation dose reduction, the following was used: automated exposure control. COMPARISON: [facility], CT, CT ANGIO ABD/PEL GI BLEED, 10/27/2023, 5:48. FINDINGS: Image quality: Diagnostic. AORTA: No aortic aneurysm. No aortic dissection. No acute aortic syndrome. CHEST: Lower Neck: No enlarged lymph nodes. Thyroid: No thyroid nodules which require sonographic evaluation. Axillae: No enlarged lymph nodes. Chest Wall: Unremarkable. Lungs and Pleura: No pneumothorax or pleural effusions. No consolidation or suspicious nodules. Heart: Heart size is normal. Atherosclerotic calcifications in the coronary vasculature. No pericardial effusion. Thoracic Vessels: Pulmonary arteries demonstrate normal size. Mediastinum and Donna: No enlarged lymph nodes. Esophagus: No wall thickening. No hiatal hernia. ABDOMEN: Liver: No solid mass. Gallbladder: Surgically absent. Biliary ducts: No biliary dilation. Pancreas: No ductal dilation. Spleen: Size is within normal limits. Adrenal Glands: No adrenal nodules. Kidneys and Ureters: Stable 1.3 centimeter nonobstructing right renal stone. No hydronephrosis. No solid mass. No complex renal cystic lesion which requires follow up. Stomach and Bowel: Stable gastric bypass postsurgical changes. Stable small hiatal hernia. Normal colonic caliber, without significant wall thickening. Peritoneum: No abnormal intraperitoneal fluid. No free air. Ventral Wall: Stable infraumbilical ventral midline hernia which contains unremarkable appearing loops of bowel. Stable upper abdominal hernia mesh. Abdominal Nodes: No retroperitoneal or mesenteric adenopathy by size criteria. Vessels: Inferior vena cava is normal in size. Scattered atherosclerotic calcifications involving the abdominal and pelvic vasculature. PELVIS: Pelvic Organs: Prostate is enlarged. Bladder: Unremarkable. Pelvic Nodes: No enlarged lymph nodes. Miscellaneous: No inguinal hernias are seen. Stable calcification in the right inguinal canal. Bones: Spine degenerative disc disease and facet arthropathy. Stable lumbosacral spine postsurgical changes. IMPRESSION: No acute disease process. No aortic dissection or aortic aneurysm. Dictated by: Allie Almanzar MD, PhD on 12/22/2023 at 12:39 Approved by: Allie Almanzar MD, PhD on 12/22/2023 at 12:48 ECG Data Attestation: I personally reviewed and interpreted this ECG as follows: Interpretation: Sinus tachycardia with rate 100, incomplete right bundle branch block, left anterior fascicular block. DC 136, QRS 94, QTC 454. MDM Narrative Medical decision making narrative: Reported history of heart disease, prior remote heart attack but no coronary vessel interventions, hx gastric bypass surgery, cardiac cath 3 yrs ago, more recent stress test 6mo ago, now with anterior chest pain, screening EKG without obvious acute changes, troponin negative, CXR negative. Labs pending pain radiating to back with get CTA Chest Abdomen Pelvis. Ordered. IV morphine. CTA Chest Abd/Pelvis no acute changes. See radiology report. pain free after morphine dose, repeat troponin also negative/unmeasurable 1330, phone call to Cardiology Dr. Santiago, advises treatment as an outpatient for now, history of gastric bypass noted, would not advise antacid, follow up as an outpatient with him for now. Discharge Plan Departure Patient Disposition: Home Clinical Impression: Chest pain Activity Restrictions/Additional Instructions: Chest pain, history of gastric ulcer, reported history of prior coronary problems but no coronary vessel interventions in the past, with chest pain radiating to the back. EKG and blood testing not suggestive of heart attack at this time. Other labs unremarkable. CT angiogram of the chest abdomen and pelvis negative for any acute process. Case discussed with your filament shaper Dr. Santiago, who suggested course of antacids for now, follow up with his office. Call his office tomorrow morning for close follow up appointment. Return to this/nearest emergency department for any change worsening symptoms or any concerns prior Prescriptions: New omeprazole 20 mg capsule,delayed release(DR/EC) 20 mg PO DAILY 30 Days Qty: 30 0RF No Action acetaminophen 325 mg Tablet 650 mg PO Q6H PRN (Reason: Fever/Mild Pain (1-3)) Qty: 50 0RF polyethylene glycol 3350 17 gram Powder In Packet 17 gm PO DAILY PRN (Reason: Constipation) Qty: 15 0RF nitroglycerin [Nitrostat] 0.4 mg Tablet, Sublingual 0.4 mg sublingual [id number] PRN (Reason: Chest Pain) Qty: 30 0RF isosorbide mononitrate 30 mg Tablet Extended Release 24 Hr 30 mg PO DAILY Qty: 30 0RF metformin 1,000 mg tablet 500 mg PO BID hydrocodone-acetaminophen 5-325 mg tablet 1 tab PO Q8H Qty: 20 0RF sertraline 100 mg tablet 100 mg PO DAILY multivitamin Tablet 1 tab PO DAILY olanzapine 20 mg tablet 20 mg PO BEDTIME Patient Comments: take 1 tablet by mouth at bedtime fluoxetine 60 mg tablet 60 mg PO DAILY Patient Comments: take 1 tablet by mouth once daily Referrals: Margaret Santiago MD [Physician] - Shin José PA-C [Primary Care Provider] - Stand Alone Forms: Patient Portal/API
[2023-12-22] MEDS: ASPIRIN 81 MG CHEW TAB 324 MG PO (10:12)
[2023-12-22 10:37] LABS: Add Manual Diff / Slide Review NO; Basophils Absolute Auto 0 /uL (0-100); Basophils Percent Auto 0.3 % (0-2); Eosinophils Absolute Auto 0 /uL (0-450); Eosinophils Percent Auto 0.1 % (2-4); Hematocrit 29.1 % (41-53); Hemoglobin 9.4 g/dL (13.5-17.5); Lymphocytes Absolute Auto 1200 /uL (1100-4500); Lymphocytes Percent Auto 13.2 % (25-40); Mean Corpuscular HGB Conc 32.3 % (30-36); Mean Corpuscular Hemoglobin 25.4 PG (26-34); Mean Corpuscular Volume 78.6 fL (80-100); Monocytes Absolute Auto 500 /uL (0-900); Monocytes Percent Auto 5.8 % (3-14); Neutrophils Absolute Auto 7500 /uL (1500-7000); Neutrophils Percent Auto 80.6 % (50-75); Platelet Count 278 X10^3/uL (150-400); Red Blood Cell Count 3.71 X10^6/uL (4.5-5.9); Red Cell Distribution Width 16.8 % (11.6-14.8); White Blood Cell Count 9.3 X10^3/uL (4.5-11.0)
[2023-12-22 10:42] LABS: INR 1.3 (0.9-1.3); Prothrombin Time 14.5 SECONDS (9.4-12.5)
[2023-12-22 10:45] LABS: PTT Partial Thromboplastin Tim 28 SECONDS (25.1-36.5)
[2023-12-22 11:04] LABS: Alanine Aminotransferase 13 IU/L (<50); Albumin Globulin Ratio 1.3 (1.0-2.8); Alkaline Phosphatase 117 U/L (38-126); Aspartate Aminotransferase 23 IU/L (17-59); BUN Creatinine Ratio 19.8 (6-22); Bilirubin Total 0.6 mg/dL (0.2-1.3); Blood Urea Nitrogen 22 mg/dL (9-20); Calcium 10.1 mg/dL (8.4-10.2); Carbon Dioxide 24 mmol/L (22-32); Chloride 101 mmol/L (98-107); Creatine Kinase 31 U/L (55-170); Estimated Glomerular Filt Rate > 60 mL/min (>60); Globulin 3.2 g/dL (1.7-4.1); Glucose 131 mg/dL (80-110); HEMOLYSIS < 15 (0-50); Lipase 27 U/L (23-300); Magnesium 1.3 mg/dL (1.6-2.3); Potassium 3.8 mmol/L (3.4-5.1); Sodium 136 mmol/L (137-145); Total Protein 7.2 g/dL (6.3-8.2)
[2023-12-22 11:15] LABS: NT-proBNP (BNP-Adult 18+) 124 pg/mL (<125); Troponin I < 0.012 ng/mL (0.01-0.034)
[2023-12-22] MEDS: NITROGLYCERIN 0.4 MG SL TAB SL ×3 (11:27→11:40)
[2023-12-22] MEDS: MAGNESIUM SULFATE 2 GM/50 ML PIGGYBACK IV (11:28)
--- NOTE | 2023-12-22 11:32 | DI.CT.S_ITS ---
PROCEDURE: CT ANGIO CHEST ABDOMEN PELVIS INDICATIONS: CP radiating to back TECHNIQUE: Precontrast 5 mm thick sections acquired from the lung apices to the iliac crests. After the administration of intravenous contrast, 2.5 mm thick sections again acquired from the lung apices to the iliac crests. Maximum intensity projection (MIP) oblique sagittal and coronal reformats were then acquired. For radiation dose reduction, the following was used: automated exposure control. COMPARISON: [facility], CT, CT ANGIO ABD/PEL GI BLEED, 10/27/2023, 5:48. FINDINGS: Image quality: Diagnostic. AORTA: No aortic aneurysm. No aortic dissection. No acute aortic syndrome. CHEST: Lower Neck: No enlarged lymph nodes. Thyroid: No thyroid nodules which require sonographic evaluation. Axillae: No enlarged lymph nodes. Chest Wall: Unremarkable. Lungs and Pleura: No pneumothorax or pleural effusions. No consolidation or suspicious nodules. Heart: Heart size is normal. Atherosclerotic calcifications in the coronary vasculature. No pericardial effusion. Thoracic Vessels: Pulmonary arteries demonstrate normal size. Mediastinum and Donna: No enlarged lymph nodes. Esophagus: No wall thickening. No hiatal hernia. ABDOMEN: Liver: No solid mass. Gallbladder: Surgically absent. Biliary ducts: No biliary dilation. Pancreas: No ductal dilation. Spleen: Size is within normal limits. Adrenal Glands: No adrenal nodules. Kidneys and Ureters: Stable 1.3 centimeter nonobstructing right renal stone. No hydronephrosis. No solid mass. No complex renal cystic lesion which requires follow up. Stomach and Bowel: Stable gastric bypass postsurgical changes. Stable small hiatal hernia. Normal colonic caliber, without significant wall thickening. Peritoneum: No abnormal intraperitoneal fluid. No free air. Ventral Wall: Stable infraumbilical ventral midline hernia which contains unremarkable appearing loops of bowel. Stable upper abdominal hernia mesh. Abdominal Nodes: No retroperitoneal or mesenteric adenopathy by size criteria. Vessels: Inferior vena cava is normal in size. Scattered atherosclerotic calcifications involving the abdominal and pelvic vasculature. PELVIS: Pelvic Organs: Prostate is enlarged. Bladder: Unremarkable. Pelvic Nodes: No enlarged lymph nodes. Miscellaneous: No inguinal hernias are seen. Stable calcification in the right inguinal canal. Bones: Spine degenerative disc disease and facet arthropathy. Stable lumbosacral spine postsurgical changes. IMPRESSION: No acute disease process. No aortic dissection or aortic aneurysm. Dictated by: Allie Almanzar MD, PhD on 12/22/2023 at 12:39 Approved by: Allie Almanzar MD, PhD on 12/22/2023 at 12:48
[2023-12-22] MEDS: MORPHINE 4 MG/ML INJ IV (12:43)
[2023-12-22 13:19] LABS: Troponin I < 0.012 ng/mL (0.01-0.034)
== END 2023-12-22 14:09 | disposition home or self-care (01) ==
PROVIDERS: Emergency Provider Emergency Medicine; PCP Student in an Organized Health Care Education/Training Program
DX: R07.9 Chest pain, unspecified (principal); I25.2 Old myocardial infarction; Z86.79 Personal history of other diseases of the circulatory system; Z87.891 Personal history of nicotine dependence
CPT/HCPCS: 71045; 71275; 74174; 80053; 82550; 83690; 83735; 83880; 84484; 85025; 85610; 85730; 93005; 93010; 96365; 96375; 99284; 99285; J2270; J3475; Q9967

== ENCOUNTER → 2024-01-21 09:14 | Outpatient (CLI) | payer MEDICARE, OTHER, SELFPAY ==
[2023-10-27 11:05] VITALS: BMI 30.7
== END ==
PROVIDERS: PCP Student in an Organized Health Care Education/Training Program; Referring Provider Internal Medicine Cardiovascular Disease; Visit Provider Internal Medicine Cardiovascular Disease
DX: R06.02 Shortness of breath (principal); Z87.891 Personal history of nicotine dependence; R94.2 Abnormal results of pulmonary function studies; R07.89 Other chest pain
CPT/HCPCS: 94060; 94726; 94729

== ENCOUNTER → 2024-02-18 13:07 | Outpatient (CLI) | payer MEDICARE, OTHER, SELFPAY ==
[2023-10-27 11:05] VITALS: BMI 30.7
--- NOTE | 2024-02-18 13:09 | DI.ECHO.S_ITS ---
[facility] : : [address] : : [place] : : [address] : : Phone: [phone] Echocardiogram Report + + :Name: ASHLEY WALDRON Study Date: 02/18/2024 Height: 66 in : :[facility] ReadingLocation: Weight: 180 lb : : Gender: Male BSA: 1.9 m2 : :: 1955 Age: 69 yrs BP: 179/87 mmHg: :Reason For Study: CHEST DISCOMFORT, SHORTNESS OF BREATH : :Ordering Physician: CHARLI, : :SANDEEP Performed By: Joss Gandhi : :Referring: SANDEEP AUGUSTIN : + + Interpretation Summary The left ventricle is normal in size. The left ventricular ejection fraction is normal. The ejection fraction is estimated to be 55-60%. The right ventricle is normal in size and function. The peak aortic velocity is 2.28 m/sec. The aortic valve mean gradient is 11.7 mmHg. The peak aortic velocity on the previous exam was 1.96 m/sec. There is mild aortic stenosis. There is mild tricuspid regurgitation. The right ventricular systolic pressure is estimated to be at least 37 mmHg based on an estimated right atrial pressure of 3 mm Hg. The ascending aorta is mildly enlarged. 3.9 cm in diameter. Previously 3.7 cm in diameter. BP: 179/87 mmHg Procedure: A two-dimensional transthoracic echocardiogram with color flow and Doppler was performed. The study quality was technically good. Comparison is made with the echocardiogram of 09/16/2023. The patient was in normal sinus rhythm during the exam. Left Ventricle: The left ventricle is normal in size. Proximal septal thickening is noted. There is no ventricular septal defect visualized. The ejection fraction is estimated to be 55-60%. The left ventricular ejection fraction is normal. There are no focal wall motion abnormalities. MV E/A: 1.1 Med Peak E' Jeremy: 5.9 cm/sec E/E' med: 19.3. Right Ventricle: The right ventricle is normal in size and function. Atria: The left atrium is moderately dilated. The left atrium has mildly increased in size since the prior echo exam. The right atrium is mildly dilated. There is no Doppler evidence for an interatrial shunt. Mitral Valve: There is mild mitral annular calcification. There is trace mitral regurgitation. Aortic Valve: The aortic valve is trileaflet. The aortic valve is mildly calcified. There is discrete nodular thickening of the non- coronary cusp. The peak aortic velocity is 2.28 m/sec. The aortic valve mean gradient is 11.7 mmHg. The peak aortic velocity on the previous exam was 1.96 m/sec. There is mild aortic stenosis. There is trace aortic regurgitation. Tricuspid Valve: The tricuspid valve is normal in structure and function. There is mild tricuspid regurgitation. The right ventricular systolic pressure is estimated to be at least 37 mmHg based on an estimated right atrial pressure of 3 mm Hg. Pulmonic Valve: The pulmonic valve is normal in structure and function. There is no pulmonic valvular regurgitation. Great Vessels: The aortic root is normal size. The ascending aorta is mildly enlarged. The pulmonary artery is normal size. The IVC is of normal diameter and collapses greater than 50% with a sniff. This suggests a low right atrial pressure of 3 mm Hg. Pericardium/ Pleura There is no pericardial effusion. There is no pleural effusion. MMode/2D Measurements & Calculations LVIDd: 4.8 cm LVOT diam: 2.2 cm LVIDs: 3.4 cm Ao root diam: 3.9 cm FS: 30.0 % asc Aorta Diam: 3.9 cm EPSS: 0.61 cm IVSd: 1.0 cm LVPWd: 1.1 cm LV dougherty. diameter/BSA (cm/m^2): 2.5 LV sys. diameter/BSA (cm/m^2): 1.8 LA A2 area: 27.3 cm2 RA long axis: 5.0 cm LA A4 area: 22.7 cm2 RA area: 16.8 cm2 LA length (vol): 5.6 cm RA vol: 48.2 ml LA vol: 94.0 ml RA : 25.2 ml/m2 LA vol index: 49.2 ml/m2 IVC diam: 1.1 cm RVD1 (basal): 3.5 cm RVD2 (mid): 3.2 cm TAPSE: 3.0 cm Doppler Measurements & Calculations Ao V2 max: 228.2 cm/sec LVOT Max Jeremy: 125.0 cm/sec Ao V2 mean: 164.2 cm/sec LV V1 max P.3 mmHg Ao max P.8 mmHg LV V1 VTI: 27.5 cm Ao mean P.7 mmHg ROBYN(I,D): 2.2 cm2 Ao V2 VTI: 48.7 cm ROBYN(V,D): 2.2 cm2 sev ratio: 0.56 ROBYN indexed to BSA (cm^2/m^2): 1.2 MV E max jeremy: 112.8 cm/sec TR max jeremy: 291.4 cm/sec MV A max jeremy: 103.0 cm/sec TR max P.0 mmHg MV E/A: 1.1 PA V2 max: 107.6 cm/sec Med Peak E' Jeremy: 5.9 cm/sec PA V2 mean: 75.0 cm/sec E/E' med: 19.3 PA mean P.5 mmHg Lat Peak E' Jeremy: 6.4 cm/sec PA pr(Accel): 41.3 mmHg E/E' lat: 17.6 E/e' average: 18.4 MV dec time: 0.17 sec SV(LVOT): 108.2 ml Reading Physician:12:54 PM
--- NOTE | 2024-02-18 13:10 | DI.NM.S_ITS ---
PROCEDURE: NM EXERCISE TREADMILL NON NUC COMPARISON: None INDICATIONS: CHEST DISCOMFORT,SOB FINDINGS: Rest ECG sinus rhythm 68 bpm. Trevor protocol 4:50, maximum heart rate 160 bpm (107% peak predicted), peak blood pressure 180/81, 7.0 METS, TANNA 26%. Exercise ECG sinus tachycardia, no ST segment changes, frequent PACs and PVCs noted lasting into recovery. The patient describes 5 out of 10 substernal chest pain at peak exercise and exhibited moderate shortness of breath. IMPRESSION: Equivocal study. No evidence of exercise-induced EKG changes consistent with ischemia. Frequent exercise-induced PACs and PVCs noted lasting into recovery. Accelerated heart rate response. Normal blood pressure response. Exercise-induced chest discomfort. Reduced exercise capacity. Dictated by: Augustina Conde D.O. on 02/18/2024 at 16:27 Approved by: Augustina Conde D.O. on 02/18/2024 at 16:30
== END ==
PROVIDERS: PCP Student in an Organized Health Care Education/Training Program; Referring Provider Internal Medicine Cardiovascular Disease; Visit Provider Internal Medicine Cardiovascular Disease
DX: R07.89 Other chest pain (principal); I08.3 Combined rheumatic disorders of mitral, aortic and tricuspid valves; R06.02 Shortness of breath; I77.89 Other specified disorders of arteries and arterioles
CPT/HCPCS: 93017; 93306

== ENCOUNTER 2024-03-01 09:27 | Observation (INO) | payer MEDICARE, OTHER, SELFPAY ==
[2023-10-27 11:05] VITALS: BMI 30.7
[2024-03-01] VITALS (12 sets, daily range): BP systolic 129–169; BP diastolic 65–90; PULSE 65–88; RESP 10–20; TEMP 36.4–37.1; O2SAT 96–100; BMI 29.0
--- NOTE | 2024-03-01 09:29 | DI.RAD.S_ITS ---
PROCEDURE: XR CHEST 1V INDICATIONS: chest pain TECHNIQUE: One view of the chest was acquired. COMPARISON: [facility], CR, XR CHEST 1V, 12/22/2023, 9:48. FINDINGS: Surgical changes and devices: None. Lungs and pleura: Lungs are clear. No pleural effusions or pneumothorax. Mediastinum: Mediastinal contours appear normal. Heart size is normal. Bones and chest wall: No suspicious bony lesions. Overlying soft tissues appear unremarkable. IMPRESSION: No acute pulmonary process. Dictated by: Brenda Crabtree M.D. on 03/01/2024 at 9:48 Approved by: Brenda Crabtree M.D. on 03/01/2024 at 9:48
--- NOTE | 2024-03-01 09:33 | EKG_ITS ---
[address] [address] Test Date: 2024-03-01 Pat Name: Kristian Yin Department: Room: Gender: Male Clinical Rn: LAKSHMI : 1955 Requested By: Order Number: [id number] Reading MD: Eddie Webb Measurements Intervals [place] Rate: 87 P: 14 WI: 154 QRS: -52 QRSD: 92 T: 67 QT: 340 QTc: 409 Interpretive Statements Normal sinus rhythm Left anterior fascicular block Minimal voltage criteria for LVH, may be normal variant ( R in aVL ) Electronically Signed On 03-01-2024 19:43:21 PST by Eddie Webb
[2024-03-01 09:50] LABS: Add Manual Diff / Slide Review NO; Basophils Absolute Auto 100 /uL (0-100); Basophils Percent Auto 0.9 % (0-2); Eosinophils Absolute Auto 0 /uL (0-450); Eosinophils Percent Auto 0.5 % (2-4); Hematocrit 26.4 % (41-53); Hemoglobin 7.8 g/dL (13.5-17.5); Lymphocytes Absolute Auto 1200 /uL (1100-4500); Lymphocytes Percent Auto 19.8 % (25-40); Mean Corpuscular HGB Conc 29.5 % (30-36); Mean Corpuscular Hemoglobin 21.4 PG (26-34); Mean Corpuscular Volume 72.4 fL (80-100); Monocytes Absolute Auto 400 /uL (0-900); Monocytes Percent Auto 5.6 % (3-14); Neutrophils Absolute Auto 4600 /uL (1500-7000); Neutrophils Percent Auto 73.2 % (50-75); Platelet Count 258 X10^3/uL (150-400); Red Blood Cell Count 3.64 X10^6/uL (4.5-5.9); Red Cell Distribution Width 17.9 % (11.6-14.8); White Blood Cell Count 6.3 X10^3/uL (4.5-11.0)
--- NOTE | 2024-03-01 09:51 | ED.CHESTPAIN ---
HPI - Chest Pain General Chief Complaint: Chest Pain Stated Complaint: chest pain Time Seen by Provider: 03/01/24 09:43 Source: patient Mode of arrival: Ambulatory History of Present Illness HPI narrative: Patient complains of chest pain that started 1 hour ago. Substernal that radiates to the back. No prior history of aortic dissection or aneurysm. Patient has history of PA without stents. Patient can take aspirin. Did not take it today. Does not have nitroglycerin at home. Patient sees cardiology [facility], dr sellers, for PA in the past. More than 5 years ago. No stents. Patient just had equivocal non nuclear echocardiogram weeks ago here. Has been doing well until today. Feel short of breath. No syncope. No nausea or sweating. Related Data Home Medications Medication Instructions Recorded Confirmed multivitamin 1 tab PO DAILY 09/10/18 03/01/24 olanzapine 20 mg tablet 20 mg PO BEDTIME 12/18/20 03/01/24 metformin 1,000 mg tablet 500 mg PO BID 09/15/23 03/01/24 aspirin 81 mg tablet,delayed 81 mg PO DAILY 03/01/24 03/01/24 release (Adult Low Dose Aspirin) telmisartan 40 1 tab PO DAILY 03/01/24 03/01/24 mg-hydrochlorothiazide 12.5 mg tablet (Micardis HCT) Previous Rx's Medication Instructions Recorded acetaminophen 325 mg tablet 650 mg (2 x 325 mg) PO Q6H PRN 01/18/23 Fever/Mild Pain (1-3) #50 tabs nitroglycerin 0.4 mg sublingual 0.4 mg sublingual [id number] PRN 01/18/23 tablet (Nitrostat) Chest Pain #30 tabs Allergies Allergy/AdvReac Type Severity Reaction Status Date / Time NSAIDS (Non-Steroidal AdvReac Mild CAN TAKE, Verified 07/16/23 11:02 Anti-Inflamma BUT TRIES [NSAIDS (NON-STEROIDAL TO AVOID ANTI-INFLAMMA] R/T GASTRIC BYPASS Review of Systems Review of Systems Narrative: GENERAL: Negative chills, fatigue, malaise, fever, sweats. HEENT: Negative sinus pain, ear pain, sore throat RESPIRATORY: Positive dyspnea, negative cough CARDIOVASCULAR: Positive chest pain, negative palpitations GASTROINTESTINAL: Negative nausea, vomiting, abdominal pain : Negative dysuria, frequency, hematuria MUSCULOSKELETAL: Negative muscle or bony pain SKIN: Negative rash, skin lesions NEUROLOGIC: Negative weakness, numbness ROS Unobtainable: All systems reviewed & are unremarkable except as noted in HPI and below Patient History Medical History GERD (gastroesophageal reflux disease) HNP (herniated nucleus pulposus), lumbar History of bleeding ulcers Hypertriglyceridemia Non-insulin dependent type 2 diabetes mellitus HTN (hypertension) Nephrolithiasis Degenerative disc disease Surgical History History of vasectomy History of colonoscopy History of cholecystectomy History of gastric bypass History of cervical spinal surgery Status post lumbar surgery Family History Mother No known health problems Father No known health problems Social History household members: spouse and family Smoking Status: Former smoker alcohol intake: former Smoking Status: Former smoker tobacco type: cigarettes alcohol intake frequency: holidays/special occasions only Exam Narrative Exam Narrative: GENERAL: in no distress, not toxic not dyspneic HEAD: Normocephalic. EYES: Pupils equal round ENT: Mucous membranes moist. NECK: Trachea midline. CARDIOVASCULAR: Regular rate and rhythm RESPIRATORY: Clear to auscultation. Breath sounds equal bilaterally. No wheezes, rales, or rhonchi. GASTROINTESTINAL: Abdomen soft, non-tender EXTREMITIES: No gross deformities. BACK: No flank tenderness. NEURO: AOx4. SKIN: Warm and dry PSYCH: Not anxious, is cooperative Initial Vital Signs Initial Vital Signs: Vital Signs Temperature 98 F 03/01/24 09:32 Pulse Rate 87 03/01/24 09:32 Respiratory Rate 18 03/01/24 09:32 Blood Pressure 158/71 H 03/01/24 09:32 Pulse Oximetry 100 03/01/24 09:32 Oxygen Delivery Method Room Air 03/01/24 09:32 Course Orders Ordered: Acetaminophen (Acetaminophen 325 Mg Tablet) 650 mg PO Q6H PRN PRN Reason: Fever/Mild Pain (1-3) Last Admin: 03/01/24 21:41 Dose: 650 mg Documented By: MM Aspirin (Aspirin Ec 81 Mg Tablet) 81 mg PO DAILY DEANNE Last Admin: 12/18/24 08:23 Dose: 81 mg Documented By: FABIENNE Diclofenac Sodium (Diclofenac 1% Gel 100 Gm) 1 applic TOP QID [facility] Last Admin: 03/02/24 08:23 Dose: Not Given Documented By: Admin: 03/01/24 21:31 Dose: 1 applic Documented By: Admin: 03/01/24 18:52 Dose: 1 applic Documented By: FABIENNE Hydrochlorothiazide (Hydrochlorothiazide 25 Mg Tablet) 12.5 mg PO DAILY [facility] Last Admin: 03/02/24 08:23 Dose: 12.5 mg Documented By: FABIENNE Hydromorphone HCl (Hydromorphone 2 Mg Tablet) 2 mg PO Q3H PRN PRN Reason: Pain, Severe (7-10) Last Admin: 03/01/24 16:26 Dose: 2 mg Documented By: FABIENNE Dextrose (D10w) 100 mls @ 999 mls/hr IV PRN PRN PRN Reason: Hypoglycemia Insulin Human Lispro (Insulin Lispro 100 Unit/Ml 3ml Vial) 0 unit SUBCUT [facility]; Protocol Last Admin: 03/02/24 08:19 Dose: Not Given Documented By: Admin: 03/01/24 20:18 Dose: Not Given Documented By: PRESLEY Losartan Potassium (Losartan 50 Mg Tablet) 50 mg PO DAILY [facility] Last Admin: 03/02/24 08:25 Dose: 50 mg Documented By: FABIENNE Multivitamins (Multivitamin 1 Tablet) 1 tab PO DAILY [facility] Last Admin: 03/02/24 08:23 Dose: 1 tab Documented By: FABIENNE Naloxone HCl (Naloxone 0.4 Mg/Ml Vial) 0.2 mg IV Q2MIN PRN PRN Reason: Opiate Reversal Olanzapine (Olanzapine 2.5 Mg Tablet) 20 mg PO BEDTIME [facility] Last Admin: 03/01/24 21:26 Dose: 20 mg Documented By: PRESLEY Ondansetron HCl (Ondansetron 4 Mg/2 Ml Inj) 4 mg IV Q8HR PRN PRN Reason: Nausea And Vomiting Discontinued Medications Aspirin (Aspirin 81 Mg Chew Tab) 324 mg PO NOW ONE Stop: 03/01/24 09:29 Last Admin: 03/01/24 10:03 Dose: 324 mg Documented By: JE Hydromorphone HCl (Hydromorphone 1 Mg Inj) 1 mg IV NOW ONE Stop: 03/01/24 11:56 Last Admin: 03/01/24 12:10 Dose: 1 mg Documented By: JACQUIE Magnesium Chloride (Magnesium Chloride 64 Mg Tablet) 128 mg PO NOW ONE Stop: 03/02/24 07:46 Last Admin: 03/02/24 08:29 Dose: 128 mg Documented By: FABIENNE Morphine Sulfate (Morphine 4 Mg/Ml Inj) 4 mg IV NOW ONE Stop: 03/01/24 10:34 Last Admin: 03/01/24 10:41 Dose: 4 mg Documented By: JE Nitroglycerin (Nitroglycerin Oint 1 Inch/Gm Oint...G.) 1 inch TOP NOW ONE Stop: 03/01/24 09:50 Last Admin: 03/01/24 10:02 Dose: 1 inch Documented By: JE Ondansetron HCl (Ondansetron 4 Mg/2 Ml Inj) 4 mg IV NOW ONE Stop: 03/01/24 09:50 Last Admin: 03/01/24 10:01 Dose: 4 mg Documented By: JE Vital Signs Vital signs: Vital Signs - 8 hr 03/01/24 09:32 03/01/24 09:32 03/01/24 09:32 Temperature 98 F Pulse Rate 87 88 Respiratory Rate 18 Blood Pressure 158/71 H 158/71 H Pulse Oximetry 100 100 Oxygen Delivery Method Room Air 03/01/24 10:00 03/01/24 10:00 03/01/24 10:30 Temperature Pulse Rate 73 71 Respiratory Rate 19 19 Blood Pressure 137/65 Pulse Oximetry 100 100 Oxygen Delivery Method 03/01/24 10:30 Temperature Pulse Rate Respiratory Rate Blood Pressure 152/66 H Pulse Oximetry Oxygen Delivery Method Room Air MDM - Chest Pain Lab Data 03/02/24 05:49 03/02/24 05:49 Labs: Lab Results 03/01/24 Range/Units 09:40 WBC 6.3 (4.5-11.0) X10^3/uL RBC 3.64 L (4.5-5.9) X10^6/uL Hgb 7.8 L (13.5-17.5) g/dL Hct 26.4 L (41-53) % MCV 72.4 L (80-100) fL MCH 21.4 L (26-34) PG MCHC 29.5 L (30-36) % RDW 17.9 H (11.6-14.8) % Plt Count 258 (150-400) X10^3/uL Neut % (Auto) 73.2 (50-75) % Lymph % (Auto) 19.8 L (25-40) % [place] % (Auto) 5.6 (3-14) % Eos % (Auto) 0.5 L (2-4) % Baso % (Auto) 0.9 (0-2) % Neut # (Auto) 4600 (5098-3392) /uL Lymph # (Auto) 1200 (7695-7132) /uL [place] # (Auto) 400 (0-900) /uL Eos # (Auto) 0 (0-450) /uL Baso # (Auto) 100 (0-100) /uL PT 13.5 H (9.4-12.5) SECONDS INR 1.2 (0.9-1.3) APTT 32 (25.1-36.5) SECONDS Sodium 137 (137-145) mmol/L Potassium 3.8 (3.4-5.1) mmol/L Chloride 107 (98-107) mmol/L Carbon Dioxide 23 (22-32) mmol/L BUN 12 (9-20) mg/dL Creatinine 0.85 (0.66-1.25) mg/dL Estimated GFR > 60 (>60) mL/min BUN/Creatinine Ratio 14.1 (6-22) Glucose 332 H (80-110) mg/dL Calcium 8.9 (8.4-10.2) mg/dL Magnesium 1.5 L (1.6-2.3) mg/dL Total Bilirubin 0.5 (0.2-1.3) mg/dL AST 23 (17-59) IU/L ALT 17 (<50) IU/L Alkaline Phosphatase 107 (38-126) U/L Total Creatine Kinase 53 L (55-170) U/L Troponin I < 0.012 (0.01-0.034) ng/mL NT-Pro-B Natriuret Pep 434 H (<125) pg/mL Total Protein 6.8 (6.3-8.2) g/dL Albumin 3.8 (3.5-5.0) g/dL Globulin 3.0 (1.7-4.1) g/dL Albumin/Globulin Ratio 1.3 (1.0-2.8) Lipase 32 (23-300) U/L Imaging Data Chest x-ray: Radiologist's Impression: [facility] [address] [place] [id number] XRay Report Signed Patient: Kristian Yin MR#: [id number] : 1955 Acct:[id number] Age/Sex: 69 / M Date of Service: 03/01/24 Loc: ED Accession Number: [id number] Procedure: XR chest 1V Ordering Provider: Ruy Watkins MD PROCEDURE: XR CHEST 1V INDICATIONS: chest pain TECHNIQUE: One view of the chest was acquired. COMPARISON: [facility], CR, XR CHEST 1V, 12/22/2023, 9:48. FINDINGS: Surgical changes and devices: None. Lungs and pleura: Lungs are clear. No pleural effusions or pneumothorax. Mediastinum: Mediastinal contours appear normal. Heart size is normal. Bones and chest wall: No suspicious bony lesions. Overlying soft tissues appear unremarkable. IMPRESSION: No acute pulmonary process. Dictated by: Brenda Crabtree M.D. on 03/01/2024 at 9:48 Approved by: Brenda Crabtree M.D. on 03/01/2024 at 9:48 [facility] Narrative Medical decision making narrative: Patient complains of chest pain that started 1 hour ago. Substernal that radiates to the back. No prior history of aortic dissection or aneurysm. Patient has history of PA without stents. Patient can take aspirin. Did not take it today. Does not have nitroglycerin at home. Patient sees cardiology [facility], dr sellers, for PA in the past. More than 5 years ago. No stents. Patient just had equivocal non nuclear echocardiogram weeks ago here. Has been doing well until today. Feel short of breath. No syncope. No nausea or sweating. After history and exam CBC CMP troponin EKG chest x-ray aspirin nitroglycerin, cardiology consult [facility] Medical records reviewed: Stress test 2 weeks ago here. Differential considered: Includes but not limited to STEMI non-STEMI angina Lab Test results independently reviewed as above. Pertinent findings: WBC 6.3 hemoglobin 7.8. Troponin less than 0.012 Independently reviewed EKG sinus rhythm rate [address] elevation or depression Imaging studies independently reviewed: Chest x-ray no acute finding Consultations: 10:45 a.m.. Spoke with Cardiology Dr. Moreno, admit patient for nuclear medicine stress test, no echocardiogram indicated as patient just had 1 2 weeks ago. 11:[address] Webb was here to see patient for admission. Treatments: Morphine Zofran aspirin nitroglycerin paste Re-evaluations: 11:00 a.m.. Updated patient, chest pain-free at this time. He understands he will be admitted overnight for 2 part test for stress test different from last time. Discussion: Appropriate for admission for chemical stress test. He did not have this 2 weeks ago. Cardiology service was contacted. Hospitalist was contacted. Diagnosis: Chest pain Discharge Plan Departure Patient Disposition: Admitted as Observation Clinical Impression: Chest pain Qualifiers: Chest pain type: unspecified Qualified Code(s): R07.9 - Chest pain, unspecified Admit Date/Time: 03/01/24 11:51 Admit Provider: Eddie Webb
[2024-03-01 09:58] LABS: INR 1.2 (0.9-1.3); Prothrombin Time 13.5 SECONDS (9.4-12.5)
[2024-03-01] MEDS: ONDANSETRON 4 MG/2 ML INJ IV (10:01)
[2024-03-01] MEDS: NITROGLYCERIN OINT 1 INCH/GM OINT...G. TOP (10:02)
[2024-03-01] MEDS: ASPIRIN 81 MG CHEW TAB 324 MG PO (10:03)
[2024-03-01 10:06] LABS: Alanine Aminotransferase 17 IU/L (<50); Albumin 3.8 g/dL (3.5-5.0); Albumin Globulin Ratio 1.3 (1.0-2.8); Alkaline Phosphatase 107 U/L (38-126); Aspartate Aminotransferase 23 IU/L (17-59); BUN Creatinine Ratio 14.1 (6-22); Bilirubin Total 0.5 mg/dL (0.2-1.3); Blood Urea Nitrogen 12 mg/dL (9-20); Calcium 8.9 mg/dL (8.4-10.2); Carbon Dioxide 23 mmol/L (22-32); Chloride 107 mmol/L (98-107); Creatine Kinase 53 U/L (55-170); Estimated Glomerular Filt Rate > 60 mL/min (>60); Glucose 332 mg/dL (80-110); HEMOLYSIS < 15 (0-50); Lipase 32 U/L (23-300); Magnesium 1.5 mg/dL (1.6-2.3); PTT Partial Thromboplastin Tim 32 SECONDS (25.1-36.5); Potassium 3.8 mmol/L (3.4-5.1); Sodium 137 mmol/L (137-145); Total Protein 6.8 g/dL (6.3-8.2)
[2024-03-01 10:18] LABS: NT-proBNP (BNP-Adult 18+) 434 pg/mL (<125); Troponin I < 0.012 ng/mL (0.01-0.034)
[2024-03-01] MEDS: MORPHINE 4 MG/ML INJ IV (10:41)
--- NOTE | 2024-03-01 10:55 | DI.NM.S_ITS ---
PROCEDURE: NM RAUDEL PERF SPECT R&S PHARM Rest and pharmacological stress myocardial perfusion SPECT with gated imaging and ejection fraction RADIOPHARMACEUTICAL: 27.4 mCi Tc-99m tetrafosmin IV at rest and 25.8 mCi Tc-99m tetrafosmin IV at peak effect of pharmacological stress. [id number] was performed. INDICATIONS: Chest pain TECHNIQUE: Radiopharmaceutical was injected at peak stress test, and also at rest. SPECT images were obtained. SPECT myocardial perfusion images were displayed in short axis, horizontal long axis, and vertical long axis views. Gated images were reviewed using [employer] software. COMPARISON: None. CARDIAC STRESS: A pharmacologic stress test was performed under the supervision of an attending staff, using an infusion of regadenoson 0.4 mg IV. Hemodynamic data: There is normal blood pressure and heart rate response to pharmacologic stress. Symptoms: The patient denied anginal chest pain. EKG: No diagnostic changes of ischemia; no ectopy. FINDINGS: Raw data: There is good myocardial uptake of radiotracer. No significant motion artifacts. [id number] ratio is 0.24 (normal is less than 0.38 for tetrafosmin tracer). Left ventricle function: Gated images demonstrate normal left ventricular wall thickening. No segmental wall motion abnormalities. No transient ischemic dilation; TID is 0.89 (normal less than 1.3). Left ventricle resting end diastolic volume is 113 mL. Left ventricle stress ejection fraction is 75%; normal range is above 45%. Myocardial perfusion: There is normal distribution of activity in the right and left ventricular myocardium. No fixed or reversible perfusion defects. IMPRESSION: Low risk study. No evidence of pharmacologic induced ischemia or scar. Normal LV size and function. Dictated by: Augustina Conde D.O. on 03/02/2024 at 15:47 Approved by: Augustina Conde D.O. on 03/17/2024 at 12:51
[2024-03-01] MEDS: HYDROMORPHONE 1 MG INJ IV (12:10)
--- NOTE | 2024-03-01 12:33 | PM.HP.1 ---
History of Present Illness History of Present Illness Date Patient Seen: 03/01/24 Chief complaint: chest pain Narrative: Kristian Yin is a 68yo M with PMH of GERD with gastric ulcer, prior gastric bypass, non-obstructive CAD, HTN, HLD, DM2, depression, chronic anemia, and kidney stones who presented with chest pain. He has previous history of costochondritis. He had a non-nuclear treadmill a few weeks ago as an outpatient which was unremarkable. He reports severe, sharp chest pain on the left side of his sternum. It is worse with inspiration. It is reproducible. Patient had resting portion of his study performed already in the ER, so he was admitted as he requires a two part study with the second portion tomorrow. Ordered for stress testing from the ER, underwent resting portion already, with stress portion planned for tomorrow. [facility] Medical History GERD (gastroesophageal reflux disease) HNP (herniated nucleus pulposus), lumbar History of bleeding ulcers Hypertriglyceridemia Non-insulin dependent type 2 diabetes mellitus HTN (hypertension) Nephrolithiasis Degenerative disc disease Surgical History History of vasectomy History of colonoscopy History of cholecystectomy History of gastric bypass History of cervical spinal surgery Status post lumbar surgery Family History Mother No known health problems Father No known health problems Social History household members: spouse and family Smoking Status: Former smoker alcohol intake: former Meds Home Medications and Allergies Home Medications Medication Instructions Recorded Confirmed Type multivitamin 1 tab PO DAILY 09/10/18 03/01/24 History olanzapine 20 mg tablet 20 mg PO BEDTIME 12/18/20 03/01/24 History acetaminophen 325 mg tablet 650 mg (2 x 325 mg) PO Q6H PRN 01/18/23 03/01/24 Rx Fever/Mild Pain (1-3) #50 tabs nitroglycerin 0.4 mg sublingual 0.4 mg sublingual [id number] PRN 01/18/23 03/01/24 Rx tablet (Nitrostat) Chest Pain #30 tabs metformin 1,000 mg tablet 500 mg PO BID 09/15/23 03/01/24 History aspirin 81 mg tablet,delayed 81 mg PO DAILY 03/01/24 03/01/24 History release (Adult Low Dose Aspirin) telmisartan 40 1 tab PO DAILY 03/01/24 03/01/24 History mg-hydrochlorothiazide 12.5 mg tablet (Micardis HCT) Allergies Allergy/AdvReac Type Severity Reaction Status Date / Time NSAIDS (Non-Steroidal AdvReac Mild CAN TAKE, Verified 07/16/23 11:02 Anti-Inflamma BUT TRIES [NSAIDS (NON-STEROIDAL TO AVOID ANTI-INFLAMMA] R/T GASTRIC BYPASS Review of Systems Review of Systems Narrative: All other systems reviewed with the patient and are negative unless otherwise stated. Exam Vital Signs (past 8 hours): - 03/01/24 09:32 03/01/24 09:32 03/01/24 09:32 Temperature 98 F Pulse Rate 87 88 Respiratory Rate 18 Blood Pressure 158/71 H 158/71 H Pulse Oximetry 100 100 Oxygen Delivery Method Room Air 03/01/24 10:00 03/01/24 10:00 03/01/24 10:30 Temperature Pulse Rate 73 71 Respiratory Rate 19 19 Blood Pressure 137/65 Pulse Oximetry 100 100 Oxygen Delivery Method 03/01/24 10:30 Temperature Pulse Rate Respiratory Rate Blood Pressure 152/66 H Pulse Oximetry Oxygen Delivery Method Room Air Oxygen Delivery Method Room Air Narrative Exam Narrative: GEN: no acute distress HEENT: moist mucous membranes, PERRL NECK: trachea midline, no JVD CV: regular rate and rhythm, no murmurs PULM: clear bilaterally ABD: soft, nontender, nondistended, no organomegaly EXT: warm and well perfused with no edema NEURO: awake, alert, oriented, no focal deficits Objective Labs 03/01/24 09:40 03/01/24 09:40 Labs: Laboratory Results - last 24 hr 03/01/24 09:40 WBC 6.3 RBC 3.64 L Hgb 7.8 L Hct 26.4 L MCV 72.4 L MCH 21.4 L MCHC 29.5 L RDW 17.9 H Plt Count 258 Neut % (Auto) 73.2 Lymph % (Auto) 19.8 L Douglas % (Auto) 5.6 Eos % (Auto) 0.5 L Baso % (Auto) 0.9 Neut # (Auto) 4600 Lymph # (Auto) 1200 Douglas # (Auto) 400 Eos # (Auto) 0 Baso # (Auto) 100 PT 13.5 H INR 1.2 APTT 32 Sodium 137 Potassium 3.8 Chloride 107 Carbon Dioxide 23 BUN 12 Creatinine 0.85 Estimated GFR > 60 BUN/Creatinine Ratio 14.1 Glucose 332 H Calcium 8.9 Magnesium 1.5 L Total Bilirubin 0.5 AST 23 ALT 17 Alkaline Phosphatase 107 Total Creatine Kinase 53 L Troponin I < 0.012 NT-Pro-B Natriuret Pep 434 H Total Protein 6.8 Albumin 3.8 Globulin 3.0 Albumin/Globulin Ratio 1.3 Lipase 32 Assessment & Plan Assessment & Plan narrative: # reproducible chest pain, recurrent costochondritis, nonobstructive CAD -worse with palpation of anterior chest wall over left sternum, suggesting noncardiac and more likely costchondritis. His pain was also alleviated with dilaudid. -patient has significant anxiety about his chest pain, also possibly contributing. -continue telemetry for now. Since the resting portion was already done, he can complete the activity portion tomorrow to definitively rule out cardiac etiology. His HEART score is technically intermediate risk at 4. -troponins negative, no changes are noted to his prior EKGs. ACS is highly unlikely. -TTE EF 55-60%, mild . Otherwise unremarkable, ordered in the ER. -continue home asa and statin -Patient is s/p C in 10/2021 which showed 20% LAD disease. He had recent outpatient treadmill ordered by attendance officer Dr. Santiago with limited exercise tolerance and induced chest pain but no EKG changes. -analgesia with tylenol and topical diclofenac for now. -A1c, lipid panel, TSH ordered # DM2 -hold home medications, and use SSI. Glucose in the 300s on admit -check A1c. # HTN - continue home micardis # depression -continue home olanzapine #history of gastric bypass - avoid NSAID use Code status is full code. DVT prophylaxis with SCDs. Proxy is spouse Cecy. I have reviewed home meds and used all available resources to reconcile the home meds. Case discussed with ED physician and patient will be admitted to the hospitalist service for further workup and management. This patient will be admitted as observation and will require less than 2 midnights of hospital time to treat atypical chest pain. Likely discharge home tomorrow. Time-Based Coding :: [TOTAL MINUTES] spent with patient and on the chart (including review of chart, obtaining history, exam, reviewing outside data, placing orders, documenting exam and treatment plan, and counseling patient) on [DATE].
--- NOTE | 2024-03-01 13:49 | PC.NURSE ---
Pt to room 205 via w/c and able to transfer to bed independently. Pt denies nausea or shortness of breath. States he is hungry. States he has central sharp chest pain 10/23-notified Dr. Webb via [facility]. Pt's blood sugar is 141 via finger check. Pt given a sandwich and yogurt to eat and then a lunch tray. Pt oriented to room, call light, bed controls and tv controls. Bed alarm on for safety-Pt states he had a fall in his very slippery chicken coop 2 days ago. Pt agrees to call for assistance as needed.
[2024-03-01 14:10] LABS: Troponin I < 0.012 ng/mL (0.01-0.034)
[2024-03-01] MEDS: HYDROMORPHONE 2 MG TABLET PO (16:26)
[2024-03-01] MEDS: DICLOFENAC 1% GEL 100 GM 1 APPLIC TOP ×2 (18:52→21:31)
[2024-03-01] MEDS: OLANZapine 2.5 MG TABLET 20 MG PO (21:26)
[2024-03-01] MEDS: ACETAMINOPHEN 325 MG TABLET 650 MG PO (21:41)
[2024-03-02] VITALS (8 sets, daily range): BP systolic 130–175; BP diastolic 78–105; PULSE 75–86; RESP 18–19; TEMP 36.2–37; O2SAT 95–98
[2024-03-02 06:21] LABS: Add Manual Diff / Slide Review NO; Basophils Absolute Auto 0 /uL (0-100); Basophils Percent Auto 0.3 % (0-2); Eosinophils Absolute Auto 100 /uL (0-450); Eosinophils Percent Auto 1.2 % (2-4); Hematocrit 24.7 % (41-53); Hemoglobin 7.4 g/dL (13.5-17.5); Lymphocytes Absolute Auto 1400 /uL (1100-4500); Mean Corpuscular HGB Conc 29.8 % (30-36); Mean Corpuscular Hemoglobin 21.3 PG (26-34); Mean Corpuscular Volume 71.3 fL (80-100); Monocytes Absolute Auto 600 /uL (0-900); Monocytes Percent Auto 9.2 % (3-14); Neutrophils Absolute Auto 4200 /uL (1500-7000); Neutrophils Percent Auto 67.3 % (50-75); Platelet Count 240 X10^3/uL (150-400); Red Blood Cell Count 3.47 X10^6/uL (4.5-5.9); Red Cell Distribution Width 17.5 % (11.6-14.8); White Blood Cell Count 6.3 X10^3/uL (4.5-11.0)
[2024-03-02 06:42] LABS: Blood Urea Nitrogen 18 mg/dL (9-20); Calcium 8.8 mg/dL (8.4-10.2); Carbon Dioxide 26 mmol/L (22-32); Chloride 108 mmol/L (98-107); Cholesterol 83 mg/dL (140-199); Estimated Glomerular Filt Rate > 60 mL/min (>60); Glucose 110 mg/dL (80-110); HDL Cholesterol 33 mg/dL (40-60); HEMOLYSIS < 15 (0-50); Hemoglobin A1C% w Est Avg Glu 6.6 % (4.0-6.0); LDL Cholesterol Calculated 35 mg/dL (<100); Magnesium 1.6 mg/dL (1.6-2.3); Potassium 4.1 mmol/L (3.4-5.1); Sodium 138 mmol/L (137-145); Triglycerides 76 mg/dL (35-150)
[2024-03-02 07:09] LABS: TSH w/ Reflex to FT4 0.79 uIU/mL (0.47-4.68)
[2024-03-02] MEDS: MULTIVITAMIN 1 TABLET 1 TAB PO (08:23)
[2024-03-02] MEDS: hydroCHLOROthiazide 25 MG TABLET 12.5 MG PO (08:23)
[2024-03-02] MEDS: ASPIRIN EC 81 MG TABLET PO (08:23)
[2024-03-02] MEDS: LOSARTAN 50 MG TABLET PO (08:25)
[2024-03-02] MEDS: MAGNESIUM CHLORIDE 64 MG TABLET 128 MG PO (08:29)
--- NOTE | 2024-03-02 11:15 | CM.DANOTE ---
Patient is a 69 yo male who was admitted OBS Status on 03/01/24 for Chest pain r/o. PCP: Shin José Payer: [employer] Per MD, pt received first part of stress test in ED and now to have second part before discharge home later today. Per RN, pt chest pain controlled and independent in room and tolerating diet and no concerns noted and anticipate d/c home no needs later today. Reviewed chart, met w/patient to introduce self and role. Patient reports he lives independently with spouse in [place], drives, and still works at [employer]. MIL/AMADOU live in the home as well. Pt's last admission was in Oct 2023 this year for GI Bleed and had EGD and then discharged home no needs. Patient denies needs from this CM team, plans to return home w/family, spouse to transport, patient appreciative for the visit. No barriers identified at this time to patient's safe discharge home w/family to assist; close outpatient f/u recommended. CM team will plan to follow clinical course closely in case any DC needs or concerns arise. ADAM Wan Discharge Planning/Care Management Advanced directive, confirm from FAMILY Start: 03/01/24 13:31 Freq: Q24H Status: Active Protocol: Document 03/01/24 13:31 CM (Rec: 03/01/24 13:32 CM [id number]) Advance Directive, confirm on record Time 13:32 Person contacted Pt Copy received No CM Discharge Assessment Start: 03/02/24 11:13 Freq: Status: Active Protocol: Document 03/02/24 11:14 BF (Rec: 03/02/24 11:15 BF [id number]) Discharge Planning Assessment Assigned Insulation Cupola Charger ADAM Vargas DPOA/Assigned Designee Name spouse Cecy Contact Information [phone] Advance Directives? No Advance Directives on File No History Provided By Patient,Medical Record Has Patient been admitted in last 30 No days? Comment Last admit in Oct 2023 for EGD and discharged home Prior Living Arrangements House Household Members spouse,family Type of transporation used prior to Drives own vehicle admit Independent with ADL's Yes Is patient alert and oriented? Yes Caregiver for Another No Comment N/A Barriers to Discharge No Discharge Plan Home Transportation Arrangement Spouse POV Referrals Initiated None needed Whiteboard Updated in Patient Room with Yes name and ext. # of Insulation Cupola Charger Review Status In Process Please Provide Date Initial DC 03/02/24 Assessment Was Performed Next Review Type Continued Stay Review
[2024-03-02] MEDS: DICLOFENAC 1% GEL 100 GM 1 APPLIC TOP (12:48)
--- NOTE | 2024-03-02 14:09 | P.DS_ITS ---
History of Present Illness History of Present Illness Chief complaint: chest pain Narrative: From H&P: Kristian Yin is a 68yo M with PMH of GERD with gastric ulcer, prior gastric bypass, non-obstructive CAD, HTN, HLD, DM2, depression, chronic anemia, and kidney stones who presented with chest pain. He has previous history of costochondritis. He had a non-nuclear treadmill a few weeks ago as an outpatient which was unremarkable. He reports severe, sharp chest pain on the left side of his sternum. It is worse with inspiration. It is reproducible. Patient had resting portion of his study performed already in the ER, so he was admitted as he requires a two part study with the second portion tomorrow. Ordered for stress testing from the ER, underwent resting portion already, with stress portion planned for tomorrow. Discharge Providers Provider Date of admission: 03/01/24 11:51 Discharge Date: 03/02/24 Primary care physician: Shin José PA-C Discharge provider: Edagr Blanco MD Summary Hospital Course Discharge Diagnosis: 1. Atypical chest pain, present on admission and active. 2. DM 2, present on admission and active. 3. HTN, present on admission and active. 4. Depression, present on admission stable. 5. Remote gatric bypass, present on admission and stable. Hospital Course: He was admitted with atypical chest pain which seemed consistent with costochondritis. Increased with palpation of the chest wall. He was treated with diclofenac gel which improved his symptoms substantially. He underwent a 2 day stress study which was read as low risk. He was felt to be stable for discharge with ongoing diclofenac gel. Status at Discharge Cognitive/behavioral status at discharge: oriented Functional status at discharge: independent ambulation Overall status at discharge: patient is back to baseline Time Spent with Patient Time spent: Greater than 30 minutes Exam Vital Signs (past 8 hours): - 03/02/24 08:00 03/02/24 08:00 03/02/24 08:25 Temperature 97.2 F L Pulse Rate 75 75 Respiratory Rate 18 Blood Pressure 160/105 H 160/105 H Pulse Oximetry 98 98 Oxygen Delivery Method Room Air Oxygen Flow Rate 0 0 03/02/24 09:30 03/02/24 13:00 Temperature 97.3 F L Pulse Rate 79 85 Respiratory Rate 18 Blood Pressure 149/83 H 175/88 H Pulse Oximetry 95 Oxygen Delivery Method Oxygen Flow Rate 0 Oxygen Delivery Method Room Air Oxygen Flow Rate 0 Narrative Exam Narrative: NAD, alert and oriented. Fluent speech. Lungs are clear, normal rate and effort. Heart is regular, no murmur gallop or rub. Abdomen is soft, non distended. Extremities are free of edema. Sternum is tender to palpation Objective ECG Impression: Left anterior fascicular block Minimal voltage criteria for LVH, may be normal variant ( R in aVL ) Imaging Multiple studies:: Radiologist's impression: Stress test: No evidence of exercise-induced EKG changes consistent with ischemia. Frequent exercise-induced PACs and PVCs noted lasting into recovery. Accelerated heart rate response. Normal blood pressure response. Exercise-induced chest discomfort. Reduced exercise capacity. ECHO: The left ventricle is normal in size. The left ventricular ejection fraction is normal. The ejection fraction is estimated to be 55-60%. The right ventricle is normal in size and function. The peak aortic velocity is 2.28 m/sec. The aortic valve mean gradient is 11.7 mmHg. The peak aortic velocity on the previous exam was 1.96 m/sec. There is mild aortic stenosis. There is mild tricuspid regurgitation. The right ventricular systolic pressure is estimated to be at least 37 mmHg based on an estimated right atrial pressure of 3 mm Hg. The ascending aorta is mildly enlarged. 3.9 cm in diameter. Previously 3.7 cm in diameter. BP: 179/87 mmHg Labs 03/02/24 05:49 03/02/24 05:49 Labs: Laboratory Results - last 24 hr 03/01/24 03/02/24 13:35 05:49 WBC 6.3 RBC 3.47 L Hgb 7.4 L Hct 24.7 L MCV 71.3 L MCH 21.3 L MCHC 29.8 L RDW 17.5 H Plt Count 240 Neut % (Auto) 67.3 Lymph % (Auto) 22.0 L [place] % (Auto) 9.2 Eos % (Auto) 1.2 L Baso % (Auto) 0.3 Neut # (Auto) 4200 Lymph # (Auto) 1400 [place] # (Auto) 600 Eos # (Auto) 100 Baso # (Auto) 0 Sodium 138 Potassium 4.1 Chloride 108 H Carbon Dioxide 26 BUN 18 Creatinine 0.90 Estimated GFR > 60 BUN/Creatinine Ratio 20.0 Glucose 110 D Hemoglobin A1c 6.6 H Calcium 8.8 Magnesium 1.6 Troponin I < 0.012 Triglycerides 76 Cholesterol 83 L LDL Cholesterol, Calc 35 HDL Cholesterol 33 L TSH 0.79 PFSH Medical History GERD (gastroesophageal reflux disease) HNP (herniated nucleus pulposus), lumbar History of bleeding ulcers Hypertriglyceridemia Non-insulin dependent type 2 diabetes mellitus HTN (hypertension) Nephrolithiasis Degenerative disc disease Surgical History History of vasectomy History of colonoscopy History of cholecystectomy History of gastric bypass History of cervical spinal surgery Status post lumbar surgery Family History Mother No known health problems Father No known health problems Social History household members: spouse and family Smoking Status: Former smoker alcohol intake: former Discharge Assessment & Plan Assessment and Plan Assessment: 1. Atypical chest pain, present on admission and active. 2. DM 2, present on admission and active. 3. HTN, present on admission and active. 4. Depression, present on admission stable. 5. Remote gatric bypass, present on admission and stable. Plan of Treatment: Stable for discharge home with close follow up with PCP. We will continue diclofenac gel b.i.d. for an additional several days. Tylenol as needed for pain. Discharge Plan Discharge Plan Patient Disposition: Home Discharge orders & Medications Prescriptions: New diclofenac sodium 1 % Gel 2.25 inch topical BID Qty: 60 0RF Continued acetaminophen 325 mg Tablet 650 mg PO Q6H PRN (Reason: Fever/Mild Pain (1-3)) Qty: 50 0RF nitroglycerin [Nitrostat] 0.4 mg Tablet, Sublingual 0.4 mg sublingual [id number] PRN (Reason: Chest Pain) Qty: 30 0RF metformin 1,000 mg tablet 500 mg PO BID aspirin [Adult Low Dose Aspirin] 81 mg Tablet,Delayed Release (Dr/Ec) 81 mg PO DAILY telmisartan-hydrochlorothiazid [Micardis HCT] 40-12.5 mg Tablet 1 tab PO DAILY multivitamin Tablet 1 tab PO DAILY olanzapine 20 mg tablet 20 mg PO BEDTIME Patient Comments: take 1 tablet by mouth at bedtime Follow up/Referrals: Shin José PA-C [Primary Care Provider] - Diet/Activity/Treatments Diet: Regular Visit Report/Discharge Packet Instructions: DI for Costochondritis, Diclofenac Topical (arthritis pain) Stand Alone Forms: Patient Portal/API, Work/Release Restrictions Discharge Data Primary Care Provider: Shin José Attending Provider: Eddie Webb Admjayde Date/Time: 03/01/24 11:51 Quality VTE Deep Vein Thrombosis/Pulmonary Embolism Present on Admission: No
--- NOTE | 2024-03-02 14:20 | PC.NURSE ---
Pt is dressed and ready for discharge home. Pt has his own vehicle here and states he feels fine to drive home. IV has been removed. Tele has been removed. Went over d/c instructions with Pt-discussed d/c meds, time of last dose, reviewed stroke education, encouraged Pt to drink fluids to prevent constipation or dehdyration and to follow up as needed with his PCP. 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
== END 2024-03-02 14:28 | disposition home or self-care (01) ==
LOC: ED 11:01 → AC 11:52
PROVIDERS: Admitting Provider Internal Medicine; Emergency Provider Emergency Medicine; PCP Student in an Organized Health Care Education/Training Program; Referring Provider Emergency Medicine; Visit Provider Internal Medicine
DX: R07.89 Other chest pain (principal); I25.2 Old myocardial infarction; I25.10 Atherosclerotic heart disease of native coronary artery without angina pectoris; E78.5 Hyperlipidemia, unspecified; K21.9 Gastro-esophageal reflux disease without esophagitis; E11.9 Type 2 diabetes mellitus without complications; F32.A Depression, unspecified; Z87.891 Personal history of nicotine dependence; Z98.84 Bariatric surgery status; Z79.84 Long term (current) use of oral hypoglycemic drugs
CPT/HCPCS: 36415; 71045; 78452; 80048; 80053; 80061; 82550; 82962; 83036; 83690; 83735; 83880; 84443; 84484; 85025; 85610; 85730; 93005; 93017; 96374; 96375; 99284; 99285; G0378; A9502; J1171; J2270; J2405; J2785

== ENCOUNTER 2024-04-25 10:32 | Inpatient (IN) | payer MEDICARE, OTHER, SELFPAY ==
[2024-03-01 13:15] VITALS: BMI 29.0
[2024-04-25] VITALS (43 sets, daily range): BP systolic 74–162; BP diastolic 50–92; PULSE 71–106; RESP 12–24; TEMP 36.1–36.9; O2SAT 94–100; BMI 29.0
[2024-04-25] MEDS: SODIUM CHLORIDE 0.9% 1,000 ML 1000 ML IV (10:53)
--- NOTE | 2024-04-25 10:54 | ED_ITS ---
HPI - General Adult General Chief complaint: Dizziness Stated complaint: balance issues, dizzy spells, neck/back pain Time Seen by Provider: 04/25/24 10:54 History of Present Illness HPI narrative: 69-year-old male reports history of anemia, had transfusion last year of 1 unit he reports, unclear cause, does not recall any active source of bleeding known at that time, admits to one-week duration of dark stools, last dark stool was yesterday, no bowel movement today, feels weak today. No nausea or vomiting, no hematemesis. He has not take blood thinner medications. No trauma injury new activities. His med list includes diclofenac. Denies history of liver problems cirrhosis. Denies problems with bleeding in the past. No recent nosebleeds. Denies chest pain or shortness of breath. Denies headache. Denies fevers or chills. Related Data Home Medications Medication Instructions Recorded Confirmed multivitamin 1 tab PO DAILY 09/10/18 04/25/24 olanzapine 20 mg tablet 20 mg PO BEDTIME 12/18/20 04/25/24 metformin 1,000 mg tablet 500 mg PO BID 09/15/23 04/25/24 aspirin 81 mg tablet,delayed 81 mg PO DAILY 03/01/24 04/25/24 release (Adult Low Dose Aspirin) telmisartan 40 1 tab PO DAILY 03/01/24 04/25/24 mg-hydrochlorothiazide 12.5 mg tablet (Micardis HCT) sertraline 100 mg tablet 100 mg PO DAILY 04/25/24 04/25/24 Previous Rx's Medication Instructions Recorded acetaminophen 325 mg tablet 650 mg (2 x 325 mg) PO Q6H PRN 01/18/23 Fever/Mild Pain (1-3) #50 tabs nitroglycerin 0.4 mg sublingual 0.4 mg sublingual [id number] PRN 01/18/23 tablet (Nitrostat) Chest Pain #30 tabs diclofenac sodium 1 % topical gel 2.25 inch topical BID sternal pain 03/02/24 #60 grams Allergies Allergy/AdvReac Type Severity Reaction Status Date / Time NSAIDS (Non-Steroidal AdvReac Mild CAN TAKE, Verified 07/16/23 11:02 Anti-Inflamma BUT TRIES [NSAIDS (NON-STEROIDAL TO AVOID ANTI-INFLAMMA] R/T GASTRIC BYPASS Patient History Medical History GERD (gastroesophageal reflux disease) HNP (herniated nucleus pulposus), lumbar History of bleeding ulcers Hypertriglyceridemia Non-insulin dependent type 2 diabetes mellitus HTN (hypertension) Nephrolithiasis Degenerative disc disease Surgical History History of vasectomy History of colonoscopy History of cholecystectomy History of gastric bypass History of cervical spinal surgery Status post lumbar surgery Family History Mother No known health problems Father No known health problems Social History household members: spouse and family Smoking Status: Former smoker alcohol intake: former Smoking Status: Former smoker tobacco type: cigarettes alcohol intake frequency: holidays/special occasions only Exam Narrative Exam Narrative: GENERAL: Well-developed patient, in mild distress. HEAD: Atraumatic. Normocephalic. EYES: Pupils equal round and reactive. Extraocular motions intact. No scleral icterus. No injection or drainage. ENT: Nose without bleeding, purulent drainage. Throat without erythema, tonsillar hypertrophy or exudate. Airway patent. NECK: Trachea midline. Non tender CARDIOVASCULAR: Regular rate and rhythm without murmurs, gallops, or rubs. RESPIRATORY: Clear to auscultation. Breath sounds equal bilaterally. No wheezes, rales, or rhonchi. GASTROINTESTINAL: Abdomen soft, non-tender, nondistended. EXTREMITIES: No edema or joint tenderness. BACK: Nontender without deformity or crepitance. No flank tenderness. NEURO: AOx3. Motor functions grossly nonfocal SKIN: No rash or erythema of visible areas Initial Vital Signs Initial Vital Signs: Vital Signs Pulse Oximetry 94 04/25/24 10:44 Course Orders Ordered: ED Orders 04/25/24 13:30 BMP [Basic Metabolic Panel] Stat Ketones (Beta-Hydroxybutyrate) Stat 04/25/24 14:14 Hemoglobin and Hematocrit Stat Acetaminophen (Acetaminophen 325 Mg Tablet) 650 mg PO Q6H PRN PRN Reason: Fever/Mild Pain (1-3) Sodium Chloride (Normal Saline 0.9%) 1,000 mls @ 100 mls/hr IV CONT DEANNE Last Admin: 04/25/24 17:03 Dose: 100 mls/hr Documented By: HOSSEIN Dextrose (D10w) 100 mls @ 999 mls/hr IV PRN PRN PRN Reason: Hypoglycemia Insulin Human Lispro (Insulin Lispro 100 Unit/Ml 3ml Vial) 0 unit SUBCUT ACHS [facility]; Protocol Last Admin: 04/25/24 21:29 Dose: 1 unit Documented By: AT Co-signed By: HOSSEIN Admin: 04/25/24 17:07 Dose: Not Given Documented By: HOSSEIN Multivitamins (Multivitamin 1 Tablet) 1 tab PO DAILY [facility] Naloxone HCl (Naloxone 0.4 Mg/Ml Vial) 0.2 mg IV Q2MIN PRN PRN Reason: Opiate Reversal Olanzapine (Olanzapine 2.5 Mg Tablet) 20 mg PO BEDTIME [facility] Last Admin: 04/25/24 21:23 Dose: 20 mg Documented By: AT Pantoprazole Sodium (Pantoprazole 40 Mg Vial) 40 mg IV BID [facility] Last Admin: 04/25/24 21:23 Dose: 40 mg Documented By: AT Sertraline HCl (Sertraline 50 Mg Tablet) 100 mg PO DAILY [facility] Discontinued Medications Sodium Chloride (Normal Saline 0.9%) 1,000 mls @ 1,000 mls/hr IV BOLUS ONE Stop: 04/25/24 11:56 Last Infusion: 04/25/24 11:35 Dose: Infused Documented By: Admin: 04/25/24 10:53 Dose: 1,000 mls/hr Documented By: SAADIA POTASSIUM CHLORIDE IN WATER (Potassium Cl 10 Meq/100 Ml Tamy) 10 meq in 100 mls @ 100 mls/hr IV Q1H [facility] Stop: 04/25/24 16:14 Last Admin: 04/25/24 17:04 Dose: 100 mls/hr Documented By: Infusion: 04/25/24 16:13 Dose: Infused Documented By: Admin: 04/25/24 15:14 Dose: 100 mls/hr Documented By: ALONA Ondansetron HCl (Ondansetron 4 Mg/2 Ml Inj) 4 mg IV NOW PRN PRN Reason: Nausea And Vomiting Ondansetron HCl (Ondansetron 4 Mg Odt) 4 mg SL NOW PRN PRN Reason: Nausea And Vomiting Pantoprazole Sodium (Pantoprazole 40 Mg Vial) 80 mg IV NOW ONE Stop: 04/25/24 10:51 Last Admin: 04/25/24 11:28 Dose: 80 mg Documented By: ALONA Pantoprazole Sodium (Pantoprazole 40 Mg Vial) 80 mg IV NOW ONE Stop: 04/25/24 10:58 Last Admin: 04/25/24 11:28 Dose: Not Given Documented By: ALONA Vital Signs Vital signs: Vital Signs - 8 hr 04/25/24 14:00 04/25/24 14:30 04/25/24 14:42 Pulse Rate 71 74 Respiratory Rate 15 16 Blood Pressure 120/69 Pulse Oximetry 100 100 04/25/24 14:42 04/25/24 15:00 04/25/24 15:00 Pulse Rate 83 75 Respiratory Rate 19 12 Blood Pressure 132/63 Pulse Oximetry 100 100 Medical Decision Making Lab Data Lab results reviewed: Yes I reviewed the patient's lab results. Lab results narrative: White blood cell count 9000, hemoglobin 7.9, platelets [id number] mildly elevated. BUN 30 with creatinine 1.8 elevated. Glucose 248. Potassium 3.2 low. Sodium 137. Anion gap 16. 04/25/24 14:14 04/25/24 13:30 Labs: Lab Results 04/25/24 04/25/24 04/25/24 Range/Units 10:50 12:50 13:30 WBC 9.0 (4.5-11.0) X10^3/uL RBC 3.77 L (4.5-5.9) X10^6/uL Hgb 7.9 L (13.5-17.5) g/dL Hct 26.4 L (41-53) % MCV 69.9 L (80-100) fL MCH 20.8 L (26-34) PG MCHC 29.8 L (30-36) % RDW 18.3 H (11.6-14.8) % Plt Count 525 H (150-400) X10^3/uL Neut % (Auto) 84.6 H (50-75) % Lymph % (Auto) 9.9 L (25-40) % Estill % (Auto) 5.1 (3-14) % Eos % (Auto) 0.1 L (2-4) % Baso % (Auto) 0.3 (0-2) % Neut # (Auto) 7600 H (3059-4681) /uL Lymph # (Auto) 900 L (2267-4479) /uL Estill # (Auto) 500 (0-900) /uL Eos # (Auto) 0 (0-450) /uL Baso # (Auto) 0 (0-100) /uL RBC Morphology See below Hypochromasia 2+ H Anisocytosis 1+ H Microcytosis 2+ H Ovalocytes 1+ H PT 12.5 (9.4-12.5) SECONDS INR 1.1 (0.9-1.3) APTT 29 (25.1-36.5) SECONDS Sodium 137 136 L (137-145) mmol/L Potassium 3.2 L 3.3 L (3.4-5.1) mmol/L Chloride 104 102 (98-107) mmol/L Carbon Dioxide 17 L 16 L (22-32) mmol/L BUN 30 H 31 H (9-20) mg/dL Creatinine 1.83 H 1.83 H (0.66-1.25) mg/dL Estimated GFR 39 L 39 L (>60) mL/min BUN/Creatinine Ratio 16.4 16.9 (6-22) Glucose 248 H 243 H (80-110) mg/dL Calcium 9.0 9.2 (8.4-10.2) mg/dL Total Bilirubin 0.4 (0.2-1.3) mg/dL AST 33 (17-59) IU/L ALT 31 (<50) IU/L Alkaline Phosphatase 121 (38-126) U/L Total Protein 7.1 (6.3-8.2) g/dL Albumin 4.0 (3.5-5.0) g/dL Globulin 3.1 (1.7-4.1) g/dL Albumin/Globulin Ratio 1.3 (1.0-2.8) Stool Occult Blood Negative (Negative) Stl C. cayetanensis PCR Not detected (Not Detect) Stool Rotavirus (PCR) Not detected (Not Detect) Stool Adenovirus (PCR) Not detected (Not Detect) Stool Astrovirus (PCR) Not detected (Not Detect) Stool Cryptosporidium PCR Not detected (Not Detect) Stl E.coli Shiga Tox PCR Not detected (Not Detect) St Sh/Enteroin Ecoli PCR Not detected (Not Detect) Stl Enterotoxigenic E PCR Not detected (Not Detect) Stool EPEC (PCR) Not detected (Not Detect) Stl E. histolytica PCR Not detected (Not Detect) Stool Giardia Lamblia PCR Not detected (Not Detect) Stool Sapovirus (PCR) Not detected (Not Detect) Stl P. shigelloides PCR Not detected (Not Detect) St Y.enterocolitica PCR Not detected (Not Detect) Stool Vibrio (PCR) Not detected (Not Detect) Stl Vibrio cholerae PCR Not detected (Not Detect) Stl Enteroaggr Ecoli PCR Not detected (Not Detect) Stl Norovirus GI/GII PCR Not detected (Not Detect) Ketones 0.12 (<0.27) mmol/L Campylobacter (PCR) Not detected (Not Detect) C. difficile Tox (PCR) Not detected (Not Detect) Salmonella (PCR) Not detected (Not Detect) Blood Type O Positive Antibody Screen Negative Crossmatch See Detail 04/25/24 Range/Units 14:14 WBC (4.5-11.0) X10^3/uL RBC (4.5-5.9) X10^6/uL Hgb 8.2 L (13.5-17.5) g/dL Hct 26.6 L (41-53) % MCV (80-100) fL MCH (26-34) PG MCHC (30-36) % RDW (11.6-14.8) % Plt Count (150-400) X10^3/uL Neut % (Auto) (50-75) % Lymph % (Auto) (25-40) % Estill % (Auto) (3-14) % Eos % (Auto) (2-4) % Baso % (Auto) (0-2) % Neut # (Auto) (9483-0264) /uL Lymph # (Auto) (6632-3292) /uL Estill # (Auto) (0-900) /uL Eos # (Auto) (0-450) /uL Baso # (Auto) (0-100) /uL RBC Morphology Hypochromasia Anisocytosis Microcytosis Ovalocytes PT (9.4-12.5) SECONDS INR (0.9-1.3) APTT (25.1-36.5) SECONDS Sodium (137-145) mmol/L Potassium (3.4-5.1) mmol/L Chloride (98-107) mmol/L Carbon Dioxide (22-32) mmol/L BUN (9-20) mg/dL Creatinine (0.66-1.25) mg/dL Estimated GFR (>60) mL/min BUN/Creatinine Ratio (6-22) Glucose (80-110) mg/dL Calcium (8.4-10.2) mg/dL Total Bilirubin (0.2-1.3) mg/dL AST (17-59) IU/L ALT (<50) IU/L Alkaline Phosphatase (38-126) U/L Total Protein (6.3-8.2) g/dL Albumin (3.5-5.0) g/dL Globulin (1.7-4.1) g/dL Albumin/Globulin Ratio (1.0-2.8) Stool Occult Blood (Negative) Stl C. cayetanensis PCR (Not Detect) Stool Rotavirus (PCR) (Not Detect) Stool Adenovirus (PCR) (Not Detect) Stool Astrovirus (PCR) (Not Detect) Stool Cryptosporidium PCR (Not Detect) Stl E.coli Shiga Tox PCR (Not Detect) St Sh/Enteroin Ecoli PCR (Not Detect) Stl Enterotoxigenic E PCR (Not Detect) Stool EPEC (PCR) (Not Detect) Stl E. histolytica PCR (Not Detect) Stool Giardia Lamblia PCR (Not Detect) Stool Sapovirus (PCR) (Not Detect) Stl P. shigelloides PCR (Not Detect) St Y.enterocolitica PCR (Not Detect) Stool Vibrio (PCR) (Not Detect) Stl Vibrio cholerae PCR (Not Detect) Stl Enteroaggr Ecoli PCR (Not Detect) Stl Norovirus GI/GII PCR (Not Detect) Ketones (<0.27) mmol/L Campylobacter (PCR) (Not Detect) C. difficile Tox (PCR) (Not Detect) Salmonella (PCR) (Not Detect) Blood Type Antibody Screen Crossmatch Point of Care Testing Stool Occult Blood Negative Urine Dip Bedside Urine Glucose Negative Bedside Urine Bilirubin - Negative Bedside Urine Ketone - Negative Urine Specific [place] 1.010 Bedside Urine Occult Blood - Negative Bedside Urine pH 6 Bedside Urine Protein - Negative Bedside Urine Urobilinogen - Negative Bedside Urine Nitrite - Negative Bedside Urine Leukocytes - Negative Esterase Point of care testing: Point of Care Testing Stool Occult Blood Negative Urine Dip Bedside Urine Glucose Negative Bedside Urine Bilirubin - Negative Bedside Urine Ketone - Negative Urine Specific [place] 1.010 Bedside Urine Occult Blood - Negative Bedside Urine pH 6 Bedside Urine Protein - Negative Bedside Urine Urobilinogen - Negative Bedside Urine Nitrite - Negative Bedside Urine Leukocytes - Negative Esterase Imaging Data CT angiogram chest abdomen and pelvis: Radiologist's Impression: [address] [address] [address] Scan Report Signed Patient: Kristian Yin MR#: [id number] : 1955 Acct:[id number] Age/Sex: 69 / M Date of Service: 04/25/24 Loc: ED Accession Number: [id number] Procedure: CT angio chest abdomen pelvis Ordering Provider: Thierry Novoa MD PROCEDURE: CT ANGIO CHEST ABDOMEN PELVIS INDICATIONS: low BP recent dk stool, Hb 7, aortogram TECHNIQUE: Precontrast 5 mm thick sections acquired from the lung apices to the iliac crests. After the administration of intravenous contrast, 2.5 mm thick sections again acquired from the lung apices to the iliac crests. Maximum intensity projection (MIP) oblique sagittal and coronal reformats were then acquired. For radiation dose reduction, the following was used: automated exposure control. COMPARISON: [facility], CT, CT ANGIO CHEST ABDOMEN PELVIS, 12/22/2023, 12:11. FINDINGS: Image quality: Diagnostic. AORTA: No aortic aneurysm. No acute aortic syndrome. CHEST: Lower Neck: No enlarged lymph nodes. Thyroid: No thyroid nodules which require sonographic evaluation. Axillae: No enlarged lymph nodes. Chest Wall: Unremarkable. Lungs and Pleura: No pneumothorax or pleural effusions. No consolidation or suspicious nodules. Heart: Heart size is normal. No pericardial effusion. Thoracic Vessels: Pulmonary arteries demonstrate normal size. Mediastinum and Donna: No enlarged lymph nodes. Esophagus: No wall thickening. Moderate hiatal hernia. ABDOMEN: Liver: No solid mass. Gallbladder: Removed. Biliary ducts: No biliary dilation. Pancreas: No ductal dilation. Spleen: Size is within normal limits. Adrenal Glands: No adrenal nodules. Kidneys and Ureters: No hydronephrosis. Unchanged nonobstructing right renal calcification. Stomach and Bowel: Normal colonic caliber, without significant wall thickening. Peritoneum: No abnormal intraperitoneal fluid. No free air. Ventral Wall: Infraumbilical bowel containing hernia without evidence of incarceration, strangulation or obstruction. Abdominal Nodes: No retroperitoneal or mesenteric adenopathy by size criteria. Vessels: Inferior vena cava is normal in size. PELVIS: Pelvic Organs: Unremarkable. Bladder: Unremarkable. Pelvic Nodes: No enlarged lymph nodes. Miscellaneous: No inguinal hernias are seen. Bones: Lower lumbar fusion. IMPRESSION: Prominent umbilical hernia without obstruction. Nonobstructing right renal calculus, unchanged. No bowel inflammation identified. Dictated by: Brenda Crabtree M.D. on 04/25/2024 at 12:36 Approved by: Brenda Crabtree M.D. on 04/25/2024 at 12:42 ECG Data Attestation: I personally reviewed and interpreted this ECG as follows: Interpretation: Normal sinus rhythm with premature supraventricular complexes, incomplete right bundle branch block, left anterior fascicular block. AL 156, QRS 102, QTC 467. MDM Narrative Medical decision making narrative: 69-year-old male with recent dark stools felt weak and dizzy today, no bowel movement today, no recent vomiting or hematemesis, no recent nosebleeds, no known coagulopathy, takes baby aspirin daily, diclofenac noted to be on his medication list. No problems with his aorta known. No injury or trauma. Afebrile, low blood pressure noted, with tachycardia. Consider blood loss anemia, versus sepsis versus other. Labs pending. Consider advanced imaging to look for source of blood loss. Hemoglobin 7.9 noted, with hypotension systolic blood pressure 70, IV fluid bolus initiated, type cross transfuse 1st unit packed cells ordered, type and screen for further blood if ordered. Keep NPO. GFR 39 noted, IV fluid bolus given. CT angiogram chest abdomen and pelvis ordered. Keep NPO. IV Protonix 80 mg bolus. Potassium level low, keep NPO, IV KCl rider while NPO. First unit packed red blood cells pending. Systolic blood pressure 100 after crystalloid. Stool guaiac sent to lab here was negative. CTA chest abdomen and pelvis ordered. CT angio chest abdomen and pelvis. Impressions: ?Prominent umbilical hernia without obstruction. Nonobstructing right renal calculus unchanged. No bowel inflammation identified.? No mention of any free fluid or aortic pathology. See radiology report. Systolic blood pressure 120, heart rate 90s, blood pressure improved after 1st unit PRBCs. No active external GI bleeding noted. CTA chest abdomen pelvis negative. Hold 2nd unit transfusion for now. We will repeat H&H. Consult surgery regarding endoscopy, possible admission. PCP Shin ayala in [place], anticipate communication with hospitalist here, patient okay with being admitted here. We will consult surgery regarding possible endoscopy. 141, case discussed with surgery Dr. Stuart who was able to determine by chart review patient has had actually had previous upper GI bleeding, October 2023, and a prior gastric bypass, could have marginal ulcer at this time, but in October had recently bleeding gastric ulcer, was discharged on Protonix twice daily and advised to continue Protonix daily. Aware of patient hypotension, likely source of upper GI bleeding, he can consult if needed but not anticipated to need endoscopy for source of bleeding. We will consult hospitalist regarding admission for further monitoring since patient presented with hypotension. 1430, case discussed with Dr. Webb, he will come consult on patient in the emergency department. 151, call back from Dr. Webb, who did consult, accepts patient for admission to observation Critical Care Time Critical Care Time Critical Care Time: Yes Total Critical Care Time: 35 Attestation: The high probability of a clinically significant, sudden or life threatening deterioration of the [gastrointestinal, abdominopelvic, hematologica, cardovascular] systems required my full and direct attention, intervention and personal management. The aggregate critical care time was [35] minutes. This time is in addition to time spent performing reported procedures but includes the following: [x] Data Review and interpretation [x] Patient assessment and monitoring of vital signs [x] Documentation [x] Medication orders and management Discharge Plan Departure Patient Disposition: Admitted as Observation Clinical Impression: Anemia due to blood loss, Melanotic stools, History of gastric ulcer, History of gastric bypass, Acute hypokalemia Admit Date/Time: 04/25/24 15:10 Admit Provider: Eddie Webb
[2024-04-25 11:11] LABS: Add Manual Diff / Slide Review NO; Basophils Absolute Auto 0 /uL (0-100); Basophils Percent Auto 0.3 % (0-2); Eosinophils Absolute Auto 0 /uL (0-450); Eosinophils Percent Auto 0.1 % (2-4); Hematocrit 26.4 % (41-53); Hemoglobin 7.9 g/dL (13.5-17.5); INR 1.1 (0.9-1.3); Lymphocytes Absolute Auto 900 /uL (1100-4500); Lymphocytes Percent Auto 9.9 % (25-40); Mean Corpuscular HGB Conc 29.8 % (30-36); Mean Corpuscular Hemoglobin 20.8 PG (26-34); Mean Corpuscular Volume 69.9 fL (80-100); Monocytes Absolute Auto 500 /uL (0-900); Monocytes Percent Auto 5.1 % (3-14); Neutrophils Absolute Auto 7600 /uL (1500-7000); Neutrophils Percent Auto 84.6 % (50-75); Platelet Count 525 X10^3/uL (150-400); Prothrombin Time 12.5 SECONDS (9.4-12.5); Red Blood Cell Count 3.77 X10^6/uL (4.5-5.9); Red Cell Distribution Width 18.3 % (11.6-14.8)
--- NOTE | 2024-04-25 11:11 | EKG_ITS ---
[facility] [address] [place] [address] Test Date: 2024-04-25 Pat Name: Kristian Yin Department: [facility] Room: Gender: Male Customer Experience Intern: SHIRIN : 1955 Requested By: Order Number: [id number] Reading MD: Al Loja MD Measurements Intervals Huggins Rate: 83 P: -11 OR: 156 QRS: -55 QRSD: 102 T: 73 QT: 398 QTc: 467 Interpretive Statements Sinus rhythm with premature supraventricular complexes Incomplete right bundle branch block Left anterior fascicular block Minimal voltage criteria for LVH, may be normal variant ( R in aVL ) Electronically Signed On 04-25-2024 12:10:14 PST by Al Loja MD
[2024-04-25 11:14] LABS: PTT Partial Thromboplastin Tim 29 SECONDS (25.1-36.5)
[2024-04-25 11:15] LABS: Alanine Aminotransferase 31 IU/L (<50); Albumin Globulin Ratio 1.3 (1.0-2.8); Alkaline Phosphatase 121 U/L (38-126); Aspartate Aminotransferase 33 IU/L (17-59); BUN Creatinine Ratio 16.4 (6-22); Bilirubin Total 0.4 mg/dL (0.2-1.3); Blood Urea Nitrogen 30 mg/dL (9-20); Carbon Dioxide 17 mmol/L (22-32); Chloride 104 mmol/L (98-107); Estimated Glomerular Filt Rate 39 mL/min (>60); Globulin 3.1 g/dL (1.7-4.1); Glucose 248 mg/dL (80-110); HEMOLYSIS < 15 (0-50); Potassium 3.2 mmol/L (3.4-5.1); Sodium 137 mmol/L (137-145); Total Protein 7.1 g/dL (6.3-8.2)
[2024-04-25] MEDS: PANTOPRAZOLE 40 MG VIAL 80 MG IV (11:28)
[2024-04-25 11:35] LABS: Anisocytosis 1+
[2024-04-25 11:36] LABS: Microcytosis 2+
[2024-04-25 11:37] LABS: Hypochromasia 2+; Ovalocytes 1+
--- NOTE | 2024-04-25 11:45 | DI.CT.S_ITS ---
PROCEDURE: CT ANGIO CHEST ABDOMEN PELVIS INDICATIONS: low BP recent dk stool, Hb 7, aortogram TECHNIQUE: Precontrast 5 mm thick sections acquired from the lung apices to the iliac crests. After the administration of intravenous contrast, 2.5 mm thick sections again acquired from the lung apices to the iliac crests. Maximum intensity projection (MIP) oblique sagittal and coronal reformats were then acquired. For radiation dose reduction, the following was used: automated exposure control. COMPARISON: [facility], CT, CT ANGIO CHEST ABDOMEN PELVIS, 12/22/2023, 12:11. FINDINGS: Image quality: Diagnostic. AORTA: No aortic aneurysm. No acute aortic syndrome. CHEST: Lower Neck: No enlarged lymph nodes. Thyroid: No thyroid nodules which require sonographic evaluation. Axillae: No enlarged lymph nodes. Chest Wall: Unremarkable. Lungs and Pleura: No pneumothorax or pleural effusions. No consolidation or suspicious nodules. Heart: Heart size is normal. No pericardial effusion. Thoracic Vessels: Pulmonary arteries demonstrate normal size. Mediastinum and Donna: No enlarged lymph nodes. Esophagus: No wall thickening. Moderate hiatal hernia. ABDOMEN: Liver: No solid mass. Gallbladder: Removed. Biliary ducts: No biliary dilation. Pancreas: No ductal dilation. Spleen: Size is within normal limits. Adrenal Glands: No adrenal nodules. Kidneys and Ureters: No hydronephrosis. Unchanged nonobstructing right renal calcification. Stomach and Bowel: Normal colonic caliber, without significant wall thickening. Peritoneum: No abnormal intraperitoneal fluid. No free air. Ventral Wall: Infraumbilical bowel containing hernia without evidence of incarceration, strangulation or obstruction. Abdominal Nodes: No retroperitoneal or mesenteric adenopathy by size criteria. Vessels: Inferior vena cava is normal in size. PELVIS: Pelvic Organs: Unremarkable. Bladder: Unremarkable. Pelvic Nodes: No enlarged lymph nodes. Miscellaneous: No inguinal hernias are seen. Bones: Lower lumbar fusion. IMPRESSION: Prominent umbilical hernia without obstruction. Nonobstructing right renal calculus, unchanged. No bowel inflammation identified. Dictated by: Brenda Crabtree M.D. on 04/25/2024 at 12:36 Approved by: Brenda Crabtree M.D. on 04/25/2024 at 12:42
--- NOTE | 2024-04-25 12:42 | PC.NURSE ---
stand and pivot w only standby assist by rn to bedside commode for feeling of need to have bm, patient declined bedpan previously, Vitals have remained stable, without severe hypotension recently, denies feeling increased dizziness with sitting or standing
[2024-04-25 13:40] LABS: Occult Blood 1 Negative (Negative); Sample 1 Time 1300
[2024-04-25 13:49] LABS: Ketones (Beta-Hydroxybutyrate) 0.12 mmol/L (<0.27)
[2024-04-25 14:18] LABS: Adenovirus F 40/41 Not Detected (Not Detect); Astrovirus Not Detected (Not Detect); Campylobacter Not Detected (Not Detect); Clostridium difficile toxin AB Not Detected (Not Detect); Cryptosporidium Not Detected (Not Detect); Cyclospora cayetanensis Not Detected (Not Detect); Entamoeba histolytica Not Detected (Not Detect); Enteroaggregative E.coli Not Detected (Not Detect); Enteropathogenic E.coli Not Detected (Not Detect); Enterotoxigenic E.coli It/st Not Detected (Not Detect); Giardia lamblia Not Detected (Not Detect); Norovirus GI/GII Not Detected (Not Detect); Plesiomonsa shigelloides Not Detected (Not Detect); Rotavirus A Not Detected (Not Detect); Salmonella Not Detected (Not Detect); Sapovirus Not Detected (Not Detect); Shiga-like toxin-prod E.coli Not Detected (Not Detect); Shigella/Enteroinvasive E.coli Not Detected (Not Detect); Vibrio Not Detected (Not Detect); Vibrio cholerae Not Detected (Not Detect); Yersinia enterocolitica Not Detected (Not Detect)
[2024-04-25 14:20] LABS: Hematocrit 26.6 % (41-53); Hemoglobin 8.2 g/dL (13.5-17.5)
--- NOTE | 2024-04-25 14:30 | PC.NURSE ---
Dr Webb @ Bedside
--- NOTE | 2024-04-25 14:47 | PM.CALLCOV.1 ---
Call Coverage Note Note Narrative of Care Provided: 69 M ER provider has contacted about observation admission. Decision for admission will depend on repeat BMP after my evaluation in the ER now. He reports his dark stool stopped two days ago. He did well without significant drop in BP with bedside RN. GI panel is negative. He has a PMH of orthostatic hypotension in the past with very similar presentations previously. Depending on repeat Cr on bmp will decide if patient is okay for observation or to recommend discharge home. Full H&P or consult note to follow.
[2024-04-25 14:50] LABS: BUN Creatinine Ratio 16.9 (6-22); Blood Urea Nitrogen 31 mg/dL (9-20); Calcium 9.2 mg/dL (8.4-10.2); Carbon Dioxide 16 mmol/L (22-32); Chloride 102 mmol/L (98-107); Estimated Glomerular Filt Rate 39 mL/min (>60); Glucose 243 mg/dL (80-110); HEMOLYSIS < 15 (0-50); Potassium 3.3 mmol/L (3.4-5.1); Sodium 136 mmol/L (137-145)
[2024-04-25] MEDS: POTASSIUM CHLORIDE IN WATER 10 MEQ/100 ML PIGGYBACK 100 MEQ IV ×2 (15:14→17:04)
--- NOTE | 2024-04-25 15:23 | P.HP_ITS ---
History of Present Illness History of Present Illness Date Patient Seen: 04/25/24 Time Patient Seen: 14:40 Chief complaint: balance issues, dizzy spells, neck/back pain Narrative: Kristian Yin is a 68yo M with PMH of GERD with gastric ulcer, prior gastric bypass, non-obstructive CAD, HTN, HLD, DM2, depression, chronic anemia, and kidney stones who presented with dizziness and reports of melena that stopped 2 days ago. Patient reports the last two days he has felt dizziness, primarily with ambulation. He denies any chest pain or pressure. He denies any abdominal pain, nausea, vomiting, diarrhea. He does endorse dark stools that started about a week ago but subsequently resolved 2 days ago. In the emergency room he had a negative guaiac evaluation and he was able to ambulate at bedside with nursing staff. Laboratory evaluation did show creatinine of 1.8 up from his usual baseline. Repeat showed the exact same creatinine at 1.83. He was admitted for observation. Urine dipstick was negative per ER nurse at bedside. [facility] Medical History GERD (gastroesophageal reflux disease) HNP (herniated nucleus pulposus), lumbar History of bleeding ulcers Hypertriglyceridemia Non-insulin dependent type 2 diabetes mellitus HTN (hypertension) Nephrolithiasis Degenerative disc disease Surgical History History of vasectomy History of colonoscopy History of cholecystectomy History of gastric bypass History of cervical spinal surgery Status post lumbar surgery Family History Mother No known health problems Father No known health problems Social History household members: spouse and family Smoking Status: Former smoker alcohol intake: former Meds Home Medications and Allergies Home Medications Medication Instructions Recorded Confirmed Type multivitamin 1 tab PO DAILY 09/10/18 04/25/24 History olanzapine 20 mg tablet 20 mg PO BEDTIME 12/18/20 04/25/24 History acetaminophen 325 mg tablet 650 mg (2 x 325 mg) PO Q6H PRN 01/18/23 04/25/24 Rx Fever/Mild Pain (1-3) #50 tabs nitroglycerin 0.4 mg sublingual 0.4 mg sublingual [id number] PRN 01/18/23 04/25/24 Rx tablet (Nitrostat) Chest Pain #30 tabs metformin 1,000 mg tablet 500 mg PO BID 09/15/23 04/25/24 History aspirin 81 mg tablet,delayed 81 mg PO DAILY 03/01/24 04/25/24 History release (Adult Low Dose Aspirin) telmisartan 40 1 tab PO DAILY 03/01/24 04/25/24 History mg-hydrochlorothiazide 12.5 mg tablet (Micardis HCT) diclofenac sodium 1 % topical gel 2.25 inch topical BID sternal pain 03/02/24 04/25/24 Rx #60 grams sertraline 100 mg tablet 100 mg PO DAILY 04/25/24 04/25/24 History Allergies Allergy/AdvReac Type Severity Reaction Status Date / Time NSAIDS (Non-Steroidal AdvReac Mild CAN TAKE, Verified 07/16/23 11:02 Anti-Inflamma BUT TRIES [NSAIDS (NON-STEROIDAL TO AVOID ANTI-INFLAMMA] R/T GASTRIC BYPASS Review of Systems Review of Systems Narrative: All other systems reviewed with the patient and are negative unless otherwise stated. Exam Vital Signs (past 8 hours): - 04/25/24 10:44 04/25/24 10:45 04/25/24 10:45 Temperature Pulse Rate 101 H Respiratory Rate Blood Pressure 84/50 L Pulse Oximetry 94 98 Oxygen Delivery Method Room Air 04/25/24 10:50 04/25/24 10:51 04/25/24 10:51 Temperature 98.1 F Pulse Rate 102 H 93 H Respiratory Rate 20 16 Blood Pressure 84/50 L 74/51 L Pulse Oximetry 100 99 Oxygen Delivery Method Room Air 04/25/24 11:00 04/25/24 11:00 04/25/24 11:06 Temperature Pulse Rate 85 Respiratory Rate 17 Blood Pressure 91/53 L 96/53 L Pulse Oximetry 98 Oxygen Delivery Method Room Air 04/25/24 11:06 04/25/24 11:10 04/25/24 11:10 Temperature Pulse Rate 84 84 Respiratory Rate 16 16 Blood Pressure 99/53 L Pulse Oximetry 99 98 Oxygen Delivery Method 04/25/24 11:15 04/25/24 11:15 04/25/24 11:20 Temperature Pulse Rate 84 Respiratory Rate 17 Blood Pressure 102/54 L 105/56 L Pulse Oximetry 99 Oxygen Delivery Method Room Air 04/25/24 11:20 04/25/24 11:25 04/25/24 11:25 Temperature Pulse Rate 85 84 Respiratory Rate 16 15 Blood Pressure 104/58 L Pulse Oximetry 99 99 Oxygen Delivery Method 04/25/24 11:30 04/25/24 11:30 04/25/24 11:35 Temperature Pulse Rate 84 83 Respiratory Rate 16 15 Blood Pressure 104/57 L Pulse Oximetry 100 99 Oxygen Delivery Method 04/25/24 11:35 04/25/24 11:40 04/25/24 11:40 Temperature Pulse Rate 84 Respiratory Rate 18 Blood Pressure 105/58 L 111/64 Pulse Oximetry 100 Oxygen Delivery Method 04/25/24 11:45 04/25/24 11:45 04/25/24 11:50 Temperature Pulse Rate 88 Respiratory Rate 15 Blood Pressure 98/57 L 97/55 L Pulse Oximetry 100 Oxygen Delivery Method 04/25/24 11:50 04/25/24 11:55 04/25/24 11:55 Temperature Pulse Rate 85 91 H Respiratory Rate 15 18 Blood Pressure 98/57 L Pulse Oximetry 100 100 Oxygen Delivery Method 04/25/24 12:13 04/25/24 12:13 04/25/24 12:15 Temperature 98.5 F Pulse Rate 78 80 Respiratory Rate 20 16 Blood Pressure 114/56 L 114/56 L Pulse Oximetry 100 Oxygen Delivery Method 04/25/24 12:15 04/25/24 12:15 04/25/24 12:20 Temperature 98.5 F Pulse Rate 80 Respiratory Rate 15 Blood Pressure 114/56 L 115/58 L Pulse Oximetry 100 Oxygen Delivery Method Room Air 04/25/24 12:20 04/25/24 12:25 04/25/24 12:25 Temperature Pulse Rate 80 80 Respiratory Rate 16 19 Blood Pressure 109/57 L Pulse Oximetry 100 100 Oxygen Delivery Method 04/25/24 12:30 04/25/24 12:30 04/25/24 12:30 Temperature 98.5 F 98.5 F Pulse Rate 83 81 Respiratory Rate 16 16 Blood Pressure 106/56 L 106/56 L Pulse Oximetry 100 Oxygen Delivery Method Room Air 04/25/24 12:35 04/25/24 12:35 04/25/24 12:40 Temperature Pulse Rate 78 Respiratory Rate 15 Blood Pressure 116/59 L 128/64 Pulse Oximetry 100 Oxygen Delivery Method 04/25/24 12:40 04/25/24 12:48 04/25/24 12:48 Temperature Pulse Rate 79 88 Respiratory Rate 20 24 Blood Pressure 111/56 L Pulse Oximetry 99 Oxygen Delivery Method 04/25/24 12:50 04/25/24 12:50 04/25/24 12:55 Temperature Pulse Rate 90 Respiratory Rate 14 Blood Pressure 109/54 L 110/58 L Pulse Oximetry Oxygen Delivery Method 04/25/24 12:55 04/25/24 13:00 04/25/24 13:00 Temperature Pulse Rate 74 72 Respiratory Rate 14 15 Blood Pressure 112/62 Pulse Oximetry 100 100 Oxygen Delivery Method 04/25/24 13:05 04/25/24 13:05 04/25/24 13:10 Temperature Pulse Rate 80 Respiratory Rate 24 Blood Pressure 118/60 107/57 L Pulse Oximetry 100 Oxygen Delivery Method 04/25/24 13:10 04/25/24 13:15 04/25/24 13:15 Temperature Pulse Rate 76 75 Respiratory Rate 20 15 Blood Pressure 114/55 L Pulse Oximetry 100 100 Oxygen Delivery Method 04/25/24 13:20 04/25/24 13:20 04/25/24 13:22 Temperature 98.4 F Pulse Rate 72 77 Respiratory Rate 15 16 Blood Pressure 115/57 L 123/63 Pulse Oximetry 100 Oxygen Delivery Method 04/25/24 13:22 04/25/24 13:25 04/25/24 13:25 Temperature 98.4 F Pulse Rate 76 Respiratory Rate 19 Blood Pressure 123/63 Pulse Oximetry 100 Oxygen Delivery Method 04/25/24 13:30 04/25/24 14:00 04/25/24 14:30 Temperature Pulse Rate 77 71 74 Respiratory Rate 15 15 16 Blood Pressure Pulse Oximetry 100 100 100 Oxygen Delivery Method 04/25/24 14:42 04/25/24 14:42 04/25/24 15:00 Temperature Pulse Rate 83 Respiratory Rate 19 Blood Pressure 120/69 132/63 Pulse Oximetry 100 Oxygen Delivery Method 04/25/24 15:00 Temperature Pulse Rate 75 Respiratory Rate 12 Blood Pressure Pulse Oximetry 100 Oxygen Delivery Method Oxygen Delivery Method Room Air Narrative Exam Narrative: General:? Patient is well developed and well nourished, in no distress at this time. HEENT:? Normocephalic, atraumatic, extraocular muscles intact, oral pharynx is clear and mucous membranes are moist. Neck: supple and symmetric, trachea is midline, no cervical adenopathy. Negative for JVD Chest:? Normal AP diameter and contour without kyphoscoliosis, no tachypnea, equal chest rise bilaterally. Lungs:? CTA b/l no wheezing rhonchi or rales. Cardio:?RRR no m/r/g. Abdomen: S NT ND. No CVA tenderness. Musculoskeletal:? Muscle strength and tone are equal within normal limits, no deformity. Extremities: No edema or joint effusions. No cyanosis or clubbing. Skin:? Pale,? Warm to touch,dry and intact without rashes, ulcerations or petechiae.? Neuro:? Alert and orientated x3,? sensation to touch intact in all extremities, no gross deficits noted of cranial nerves. Psych:? Patient has a well-kept appearance, appropriate affect, mental status attitude thought context and judgment are appropriate for age. Objective Labs 04/25/24 14:14 04/25/24 13:30 Labs: Laboratory Results - last 24 hr 04/25/24 04/25/24 04/25/24 10:50 12:50 13:30 WBC 9.0 RBC 3.77 L Hgb 7.9 L Hct 26.4 L MCV 69.9 L MCH 20.8 L MCHC 29.8 L RDW 18.3 H Plt Count 525 H Neut % (Auto) 84.6 H Lymph % (Auto) 9.9 L [place] % (Auto) 5.1 Eos % (Auto) 0.1 L Baso % (Auto) 0.3 Neut # (Auto) 7600 H Lymph # (Auto) 900 L [place] # (Auto) 500 Eos # (Auto) 0 Baso # (Auto) 0 RBC Morphology See below Hypochromasia 2+ H Anisocytosis 1+ H Microcytosis 2+ H Ovalocytes 1+ H PT 12.5 INR 1.1 APTT 29 Sodium 137 136 L Potassium 3.2 L 3.3 L Chloride 104 102 Carbon Dioxide 17 L 16 L BUN 30 H 31 H Creatinine 1.83 H 1.83 H Estimated GFR 39 L 39 L BUN/Creatinine Ratio 16.4 16.9 Glucose 248 H 243 H Calcium 9.0 9.2 Total Bilirubin 0.4 AST 33 ALT 31 Alkaline Phosphatase 121 Total Protein 7.1 Albumin 4.0 Globulin 3.1 Albumin/Globulin Ratio 1.3 Stool Occult Blood Negative Stl C. cayetanensis PCR Not detected Stool Rotavirus (PCR) Not detected Stool Adenovirus (PCR) Not detected Stool Astrovirus (PCR) Not detected Stool Cryptosporidium PCR Not detected Stl E.coli Shiga Tox PCR Not detected St Sh/Enteroin Ecoli PCR Not detected Stl Enterotoxigenic E PCR Not detected Stool EPEC (PCR) Not detected Stl E. histolytica PCR Not detected Stool Giardia Lamblia PCR Not detected Stool Sapovirus (PCR) Not detected Stl P. shigelloides PCR Not detected St Y.enterocolitica PCR Not detected Stool Vibrio (PCR) Not detected Stl Vibrio cholerae PCR Not detected Stl Enteroaggr Ecoli PCR Not detected Stl Norovirus GI/GII PCR Not detected Ketones 0.12 Campylobacter (PCR) Not detected C. difficile Tox (PCR) Not detected Salmonella (PCR) Not detected Blood Type O Positive Antibody Screen Negative Crossmatch See Detail 04/25/24 14:14 WBC RBC Hgb 8.2 L Hct 26.6 L MCV MCH MCHC RDW Plt Count Neut % (Auto) Lymph % (Auto) [place] % (Auto) Eos % (Auto) Baso % (Auto) Neut # (Auto) Lymph # (Auto) [place] # (Auto) Eos # (Auto) Baso # (Auto) RBC Morphology Hypochromasia Anisocytosis Microcytosis Ovalocytes PT INR APTT Sodium Potassium Chloride Carbon Dioxide BUN Creatinine Estimated GFR BUN/Creatinine Ratio Glucose Calcium Total Bilirubin AST ALT Alkaline Phosphatase Total Protein Albumin Globulin Albumin/Globulin Ratio Stool Occult Blood Stl C. cayetanensis PCR Stool Rotavirus (PCR) Stool Adenovirus (PCR) Stool Astrovirus (PCR) Stool Cryptosporidium PCR Stl E.coli Shiga Tox PCR St Sh/Enteroin Ecoli PCR Stl Enterotoxigenic E PCR Stool EPEC (PCR) Stl E. histolytica PCR Stool Giardia Lamblia PCR Stool Sapovirus (PCR) Stl P. shigelloides PCR St Y.enterocolitica PCR Stool Vibrio (PCR) Stl Vibrio cholerae PCR Stl Enteroaggr Ecoli PCR Stl Norovirus GI/GII PCR Ketones Campylobacter (PCR) C. difficile Tox (PCR) Salmonella (PCR) Blood Type Antibody Screen Crossmatch Assessment & Plan Assessment & Plan narrative: 1. Hypotension, LAURIE due to hypovolemia or iatrogenic - Has a history of previous admissions for hypotension, orthostatic hypotension, GI bleeding. Suspicion at this time for now resolved GI bleeding. However with no improvement in renal function will keep for observation. - patient reports continued compliance with PPI as an outpatient - H/h has improved since his most recent admission. Was given 1U PRBC with improvement. - continue to follow, if h/h drop consider surgery consultation for EGD vs c- scope. - continue IV PPI BID for now - okay for diet. continue IV fluids for LAURIE - UA negative, CXR negative, doubt sepsis. However if fever get blood cultures and start empiric antibiotics. 2. possible acute on Chronic microcytic anemia, possibly newly symptomatic - f/u response to transfusion - hold home asa - SCDs. - patient reports he did not have labs drawn as an outpatient, unclear baseline Hg. # DM2 -hold metformin for now with mild acidosis on labs, FS ACHS # HTN -hold home BP meds for now. # depression -continue prozac and olanzapine Code status is full code. DVT prophylaxis with enoxaparin given stable anemia. Proxy is spouse Cecy. I have reviewed home meds and used all available resources to reconcile the home meds. Case discussed with ED physician where additional history was gathered, patient will be admitted to the hospitalist service for further workup and management. This patient will be admitted as observation. Possible discharge home tomorrow. Time-Based Coding :: [TOTAL MINUTES] spent with patient and on the chart (including review of chart, obtaining history, exam, reviewing outside data, placing orders, documenting exam and treatment plan, and counseling patient) on [DATE].
[2024-04-25] MEDS: SODIUM CHLORIDE 0.9% 1,000 ML 100 ML IV (17:03)
[2024-04-25] MEDS: PANTOPRAZOLE 40 MG VIAL IV (21:23)
[2024-04-25] MEDS: OLANZapine 2.5 MG TABLET 20 MG PO (21:23)
[2024-04-25] MEDS: INSULIN LISPRO 100 UNIT/ML 3ML VIAL SUBCUT (21:29)
[2024-04-26] VITALS (12 sets, daily range): BP systolic 114–197; BP diastolic 57–96; PULSE 61–100; RESP 12–18; TEMP 35.9–36.2; O2SAT 98–100
[2024-04-26] MEDS: SODIUM CHLORIDE 0.9% 1,000 ML 100 ML IV ×3 (03:42→23:33)
[2024-04-26 05:37] LABS: Add Manual Diff / Slide Review NO; Basophils Absolute Auto 100 /uL (0-100); Basophils Percent Auto 1.2 % (0-2); Eosinophils Absolute Auto 100 /uL (0-450); Eosinophils Percent Auto 2.5 % (2-4); Hematocrit 26.7 % (41-53); Hemoglobin 8.3 g/dL (13.5-17.5); Lymphocytes Absolute Auto 2000 /uL (1100-4500); Lymphocytes Percent Auto 41.5 % (25-40); Mean Corpuscular HGB Conc 31.1 % (30-36); Mean Corpuscular Hemoglobin 21.9 PG (26-34); Mean Corpuscular Volume 70.3 fL (80-100); Monocytes Absolute Auto 500 /uL (0-900); Monocytes Percent Auto 9.6 % (3-14); Neutrophils Absolute Auto 2200 /uL (1500-7000); Neutrophils Percent Auto 45.2 % (50-75); Platelet Count 373 X10^3/uL (150-400); Red Blood Cell Count 3.79 X10^6/uL (4.5-5.9); White Blood Cell Count 4.9 X10^3/uL (4.5-11.0)
[2024-04-26 05:54] LABS: BUN Creatinine Ratio 20.6 (6-22); Blood Urea Nitrogen 22 mg/dL (9-20); Calcium 8.8 mg/dL (8.4-10.2); Carbon Dioxide 25 mmol/L (22-32); Chloride 108 mmol/L (98-107); Estimated Glomerular Filt Rate > 60 mL/min (>60); Glucose 95 mg/dL (80-110); HEMOLYSIS < 15 (0-50); Magnesium 1.6 mg/dL (1.6-2.3); Potassium 3.5 mmol/L (3.4-5.1); Sodium 139 mmol/L (137-145)
[2024-04-26 06:01] LABS: Hemoglobin A1C% w Est Avg Glu 6.1 % (4.0-6.0)
[2024-04-26] MEDS: MAGNESIUM CHLORIDE 64 MG TABLET 128 MG PO (08:41)
[2024-04-26] MEDS: POTASSIUM CHLORIDE 20 MEQ TAB 40 MEQ PO (08:45)
[2024-04-26] MEDS: MULTIVITAMIN 1 TABLET 1 TAB PO (08:47)
[2024-04-26] MEDS: SERTRALINE 50 MG TABLET 100 MG PO (08:47)
[2024-04-26] MEDS: PANTOPRAZOLE 40 MG VIAL IV ×2 (08:48→20:00)
--- NOTE | 2024-04-26 14:26 | PM.PN.1 ---
Subjective Subjective Interval history: 68 M admitted with LAURIE and low BP. He is severely orthostatic this morning with SBP drop of >60 points. He was dizzy with standing. Will continue IV fluids today. Hg is stable this morning. Exam Vital Signs (past 8 hours): - 04/26/24 08:00 04/26/24 08:00 04/26/24 09:00 Temperature 97.0 F L Pulse Rate 85 Pulse Rate [Orthostatic Lying] 83 Pulse Rate [Orthostatic Sitting] 90 Pulse Rate [Orthostatic Standing] 100 H Respiratory Rate 12 Blood Pressure 181/89 H Blood Pressure [Orthostatic Lying] 170/90 H Blood Pressure [Orthostatic Sitting] 137/80 Blood Pressure [Orthostatic Standing] 114/65 Pulse Oximetry 100 100 Oxygen Delivery Method Room Air Oxygen Flow Rate 0 0 04/26/24 12:00 04/26/24 13:00 Temperature 96.7 F L Pulse Rate 73 Pulse Rate [Orthostatic Lying] Pulse Rate [Orthostatic Sitting] Pulse Rate [Orthostatic Standing] Respiratory Rate 15 Blood Pressure 134/79 Blood Pressure [Orthostatic Lying] Blood Pressure [Orthostatic Sitting] Blood Pressure [Orthostatic Standing] Pulse Oximetry 99 98 Oxygen Delivery Method Room Air Oxygen Flow Rate 0 0 Oxygen Delivery Method Room Air Oxygen Flow Rate 0 Narrative Exam Narrative: General:? Patient is well developed and well nourished, in no distress at this time. HEENT:? Normocephalic, atraumatic, extraocular muscles intact, oral pharynx is clear and mucous membranes are moist. Neck: supple and symmetric, trachea is midline, no cervical adenopathy. Negative for JVD Chest:? Normal AP diameter and contour without kyphoscoliosis, no tachypnea, equal chest rise bilaterally. Lungs:? CTA b/l no wheezing rhonchi or rales. Cardio:?RRR no m/r/g. Abdomen: S NT ND. No CVA tenderness. Musculoskeletal:? Muscle strength and tone are equal within normal limits, no deformity. Extremities: No edema or joint effusions. No cyanosis or clubbing. Skin:? Pale,? Warm to touch,dry and intact without rashes, ulcerations or petechiae.? Neuro:? Alert and orientated x3,? sensation to touch intact in all extremities, no gross deficits noted of cranial nerves. Psych:? Patient has a well-kept appearance, appropriate affect, mental status attitude thought context and judgment are appropriate for age. Objective Labs 04/26/24 05:05 04/26/24 05:05 Labs: Laboratory Results - last 24 hr 04/25/24 04/26/24 13:30 05:05 WBC 4.9 RBC 3.79 L Hgb 8.3 L Hct 26.7 L MCV 70.3 L MCH 21.9 L MCHC 31.1 RDW 19.0 H Plt Count 373 Neut % (Auto) 45.2 L D Lymph % (Auto) 41.5 H D [place] % (Auto) 9.6 Eos % (Auto) 2.5 Baso % (Auto) 1.2 Neut # (Auto) 2200 Lymph # (Auto) 2000 [place] # (Auto) 500 Eos # (Auto) 100 Baso # (Auto) 100 Sodium 136 L 139 Potassium 3.3 L 3.5 Chloride 102 108 H Carbon Dioxide 16 L 25 BUN 31 H 22 H Creatinine 1.83 H 1.07 Estimated GFR 39 L > 60 BUN/Creatinine Ratio 16.9 20.6 Glucose 243 H 95 D Hemoglobin A1c 6.1 H Calcium 9.2 8.8 Magnesium 1.6 PFSH Medical History GERD (gastroesophageal reflux disease) HNP (herniated nucleus pulposus), lumbar History of bleeding ulcers Hypertriglyceridemia Non-insulin dependent type 2 diabetes mellitus HTN (hypertension) Nephrolithiasis Degenerative disc disease Surgical History History of vasectomy History of colonoscopy History of cholecystectomy History of gastric bypass History of cervical spinal surgery Status post lumbar surgery Family History Mother No known health problems Father No known health problems Social History household members: spouse and family Smoking Status: Former smoker alcohol intake: former Assessment & Plan Assessment & Plan narrative: 1. Orthostatic hypotension, LAURIE due to hypovolemia or iatrogenic - Has a history of previous admissions for hypotension, orthostatic hypotension, GI bleeding. Suspicion at this time for now resolved GI bleeding. Renal function now improved but severely orthostatic - patient reports continued compliance with PPI as an outpatient - H/h has improved since his most recent admission. Was given 1U PRBC with improvement and it is still stable today. - continue to follow, if h/h drop consider surgery consultation for EGD vs c-scope. - continue IV PPI BID for now - okay for diet. continue IV fluids for orthostasis today. - UA negative, CXR negative, doubt sepsis. However if fever get blood cultures and start empiric antibiotics. - consider midodrine if still dizzy and not responding to fluids. Continue orthostatic vitals qshift. 2. possible acute on Chronic microcytic anemia, possibly newly symptomatic - hold home asa - SCDs. - patient reports he did not have labs drawn as an outpatient, unclear baseline Hg. # DM2 -hold metformin for now with mild acidosis on labs, FS ACHS # HTN -hold home BP meds for now. # depression -continue prozac and olanzapine Code status is full code. DVT prophylaxis with enoxaparin given stable anemia. Proxy is spouse Cecy. I have reviewed home meds and used all available resources to reconcile the home meds. Dipso: changed to inpatient. Will need improvement in orthostatics prior to discharge. He is only mildly dizzy with ambulation, no need for PT at this time. Time-Based Coding :: [TOTAL MINUTES] spent with patient and on the chart (including review of chart, obtaining history, exam, reviewing outside data, placing orders, documenting exam and treatment plan, and counseling patient) on [DATE]. Quality VTE Deep Vein Thrombosis/Pulmonary Embolism Present on Admission: No
--- NOTE | 2024-04-26 15:21 | CM.DANOTE ---
Injitial DCP Assessment Visit Note Reviewed EMR and team rounds for status updates. Discharge Planning/Care Management CM Discharge Assessment Start: 04/26/24 15:19 Freq: Status: Active Protocol: Document 04/26/24 15:19 DPL (Rec: 04/26/24 15:21 DPL [id number]) Discharge Planning Assessment Assigned [employer] Web Developer ADAM Washburn Advance Directives? No Advance Directives on File No History Provided By Patient,Medical Record Has Patient been admitted in last 30 No days? Prior Living Arrangements House Household Members spouse,family Type of transporation used prior to Drives own vehicle admit Independent with ADL's Yes Is patient alert and oriented? Yes Caregiver for Another No Comment N/A Patient/Family Preference Home with Home Health Barriers to Discharge No Discharge Plan Home Transportation Arrangement Spouse POV Referrals Initiated None needed Additional Comment Waiting for final PT recommendations. Whiteboard Updated in Patient Room with Yes name and ext. # of [employer] Web Developer Review Status In Process Please Provide Date Initial DC 04/26/24 Assessment Was Performed
[2024-04-26] MEDS: OLANZapine 2.5 MG TABLET 20 MG PO (20:01)
[2024-04-27] VITALS (12 sets, daily range): BP systolic 137–179; BP diastolic 67–97; PULSE 65–93; RESP 14–21; TEMP 36.2–36.7; O2SAT 98–100
--- NOTE | 2024-04-27 06:31 | PC.NURSE ---
0545: Orthostatic BPs were as follows: Supine: 197/96 map 116 Sittin/84 map 118 Stand: 162/85 map 96 Pt denies dizziness or headache. Informed MD Corey [id number]; followed up at 0633. Awaiting reply. Will relay to dayshift. Pt resting comfortably, call light within reach, bed low/locked, plan of care continues.
[2024-04-27 07:18] LABS: Add Manual Diff / Slide Review NO; Basophils Absolute Auto 0 /uL (0-100); Basophils Percent Auto 0.7 % (0-2); Eosinophils Absolute Auto 200 /uL (0-450); Eosinophils Percent Auto 2.5 % (2-4); Hematocrit 28.9 % (41-53); Hemoglobin 8.7 g/dL (13.5-17.5); Lymphocytes Absolute Auto 1900 /uL (1100-4500); Lymphocytes Percent Auto 25.6 % (25-40); Mean Corpuscular HGB Conc 30.3 % (30-36); Mean Corpuscular Hemoglobin 21.9 PG (26-34); Mean Corpuscular Volume 72.3 fL (80-100); Monocytes Absolute Auto 600 /uL (0-900); Monocytes Percent Auto 7.7 % (3-14); Neutrophils Absolute Auto 4800 /uL (1500-7000); Neutrophils Percent Auto 63.5 % (50-75); Platelet Count 389 X10^3/uL (150-400); Red Blood Cell Count 3.99 X10^6/uL (4.5-5.9); Red Cell Distribution Width 19.8 % (11.6-14.8); White Blood Cell Count 7.5 X10^3/uL (4.5-11.0)
[2024-04-27 07:33] LABS: BUN Creatinine Ratio 14.4 (6-22); Blood Urea Nitrogen 14 mg/dL (9-20); Calcium 8.8 mg/dL (8.4-10.2); Carbon Dioxide 23 mmol/L (22-32); Chloride 111 mmol/L (98-107); Estimated Glomerular Filt Rate > 60 mL/min (>60); Glucose 96 mg/dL (80-110); HEMOLYSIS < 15 (0-50); Magnesium 1.3 mg/dL (1.6-2.3); Potassium 4.2 mmol/L (3.4-5.1); Sodium 141 mmol/L (137-145)
[2024-04-27] MEDS: PANTOPRAZOLE 40 MG VIAL IV ×2 (08:44→21:17)
[2024-04-27] MEDS: SERTRALINE 50 MG TABLET 100 MG PO (08:45)
[2024-04-27] MEDS: MULTIVITAMIN 1 TABLET 1 TAB PO (08:45)
[2024-04-27] MEDS: FERROUS SULFATE 325 MG TABLET PO (08:46)
[2024-04-27] MEDS: SODIUM CHLORIDE 0.9% 1,000 ML 100 ML IV ×2 (09:13→21:18)
[2024-04-27] MEDS: MAGNESIUM CHLORIDE 64 MG TABLET 128 MG PO ×2 (10:16→17:45)
--- NOTE | 2024-04-27 11:08 | CM.DANOTE ---
Initial DCP Assessment Visit Note Reviewed EMR and team rounds for status updates. Went to meet with pt at bedside to introduce self and role, however he was found to be sleeping. Pt lives independently in his own home with spouse in [place]. His spouse will plan on on transporting him home once he's medically stable, likely later today. No CM d/c needs are identified at this time. Payor: [employer] PCP: Shniumair José Pt is a 69 year-old M with a hx of chronic anemia, last transfusion was 1-year ago, the cause of his current anemia is not known. He presented to the ED with c/o 1-week of dark stools, no BM the day before, and weakness. He was also found to be very hypokalemic. He's also been very orthostatic, per Hospitalist report. He's been receiving IV fluids and PPI, and has needed a few transfusions since time of admit. Pt is reportedly improving towards baseline. DCP will continue to monitor and assist with any further evolving d/c needs, however none are anticipated at this time. Discharge Planning/Care Management Advanced directive, confirm from FAMILY Start: 04/25/24 16:54 Freq: Q24H Status: Active Protocol: Document 04/26/24 16:54 CM (Rec: 04/26/24 17:23 CM [id number]) Advance Directive, confirm on record Time 17:23 Person contacted Pt Copy received No Advanced directive available on record No CM Discharge Assessment Start: 04/26/24 15:19 Freq: Status: Active Protocol: Document 04/26/24 15:19 DPL (Rec: 04/26/24 15:21 DPL [id number]) Discharge Planning Assessment Assigned Data Analysis Assistant ADAM Washburn Advance Directives? No Advance Directives on File No History Provided By Patient,Medical Record Has Patient been admitted in last 30 No days? Prior Living Arrangements House Household Members spouse,family Type of transporation used prior to Drives own vehicle admit Independent with ADL's Yes Is patient alert and oriented? Yes Caregiver for Another No Comment N/A Patient/Family Preference Home with Home Health Barriers to Discharge No Discharge Plan Home Transportation Arrangement Spouse POV Referrals Initiated None needed Additional Comment Waiting for final PT recommendations. Whiteboard Updated in Patient Room with Yes name and ext. # of Data Analysis Assistant Review Status In Process Please Provide Date Initial DC 04/26/24 Assessment Was Performed
[2024-04-27] MEDS: SODIUM CHLORIDE 0.9% 1,000 ML 1000 ML IV (12:14)
[2024-04-27] MEDS: LOPERAMIDE 2 MG CAPSULE PO (16:04)
--- NOTE | 2024-04-27 16:09 | P.PN_ITS ---
Subjective Subjective Interval history: He was still orthostatic but improved over yesterday. He did feel somewhat dizzy. His line blood pressures remain elevated with systolics in the 160 range. Exam Vital Signs (past 8 hours): - 04/27/24 09:00 04/27/24 12:00 04/27/24 13:00 Temperature 97.7 F Pulse Rate 93 H Respiratory Rate 16 Blood Pressure 173/86 H Blood Pressure [Orthostatic Lying] Blood Pressure [Orthostatic Sitting] Blood Pressure [Orthostatic Standing] Pulse Oximetry 98 98 98 Oxygen Delivery Method Room Air Oxygen Flow Rate 0 04/27/24 15:00 Temperature Pulse Rate Respiratory Rate Blood Pressure Blood Pressure [Orthostatic Lying] 163/77 H Blood Pressure [Orthostatic Sitting] 165/86 H Blood Pressure [Orthostatic Standing] 142/79 H Pulse Oximetry Oxygen Delivery Method Oxygen Flow Rate Oxygen Delivery Method Room Air Oxygen Flow Rate 0 Narrative Exam Narrative: NAD, alert and oriented. Fluent speech. Lungs are clear, normal rate and effort. Heart is regular, no murmur gallop or rub. Abdomen is soft, non distended. Extremities are free of edema. Objective Labs 04/27/24 06:01 04/27/24 06:01 Labs: Laboratory Results - last 24 hr 04/27/24 06:01 WBC 7.5 D RBC 3.99 L Hgb 8.7 L Hct 28.9 L MCV 72.3 L MCH 21.9 L MCHC 30.3 RDW 19.8 H Plt Count 389 Neut % (Auto) 63.5 Lymph % (Auto) 25.6 [place] % (Auto) 7.7 Eos % (Auto) 2.5 Baso % (Auto) 0.7 Neut # (Auto) 4800 Lymph # (Auto) 1900 [place] # (Auto) 600 Eos # (Auto) 200 Baso # (Auto) 0 Sodium 141 Potassium 4.2 Chloride 111 H Carbon Dioxide 23 BUN 14 Creatinine 0.97 Estimated GFR > 60 BUN/Creatinine Ratio 14.4 Glucose 96 Calcium 8.8 Magnesium 1.3 L PFSH Medical History GERD (gastroesophageal reflux disease) HNP (herniated nucleus pulposus), lumbar History of bleeding ulcers Hypertriglyceridemia Non-insulin dependent type 2 diabetes mellitus HTN (hypertension) Nephrolithiasis Degenerative disc disease Surgical History History of vasectomy History of colonoscopy History of cholecystectomy History of gastric bypass History of cervical spinal surgery Status post lumbar surgery Family History Mother No known health problems Father No known health problems Social History household members: spouse and family Smoking Status: Former smoker alcohol intake: former Assessment & Plan Assessment & Plan narrative: 1. Orthostatic hypotension, severe at admission and somewhat improved but still active. - Has a history of previous admissions for hypotension, orthostatic hypotension, GI bleeding. Suspicion at this time for now resolved GI bleeding. Renal function now improved but severely orthostatic - he was to be on blood pressure pills which were stopped because of low blood pressure. His resting blood pressures lying flat still are high. He was improved with some IV fluid and does have chronic diarrhea. 2. possible acute on Chronic microcytic anemia, possibly newly symptomatic - hold home asa - SCDs. - no evidence of blood loss activity or rectal bleeding. Hemoglobin remained stable. # DM2, stable. -hold metformin for now with mild acidosis on labs, FS ACHS # HTN, high when lying flat, orthostatic when up. -hold home BP meds for now. # depression, stable. -continue prozac and olanzapine Plan: -continue IV fluids and see if orthostasis continues to improve. -monitor lying flat systolic pressures. He may require initiation of a low-dose blood pressure medication and midodrine. -he requires another night of monitoring for severe orthostatic hypotension and uncontrolled hypertension. CARLOS: 04/27. Code status is full code. DVT prophylaxis with enoxaparin given stable anemia. Proxy is spouse Cecy. Time-Based Coding :: [TOTAL MINUTES] spent with patient and on the chart (including review of chart, obtaining history, exam, reviewing outside data, placing orders, documenting exam and treatment plan, and counseling patient) on [DATE]. Quality VTE Deep Vein Thrombosis/Pulmonary Embolism Present on Admission: No
[2024-04-27] MEDS: OLANZapine 2.5 MG TABLET 20 MG PO (21:17)
[2024-04-28] VITALS (7 sets, daily range): BP systolic 108–196; BP diastolic 66–96; PULSE 71–110; RESP 14–18; TEMP 36.1–36.5; O2SAT 96–98
[2024-04-28 05:12] LABS: Add Manual Diff / Slide Review NO; Basophils Absolute Auto 0 /uL (0-100); Basophils Percent Auto 0.5 % (0-2); Eosinophils Absolute Auto 200 /uL (0-450); Eosinophils Percent Auto 2.9 % (2-4); Hemoglobin 8.2 g/dL (13.5-17.5); Lymphocytes Absolute Auto 1800 /uL (1100-4500); Mean Corpuscular HGB Conc 30.3 % (30-36); Mean Corpuscular Hemoglobin 21.6 PG (26-34); Mean Corpuscular Volume 71.1 fL (80-100); Monocytes Absolute Auto 400 /uL (0-900); Monocytes Percent Auto 6.5 % (3-14); Neutrophils Absolute Auto 4400 /uL (1500-7000); Neutrophils Percent Auto 64.1 % (50-75); Platelet Count 378 X10^3/uL (150-400); Red Cell Distribution Width 19.9 % (11.6-14.8); White Blood Cell Count 6.9 X10^3/uL (4.5-11.0)
[2024-04-28 05:28] LABS: BUN Creatinine Ratio 14.3 (6-22); Blood Urea Nitrogen 12 mg/dL (9-20); Calcium 8.6 mg/dL (8.4-10.2); Carbon Dioxide 23 mmol/L (22-32); Chloride 112 mmol/L (98-107); Estimated Glomerular Filt Rate > 60 mL/min (>60); Glucose 100 mg/dL (80-110); HEMOLYSIS < 15 (0-50); Magnesium 1.2 mg/dL (1.6-2.3); Potassium 3.9 mmol/L (3.4-5.1); Sodium 140 mmol/L (137-145)
[2024-04-28] MEDS: AMLODIPINE 5 MG TABLET PO (08:56)
[2024-04-28] MEDS: SERTRALINE 50 MG TABLET 100 MG PO (08:56)
[2024-04-28] MEDS: FERROUS SULFATE 325 MG TABLET PO (08:56)
[2024-04-28] MEDS: PANTOPRAZOLE 40 MG VIAL IV (08:56)
[2024-04-28] MEDS: MULTIVITAMIN 1 TABLET 1 TAB PO (08:56)
[2024-04-28] MEDS: MAGNESIUM CHLORIDE 64 MG TABLET 128 MG PO (11:09)
[2024-04-28] MEDS: LOPERAMIDE 2 MG CAPSULE PO (12:28)
--- NOTE | 2024-04-28 12:30 | P.DS_ITS ---
History of Present Illness History of Present Illness Chief complaint: balance issues, dizzy spells, neck/back pain Narrative: From H&P: Kristian Yin is a 68yo M with PMH of GERD with gastric ulcer, prior gastric bypass, non-obstructive CAD, HTN, HLD, DM2, depression, chronic anemia, and kidney stones who presented with dizziness and reports of melena that stopped 2 days ago. Patient reports the last two days he has felt dizziness, primarily with ambulation. He denies any chest pain or pressure. He denies any abdominal pain, nausea, vomiting, diarrhea. He does endorse dark stools that started about a week ago but subsequently resolved 2 days ago. In the emergency room he had a negative guaiac evaluation and he was able to ambulate at bedside with nursing staff. Laboratory evaluation did show creatinine of 1.8 up from his usual baseline. Repeat showed the exact same creatinine at 1.83. He was admitted for observation. Urine dipstick was negative per ER nurse at bedside. Discharge Providers Provider Date of admission: 04/25/24 15:10 Discharge Date: 04/28/24 Primary care physician: Shin José PA-C Consults: None. Discharge provider: Edgar Blanco MD Summary Hospital Course Discharge Diagnosis: 1. Orthostatic hypotension, severe at admission and improved. - Has a history of previous admissions for hypotension, orthostatic hypotension, GI bleeding. Suspicion at this time for now resolved GI bleeding. Renal function now improved but severely orthostatic - he was to be on blood pressure pills which were stopped because of low blood pressure. His resting blood pressures lying flat still are high. He was improved with some IV fluid and does have chronic diarrhea. 2. Acute on chronic microcytic anemia, stable. 3. DM2, stable. -hold metformin for now with mild acidosis on labs, FS ACHS 4. HTN, active. -hold home BP meds for now. 5. Depression, stable. -continue prozac and olanzapine Hospital Course: The patient was initially seen for dizziness and dark stools. He was initially concern about the possibility of GI bleeding. He was found to be volume depleted with a creatinine of 1.8. The patient had no clinical evidence of rectal bleeding while in the hospital. His hemoglobin remained low, but stable. He was however found to be hypertensive while lying flat and orthostatic and dizzy while sitting up. This apparently, is a somewhat chronic issue and led to discontinuance of multiple other blood pressure meds recently. He was fluid resuscitated, with some improvement of orthostasis. He was chronic diuretic-ARB was stopped. On the day of discharge he would persistent systolic blood pressures in the 160 range and we started on amlodipine at 5 mg. He tolerated this with a good improvement to the systolic range of 130 and minimal orthostasis. Dietrich that he was relatively stable for discharge. There was no clear evidence of rectal bleeding or blood loss anemia and he will be discharged on his new blood pressure medication. Status at Discharge Cognitive/behavioral status at discharge: oriented Functional status at discharge: independent ambulation Overall status at discharge: patient is back to baseline Time Spent with Patient Time spent: Greater than 30 minutes Exam Vital Signs (past 8 hours): - 04/28/24 07:00 04/28/24 08:00 04/28/24 09:00 Temperature 97.4 F L Pulse Rate 92 H 87 Pulse Rate [Orthostatic Lying] 90 Pulse Rate [Orthostatic Sitting] 102 H Pulse Rate [Orthostatic Standing] 110 H Respiratory Rate 18 Blood Pressure 174/94 H 177/82 H Blood Pressure [Orthostatic Lying] 149/73 H Blood Pressure [Orthostatic Sitting] 120/73 Blood Pressure [Orthostatic Standing] 108/66 Pulse Oximetry 96 98 Oxygen Flow Rate 0 0 04/28/24 12:00 04/28/24 12:26 Temperature 97 F L Pulse Rate 71 Pulse Rate [Orthostatic Lying] Pulse Rate [Orthostatic Sitting] 78 Pulse Rate [Orthostatic Standing] 94 H Respiratory Rate 16 Blood Pressure 143/71 H Blood Pressure [Orthostatic Lying] Blood Pressure [Orthostatic Sitting] 169/91 H Blood Pressure [Orthostatic Standing] 151/84 H Pulse Oximetry 97 Oxygen Flow Rate 0 Oxygen Delivery Method Room Air Oxygen Flow Rate 0 Narrative Exam Narrative: NAD, alert and oriented. Fluent speech. Lungs are clear, normal rate and effort. Heart is regular, no murmur gallop or rub. Abdomen is soft, non distended. Extremities are free of edema. Objective ECG Impression: Sinus rhythm with premature supraventricular complexes Incomplete right bundle branch block Left anterior fascicular block Minimal voltage criteria for LVH, may be normal variant ( R in aVL ) Imaging Multiple studies:: Radiologist's impression: Chest abdomen pelvis CTA: Prominent umbilical hernia without obstruction. Nonobstructing right renal calculus, unchanged. No bowel inflammation identified. Labs 04/28/24 05:02 04/28/24 05:02 Labs: Laboratory Results - last 24 hr 04/28/24 05:02 WBC 6.9 RBC 3.80 L Hgb 8.2 L Hct 27.0 L MCV 71.1 L MCH 21.6 L MCHC 30.3 RDW 19.9 H Plt Count 378 Neut % (Auto) 64.1 Lymph % (Auto) 26.0 [place] % (Auto) 6.5 Eos % (Auto) 2.9 Baso % (Auto) 0.5 Neut # (Auto) 4400 Lymph # (Auto) 1800 [place] # (Auto) 400 Eos # (Auto) 200 Baso # (Auto) 0 Sodium 140 Potassium 3.9 Chloride 112 H Carbon Dioxide 23 BUN 12 Creatinine 0.84 Estimated GFR > 60 BUN/Creatinine Ratio 14.3 Glucose 100 Calcium 8.6 Magnesium 1.2 L PFSH Medical History GERD (gastroesophageal reflux disease) HNP (herniated nucleus pulposus), lumbar History of bleeding ulcers Hypertriglyceridemia Non-insulin dependent type 2 diabetes mellitus HTN (hypertension) Nephrolithiasis Degenerative disc disease Surgical History History of vasectomy History of colonoscopy History of cholecystectomy History of gastric bypass History of cervical spinal surgery Status post lumbar surgery Family History Mother No known health problems Father No known health problems Social History household members: spouse and family Smoking Status: Former smoker alcohol intake: former Discharge Plan Discharge Plan Patient Disposition: Home Provider Discharge Comment: Stable for discharge home. Discharge orders & Medications Prescriptions: New amlodipine 5 mg Tablet 5 mg PO DAILY Qty: 30 1RF ferrous sulfate 325 mg (65 mg iron) Tablet 325 mg PO DAILY Qty: 30 1RF Slow-Mag 71.5 mg Tablet,Delayed Release (Dr/Ec) 128 mg PO 1XD Qty: 30 0RF Continued acetaminophen 325 mg Tablet 650 mg PO Q6H PRN (Reason: Fever/Mild Pain (1-3)) Qty: 50 0RF nitroglycerin [Nitrostat] 0.4 mg Tablet, Sublingual 0.4 mg sublingual [id number] PRN (Reason: Chest Pain) Qty: 30 0RF metformin 1,000 mg tablet 500 mg PO BID aspirin [Adult Low Dose Aspirin] 81 mg Tablet,Delayed Release (Dr/Ec) 81 mg PO DAILY diclofenac sodium 1 % Gel 2.25 inch topical BID Qty: 60 0RF multivitamin Tablet 1 tab PO DAILY olanzapine 20 mg tablet 20 mg PO BEDTIME Patient Comments: take 1 tablet by mouth at bedtime sertraline 100 mg tablet 100 mg PO DAILY Discontinued telmisartan-hydrochlorothiazid [Micardis HCT] 40-12.5 mg Tablet 1 tab PO DAILY Medication counseling provided by Pharmacist: No Follow up/Referrals: Shin José PA-C [Primary Care Provider] - Discharge Health Status Multidrug resistant organism: No MDRO Diet/Activity/Treatments Diet: Regular Activity: As tolerated. Visit Report/Discharge Packet Instructions: Magnesium, DI for Orthostatic Hypotension, Amlodipine, Iron Supplements (By mouth) Stand Alone Forms: Patient Portal/API, Stroke Signs & Symptoms Discharge Data Primary Care Provider: Shin José Quality VTE Deep Vein Thrombosis/Pulmonary Embolism Present on Admission: No MIPS - DC The patient has a history of heart transplant or Left Ventricular Assist Device (LVAD). If yes, STOP here.: No The patient has current or prior documentation of left ventricular ejection fraction (LVEF) less than or equal to 40%, or moderate or severely depressed left ventricular systolic function.: No
--- NOTE | 2024-04-28 13:16 | PC.NURSE ---
Pt is dressed and ready for discharge home - he states he will be driving himself home and feels safe to do so. Pt is not taking narcotics. Discussed getting up slowly from bed or chair to prevent dizziness. Encouraged fluid intake to prevent constipation or dehydration and to be aware of electrolyte imbalance r/t diarrhea-which Pt states is somewhat chronic. Discussed d/c meds, time of last dose, reviewed stroke education, and follow up with his PCP. Pt denied further questions and was taken out via w/c by [employer] ADMINISTRATOR to POV with all belongings.
--- NOTE | 2024-04-28 14:04 | CM.DPC ---
DCP Discharge Home Per MD, pt had some medication changes this morning and now medically stable to d/c home today with outpt f/u and no identified barriers to discharge. Per RN, pt was given discharge instructions and steady and independent in room and no PT eval needs at this time and pt agreeable with discharge and plans to drive himself home today as vehicle in the parking lot and not taking any narcotic medications. No concerns noted. ADAM Wan
== END 2024-04-28 13:21 | disposition home or self-care (01) | DRG 312 ==
LOC: ED 10:54 → AC 15:11
PROVIDERS: Admitting Provider Internal Medicine; Emergency Provider Emergency Medicine; PCP Student in an Organized Health Care Education/Training Program; Referring Provider Emergency Medicine; Visit Provider Internal Medicine
DX: I95.1 Orthostatic hypotension (principal); N17.9 Acute kidney failure, unspecified; D50.9 Iron deficiency anemia, unspecified; E11.9 Type 2 diabetes mellitus without complications; I10 Essential (primary) hypertension; E87.6 Hypokalemia; K52.9 Noninfective gastroenteritis and colitis, unspecified; F32.A Depression, unspecified; E86.9 Volume depletion, unspecified; Z87.891 Personal history of nicotine dependence; Z87.19 Personal history of other diseases of the digestive system; Z79.84 Long term (current) use of oral hypoglycemic drugs; Z79.82 Long term (current) use of aspirin; Z88.6 Allergy status to analgesic agent
CPT/HCPCS: 36415; 36430; 71275; 74174; 80048; 80053; 81003; 82009; 82270; 82272; 82962; 83036; 83735; 85014; 85018; 85025; 85610; 85730; 86850; 86900; 86901; 87507; 93005; 93010; 96361; 96365; 96375; 99285; 99291; P9016; J1815; J2470; Q9967

== ENCOUNTER 2024-07-01 10:00 | Emergency (ER) | payer MEDICARE, OTHER, SELFPAY ==
[2024-04-25 15:23] VITALS: BMI 29.0
[2024-07-01] VITALS (8 sets, daily range): BP systolic 121–164; BP diastolic 74–86; PULSE 80–108; RESP 16–23; TEMP 37.1; O2SAT 94–99; BMI 28.2
--- NOTE | 2024-07-01 10:10 | DI.RAD.S_ITS ---
PROCEDURE: XR CHEST 1V INDICATIONS: chest pain TECHNIQUE: One view of the chest was acquired. COMPARISON: [facility], CR, XR CHEST 1V, 03/01/2024, 9:30. FINDINGS: Surgical changes and devices: Postsurgical changes are noted in lower cervical spine. Lungs and pleura: Lungs are clear. No pleural effusions or pneumothorax. Mediastinum: Mildly tortuous thoracic aorta. Heart size is normal. Bones and chest wall: No suspicious bony lesions. Overlying soft tissues appear unremarkable. IMPRESSION: No acute cardiopulmonary pathology. Dictated by: Brayan Diaz M.D. on 07/01/2024 at 10:34 Approved by: Brayan Diaz M.D. on 07/01/2024 at 10:35
--- NOTE | 2024-07-01 10:15 | EKG_ITS ---
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
[2024-07-01] MEDS: ASPIRIN 81 MG CHEW TAB 324 MG PO (10:23)
--- NOTE | 2024-07-01 10:40 | ED.CHESTPAIN ---
HPI - Chest Pain <Ruy Watkins MD - Last Filed: 07/02/24 12:38> General Chief Complaint: Chest Pain Stated Complaint: Chest pain, numbness down LT arm Time Seen by Provider: 07/01/24 10:23 Source: patient Mode of arrival: Ambulatory Limitations: no limitations History of Present Illness HPI narrative: Patient here for nonreproducible substernal chest tightness 8/10 radiating to left arm. Started 1 hour ago. Patient seen here February 2024 and had non nuclear stress test which was equivocal. Has had heart catheterization at [facility] 1 year ago and was informed he had blockages. No stents were placed. No prior history of bypass surgery. Please see discharge notes from February 2024 below. Please see stress test results below as well. From H&P: Kristian Yin is a 68yo M with PMH of GERD with gastric ulcer, prior gastric bypass, non-obstructive CAD, HTN, HLD, DM2, depression, chronic anemia, and kidney stones who presented with chest pain. He has previous history of costochondritis. He had a non-nuclear treadmill a few weeks ago as an outpatient which was unremarkable. He reports severe, sharp chest pain on the left side of his sternum. It is worse with inspiration. It is reproducible. Patient had resting portion of his study performed already in the ER, so he was admitted as he requires a two part study with the second portion tomorrow. Ordered for stress testing from the ER, underwent resting portion already, with stress portion planned for tomorrow. Discharge Providers Provider Date of admission: 03/01/24 11:51 [place] [address] Nuclear Medicine Report Signed Patient: Kristian Yin MR#: [id number] : 1955 Acct:[id number] Age/Sex: 69 / M Date of Service: 02/18/24 Loc: ECHO Accession Number: [id number] Procedure: Exercise treadmill NON NUC Ordering Provider: Margaret Santiago MD PROCEDURE:NM EXERCISE TREADMILL NON NUC COMPARISON:None INDICATIONS:CHEST DISCOMFORT,SOB FINDINGS:Rest ECG sinus rhythm 68 bpm. Trevor protocol 4:50, maximum heart rate 160 bpm (107% peak predicted), peak blood pressure 180/81, 7.0 METS, TANNA 26%. Exercise ECG sinus tachycardia, no ST segment changes, frequent PACs and PVCs noted lasting into recovery. The patient describes 5 out of 10 substernal chest pain at peak exercise and exhibited moderate shortness of breath. IMPRESSION:Equivocal study. No evidence of exercise-induced EKG changes consistent with ischemia. Frequent exercise-induced PACs and PVCs noted lasting into recovery. Accelerated heart rate response. Normal blood pressure response. Exercise-induced chest discomfort. Reduced exercise capacity. Dictated by: Augustina Conde D.O. on 02/18/2024 at 16:27 Approved by: Augustina Conde D.O. on 02/18/2024 at 16:30 Related Data Home Medications Medication Instructions Recorded Confirmed multivitamin 1 tab PO DAILY 09/10/18 04/25/24 olanzapine 20 mg tablet 20 mg PO BEDTIME 12/18/20 04/25/24 metformin 1,000 mg tablet 500 mg PO BID 09/15/23 04/25/24 aspirin 81 mg tablet,delayed 81 mg PO DAILY 03/01/24 04/25/24 release (Adult Low Dose Aspirin) sertraline 100 mg tablet 100 mg PO DAILY 04/25/24 04/25/24 Previous Rx's Medication Instructions Recorded acetaminophen 325 mg tablet 650 mg (2 x 325 mg) PO Q6H PRN 01/18/23 Fever/Mild Pain (1-3) #50 tabs nitroglycerin 0.4 mg sublingual 0.4 mg sublingual [id number] PRN 01/18/23 tablet (Nitrostat) Chest Pain #30 tabs diclofenac sodium 1 % topical gel 2.25 inch topical BID sternal pain 03/02/24 #60 grams amlodipine 5 mg tablet 5 mg PO DAILY #30 tabs 04/28/24 ferrous sulfate 325 mg (65 mg 325 mg PO DAILY #30 tabs 04/28/24 iron) tablet magnesium chloride 71.5 mg 128 mg (1.7902 x 71.5 mg) PO 1XD 04/28/24 (magnesium chloride) #30 tabs tablet,delayed release (Slow-Mag) sodium,potassium,mag sulfates 17.5 See Rx Instructions PO .COMPLEX 06/02/24 gram-3.13 gram-1.6 gram oral soln #354 mL (Suprep Bowel Prep Kit) omeprazole 40 mg capsule,delayed 40 mg PO BID #60 caps 07/01/24 release oxycodone-acetaminophen 5 mg-325 1 tab PO Q6H PRN pain #14 tabs 07/01/24 mg tablet Allergies Allergy/AdvReac Type Severity Reaction Status Date / Time NSAIDS (Non-Steroidal AdvReac Mild CAN TAKE, Verified 07/16/23 11:02 Anti-Inflamma BUT TRIES [NSAIDS (NON-STEROIDAL TO AVOID ANTI-INFLAMMA] R/T GASTRIC BYPASS Review of Systems <Ruy Watkins MD - Last Filed: 07/02/24 12:38> Review of Systems Narrative: GENERAL: Negative chills, fatigue, malaise, fever, sweats. HEENT: Negative sinus pain, ear pain, sore throat RESPIRATORY: Negative dyspnea, cough CARDIOVASCULAR: Positive chest pain, palpitations GASTROINTESTINAL: Negative vomiting, nausea, abdominal pain : Negative dysuria, frequency, hematuria MUSCULOSKELETAL: Negative muscle or bony pain SKIN: Negative rash, skin lesions NEUROLOGIC: Negative weakness, numbness ROS Unobtainable: All systems reviewed & are unremarkable except as noted in HPI and below Patient History <Ruy Watkins MD - Last Filed: 07/02/24 12:38> Medical History GERD (gastroesophageal reflux disease) HNP (herniated nucleus pulposus), lumbar History of bleeding ulcers Hypertriglyceridemia Non-insulin dependent type 2 diabetes mellitus HTN (hypertension) Nephrolithiasis Degenerative disc disease Surgical History History of vasectomy History of colonoscopy History of cholecystectomy History of gastric bypass History of cervical spinal surgery Status post lumbar surgery Family History Mother No known health problems Father No known health problems Social History household members: spouse and family Smoking Status: Former smoker alcohol intake: former Smoking Status: Former smoker tobacco type: cigarettes alcohol intake frequency: holidays/special occasions only Exam <Ruy Watkins MD - Last Filed: 07/02/24 12:38> Narrative Exam Narrative: GENERAL: in no distress, not toxic not dyspneic HEAD: Normocephalic. EYES: Pupils equal round ENT: Mucous membranes moist. NECK: Trachea midline. CARDIOVASCULAR: Regular rate and rhythm RESPIRATORY: Clear to auscultation. Breath sounds equal bilaterally. No wheezes, rales, or rhonchi. GASTROINTESTINAL: Abdomen soft, non-tender EXTREMITIES: No gross deformities. BACK: No flank tenderness. NEURO: AOx4. Clear speech SKIN: Warm and dry PSYCH: Not anxious, is cooperative Initial Vital Signs Initial Vital Signs: Vital Signs Temperature 98.8 F 07/01/24 10:17 Pulse Rate 92 H 07/01/24 10:17 Respiratory Rate 19 07/01/24 10:17 Blood Pressure 123/74 07/01/24 10:17 Pulse Oximetry 94 07/01/24 10:17 Oxygen Delivery Method Room Air 07/01/24 10:17 <Paola Ratliff MD - Last Filed: 07/02/24 05:16> Initial Vital Signs Initial Vital Signs: Vital Signs Temperature 98.8 F 07/01/24 10:17 Pulse Rate 92 H 07/01/24 10:17 Respiratory Rate 19 07/01/24 10:17 Blood Pressure 123/74 07/01/24 10:17 Pulse Oximetry 94 07/01/24 10:17 Oxygen Delivery Method Room Air 07/01/24 10:17 Course <Ruy Watkins MD - Last Filed: 07/02/24 12:38> Orders Ordered: Discontinued Medications Aspirin (Aspirin 81 Mg Chew Tab) 324 mg PO NOW ONE Stop: 07/01/24 10:10 Last Admin: 07/01/24 10:23 Dose: 324 mg Documented By: ROYER Dexamethasone (Dexamethasone 10 Mg/Ml Vial) 10 mg IV NOW ONE Stop: 07/01/24 22:32 Last Admin: 07/01/24 22:38 Dose: 10 mg Documented By: EUSEBIO Morphine Sulfate (Morphine 4 Mg/Ml Inj) 4 mg IV NOW ONE Stop: 07/01/24 19:58 Last Admin: 07/01/24 20:00 Dose: 4 mg Documented By: EUSEBIO Morphine Sulfate (Morphine 4 Mg/Ml Inj) 4 mg IV NOW ONE Stop: 07/01/24 21:12 Last Admin: 07/01/24 21:19 Dose: 4 mg Documented By: EUSEBIO Nitroglycerin (Nitroglycerin Oint 1 Inch/Gm Oint...G.) 1 inch TOP NOW ONE Stop: 07/01/24 11:19 Last Admin: 07/01/24 11:22 Dose: 1 inch Documented By: EUSEBIO Vital Signs Vital signs: Vital Signs - 8 hr 07/01/24 21:30 07/01/24 23:09 Pulse Rate 93 H 108 H Respiratory Rate 16 16 Blood Pressure 164/86 H 153/83 H Pulse Oximetry 97 96 Oxygen Delivery Method Room Air Room Air <Paola Ratliff MD - Last Filed: 07/02/24 05:16> Orders Ordered: Discontinued Medications Aspirin (Aspirin 81 Mg Chew Tab) 324 mg PO NOW ONE Stop: 07/01/24 10:10 Last Admin: 07/01/24 10:23 Dose: 324 mg Documented By: ROYER Dexamethasone (Dexamethasone 10 Mg/Ml Vial) 10 mg IV NOW ONE Stop: 07/01/24 22:32 Last Admin: 07/01/24 22:38 Dose: 10 mg Documented By: EUSEBIO Morphine Sulfate (Morphine 4 Mg/Ml Inj) 4 mg IV NOW ONE Stop: 07/01/24 19:58 Last Admin: 07/01/24 20:00 Dose: 4 mg Documented By: EUSEBIO Morphine Sulfate (Morphine 4 Mg/Ml Inj) 4 mg IV NOW ONE Stop: 07/01/24 21:12 Last Admin: 07/01/24 21:19 Dose: 4 mg Documented By: EUSEBIO Nitroglycerin (Nitroglycerin Oint 1 Inch/Gm Oint...G.) 1 inch TOP NOW ONE Stop: 07/01/24 11:19 Last Admin: 07/01/24 11:22 Dose: 1 inch Documented By: EUSEBIO Vital Signs Vital signs: Vital Signs - 8 hr 07/01/24 21:30 07/01/24 23:09 Pulse Rate 93 H 108 H Respiratory Rate 16 16 Blood Pressure 164/86 H 153/83 H Pulse Oximetry 97 96 Oxygen Delivery Method Room Air Room Air MDM - Chest Pain <Ruy Watkins MD - Last Filed: 07/02/24 12:38> Lab Data 07/01/24 10:36 07/01/24 10:36 Labs: Lab Results 07/01/24 07/01/24 Range/Units 10:36 13:14 WBC 8.9 (4.5-11.0) X10^3/uL RBC 4.02 L (4.5-5.9) X10^6/uL Hgb 9.6 L (13.5-17.5) g/dL Hct 30.2 L (41-53) % MCV 75.1 L (80-100) fL MCH 23.9 L (26-34) PG MCHC 31.8 (30-36) % RDW 19.9 H (11.6-14.8) % Plt Count 285 (150-400) X10^3/uL Neut % (Auto) 79.0 H (50-75) % Lymph % (Auto) 12.4 L (25-40) % [place] % (Auto) 8.1 (3-14) % Eos % (Auto) 0.1 L (2-4) % Baso % (Auto) 0.4 (0-2) % Neut # (Auto) 7000 (1395-4859) /uL Lymph # (Auto) 1100 (4949-2868) /uL [place] # (Auto) 700 (0-900) /uL Eos # (Auto) 0 (0-450) /uL Baso # (Auto) 0 (0-100) /uL PT 15.1 H (9.4-12.5) SECONDS INR 1.3 (0.9-1.3) APTT 29 (25.1-36.5) SECONDS D-Dimer 872 H (<500) ng/ml Sodium 136 L (137-145) mmol/L Potassium 3.6 (3.4-5.1) mmol/L Chloride 100 (98-107) mmol/L Carbon Dioxide 27 (22-32) mmol/L BUN 17 (9-20) mg/dL Creatinine 1.24 (0.66-1.25) mg/dL Estimated GFR > 60 (>60) mL/min BUN/Creatinine Ratio 13.7 (6-22) Glucose 241 H (80-110) mg/dL Calcium 9.3 (8.4-10.2) mg/dL Magnesium 1.1 L (1.6-2.3) mg/dL Total Bilirubin 0.7 (0.2-1.3) mg/dL AST 31 (17-59) IU/L ALT 19 (<50) IU/L Alkaline Phosphatase 120 (38-126) U/L Total Creatine Kinase 64 63 (55-170) U/L Troponin I < 0.012 < 0.012 (0.01-0.034) ng/mL NT-Pro-B Natriuret Pep 504 H (<125) pg/mL Total Protein 6.9 (6.3-8.2) g/dL Albumin 3.8 (3.5-5.0) g/dL Globulin 3.1 (1.7-4.1) g/dL Albumin/Globulin Ratio 1.2 (1.0-2.8) Lipase 31 (23-300) U/L Imaging Data CT scan - chest: Radiologist's Impression: [place] [address] CT Scan Report Signed Patient: Kristian Yin MR#: [id number] : 1955 Acct:[id number] Age/Sex: 69 / M Date of Service: 07/01/24 Loc: ED Accession Number: [id number] Procedure: CT angio chest PE protocol Ordering Provider: Ruy Watkins MD PROCEDURE: CT ANGIO CHEST PE PROTOCOL INDICATIONS: chest pain with elevated D-Dimer TECHNIQUE: After the administration of intravenous contrast, 2 mm thick sections acquired from the pulmonary apices to the posterior costophrenic angles. 3-dimensional maximum intensity projection (MIP) coronal and sagittal reformats were then acquired through the thorax. For radiation dose reduction, the following was used: automated exposure control, adjustment of mA and/or kV according to patient size. COMPARISON: [facility], [place], CT ANGIO CHEST PE PROTOCOL, 08/28/2022, 16:47. FINDINGS: Image quality: Diagnostic. Pulmonary arteries: Pulmonary arteries are normal in size, and demonstrate no intraluminal filling defects to suggest central pulmonary embolism. Lower Neck: No enlarged lymph nodes. Thyroid: No thyroid nodules which require sonographic follow up, per consensus guidelines. Axillae: No enlarged lymph nodes. Chest Wall: Unremarkable. Bones: No aggressive appearing bony lesions. Postfusion changes are seen in lower cervical spine. Lungs and Pleura: No pneumothorax or pleural effusions. Mild bibasilar dependent atelectasis are seen posteriorly. No consolidation or suspicious nodule. Heart: Heart size is normal. Trace amount of pericardial effusion. Thoracic Vessels: Mild ascending thoracic aortic aneurysm measures up to 4.1 cm in largest AP diameter. No dissection. 3 vessel coronary artery atherosclerotic calcifications. Mediastinum and Donna: No enlarged lymph nodes. Esophagus: No wall thickening. Small to moderate sized hiatal hernia. Upper Abdomen: Postsurgical changes are noted from prior gastric bypass. IMPRESSION: 1. No pulmonary embolus. 2. Mild ascending thoracic aortic aneurysm measures up to 4.1 cm in largest AP diameter. No gross aortic dissection. 3. Trace amount of pericardial effusion. Moderate to severe 3 vessel coronary artery atherosclerotic calcifications. No mediastinal or hilar lymphadenopathy. Moderate size hiatal hernia. 4. Bibasilar dependent atelectasis. Bilateral lung [place] are otherwise clear. Dictated by: Brayan Diaz M.D. on 07/01/2024 at 15:00 Approved by: Brayan Diaz M.D. on 07/01/2024 at 15:04 Chest x-ray: Radiologist's Impression: [address] [address] XRay Report Signed Patient: Kristian Yin MR#: [id number] : 1955 Acct:[id number] Age/Sex: 69 / M Date of Service: 07/01/24 Loc: ED Accession Number: [id number] Procedure: XR chest 1V Ordering Provider: Ruy Watkins MD PROCEDURE: XR CHEST 1V INDICATIONS: chest pain TECHNIQUE: One view of the chest was acquired. COMPARISON: [facility], , XR CHEST 1V, 03/01/2024, 9:30. FINDINGS: Surgical changes and devices: Postsurgical changes are noted in lower cervical spine. Lungs and pleura: Lungs are clear. No pleural effusions or pneumothorax. Mediastinum: Mildly tortuous thoracic aorta. Heart size is normal. Bones and chest wall: No suspicious bony lesions. Overlying soft tissues appear unremarkable. IMPRESSION: No acute cardiopulmonary pathology. Dictated by: Brayan Diaz M.D. on 07/01/2024 at 10:34 Approved by: Brayan Diaz M.D. on 07/01/2024 at 10:35 [facility] Narrative Medical decision making narrative: Patient here for nonreproducible substernal chest tightness 8/10 radiating to left arm. Started 1 hour ago. Patient seen here February 2024 and had non nuclear stress test which was equivocal. Has had heart catheterization at [facility] 1 year ago and was informed he had blockages. No stents were placed. No prior history of bypass surgery. Please see discharge notes from February 2024 below. Please see stress test results below as well. After history and exam, patient already took 4 baby aspirin prior to arrival. CBC CMP troponin EKG chest x-ray PT INR, likely transfer, patient's see [facility] Cardiology dr santiago, nitro paste [facility] Medical records reviewed: Discharge summary from February 2024. Stress test from February 2024. Differential considered: Includes but not limited to STEMI non-STEMI angina unstable angina Lab Test results independently reviewed as above. Pertinent findings: Troponin less than 0.012 x2 Independently reviewed EKG sinus rhythm rate [address] elevation or depression Imaging studies independently reviewed: Chest x-ray no acute finding CT chest no pulmonary embolism. Consultations: 11:55 a.m.. Spoke with Cardiology Dr. Diaz, he is on-call for Dr. Santiago, patient can be discharged home if normal troponin. Can follow up in the clinic. Patient had normal heart catheterization in 2021. He does not feel that patient needs to be admitted or transferred or heparin or urgent repeat heart catheterization or stress test. 3:[address] Diaz, cardiology, patient is still not feeling well. He does agree patient should be transferred to another facility or [facility] for further evaluation. May need heart catheterization. No heparin indicated at this time. Re-evaluations: 4:00 p.m.. Updated patient he does understand will be transferred out of the hospital as we do not have any cardiac resources this weekend. May need heart catheterization or a different cardiac stress test. Currently chest pain-free. Discussion: 6:[address] Watkins: Sign out to Dr. Ratliff, awaiting for facility to accept patient. Patient will need heart catheterization versus more extended cardiac stress test. Cardiology has been contacted today. Dr Ratliff 1045pm discussed his case with admitting hospitalist Dr. Matthias Rice. In reviewing all of his details, Central chest pain worse with a deep breath and movement, prior history of gastric bypass, gastric ulcer not currently on a proton pump inhibitor. Has been recently evaluated by his primary care physician and has upper endoscopy and colonoscopy scheduled in approximately 2-1/2 weeks. 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 With nitro paste on, patient's chest pain has remained at 6/10, is worse with a deep breath and movement. Not reproducible with palpation. All labs reviewed with negative troponin x2, CT angiogram shows a trace pericardial effusion with coronary artery atherosclerosis calcification seen. No pulmonary embolism. All findings and plan were reviewed with the patient. With shared decision-making, we opted to change current care plans. I suspect that his pain is not cardiac at this point I do suspect that it likely is GI in nature. Morphine did not seem to help significantly with pain control but he would like to have some pain medication at home. He can not use nonsteroidals. He was given a dose of dexamethasone in the emergency department to see if this might help with some of the inflammatory component of his pain. I am going to suggest proton pump inhibitor 40 mg omeprazole b.i.d. for 2 weeks then decrease to 40 mg daily and encourage him to keep his appointments with his primary care physician and upcoming gastroenterology appointment. He is safe for discharge <Paola Ratliff MD - Last Filed: 07/02/24 05:16> Lab Data Labs: Lab Results 07/01/24 07/01/24 Range/Units 10:36 13:14 WBC 8.9 (4.5-11.0) X10^3/uL RBC 4.02 L (4.5-5.9) X10^6/uL Hgb 9.6 L (13.5-17.5) g/dL Hct 30.2 L (41-53) % MCV 75.1 L (80-100) fL MCH 23.9 L (26-34) PG MCHC 31.8 (30-36) % RDW 19.9 H (11.6-14.8) % Plt Count 285 (150-400) X10^3/uL Neut % (Auto) 79.0 H (50-75) % Lymph % (Auto) 12.4 L (25-40) % [place] % (Auto) 8.1 (3-14) % Eos % (Auto) 0.1 L (2-4) % Baso % (Auto) 0.4 (0-2) % Neut # (Auto) 7000 (6478-6237) /uL Lymph # (Auto) 1100 (3243-9937) /uL [place] # (Auto) 700 (0-900) /uL Eos # (Auto) 0 (0-450) /uL Baso # (Auto) 0 (0-100) /uL PT 15.1 H (9.4-12.5) SECONDS INR 1.3 (0.9-1.3) APTT 29 (25.1-36.5) SECONDS D-Dimer 872 H (<500) ng/ml Sodium 136 L (137-145) mmol/L Potassium 3.6 (3.4-5.1) mmol/L Chloride 100 (98-107) mmol/L Carbon Dioxide 27 (22-32) mmol/L BUN 17 (9-20) mg/dL Creatinine 1.24 (0.66-1.25) mg/dL Estimated GFR > 60 (>60) mL/min BUN/Creatinine Ratio 13.7 (6-22) Glucose 241 H (80-110) mg/dL Calcium 9.3 (8.4-10.2) mg/dL Magnesium 1.1 L (1.6-2.3) mg/dL Total Bilirubin 0.7 (0.2-1.3) mg/dL AST 31 (17-59) IU/L ALT 19 (<50) IU/L Alkaline Phosphatase 120 (38-126) U/L Total Creatine Kinase 64 63 (55-170) U/L Troponin I < 0.012 < 0.012 (0.01-0.034) ng/mL NT-Pro-B Natriuret Pep 504 H (<125) pg/mL Total Protein 6.9 (6.3-8.2) g/dL Albumin 3.8 (3.5-5.0) g/dL Globulin 3.1 (1.7-4.1) g/dL Albumin/Globulin Ratio 1.2 (1.0-2.8) Lipase 31 (23-300) U/L MDM Narrative Medical decision making narrative: Patient here for nonreproducible substernal chest tightness 8/10 radiating to left arm. Started 1 hour ago. Patient seen here February 2024 and had non nuclear stress test which was equivocal. Has had heart catheterization at [facility] 1 year ago and was informed he had blockages. No stents were placed. No prior history of bypass surgery. Please see discharge notes from February 2024 below. Please see stress test results below as well. After history and exam, patient already took 4 baby aspirin prior to arrival. CBC CMP troponin EKG chest x-ray PT INR, likely transfer, patient's see [facility] Cardiology dr santiago, nitro paste [facility] Medical records reviewed: Discharge summary from February 2024. Stress test from February 2024. Differential considered: Includes but not limited to STEMI non-STEMI angina unstable angina Lab Test results independently reviewed as above. Pertinent findings: Troponin less than 0.012 x2 Independently reviewed EKG sinus rhythm rate [address] elevation or depression Imaging studies independently reviewed: Chest x-ray no acute finding CT chest no pulmonary embolism. Consultations: 11:55 a.m.. Spoke with Cardiology Dr. Diaz, he is on-call for Dr. Santiago, patient can be discharged home if normal troponin. Can follow up in the clinic. Patient had normal heart catheterization in 2021. He does not feel that patient needs to be admitted or transferred or heparin or urgent repeat heart catheterization or stress test. 3:[address] Diaz, cardiology, patient is still not feeling well. He does agree patient should be transferred to another facility or [facility] for further evaluation. May need heart catheterization. No heparin indicated at this time. Re-evaluations: 4:00 p.m.. Updated patient he does understand will be transferred out of the hospital as we do not have any cardiac resources this weekend. May need heart catheterization or a different cardiac stress test. Currently chest pain-free. Discussion: 6:[address] Watkins: Sighn out to Dr. Ratliff, awaiting for facility to accept patient. Patient will need heart catheterization versus more extended cardiac stress test. Cardiology has been contacted today. Dr Ratliff 1045pm discussed his case with admitting hospitalist Dr. Matthias Rice. In reviewing all of his details, Central chest pain worse with a deep breath and movement, prior history of gastric bypass, gastric ulcer not currently on a proton pump inhibitor. Has been recently evaluated by his primary care physician and has upper endoscopy and colonoscopy scheduled in approximately 2-1/2 weeks. 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 With nitro paste on, patient's chest pain has remained at 6/10, is worse with a deep breath and movement. Not reproducible with palpation. All labs reviewed with negative troponin x2, CT angiogram shows a trace pericardial effusion with coronary artery atherosclerosis calcification seen. No pulmonary embolism. All findings and plan were reviewed with the patient. With shared decision-making, we opted to change current care plans. I suspect that his pain is not cardiac at this point I do suspect that it likely is GI in nature. Morphine did not seem to help significantly with pain control but he would like to have some pain medication at home. He can not use nonsteroidals. He was given a dose of dexamethasone in the emergency department to see if this might help with some of the inflammatory component of his pain. I am going to suggest proton pump inhibitor 40 mg omeprazole b.i.d. for 2 weeks then decrease to 40 mg daily and encourage him to keep his appointments with his primary care physician and upcoming gastroenterology appointment. He is safe for discharge Discharge Plan Departure Patient Disposition: Home Clinical Impression: Chest pain, non-cardiac Gastritis Qualifiers: Gastritis type: unspecified gastritis Chronicity: chronic Gastritis bleeding: without bleeding Qualified Code(s): K29.50 - Unspecified chronic gastritis without bleeding Instructions: DI for Gastritis, DI for Pleurisy Activity Restrictions/Additional Instructions: Thank you for coming in today You had multiple physicians and extensive evaluations with some plan changes throughout your emergency room course. With chest pain, obviously the 1st concern is for heart issues. Your troponin and repeat troponin, chemicals made by your heart if you are having damage to your heart, were both negative. The CT scan of your chest did not show blood clots in your lungs or other life-threatening findings. You have had nitroglycerin in place for the last 6 hours with no change in your chest pain. Morphine did not change her chest pain. You note that your pain seems to be worse with deep breathing which suggests more inflammatory pain. You are given 10 mg of dexamethasone which is an anti-inflammatory steroid to see if this will help with the pain over the next couple of days. I believe the most likely source of your pain is irritation to your stomach lining and I am glad that you are scheduled to have an upper and lower endoscopy in the next couple of weeks. I am going to give you a prescription for omeprazole and suggest that you use 40 mg twice a day for 2 weeks then decrease to 40 mg daily. For acute pain control I have given you a small number of Percocet to see if this help so the ear at least comfortable enough to get some sleep If you find that you are getting worse or have new symptoms please return to the ER Prescriptions: New oxycodone-acetaminophen 5-325 mg tablet 1 tab PO Q6H PRN (Reason: pain) Qty: 14 0RF omeprazole 40 mg capsule,delayed release(DR/EC) 40 mg PO BID Qty: 60 0RF No Action sodium,potassium,mag sulfates [Suprep Bowel Prep Kit] 17.5-3.13-1.6 gram recon soln See Rx Instructions PO .COMPLEX Qty: 354 0RF Rx Instructions: take as directed by Physician acetaminophen 325 mg Tablet 650 mg PO Q6H PRN (Reason: Fever/Mild Pain (1-3)) Qty: 50 0RF nitroglycerin [Nitrostat] 0.4 mg Tablet, Sublingual 0.4 mg sublingual [id number] PRN (Reason: Chest Pain) Qty: 30 0RF metformin 1,000 mg tablet 500 mg PO BID aspirin [Adult Low Dose Aspirin] 81 mg Tablet,Delayed Release (Dr/Ec) 81 mg PO DAILY diclofenac sodium 1 % Gel 2.25 inch topical BID Qty: 60 0RF multivitamin Tablet 1 tab PO DAILY olanzapine 20 mg tablet 20 mg PO BEDTIME Patient Comments: take 1 tablet by mouth at bedtime sertraline 100 mg tablet 100 mg PO DAILY amlodipine 5 mg Tablet 5 mg PO DAILY Qty: 30 1RF ferrous sulfate 325 mg (65 mg iron) Tablet 325 mg PO DAILY Qty: 30 1RF Slow-Mag 71.5 mg Tablet,Delayed Release (Dr/Ec) 128 mg PO 1XD Qty: 30 0RF Referrals: Shin José PA-C [Primary Care Provider] - Stand Alone Forms: Patient Portal/API/Survey, Work Release Note
[2024-07-01 10:50] LABS: INR 1.3 (0.9-1.3); Prothrombin Time 15.1 SECONDS (9.4-12.5)
[2024-07-01 10:53] LABS: PTT Partial Thromboplastin Tim 29 SECONDS (25.1-36.5)
[2024-07-01 10:55] LABS: Add Manual Diff / Slide Review NO; Basophils Absolute Auto 0 /uL (0-100); Basophils Percent Auto 0.4 % (0-2); Eosinophils Absolute Auto 0 /uL (0-450); Eosinophils Percent Auto 0.1 % (2-4); Hematocrit 30.2 % (41-53); Hemoglobin 9.6 g/dL (13.5-17.5); Lymphocytes Absolute Auto 1100 /uL (1100-4500); Lymphocytes Percent Auto 12.4 % (25-40); Mean Corpuscular HGB Conc 31.8 % (30-36); Mean Corpuscular Hemoglobin 23.9 PG (26-34); Mean Corpuscular Volume 75.1 fL (80-100); Monocytes Absolute Auto 700 /uL (0-900); Monocytes Percent Auto 8.1 % (3-14); Neutrophils Absolute Auto 7000 /uL (1500-7000); Platelet Count 285 X10^3/uL (150-400); Red Blood Cell Count 4.02 X10^6/uL (4.5-5.9); Red Cell Distribution Width 19.9 % (11.6-14.8); White Blood Cell Count 8.9 X10^3/uL (4.5-11.0)
[2024-07-01 11:04] LABS: Alanine Aminotransferase 19 IU/L (<50); Albumin 3.8 g/dL (3.5-5.0); Albumin Globulin Ratio 1.2 (1.0-2.8); Alkaline Phosphatase 120 U/L (38-126); Aspartate Aminotransferase 31 IU/L (17-59); BUN Creatinine Ratio 13.7 (6-22); Bilirubin Total 0.7 mg/dL (0.2-1.3); Blood Urea Nitrogen 17 mg/dL (9-20); Calcium 9.3 mg/dL (8.4-10.2); Carbon Dioxide 27 mmol/L (22-32); Chloride 100 mmol/L (98-107); Creatine Kinase 64 U/L (55-170); Estimated Glomerular Filt Rate > 60 mL/min (>60); Globulin 3.1 g/dL (1.7-4.1); Glucose 241 mg/dL (80-110); Lipase 31 U/L (23-300); Magnesium 1.1 mg/dL (1.6-2.3); Potassium 3.6 mmol/L (3.4-5.1); Sodium 136 mmol/L (137-145); Total Protein 6.9 g/dL (6.3-8.2)
[2024-07-01 11:17] LABS: HEMOLYSIS < 15 (0-50); NT-proBNP (BNP-Adult 18+) 504 pg/mL (<125); Troponin I < 0.012 ng/mL (0.01-0.034)
[2024-07-01] MEDS: NITROGLYCERIN OINT 1 INCH/GM OINT...G. TOP (11:22)
--- NOTE | 2024-07-01 11:27 | PC.NURSE ---
pt complained of chest pain. Pain started this morning while at rest and is located in his left chest. he has history of angina and has nitro tabs at home. he was at work when the pain started and was taken to the ED by a coworker. 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 Provider aware of pain, nitro paste ordered and administered by the nurse.
[2024-07-01 12:07] LABS: D Dimer 872 ng/ml (<500)
[2024-07-01 13:37] LABS: Creatine Kinase 63 U/L (55-170)
[2024-07-01 13:50] LABS: Troponin I < 0.012 ng/mL (0.01-0.034)
--- NOTE | 2024-07-01 13:53 | PC.NURSE ---
PT states cough started today. Has been having sweating at nights. Had him sit up to listen to lungs and he struggled to sit up stating he feels weak. His temp is 98.5 oral. Lungs sound clear bilaterally and throughout.
--- NOTE | 2024-07-01 14:07 | DI.CT.S_ITS ---
PROCEDURE: CT ANGIO CHEST PE PROTOCOL INDICATIONS: chest pain with elevated D-Dimer TECHNIQUE: After the administration of intravenous contrast, 2 mm thick sections acquired from the pulmonary apices to the posterior costophrenic angles. 3-dimensional maximum intensity projection (MIP) coronal and sagittal reformats were then acquired through the thorax. For radiation dose reduction, the following was used: automated exposure control, adjustment of mA and/or kV according to patient size. COMPARISON: [facility], CT, CT ANGIO CHEST PE PROTOCOL, 08/28/2022, 16:47. FINDINGS: Image quality: Diagnostic. Pulmonary arteries: Pulmonary arteries are normal in size, and demonstrate no intraluminal filling defects to suggest central pulmonary embolism. Lower Neck: No enlarged lymph nodes. Thyroid: No thyroid nodules which require sonographic follow up, per consensus guidelines. Axillae: No enlarged lymph nodes. Chest Wall: Unremarkable. Bones: No aggressive appearing bony lesions. Postfusion changes are seen in lower cervical spine. Lungs and Pleura: No pneumothorax or pleural effusions. Mild bibasilar dependent atelectasis are seen posteriorly. No consolidation or suspicious nodule. Heart: Heart size is normal. Trace amount of pericardial effusion. Thoracic Vessels: Mild ascending thoracic aortic aneurysm measures up to 4.1 cm in largest AP diameter. No dissection. 3 vessel coronary artery atherosclerotic calcifications. Mediastinum and Donna: No enlarged lymph nodes. Esophagus: No wall thickening. Small to moderate sized hiatal hernia. Upper Abdomen: Postsurgical changes are noted from prior gastric bypass. IMPRESSION: 1. No pulmonary embolus. 2. Mild ascending thoracic aortic aneurysm measures up to 4.1 cm in largest AP diameter. No gross aortic dissection. 3. Trace amount of pericardial effusion. Moderate to severe 3 vessel coronary artery atherosclerotic calcifications. No mediastinal or hilar lymphadenopathy. Moderate size hiatal hernia. 4. Bibasilar dependent atelectasis. Bilateral lung [place] are otherwise clear. Dictated by: Brayan Diaz M.D. on 07/01/2024 at 15:00 Approved by: Brayan Diaz M.D. on 07/01/2024 at 15:04
[2024-07-01] MEDS: MORPHINE 4 MG/ML INJ IV ×2 (20:00→21:19)
[2024-07-01] MEDS: DEXAMETHASONE 10 MG/ML VIAL IV (22:38)
== END 2024-07-01 23:11 | disposition home or self-care (01) ==
PROVIDERS: Emergency Medicine; Emergency Provider Emergency Medicine; PCP Student in an Organized Health Care Education/Training Program
DX: R07.89 Other chest pain (principal); K29.50 Unspecified chronic gastritis without bleeding; Z98.84 Bariatric surgery status; I25.10 Atherosclerotic heart disease of native coronary artery without angina pectoris; Z86.79 Personal history of other diseases of the circulatory system; Z87.891 Personal history of nicotine dependence
CPT/HCPCS: 36415; 71045; 71275; 80053; 82550; 83690; 83735; 83880; 84484; 85025; 85379; 85610; 85730; 93005; 93010; 96374; 96375; 96376; 99284; J1100; J2270; Q9967

== ENCOUNTER 2024-07-21 10:57 | Day surgery (SDC) | payer MEDICARE, OTHER, SELFPAY ==
[2024-04-25 15:23] VITALS: BMI 29.0
--- NOTE | 2024-07-21 | PATH_ITS ---
[facility] Accession Number: [id number] No. of containers..01 Tissue . 01 Material submitted: . stomach - STOMACH . 01 Diagnosis: STOMACH, BIOPSY: Gastric antral and body mucosa with no diagnostic abnormality. No evidence of Helicobacter organisms on H/E stain. Negative for intestinal metaplasia. Negative for dysplasia or malignancy. MRV 07/25/2024 1345 Local . 01 Electronically signed: . Buck Leon MD, PhD, Pathologist NPI- [id number] . 01 Gross description: . Received in formalin with two patient identifiers and 1. Stomach biopsy, are four hunt soft tissue fragments, 0.2 to 0.6 cm. Submitted entirely in A1. ([id number]) /MRV 07/23/2024 1737 Local . 01 Pathologist provided ICD-10: Z87.19, R10.13 . 01 CPT . 388635 Specimen Comment: A courtesy copy of this report has been sent to [phone] Performed at: [address] [id number] MD Fidel Garcia MD Phone: [phone]
[2024-07-21] MEDS: LACTATED RINGERS 1,000 ML 42 ML IV (12:18)
[2024-07-21 12:19] VITALS: BP 177/87; PULSE 93; RESP 16; TEMP 36.5; O2SAT 100
--- NOTE | 2024-07-21 12:36 | P.HP_ITS ---
History of Present Illness History of Present Illness Date Patient Seen: 07/21/24 Time Patient Seen: 12:36 Chief complaint: EGD & Colonoscopy w/poss bx's Narrative: Kristian is a 69-year-old man who presents for an EGD and colonoscopy. He has a history of gastric surgery and ulcers. He has a history of tubular adenoma on colonoscopy. He has had recent chest pain that was worked up and found to be noncardiac. [facility] Medical History GERD (gastroesophageal reflux disease) HNP (herniated nucleus pulposus), lumbar History of bleeding ulcers Hypertriglyceridemia Non-insulin dependent type 2 diabetes mellitus HTN (hypertension) Nephrolithiasis Degenerative disc disease Surgical History History of vasectomy History of colonoscopy History of cholecystectomy History of gastric bypass History of cervical spinal surgery Status post lumbar surgery Family History Mother No known health problems Father No known health problems Social History household members: spouse and family Smoking Status: Former smoker alcohol intake: former Meds Home Medications and Allergies Home Medications Medication Instructions Recorded Confirmed Type multivitamin 1 tab PO DAILY 09/10/18 07/21/24 History olanzapine 20 mg tablet 20 mg PO BEDTIME 12/18/20 07/21/24 History acetaminophen 325 mg tablet 650 mg (2 x 325 mg) PO Q6H PRN 01/18/23 07/21/24 Rx Fever/Mild Pain (1-3) #50 tabs nitroglycerin 0.4 mg sublingual 0.4 mg sublingual [id number] PRN 01/18/23 07/21/24 Rx tablet (Nitrostat) Chest Pain #30 tabs metformin 1,000 mg tablet 500 mg PO BID 09/15/23 07/21/24 History diclofenac sodium 1 % topical gel 2.25 inch topical BID sternal pain 03/02/24 04/25/24 Rx #60 grams sertraline 100 mg tablet 100 mg PO DAILY 04/25/24 07/21/24 History amlodipine 5 mg tablet 5 mg PO DAILY #30 tabs 04/28/24 07/21/24 Rx ferrous sulfate 325 mg (65 mg 325 mg PO DAILY #30 tabs 04/28/24 07/21/24 Rx iron) tablet magnesium chloride 71.5 mg 128 mg (1.7902 x 71.5 mg) PO 1XD 04/28/24 Rx (magnesium chloride) #30 tabs tablet,delayed release (Slow-Mag) omeprazole 40 mg capsule,delayed 40 mg PO BID #60 caps 07/01/24 07/21/24 Rx release Allergies Allergy/AdvReac Type Severity Reaction Status Date / Time NSAIDS (Non-Steroidal AdvReac Mild CAN TAKE, Verified 07/21/24 12:10 Anti-Inflamma BUT TRIES [NSAIDS (NON-STEROIDAL TO AVOID ANTI-INFLAMMA] R/T GASTRIC BYPASS Exam Vital Signs (past 8 hours): - 07/21/24 12:19 Temperature 97.7 F Pulse Rate 93 H Respiratory Rate 16 Blood Pressure 177/87 H Pulse Oximetry 100 Oxygen Delivery Method Room Air Oxygen Delivery Method Room Air Const General: No acute distress Assessment & Plan Assessment and plan (1) History of gastric bypass: Status: Acute (2) History of gastric ulcer: Status: Acute Plan EGD and colonoscopy Time-Based Coding :: [TOTAL MINUTES] spent with patient and on the chart (including review of chart, obtaining history, exam, reviewing outside data, placing orders, documenting exam and treatment plan, and counseling patient) on [DATE]. [employer] Technician Document charge(s): No
--- NOTE | 2024-07-21 12:56 | SUR.OPER ---
047 EGD SCOPE / 185 COLONOSCOPE
--- NOTE | 2024-07-21 13:13 | PM.OP.EC ---
Operative Date/Time/Diagnoses Date of procedure: 07/21/24 Time of procedure: 13:13 Pre-op diagnosis: History of gastric ulcers and colon polyps Post-op diagnosis: same Procedure & Clinicians Study performed: Esophagogastroduodenoscopy Colonoscopy Same procedure as scheduled: Yes Surgeon: Suraj Ferrera Procedure Notes Procedure in detail: Surgeon: Suraj Ferrera MD Anesthesia: Shanae North CRNA A timeout was performed. A bite blocked was placed. The patient was positioned in the left lateral decubitus position. Anesthesia was administered. The endoscope was inserted through the bite block and passed through the esophagus and stomach and into the jejunal limb. The jejunal mucosa appeared normal. The scope was withdrawn into the stomach. There was a nonbleeding marginal ulcer near the gastrojejunal anastomosis. Random biopsies were taken with cold forceps from the gastric mucosa. The scope was retroflexed and no hiatal was seen. The scope was withdrawn into the esophagus and no other abnormalities. The remainder of the esophagus was normal. The scope was withdrawn. The patient was awakened and brought to recovery. EGD findings: Nonbleeding marginal ulcer near the gastrojejunal anastomosis Next we repositioned the patient for a colonoscopy. A digital rectal exam was performed and was normal. The colonoscope was inserted and advanced to the cecum. The appendiceal orifice was identified and photographed. The scope was slowly withdrawn over greater than 6 minutes. No abnormalities were found. The scope was retroflexed in the rectum and no abnormalities were seen. Colonoscopy findings: Normal colon Total procedural EBL: 5 mL Scope withdrawal time: 6 minutes Sedation minutes: 27 minute Post-procedure Disposition: PACU
[2024-07-21 13:16] VITALS: BP 111/51; PULSE 69; RESP 16; TEMP 36.6; O2SAT 99
[2024-07-21 13:28] VITALS: BP 144/72; PULSE 80; RESP 16; TEMP 36.9; O2SAT 99
== END 2024-07-21 13:32 | disposition home or self-care (01) ==
PROVIDERS: PCP Student in an Organized Health Care Education/Training Program; Referring Provider Surgery; Visit Provider Surgery
PROC: 0DJ08ZZ Inspection of Upper Intestinal Tract, Via Natural or Artificial Opening Endoscopic (ICD-10-PCS; CPT 43239; principal; 2024-07-21 13:00)
PROC: 0DJD8ZZ Inspection of Lower Intestinal Tract, Via Natural or Artificial Opening Endoscopic (ICD-10-PCS; CPT 45378; 2024-07-21 13:00)
DX: Z12.11 Encounter for screening for malignant neoplasm of colon (principal); Z86.0100 Personal history of colon polyps, unspecified; Z87.11 Personal history of peptic ulcer disease
CPT/HCPCS: 43239; G0105; J2704

== ENCOUNTER 2024-09-01 08:42 | Emergency (ER) | payer MEDICARE, OTHER, SELFPAY ==
[2024-04-25 15:23] VITALS: BMI 29.0
[2024-09-01] VITALS (44 sets, daily range): BP systolic 117–204; BP diastolic 62–93; PULSE 65–90; RESP 12–30; TEMP 37.2; O2SAT 95–100; BMI 29.0
--- NOTE | 2024-09-01 08:44 | DI.RAD.S_ITS ---
PROCEDURE: XR CHEST 1V INDICATIONS: chest pain TECHNIQUE: One view of the chest was acquired. COMPARISON: [facility], CR, XR CHEST 1V, 07/01/2024, 10:14. FINDINGS: Mild bibasilar subsegmental atelectasis some of which may be related to expiratory result. Degenerative changes of the thoracic spine unchanged. No pneumothorax, no pleural effusion, no lobar consolidation. Cardiopericardial silhouette and pulmonary vasculature within normal limits. IMPRESSION: Mild bibasilar subsegmental atelectasis. If symptoms persist or worsen, or there is high clinical suspicion of thoracic abnormality, CT chest could be performed. Dictated by: Brent Lagunas M.D. on 09/01/2024 at 10:12 Approved by: Brent Lagunas M.D. on 09/01/2024 at 10:31
--- NOTE | 2024-09-01 08:49 | EKG_ITS ---
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
--- NOTE | 2024-09-01 08:59 | ED_ITS ---
HPI - Chest Pain General Chief Complaint: Chest Pain Stated Complaint: Mild chest pain. SOB this morning Time Seen by Provider: 09/01/24 08:45 Source: patient Mode of arrival: Family Vehicle Limitations: no limitations History of Present Illness HPI narrative: 69-year-old gentleman history of GERD with gastric ulcer prior gastric bypass, nonobstructive CAD, hypertension, dyslipidemia, type 2 diabetes, depression, chronic anemia, kidney stones, seen most recently on 07/01/2024 for similar presentation which he woke up this morning at 5:30 a.m. with midsternal chest pain described as sharp constant pain radiating to left shoulder for which he did not take anything for this rated as 8/10 and shortness of breath with activity and rest. He had a recent stress test done last year which did not show any evidence of exercise-induced EKG changes consistent with ischemia but there was frequent extra beats induced PACs and PVCs noted lasting into recovery. Other than what is stated 14 point review of system is negative Related Data Home Medications ?Medication ?Instructions ?Recorded ?Confirmed multivitamin 1 tab PO DAILY 09/10/1811/07 olanzapine 20 mg tablet 20 mg PO BEDTIME 12/18/20 metformin 1,000 mg tablet 500 mg PO BID 09/15/2307/21 sertraline 100 mg tablet 100 mg PO DAILY 04/25/2411/07 Previous Rx's ?Medication ?Instructions ?Recorded acetaminophen 325 mg tablet 650 mg (2 x 325 mg) PO Q6H PRN 01/18/23 Fever/Mild Pain (1-3) #50 tabs nitroglycerin 0.4 mg sublingual 0.4 mg sublingual Q5MI NX3 PRN 01/18/23 tablet (Nitrostat) Chest Pain #30 tabs diclofenac sodium 1 % topical gel 2.25 inch topical BI D sternal pain 03/02/24 #60 grams amlodipine 5 mg tablet 5 mg PO DAILY #30 tabs 04/28 ferrous sulfate 325 mg (65 mg 325 mg PO DAILY #30 tabs 04/28/24 iron) tablet magnesium chloride 71.5 mg 128 mg (1.7902 x 71.5 mg) P O 1XD 04/28/24 (magnesium chloride) #30 tabs tablet,delayed release (Slow-Mag) omeprazole 40 mg capsule,delayed 40 mg PO BID #60 caps 07/01/24 release Allergies Allergy/AdvReac Type Severity Reaction Status Date / Time NSAIDS (Non-Steroidal AdvReac Mild CAN TAKE, Verified 09/01/24 08:49 Anti-Inflamma (NSAIDS BUT TRIES (NON-STEROIDAL ANTI-INFLAMMA) TO AVOID R/T GASTRIC BYPASS Review of Systems Review of Systems ROS Unobtainable: All systems reviewed & are unremarkable except as noted in HPI and below Patient History Medical History GERD (gastroesophageal reflux disease) HNP (herniated nucleus pulposus), lumbar History of bleeding ulcers Hypertriglyceridemia Non-insulin dependent type 2 diabetes mellitus HTN (hypertension) Nephrolithiasis Degenerative disc disease Surgical History History of vasectomy History of colonoscopy History of cholecystectomy History of gastric bypass History of cervical spinal surgery Status post lumbar surgery Family History Mother No known health problems Father No known health problems Social History household members: spouse and family Smoking Status: Former smoker alcohol intake: former Smoking Status: Former smoker tobacco type: cigarettes alcohol intake frequency: holidays/special occasions only Exam Narrative Exam Narrative: GENERAL: [69] year old patient appears stated age. Well-developed patient, in mild distress. HEAD: Atraumatic. Normocephalic. EYES: Pupils equal round and reactive. Extraocular motions intact. No scleral icterus. No injection or drainage. ENT: Nose without bleeding, purulent drainage. Throat without erythema, tonsillar hypertrophy or exudate. Airway patent. NECK: Trachea midline. Non tender CARDIOVASCULAR: Regular rate and rhythm without murmurs, gallops, or rubs. L ant chest wall TTP reproduces pain RESPIRATORY: Clear to auscultation. Breath sounds equal bilaterally. No wheezes, rales, or rhonchi. GASTROINTESTINAL: Abdomen soft, non-tender, nondistended. EXTREMITIES: No edema or joint tenderness. BACK: Nontender without deformity or crepitance. No flank tenderness. NEURO: AOx3. SKIN: No rash or erythema of visible areas Initial Vital Signs Initial Vital Signs: Vital Signs Temperature 98.9 F 09/01/24 08:49 Pulse Rate 83 09/01/24 08:49 Respiratory Rate 17 09/01/24 08:49 Blood Pressure 159/74 H 09/01/24 08:49 Pulse Oximetry 97 09/01/24 08:49 Oxygen Delivery Method Room Air 09/01/24 08:49 Scores HEART Score Heart Score history: Moderately Suspicious Heart Score EKG: Non-Specific repolarization disturbance Heart Score Age: > or = 65 years old Heart Score risk factors: > 3 risk factors or hx of atherosclerotic disease Heart Score troponin: < or = to normal limit Heart Score Total: 6 Course Orders Ordered: ED Orders 09/01/24 08:44 XR chest 1V Stat EKG-12 Lead Stat 09/01/24 09:20 Complete Blood Count AUTO DIFF Stat Comprehensive Metabolic Panel Stat Lipase Stat Magnesium Stat NT-proBNP (BNP-Adult 18+) Stat PTT Partial Thromboplastin Neo Stat Prothrombin Time INR Stat Troponin & CK Cardiac Panel Stat 09/01/24 11:13 EKG-12 Lead Stat 09/01/24 11:16 Troponin I Stat Discontinued Medications Aspirin (Aspirin 81 Mg Chew Tab) 324 mg PO NOW ONE Stop: 09/01/24 08:45 Last Admin: 09/01/24 09:29 Dose: 324 mg Documented By: ABEL Aspirin (Aspirin Ec 325 Mg Tablet) 325 mg PO NOW ONE Stop: 09/01/24 09:24 Last Admin: 09/01/24 09:24 Dose: Not Given Documented By: ABEL Morphine Sulfate (Morphine 4 Mg/Ml Inj) 4 mg IV NOW ONE Stop: 09/01/24 10:16 Last Admin: 09/01/24 10:39 Dose: 4 mg Documented By: ABEL Morphine Sulfate (Morphine 4 Mg/Ml Inj) 4 mg IV NOW ONE Stop: 09/01/24 12:04 Nitroglycerin (Nitroglycerin 0.4 Mg Sl Tab) 0.4 mg SL [id number] PRN PRN Reason: Chest Pain Last Admin: 09/01/24 10:28 Dose: 0.4 mg Documented By: Admin: 09/01/24 10:00 Dose: 0.4 mg Documented By: Admin: 09/01/24 09:30 Dose: 0.4 mg Documented By: ABEL Vital Signs Vital signs: Vital Signs - 8 hr 09/01/24 08:49 09/01/24 09:30 09/01/24 09:33 Temperature 98.9 F Pulse Rate 83 72 79 Respiratory Rate 17 Blood Pressure 159/74 H 155/69 H Pulse Oximetry 97 96 Oxygen Delivery Method Room Air 09/01/24 09:33 09/01/24 09:36 09/01/24 09:36 Temperature Pulse Rate 90 Respiratory Rate 21 Blood Pressure 139/70 122/62 Pulse Oximetry 95 Oxygen Delivery Method 09/01/24 09:39 09/01/24 09:39 09/01/24 09:42 Temperature Pulse Rate 89 Respiratory Rate 18 Blood Pressure 124/64 127/66 Pulse Oximetry 95 Oxygen Delivery Method 09/01/24 09:42 09/01/24 09:45 09/01/24 09:45 Temperature Pulse Rate 82 79 Respiratory Rate 20 19 Blood Pressure 133/68 Pulse Oximetry 96 96 Oxygen Delivery Method 09/01/24 09:48 09/01/24 09:48 09/01/24 09:51 Temperature Pulse Rate 74 74 Respiratory Rate 18 24 Blood Pressure 137/73 Pulse Oximetry 97 97 Oxygen Delivery Method 09/01/24 09:51 09/01/24 09:54 09/01/24 09:54 Temperature Pulse Rate 74 Respiratory Rate 12 Blood Pressure 135/68 150/70 H Pulse Oximetry 97 Oxygen Delivery Method 09/01/24 09:57 09/01/24 09:57 09/01/24 10:00 Temperature Pulse Rate 71 70 Respiratory Rate 18 Blood Pressure 137/66 144/71 H Pulse Oximetry 97 Oxygen Delivery Method 09/01/24 10:00 09/01/24 10:00 09/01/24 10:03 Temperature Pulse Rate 70 Respiratory Rate 17 Blood Pressure 144/71 H 136/73 Pulse Oximetry 97 Oxygen Delivery Method 09/01/24 10:03 09/01/24 10:07 09/01/24 10:07 Temperature Pulse Rate 70 86 Respiratory Rate 24 16 Blood Pressure 117/66 Pulse Oximetry 97 95 Oxygen Delivery Method 09/01/24 10:12 09/01/24 10:12 09/01/24 10:15 Temperature Pulse Rate 81 Respiratory Rate 19 Blood Pressure 121/62 138/67 Pulse Oximetry 96 Oxygen Delivery Method 09/01/24 10:15 09/01/24 10:20 09/01/24 10:20 Temperature Pulse Rate 77 72 Respiratory Rate 18 12 Blood Pressure 136/62 Pulse Oximetry 96 97 Oxygen Delivery Method 09/01/24 10:28 09/01/24 10:30 09/01/24 10:30 Temperature Pulse Rate 69 71 Respiratory Rate 19 Blood Pressure 136/62 151/76 H Pulse Oximetry 98 Oxygen Delivery Method 09/01/24 10:34 09/01/24 10:34 09/01/24 10:36 Temperature Pulse Rate 89 Respiratory Rate 23 Blood Pressure 147/64 H 135/65 Pulse Oximetry 97 Oxygen Delivery Method 09/01/24 10:36 09/01/24 10:39 09/01/24 10:39 Temperature Pulse Rate 87 81 Respiratory Rate 24 18 Blood Pressure 124/64 Pulse Oximetry 97 97 Oxygen Delivery Method 09/01/24 10:43 09/01/24 10:43 09/01/24 10:50 Temperature Pulse Rate 77 71 Respiratory Rate 24 13 Blood Pressure 130/72 Pulse Oximetry 98 98 Oxygen Delivery Method 09/01/24 10:50 09/01/24 11:00 09/01/24 11:00 Temperature Pulse Rate 67 Respiratory Rate 20 Blood Pressure 134/71 141/71 H Pulse Oximetry 97 Oxygen Delivery Method 09/01/24 11:10 09/01/24 11:10 09/01/24 11:20 Temperature Pulse Rate 67 Respiratory Rate 17 Blood Pressure 152/75 H 152/75 H Pulse Oximetry 97 Oxygen Delivery Method 09/01/24 11:20 09/01/24 11:30 09/01/24 11:30 Temperature Pulse Rate 67 65 Respiratory Rate 16 Blood Pressure 160/83 H Pulse Oximetry 97 98 Oxygen Delivery Method MDM - Chest Pain Lab Data 09/01/24 09:20 09/01/24 09:20 Labs: Lab Results 09/01/24 09/01/24 Range/Units 09:20 11:16 WBC 6.0 (4.5-11.0) X10^3/uL RBC 3.94 L (4.5-5.9) X10^6/uL Hgb 9.5 L (13.5-17.5) g/dL Hct 30.8 L (41-53) % MCV 78.2 L (80-100) fL MCH 24.2 L (26-34) PG MCHC 30.9 (30-36) % RDW 18.5 H (11.6-14.8) % Plt Count 244 (150-400) X10^3/uL Neut % (Auto) 72.9 (50-75) % Lymph % (Auto) 18.5 L (25-40) % [place] % (Auto) 7.4 (3-14) % Eos % (Auto) 0.5 L (2-4) % Baso % (Auto) 0.7 (0-2) % Neut # (Auto) 4400 (3550-9846) /uL Lymph # (Auto) 1100 (0094-5486) /uL [place] # (Auto) 400 (0-900) /uL Eos # (Auto) 0 (0-450) /uL Baso # (Auto) 0 (0-100) /uL PT 13.3 H (9.4-12.5) SECONDS INR 1.2 (0.9-1.3) APTT 29 (25.1-36.5) SECONDS Sodium 137 (137-145) mmol/L Potassium 4.3 (3.4-5.1) mmol/L Chloride 106 (98-107) mmol/L Carbon Dioxide 23 (22-32) mmol/L BUN 14 (9-20) mg/dL Creatinine 0.76 (0.66-1.25) mg/dL Estimated GFR > 60 (>60) mL/min BUN/Creatinine Ratio 18.4 (6-22) Glucose 180 H (70-99) mg/dL Calcium 8.7 (8.4-10.2) mg/dL Magnesium 1.5 L (1.6-2.3) mg/dL Total Bilirubin 0.5 (0.2-1.3) mg/dL AST 29 (17-59) IU/L ALT 19 (<50) IU/L Alkaline Phosphatase 92 (38-126) U/L Total Creatine Kinase 45 L (55-170) U/L Troponin I < 0.012 < 0.012 (0.01-0.034) ng/mL NT-Pro-B Natriuret Pep 354 H (<125) pg/mL Total Protein 6.4 (6.3-8.2) g/dL Albumin 3.7 (3.5-5.0) g/dL Globulin 2.7 (1.7-4.1) g/dL Albumin/Globulin Ratio 1.4 (1.0-2.8) Lipase 14 L (23-300) U/L Imaging Data CT scan - chest: Radiologist's Impression: [address] [address] [address] Scan Report Signed Patient: Kristian Yin MR#: [id number] : 1955 Acct:[id number] Age/Sex: 69 / M Date of Service: 09/01/24 Loc: ED Accession Number: [id number] Procedure: CT angio chest PE protocol Ordering Provider: Al Madison D.O. PROCEDURE: CT ANGIO CHEST PE PROTOCOL INDICATIONS: chest pain sob TECHNIQUE: After the administration of intravenous contrast, 2 mm thick sections acquired from the pulmonary apices to the posterior costophrenic angles. 3-dimensional maximum intensity projection (MIP) coronal and sagittal reformats were then acquired through the thorax. For radiation dose reduction, the following was used: automated exposure control, adjustment of mA and/or kV according to patient size. COMPARISON: [facility], CT, CT ANGIO CHEST PE PROTOCOL, 07/01/2024, 14:18. FINDINGS: Image quality: Diagnostic. Pulmonary arteries: Pulmonary arteries are normal in size, and demonstrate no intraluminal filling defects to suggest central pulmonary embolism. Lower Neck: No enlarged lymph nodes. Thyroid: No thyroid nodules which require sonographic follow up, per consensus guidelines. Axillae: No enlarged lymph nodes. Chest Wall: Unremarkable. Bones: Unremarkable. Lungs and Pleura: No pneumothorax or pleural effusions. No consolidation or suspicious nodules. Heart: Heart size is normal. No pericardial effusion. Thoracic Vessels: No aortic aneurysm. Mediastinum and Donna: No enlarged lymph nodes. Esophagus: No wall thickening. [id number] hiatal hernia. Upper Abdomen: Visualized upper abdomen solid organs and bowel loops appear normal. IMPRESSION: No pulmonary embolus. Lungs are clear. ECG Data Interpretation: NSR HR 86 Pr 144 QRS [address]-t wave change Unchanged from 07/01/24 MDM Narrative Medical decision making narrative: Vital signs, nurse triage note, medication list, previous ER visits, and all imaging studies reviewed. Patient given aspirin, nitro x3, morphine 4 mg IV x2, GI cocktail. Heart score 6. Case discussed with Dr. Huertas toe former stitchdowns on- call felt this was noncardiac related no acute intervention at this time. DC home on [place] given that his midsternal chest wall is partially reproducible to to palpation. Will have patient follow up with PCP tomorrow and or Thursday for follow up and to return with new or worsening symptoms. Differential diagnosis includes STEMI NSTEMI unstable angina GERD anxiety aneurysm dissection. Discharge Plan Departure Patient Disposition: Home Clinical Impression: Anterior chest wall pain Instructions: DI for Chest Pain Activity Restrictions/Additional Instructions: Return with new or worsening symptoms. Follow up with PCP tomorrow and or Thursday for re-evaluation. Prescriptions: No Action acetaminophen 325 mg Tablet 650 mg PO Q6H PRN (Reason: Fever/Mild Pain (1-3)) Qty: 50 0RF nitroglycerin [Nitrostat] 0.4 mg Tablet, Sublingual 0.4 mg sublingual [id number] PRN (Reason: Chest Pain) Qty: 30 0RF Patient Comments: months ago metformin 1,000 mg tablet 500 mg PO BID diclofenac sodium 1 % Gel 2.25 inch topical BID Qty: 60 0RF multivitamin Tablet 1 tab PO DAILY olanzapine 20 mg tablet 20 mg PO BEDTIME Patient Comments: take 1 tablet by mouth at bedtime sertraline 100 mg tablet 100 mg PO DAILY amlodipine 5 mg Tablet 5 mg PO DAILY Qty: 30 1RF ferrous sulfate 325 mg (65 mg iron) Tablet 325 mg PO DAILY Qty: 30 1RF Slow-Mag 71.5 mg Tablet,Delayed Release (Dr/Ec) 128 mg PO 1XD Qty: 30 0RF omeprazole 40 mg capsule,delayed release(DR/EC) 40 mg PO BID Qty: 60 0RF Referrals: Shin José PA-C [Primary Care Provider, Medical] Stand Alone Forms: Patient Portal/API
[2024-09-01 09:29] LABS: Add Manual Diff / Slide Review NO; Basophils Absolute Auto 0 /uL (0-100); Basophils Percent Auto 0.7 % (0-2); Eosinophils Absolute Auto 0 /uL (0-450); Eosinophils Percent Auto 0.5 % (2-4); Hematocrit 30.8 % (41-53); Hemoglobin 9.5 g/dL (13.5-17.5); Lymphocytes Absolute Auto 1100 /uL (1100-4500); Lymphocytes Percent Auto 18.5 % (25-40); Mean Corpuscular HGB Conc 30.9 % (30-36); Mean Corpuscular Hemoglobin 24.2 PG (26-34); Mean Corpuscular Volume 78.2 fL (80-100); Monocytes Absolute Auto 400 /uL (0-900); Monocytes Percent Auto 7.4 % (3-14); Neutrophils Absolute Auto 4400 /uL (1500-7000); Neutrophils Percent Auto 72.9 % (50-75); Platelet Count 244 X10^3/uL (150-400); Red Blood Cell Count 3.94 X10^6/uL (4.5-5.9); Red Cell Distribution Width 18.5 % (11.6-14.8)
[2024-09-01] MEDS: ASPIRIN 81 MG CHEW TAB 324 MG PO (09:29)
[2024-09-01] MEDS: NITROGLYCERIN 0.4 MG SL TAB SL ×3 (09:30→10:28)
[2024-09-01 09:44] LABS: INR 1.2 (0.9-1.3); Prothrombin Time 13.3 SECONDS (9.4-12.5)
[2024-09-01 09:47] LABS: Alanine Aminotransferase 19 IU/L (<50); Albumin 3.7 g/dL (3.5-5.0); Albumin Globulin Ratio 1.4 (1.0-2.8); Alkaline Phosphatase 92 U/L (38-126); Aspartate Aminotransferase 29 IU/L (17-59); BUN Creatinine Ratio 18.4 (6-22); Bilirubin Total 0.5 mg/dL (0.2-1.3); Blood Urea Nitrogen 14 mg/dL (9-20); Calcium 8.7 mg/dL (8.4-10.2); Carbon Dioxide 23 mmol/L (22-32); Chloride 106 mmol/L (98-107); Creatine Kinase 45 U/L (55-170); Estimated Glomerular Filt Rate > 60 mL/min (>60); Globulin 2.7 g/dL (1.7-4.1); Glucose 180 mg/dL (70-99); HEMOLYSIS 16 (0-50); Lipase 14 U/L (23-300); Magnesium 1.5 mg/dL (1.6-2.3); PTT Partial Thromboplastin Tim 29 SECONDS (25.1-36.5); Potassium 4.3 mmol/L (3.4-5.1); Sodium 137 mmol/L (137-145); Total Protein 6.4 g/dL (6.3-8.2)
[2024-09-01 09:59] LABS: NT-proBNP (BNP-Adult 18+) 354 pg/mL (<125); Troponin I < 0.012 ng/mL (0.01-0.034)
[2024-09-01] MEDS: MORPHINE 4 MG/ML INJ IV ×2 (10:39→12:24)
--- NOTE | 2024-09-01 11:13 | EKG_ITS ---
[address] [address] Test Date: 2024-09-01 Pat Name: Kristian Yin Department: Room: Gender: Male [employer] Branch: ITZEL : 1955 Requested By: Order Number: [id number] Reading MD: Al Loja MD Measurements Intervals [place] Rate: 64 P: 46 SC: 154 QRS: -57 QRSD: 88 T: 5 QT: 384 QTc: 396 Interpretive Statements Normal sinus rhythm Left anterior fascicular block Electronically Signed On 09-01-2024 11:36:49 PDT by Al Loja MD
[2024-09-01 11:48] LABS: Troponin I < 0.012 ng/mL (0.01-0.034)
--- NOTE | 2024-09-01 12:13 | DI.CT.S_ITS ---
PROCEDURE: CT ANGIO CHEST PE PROTOCOL INDICATIONS: chest pain sob TECHNIQUE: After the administration of intravenous contrast, 2 mm thick sections acquired from the pulmonary apices to the posterior costophrenic angles. 3-dimensional maximum intensity projection (MIP) coronal and sagittal reformats were then acquired through the thorax. For radiation dose reduction, the following was used: automated exposure control, adjustment of mA and/or kV according to patient size. COMPARISON: [facility], CT, CT ANGIO CHEST PE PROTOCOL, 07/01/2024, 14:18. FINDINGS: Image quality: Diagnostic. Pulmonary arteries: Pulmonary arteries are normal in size, and demonstrate no intraluminal filling defects to suggest central pulmonary embolism. Lower Neck: No enlarged lymph nodes. Thyroid: No thyroid nodules which require sonographic follow up, per consensus guidelines. Axillae: No enlarged lymph nodes. Chest Wall: Unremarkable. Bones: Unremarkable. Lungs and Pleura: No pneumothorax or pleural effusions. No consolidation or suspicious nodules. Heart: Heart size is normal. No pericardial effusion. Thoracic Vessels: No aortic aneurysm. Mediastinum and Donna: No enlarged lymph nodes. Esophagus: No wall thickening. [id number] hiatal hernia. Upper Abdomen: Visualized upper abdomen solid organs and bowel loops appear normal. IMPRESSION: No pulmonary embolus. Lungs are clear. Dictated by: Brenda Crabtree M.D. on 09/01/2024 at 13:17 Approved by: Brenda Crabtree M.D. on 09/01/2024 at 13:18
[2024-09-01] MEDS: MAG HYDROX/ALUMINUM/SIMETH SUS 20 ML, LIDOCAINE VISCOUS 2% 15 ML PO (12:24)
== END 2024-09-01 14:05 | disposition home or self-care (01) ==
PROVIDERS: Emergency Provider Family Medicine; PCP Student in an Organized Health Care Education/Training Program
DX: R07.89 Other chest pain (principal); R06.02 Shortness of breath
CPT/HCPCS: 36415; 71045; 71275; 80053; 82550; 83690; 83735; 83880; 84484; 85025; 85610; 85730; 93005; 93010; 96374; 96376; 99284; J2270; Q9967

== ENCOUNTER 2024-09-22 11:02 | Emergency (ER) | payer MEDICARE, OTHER, SELFPAY ==
[2024-04-25 15:23] VITALS: BMI 29.0
[2024-09-22] VITALS (17 sets, daily range): BP systolic 136–199; BP diastolic 77–106; PULSE 84–101; RESP 14–33; TEMP 37.1; O2SAT 98–100; BMI 29.0
--- NOTE | 2024-09-22 11:06 | ED.CHESTPAIN ---
HPI - Chest Pain General Chief Complaint: Chest Pain Stated Complaint: SOB Chest pain Time Seen by Provider: 09/22/24 11:03 History of Present Illness HPI narrative: 69-year-old gentleman history of GERD with gastric ulcer, prior gastric bypass, nonobstructive CAD, hypertension, dyslipidemia, type 2 diabetes, depression, chronic anemia, kidney stone presents with midsternal chest pain radiating to the back this morning 8/10 sharp intermittent pain comes and goes he did not take anything prior to his arrival here. Patient denies fever, chills, body aches, sore throat, cough, nausea, vomiting, diaphoresis. Other than what is stated 14 point review of system is negative. Related Data Home Medications ?Medication ?Instructions ?Recorded ?Confirmed multivitamin 1 tab PO DAILY 09/10/18 07/21/24 olanzapine 20 mg tablet 20 mg PO BEDTIME 12/18/20 07/21/24 metformin 1,000 mg tablet 500 mg PO BID 09/15/23 07/21/24 sertraline 100 mg tablet 100 mg PO DAILY 04/25/24 07/21/24 Previous Rx's ?Medication ?Instructions ?Recorded acetaminophen 325 mg tablet 650 mg (2 x 325 mg) PO Q6H PRN 01/18/23 Fever/Mild Pain (1-3) #50 tabs nitroglycerin 0.4 mg sublingual 0.4 mg sublingual [id number] PRN 01/18/23 tablet (Nitrostat) Chest Pain #30 tabs diclofenac sodium 1 % topical gel 2.25 inch topical BID sternal pain 03/02/24 #60 grams amlodipine 5 mg tablet 5 mg PO DAILY #30 tabs 04/28/24 ferrous sulfate 325 mg (65 mg 325 mg PO DAILY #30 tabs 04/28/24 iron) tablet magnesium chloride 71.5 mg 128 mg (1.7902 x 71.5 mg) PO 1XD 04/28/24 (magnesium chloride) #30 tabs tablet,delayed release (Slow-Mag) omeprazole 40 mg capsule,delayed 40 mg PO BID #60 caps 07/01/24 release amoxicillin 875 mg-potassium 1 tab PO Q12H #14 tabs 09/22/24 clavulanate 125 mg tablet azithromycin 250 mg tablet 250 mg PO DAILY 4 days #4 tabs 09/22/24 (Zithromax) Allergies Allergy/AdvReac Type Severity Reaction Status Date / Time NSAIDS (Non-Steroidal AdvReac Mild CAN TAKE, Verified 09/22/24 11:09 Anti-Inflamma (NSAIDS BUT TRIES (NON-STEROIDAL ANTI-INFLAMMA) TO AVOID R/T GASTRIC BYPASS Review of Systems Review of Systems ROS Unobtainable: All systems reviewed & are unremarkable except as noted in HPI and below Patient History Medical History GERD (gastroesophageal reflux disease) HNP (herniated nucleus pulposus), lumbar History of bleeding ulcers Hypertriglyceridemia Non-insulin dependent type 2 diabetes mellitus HTN (hypertension) Nephrolithiasis Degenerative disc disease Surgical History History of vasectomy History of colonoscopy History of cholecystectomy History of gastric bypass History of cervical spinal surgery Status post lumbar surgery Family History Mother No known health problems Father No known health problems Social History household members: spouse and family alcohol intake: former tobacco type: cigarettes alcohol intake frequency: holidays/special occasions only Exam Narrative Exam Narrative: GENERAL: [69] year old patient appears stated age. Well-developed patient, in mild distress. HEAD: Atraumatic. Normocephalic. EYES: Pupils equal round and reactive. Extraocular motions intact. No scleral icterus. No injection or drainage. ENT: Nose without bleeding, purulent drainage. Throat without erythema, tonsillar hypertrophy or exudate. Airway patent. NECK: Trachea midline. Non tender CARDIOVASCULAR: Regular rate and rhythm without murmurs, gallops, or rubs. RESPIRATORY: Clear to auscultation. Breath sounds equal bilaterally. No wheezes, rales, or rhonchi. GASTROINTESTINAL: Abdomen soft, non-tender, nondistended. EXTREMITIES: No edema or joint tenderness. BACK: Nontender without deformity or crepitance. No flank tenderness. NEURO: AOx3. SKIN: No rash or erythema of visible areas Scores HEART Score Heart Score history: Moderately Suspicious Heart Score EKG: Non-Specific repolarization disturbance Heart Score Age: > or = 65 years old Heart Score risk factors: > 3 risk factors or hx of atherosclerotic disease Heart Score troponin: < or = to normal limit Heart Score Total: 6 MDM - Chest Pain Imaging Data Chest x-ray: Radiologist's Impression: [address] [address] XRay Report Signed Patient: Kristian Yin MR#: [id number] : 1955 Acct:[id number] Age/Sex: 69 / M Date of Service: 09/22/24 Loc: ED Accession Number: [id number] Procedure: XR chest 1V Ordering Provider: Al Madison D.O. PROCEDURE: XR CHEST 1V INDICATIONS: Chest Pain TECHNIQUE: One view of the chest was acquired. COMPARISON: [facility], CR, XR CHEST 1V, 09/01/2024, 8:41. FINDINGS: Surgical changes and devices: Cervical fusion hardware. Lungs and pleura: Lungs are clear. No pleural effusions or pneumothorax. Mediastinum: Mediastinal contours appear normal. Heart size is normal. Bones and chest wall: No suspicious bony lesions. Overlying soft tissues appear unremarkable. IMPRESSION: No acute cardiopulmonary abnormality is seen. CT scan - chest: Radiologist's Impression: [address] [address] [address] Scan Report Signed Patient: Kristian Yin MR#: [id number] : 1955 Acct:[id number] Age/Sex: 69 / M Date of Service: 09/22/24 Loc: ED Accession Number: [id number] Procedure: CT angio chest PE protocol Ordering Provider: Al Madison D.O. PROCEDURE: CT ANGIO CHEST PE PROTOCOL INDICATIONS: chest pain radiating to back TECHNIQUE: After the administration of intravenous contrast, 2 mm thick sections acquired from the pulmonary apices to the posterior costophrenic angles. 3-dimensional maximum intensity projection (MIP) coronal and sagittal reformats were then acquired through the thorax. For radiation dose reduction, the following was used: automated exposure control, adjustment of mA and/or kV according to patient size. COMPARISON: [facility], CT, CT ANGIO CHEST PE PROTOCOL, 09/01/2024, 12:31. FINDINGS: Image quality: Diagnostic. Pulmonary arteries: Pulmonary arteries are normal in size, and demonstrate no intraluminal filling defects to suggest central pulmonary embolism. Lower Neck: No enlarged lymph nodes. Thyroid: No thyroid nodules which require sonographic follow up, per consensus guidelines. Axillae: No enlarged lymph nodes. Chest Wall: Unremarkable. Bones: No aggressive appearing bony lesions. Post ACDF changes are noted in included lower cervical spine. Lungs and Pleura: No pneumothorax or pleural effusions. Subtle airspace opacities are seen scattered in posterior aspect of left lower lobe extending to left hilar region. Similar subtle opacities are also noted in right upper lobe and right lower lobe. Heart: Heart size is enlarged. No pericardial effusion. Thoracic Vessels: No aortic aneurysm. Moderate to severe 3 vessel coronary artery atherosclerotic calcifications are seen. Mediastinum and Donna: No enlarged lymph nodes. Esophagus: No wall thickening. Moderate size hiatal hernia. Upper Abdomen: Postsurgical changes are noted in epigastric region from prior gastric bypass. Gallbladder is surgically absent. IMPRESSION: 1. No pulmonary embolus. No thoracic aortic aneurysm or gross dissection. 2. Subtle opacities seen scattered in right upper lobe, and bilateral lower lobes concerning for scattered small infiltrate/atelectasis. No pleural effusion or pneumothorax. 3. Cardiomegaly, no pericardial effusion. No mediastinal or hilar lymphadenopathy. Moderate to severe 3 vessel coronary artery atherosclerotic calcifications. ECG Data Interpretation: Sinus Rhythm with Sinus Arrythmia HR 99 IA 142 QRS [address]-t wave change Unchanged from 04/25/24 MDM Narrative Medical decision making narrative: All lab work, vital signs, nurse triage note, medication list, previous ER visits, and all imaging studies reviewed. CTA showed no PE no thoracic aortic aneurysm or gross dissection but subtle opacity seen in scattered right upper lobe and bilateral lower lobes concerning for scattered small infiltrate atelectasis. No pleural effusion or pneumothorax. Cardiomegaly no pericardial effusion no mediastinal or hilar lymphadenopathy moderate to severe three-vessel coronary artery atherosclerosis calcification. Heart score 6. Patient given aspirin 324 magnesium 2 g IV and morphine 4 mg IV, augmentin and zithromax here. Differential diagnosis STEMI NSTEMI unstable angina PE dissection aneurysm GERD anxiety pneumothorax. D/c home on augmentin, zpack, and f/u with pcp. Discharge Plan Departure Patient Disposition: Home Clinical Impression: Chest pain, Acute upper back pain, Hypomagnesemia Pneumonia Qualifiers: Pneumonia type: due to Pneumococcus Laterality: bilateral Lung location: lower lobe of lung Qualified Code(s): J13 - Pneumonia due to Streptococcus pneumoniae Instructions: DI for Chest Pain Activity Restrictions/Additional Instructions: Return with new or worsening symptoms. Take your medicines as directed. Follow up PCP in 1-2 weeks if no improvement in symptoms. Prescriptions: New amoxicillin-pot clavulanate 875-125 mg tablet 1 tab PO Q12H Qty: 14 0RF azithromycin [Zithromax] 250 mg tablet 250 mg PO DAILY 4 Days Qty: 4 0RF Rx Instructions: start on day 2 of therapy No Action acetaminophen 325 mg Tablet 650 mg PO Q6H PRN (Reason: Fever/Mild Pain (1-3)) Qty: 50 0RF nitroglycerin [Nitrostat] 0.4 mg Tablet, Sublingual 0.4 mg sublingual [id number] PRN (Reason: Chest Pain) Qty: 30 0RF Patient Comments: months ago metformin 1,000 mg tablet 500 mg PO BID diclofenac sodium 1 % Gel 2.25 inch topical BID Qty: 60 0RF multivitamin Tablet 1 tab PO DAILY olanzapine 20 mg tablet 20 mg PO BEDTIME Patient Comments: take 1 tablet by mouth at bedtime sertraline 100 mg tablet 100 mg PO DAILY amlodipine 5 mg Tablet 5 mg PO DAILY Qty: 30 1RF ferrous sulfate 325 mg (65 mg iron) Tablet 325 mg PO DAILY Qty: 30 1RF Slow-Mag 71.5 mg Tablet,Delayed Release (Dr/Ec) 128 mg PO 1XD Qty: 30 0RF omeprazole 40 mg capsule,delayed release(DR/EC) 40 mg PO BID Qty: 60 0RF Referrals: Shin José PA-C [Primary Care Provider, Medical] Stand Alone Forms: Patient Portal/API
--- NOTE | 2024-09-22 11:09 | DI.RAD.S_ITS ---
PROCEDURE: XR CHEST 1V INDICATIONS: Chest Pain TECHNIQUE: One view of the chest was acquired. COMPARISON: [facility], CR, XR CHEST 1V, 09/01/2024, 8:41. FINDINGS: Surgical changes and devices: Cervical fusion hardware. Lungs and pleura: Lungs are clear. No pleural effusions or pneumothorax. Mediastinum: Mediastinal contours appear normal. Heart size is normal. Bones and chest wall: No suspicious bony lesions. Overlying soft tissues appear unremarkable. IMPRESSION: No acute cardiopulmonary abnormality is seen. Dictated by: Christiano Tidwell M.D. on 09/22/2024 at 11:42 Approved by: Christiano Tidwell M.D. on 09/22/2024 at 11:43
--- NOTE | 2024-09-22 11:09 | EKG_ITS ---
[id number] [place] [address] Test Date: 2024-09-22 Pat Name: Kristian Yin Department: Room: Gender: Male It Coordinator: : 1955 Requested By: Order Number: [id number] Reading MD: Al Loja MD Measurements Intervals [place] Rate: 99 P: 13 MN: 142 QRS: -63 QRSD: 96 T: 85 QT: 336 QTc: 431 Interpretive Statements Sinus rhythm with marked sinus arrhythmia Left anterior fascicular block Left ventricular hypertrophy with repolarization abnormality ( R in aVL ) Electronically Signed On 09-22-2024 14:05:46 PDT by Al Loja MD
--- NOTE | 2024-09-22 11:16 | DI.CT.S_ITS ---
PROCEDURE: CT ANGIO CHEST PE PROTOCOL INDICATIONS: chest pain radiating to back TECHNIQUE: After the administration of intravenous contrast, 2 mm thick sections acquired from the pulmonary apices to the posterior costophrenic angles. 3-dimensional maximum intensity projection (MIP) coronal and sagittal reformats were then acquired through the thorax. For radiation dose reduction, the following was used: automated exposure control, adjustment of mA and/or kV according to patient size. COMPARISON: [facility], CT, CT ANGIO CHEST PE PROTOCOL, 09/01/2024, 12:31. FINDINGS: Image quality: Diagnostic. Pulmonary arteries: Pulmonary arteries are normal in size, and demonstrate no intraluminal filling defects to suggest central pulmonary embolism. Lower Neck: No enlarged lymph nodes. Thyroid: No thyroid nodules which require sonographic follow up, per consensus guidelines. Axillae: No enlarged lymph nodes. Chest Wall: Unremarkable. Bones: No aggressive appearing bony lesions. Post ACDF changes are noted in included lower cervical spine. Lungs and Pleura: No pneumothorax or pleural effusions. Subtle airspace opacities are seen scattered in posterior aspect of left lower lobe extending to left hilar region. Similar subtle opacities are also noted in right upper lobe and right lower lobe. Heart: Heart size is enlarged. No pericardial effusion. Thoracic Vessels: No aortic aneurysm. Moderate to severe 3 vessel coronary artery atherosclerotic calcifications are seen. Mediastinum and Donna: No enlarged lymph nodes. Esophagus: No wall thickening. Moderate size hiatal hernia. Upper Abdomen: Postsurgical changes are noted in epigastric region from prior gastric bypass. Gallbladder is surgically absent. IMPRESSION: 1. No pulmonary embolus. No thoracic aortic aneurysm or gross dissection. 2. Subtle opacities seen scattered in right upper lobe, and bilateral lower lobes concerning for scattered small infiltrate/atelectasis. No pleural effusion or pneumothorax. 3. Cardiomegaly, no pericardial effusion. No mediastinal or hilar lymphadenopathy. Moderate to severe 3 vessel coronary artery atherosclerotic calcifications. Dictated by: Brayan Diaz M.D. on 09/22/2024 at 12:00 Approved by: Brayan Diaz M.D. on 09/22/2024 at 12:14
[2024-09-22 11:24] LABS: Add Manual Diff / Slide Review NO; Hematocrit 33.3 % (41-53); Hemoglobin 10.7 g/dL (13.5-17.5); Lymphocytes Absolute Auto 1700 /uL (1100-4500); Mean Corpuscular HGB Conc 32.2 % (30-36); Mean Corpuscular Hemoglobin 24.9 PG (26-34); Mean Corpuscular Volume 77.4 fL (80-100); Platelet Count 269 X10^3/uL (150-400)
--- NOTE | 2024-09-22 11:24 | PC.NURSE ---
Patient has history of gastric bypass and cannot take NSAIDS.
[2024-09-22 11:31] LABS: INR 1.3 (0.9-1.3); Prothrombin Time 14.2 SECONDS (9.4-12.5)
[2024-09-22 11:34] LABS: PTT Partial Thromboplastin Tim 25 SECONDS (25.1-36.5)
[2024-09-22 11:36] LABS: Alanine Aminotransferase 16 IU/L (<50); Albumin 4.1 g/dL (3.5-5.0); Albumin Globulin Ratio 1.2 (1.0-2.8); Alkaline Phosphatase 117 U/L (38-126); Blood Urea Nitrogen 17 mg/dL (9-20); Calcium 10.1 mg/dL (8.4-10.2); Carbon Dioxide 28 mmol/L (22-32); Chloride 99 mmol/L (98-107); Creatine Kinase 56 U/L (55-170); Estimated Glomerular Filt Rate > 60 mL/min (>60); Globulin 3.5 g/dL (1.7-4.1); Glucose 151 mg/dL (70-99); HEMOLYSIS < 15 (0-50); Lipase 31 U/L (23-300); Magnesium 1.2 mg/dL (1.6-2.3); Potassium 3.4 mmol/L (3.4-5.1); Sodium 137 mmol/L (137-145); Total Protein 7.6 g/dL (6.3-8.2)
[2024-09-22 11:47] LABS: NT-proBNP (BNP-Adult 18+) 343 pg/mL (<125); Troponin I < 0.012 ng/mL (0.01-0.034)
[2024-09-22] MEDS: MAGNESIUM SULFATE 2 GM/50 ML PIGGYBACK IV (11:57)
[2024-09-22 13:55] LABS: Troponin I < 0.012 ng/mL (0.01-0.034)
[2024-09-22] MEDS: MORPHINE 4 MG/ML INJ IV (14:28)
[2024-09-22] MEDS: AMOXICILLIN/CLAV 875/125 MG 1 TAB PO (14:44)
[2024-09-22] MEDS: AZITHROMYCIN 250 MG TABLET PO (14:45)
== END 2024-09-22 14:54 | disposition home or self-care (01) ==
PROVIDERS: Emergency Provider Family Medicine; PCP Student in an Organized Health Care Education/Training Program
DX: J13 Pneumonia due to Streptococcus pneumoniae (principal); M54.6 Pain in thoracic spine; R07.9 Chest pain, unspecified; E83.42 Hypomagnesemia
CPT/HCPCS: 36415; 71045; 71275; 80053; 82550; 83690; 83735; 83880; 84484; 85025; 85610; 85730; 93005; 93010; 96365; 96366; 96375; 99284; J2270; J3475; Q9967

== ENCOUNTER 2024-09-28 20:33 | Emergency (ER) | payer MEDICARE, OTHER, SELFPAY ==
[2024-04-25 15:23] VITALS: BMI 29.0
[2024-09-28 21:20] VITALS: BP 169/95; PULSE 91; RESP 16; TEMP 36.6; O2SAT 99; BMI 29.0
--- NOTE | 2024-09-28 21:24 | EKG_ITS ---
[address] [address] [place] [address] Test Date: 2024-09-28 Pat Name: Kristian Yin Department: [facility] Room: Gender: Male Service Tester: NELSON : 1955 Requested By: Order Number: [id number] Reading MD: Edgar Blanco Measurements Intervals Rud[place] Rate: 91 P: 25 [place]: 148 QRS: -60 QRSD: 100 T: 80 QT: 372 QTc: 457 Interpretive Statements Sinus rhythm with occasional premature ventricular complexes Incomplete right bundle branch block Left anterior fascicular block Left ventricular hypertrophy with repolarization abnormality ( R in aVL ) Electronically Signed On 09-29-2024 18:05:17 PDT by Edgar Blanco
[2024-09-28 22:03] LABS: Add Manual Diff / Slide Review NO; Hematocrit 35.4 % (41-53); Hemoglobin 11.0 g/dL (13.5-17.5); Lymphocytes Absolute Auto 1400 /uL (1100-4500); Mean Corpuscular HGB Conc 31.2 % (30-36); Mean Corpuscular Hemoglobin 24.5 PG (26-34); Mean Corpuscular Volume 78.4 fL (80-100); Platelet Count 326 X10^3/uL (150-400)
[2024-09-28 22:04] LABS: Appearance Urine UA CLEAR; Bilirubin Urine UA NEGATIVE (NEGATIVE); Color Urine UA YELLOW; Glucose Urine UA NEGATIVE (Negative); Ketones Urine UA TRACE (NEGATIVE); Leukocyte Esterase Urine UA NEGATIVE (NEGATIVE); Nitrite Urine UA NEGATIVE (Negative); Occult Blood Urine UA NEGATIVE (Negative); Protein Urine UA 2+ (Negative); Specific Gravity Urine UA >=1.030 (1.000-1.035); Urobilinogen Urine UA 0.2 E.U./dL (0.2); pH Urine UA 5.0 (4.5-8.0)
[2024-09-28 22:17] LABS: Alanine Aminotransferase 14 IU/L (<50); Albumin 4.1 g/dL (3.5-5.0); Albumin Globulin Ratio 1.1 (1.0-2.8); Alkaline Phosphatase 112 U/L (38-126); Blood Urea Nitrogen 20 mg/dL (9-20); Calcium 9.3 mg/dL (8.4-10.2); Carbon Dioxide 23 mmol/L (22-32); Chloride 100 mmol/L (98-107); Estimated Glomerular Filt Rate > 60 mL/min (>60); Globulin 3.7 g/dL (1.7-4.1); Glucose 125 mg/dL (70-99); HEMOLYSIS 23 (0-50); Lipase 67 U/L (23-300); Potassium 3.5 mmol/L (3.4-5.1); Sodium 136 mmol/L (137-145); Total Protein 7.8 g/dL (6.3-8.2)
[2024-09-28 22:19] LABS: Culture Indicated Urine Cult Not Indicated
[2024-09-28 23:27] VITALS: BP 178/93; PULSE 90; RESP 18; O2SAT 100
[2024-09-28 23:30] VITALS: BP 174/96; PULSE 87; O2SAT 100
[2024-09-29] VITALS (14 sets, daily range): BP systolic 150–207; BP diastolic 85–138; PULSE 77–101; O2SAT 82–100
--- NOTE | 2024-09-29 01:11 | DI.CT.S_ITS ---
PROCEDURE: CT ABDOMEN PELVIS W CON INDICATIONS: Lower abdominal pain, worse after eating TECHNIQUE: After the administration of intravenous contrast, axial sections acquired from the lung bases to the pubic symphysis. Coronal and sagittal reformats were performed. For radiation dose reduction, the following was used: automated exposure control, adjustment of mA and/or kV according to patient size. COMPARISON: [facility], CT, CT ANGIO CHEST ABDOMEN PELVIS, 04/25/2024, 12:02. [facility], CT, CT ABDOMEN PELVIS W CON, 09/16/2021, 14:09. FINDINGS: Image quality: Diagnostic. Lower Chest: No significant findings. ABDOMEN: Liver: No solid mass. Gallbladder: Removed . Biliary ducts: No biliary dilation. Pancreas: No ductal dilation. Questionable very minimal appearance of peripancreatic Findings are suggestive of edema. However, developing areas of airspace disease such as atelectasis and/or pneumonia cannot be excluded. Within the proximal body. Spleen: Size is within normal limits. Adrenal Glands: Thickening the left adrenal unchanged. Kidneys and Ureters: No hydronephrosis. 1 cm right inferior pole calcification Hounsfield units measuring 1000 77. This is unchanged. Stomach and Bowel: Normal colonic caliber, without significant wall thickening. Minimal diverticula inflammatory change. Appendix is normal. Peritoneum: No abnormal intraperitoneal fluid. No free air. Ventral Wall: Bowel containing ventral hernia without evidence of incarceration, strangulation proximal obstruction. Abdominal Nodes: No retroperitoneal or mesenteric adenopathy by size criteria. Vessels: Aorta and inferior vena cava are normal in size. PELVIS: Pelvic Organs: Prostate gland is enlarged. Bladder: No bladder wall thickening, accounting for underdistention. Pelvic Nodes: No enlarged lymph nodes. Miscellaneous: Fat containing bilateral inguinal hernias are seen. Calcification is also present in the right hernia. Bones: No aggressive osseous abnormality. L3 through L5 posterior fusion. Multilevel degenerative changes in the. IMPRESSION: Questionable very minimal appearance of peripancreatic edema within the proximal body. Recommend correlation to laboratory values for potential pancreatitis. Bowel containing ventral hernia without incarceration, strangulation or proximal obstruction. Unchanged nonobstructing right renal calculus. Dictated by: Brenda Crabtree M.D. on 09/29/2024 at 1:51 Approved by: Brenda Crabtree M.D. on 09/29/2024 at 1:56
[2024-09-29] MEDS: HYDROMORPHONE 1 MG INJ IV (02:10)
[2024-09-29 02:21] LABS: Magnesium 1.4 mg/dL (1.6-2.3)
[2024-09-29 02:22] LABS: Lactate (Lactic Acid) 1.1 mmol/L (0.7-2.1)
[2024-09-29 02:38] LABS: Procalcitonin 0.078 ng/mL (<0.5)
[2024-09-29 04:18] LABS: Amylase 55 U/L (30-110)
--- NOTE | 2024-09-29 04:48 | ED.ABDPAIN ---
HPI - Abdominal Pain General Chief Complaint: Abdominal Pain Stated Complaint: abd pain Time Seen by Provider: 09/29/24 00:18 Source: patient Mode of arrival: Ambulatory History of Present Illness HPI narrative: 69-year-old man comes to the ER because of lower abdominal pain which is intermittent but has been worsening over the last week. He denies any nausea, vomiting, diarrhea, constipation. He denies any fever, chills, sweats. She denies any chest pain, palpitations, diaphoresis, shortness of breath. He denies any penile discharge, urgency, frequency, flank pain, hematuria, hesitancy or any other irritative voiding symptoms he has no other concerns or complaints at this time. Related Data Home Medications ?Medication ?Instructions ?Recorded ?Confirmed multivitamin 1 tab PO DAILY 09/10/18 07/21/24 olanzapine 20 mg tablet 20 mg PO BEDTIME 12/18/20 07/21/24 metformin 1,000 mg tablet 500 mg PO BID 09/15/23 07/21/24 sertraline 100 mg tablet 100 mg PO DAILY 04/25/24 07/21/24 Previous Rx's ?Medication ?Instructions ?Recorded acetaminophen 325 mg tablet 650 mg (2 x 325 mg) PO Q6H PRN 01/18/23 Fever/Mild Pain (1-3) #50 tabs nitroglycerin 0.4 mg sublingual 0.4 mg sublingual [id number] PRN 01/18/23 tablet (Nitrostat) Chest Pain #30 tabs diclofenac sodium 1 % topical gel 2.25 inch topical BID sternal pain 03/02/24 #60 grams amlodipine 5 mg tablet 5 mg PO DAILY #30 tabs 04/28/24 ferrous sulfate 325 mg (65 mg 325 mg PO DAILY #30 tabs 04/28/24 iron) tablet magnesium chloride 71.5 mg 128 mg (1.7902 x 71.5 mg) PO 1XD 04/28/24 (magnesium chloride) #30 tabs tablet,delayed release (Slow-Mag) omeprazole 40 mg capsule,delayed 40 mg PO BID #60 caps 07/01/24 release amoxicillin 875 mg-potassium 1 tab PO Q12H #14 tabs 09/22/24 clavulanate 125 mg tablet hydrocodone 5 mg-acetaminophen 325 1 tab PO Q4-6H PRN pain #12 tabs 07/17/25 mg tablet Allergies Allergy/AdvReac Type Severity Reaction Status Date / Time NSAIDS (Non-Steroidal AdvReac Mild CAN TAKE, Verified 09/28/24 21:20 Anti-Inflamma (NSAIDS BUT TRIES (NON-STEROIDAL ANTI-INFLAMMA) TO AVOID R/T GASTRIC BYPASS Patient History Medical History GERD (gastroesophageal reflux disease) HNP (herniated nucleus pulposus), lumbar History of bleeding ulcers Hypertriglyceridemia Non-insulin dependent type 2 diabetes mellitus HTN (hypertension) Nephrolithiasis Degenerative disc disease Surgical History History of vasectomy History of colonoscopy History of cholecystectomy History of gastric bypass History of cervical spinal surgery Status post lumbar surgery Family History Mother No known health problems Father No known health problems Social History household members: spouse and family alcohol intake: former Smoking Status: Former smoker tobacco type: cigarettes alcohol intake frequency: holidays/special occasions only Exam Initial Vital Signs Initial Vital Signs: Vital Signs Temperature 97.8 F 09/28/24 21:20 Pulse Rate 91 H 09/28/24 21:20 Respiratory Rate 16 09/28/24 21:20 Blood Pressure 169/95 H 09/28/24 21:20 Pulse Oximetry 99 09/28/24 21:20 Oxygen Delivery Method Room Air 09/28/24 21:20 Const General: cooperative, No acute distress and No ill appearing HENMT Head: normocephalic and atraumatic Eyes Pupils: PERRL EOM: EOM intact bilaterally Neck Neck: No tender Resp Effort & Inspection: normal respiratory effort and no respiratory distress Auscultation: clear to auscultation bilaterally Cardio Rate: regular rate Rhythm: regular rhythm Heart Sounds: S1 normal and S2 normal GI Palpation: soft and tender (suprapubic tenderness) Auscultation: normal bowel sounds General: No CVA tenderness Back/Spine/Pelvis Back: No back tenderness Skin General: no rashes or lesions noted Neuro General: patient alert, patient awake, patient oriented x3, normal light touch, pain and propioception, no focal motor deficits and CN's II-XI intact bilaterally Course Course Course Narrative: Patient seen and examined by myself once he was roomed in the ER. Since his pain was so severe he was given pain medicine and labs and imaging was ordered. CT did not show any acute findings to explain the patient's pain. Neither did any of the labs or urinalysis. Therefore, I reassured the patient that there is nothing acute or dangerous causing his pain at least that can be discerned on our diagnostic testing and evaluation at this time. I advised him to return to the ER for any change or worsening in his condition especially worsening or out of control abdominal pain or abdominal pain accompanied by fevers or any other concerns. Otherwise, I advised him to call his PCP in the morning and arrange an appointment to be re-evaluated by them as soon as possible. He was in agreement with this plan. Orders Ordered: ED Orders 09/28/24 21:24 EKG-12 Lead Stat 09/28/24 21:30 Urinalysis and Microscopic Stat 09/28/24 21:52 Complete Blood Count AUTO DIFF Stat Comprehensive Metabolic Panel Stat Lipase Stat 09/29/24 01:10 Amylase Stat Lactate (Lactic Acid) Stat MAG [Magnesium] Stat Procalcitonin Stat 09/29/24 01:11 CT abdomen pelvis w con Stat 09/29/24 02:15 Blood Culture Stat Discontinued Medications Hydromorphone HCl (Hydromorphone 1 Mg Inj) 1 mg IV NOW ONE Stop: 09/29/24 01:15 Last Admin: 09/29/24 02:10 Dose: 1 mg Documented By: SHIVA Hydromorphone HCl (Hydromorphone Hcl 0.5 Mg/0.5 Ml Syringe) 0.5 mg IV NOW ONE Stop: 09/29/24 03:51 Last Admin: 09/29/24 04:14 Dose: 0.5 mg Documented By: SHIVA Ondansetron HCl (Ondansetron 4 Mg/2 Ml Inj) 4 mg IV NOW PRN PRN Reason: Nausea And Vomiting Ondansetron HCl (Ondansetron 4 Mg Odt) 4 mg PO NOW PRN PRN Reason: Nausea And Vomiting Vital Signs Vital signs: Vital Signs - 8 hr 09/28/24 21:20 09/28/24 23:27 09/28/24 23:27 Temperature 97.8 F Pulse Rate 91 H 90 Respiratory Rate 16 18 Blood Pressure 169/95 H 178/93 H Pulse Oximetry 99 100 Oxygen Delivery Method Room Air 09/28/24 23:30 09/28/24 23:30 09/29/24 00:00 Temperature Pulse Rate 87 77 Respiratory Rate Blood Pressure 174/96 H Pulse Oximetry 100 99 Oxygen Delivery Method 09/29/24 00:01 09/29/24 00:01 09/29/24 00:19 Temperature Pulse Rate 77 Respiratory Rate Blood Pressure 192/138 H 171/88 H Pulse Oximetry 100 Oxygen Delivery Method 09/29/24 00:19 09/29/24 00:30 09/29/24 00:30 Temperature Pulse Rate 90 95 H Respiratory Rate Blood Pressure 166/88 H Pulse Oximetry 99 99 Oxygen Delivery Method 09/29/24 01:00 09/29/24 01:00 09/29/24 01:39 Temperature Pulse Rate 80 85 Respiratory Rate Blood Pressure 150/88 H Pulse Oximetry 98 82 L Oxygen Delivery Method 09/29/24 01:40 09/29/24 01:40 09/29/24 02:04 Temperature Pulse Rate 85 93 H Respiratory Rate Blood Pressure 207/100 H Pulse Oximetry 95 92 Oxygen Delivery Method 09/29/24 02:13 09/29/24 02:13 09/29/24 02:30 Temperature Pulse Rate 88 Respiratory Rate Blood Pressure 175/94 H 177/88 H Pulse Oximetry 100 Oxygen Delivery Method 09/29/24 02:30 09/29/24 02:53 09/29/24 02:53 Temperature Pulse Rate 89 101 H Respiratory Rate Blood Pressure 152/85 H Pulse Oximetry 99 99 Oxygen Delivery Method 09/29/24 03:00 09/29/24 03:00 09/29/24 03:30 Temperature Pulse Rate 88 85 Respiratory Rate Blood Pressure 168/93 H Pulse Oximetry 98 99 Oxygen Delivery Method 09/29/24 03:30 09/29/24 04:00 09/29/24 04:00 Temperature Pulse Rate 90 Respiratory Rate Blood Pressure 175/90 H 176/90 H Pulse Oximetry 99 Oxygen Delivery Method MDM - Abdominal Pain Differential Diagnosis Differential diagnosis: Likely abdominal pain, acute appendicitis, calculus of kidney, constipation, diverticulitis, endometriosis, gastroenteritis, pancreatitis and small bowel obstruction Lab Data 09/28/24 21:52 09/28/24 21:52 Labs: Lab Results 09/28/24 09/28/24 09/29/24 Range/Units 21:30 21:52 01:10 WBC 12.4 H (4.5-11.0) X10^3/uL RBC 4.52 (4.5-5.9) X10^6/uL Hgb 11.0 L (13.5-17.5) g/dL Hct 35.4 L (41-53) % MCV 78.4 L (80-100) fL MCH 24.5 L (26-34) PG MCHC 31.2 (30-36) % RDW 17.5 H (11.6-14.8) % Plt Count 326 (150-400) X10^3/uL Neut % (Auto) 80.3 H (50-75) % Lymph % (Auto) 11.7 L (25-40) % [place] % (Auto) 6.5 (3-14) % Eos % (Auto) 1.2 L (2-4) % Baso % (Auto) 0.3 (0-2) % Neut # (Auto) 9900 H (9245-8218) /uL Lymph # (Auto) 1400 (7070-6424) /uL [place] # (Auto) 800 (0-900) /uL Eos # (Auto) 200 (0-450) /uL Baso # (Auto) 0 (0-100) /uL Sodium 136 L (137-145) mmol/L Potassium 3.5 (3.4-5.1) mmol/L Chloride 100 (98-107) mmol/L Carbon Dioxide 23 (22-32) mmol/L BUN 20 (9-20) mg/dL Creatinine 1.07 (0.66-1.25) mg/dL Estimated GFR > 60 (>60) mL/min BUN/Creatinine Ratio 18.7 (6-22) Glucose 125 H (70-99) mg/dL Lactate 1.1 (0.7-2.1) mmol/L Calcium 9.3 (8.4-10.2) mg/dL Magnesium 1.4 L (1.6-2.3) mg/dL Total Bilirubin 0.5 (0.2-1.3) mg/dL AST 30 (17-59) IU/L ALT 14 (<50) IU/L Alkaline Phosphatase 112 (38-126) U/L Total Protein 7.8 (6.3-8.2) g/dL Albumin 4.1 (3.5-5.0) g/dL Globulin 3.7 (1.7-4.1) g/dL Albumin/Globulin Ratio 1.1 (1.0-2.8) Amylase 55 (30-110) U/L Lipase 67 D (23-300) U/L Procalcitonin 0.078 (<0.5) ng/mL Urine Color Yellow Urine Appearance Clear Urine pH 5.0 (4.5-8.0) Ur Specific [place] >=1.030 H (1.000-1.035) Urine Protein 2+ H (Negative) Urine Glucose (UA) Negative (Negative) g/dL Urine Ketones Trace H (NEGATIVE) Urine Occult Blood Negative (Negative) Urine Nitrate Negative (Negative) Urine Bilirubin Negative (NEGATIVE) Urine Urobilinogen 0.2 (0.2) E.U./dL Ur Leukocyte Esterase Negative (NEGATIVE) Urine RBC None seen (0-5/HPF) Urine WBC None seen (0-5/HPF) Ur Squamous Epith Cells 1-5 /hpf (0-5/HPF) Urine Bacteria None seen (None) Urine Mucus 2+ H (Negative) Ur Culture Indicated? Cult not indicated Vol Urine Centrifuged 10ml (spun) Point of care testing: Urine Dip Bedside Urine Glucose Negative Bedside Urine Bilirubin - Negative Bedside Urine Ketone + 15 Urine Specific [place] 1.030 Bedside Urine Occult Blood - Negative Bedside Urine pH 5.5 Bedside Urine Protein + 30 Bedside Urine Urobilinogen - Negative Bedside Urine Nitrite - Negative Bedside Urine Leukocytes - Negative Esterase ECG Data Interpretation: Sinus rhythm with PVCs. Rate 91. Discharge Plan Departure Patient Disposition: Home Clinical Impression: Abdominal pain Qualifiers: Abdominal location: lower abdomen, unspecified Qualified Code(s): R10.30 - Lower abdominal pain, unspecified Instructions: DI for Abdominal Pain-Adult Activity Restrictions/Additional Instructions: There is the change or worsening in your condition especially worsening or [id number] pain, or pain accompanied by fevers chills sweats nausea or vomiting or diarrhea or if you have blood in your stool or vomit then please return to the ER immediately for further evaluation. Otherwise, please follow up with your PCP as soon as possible for re-evaluation. Prescriptions: New hydrocodone-acetaminophen 5-325 mg tablet 1 tab PO Q4-6H PRN (Reason: pain) Qty: 12 0RF No Action acetaminophen 325 mg Tablet 650 mg PO Q6H PRN (Reason: Fever/Mild Pain (1-3)) Qty: 50 0RF nitroglycerin [Nitrostat] 0.4 mg Tablet, Sublingual 0.4 mg sublingual [id number] PRN (Reason: Chest Pain) Qty: 30 0RF Patient Comments: months ago metformin 1,000 mg tablet 500 mg PO BID diclofenac sodium 1 % Gel 2.25 inch topical BID Qty: 60 0RF multivitamin Tablet 1 tab PO DAILY olanzapine 20 mg tablet 20 mg PO BEDTIME Patient Comments: take 1 tablet by mouth at bedtime sertraline 100 mg tablet 100 mg PO DAILY amlodipine 5 mg Tablet 5 mg PO DAILY Qty: 30 1RF ferrous sulfate 325 mg (65 mg iron) Tablet 325 mg PO DAILY Qty: 30 1RF Slow-Mag 71.5 mg Tablet,Delayed Release (Dr/Ec) 128 mg PO 1XD Qty: 30 0RF omeprazole 40 mg capsule,delayed release(DR/EC) 40 mg PO BID Qty: 60 0RF amoxicillin-pot clavulanate 875-125 mg tablet 1 tab PO Q12H Qty: 14 0RF Referrals: Shin José PA-C [Primary Care Provider, Medical] - As soon as possible Stand Alone Forms: Patient Portal/API
== END 2024-09-29 04:30 | disposition home or self-care (01) ==
PROVIDERS: Emergency Provider Emergency Medicine; PCP Student in an Organized Health Care Education/Training Program
DX: R10.30 Lower abdominal pain, unspecified (principal)
CPT/HCPCS: 36415; 74177; 80053; 81001; 81003; 82150; 83605; 83690; 83735; 84145; 85025; 87040; 93005; 96374; 96376; 99284; J1171; Q9967

== ENCOUNTER 2024-10-02 09:25 | Emergency (ER) | payer MEDICARE, OTHER, SELFPAY ==
[2024-04-25 15:23] VITALS: BMI 29.0
[2024-10-02] VITALS (17 sets, daily range): BP systolic 107–175; BP diastolic 54–100; PULSE 72–104; RESP 11–21; TEMP 37.1; O2SAT 96–100; BMI 25.8
--- NOTE | 2024-10-02 09:30 | DI.RAD.S_ITS ---
PROCEDURE: XR CHEST 1V INDICATIONS: Chest Pain TECHNIQUE: One view of the chest was acquired. COMPARISON: [facility], CR, XR CHEST 1V, 09/22/2024, 11:08. [facility], CR, XR CHEST 1V, 09/01/2024, 8:41. FINDINGS: Surgical changes and devices: 09/22/2024, 09/01/2024 Lungs and pleura: Lungs are clear. No pleural effusions or pneumothorax. Mediastinum: Mediastinal contours appear normal. Heart size is normal. Bones and chest wall: No suspicious bony lesions. Overlying soft tissues appear unremarkable. IMPRESSION: No acute cardiopulmonary abnormality is seen. Dictated by: Isela Gomez M.D. on 10/02/2024 at 9:39 Approved by: Isela Gomez M.D. on 10/02/2024 at 9:40
[2024-10-02] MEDS: ASPIRIN 81 MG CHEW TAB 324 MG PO (09:33)
--- NOTE | 2024-10-02 09:35 | EKG_ITS ---
[address] [address] Test Date: 2024-10-02 Pat Name: Kristian Yin Department: Room: Gender: Male Hed[place] Coordinator: : 1955 Requested By: Order Number: [id number] Reading MD: Edgar Blanco Measurements Intervals [place] Rate: 94 P: OR: 130 QRS: -60 QRSD: 100 T: 85 QT: 358 QTc: 447 Interpretive Statements Normal sinus rhythm Incomplete right bundle branch block Left anterior fascicular block Left ventricular hypertrophy with repolarization abnormality ( R in aVL ) Electronically Signed On 10-03-2024 8:41:12 PDT by Edgar Blanco
[2024-10-02] MEDS: NITROGLYCERIN 0.4 MG SL TAB SL (09:37)
[2024-10-02 09:49] LABS: Add Manual Diff / Slide Review NO; Hematocrit 36.8 % (41-53); Hemoglobin 11.6 g/dL (13.5-17.5); Lymphocytes Absolute Auto 1300 /uL (1100-4500); Mean Corpuscular HGB Conc 31.4 % (30-36); Mean Corpuscular Hemoglobin 24.6 PG (26-34); Mean Corpuscular Volume 78.4 fL (80-100); Platelet Count 354 X10^3/uL (150-400)
--- NOTE | 2024-10-02 09:49 | PC.NURSE ---
Patient received first dose of nitroglyerin without any noted pain relief. Patient blood pressure dropped dramatically and provider asked no further nitro be given.
[2024-10-02] MEDS: MORPHINE 2 MG/ML INJ IV ×2 (09:56→12:10)
--- NOTE | 2024-10-02 09:56 | ED.CHESTPAIN ---
HPI - Chest Pain General Chief Complaint: Chest Pain Stated Complaint: Chest pain (started 6am); SOB Time Seen by Provider: 10/02/24 09:26 Source: patient and family Mode of arrival: Ambulatory Limitations: no limitations History of Present Illness HPI narrative: 69-year-old gentleman history of GERD with gastric ulcer, prior gastric bypass, nonobstructive CAD, hypertension, dyslipidemia, type 2 diabetes, depression, chronic anemia, kidney stone presents with midsternal chest pain radiating to the back this morning 8/10 sharp intermittent pain comes and goes he did not take anything prior to his arrival here. Patient denies fever, chills, body aches, sore throat, cough, nausea, vomiting, diaphoresis. Other than what is stated 14 point review of system is negative. Patient is prescribed some nitroglycerin to be used at home for chest pain but did not use any prior to arrival. Patient had similar symptoms 10 days ago and was seen here in the ER where he had a negative workup and was sent home. Related Data Home Medications ?Medication ?Instructions ?Recorded ?Confirmed multivitamin 1 tab PO DAILY 09/10/18 07/21/24 olanzapine 20 mg tablet 20 mg PO BEDTIME 12/18/20 07/21/24 metformin 1,000 mg tablet 500 mg PO BID 09/15/23 07/21/24 sertraline 100 mg tablet 100 mg PO DAILY 04/25/24 07/21/24 Previous Rx's ?Medication ?Instructions ?Recorded acetaminophen 325 mg tablet 650 mg (2 x 325 mg) PO Q6H PRN 01/18/23 Fever/Mild Pain (1-3) #50 tabs nitroglycerin 0.4 mg sublingual 0.4 mg sublingual [id number] PRN 01/18/23 tablet (Nitrostat) Chest Pain #30 tabs diclofenac sodium 1 % topical gel 2.25 inch topical BID sternal pain 03/02/24 #60 grams amlodipine 5 mg tablet 5 mg PO DAILY #30 tabs 04/28/24 ferrous sulfate 325 mg (65 mg 325 mg PO DAILY #30 tabs 04/28/24 iron) tablet magnesium chloride 71.5 mg 128 mg (1.7902 x 71.5 mg) PO 1XD 04/28/24 (magnesium chloride) #30 tabs tablet,delayed release (Slow-Mag) omeprazole 40 mg capsule,delayed 40 mg PO BID #60 caps 07/01/24 release amoxicillin 875 mg-potassium 1 tab PO Q12H #14 tabs 09/22/24 clavulanate 125 mg tablet hydrocodone 5 mg-acetaminophen 325 1 tab PO Q4-6H PRN pain #12 tabs 09/29/24 mg tablet Allergies Allergy/AdvReac Type Severity Reaction Status Date / Time NSAIDS (Non-Steroidal AdvReac Mild CAN TAKE, Verified 10/02/24 09:34 Anti-Inflamma (NSAIDS BUT TRIES (NON-STEROIDAL ANTI-INFLAMMA) TO AVOID R/T GASTRIC BYPASS Review of Systems Review of Systems ROS Unobtainable: All systems reviewed & are unremarkable except as noted in HPI and below Patient History Medical History GERD (gastroesophageal reflux disease) HNP (herniated nucleus pulposus), lumbar History of bleeding ulcers Hypertriglyceridemia Non-insulin dependent type 2 diabetes mellitus HTN (hypertension) Nephrolithiasis Degenerative disc disease Surgical History History of vasectomy History of colonoscopy History of cholecystectomy History of gastric bypass History of cervical spinal surgery Status post lumbar surgery Family History Mother No known health problems Father No known health problems Social History household members: spouse and family Smoking Status: Former smoker alcohol intake: former Smoking Status: Former smoker tobacco type: cigarettes alcohol intake frequency: holidays/special occasions only Exam Narrative Exam Narrative: General: Patient appears to be in no acute distress, acting appropriately , looks anemic Head: normocephalic, atraumatic, HEENT: Pupils equal round reactive, eyes tracking well, neck supple, no JVD Heart: regular rate and rhythm, no murmurs, rubs, or gallops heard Lungs: clear to auscultation, no adventitious sounds Abdomen: soft , nontender, nondistended, positive bowel sounds Neurological: no focal neurological signs, moving all extremities well, alert and oriented x3, Psych: good judgment ,good insight, mood is normal. Initial Vital Signs Initial Vital Signs: Vital Signs Pulse Rate 95 H 10/02/24 09:31 Respiratory Rate 12 10/02/24 09:31 Blood Pressure 170/100 H 10/02/24 09:31 Pulse Oximetry 96 10/02/24 09:31 Course Course Course Narrative: According to patient's partner, there is a potential opioid abuse of using more Vicodin than how it is prescribed at times. We will still do a workup for chest pain including labs, imaging and a CTA of the chest due to his complaints of midsternal chest pain radiating to his back. Orders Ordered: ED Orders 10/02/24 09:30 XR chest 1V Stat EKG-12 Lead Stat 10/02/24 09:40 Complete Blood Count AUTO DIFF Stat Comprehensive Metabolic Panel Stat Lipase Stat Magnesium Stat NT-proBNP (BNP-Adult 18+) Stat PTT Partial Thromboplastin Neo Stat Prothrombin Time INR Stat Troponin & CK Cardiac Panel Stat 10/02/24 09:57 CT angio chest PE protocol Stat 10/02/24 11:27 Trop I [Troponin I] Stat 10/02/24 11:40 EKG-12 Lead Stat Discontinued Medications Aspirin (Aspirin 81 Mg Chew Tab) 324 mg PO NOW ONE Stop: 10/02/24 09:30 Last Admin: 10/02/24 09:33 Dose: 324 mg Documented By: ROYER Magnesium Sulfate (Magnesium Sulfate) 2 gm in 50 mls @ 150 mls/hr IV NOW ONE Stop: 10/02/24 10:44 Last Infusion: 10/02/24 11:12 Dose: Infused Documented By: ROYER Co-signed By: ALONA Admin: 10/02/24 10:40 Dose: 150 mls/hr Documented By: ALONA Co-signed By: ROYER Morphine Sulfate (Morphine 2 Mg/Ml Inj) 2 mg IV NOW ONE Stop: 10/02/24 09:53 Last Admin: 10/02/24 09:56 Dose: 2 mg Documented By: ALONA Morphine Sulfate (Morphine 2 Mg/Ml Inj) 2 mg IV Q2HR PRN PRN Reason: Pain, Moderate (4-6) Last Admin: 10/02/24 12:10 Dose: 2 mg Documented By: ALONA Nitroglycerin (Nitroglycerin 0.4 Mg Sl Tab) 0.4 mg SL [id number] PRN PRN Reason: Chest Pain Last Admin: 10/02/24 09:37 Dose: 0.4 mg Documented By: ROYER Reevaluation(s) Reevaluation #1: Upon his 2nd round of morphine 2 mg IV, his chest pain did improve some. Patient is eager to be discharged. His CTA of the chest, chest x-ray, 2 sets of troponin were negative. Patient's magnesium was replaced and was advised that he may need to go on chronic magnesium. Vital Signs Vital signs: Vital Signs - 8 hr 10/02/24 09:31 10/02/24 09:31 10/02/24 09:34 Temperature 98.7 F Pulse Rate 95 H 93 H Respiratory Rate 12 18 Blood Pressure 170/100 H 170/100 H Pulse Oximetry 96 99 Oxygen Delivery Method Room Air Oxygen Flow Rate 10/02/24 09:37 10/02/24 09:41 10/02/24 09:41 Temperature Pulse Rate 93 H 104 H Respiratory Rate 19 Blood Pressure 170/100 H 107/54 L Pulse Oximetry 99 97 Oxygen Delivery Method Nasal Cannula Oxygen Flow Rate 2 10/02/24 09:47 10/02/24 09:47 10/02/24 09:50 Temperature Pulse Rate 102 H 97 H Respiratory Rate 19 21 Blood Pressure 125/68 Pulse Oximetry 98 100 Oxygen Delivery Method Nasal Cannula Oxygen Flow Rate 2 10/02/24 09:50 10/02/24 09:55 10/02/24 09:55 Temperature Pulse Rate 94 H Respiratory Rate 11 L Blood Pressure 132/86 152/88 H Pulse Oximetry 100 Oxygen Delivery Method Oxygen Flow Rate 2 10/02/24 10:00 10/02/24 10:00 10/02/24 10:05 Temperature Pulse Rate 94 H 92 H Respiratory Rate 16 17 Blood Pressure 125/86 Pulse Oximetry 100 100 Oxygen Delivery Method Nasal Cannula Oxygen Flow Rate 2 10/02/24 10:06 10/02/24 10:30 10/02/24 11:00 Temperature Pulse Rate 77 78 Respiratory Rate 15 12 Blood Pressure 136/86 Pulse Oximetry 100 100 Oxygen Delivery Method Oxygen Flow Rate 10/02/24 11:30 10/02/24 11:35 10/02/24 11:35 Temperature Pulse Rate 74 72 Respiratory Rate 13 15 Blood Pressure 147/82 H Pulse Oximetry 100 100 Oxygen Delivery Method Nasal Cannula Oxygen Flow Rate 2 10/02/24 12:00 10/02/24 12:00 10/02/24 12:30 Temperature Pulse Rate 73 73 Respiratory Rate 12 12 Blood Pressure 154/83 H Pulse Oximetry 100 100 Oxygen Delivery Method Oxygen Flow Rate 10/02/24 12:30 10/02/24 13:00 10/02/24 13:00 Temperature Pulse Rate 80 Respiratory Rate 12 Blood Pressure 175/84 H 163/91 H Pulse Oximetry 100 Oxygen Delivery Method Oxygen Flow Rate MDM - Chest Pain Differential Diagnosis Differential diagnosis: Likely stable angina, unstable angina pectoris, atypical chest pain, st elevation myocardial infarction, costochondritis and chest pain Condition is:: Improved Lab Data 10/02/24 09:40 10/02/24 09:40 Labs: Lab Results 10/02/24 10/02/24 Range/Units 09:40 11:27 WBC 10.1 (4.5-11.0) X10^3/uL RBC 4.69 (4.5-5.9) X10^6/uL Hgb 11.6 L (13.5-17.5) g/dL Hct 36.8 L (41-53) % MCV 78.4 L (80-100) fL MCH 24.6 L (26-34) PG MCHC 31.4 (30-36) % RDW 18.1 H (11.6-14.8) % Plt Count 354 (150-400) X10^3/uL Neut % (Auto) 82.2 H (50-75) % Lymph % (Auto) 13.0 L (25-40) % [place] % (Auto) 3.9 (3-14) % Eos % (Auto) 0.6 L (2-4) % Baso % (Auto) 0.3 (0-2) % Neut # (Auto) 8300 H (5128-7594) /uL Lymph # (Auto) 1300 (9947-5127) /uL [place] # (Auto) 400 (0-900) /uL Eos # (Auto) 100 (0-450) /uL Baso # (Auto) 0 (0-100) /uL PT 13.2 H (9.4-12.5) SECONDS INR 1.2 (0.9-1.3) APTT 27 (25.1-36.5) SECONDS Sodium 138 (137-145) mmol/L Potassium 4.0 (3.4-5.1) mmol/L Chloride 100 (98-107) mmol/L Carbon Dioxide 23 (22-32) mmol/L BUN 12 (9-20) mg/dL Creatinine 0.74 (0.66-1.25) mg/dL Estimated GFR > 60 (>60) mL/min BUN/Creatinine Ratio 16.2 (6-22) Glucose 126 H (70-99) mg/dL Calcium 9.9 (8.4-10.2) mg/dL Magnesium 1.4 L (1.6-2.3) mg/dL Total Bilirubin 0.9 (0.2-1.3) mg/dL AST 36 (17-59) IU/L ALT 13 (<50) IU/L Alkaline Phosphatase 96 (38-126) U/L Total Creatine Kinase 38 L (55-170) U/L Troponin I < 0.012 < 0.012 (0.01-0.034) ng/mL NT-Pro-B Natriuret Pep 442 H (<125) pg/mL Total Protein 8.3 H (6.3-8.2) g/dL Albumin 4.4 (3.5-5.0) g/dL Globulin 3.9 (1.7-4.1) g/dL Albumin/Globulin Ratio 1.1 (1.0-2.8) Lipase 29 D (23-300) U/L ECG Data Interpretation: EKG shows a left axis, normal sinus rhythm with incomplete right bundle branch block, left anterior fascicular block, normal NV intervals, no STT wave changes. EKG from September 28, 2024 is the same and unchanged. MDM Narrative Medical decision making narrative: Considering the patient's entire workup is negative including 2 sets of troponins, a CTA of his chest, chest x-ray and his pain has improved, I felt safe discharging the patient to follow up with his account classification clerk for further cardiac workup. Considering the patient has been here for similar symptoms recently and is on chronic opioids., there could be a potential opioid dependence as well. Patient's magnesium was replaced and may need to go on chronic magnesium the future. Discharge Plan Departure Patient Disposition: Home Clinical Impression: Atypical chest pain, Hypomagnesemia Anemia Qualifiers: Anemia type: unspecified type Qualified Code(s): D64.9 - Anemia, unspecified Instructions: Anemia, DI for Atypical Chest Pain Activity Restrictions/Additional Instructions: Stay on medications as prescribed. Continue on iron tablets as prescribed. May need to go on magnesium daily. Follow up with PCP for recheck on labs in the next week or 2. Follow-up with account classification clerk as planned for more outpatient cardiac testing. Can come back to ER for worsening shortness of breath or chest pain. Prescriptions: No Action acetaminophen 325 mg Tablet 650 mg PO Q6H PRN (Reason: Fever/Mild Pain (1-3)) Qty: 50 0RF nitroglycerin [Nitrostat] 0.4 mg Tablet, Sublingual 0.4 mg sublingual [id number] PRN (Reason: Chest Pain) Qty: 30 0RF Patient Comments: months ago metformin 1,000 mg tablet 500 mg PO BID diclofenac sodium 1 % Gel 2.25 inch topical BID Qty: 60 0RF hydrocodone-acetaminophen 5-325 mg tablet 1 tab PO Q4-6H PRN (Reason: pain) Qty: 12 0RF multivitamin Tablet 1 tab PO DAILY olanzapine 20 mg tablet 20 mg PO BEDTIME Patient Comments: take 1 tablet by mouth at bedtime sertraline 100 mg tablet 100 mg PO DAILY amlodipine 5 mg Tablet 5 mg PO DAILY Qty: 30 1RF ferrous sulfate 325 mg (65 mg iron) Tablet 325 mg PO DAILY Qty: 30 1RF Slow-Mag 71.5 mg Tablet,Delayed Release (Dr/Ec) 128 mg PO 1XD Qty: 30 0RF omeprazole 40 mg capsule,delayed release(DR/EC) 40 mg PO BID Qty: 60 0RF amoxicillin-pot clavulanate 875-125 mg tablet 1 tab PO Q12H Qty: 14 0RF Referrals: [facility] [Other] Margaret Santiago MD [Physician, Cardiology] Shin José PA-C [Primary Care Provider, Medical] Stand Alone Forms: Patient Portal/API
--- NOTE | 2024-10-02 09:57 | DI.CT.S_ITS ---
PROCEDURE: CT ANGIO CHEST PE PROTOCOL INDICATIONS: chest pain TECHNIQUE: After the administration of intravenous contrast, 2 mm thick sections acquired from the pulmonary apices to the posterior costophrenic angles. 3-dimensional maximum intensity projection (MIP) coronal and sagittal reformats were then acquired through the thorax. For radiation dose reduction, the following was used: automated exposure control, adjustment of mA and/or kV according to patient size. COMPARISON: [facility], CT, CT ANGIO CHEST PE PROTOCOL, 09/22/2024, 11:33. FINDINGS: Image quality: Diagnostic. Pulmonary arteries: Pulmonary arteries are normal in size, and demonstrate no intraluminal filling defects to suggest central pulmonary embolism. Lower Neck: No enlarged lymph nodes. Thyroid: No thyroid nodules which require sonographic follow up, per consensus guidelines. Axillae: No enlarged lymph nodes. Chest Wall: Unremarkable. Bones: Postsurgical changes of the cervical spine are shown. No aggressive lesion. Lungs and Pleura: No pneumothorax or pleural effusions. No consolidation or suspicious nodules. Heart: Heart size is normal. No pericardial effusion. Thoracic Vessels: No aortic aneurysm. Mediastinum and Donna: No enlarged lymph nodes. Esophagus: No wall thickening. There is a hiatal hernia. Upper Abdomen: Postsurgical changes of the stomach are present. Visualized upper abdomen solid organs and bowel loops appear normal. IMPRESSION: No pulmonary embolus. No acute cardiopulmonary process. Hiatal hernia with postsurgical changes of the stomach. Dictated by: Isela Gomez M.D. on 10/02/2024 at 9:43 Approved by: Isela Gomez M.D. on 10/02/2024 at 9:55
[2024-10-02 10:08] LABS: INR 1.2 (0.9-1.3); Prothrombin Time 13.2 SECONDS (9.4-12.5)
[2024-10-02 10:10] LABS: PTT Partial Thromboplastin Tim 27 SECONDS (25.1-36.5)
[2024-10-02 10:11] LABS: Alanine Aminotransferase 13 IU/L (<50); Albumin 4.4 g/dL (3.5-5.0); Albumin Globulin Ratio 1.1 (1.0-2.8); Alkaline Phosphatase 96 U/L (38-126); Blood Urea Nitrogen 12 mg/dL (9-20); Calcium 9.9 mg/dL (8.4-10.2); Carbon Dioxide 23 mmol/L (22-32); Chloride 100 mmol/L (98-107); Creatine Kinase 38 U/L (55-170); Estimated Glomerular Filt Rate > 60 mL/min (>60); Globulin 3.9 g/dL (1.7-4.1); Glucose 126 mg/dL (70-99); Lipase 29 U/L (23-300); Magnesium 1.4 mg/dL (1.6-2.3); Potassium 4.0 mmol/L (3.4-5.1); Sodium 138 mmol/L (137-145); Total Protein 8.3 g/dL (6.3-8.2)
[2024-10-02 10:15] LABS: HEMOLYSIS 90 (0-50)
[2024-10-02 10:23] LABS: NT-proBNP (BNP-Adult 18+) 442 pg/mL (<125); Troponin I < 0.012 ng/mL (0.01-0.034)
[2024-10-02] MEDS: MAGNESIUM SULFATE 2 GM/50 ML PIGGYBACK IV (10:40)
--- NOTE | 2024-10-02 11:27 | EKG_ITS ---
[place] [id number] [address] [place] [id number] Test Date: 2024-10-02 Pat Name: Kristian Yin Department: [facility] Room: Gender: Male [place] Coordinator: SHIRIN : 1955 Requested By: Order Number: [id number] Reading MD: Edgar Blanco Measurements Intervals [place] Rate: 74 P: 94 LA: 144 QRS: -63 QRSD: 100 T: 61 QT: 380 QTc: 421 Interpretive Statements Normal sinus rhythm Pulmonary disease pattern Incomplete right bundle branch block Left anterior fascicular block Minimal voltage criteria for LVH, may be normal variant ( R in aVL ) Electronically Signed On 10-03-2024 8:41:29 PDT by Edgar Blanco
[2024-10-02 12:00] LABS: Troponin I < 0.012 ng/mL (0.01-0.034)
== END 2024-10-02 13:22 | disposition home or self-care (01) ==
PROVIDERS: Emergency Provider Family Medicine; PCP Student in an Organized Health Care Education/Training Program
DX: R07.89 Other chest pain (principal); E83.42 Hypomagnesemia; D64.9 Anemia, unspecified
CPT/HCPCS: 71045; 71275; 80053; 82550; 83690; 83735; 83880; 84484; 85025; 85610; 85730; 93005; 96365; 96375; 96376; 99284; J2270; J3475; Q9967

== ENCOUNTER 2024-10-04 23:39 | Emergency (ER) | payer MEDICARE, OTHER, SELFPAY ==
[2024-04-25 15:23] VITALS: BMI 29.0
[2024-10-04 23:46] VITALS: BP 194/123; PULSE 97; O2SAT 97
[2024-10-04 23:52] VITALS: BP 188/86; PULSE 78; O2SAT 98
[2024-10-04 23:54] VITALS: BP 188/86; PULSE 83; RESP 16; TEMP 36.8; O2SAT 99; BMI 29.0
--- NOTE | 2024-10-04 23:59 | ED.ABDPAIN ---
HPI - Abdominal Pain General Chief Complaint: Abdominal Pain Stated Complaint: RUQ abd pain Time Seen by Provider: 10/04/24 23:55 History of Present Illness HPI narrative: Patient is a 69-year-old male with a past medical history of hypertension diabetes status post gastric bypass surgery coming into the ED from home via EMS for recurrent/persistent abdominal pain. Patient states that he has been seen here multiple times for the same. Today he is stating that he is having pain to his periumbilical region, states it is very similar to when he has been here previously. When asked whether or not he has been taking the medications that he was prescribed he responds by stating ?I do not know I think my may have taken them. Patient denies any chest pain shortness of breath fever chills or any other GI/ symptoms at this time. Related Data Home Medications ?Medication ?Instructions ?Recorded ?Confirmed multivitamin 1 tab PO DAILY 09/10/18 07/21/24 olanzapine 20 mg tablet 20 mg PO BEDTIME 12/18/20 07/21/24 metformin 1,000 mg tablet 500 mg PO BID 09/15/23 07/21/24 sertraline 100 mg tablet 100 mg PO DAILY 04/25/24 07/21/24 Previous Rx's ?Medication ?Instructions ?Recorded acetaminophen 325 mg tablet 650 mg (2 x 325 mg) PO Q6H PRN 01/18/23 Fever/Mild Pain (1-3) #50 tabs nitroglycerin 0.4 mg sublingual 0.4 mg sublingual [id number] PRN 01/18/23 tablet (Nitrostat) Chest Pain #30 tabs diclofenac sodium 1 % topical gel 2.25 inch topical BID sternal pain 03/02/24 #60 grams amlodipine 5 mg tablet 5 mg PO DAILY #30 tabs 04/28/24 ferrous sulfate 325 mg (65 mg 325 mg PO DAILY #30 tabs 04/28/24 iron) tablet magnesium chloride 71.5 mg 128 mg (1.7902 x 71.5 mg) PO 1XD 04/28/24 (magnesium chloride) #30 tabs tablet,delayed release (Slow-Mag) omeprazole 40 mg capsule,delayed 40 mg PO BID #60 caps 07/01/24 release amoxicillin 875 mg-potassium 1 tab PO Q12H #14 tabs 09/22/24 clavulanate 125 mg tablet hydrocodone 5 mg-acetaminophen 325 1 tab PO Q4-6H PRN pain #12 tabs 09/29/24 mg tablet Allergies Allergy/AdvReac Type Severity Reaction Status Date / Time NSAIDS (Non-Steroidal AdvReac Mild CAN TAKE, Verified 10/02/24 09:34 Anti-Inflamma (NSAIDS BUT TRIES (NON-STEROIDAL ANTI-INFLAMMA) TO AVOID R/T GASTRIC BYPASS Review of Systems Review of Systems Narrative: General: Denies fever, chills, weight loss HEENT: Denies headache, eye drainage, eye irritation, head trauma, sore throat, voice change Cardiovascular: Denies any chest pain, palpitations, tachycardia Respiratory: Denies any shortness of breath, cough, wheeze, stridor GI/: Positive abdominal pain, denies nausea, vomiting, diarrhea, bright red blood per rectum, melanotic stools, urinary frequency, urinary retention, dysuria, hematuria MSK: Denies any joint pain, muscle pains, swelling Skin: Denies any rashes, lesions, discoloration Neuro: Denies any headache, lightheadedness, dizziness, fainting, weakness Psych: Denies SI/HI Patient History Medical History GERD (gastroesophageal reflux disease) HNP (herniated nucleus pulposus), lumbar History of bleeding ulcers Hypertriglyceridemia Non-insulin dependent type 2 diabetes mellitus HTN (hypertension) Nephrolithiasis Degenerative disc disease Surgical History History of vasectomy History of colonoscopy History of cholecystectomy History of gastric bypass History of cervical spinal surgery Status post lumbar surgery Family History Mother No known health problems Father No known health problems Social History household members: spouse and family alcohol intake: former tobacco type: cigarettes alcohol intake frequency: holidays/special occasions only Exam Narrative Exam Narrative: General: Cooperative, well-developed, not in acute distress HEENT: Normocephalic, atraumatic, PERRLA, normal sclera, eyelids normal Neck: Active full range of motion, atraumatic Chest: Normal to inspection, negative crepitus, no overlying erythema ecchymosis Respiratory: Normal respiratory effort, not in acute respiratory distress, clear to auscultation bilaterally negative cough, wheeze, tachypnea, rhonchi, rales Cardiology: Regular rate rhythm negative gallop, murmur, rubs GI/: No tenderness to palpation, soft, non rigid, normal to inspection, exam deferred MSK: Full active range of motion in all 4 extremities, atraumatic, no tenderness to palpation of any bony prominences Skin: No rashes or lesions noted Neuro: Alert awake oriented x3, moves all 4 extremities spontaneously, cranial nerves intact, able to answer all questions appropriately follows commands appropriately Psych: Cooperative, negative suicidal or homicidal ideations Initial Vital Signs Initial Vital Signs: Vital Signs Temperature 98.3 F 10/04/24 23:54 Pulse Rate 83 10/04/24 23:54 Respiratory Rate 16 10/04/24 23:54 Blood Pressure 188/86 H 10/04/24 23:54 Pulse Oximetry 99 10/04/24 23:54 Oxygen Delivery Method Room Air 10/04/24 23:54 Course Orders Ordered: ED Orders 10/05/24 00:15 CBC Auto Diff [Complete Blood Count AUTO DIFF] Stat CMP [Comprehensive Metabolic Panel] Stat Lipase Stat MAG [Magnesium] Stat Discontinued Medications Famotidine (Famotidine 20 Mg/2 Ml Vial) 20 mg IV NOW ONE Stop: 10/05/24 00:02 Last Admin: 10/05/24 00:37 Dose: 20 mg Documented By: KARO Morphine Sulfate (Morphine 4 Mg/Ml Inj) 4 mg IV NOW ONE Stop: 10/05/24 00:02 Last Admin: 10/05/24 00:38 Dose: 4 mg Documented By: KARO Ondansetron HCl (Ondansetron 4 Mg/2 Ml Inj) 4 mg IV NOW ONE Stop: 10/05/24 00:02 Last Admin: 10/05/24 00:37 Dose: 4 mg Documented By: KARO Vital Signs Vital signs: Vital Signs - 8 hr 10/04/24 23:54 Temperature 98.3 F Pulse Rate 83 Respiratory Rate 16 Blood Pressure 188/86 H Pulse Oximetry 99 Oxygen Delivery Method Room Air MDM - Abdominal Pain Differential Diagnosis Differential diagnosis: Likely abdominal pain, constipation, diverticulitis, endometriosis, gastroenteritis, pancreatitis and small bowel obstruction Lab Data 10/05/24 00:15 10/05/24 00:15 Labs: Lab Results 10/05/24 Range/Units 00:15 WBC 11.6 H (4.5-11.0) X10^3/uL RBC 4.46 L (4.5-5.9) X10^6/uL Hgb 11.1 L (13.5-17.5) g/dL Hct 34.6 L (41-53) % MCV 77.6 L (80-100) fL MCH 24.9 L (26-34) PG MCHC 32.1 (30-36) % RDW 17.9 H (11.6-14.8) % Plt Count 321 (150-400) X10^3/uL Neut % (Auto) 83.2 H (50-75) % Lymph % (Auto) 11.1 L (25-40) % [place] % (Auto) 5.1 (3-14) % Eos % (Auto) 0.4 L (2-4) % Baso % (Auto) 0.2 (0-2) % Neut # (Auto) 9600 H (2806-0562) /uL Lymph # (Auto) 1300 (2476-6309) /uL [place] # (Auto) 600 (0-900) /uL Eos # (Auto) 100 (0-450) /uL Baso # (Auto) 0 (0-100) /uL Sodium 136 L (137-145) mmol/L Potassium 3.4 (3.4-5.1) mmol/L Chloride 97 L (98-107) mmol/L Carbon Dioxide 29 (22-32) mmol/L BUN 18 (9-20) mg/dL Creatinine 0.80 (0.66-1.25) mg/dL Estimated GFR > 60 (>60) mL/min BUN/Creatinine Ratio 22.5 H (6-22) Glucose 142 H (70-99) mg/dL Calcium 10.5 H (8.4-10.2) mg/dL Magnesium 1.1 L (1.6-2.3) mg/dL Total Bilirubin 0.7 (0.2-1.3) mg/dL AST 31 (17-59) IU/L ALT 16 (<50) IU/L Alkaline Phosphatase 102 (38-126) U/L Total Protein 7.7 (6.3-8.2) g/dL Albumin 4.1 (3.5-5.0) g/dL Globulin 3.6 (1.7-4.1) g/dL Albumin/Globulin Ratio 1.1 (1.0-2.8) Lipase 47 D (23-300) U/L MDM Narrative Medical decision making narrative: Patient is a 69-year-old male with a past medical history of gastric bypass surgery, hypertension, diabetes, coming into the ED from home for evaluation of abdominal pain periumbilical in nature, he states that he has been seen here multiple times for this, he states that whenever he does take the medications that he was prescribed it does help his symptoms when asked whether or not he has taken them recently he states that ?I do not know my may have taken them. He denies any chest pain shortness breath fever chills or any other GI/ symptoms time. Review of records does show the patient has been seen here on 10/02/2024, 09/29/2024 and 09/22/2024 for the same symptoms. Workups at those times were negative for any acute findings. At this time we will hold off on any additional imaging given multiple recent CT scans. Patient understands and agrees with this plan. However we will obtain lab work and provide symptomatic relief. Lab work was unremarkable, patient had complete resolution of symptoms after administration of medication here, he was given strict return precautions and verbalized understanding of this, I informed him that we will not be giving him anymore medication due to the fact that he should still have more but still states that his ?may have taken them I informed him that he needs to follow up with the primary care and GI in outpatient setting for continued evaluation treatment of his symptoms he verbalized understanding of this and agrees to being discharged home with outpatient follow up Discharge Plan Departure Patient Disposition: Home Clinical Impression: Abdominal pain Activity Restrictions/Additional Instructions: Please follow up with your primary care doctor and senior quality assurance specialist is in an outpatient setting Please read the discharge instructions sheet carefully and bring all papers to all doctor follow-up visits, as it may contain information that your doctor may want to see. Disease processes change and evolve, if your symptoms worsen or if you develop any new symptoms that are concerning to you please return for evaluation. Your evaluation today does not show any evidence of any life-threatening/serious illnesses requiring admission to the hospital or surgery. Please follow-up with your doctor for re-evaluation in approximately 1 day. Seek immediate medical attention for any worrisome symptoms. *If you do not have a primary care provider please contact the [facility] Resource line at [phone]. They will ask some questions about your medical history and help get you set up with a doctor in the community. Prescriptions: No Action acetaminophen 325 mg Tablet 650 mg PO Q6H PRN (Reason: Fever/Mild Pain (1-3)) Qty: 50 0RF nitroglycerin [Nitrostat] 0.4 mg Tablet, Sublingual 0.4 mg sublingual [id number] PRN (Reason: Chest Pain) Qty: 30 0RF Patient Comments: months ago metformin 1,000 mg tablet 500 mg PO BID diclofenac sodium 1 % Gel 2.25 inch topical BID Qty: 60 0RF hydrocodone-acetaminophen 5-325 mg tablet 1 tab PO Q4-6H PRN (Reason: pain) Qty: 12 0RF multivitamin Tablet 1 tab PO DAILY olanzapine 20 mg tablet 20 mg PO BEDTIME Patient Comments: take 1 tablet by mouth at bedtime sertraline 100 mg tablet 100 mg PO DAILY amlodipine 5 mg Tablet 5 mg PO DAILY Qty: 30 1RF ferrous sulfate 325 mg (65 mg iron) Tablet 325 mg PO DAILY Qty: 30 1RF Slow-Mag 71.5 mg Tablet,Delayed Release (Dr/Ec) 128 mg PO 1XD Qty: 30 0RF omeprazole 40 mg capsule,delayed release(DR/EC) 40 mg PO BID Qty: 60 0RF amoxicillin-pot clavulanate 875-125 mg tablet 1 tab PO Q12H Qty: 14 0RF Referrals: Shin José PA-C [Primary Care Provider, Medical] Stand Alone Forms: Patient Portal/API
[2024-10-05] VITALS: PULSE 70; O2SAT 98
[2024-10-05 00:01] VITALS: BP 196/91; PULSE 83; O2SAT 100
[2024-10-05 00:24] LABS: Add Manual Diff / Slide Review NO; Hematocrit 34.6 % (41-53); Hemoglobin 11.1 g/dL (13.5-17.5); Lymphocytes Absolute Auto 1300 /uL (1100-4500); Mean Corpuscular HGB Conc 32.1 % (30-36); Mean Corpuscular Hemoglobin 24.9 PG (26-34); Mean Corpuscular Volume 77.6 fL (80-100); Platelet Count 321 X10^3/uL (150-400)
[2024-10-05 00:30] VITALS: PULSE 95; O2SAT 99
[2024-10-05] MEDS: FAMOTIDINE 20 MG/2 ML VIAL IV (00:37)
[2024-10-05] MEDS: ONDANSETRON 4 MG/2 ML INJ IV (00:37)
[2024-10-05] MEDS: MORPHINE 4 MG/ML INJ IV (00:38)
[2024-10-05 00:39] LABS: Alanine Aminotransferase 16 IU/L (<50); Albumin 4.1 g/dL (3.5-5.0); Albumin Globulin Ratio 1.1 (1.0-2.8); Blood Urea Nitrogen 18 mg/dL (9-20); Calcium 10.5 mg/dL (8.4-10.2); Carbon Dioxide 29 mmol/L (22-32); Chloride 97 mmol/L (98-107); Estimated Glomerular Filt Rate > 60 mL/min (>60); Globulin 3.6 g/dL (1.7-4.1); Glucose 142 mg/dL (70-99); Lipase 47 U/L (23-300); Magnesium 1.1 mg/dL (1.6-2.3); Sodium 136 mmol/L (137-145); Total Protein 7.7 g/dL (6.3-8.2)
[2024-10-05 00:43] VITALS: BP 177/99; PULSE 92; RESP 18; O2SAT 100
[2024-10-05 00:44] LABS: HEMOLYSIS 56 (0-50)
[2024-10-05 00:45] LABS: Alkaline Phosphatase 102 U/L (38-126); Potassium 3.4 mmol/L (3.4-5.1)
[2024-10-05 00:59] VITALS: PULSE 72; RESP 17; O2SAT 98
[2024-10-05 01:00] VITALS: BP 181/93
== END 2024-10-05 02:06 | disposition home or self-care (01) ==
PROVIDERS: Emergency Provider Student in an Organized Health Care Education/Training Program; PCP Student in an Organized Health Care Education/Training Program
DX: R10.33 Periumbilical pain (principal); Z98.84 Bariatric surgery status
CPT/HCPCS: 80053; 83690; 83735; 85025; 96374; 96375; 99283; 99284; J2270; J2405

== ENCOUNTER 2024-10-14 08:09 | Inpatient (IN) | payer MEDICARE, OTHER, SELFPAY ==
[2024-04-25 15:23] VITALS: BMI 29.0
[2024-10-14] VITALS (48 sets, daily range): BP systolic 87–167; BP diastolic 53–80; PULSE 68–131; RESP 10–29; TEMP 36.2–37.1; O2SAT 25–100; BMI 25.8; BMI 25.6
--- NOTE | 2024-10-14 | PATH_ITS ---
[facility] Accession Number: [id number] No. of containers..01 Tissue . 01 Material submitted: . gastrointestinal site - GASTRIC ANASTOMOSIS ULCER . 01 Diagnosis: GASTRIC ANASTOMOSIS, BIOPSY: Ulcer bed with foreign material; please see comment. Negative for Helicobacter organisms by immunohistochemistry. Negative for dysplasia or malignancy. [facility] 10/24/2024 1401 Local . 01 Comment: The histologic findings raise the possibility of iron pill gastritis in the appropriate clinical setting. . 01 Electronically signed: . Buck Leon MD, PhD, Pathologist NPI- [id number] . 01 Gross description: . GASTRIC ANASTOMOSIS ULCER: Received in formalin are 2 fragment(s) of [place], soft tissue measuring 0.2 x 0.2 x 0.2 cm to 0.3 x 0.2 x 0.2 cm submitted entirely in 1 cassette(s) /[facility] 10/19/2024 2317 Local . 01 Microscopic: . An immunohistochemical stain was performed to evaluate for Helicobacter organisms and is negative. The control stain showed appropriate reactivity. . * This test was developed and the performance characteristics were validated by [facility]. It has not been cleared or approved by the U.S. Food and Drug Administration. . 01 Pathologist provided ICD-10: K29.70 . 01 CPT . 271514, C25080 Specimen Comment: A courtesy copy of this report has been sent to [facility] Pathology Performed at: [address] [address], [place], [place] [id number] MD Fidel Garcia MD Phone: [phone]
--- NOTE | 2024-10-14 08:06 | EKG_ITS ---
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
--- NOTE | 2024-10-14 08:14 | DI.CT.S_ITS ---
PROCEDURE: CT ABDOMEN PELVIS W CON INDICATIONS: Abdominal pain, diarrhea, hematochezia TECHNIQUE: After the administration of intravenous contrast, axial sections acquired from the lung bases to the pubic symphysis. Coronal and sagittal reformats were performed. For radiation dose reduction, the following was used: automated exposure control, adjustment of mA and/or kV according to patient size. COMPARISON: [facility], CT, CT ABDOMEN PELVIS W CON, 09/29/2024, 1:24. FINDINGS: Image quality: Diagnostic. Lower Chest: Moderate size hiatal hernia. Bilateral lung bases are clear. Heart size is normal, no pericardial effusion. ABDOMEN: Liver: No solid mass. Gallbladder: Gallbladder is surgically absent. Biliary ducts: No biliary dilation. Pancreas: No ductal dilation. Questionable peripancreatic inflammatory changes particularly adjacent to head and uncinate process of pancreas. No peripancreatic fluid collection. No discrete pancreatic lesion is seen. Spleen: Size is within normal limits. Adrenal Glands: No adrenal nodules. Kidneys and Ureters: No hydronephrosis. No solid mass. No complex renal cystic lesion which requires follow up. Stomach and Bowel: Postsurgical changes are again seen in stomach and left upper quadrant abdomen. Surgical anastomosis are grossly intact. There is suggestion of gastric wall thickening and proximal small bowel wall thickening. No abscess collection. No evidence of obstruction. Mild fecal stasis in the colon is seen. Peritoneum: No abnormal intraperitoneal fluid. No free air. Ventral Wall: No significant ventral hernia. Abdominal Nodes: No retroperitoneal or mesenteric adenopathy by size criteria. Vessels: Aorta and inferior vena cava are normal in size. PELVIS: Pelvic Organs: Unremarkable. Bladder: No bladder wall thickening, accounting for underdistention. Pelvic Nodes: No enlarged lymph nodes. Miscellaneous: No inguinal hernias are seen. Bones: No aggressive osseous abnormality. Pelvic ring is intact. Postsurgical changes are noted in lower lumbar spine from transpedicular fusion. No acute vertebral body compression fracture. IMPRESSION: 1. No evidence of acute trauma is seen in abdomen or pelvis. 2. Postsurgical changes in epigastric region and left upper quadrant with grossly intact surgical anastomosis. Suggestion of gastric and proximal small bowel wall thickening concerning for gastroenteritis. No abscess collection. No free fluid or free air. 3. Questionable inflammatory changes adjacent to head and uncinate process of pancreas which may be related to adjacent inflammation in the stomach and proximal small bowel loops. Clinical correlation is recommended to rule out underlying pancreatitis. No peripancreatic fluid collection. 4. Other chronic changes as above. Dictated by: Brayan Diaz M.D. on 10/14/2024 at 8:58 Approved by: Brayan Diaz M.D. on 10/14/2024 at 9:05
--- NOTE | 2024-10-14 08:22 | ED_ITS ---
HPI - GI Bleed General Chief complaint: GI Bleed Stated complaint: SOB Time Seen by Provider: 10/14/24 08:11 Source: EMS Mode of arrival: EMS History of Present Illness HPI Narrative: 69 years old male with history of diabetes, hypertension, coronary artery disease, chronic anemia, gastric bypass surgery brought in by an ambulance for shortness of breath. As per his he was found on the floor update she heard the fall. She said he was sitting on the steps. He thought he might pass out. He reported diarrhea with blood since this morning along with nausea, abdominal pain, shortness of breath, headaches, neck pain. He denied any chest pain, arm or leg pain, back pain, vomiting, urine problem. He denies taking alcohol, NSAIDs but take hydrocodone. He has an appointment for EGD on 10/27/2024. He denied taking blood thinners. Last seen in the ED was 10/05/2024 fall abdominal pain and last CT scan abdomen and pelvis was 09/29/2024 show mild pancreatic edema without other acute finding. Related Data Home Medications ?Medication ?Instructions ?Recorded ?Confirmed multivitamin 1 tab PO DAILY 09/10/18 08/04/09 metformin 1,000 mg tablet 500 mg PO BID 09/15/2310/14 pantoprazole 40 mg tablet,delayed 40 mg PO DAILY 10/1410/14/24 release Previous Rx's ?Medication ?Instructions ?Recorded acetaminophen 325 mg tablet 650 mg (2 x 325 mg) PO Q6H PRN 01/18/23 Fever/Mild Pain (1-3) #50 tabs nitroglycerin 0.4 mg sublingual 0.4 mg sublingual Q5MI NX3 PRN 01/18/23 tablet (Nitrostat) Chest Pain #30 tabs ferrous sulfate 325 mg (65 mg 325 mg PO DAILY #30 tabs 04/28/24 iron) tablet hydrocodone 5 mg-acetaminophen 325 1 tab PO Q4-6H PRN pain #12 tabs 09/29/24 mg tablet Allergies Allergy/AdvReac Type Severity Reaction Status Date / Time NSAIDS (Non-Steroidal AdvReac Mild CAN TAKE, Verified 10/14/24 08:15 Anti-Inflamma (NSAIDS BUT TRIES (NON-STEROIDAL ANTI-INFLAMMA) TO AVOID R/T GASTRIC BYPASS Review of Systems Review of Systems Narrative: Positive for syncope, abdominal pain, nausea, neck pain, bloody diarrhea, shortness of breath, headaches. He also was found on the floor. Negative for chest pain, vomiting, back pain, urine problem. Patient History Medical History Degenerative disc disease GERD (gastroesophageal reflux disease) History of bleeding ulcers HNP (herniated nucleus pulposus), lumbar HTN (hypertension) Hypertriglyceridemia Nephrolithiasis Non-insulin dependent type 2 diabetes mellitus Surgical History History of cervical spinal surgery History of cholecystectomy History of colonoscopy History of gastric bypass History of vasectomy Status post lumbar surgery Family History Mother No known health problems Father No known health problems Social History household members: spouse and family alcohol intake: former tobacco type: cigarettes alcohol intake frequency: holidays/special occasions only Exam Narrative Exam Narrative: GENERAL: Cooperative. Look weak and pale. Generalized weakness. HEAD: Atraumatic. Normocephalic. EYES: Pupils equal round and reactive. Extraocular motions intact. No scleral icterus. No injection or drainage. NECK: Trachea midline. Non tender CARDIOVASCULAR: Tachycardia. Irregular rhythm without murmurs, gallops, or rubs. RESPIRATORY: Clear to auscultation. Breath sounds equal bilaterally. No wheezes, rales, or rhonchi. GASTROINTESTINAL: Abdomen soft, non-tender, nondistended. Rectal exams by inspection show hematochezia. EXTREMITIES: No edema or joint tenderness. BACK: Nontender without deformity or crepitance. No flank tenderness. NEURO: AOx3. SKIN: No rash or erythema of visible areas Initial Vital Signs Initial Vital Signs: Vital Signs Pulse Rate 131 H 10/14/24 08:08 Respiratory Rate 23 10/14/24 08:08 Course Orders Ordered: Acetaminophen (Acetaminophen 325 Mg Tablet) 650 mg PO Q6H PRN PRN Reason: Fever/Mild Pain (1-3) Hydromorphone HCl (Hydromorphone 1 Mg Inj) 1 mg IV Q2H PRN PRN Reason: Pain, Severe (7-10) Last Admin: 10/14/24 18:00 Dose: 1 mg Documented By: Admin: 10/14/24 15:50 Dose: 1 mg Documented By: DANIEL Dextrose/Sodium Chloride (Dextrose 5%-0.45% Ns) 1,000 mls @ 100 mls/hr IV CONT DEANNE Last Admin: 10/14/24 14:17 Dose: 100 mls/hr Documented By: DANIEL Lactated Ringer's (Lactated Ringers) 1,000 mls @ 42 mls/hr IV CONT DEANNE Last Infusion: 10/14/24 14:17 Dose: 0 mls/hr Documented By: Admin: 10/14/24 13:18 Dose: 42 mls/hr Documented By: CARLTON Insulin Human Lispro (Insulin Lispro 100 Unit/Ml 3ml Vial) 0 unit SUBCUT Q6H DEANNE; Protocol Last Admin: 10/14/24 18:16 Dose: Not Given Documented By: Admin: 10/14/24 14:04 Dose: Not Given Documented By: DANIEL Ondansetron HCl (Ondansetron 4 Mg/2 Ml Inj) 4 mg IV Q6HR PRN PRN Reason: Nausea And Vomiting Last Admin: 10/14/24 18:00 Dose: 4 mg Documented By: DANIEL Pantoprazole Sodium (Pantoprazole 40 Mg Vial) 40 mg IV BID DEANNE Discontinued Medications Hydromorphone HCl (Hydromorphone Hcl 0.5 Mg/0.5 Ml Syringe) 0.5 mg IV Q2H PRN PRN Reason: Pain, Severe (7-10) Last Admin: 10/14/24 14:17 Dose: 0.5 mg Documented By: DANIEL Pantoprazole Sodium (Pantoprazole 40 Mg Vial) 40 mg IV NOW ONE Stop: 10/14/24 08:15 Last Admin: 10/14/24 08:43 Dose: 40 mg Documented By: ROYER Pantoprazole Sodium (Pantoprazole 40 Mg Vial) 40 mg IV DAILY [facility] Vital Signs Vital signs: Vital Signs - 8 hr 10/14/24 10:45 10/14/24 10:45 Pulse Rate 92 H Respiratory Rate 15 Blood Pressure 103/57 L Pulse Oximetry 100 MDM - GI Bleed Lab Data 10/14/24 16:58 10/14/24 08:20 Labs: Lab Results 10/14/24 Range/Units 08:20 WBC 15.6 H (4.5-11.0) X10^3/uL RBC 2.94 L (4.5-5.9) X10^6/uL Hgb 7.4 L (13.5-17.5) g/dL Hct 23.4 L (41-53) % MCV 79.5 L (80-100) fL MCH 25.1 L (26-34) PG MCHC 31.6 (30-36) % RDW 18.4 H (11.6-14.8) % Plt Count 344 (150-400) X10^3/uL Neut % (Auto) Not Reportable Lymph % (Auto) Not Reportable Winn % (Auto) Not Reportable Eos % (Auto) Not Reportable Baso % (Auto) Not Reportable Lymph # (Auto) Not Reportable Winn # (Auto) Not Reportable Baso # (Auto) Not Reportable Total Counted 100 Seg Neutrophils % 88.0 H (38-70) % Band Neutrophils % 6.0 (3-7) % Lymphocytes % (Manual) 4.0 L (25-45) % Monocytes % (Manual) 2.0 (2-11) % Neutrophils # (Manual) 58169 H (0836-1903) /uL Nucleated RBCs 3 H ( - 0) #/Diff RBC Morphology See below Anisocytosis 1+ H Ovalocytes 1+ H PT 14.7 H (9.4-12.5) SECONDS INR 1.3 (0.9-1.3) APTT 24 L (25.1-36.5) SECONDS Sodium 135 L (137-145) mmol/L Potassium 4.0 (3.4-5.1) mmol/L Chloride 100 (98-107) mmol/L Carbon Dioxide 19 L (22-32) mmol/L BUN 36 H (9-20) mg/dL Creatinine 1.05 (0.66-1.25) mg/dL Estimated GFR > 60 (>60) mL/min BUN/Creatinine Ratio 34.3 H (6-22) Glucose 254 H D (70-99) mg/dL Calcium 8.2 L (8.4-10.2) mg/dL Magnesium 1.6 (1.6-2.3) mg/dL Total Bilirubin 0.9 (0.2-1.3) mg/dL AST 40 (17-59) IU/L ALT 96 H (<50) IU/L Alkaline Phosphatase 90 (38-126) U/L Troponin I < 0.012 (0.01-0.034) ng/mL Total Protein 6.0 L (6.3-8.2) g/dL Albumin 3.2 L (3.5-5.0) g/dL Globulin 2.8 (1.7-4.1) g/dL Albumin/Globulin Ratio 1.1 (1.0-2.8) Lipase 28 (23-300) U/L Ethyl Alcohol < 10 (<10) mg/dL Blood Type O Positive Antibody Screen Negative Crossmatch See Detail Imaging Data CTA chest: Radiologist's Impression: PROCEDURE: CT ANGIO CHEST PE PROTOCOL INDICATIONS: Syncope. Was found to floor. TECHNIQUE: After the administration of intravenous contrast, 2 mm thick sections acquired from the pulmonary apices to the posterior costophrenic angles. 3-dimensional maximum intensity projection (MIP) coronal and sagittal reformats were then acquired through the thorax. For radiation dose reduction, the following was used: automated exposure control, adjustment of mA and/or kV according to patient size. COMPARISON: [facility], CT, CT ANGIO CHEST PE PROTOCOL, 10/02/2024, 10:00. FINDINGS: Image quality: Diagnostic. Pulmonary arteries: Pulmonary arteries are normal in size, and demonstrate no intraluminal filling defects to suggest central pulmonary embolism. Lower Neck: No enlarged lymph nodes. Thyroid: No thyroid nodules which require sonographic follow up, per consensus guidelines. Axillae: No enlarged lymph nodes. Chest Wall: Unremarkable. Bones: Postsurgical changes are noted in included portion of lower cervical spine. Lungs and Pleura: No pneumothorax or pleural effusions. No consolidation or suspicious nodules. Heart: Heart size is normal. No pericardial effusion. Thoracic Vessels: No aortic aneurysm. Mediastinum and Donna: No enlarged lymph nodes. Esophagus: No wall thickening. Moderate sized hiatal hernia. Upper Abdomen: Please correlate with CT of abdomen and pelvis findings. IMPRESSION: 1. No pulmonary embolus. No thoracic aortic aneurysm or gross dissection. 2. No acute cardiopulmonary process. 3. Chronic findings not significantly changed from prior studies. Dictated by: Brayan Diaz M.D. on 10/14/2024 at 9:05 Approved by: Brayan Diaz M.D. on 10/14/2024 at 9:08 CT C-spine: Radiologist's Impression: PROCEDURE: CT CERVICAL SPINE WO CON INDICATIONS: Syncope, was found on the floor. TECHNIQUE: Noncontrast 3 mm thick sections acquired from the skull base to the T4 level. Sagittal and coronal reformats were then constructed. For radiation dose reduction, the following was used: automated exposure control, adjustment of mA and/or kV according to patient size. COMPARISON: [facility], CT, CT CERVICAL SPINE WO CON, 05/27/2022, 13:58. FINDINGS: Image quality: Excellent. Bones: There is extensive ACDF at C4 through C7 levels with near complete bony union at C6-7 level. No obvious hardware loosening or failure. No fractures or dislocations. Spondylitic changes are noted throughout cervical spine not significantly changed from 2022 study. Visualized superior ribs are intact. Soft tissues: Prevertebral soft tissues are normal in thickness. No paravertebral hematomas. No apical pneumothoraces. IMPRESSION: 1. No displaced fracture or traumatic subluxation. 2. Stable post ACDF changes in mid to lower cervical spine with stable cervical spine alignment. Spondylitic changes throughout rest of the cervical spine unchanged from prior study. Dictated by: Brayan Diaz M.D. on 10/14/2024 at 8:56 Approved by: Brayan Diaz M.D. on 10/14/2024 at 8:58 CT scan - head: Radiologist's Impression: PROCEDURE: CT HEAD/BRAIN WO CON INDICATIONS: Was found on the floor this morning. GI bleed. TECHNIQUE: Noncontrast 4.5 mm thick angled axial sections acquired from the foramen magnum to the vertex, with coronal and sagittal reformats. For radiation dose reduction, the following was used: automated exposure control, adjustment of mA and/or kV according to patient size. COMPARISON: [facility], CT, CT HEAD/BRAIN WO CON, 08/01/2022, 14:59. FINDINGS: Image quality: Diagnostic. CSF spaces: Basal cisterns are patent. No extra-axial fluid collections. The ventricles are symmetric in size and shape. Brain: No intracranial bleeds or mass effect. There is cerebral volume loss, with resultant ventricular and sulcal prominence. There are periventricular and deep white matter chronic small vessel ischemic changes. There is intracranial internal carotid artery atherosclerosis. Skull and face: Calvarium and visualized facial bones appear intact, without suspicious lesions. Sinuses: Visualized sinuses and mastoids are clear. IMPRESSION: No acute intracranial pathology. Dictated by: Brayan Diaz M.D. on 10/14/2024 at 8:54 Approved by: Brayan Diaz M.D. on 10/14/2024 at 8:54 CT scan - abdomen/pelvis: Radiologist's Impression: PROCEDURE: CT ABDOMEN PELVIS W CON INDICATIONS: Abdominal pain, diarrhea, hematochezia TECHNIQUE: After the administration of intravenous contrast, axial sections acquired from the lung bases to the pubic symphysis. Coronal and sagittal reformats were performed. For radiation dose reduction, the following was used: automated exposure control, adjustment of mA and/or kV according to patient size. COMPARISON: [facility], CT, CT ABDOMEN PELVIS W CON, 09/29/2024, 1:24. FINDINGS: Image quality: Diagnostic. Lower Chest: Moderate size hiatal hernia. Bilateral lung bases are clear. Heart size is normal, no pericardial effusion. ABDOMEN: Liver: No solid mass. Gallbladder: Gallbladder is surgically absent. Biliary ducts: No biliary dilation. Pancreas: No ductal dilation. Questionable peripancreatic inflammatory changes particularly adjacent to head and uncinate process of pancreas. No peripancreatic fluid collection. No discrete pancreatic lesion is seen. Spleen: Size is within normal limits. Adrenal Glands: No adrenal nodules. Kidneys and Ureters: No hydronephrosis. No solid mass. No complex renal cystic lesion which requires follow up. Stomach and Bowel: Postsurgical changes are again seen in stomach and left upper quadrant abdomen. Surgical anastomosis are grossly intact. There is suggestion of gastric wall thickening and proximal small bowel wall thickening. No abscess collection. No evidence of obstruction. Mild fecal stasis in the colon is seen. Peritoneum: No abnormal intraperitoneal fluid. No free air. Ventral Wall: No significant ventral hernia. Abdominal Nodes: No retroperitoneal or mesenteric adenopathy by size criteria. Vessels: Aorta and inferior vena cava are normal in size. PELVIS: Pelvic Organs: Unremarkable. Bladder: No bladder wall thickening, accounting for underdistention. Pelvic Nodes: No enlarged lymph nodes. Miscellaneous: No inguinal hernias are seen. Bones: No aggressive osseous abnormality. Pelvic ring is intact. Postsurgical changes are noted in lower lumbar spine from transpedicular fusion. No acute vertebral body compression fracture. IMPRESSION: 1. No evidence of acute trauma is seen in abdomen or pelvis. 2. Postsurgical changes in epigastric region and left upper quadrant with grossly intact surgical anastomosis. Suggestion of gastric and proximal small bowel wall thickening concerning for gastroenteritis. No abscess collection. No free fluid or free air. 3. Questionable inflammatory changes adjacent to head and uncinate process of pancreas which may be related to adjacent inflammation in the stomach and proximal small bowel loops. Clinical correlation is recommended to rule out underlying pancreatitis. No peripancreatic fluid collection. 4. Other chronic changes as above. Dictated by: Brayan Diaz M.D. on 10/14/2024 at 8:58 Approved by: Brayan Diaz M.D. on 10/14/2024 at 9:05 ECG Data Interpretation: First EKG showed atrial fibrillation at rate 140 beats per minute with slight ST depression in V2, V3 left axis deviation. Second EKG showed normal sinus rhythm at 100 beats per minute with PACs without ischemic ST-T changes. [facility] Narrative Medical decision making narrative: 10/14/2024, 10:41 a.m. I discussed the case with our hospitalist and the patient was accepted to the hospital. I discussed the case with our surgeon on-call who will come to see the patient in the ED. 69 years old male with history of gastric bypass surgery, chronic anemia, coronary artery disease, diabetes, hypertension brought in by ambulance today for rectal bleeding, shortness of breath, nausea, abdominal pain and he also was found on the floor by his . He reported syncopal episode. His CV exam showed tachycardia and irregular regular when he came to the ED. His lung exam, abdominal exam were normal. He was pale and weak. His previous EGD and colonoscopy was done on 09/2024. I did CT head, C-spine and CTA chest showed no acute finding. His CT abdomen and pelvis today showed my edema of the pancreas and proximal small bowel and gastric thickening. He was given Protonix, blood transfusion. He was given IV normal saline on the way here. I discussed the case with our hospitalist and the surgeon on-call and the patient was accepted to the hospital. His CBC showed WBC of 15.6 and hemoglobin 7.4 (baseline hemoglobin was 11.1). His PT 14.7 and INR 1.3, PTT 24. His CMP shows sodium 135 BUN 36 calcium 8.2 ALT 96 albumin 3.2. His lipase was normal. His troponin was negative. His alcohol was negative. Critical Care Time Critical Care Time Attestation: I spent at least 40 minute on critical care time this patient. Discharge Plan Departure Patient Disposition: Admitted As Inpatient Clinical Impression: GI (gastrointestinal bleed), Syncope, Fall, Drop in hemoglobin Admit Date/Time: 10/14/24 10:45 Admit Provider: Roman Best V
--- NOTE | 2024-10-14 08:27 | DI.CT.S_ITS ---
PROCEDURE: CT ANGIO CHEST PE PROTOCOL INDICATIONS: Syncope. Was found to floor. TECHNIQUE: After the administration of intravenous contrast, 2 mm thick sections acquired from the pulmonary apices to the posterior costophrenic angles. 3-dimensional maximum intensity projection (MIP) coronal and sagittal reformats were then acquired through the thorax. For radiation dose reduction, the following was used: automated exposure control, adjustment of mA and/or kV according to patient size. COMPARISON: [facility], CT, CT ANGIO CHEST PE PROTOCOL, 10/02/2024, 10:00. FINDINGS: Image quality: Diagnostic. Pulmonary arteries: Pulmonary arteries are normal in size, and demonstrate no intraluminal filling defects to suggest central pulmonary embolism. Lower Neck: No enlarged lymph nodes. Thyroid: No thyroid nodules which require sonographic follow up, per consensus guidelines. Axillae: No enlarged lymph nodes. Chest Wall: Unremarkable. Bones: Postsurgical changes are noted in included portion of lower cervical spine. Lungs and Pleura: No pneumothorax or pleural effusions. No consolidation or suspicious nodules. Heart: Heart size is normal. No pericardial effusion. Thoracic Vessels: No aortic aneurysm. Mediastinum and Donna: No enlarged lymph nodes. Esophagus: No wall thickening. Moderate sized hiatal hernia. Upper Abdomen: Please correlate with CT of abdomen and pelvis findings. IMPRESSION: 1. No pulmonary embolus. No thoracic aortic aneurysm or gross dissection. 2. No acute cardiopulmonary process. 3. Chronic findings not significantly changed from prior studies. Dictated by: Brayan Diaz M.D. on 10/14/2024 at 9:05 Approved by: Brayan Diaz M.D. on 10/14/2024 at 9:08
--- NOTE | 2024-10-14 08:27 | DI.CT.S_ITS ---
PROCEDURE: CT CERVICAL SPINE WO CON INDICATIONS: Syncope, was found on the floor. TECHNIQUE: Noncontrast 3 mm thick sections acquired from the skull base to the T4 level. Sagittal and coronal reformats were then constructed. For radiation dose reduction, the following was used: automated exposure control, adjustment of mA and/or kV according to patient size. COMPARISON: [facility], CT, CT CERVICAL SPINE WO CON, 05/27/2022, 13:58. FINDINGS: Image quality: Excellent. Bones: There is extensive ACDF at C4 through C7 levels with near complete bony union at C6-7 level. No obvious hardware loosening or failure. No fractures or dislocations. Spondylitic changes are noted throughout cervical spine not significantly changed from 2022 study. Visualized superior ribs are intact. Soft tissues: Prevertebral soft tissues are normal in thickness. No paravertebral hematomas. No apical pneumothoraces. IMPRESSION: 1. No displaced fracture or traumatic subluxation. 2. Stable post ACDF changes in mid to lower cervical spine with stable cervical spine alignment. Spondylitic changes throughout rest of the cervical spine unchanged from prior study. Dictated by: Brayan Diaz M.D. on 10/14/2024 at 8:56 Approved by: Brayan Diaz M.D. on 10/14/2024 at 8:58
--- NOTE | 2024-10-14 08:27 | PC.NURSE ---
Patient spouse arrives and informs this RN that she found patient on step this morning but heard a fall happen. This RN asks patient about this patient states right flank also is painful. When asked how the patient fell patient responds I think I passed out. This RN immediately informed provider who re entered the room and asked patient and spouse additional questions and added new orders for additional imaging.
[2024-10-14 08:39] LABS: Add Manual Diff / Slide Review YES; Hematocrit 23.4 % (41-53); Hemoglobin 7.4 g/dL (13.5-17.5); Mean Corpuscular HGB Conc 31.6 % (30-36); Mean Corpuscular Hemoglobin 25.1 PG (26-34); Mean Corpuscular Volume 79.5 fL (80-100); Platelet Count 344 X10^3/uL (150-400)
[2024-10-14] MEDS: PANTOPRAZOLE 40 MG VIAL IV ×2 (08:43→20:29)
[2024-10-14 08:48] LABS: INR 1.3 (0.9-1.3); Prothrombin Time 14.7 SECONDS (9.4-12.5)
[2024-10-14 08:51] LABS: PTT Partial Thromboplastin Tim 24 SECONDS (25.1-36.5)
[2024-10-14 08:52] LABS: Alanine Aminotransferase 96 IU/L (<50); Albumin 3.2 g/dL (3.5-5.0); Albumin Globulin Ratio 1.1 (1.0-2.8); Alkaline Phosphatase 90 U/L (38-126); Anisocytosis 1+; Band Neutrophils Percent 6.0 % (3-7); Blood Urea Nitrogen 36 mg/dL (9-20); Calcium 8.2 mg/dL (8.4-10.2); Carbon Dioxide 19 mmol/L (22-32); Chloride 100 mmol/L (98-107); Estimated Glomerular Filt Rate > 60 mL/min (>60); Globulin 2.8 g/dL (1.7-4.1); Glucose 254 mg/dL (70-99); HEMOLYSIS < 15 (0-50); Lymphocytes Percent Manual 4.0 % (25-45); Monocytes Percent Manual 2.0 % (2-11); Neutrophils Absolute Manual 14664 /uL (3000-5900); Ovalocytes 1+; Potassium 4.0 mmol/L (3.4-5.1); Segmented Neutrophils Percent 88.0 % (38-70); Sodium 135 mmol/L (137-145); Total Cells Counted 100; Total Protein 6.0 g/dL (6.3-8.2)
[2024-10-14 08:53] LABS: Ethanol (ETOH) < 10 mg/dL (<10); Lipase 28 U/L (23-300); Magnesium 1.6 mg/dL (1.6-2.3)
[2024-10-14 09:15] LABS: Troponin I < 0.012 ng/mL (0.01-0.034)
--- NOTE | 2024-10-14 09:34 | EKG_ITS ---
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
--- NOTE | 2024-10-14 11:20 | PC.NURSE ---
This RN gave verbal report to [facility] ICU.
--- NOTE | 2024-10-14 11:51 | PC.ADMIT ---
[email or web address] [facility] [address] Admission Note: 1136 - Patient arrived via stretcher, transferred to new bed via slide board. All vitals normal, sinus rhythm. One unit of blood transfusing to left forearm IV @ 200mls/hr. , Cecy, at bedside. Patient and oriented to room. Dr. Davis notified of patient arrival, awaiting orders. The patient,Kristian Yin,69 y/o, was given written information regarding hospital policies, unit procedures and contact persons. Patient's smoking status: . Vital Signs - 8 hr 10/14/24 08:08 10/14/24 08:15 10/14/24 08:16 Temperature 98.2 F Pulse Rate 131 H 103 H 122 H Respiratory Rate 23 25 H Blood Pressure 103/61 Pulse Oximetry 98 100 Oxygen Delivery Method Nasal Cannula Nasal Cannula Oxygen Flow Rate 2 2 10/14/24 08:45 10/14/24 08:45 10/14/24 09:00 Temperature Pulse Rate 101 H 97 H Respiratory Rate 14 14 Blood Pressure 112/66 Pulse Oximetry 100 100 Oxygen Delivery Method Oxygen Flow Rate 10/14/24 09:00 10/14/24 09:30 10/14/24 09:39 Temperature 98.5 F Pulse Rate 99 H 94 H Respiratory Rate 24 24 Blood Pressure 110/55 L 112/56 L Pulse Oximetry 100 Oxygen Delivery Method Oxygen Flow Rate 10/14/24 09:39 10/14/24 09:39 10/14/24 09:45 Temperature Pulse Rate 96 H 96 H Respiratory Rate 15 19 Blood Pressure 112/56 L Pulse Oximetry 100 100 Oxygen Delivery Method Oxygen Flow Rate 10/14/24 09:45 10/14/24 09:59 10/14/24 10:00 Temperature 98.6 F 98.6 F Pulse Rate 93 H 96 H Respiratory Rate 19 16 Blood Pressure 103/56 L 94/57 L 107/59 L Pulse Oximetry Oxygen Delivery Method Oxygen Flow Rate 10/14/24 10:00 10/14/24 10:01 10/14/24 10:01 Temperature Pulse Rate 96 H 97 H Respiratory Rate 14 14 Blood Pressure 94/57 L Pulse Oximetry 100 100 Oxygen Delivery Method Oxygen Flow Rate 10/14/24 10:15 10/14/24 10:15 10/14/24 10:30 Temperature Pulse Rate 92 H 93 H Respiratory Rate 14 12 Blood Pressure 106/62 Pulse Oximetry 100 100 Oxygen Delivery Method Oxygen Flow Rate 10/14/24 10:30 10/14/24 10:45 10/14/24 10:45 Temperature Pulse Rate 92 H Respiratory Rate 15 Blood Pressure 107/59 L 103/57 L Pulse Oximetry 100 Oxygen Delivery Method Oxygen Flow Rate 10/14/24 11:00 10/14/24 11:00 10/14/24 11:04 Temperature 98.7 F Pulse Rate 90 90 Respiratory Rate 13 18 Blood Pressure 99/54 L 99/54 L Pulse Oximetry 100 Oxygen Delivery Method Oxygen Flow Rate 10/14/24 11:15 10/14/24 11:15 Temperature Pulse Rate 88 Respiratory Rate 11 L Blood Pressure 101/57 L Pulse Oximetry 100 Oxygen Delivery Method Oxygen Flow Rate
--- NOTE | 2024-10-14 11:57 | PM.HP.IH.1 ---
History of Present Illness History of Present Illness Date Patient Seen: 10/14/24 Time Patient Seen: 11:15 Chief complaint: Syncope, hematochezia Narrative: 69-year-old man under the primary care of Dr. Bebo Wilson reports 2 weeks of crampy abdominal pain, decreased to no appetite, anorexia, 20 lb weight loss and a syncopal episode this morning while walking down stairs, with sudden onset of dark red hematochezia. He was walking down stairs and on the last step fell, denying injuries, reporting nausea but no vomiting or hematemesis. Denies NSAID or aspirin use. He had a nonbleeding marginal ulcer near the gastrojejunal anastomosis of prior gastric bypass on EGD on 07/21/2024, and a normal colonoscopy at that time. His hematocrit was 23.4% on admission, down from 34.6% on 10/05/2024 when he presented to the emergency department with ongoing crampy abdominal pain. On chart review this has been going on for considerably longer but he states it is most prominent in the past 2 weeks. He is accompanied by his Cecy. He notes mild headache but denies other discomfort at this point. [facility] Medical History Degenerative disc disease GERD (gastroesophageal reflux disease) History of bleeding ulcers HNP (herniated nucleus pulposus), lumbar HTN (hypertension) Hypertriglyceridemia Nephrolithiasis Non-insulin dependent type 2 diabetes mellitus Surgical History History of cervical spinal surgery History of cholecystectomy History of colonoscopy History of gastric bypass History of vasectomy Status post lumbar surgery Family History Mother No known health problems Father No known health problems Social History household members: spouse and family alcohol intake: former Meds Home Medications and Allergies Home Medications ?Medication ?Instructions ?Recorded ?Confirmed ?Type multivitamin 1 tab PO DAILY 09/10/18 10/14/24 History acetaminophen 325 mg tablet 650 mg (2 x 325 mg) PO Q6H PRN 01/18/23 10/14/24 Rx Fever/Mild Pain (1-3) #50 tabs nitroglycerin 0.4 mg sublingual 0.4 mg sublingual [id number] PRN 01/18/23 10/14/24 Rx tablet (Nitrostat) Chest Pain #30 tabs metformin 1,000 mg tablet 500 mg PO BID 09/15/23 10/14/24 History ferrous sulfate 325 mg (65 mg 325 mg PO DAILY #30 tabs 04/28/24 10/14/24 Rx iron) tablet hydrocodone 5 mg-acetaminophen 325 1 tab PO Q4-6H PRN pain #12 tabs 09/29/24 10/14/24 Rx mg tablet pantoprazole 40 mg tablet,delayed 40 mg PO DAILY 10/14/24 10/14/24 History release Allergies Allergy/AdvReac Type Severity Reaction Status Date / Time NSAIDS (Non-Steroidal AdvReac Mild CAN TAKE, Verified 10/14/24 08:15 Anti-Inflamma (NSAIDS BUT TRIES (NON-STEROIDAL ANTI-INFLAMMA) TO AVOID R/T GASTRIC BYPASS Review of Systems Review of Systems ROS: Yes All systems reviewed with the patient and are negative except as otherwise documented Exam Vital Signs (past 8 hours): - 10/14/24 08:08 10/14/24 08:15 10/14/24 08:16 Temperature 98.2 F Pulse Rate 131 H 103 H 122 H Respiratory Rate 23 25 H Blood Pressure 103/61 Pulse Oximetry 98 100 Oxygen Delivery Method Nasal Cannula Nasal Cannula Oxygen Flow Rate 2 2 10/14/24 08:45 10/14/24 08:45 10/14/24 09:00 Temperature Pulse Rate 101 H 97 H Respiratory Rate 14 14 Blood Pressure 112/66 Pulse Oximetry 100 100 Oxygen Delivery Method Oxygen Flow Rate 10/14/24 09:00 10/14/24 09:30 10/14/24 09:39 Temperature 98.5 F Pulse Rate 99 H 94 H Respiratory Rate 24 24 Blood Pressure 110/55 L 112/56 L Pulse Oximetry 100 Oxygen Delivery Method Oxygen Flow Rate 10/14/24 09:39 10/14/24 09:39 10/14/24 09:45 Temperature Pulse Rate 96 H 96 H Respiratory Rate 15 19 Blood Pressure 112/56 L Pulse Oximetry 100 100 Oxygen Delivery Method Oxygen Flow Rate 10/14/24 09:45 10/14/24 09:59 10/14/24 10:00 Temperature 98.6 F 98.6 F Pulse Rate 93 H 96 H Respiratory Rate 19 16 Blood Pressure 103/56 L 94/57 L 107/59 L Pulse Oximetry Oxygen Delivery Method Oxygen Flow Rate 10/14/24 10:00 10/14/24 10:01 10/14/24 10:01 Temperature Pulse Rate 96 H 97 H Respiratory Rate 14 14 Blood Pressure 94/57 L Pulse Oximetry 100 100 Oxygen Delivery Method Oxygen Flow Rate 10/14/24 10:15 10/14/24 10:15 10/14/24 10:30 Temperature Pulse Rate 92 H 93 H Respiratory Rate 14 12 Blood Pressure 106/62 Pulse Oximetry 100 100 Oxygen Delivery Method Oxygen Flow Rate 10/14/24 10:30 10/14/24 10:45 10/14/24 10:45 Temperature Pulse Rate 92 H Respiratory Rate 15 Blood Pressure 107/59 L 103/57 L Pulse Oximetry 100 Oxygen Delivery Method Oxygen Flow Rate 10/14/24 11:00 10/14/24 11:00 10/14/24 11:04 Temperature 98.7 F Pulse Rate 90 90 Respiratory Rate 13 18 Blood Pressure 99/54 L 99/54 L Pulse Oximetry 100 Oxygen Delivery Method Oxygen Flow Rate 10/14/24 11:15 10/14/24 11:15 Temperature Pulse Rate 88 Respiratory Rate 11 L Blood Pressure 101/57 L Pulse Oximetry 100 Oxygen Delivery Method Oxygen Flow Rate Oxygen Delivery Method Nasal Cannula Oxygen Flow Rate 2 Narrative Exam Narrative: GENERAL: This is a thin, frail-appearing patient, pale, appears weak otherwise in no apparent distress. HEAD: Atraumatic. Normocephalic. No temporal or scalp tenderness. EYES: Pupils equal round and reactive. Extraocular motions intact. No scleral icterus. No injection or drainage. ENT: Mucous membranes pink and moist. NECK: Trachea midline. No JVD, bruits or lymphadenopathy. Supple, nontender, no meningeal signs. CARDIOVASCULAR: Regular rate and rhythm without murmurs, gallops, or rubs. RESPIRATORY: Clear to auscultation. GASTROINTESTINAL: Abdomen soft, [id number] right-sided lower abdominal tenderness, no guarding or rebound, nondistended. EXTREMITIES: No clubbing, cyanosis, or edema. BACK: Nontender without deformity or crepitance. No flank tenderness. NEUROLOGIC: Alert, oriented, speech fluent, full upper and lower motor strength, no focal deficits evident. DERMATOLOGIC: No rashes or skin lesions. Objective ECG Impression: Sinus rhythm with premature atrial complexes at 100 beats per minute Incomplete right bundle branch block Left anterior fascicular block Minimal voltage criteria for LVH, may be normal variant ( R in aVL ) Imaging *: Radiologist's impression: 1. Abdomen pelvis CT 10/14/2024: 1. No evidence of acute trauma is seen in abdomen or pelvis. 2. Postsurgical changes in epigastric region and left upper quadrant with grossly intact surgical anastomosis. Suggestion of gastric and proximal small bowel wall thickening concerning for gastroenteritis. No abscess collection. No free fluid or free air. 3. Questionable inflammatory changes adjacent to head and uncinate process of pancreas which may be related to adjacent inflammation in the stomach and proximal small bowel loops. Clinical correlation is recommended to rule out underlying pancreatitis. No peripancreatic fluid collection. 4. Other chronic changes as above. 2. Head CT 10/14/2024: No acute intracranial pathology. 3. Cervical spine CT 10/14/2024: 1. No displaced fracture or traumatic subluxation. 2. Stable post ACDF changes in mid to lower cervical spine with stable cervical spine alignment. Spondylitic changes throughout rest of the cervical spine unchanged from prior study. 4. Chest CTA 10/14/2024: 1. No pulmonary embolus. No thoracic aortic aneurysm or gross dissection. 2. No acute cardiopulmonary process. 3. Chronic findings not significantly changed from prior studies. Labs 10/14/24 08:20 10/14/24 08:20 Labs: Laboratory Results - last 24 hr 10/14/24 08:20 WBC 15.6 H RBC 2.94 L Hgb 7.4 L Hct 23.4 L MCV 79.5 L MCH 25.1 L MCHC 31.6 RDW 18.4 H Plt Count 344 Neut % (Auto) Not Reportable Lymph % (Auto) Not Reportable [place] % (Auto) Not Reportable Eos % (Auto) Not Reportable Baso % (Auto) Not Reportable Lymph # (Auto) Not Reportable [place] # (Auto) Not Reportable Baso # (Auto) Not Reportable Total Counted 100 Seg Neutrophils % 88.0 H Band Neutrophils % 6.0 Lymphocytes % (Manual) 4.0 L Monocytes % (Manual) 2.0 Neutrophils # (Manual) 36325 H Nucleated RBCs 3 H RBC Morphology See below Anisocytosis 1+ H Ovalocytes 1+ H PT 14.7 H INR 1.3 APTT 24 L Sodium 135 L Potassium 4.0 Chloride 100 Carbon Dioxide 19 L BUN 36 H Creatinine 1.05 Estimated GFR > 60 BUN/Creatinine Ratio 34.3 H Glucose 254 H D Calcium 8.2 L Magnesium 1.6 Total Bilirubin 0.9 AST 40 ALT 96 H Alkaline Phosphatase 90 Troponin I < 0.012 Total Protein 6.0 L Albumin 3.2 L Globulin 2.8 Albumin/Globulin Ratio 1.1 Lipase 28 Ethyl Alcohol < 10 Blood Type O Positive Antibody Screen Negative Crossmatch See Detail Assessment & Plan Assessment & Plan narrative: 1. GI bleed, likely upper source - transfuse 1 unit PRBC in ER given evidence of active bleeding - IV PPI therapy - NPO - consult surgery for upper endoscopy - monitor serial hematocrits 2. Acute on Chronic microcytic anemia, symptomatic with syncope - transfuse - IV hydration - serial hematocrits # DM2 - SS insulin - hold metformin for now with mild acidosis on labs, FS ACHS # HTN - hold home BP meds for now. # depression - continue prozac and olanzapine when taking po's Code status is full code. DVT prophylaxis with SCDs Proxy is spouse Cecy. Dipso: ICU inpatient. Quality MIPS - Admit I confirm the patient?s Advance Care Plan is present, Code status is documented, Surrogate decision maker is in patient?s record [If Yes, STOP here]: Yes MIPS - Meds 'Current medications' to include all prescriptions, [id number] products, herbals, cannabis/cannabidiol products, and vitamin/mineral/dietary (nutritional) supplements. I have utilized all available resources to obtain, update, or review the patient?s current medications. 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
--- NOTE | 2024-10-14 12:30 | PM.HP.IH.1 ---
History of Present Illness History of Present Illness Date Patient Seen: 10/14/24 Time Patient Seen: 12:30 Date of Onset of Symptoms: 10/14/24 Chief complaint: Syncope, hematochezia Narrative: Patient is a 69-year-old white male admitted through the emergency room in ICU. Patient states that he had black rectal bleeding at approximately 6:00 a.m. 10/14/2024 and had a syncopal episode at approximately 7:00 a.m.. Patient denies any pain sad nausea without any vomiting. Patient has had a previous history of a gastric bypass 2003 patient had a gastric perforation in 2018 underwent exploratory laparotomy with repair. Patient had a recent EGD colonoscopy done with Dr. Ferrera 07/21/2024 which showed a nonbleeding anastomotic channel ulcer. Patient is taking pantoprazole but nothing else. Patient is admitting laboratory shows WBC of 15.6 hemoglobin is 7.4 hematocrit is 23.4 platelets are 344,000 PT is 14.7 PTT is 24 sodium is 135 potassium 4.0 chloride 100 bicarb is 19 BUN of 36 creatinine is 1.07 random blood sugar is 254 lipase is 28 total bilirubin is 0.9 AST is 40 ALT is 96 alkaline phosphatase is 90. Patient underwent a CT scan which shows an absent gallbladder normal appendix previous gastric bypass with considerable scarring around the head of the pancreas but no signs of free air or gross masses. Patient had back surgery with rods. Patient also had a CTA of the chest was negative for PE. Patient is currently receiving 1 unit of packed RBCs. I was asked to see the patient for surgical evaluation. Allergies: NSAIDs Medications: Tylenol, ferrous sulfate, hydrocodone, metformin, multiple vitamins, nitroglycerin, pantoprazole, Tums Past medical history: Corrective lenses, hypertension, hyperlipidemia, GERD with history of peptic ulcer disease and gastric perforation, non insulin-dependent diabetes mellitus, history of colon polyps, degenerative joint disease, nephrolithiasis. Patient denies any other heart lungs digestive musculoskeletal neurological seizures or psychiatric problems risks are infectious diseases HIV or AIDS. Past surgical history: Tonsils and adenoids, C-spine surgery, cholecystectomy, vasectomy, back surgery, gastric bypass in 2003, exploratory laparotomy for a perforated gastric ulcer with primary closure 2017, EGD colonoscopy 07/21/2024 was noted to have a small channel ulcer nonbleeding normal colonoscopy. Social history: History of tobacco abuse 1 pack per day times 57 years. Three years ago, denies any alcohol or recreational drug usage. Patient is 5 ft 660 lb, temperature is 98.7? pulse 88 respirations 11 BP is 101/57 Head is normocephalic eyes PERRLA EOMI is intact nares are clear some midline EACs and pinnae are unremarkable oropharyngeal cavity is in moderate repair. Heart regular rate and rhythm without murmurs. Lungs are diminished in the bases poor inspiratory and expiratory effort poor chest wall motion noted. Abdomen is soft with multiple surgical scars good active bowel sounds no masses or peritoneal signs are elicited no signs of incisional hernias. Musculoskeletal moderate muscle tone and strengthening bilaterally no gross deficits are elicited. Impression: Upper GI bleed with black melanotic stools with syncope acute blood loss anemia Hemoglobin is 7.4 hematocrit was 23.4 Hypertension, Hyperlipidemia History of peptic ulcer disease with perforation and ulcers Degenerative joint disease History of tobacco abuse 1 pack per day times 57 years. Three years ago Plan: Discussed with patient the findings need for EGD with possible control of upper GI bleeding with MAC. Procedure risks and complications were fully explained including risk for cardiopulmonary depression infection bleeding bowel injury possible need for surgery patient understands and consents all questions were answered patient's satisfaction we will continue with blood transfusion proceed to endoscopy this date for control of possible upper GI bleed. PENDING SALE TO [facility] Medical History Degenerative disc disease GERD (gastroesophageal reflux disease) History of bleeding ulcers HNP (herniated nucleus pulposus), lumbar HTN (hypertension) Hypertriglyceridemia Nephrolithiasis Non-insulin dependent type 2 diabetes mellitus Surgical History History of cervical spinal surgery History of cholecystectomy History of colonoscopy History of gastric bypass History of vasectomy Status post lumbar surgery Family History Mother No known health problems Father No known health problems Social History household members: spouse and family alcohol intake: former Meds Home Medications and Allergies Home Medications ?Medication ?Instructions ?Recorded ?Confirmed ?Type multivitamin 1 tab PO DAILY 09/10/18 10/14/24 History acetaminophen 325 mg tablet 650 mg (2 x 325 mg) PO Q6H PRN 01/18/23 10/14/24 Rx Fever/Mild Pain (1-3) #50 tabs nitroglycerin 0.4 mg sublingual 0.4 mg sublingual [id number] PRN 01/18/23 10/14/24 Rx tablet (Nitrostat) Chest Pain #30 tabs metformin 1,000 mg tablet 500 mg PO BID 09/15/23 10/14/24 History ferrous sulfate 325 mg (65 mg 325 mg PO DAILY #30 tabs 04/28/24 10/14/24 Rx iron) tablet hydrocodone 5 mg-acetaminophen 325 1 tab PO Q4-6H PRN pain #12 tabs 09/29/24 10/14/24 Rx mg tablet pantoprazole 40 mg tablet,delayed 40 mg PO DAILY 10/14/24 10/14/24 History release Allergies Allergy/AdvReac Type Severity Reaction Status Date / Time NSAIDS (Non-Steroidal AdvReac Mild CAN TAKE, Verified 10/14/24 08:15 Anti-Inflamma (NSAIDS BUT TRIES (NON-STEROIDAL ANTI-INFLAMMA) TO AVOID R/T GASTRIC BYPASS Exam Vital Signs (past 8 hours): - 10/14/24 08:08 10/14/24 08:15 10/14/24 08:16 Temperature 98.2 F Pulse Rate 131 H 103 H 122 H Respiratory Rate 23 25 H Blood Pressure 103/61 Pulse Oximetry 98 100 Oxygen Delivery Method Nasal Cannula Nasal Cannula Oxygen Flow Rate 2 2 10/14/24 08:45 10/14/24 08:45 10/14/24 09:00 Temperature Pulse Rate 101 H 97 H Respiratory Rate 14 14 Blood Pressure 112/66 Pulse Oximetry 100 100 Oxygen Delivery Method Oxygen Flow Rate 10/14/24 09:00 10/14/24 09:30 10/14/24 09:39 Temperature 98.5 F Pulse Rate 99 H 94 H Respiratory Rate 24 24 Blood Pressure 110/55 L 112/56 L Pulse Oximetry 100 Oxygen Delivery Method Oxygen Flow Rate 10/14/24 09:39 10/14/24 09:39 10/14/24 09:45 Temperature Pulse Rate 96 H 96 H Respiratory Rate 15 19 Blood Pressure 112/56 L Pulse Oximetry 100 100 Oxygen Delivery Method Oxygen Flow Rate 10/14/24 09:45 10/14/24 09:59 10/14/24 10:00 Temperature 98.6 F 98.6 F Pulse Rate 93 H 96 H Respiratory Rate 19 16 Blood Pressure 103/56 L 94/57 L 107/59 L Pulse Oximetry Oxygen Delivery Method Oxygen Flow Rate 10/14/24 10:00 10/14/24 10:01 10/14/24 10:01 Temperature Pulse Rate 96 H 97 H Respiratory Rate 14 14 Blood Pressure 94/57 L Pulse Oximetry 100 100 Oxygen Delivery Method Oxygen Flow Rate 10/14/24 10:15 10/14/24 10:15 10/14/24 10:30 Temperature Pulse Rate 92 H 93 H Respiratory Rate 14 12 Blood Pressure 106/62 Pulse Oximetry 100 100 Oxygen Delivery Method Oxygen Flow Rate 10/14/24 10:30 10/14/24 10:45 10/14/24 10:45 Temperature Pulse Rate 92 H Respiratory Rate 15 Blood Pressure 107/59 L 103/57 L Pulse Oximetry 100 Oxygen Delivery Method Oxygen Flow Rate 10/14/24 11:00 10/14/24 11:00 10/14/24 11:04 Temperature 98.7 F Pulse Rate 90 90 Respiratory Rate 13 18 Blood Pressure 99/54 L 99/54 L Pulse Oximetry 100 Oxygen Delivery Method Oxygen Flow Rate 10/14/24 11:15 10/14/24 11:15 Temperature Pulse Rate 88 Respiratory Rate 11 L Blood Pressure 101/57 L Pulse Oximetry 100 Oxygen Delivery Method Oxygen Flow Rate Oxygen Delivery Method Nasal Cannula Oxygen Flow Rate 2 Objective Labs 10/14/24 08:20 10/14/24 08:20 Labs: Laboratory Results - last 24 hr 10/14/24 08:20 WBC 15.6 H RBC 2.94 L Hgb 7.4 L Hct 23.4 L MCV 79.5 L MCH 25.1 L MCHC 31.6 RDW 18.4 H Plt Count 344 Neut % (Auto) Not Reportable Lymph % (Auto) Not Reportable [place] % (Auto) Not Reportable Eos % (Auto) Not Reportable Baso % (Auto) Not Reportable Lymph # (Auto) Not Reportable [place] # (Auto) Not Reportable Baso # (Auto) Not Reportable Total Counted 100 Seg Neutrophils % 88.0 H Band Neutrophils % 6.0 Lymphocytes % (Manual) 4.0 L Monocytes % (Manual) 2.0 Neutrophils # (Manual) 32157 H Nucleated RBCs 3 H RBC Morphology See below Anisocytosis 1+ H Ovalocytes 1+ H PT 14.7 H INR 1.3 APTT 24 L Sodium 135 L Potassium 4.0 Chloride 100 Carbon Dioxide 19 L BUN 36 H Creatinine 1.05 Estimated GFR > 60 BUN/Creatinine Ratio 34.3 H Glucose 254 H D Calcium 8.2 L Magnesium 1.6 Total Bilirubin 0.9 AST 40 ALT 96 H Alkaline Phosphatase 90 Troponin I < 0.012 Total Protein 6.0 L Albumin 3.2 L Globulin 2.8 Albumin/Globulin Ratio 1.1 Lipase 28 Ethyl Alcohol < 10 Blood Type O Positive Antibody Screen Negative Crossmatch See Detail Assessment & Plan Time-Based Coding :: [TOTAL MINUTES] spent with patient and on the chart (including review of chart, obtaining history, exam, reviewing outside data, placing orders, documenting exam and treatment plan, and counseling patient) on [DATE]. 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
[2024-10-14] MEDS: LACTATED RINGERS 1,000 ML 42 ML IV (13:18)
--- NOTE | 2024-10-14 14:01 | P.OP.EGD_ITS ---
Operative Date/Time/Diagnoses Date of procedure: 10/14/24 Time of procedure: 12:30 Pre-op diagnosis: Upper GI bleed with acute blood loss anemia black stools rule out peptic ulcer disease Post-op diagnosis: other (Anastomotic ulcer nonbleeding) Procedure & Clinicians Study performed: EGD with MAC biopsy of ulcer bed Same procedure(s) as scheduled: Yes Surgeon: Richie Rodrigues Anesthesia Type: MAC +/- Procedure Notes Procedure in detail: Patient was seen in consultation preoperatively in ICU was at admit from the ER. Patient had an episode of black melanotic stools followed by a syncopal episode. Patient had acute blood loss anemia need for transfusions. Patient had a previous history of peptic ulcer disease. Discussed with patient the findings and the need for EGD with MAC and control of upper GI bleeding. Procedure risks and complications were fully explained including risk for cardiopulmonary depression infection bleeding and bowel injury possible need for open surgery. Patient understood and consented. Patient had been NPO since admission. Was brought to endoscopy suite was given continuous pulse oximetry nasal cannula oxygen and EKG monitoring. In the supine upright position patient was given sedation as per anesthesia oral bite block was carefully placed taking great care to avoid any injury to the oropharyngeal soft tissue. Time-out was performed procedure patient and surgeon all in the room were in agreement. Patient had a video EGD scope was then lubricated with [place] jelly advanced through the oropharyngeal cavity vocal cords are noted to have good motion. Scope was advanced to the esophagus with normal anatomical landmarks. Very small gastric pouch was noted with some blood in it this was suctioned clear and irrigated out the anastomosis was noted and some outlet ulcerations were noted a large clot was noted overlying the area of the afferent limb and this was removed no signs of active bleeding was noted. The scope was advanced a generous distance downstream through the jejunum no other findings were noted scope was slowly withdrawn washing all materials off the au and aspirating all puddles. Patient again was noted to have ulcerations these were biopsied quite hard and firm no active bleeding. His girlfriend turned back to the gastric lumen which had a small pouch. Normal GE junction all insufflated air was aspirated and the scope was removed back through the esophagus with again normal anatomic landm arks. Oropharyngeal cavity was suctioned clear scope was removed as was bite block all dentition was noted to be intact. Patient tolerated procedure well without incident or complication patient was returned to recovery room in satisfactory condition. We will continue with transfusions as necessary Protonix IV Mylanta and also Carafate. All questions were answered to patient's satisfaction. Findings: gastric ulcer Post-procedure Recommendations: EGD in 1 year
[2024-10-14] MEDS: DEXTROSE 5%-0.45% NS 1,000 ML 100 ML IV (14:17)
[2024-10-14 15:24] LABS: MRSA (Nasal) PCR NOT DETECTED (Not Detect)
[2024-10-14] MEDS: HYDROMORPHONE 1 MG INJ IV ×4 (15:50→22:39)
[2024-10-14 17:06] LABS: Add Manual Diff / Slide Review NO; Hematocrit 26.0 % (41-53); Hemoglobin 8.7 g/dL (13.5-17.5); Lymphocytes Absolute Auto 1600 /uL (1100-4500); Mean Corpuscular HGB Conc 33.6 % (30-36); Mean Corpuscular Hemoglobin 27.1 PG (26-34); Mean Corpuscular Volume 80.6 fL (80-100); Platelet Count 229 X10^3/uL (150-400)
[2024-10-14] MEDS: ONDANSETRON 4 MG/2 ML INJ IV (18:00)
[2024-10-15] VITALS (54 sets, daily range): BP systolic 106–163; BP diastolic 56–94; PULSE 64–117; RESP 5–23; TEMP 35.7; O2SAT 52–100
[2024-10-15] MEDS: HYDROMORPHONE 1 MG INJ IV ×12 (00:31→19:37)
[2024-10-15] MEDS: FAMOTIDINE 20 MG/2 ML VIAL 40 MG IV (01:51)
[2024-10-15 05:14] LABS: Hemoglobin A1C% w Est Avg Glu 6.5 % (4.0-6.0)
[2024-10-15 05:16] LABS: Blood Urea Nitrogen 28 mg/dL (9-20); Calcium 8.1 mg/dL (8.4-10.2); Carbon Dioxide 29 mmol/L (22-32); Chloride 100 mmol/L (98-107); Estimated Glomerular Filt Rate > 60 mL/min (>60); Glucose 152 mg/dL (70-99); HEMOLYSIS < 15 (0-50); Potassium 3.5 mmol/L (3.4-5.1); Sodium 135 mmol/L (137-145)
[2024-10-15] MEDS: INSULIN LISPRO 100 UNIT/ML 3ML VIAL SUBCUT ×2 (06:09→12:17)
[2024-10-15] MEDS: PANTOPRAZOLE 40 MG VIAL IV ×2 (08:10→21:21)
[2024-10-15] MEDS: DEXTROSE 5%-0.45% NS 1,000 ML 100 ML IV (08:10)
[2024-10-15] MEDS: ONDANSETRON 4 MG/2 ML INJ IV (08:21)
--- NOTE | 2024-10-15 08:47 | P.PN_ITS ---
Subjective Subjective Date Patient Seen: 10/14/24 Time Patient Seen: 08:44 Interval history: Patient is resting comfortably in bed postop day 1. EGD or upper GI bleed with acute blood loss anemia. Patient states he is having abdominal pain which he states is more severe than when he came in but no gross peritoneal signs are elicited. Patient did have 1 small maroon stool he has had no further nausea or vomiting. Morning CBC is pending sodium is 135 potassium 3.5 chloride 100 bicarb is 29 BUN 28 creatinine of 0.76 patient's random blood sugar is 152 hemoglobin A1c is 6.5. Patient is admission H and H was 7.4 and 23.4 patient did receive 2 units of packed RBCs. Vitals: Temperature 96.2? pulse 74 respirations 13 BP is 133/71 Heart regular rate and rhythm without murmurs lungs are clear but diminished in the bases poor inspiratory and expiratory effort poor chest wall motion noted. Abdomen is soft nondistended with hypoactive bowel sounds patient has some right lower quadrant tenderness but no rebound or guarding no masses or peritoneal signs previous surgical incisions are noted no signs of incisional hernias. Impression: Postop day 1. EGD with anastomotic ulcer from previous gastric bypass no active bleeding History of previous peptic ulcer disease with perforation 8 years ago with liver abscess GERD Hypertension [id number] diabetes mellitus Plan: Discussed with patient the findings we will go ahead and repeat CT scan the abdomen of the patient to make sure there is no signs of perforation or leak if none would start patient on diet. All questions were answered the patient's satisfaction we will follow patient closely. Exam Vital Signs (past 8 hours): - 10/15/24 01:00 10/15/24 01:00 10/15/24 01:30 Temperature Pulse Rate 73 67 Respiratory Rate 8 L 8 L Blood Pressure 124/79 10/15/24 02:00 10/15/24 02:00 10/15/24 02:00 Temperature Pulse Rate 70 70 Respiratory Rate 8 L 8 L Blood Pressure 130/64 130/64 10/15/24 02:30 10/15/24 03:00 10/15/24 03:02 Temperature Pulse Rate 70 82 Respiratory Rate 10 L 12 Blood Pressure 129/61 10/15/24 03:02 10/15/24 03:30 10/15/24 04:00 Temperature Pulse Rate 81 74 78 Respiratory Rate 18 5 L 14 Blood Pressure 121/78 08/02/25 04:30 10/15/24 04:30 10/15/24 05:00 Temperature Pulse Rate 72 75 Respiratory Rate 7 L 7 L Blood Pressure 121/78 10/15/24 05:01 10/15/24 05:01 10/15/24 05:09 Temperature 96.2 F L Pulse Rate 75 Respiratory Rate 10 L Blood Pressure 117/60 10/15/24 05:30 10/15/24 06:00 Temperature Pulse Rate 71 74 Respiratory Rate 10 L 13 Blood Pressure 133/71 Oxygen Delivery Method Room Air Oxygen Flow Rate 2 Objective Labs 10/14/24 16:58 10/15/24 04:00 Labs: Laboratory Results - last 24 hr 10/14/24 10/14/24 10/14/24 08:20 11:56 13:08 WBC RBC Hgb Hct MCV MCH MCHC RDW Plt Count Neut % (Auto) Lymph % (Auto) [place] % (Auto) Eos % (Auto) Baso % (Auto) Neut # (Auto) Lymph # (Auto) [place] # (Auto) Eos # (Auto) Baso # (Auto) Total Counted 100 Seg Neutrophils % 88.0 H Band Neutrophils % 6.0 Lymphocytes % (Manual) 4.0 L Monocytes % (Manual) 2.0 Neutrophils # (Manual) 69731 H Nucleated RBCs 3 H RBC Morphology See below Anisocytosis 1+ H Ovalocytes 1+ H PT 14.7 H INR 1.3 APTT 24 L Sodium 135 L Potassium 4.0 Chloride 100 Carbon Dioxide 19 L BUN 36 H Creatinine 1.05 Estimated GFR > 60 BUN/Creatinine Ratio 34.3 H Glucose 254 H D POC Whole Bld Glucose 208 H Hemoglobin A1c Calcium 8.2 L Magnesium 1.6 Total Bilirubin 0.9 AST 40 ALT 96 H Alkaline Phosphatase 90 Troponin I < 0.012 Total Protein 6.0 L Albumin 3.2 L Globulin 2.8 Albumin/Globulin Ratio 1.1 Lipase 28 Nasal Screen MRSA (PCR) Not detected Ethyl Alcohol < 10 Blood Type O Positive Antibody Screen Negative Crossmatch See Detail 10/14/24 10/14/24 10/15/24 16:58 23:09 04:00 WBC 11.4 H RBC 3.22 L Hgb 8.7 L Hct 26.0 L MCV 80.6 MCH 27.1 MCHC 33.6 RDW 19.1 H Plt Count 229 Neut % (Auto) 80.4 H Lymph % (Auto) 14.2 L [place] % (Auto) 5.3 Eos % (Auto) 0.0 L Baso % (Auto) 0.1 Neut # (Auto) 9200 H Lymph # (Auto) 1600 [place] # (Auto) 600 Eos # (Auto) 0 Baso # (Auto) 0 Total Counted Seg Neutrophils % Band Neutrophils % Lymphocytes % (Manual) Monocytes % (Manual) Neutrophils # (Manual) Nucleated RBCs RBC Morphology Anisocytosis Ovalocytes PT INR APTT Sodium 135 L Potassium 3.5 Chloride 100 Carbon Dioxide 29 BUN 28 H Creatinine 0.76 Estimated GFR > 60 BUN/Creatinine Ratio 36.8 H Glucose 152 H D POC Whole Bld Glucose 149 H Hemoglobin A1c 6.5 H Calcium 8.1 L Magnesium Total Bilirubin AST ALT Alkaline Phosphatase Troponin I Total Protein Albumin Globulin Albumin/Globulin Ratio Lipase Nasal Screen MRSA (PCR) Ethyl Alcohol Blood Type Antibody Screen Crossmatch 10/15/24 05:11 WBC RBC Hgb Hct MCV MCH MCHC RDW Plt Count Neut % (Auto) Lymph % (Auto) [place] % (Auto) Eos % (Auto) Baso % (Auto) Neut # (Auto) Lymph # (Auto) [place] # (Auto) Eos # (Auto) Baso # (Auto) Total Counted Seg Neutrophils % Band Neutrophils % Lymphocytes % (Manual) Monocytes % (Manual) Neutrophils # (Manual) Nucleated RBCs RBC Morphology Anisocytosis Ovalocytes PT INR APTT Sodium Potassium Chloride Carbon Dioxide BUN Creatinine Estimated GFR BUN/Creatinine Ratio Glucose POC Whole Bld Glucose 157 H Hemoglobin A1c Calcium Magnesium Total Bilirubin AST ALT Alkaline Phosphatase Troponin I Total Protein Albumin Globulin Albumin/Globulin Ratio Lipase Nasal Screen MRSA (PCR) Ethyl Alcohol Blood Type Antibody Screen Crossmatch [facility] Medical History Degenerative disc disease GERD (gastroesophageal reflux disease) History of bleeding ulcers HNP (herniated nucleus pulposus), lumbar HTN (hypertension) Hypertriglyceridemia Nephrolithiasis Non-insulin dependent type 2 diabetes mellitus Surgical History History of cervical spinal surgery History of cholecystectomy History of colonoscopy History of gastric bypass History of vasectomy Status post lumbar surgery Family History Mother No known health problems Father No known health problems Social History household members: spouse and family alcohol intake: former Assessment & Plan Post-op Postoperative Procedures: Procedures Operation Date: 10/14/24 13:15 Actual Procedure Side Surgeon p Esophagogastroduodenoscopy with biopsy Richie Rodrigues DO
--- NOTE | 2024-10-15 08:55 | DI.CT.S_ITS ---
PROCEDURE: CT ABDOMEN PELVIS W CON INDICATIONS: ABD pain TECHNIQUE: After the administration of intravenous contrast, axial sections acquired from the lung bases to the pubic symphysis. Coronal and sagittal reformats were performed. For radiation dose reduction, the following was used: automated exposure control, adjustment of mA and/or kV according to patient size. COMPARISON: Merged With [facility], CT, CT ABDOMEN PELVIS W CON, 10/14/2024, 8:34. Merged With [facility], CT, CT ABDOMEN PELVIS W CON, 09/29/2024, 1:24. Merged With [facility], CT, CT ANGIO CHEST PE PROTOCOL, 10/14/2024, 8:34. FINDINGS: Image quality: Diagnostic. Lower Chest: There is a small to moderate hiatal hernia. Moderate coronary artery calcification is seen. ABDOMEN: Liver: No solid mass. Gallbladder: Removed. Biliary ducts: No biliary dilation. Pancreas: Mild inflammatory change can be seen adjacent to the head of the pancreas. No ductal dilation. Spleen: Size is within normal limits. Adrenal Glands: No adrenal nodules. Kidneys and Ureters: No hydronephrosis. No solid mass. No complex renal cystic lesion which requires follow up. At the inferior pole of the right kidney, there is a nonobstructing stone seen measuring 13 mm and 1200 Hounsfield units. Bowel and peritoneum: Bariatric surgery is seen. There is generalized wall thickening seen involving the gastric remnant and the proximal small bowel. Surrounding inflammatory change can be seen. No findings of perforation or abscess can be seen. No dilated loops of small bowel are seen. The colon is relatively decompressed. Colonic diverticulosis is seen, without findings of active diverticulitis. A normal appendix is noted. Ventral Wall: Within the inferior abdominal wall anteriorly, there is a hernia seen, containing nondilated small bowel. This is clearly worse on the current study than on the prior. Abdominal Nodes: No retroperitoneal or mesenteric adenopathy by size criteria. Vessels: Aorta and inferior vena cava are normal in size. Atherosclerotic calcification is noted. PELVIS: Pelvic Organs: Unremarkable. Bladder: No bladder wall thickening, accounting for underdistention. Pelvic Nodes: No enlarged lymph nodes. Miscellaneous: Mild bilateral fat containing inguinal hernias are seen. Bones: No aggressive osseous abnormality. Lumbosacral fixation hardware is seen. Multiple levels of degenerative change can be seen. IMPRESSION: Anterior abdominal wall hernia seen inferiorly, containing nondilated small bowel. This hernia is clearly worse on the current study than on the recent prior. Prior bariatric surgery, with generalized inflammatory change, yet without findings of perforation or abscess. Inflammatory change seen adjacent to the head of the pancreas, as before. Please consider pancreatitis. Additional findings: Moderate coronary artery calcification Small to moderate hiatal hernia Cholecystectomy Nonobstructing right-sided kidney stone Diverticulosis, without active diverticulitis Lumbosacral postoperative change Mild bilateral fat containing inguinal hernias Dictated by: Spenser Chowdhury M.D. on 10/15/2024 at 10:36 Approved by: Spenser Chowdhury M.D. on 10/15/2024 at 10:41
[2024-10-15 10:23] LABS: Add Manual Diff / Slide Review NO; Hematocrit 25.8 % (41-53); Hemoglobin 8.6 g/dL (13.5-17.5); Lymphocytes Absolute Auto 1500 /uL (1100-4500); Mean Corpuscular HGB Conc 33.2 % (30-36); Mean Corpuscular Hemoglobin 27.0 PG (26-34); Mean Corpuscular Volume 81.2 fL (80-100); Platelet Count 242 X10^3/uL (150-400)
--- NOTE | 2024-10-15 10:58 | P.PN_ITS ---
Subjective Subjective Date Patient Seen: 10/15/24 Time Patient Seen: 11:00 Interval history: Patient has returned from CT scan shows no new changes other than he has a hypogastric hernia with a large loop of small bowel protruding through this previous CT scan did not show this discussed with patient this was easily reduced the defect is approximately 2 fingers in diameter but he states his abdominal pain has resolved. Patient is also noted to have a large single kidney stone within the kidney. Patient will be started on diet and will advance slowly discuss with patient surgical repair of the hernia once he has gotten through this GI bleeding episode this may be done outpatient. Procedure risks and complications were fully explained to patient he understands. All questions were answered patient's satisfaction. Exam Vital Signs (past 8 hours): - 10/15/24 03:00 10/15/24 03:02 10/15/24 03:02 Temperature Pulse Rate 82 81 Respiratory Rate 12 18 Blood Pressure 129/61 10/15/24 03:30 10/15/24 04:00 10/15/24 04:30 Temperature Pulse Rate 74 78 72 Respiratory Rate 5 L 14 7 L Blood Pressure 121/78 10/15/24 04:30 10/15/24 05:00 10/15/24 05:01 Temperature Pulse Rate 75 Respiratory Rate 7 L Blood Pressure 121/78 117/60 10/15/24 05:01 10/15/24 05:09 10/15/24 05:30 Temperature 96.2 F L Pulse Rate 75 71 Respiratory Rate 10 L 10 L Blood Pressure 10/15/24 06:00 10/15/24 06:10 10/15/24 06:10 Temperature Pulse Rate 74 75 Respiratory Rate 13 9 L Blood Pressure 133/71 133/71 10/15/24 06:30 10/15/24 07:00 10/15/24 07:00 Temperature Pulse Rate 75 73 Respiratory Rate 9 L 10 L Blood Pressure 138/73 10/15/24 07:30 10/15/24 08:00 10/15/24 08:00 Temperature Pulse Rate 68 73 Respiratory Rate 10 L 7 L Blood Pressure 118/57 L 10/15/24 08:30 10/15/24 09:00 10/15/24 09:00 Temperature Pulse Rate 73 75 Respiratory Rate 8 L 12 Blood Pressure 107/58 L 10/15/24 09:30 10/15/24 10:00 10/15/24 10:00 Temperature Pulse Rate 72 79 Respiratory Rate 11 L 10 L Blood Pressure 132/71 Oxygen Delivery Method Room Air Oxygen Flow Rate 2 Objective Labs 10/15/24 09:39 10/15/24 04:00 Labs: Laboratory Results - last 24 hr 10/14/24 10/14/24 10/14/24 08:20 11:56 13:08 WBC RBC Hgb Hct MCV MCH MCHC RDW Plt Count Neut % (Auto) Lymph % (Auto) [place] % (Auto) Eos % (Auto) Baso % (Auto) Neut # (Auto) Lymph # (Auto) [place] # (Auto) Eos # (Auto) Baso # (Auto) Sodium Potassium Chloride Carbon Dioxide BUN Creatinine Estimated GFR BUN/Creatinine Ratio Glucose POC Whole Bld Glucose 208 H Hemoglobin A1c Calcium Nasal Screen MRSA (PCR) Not detected Crossmatch See Detail 10/14/24 10/14/24 10/15/24 16:58 23:09 04:00 WBC 11.4 H RBC 3.22 L Hgb 8.7 L Hct 26.0 L MCV 80.6 MCH 27.1 MCHC 33.6 RDW 19.1 H Plt Count 229 Neut % (Auto) 80.4 H Lymph % (Auto) 14.2 L [place] % (Auto) 5.3 Eos % (Auto) 0.0 L Baso % (Auto) 0.1 Neut # (Auto) 9200 H Lymph # (Auto) 1600 [place] # (Auto) 600 Eos # (Auto) 0 Baso # (Auto) 0 Sodium 135 L Potassium 3.5 Chloride 100 Carbon Dioxide 29 BUN 28 H Creatinine 0.76 Estimated GFR > 60 BUN/Creatinine Ratio 36.8 H Glucose 152 H D POC Whole Bld Glucose 149 H Hemoglobin A1c 6.5 H Calcium 8.1 L Nasal Screen MRSA (PCR) Crossmatch 10/15/24 10/15/24 05:11 09:39 WBC 10.3 RBC 3.18 L Hgb 8.6 L Hct 25.8 L MCV 81.2 MCH 27.0 MCHC 33.2 RDW 18.9 H Plt Count 242 Neut % (Auto) 78.2 H Lymph % (Auto) 14.9 L [place] % (Auto) 6.6 Eos % (Auto) 0.3 L Baso % (Auto) 0.0 Neut # (Auto) 8000 H Lymph # (Auto) 1500 [place] # (Auto) 700 Eos # (Auto) 0 Baso # (Auto) 0 Sodium Potassium Chloride Carbon Dioxide BUN Creatinine Estimated GFR BUN/Creatinine Ratio Glucose POC Whole Bld Glucose 157 H Hemoglobin A1c Calcium Nasal Screen MRSA (PCR) Crossmatch [facility] Medical History Degenerative disc disease GERD (gastroesophageal reflux disease) History of bleeding ulcers HNP (herniated nucleus pulposus), lumbar HTN (hypertension) Hypertriglyceridemia Nephrolithiasis Non-insulin dependent type 2 diabetes mellitus Surgical History History of cervical spinal surgery History of cholecystectomy History of colonoscopy History of gastric bypass History of vasectomy Status post lumbar surgery Family History Mother No known health problems Father No known health problems Social History household members: spouse and family alcohol intake: former Assessment & Plan Time-Based Coding :: [TOTAL MINUTES] spent with patient and on the chart (including review of chart, obtaining history, exam, reviewing outside data, placing orders, documenting exam and treatment plan, and counseling patient) on [DATE]. [employer] Document charge(s): Yes
--- NOTE | 2024-10-15 11:42 | P.PN_ITS ---
Subjective Subjective Date Patient Seen: 10/15/24 Time Patient Seen: 08:02 Interval history: Chief complaint: Syncope, hematochezia Narrative: 69-year-old man under the primary care of Dr. Bebo Wilson reports 2 weeks of crampy abdominal pain, decreased to no appetite, anorexia, 20 lb weight loss and a syncopal episode this morning while walking down stairs, with sudden onset of dark red hematochezia. He was walking down stairs and on the last step fell, denying injuries, reporting nausea but no vomiting or hematemesis. Denies NSAID or aspirin use. He had a nonbleeding marginal ulcer near the gastrojejunal anastomosis of prior gastric bypass on EGD on 07/21/2024, and a normal colonoscopy at that time. His hematocrit was 23.4% on admission, down from 34.6% on 10/05/2024 when he presented to the emergency department with ongoing crampy abdominal pain. On chart review this has been going on for considerably longer but he states it is most prominent in the past 2 weeks. He is accompanied by his Cecy. He notes mild headache but denies other discomfort at this point. 10/15: EGD yesterday showed nonbleeding circumferential pyloric channel ulcerations. He is on pantoprazole 40 mg IV b.i.d. plus sucralfate 4 times daily. The patient reports persistent abdominal pain today. He underwent a CT showing an infraumbilical hernia. This was reduced and patient states pain is much better. Exam Vital Signs (past 8 hours): - 10/15/24 04:00 10/15/24 04:30 10/15/24 04:30 Temperature Pulse Rate 78 72 Respiratory Rate 14 7 L Blood Pressure 121/78 121/78 10/15/24 05:00 10/15/24 05:01 10/15/24 05:01 Temperature Pulse Rate 75 75 Respiratory Rate 7 L 10 L Blood Pressure 117/60 10/15/24 05:09 10/15/24 05:30 10/15/24 06:00 Temperature 96.2 F L Pulse Rate 71 74 Respiratory Rate 10 L 13 Blood Pressure 133/71 10/15/24 06:10 10/15/24 06:10 10/15/24 06:30 Temperature Pulse Rate 75 75 Respiratory Rate 9 L 9 L Blood Pressure 133/71 10/15/24 07:00 08/02/25 07:00 10/15/24 07:30 Temperature Pulse Rate 73 68 Respiratory Rate 10 L 10 L Blood Pressure 138/73 10/15/24 08:00 10/15/24 08:00 10/15/24 08:30 Temperature Pulse Rate 73 73 Respiratory Rate 7 L 8 L Blood Pressure 118/57 L 10/15/24 09:00 10/15/24 09:00 10/15/24 09:30 Temperature Pulse Rate 75 72 Respiratory Rate 12 11 L Blood Pressure 107/58 L 10/15/24 10:00 10/15/24 10:00 Temperature Pulse Rate 79 Respiratory Rate 10 L Blood Pressure 132/71 Oxygen Delivery Method Room Air Oxygen Flow Rate 2 Narrative Exam Narrative: GENERAL: This is a thin, frail-appearing patient, pale, appears weak otherwise in no apparent distress. EYES: Pupils equal round and reactive. Extraocular motions intact. No scleral icterus. No injection or drainage. ENT: Mucous membranes pink and moist. NECK: Trachea midline. No JVD, bruits or lymphadenopathy. Supple, nontender, no meningeal signs. CARDIOVASCULAR: Regular rate and rhythm without murmurs, gallops, or rubs. RESPIRATORY: Clear to auscultation. GASTROINTESTINAL: Abdomen soft, [id number] right-sided lower abdominal tenderness, no guarding or rebound, nondistended. EXTREMITIES: No clubbing, cyanosis, or edema. NEUROLOGIC: Alert, oriented, speech fluent, full upper and lower motor strength, no focal deficits evident. DERMATOLOGIC: No rashes or skin lesions. Objective ECG Impression: Sinus rhythm with premature atrial complexes at 100 beats per minute Incomplete right bundle branch block Left anterior fascicular block Minimal voltage criteria for LVH, may be normal variant ( R in aVL ) Imaging *: Radiologist's impression: 1. Abdomen pelvis CT 10/14/2024: 1. No evidence of acute trauma is seen in abdomen or pelvis. 2. Postsurgical changes in epigastric region and left upper quadrant with grossly intact surgical anastomosis. Suggestion of gastric and proximal small bowel wall thickening concerning for gastroenteritis. No abscess collection. No free fluid or free air. 3. Questionable inflammatory changes adjacent to head and uncinate process of pancreas which may be related to adjacent inflammation in the stomach and proximal small bowel loops. Clinical correlation is recommended to rule out underlying pancreatitis. No peripancreatic fluid collection. 4. Other chronic changes as above. 2. Head CT 10/14/2024: No acute intracranial pathology. 3. Cervical spine CT 10/14/2024: 1. No displaced fracture or traumatic subluxation. 2. Stable post ACDF changes in mid to lower cervical spine with stable cervical spine alignment. Spondylitic changes throughout rest of the cervical spine unchanged from prior study. 4. Chest CTA 10/14/2024: 1. No pulmonary embolus. No thoracic aortic aneurysm or gross dissection. 2. No acute cardiopulmonary process. 3. Chronic findings not significantly changed from prior studies. 5. Abdomen/pelvis CT 10/15/2024: Anterior abdominal wall hernia seen inferiorly, containing nondilated small bowel. This hernia is clearly worse on the current study than on the recent prior. Prior bariatric surgery, with generalized inflammatory change, yet without findings of perforation or abscess. Inflammatory change seen adjacent to the head of the pancreas, as before. Please consider pancreatitis. Additional findings: Moderate coronary artery calcification Small to moderate hiatal hernia Cholecystectomy Nonobstructing right-sided kidney stone Diverticulosis, without active diverticulitis Lumbosacral postoperative change Mild bilateral fat containing inguinal hernias Labs 10/15/24 09:39 10/15/24 04:00 Labs: Laboratory Results - last 24 hr 10/14/24 10/14/24 10/14/24 08:20 11:56 13:08 WBC RBC Hgb Hct MCV MCH MCHC RDW Plt Count Neut % (Auto) Lymph % (Auto) [place] % (Auto) Eos % (Auto) Baso % (Auto) Neut # (Auto) Lymph # (Auto) [place] # (Auto) Eos # (Auto) Baso # (Auto) Sodium Potassium Chloride Carbon Dioxide BUN Creatinine Estimated GFR BUN/Creatinine Ratio Glucose POC Whole Bld Glucose 208 H Hemoglobin A1c Calcium Nasal Screen MRSA (PCR) Not detected Crossmatch See Detail 10/14/24 10/14/24 10/15/24 16:58 23:09 04:00 WBC 11.4 H RBC 3.22 L Hgb 8.7 L Hct 26.0 L MCV 80.6 MCH 27.1 MCHC 33.6 RDW 19.1 H Plt Count 229 Neut % (Auto) 80.4 H Lymph % (Auto) 14.2 L [place] % (Auto) 5.3 Eos % (Auto) 0.0 L Baso % (Auto) 0.1 Neut # (Auto) 9200 H Lymph # (Auto) 1600 [place] # (Auto) 600 Eos # (Auto) 0 Baso # (Auto) 0 Sodium 135 L Potassium 3.5 Chloride 100 Carbon Dioxide 29 BUN 28 H Creatinine 0.76 Estimated GFR > 60 BUN/Creatinine Ratio 36.8 H Glucose 152 H D POC Whole Bld Glucose 149 H Hemoglobin A1c 6.5 H Calcium 8.1 L Nasal Screen MRSA (PCR) Crossmatch 10/15/24 10/15/24 10/15/24 05:11 09:39 11:27 WBC 10.3 RBC 3.18 L Hgb 8.6 L Hct 25.8 L MCV 81.2 MCH 27.0 MCHC 33.2 RDW 18.9 H Plt Count 242 Neut % (Auto) 78.2 H Lymph % (Auto) 14.9 L [place] % (Auto) 6.6 Eos % (Auto) 0.3 L Baso % (Auto) 0.0 Neut # (Auto) 8000 H Lymph # (Auto) 1500 [place] # (Auto) 700 Eos # (Auto) 0 Baso # (Auto) 0 Sodium Potassium Chloride Carbon Dioxide BUN Creatinine Estimated GFR BUN/Creatinine Ratio Glucose POC Whole Bld Glucose 157 H 174 H Hemoglobin A1c Calcium Nasal Screen MRSA (PCR) Crossmatch [facility] Medical History Degenerative disc disease GERD (gastroesophageal reflux disease) History of bleeding ulcers HNP (herniated nucleus pulposus), lumbar HTN (hypertension) Hypertriglyceridemia Nephrolithiasis Non-insulin dependent type 2 diabetes mellitus Surgical History History of cervical spinal surgery History of cholecystectomy History of colonoscopy History of gastric bypass History of vasectomy Status post lumbar surgery Family History Mother No known health problems Father No known health problems Social History household members: spouse and family alcohol intake: former Assessment & Plan Assessment & Plan narrative: 1. GI bleed due to pyloric channel ulcers at site of gastrojejunal anastomosis from prior gastric bypass, pathology pending - transfused 1 unit PRBC in ER given evidence of active bleeding on admission, stable since not requiring further transfusion - IV PPI b.i.d. plus sucralfate q.i.d. therapy - advance diet per surgery 2. Acute on Chronic microcytic anemia, symptomatic with syncope - stable since transfusion - stop IVF - serial hematocrits 3. Abdominal wall hernia, status post reduction 10/15/2024 -follow for recurrent pain, consider repeat reduction if recurrence and symptomatic 4. DM2, well-controlled with admission hemoglobin A1c 6.5% - SS insulin - hold metformin for now with mild acidosis on labs, FS ACHS 5. HTN - hold home BP meds for now, monitor 6. depression - continue prozac and olanzapine when taking po's Code status is full code. DVT prophylaxis with SCDs, avoid anticoagulants given acute bleeding Proxy is spouse Cecy. 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
[2024-10-15] MEDS: POTASSIUM CHLORIDE 20 MEQ/15 ML UDC 40 MEQ PO (12:17)
--- NOTE | 2024-10-15 16:32 | CM.DANOTE ---
Initial DCP Assessment Note Pt is a 69 yo male, resident of [place], presents with persistent abd pain, EGD showed nonbleeding circumferential pyloric channel ulcerations, patient admitted for ongoing work up and management. PCP: JACQUELINE José Payer: ADRYAN GRIFFIN (OCN)/[employer] Reviewed chart, pt discussed in multidisciplinary rounds this morning. Likely here through Thursday, dietary consult ordered. Patient with rapid weight loss over the last fe weeks. Met w/patient and spouse; patient lives w/sp, independent typically in all ADLs, reports fatigue over the last few weeks. No hx of HH or SNF. Patient reports he will consider HH if recommended, no agency preference, and would like to discuss it again closer to discharge. No barriers identified at this time to patient's safe discharge home w/family to assist; possibly HH, close outpatient f/u recommended. Social work team will plan to follow clinical course closely. ADAM Hanna Discharge Planning/Care Management CM Discharge Assessment Start: 10/14/24 11:50 Freq: Status: Active Protocol: Document 10/15/24 16:24 MIGUEL (Rec: 10/15/24 16:32 MIGUEL [id number]) Discharge Planning Assessment Assigned Discharge ADAM Ramirez Director International DPOA/Assigned Cecy Yin, spouse Designee Name Contact Information [phone] Advance Directives? No Advance Directives No on File History Provided By Patient,Medical Record Prior Living House Arrangements Household Members spouse,family Type of Relies on Others transporation used prior to admit Comment Has not been driving the last few weeks Independent with ADL Yes 's Is patient alert and Yes oriented? Comment Has been fatigued lately but typically indp in all ADLs Comment N/A Discharge Plan Home Transportation Spouse POV Arrangement Referrals Initiated Home Health Additional Comment May benefit from HH referral, patient and sp would like to discuss this closer to DC.
[2024-10-15] MEDS: ACETAMINOPHEN 325 MG TABLET 650 MG PO (17:17)
[2024-10-15] MEDS: SODIUM CHLORIDE 0.9% FLUSH 10 ML IV (21:21)
[2024-10-16] VITALS (41 sets, daily range): BP systolic 107–177; BP diastolic 51–75; PULSE 61–76; RESP 5–26; O2SAT 59–100
[2024-10-16] MEDS: HYDROMORPHONE 1 MG INJ IV ×6 (02:17→22:01)
[2024-10-16] MEDS: SODIUM CHLORIDE 0.9% FLUSH 10 ML IV ×6 (02:18→20:11)
[2024-10-16 04:30] LABS: Alanine Aminotransferase 71 IU/L (<50); Albumin 3.2 g/dL (3.5-5.0); Albumin Globulin Ratio 1.0 (1.0-2.8); Alkaline Phosphatase 86 U/L (38-126); Blood Urea Nitrogen 14 mg/dL (9-20); Calcium 8.2 mg/dL (8.4-10.2); Carbon Dioxide 26 mmol/L (22-32); Chloride 101 mmol/L (98-107); Estimated Glomerular Filt Rate > 60 mL/min (>60); Globulin 3.1 g/dL (1.7-4.1); Glucose 109 mg/dL (70-99); HEMOLYSIS 29 (0-50); Potassium 3.7 mmol/L (3.4-5.1); Sodium 134 mmol/L (137-145); Total Protein 6.3 g/dL (6.3-8.2)
--- NOTE | 2024-10-16 06:39 | PM.PN.IH.1 ---
Subjective Subjective Date Patient Seen: 10/16/24 Time Patient Seen: 06:40 Interval history: Patient is resting comfortably only complaint is he has a headache. Denies any abdominal pain. Patient was given clear liquids yesterday tolerated these well. Patient states he has had no further melanotic stools denies any nausea or vomiting. Patient has morning laboratory CBC is pending sodium is 134 potassium 3.7 chloride 101 bicarb is 26 BUN of 14 creatinine 0.7 random blood sugar is 109. Total bilirubin is 1.0 AST is 43 ALT is 71 alkaline phosphatase eighty six albumin is 3.2 Vitals: Temperature is 96.2? pulse 62 respirations 8 BP is 132/66 Heart regular rate and rhythm without murmurs. Lungs are clear to auscultation diminished in bases. Abdomen is soft nondistended good active bowel sounds patient's infraumbilical incisional hernia is easily reducible no masses or peritoneal signs. Impression: Postop day 2. EGD with control of bleeding gastrojejunostomy anastomotic ulcer with acute blood loss anemia History of previous peptic ulcer disease with perforation of gastrojejunostomy anastomosis with liver abscess Infraumbilical incisional hernia 2 cm easily reducible and reproducible no signs of incarceration or strangulation Plan: Patient is doing much better will advance diet slowly patient may be discharged from the ICU to regular bed as per hospitalist we will continue with medical management discussed with patient elective repair of the incisional hernia outpatient no need for emergent intervention at this time. All questions were answered to patient's satisfaction. Exam Vital Signs (past 8 hours): - 10/15/24 23:00 10/15/24 23:00 10/15/24 23:30 Pulse Rate 64 68 Respiratory Rate 10 L 8 L Blood Pressure 142/70 H Pulse Oximetry 90 L 99 10/16/24 00:00 10/16/24 00:00 10/16/24 00:30 Pulse Rate 71 70 Respiratory Rate 12 11 L Blood Pressure 154/69 H Pulse Oximetry 99 95 10/16/24 01:00 10/16/24 01:00 10/16/24 01:30 Pulse Rate 75 66 Respiratory Rate 12 9 L Blood Pressure 152/68 H Pulse Oximetry 97 99 10/16/24 02:00 10/16/24 02:00 10/16/24 02:30 Pulse Rate 67 65 Respiratory Rate 9 L 12 Blood Pressure 147/67 H Pulse Oximetry 98 99 10/16/24 03:00 10/16/24 03:00 10/16/24 03:30 Pulse Rate 65 66 Respiratory Rate 12 5 L Blood Pressure 156/70 H Pulse Oximetry 99 97 10/16/24 04:00 10/16/24 04:01 10/16/24 04:01 Pulse Rate 67 71 Respiratory Rate 10 L 7 L Blood Pressure 107/51 L Pulse Oximetry 98 91 10/16/24 04:30 10/16/24 05:00 10/16/24 05:00 Pulse Rate 65 63 Respiratory Rate 12 10 L Blood Pressure 133/63 Pulse Oximetry 97 90 L 10/16/24 05:30 10/16/24 05:59 10/16/24 06:00 Pulse Rate 65 62 Respiratory Rate 11 L 12 Blood Pressure 132/66 Pulse Oximetry 93 100 Oxygen Delivery Method Room Air Oxygen Flow Rate 2 Objective Labs 10/15/24 09:39 10/16/24 03:50 Labs: Laboratory Results - last 24 hr 10/15/24 10/15/24 10/15/24 09:39 11:27 16:38 WBC 10.3 RBC 3.18 L Hgb 8.6 L Hct 25.8 L MCV 81.2 MCH 27.0 MCHC 33.2 RDW 18.9 H Plt Count 242 Neut % (Auto) 78.2 H Lymph % (Auto) 14.9 L [place] % (Auto) 6.6 Eos % (Auto) 0.3 L Baso % (Auto) 0.0 Neut # (Auto) 8000 H Lymph # (Auto) 1500 [place] # (Auto) 700 Eos # (Auto) 0 Baso # (Auto) 0 Sodium Potassium Chloride Carbon Dioxide BUN Creatinine Estimated GFR BUN/Creatinine Ratio Glucose POC Whole Bld Glucose 174 H 107 H Calcium Total Bilirubin AST ALT Alkaline Phosphatase Total Protein Albumin Globulin Albumin/Globulin Ratio 10/15/24 10/16/24 10/16/24 21:18 03:11 03:50 WBC RBC Hgb Hct MCV MCH MCHC RDW Plt Count Neut % (Auto) Lymph % (Auto) [place] % (Auto) Eos % (Auto) Baso % (Auto) Neut # (Auto) Lymph # (Auto) [place] # (Auto) Eos # (Auto) Baso # (Auto) Sodium 134 L Potassium 3.7 Chloride 101 Carbon Dioxide 26 BUN 14 Creatinine 0.70 Estimated GFR > 60 BUN/Creatinine Ratio 20.0 Glucose 109 H POC Whole Bld Glucose 100 H 113 H Calcium 8.2 L Total Bilirubin 1.0 AST 43 ALT 71 H Alkaline Phosphatase 86 Total Protein 6.3 Albumin 3.2 L Globulin 3.1 Albumin/Globulin Ratio 1.0 PFSH Medical History Degenerative disc disease GERD (gastroesophageal reflux disease) History of bleeding ulcers HNP (herniated nucleus pulposus), lumbar HTN (hypertension) Hypertriglyceridemia Nephrolithiasis Non-insulin dependent type 2 diabetes mellitus Surgical History History of cervical spinal surgery History of cholecystectomy History of colonoscopy History of gastric bypass History of vasectomy Status post lumbar surgery Family History Mother No known health problems Father No known health problems Social History household members: spouse and family alcohol intake: former Assessment & Plan Time-Based Coding :: [TOTAL MINUTES] spent with patient and on the chart (including review of chart, obtaining history, exam, reviewing outside data, placing orders, documenting exam and treatment plan, and counseling patient) on [DATE]. PROFEE Alcohol And Drug Counselor Document charge(s): Yes
[2024-10-16] MEDS: ACETAMINOPHEN 325 MG TABLET 650 MG PO (08:08)
[2024-10-16] MEDS: PANTOPRAZOLE 40 MG VIAL IV ×2 (08:08→20:11)
[2024-10-16 08:38] LABS: Add Manual Diff / Slide Review NO; Hematocrit 23.9 % (41-53); Hemoglobin 7.9 g/dL (13.5-17.5); Lymphocytes Absolute Auto 1200 /uL (1100-4500); Mean Corpuscular HGB Conc 33.0 % (30-36); Mean Corpuscular Hemoglobin 26.8 PG (26-34); Mean Corpuscular Volume 81.2 fL (80-100); Platelet Count 225 X10^3/uL (150-400)
--- NOTE | 2024-10-16 08:39 | PM.PN.IH.1 ---
Subjective Subjective Date Patient Seen: 10/16/24 Time Patient Seen: 08:40 Interval history: Patient is continuing to have incisional hernia pain that is not resolving is taking narcotics on a routine basis. Patient states he has had a previous incisional hernia repair done and states he wants to have this done before he leaves the hospital she does not have any problems with it. Discussed with patient the findings and with the recent upper GI bleed and other coexisting medical problems his risk for complications could be double to triple and he also understands his risk for reoccurrence of the incisional hernia would be over 30%. Patient understands procedure risks and complications including risk for cardiopulmonary depression infection bleeding bowel injury he understands and consents. All questions were answered to patient's satisfaction we will schedule elective surgery in the a.m.. Discussed the patient's findings with hospitalist and he agrees states the patient is stable for surgery. We will schedule surgery in the a.m.. Exam Vital Signs (past 8 hours): - 10/16/24 01:00 10/16/24 01:00 10/16/24 01:30 Pulse Rate 75 66 Respiratory Rate 12 9 L Blood Pressure 152/68 H Pulse Oximetry 97 99 10/16/24 02:00 10/16/24 02:00 10/16/24 02:30 Pulse Rate 67 65 Respiratory Rate 9 L 12 Blood Pressure 147/67 H Pulse Oximetry 98 99 10/16/24 03:00 10/16/24 03:00 10/16/24 03:30 Pulse Rate 65 66 Respiratory Rate 12 5 L Blood Pressure 156/70 H Pulse Oximetry 99 97 10/16/24 04:00 10/16/24 04:01 10/16/24 04:01 Pulse Rate 67 71 Respiratory Rate 10 L 7 L Blood Pressure 107/51 L Pulse Oximetry 98 91 10/16/24 04:30 10/16/24 05:00 10/16/24 05:00 Pulse Rate 65 63 Respiratory Rate 12 10 L Blood Pressure 133/63 Pulse Oximetry 97 90 L 10/16/24 05:30 10/16/24 05:59 10/16/24 06:00 Pulse Rate 65 62 Respiratory Rate 11 L 12 Blood Pressure 132/66 Pulse Oximetry 93 100 10/16/24 06:00 10/16/24 06:30 10/16/24 07:00 Pulse Rate 62 61 65 Respiratory Rate 9 L 11 L 7 L Blood Pressure Pulse Oximetry 97 59 L 99 10/16/24 07:01 10/16/24 07:01 10/16/24 07:30 Pulse Rate 66 63 Respiratory Rate 11 L 11 L Blood Pressure 162/71 H Pulse Oximetry 99 Oxygen Delivery Method Room Air Oxygen Flow Rate 2 Objective Labs 10/15/24 09:39 10/16/24 03:50 Labs: Laboratory Results - last 24 hr 10/15/24 10/15/24 10/15/24 09:39 11:27 16:38 WBC 10.3 RBC 3.18 L Hgb 8.6 L Hct 25.8 L MCV 81.2 MCH 27.0 MCHC 33.2 RDW 18.9 H Plt Count 242 Neut % (Auto) 78.2 H Lymph % (Auto) 14.9 L [place] % (Auto) 6.6 Eos % (Auto) 0.3 L Baso % (Auto) 0.0 Neut # (Auto) 8000 H Lymph # (Auto) 1500 [place] # (Auto) 700 Eos # (Auto) 0 Baso # (Auto) 0 Sodium Potassium Chloride Carbon Dioxide BUN Creatinine Estimated GFR BUN/Creatinine Ratio Glucose POC Whole Bld Glucose 174 H 107 H Calcium Total Bilirubin AST ALT Alkaline Phosphatase Total Protein Albumin Globulin Albumin/Globulin Ratio 10/15/24 10/16/24 10/16/24 21:18 03:11 03:50 WBC RBC Hgb Hct MCV MCH MCHC RDW Plt Count Neut % (Auto) Lymph % (Auto) [place] % (Auto) Eos % (Auto) Baso % (Auto) Neut # (Auto) Lymph # (Auto) [place] # (Auto) Eos # (Auto) Baso # (Auto) Sodium 134 L Potassium 3.7 Chloride 101 Carbon Dioxide 26 BUN 14 Creatinine 0.70 Estimated GFR > 60 BUN/Creatinine Ratio 20.0 Glucose 109 H POC Whole Bld Glucose 100 H 113 H Calcium 8.2 L Total Bilirubin 1.0 AST 43 ALT 71 H Alkaline Phosphatase 86 Total Protein 6.3 Albumin 3.2 L Globulin 3.1 Albumin/Globulin Ratio 1.0 [facility] Medical History Degenerative disc disease GERD (gastroesophageal reflux disease) History of bleeding ulcers HNP (herniated nucleus pulposus), lumbar HTN (hypertension) Hypertriglyceridemia Nephrolithiasis Non-insulin dependent type 2 diabetes mellitus Surgical History History of cervical spinal surgery History of cholecystectomy History of colonoscopy History of gastric bypass History of vasectomy Status post lumbar surgery Family History Mother No known health problems Father No known health problems Social History household members: spouse and family alcohol intake: former Assessment & Plan Time-Based Coding :: [TOTAL MINUTES] spent with patient and on the chart (including review of chart, obtaining history, exam, reviewing outside data, placing orders, documenting exam and treatment plan, and counseling patient) on [DATE]. PROFEE Adjunct Professor Of English Document charge(s): Yes
[2024-10-16] MEDS: HYDROCODONE/ACET 5/325 TABLET 1 TAB PO ×3 (10:10→20:11)
[2024-10-16] MEDS: INSULIN LISPRO 100 UNIT/ML 3ML VIAL SUBCUT (12:23)
--- NOTE | 2024-10-16 12:47 | CM.DPNOTE ---
DCP Note [facility] [facility] reviewed EMR Per provider in morning rounds, plan for umbilical hernia repair tomorrow. GI bleed stabilized. remains on IV dilauded Q1. CM team will continue to follow post OP if additional DCP needs arise. potential HH candidate closer to dc. anticipate home with spouse when medically stable ADAM Robins
--- NOTE | 2024-10-16 14:22 | P.PN_ITS ---
Subjective Subjective Date Patient Seen: 10/16/24 Time Patient Seen: 07:35 Interval history: Chief complaint: Syncope, hematochezia Narrative: 69-year-old man under the primary care of Dr. Bebo Wilson reports 2 weeks of crampy abdominal pain, decreased to no appetite, anorexia, 20 lb weight loss and a syncopal episode this morning while walking down stairs, with sudden onset of dark red hematochezia. He was walking down stairs and on the last step fell, denying injuries, reporting nausea but no vomiting or hematemesis. Denies NSAID or aspirin use. He had a nonbleeding marginal ulcer near the gastrojejunal anastomosis of prior gastric bypass on EGD on 07/21/2024, and a normal colonoscopy at that time. His hematocrit was 23.4% on admission, down from 34.6% on 10/05/2024 when he presented to the emergency department with ongoing crampy abdominal pain. On chart review this has been going on for considerably longer but he states it is most prominent in the past 2 weeks. He is accompanied by his Cecy. He notes mild headache but denies other discomfort at this point. 10/15: EGD yesterday showed nonbleeding circumferential pyloric channel ulcerations. He is on pantoprazole 40 mg IV b.i.d. plus sucralfate 4 times daily. The patient reports persistent abdominal pain today. He underwent a CT showing an infraumbilical hernia. This was reduced and patient states pain is much better. 10/16: The patient continues to report right lower abdominal pain that responds to manual reduction of his incisional hernia, only to recur, and has been taking IV Dilaudid 1 mg hourly. he otherwise appears calm and comfortable. Bedside discussion with surgery and the patient held in which he expresses he wishes surgery to have this repaired before he leaves the hospital due to ongoing pain. No further bleeding reported or noted. Exam Vital Signs (past 8 hours): - 10/16/24 06:30 10/16/24 07:00 10/16/24 07:00 Pulse Rate 61 65 Respiratory Rate 11 L 7 L Blood Pressure Pulse Oximetry 59 L 99 Oxygen Delivery Method Room Air 10/16/24 07:01 10/16/24 07:01 10/16/24 07:30 Pulse Rate 66 63 Respiratory Rate 11 L 11 L Blood Pressure 162/71 H Pulse Oximetry 99 Oxygen Delivery Method 10/16/24 08:00 10/16/24 08:00 10/16/24 08:30 Pulse Rate 68 68 Respiratory Rate 10 L 10 L Blood Pressure 127/58 L Pulse Oximetry Oxygen Delivery Method 10/16/24 09:00 10/16/24 09:01 10/16/24 09:01 Pulse Rate 62 67 Respiratory Rate 9 L 11 L Blood Pressure 177/75 H Pulse Oximetry Oxygen Delivery Method 10/16/24 09:07 10/16/24 09:07 10/16/24 09:30 Pulse Rate 71 76 Respiratory Rate 17 11 L Blood Pressure 142/62 H Pulse Oximetry Oxygen Delivery Method 10/16/24 10:00 10/16/24 10:00 10/16/24 10:30 Pulse Rate 71 68 Respiratory Rate 11 L 11 L Blood Pressure 127/61 Pulse Oximetry Oxygen Delivery Method 10/16/24 11:00 10/16/24 11:00 10/16/24 11:30 Pulse Rate 68 67 Respiratory Rate 12 15 Blood Pressure 130/60 Pulse Oximetry Oxygen Delivery Method 10/16/24 12:00 10/16/24 12:00 10/16/24 12:30 Pulse Rate 66 74 Respiratory Rate 12 12 Blood Pressure 117/60 Pulse Oximetry Oxygen Delivery Method Oxygen Delivery Method Room Air Oxygen Flow Rate 2 Narrative Exam Narrative: GENERAL: This is a thin, frail-appearing patient, pale, appears weak otherwise in no apparent distress. EYES: Pupils equal round and reactive. Extraocular motions intact. No scleral icterus. No injection or drainage. ENT: Mucous membranes pink and moist. NECK: Trachea midline. No JVD, bruits or lymphadenopathy. Supple, nontender, no meningeal signs. CARDIOVASCULAR: Regular rate and rhythm without murmurs, gallops, or rubs. RESPIRATORY: Clear to auscultation. GASTROINTESTINAL: Abdomen soft, [id number] right-sided lower abdominal tenderness, no guarding or rebound, nondistended. This resolves with manual reduction of his hernia, though quickly returns when the hernia recurs. EXTREMITIES: No clubbing, cyanosis, or edema. NEUROLOGIC: Alert, oriented, speech fluent, full upper and lower motor strength, no focal deficits evident. DERMATOLOGIC: No rashes or skin lesions. Objective ECG Impression: EKG 10/14/2024: Sinus rhythm with premature atrial complexes at 100 beats per minute Incomplete right bundle branch block Left anterior fascicular block Minimal voltage criteria for LVH, may be normal variant ( R in aVL ) Imaging *: Radiologist's impression: 1. Abdomen pelvis CT 10/14/2024: 1. No evidence of acute trauma is seen in abdomen or pelvis. 2. Postsurgical changes in epigastric region and left upper quadrant with grossly intact surgical anastomosis. Suggestion of gastric and proximal small bowel wall thickening concerning for gastroenteritis. No abscess collection. No free fluid or free air. 3. Questionable inflammatory changes adjacent to head and uncinate process of pancreas which may be related to adjacent inflammation in the stomach and proximal small bowel loops. Clinical correlation is recommended to rule out underlying pancreatitis. No peripancreatic fluid collection. 4. Other chronic changes as above. 2. Head CT 10/14/2024: No acute intracranial pathology. 3. Cervical spine CT 10/14/2024: 1. No displaced fracture or traumatic subluxation. 2. Stable post ACDF changes in mid to lower cervical spine with stable cervical spine alignment. Spondylitic changes throughout rest of the cervical spine unchanged from prior study. 4. Chest CTA 10/14/2024: 1. No pulmonary embolus. No thoracic aortic aneurysm or gross dissection. 2. No acute cardiopulmonary process. 3. Chronic findings not significantly changed from prior studies. 5. Abdomen/pelvis CT 10/15/2024: Anterior abdominal wall hernia seen inferiorly, containing nondilated small bowel. This hernia is clearly worse on the current study than on the recent prior. Prior bariatric surgery, with generalized inflammatory change, yet without findings of perforation or abscess. Inflammatory change seen adjacent to the head of the pancreas, as before. Please consider pancreatitis. Additional findings: Moderate coronary artery calcification Small to moderate hiatal hernia Cholecystectomy Nonobstructing right-sided kidney stone Diverticulosis, without active diverticulitis Lumbosacral postoperative change Mild bilateral fat containing inguinal hernias Labs 10/16/24 08:30 10/16/24 03:50 Labs: Laboratory Results - last 24 hr 10/15/24 10/15/24 10/16/24 16:38 21:18 03:11 WBC RBC Hgb Hct MCV MCH MCHC RDW Plt Count Neut % (Auto) Lymph % (Auto) [place] % (Auto) Eos % (Auto) Baso % (Auto) Neut # (Auto) Lymph # (Auto) [place] # (Auto) Eos # (Auto) Baso # (Auto) Sodium Potassium Chloride Carbon Dioxide BUN Creatinine Estimated GFR BUN/Creatinine Ratio Glucose POC Whole Bld Glucose 107 H 100 H 113 H Calcium Total Bilirubin AST ALT Alkaline Phosphatase Total Protein Albumin Globulin Albumin/Globulin Ratio 10/16/24 10/16/24 10/16/24 03:50 08:30 08:52 WBC 6.1 RBC 2.94 L Hgb 7.9 L Hct 23.9 L MCV 81.2 MCH 26.8 MCHC 33.0 RDW 19.0 H Plt Count 225 Neut % (Auto) 69.1 Lymph % (Auto) 20.1 L [place] % (Auto) 9.3 Eos % (Auto) 1.2 L Baso % (Auto) 0.3 Neut # (Auto) 4200 Lymph # (Auto) 1200 [place] # (Auto) 600 Eos # (Auto) 100 Baso # (Auto) 0 Sodium 134 L Potassium 3.7 Chloride 101 Carbon Dioxide 26 BUN 14 Creatinine 0.70 Estimated GFR > 60 BUN/Creatinine Ratio 20.0 Glucose 109 H POC Whole Bld Glucose 121 H Calcium 8.2 L Total Bilirubin 1.0 AST 43 ALT 71 H Alkaline Phosphatase 86 Total Protein 6.3 Albumin 3.2 L Globulin 3.1 Albumin/Globulin Ratio 1.0 10/16/24 11:47 WBC RBC Hgb Hct MCV MCH MCHC RDW Plt Count Neut % (Auto) Lymph % (Auto) [place] % (Auto) Eos % (Auto) Baso % (Auto) Neut # (Auto) Lymph # (Auto) [place] # (Auto) Eos # (Auto) Baso # (Auto) Sodium Potassium Chloride Carbon Dioxide BUN Creatinine Estimated GFR BUN/Creatinine Ratio Glucose POC Whole Bld Glucose 144 H Calcium Total Bilirubin AST ALT Alkaline Phosphatase Total Protein Albumin Globulin Albumin/Globulin Ratio [facility] Medical History Degenerative disc disease GERD (gastroesophageal reflux disease) History of bleeding ulcers HNP (herniated nucleus pulposus), lumbar HTN (hypertension) Hypertriglyceridemia Nephrolithiasis Non-insulin dependent type 2 diabetes mellitus Surgical History History of cervical spinal surgery History of cholecystectomy History of colonoscopy History of gastric bypass History of vasectomy Status post lumbar surgery Family History Mother No known health problems Father No known health problems Social History household members: spouse and family alcohol intake: former Assessment & Plan Assessment & Plan narrative: 1. GI bleed due to pyloric channel ulcers at site of gastrojejunal anastomosis from prior gastric bypass, pathology pending - transfused 1 unit PRBC in ER given evidence of active bleeding on admission, stable since not requiring further transfusion - IV PPI b.i.d. plus sucralfate q.i.d. therapy - advance diet per surgery, NPO After midnight for hernia surgery tomorrow 2. Acute on Chronic microcytic anemia, symptomatic with syncope - stable since transfusion - stop IVF - serial hematocrits 3. Abdominal wall hernia, status post reduction 10/15/2024 - surgical repair planned tomorrow - he is medically clear for surgery 4. DM2, well-controlled with admission hemoglobin A1c 6.5% - SS insulin - hold metformin for now with mild acidosis on labs, FS ACHS 5. HTN - hold home BP meds for now, monitor 6. depression - continue prozac and olanzapine when taking po's Code status is full code. DVT prophylaxis with SCDs, avoid anticoagulants given acute bleeding Proxy is spouse Cecy. Dipso: Transition to floor status today PROFEE Clinical Application Manager Document charge(s): No Charge Codes Subsequent inpatient/observation care: [id number]
[2024-10-16] MEDS: ONDANSETRON 4 MG/2 ML INJ IV (14:59)
[2024-10-17] VITALS (11 sets, daily range): BP systolic 105–175; BP diastolic 52–78; PULSE 61–76; RESP 11–23; TEMP 36.2–36.7; O2SAT 95–100; BMI 25.9
--- NOTE | 2024-10-17 | PATH_ITS ---
[facility] Accession Number: [id number] No. of containers..01 Tissue . 01 Material submitted: . hernia - HERNIA SAC . 01 Diagnosis: HERNIA SAC: Fibromuscular and fibroconnective tissue with a focal mesothelial lining, consistent with hernia sac; negative for significant atypia. [facility] 10/24/2024 1027 Local . 01 Electronically signed: . Su Murphy MD, Pathologist NPI- [id number] . 01 Gross description: . Received in formalin, labeled with the patient's name, date of , and hernia sac is a 7.3 x 4.0 x 1.4 cm saccular portion of yellow-hunt to pink, fibromembranous tissue with blue synthetic suture material admixed. No nodules or lesions are identified. Load Tallier sections are submitted in cassette A1. ([id number]) /MRV 10/20/2024 1214 Local . 01 Pathologist provided ICD-10: K46.9 . 01 CPT . 397003 Specimen Comment: A courtesy copy of this report has been sent to [facility] Pathology Performed at: [address] [address], [place], [place] [id number] MD Fidel Garcia MD Phone: [phone]
[2024-10-17] MEDS: HYDROMORPHONE 1 MG INJ IV ×3 (02:09→12:07)
[2024-10-17] MEDS: CEFAZOLIN 2 GM/100 ML PREMIX 100 ML IV ×2 (06:18→10:40)
--- NOTE | 2024-10-17 07:25 | P.PN_ITS ---
Subjective Subjective Date Patient Seen: 10/17/24 Time Patient Seen: 07:25 Interval history: Patient is resting comfortably in bed postop day 3. States he has had no further melanotic stools. Patient does have some mild incisional hernia discomfort but is easily reducible reproducible patient is scheduled for OR this date for repair of the hernia. Procedure risks and complications were fully explained including risk for cardiopulmonary depression infection bleeding reoccurrences possible bowel injury patient understands and consents we will proceed to OR this date. All questions were answered the patient's satisfaction. Patient is given normal postoperative instructions on lifting stairs walking driving diet bathing exercise infectious changes wound care we will have the patient follow back up with the other surgeons in the office for postoperative follow-up. Exam Vital Signs (past 8 hours): - 10/17/24 00:00 10/17/24 04:00 Temperature 97.2 F L Pulse Rate 67 68 Respiratory Rate 16 16 Blood Pressure 148/70 H 175/77 H Pulse Oximetry 98 99 Oxygen Delivery Method Room Air Oxygen Flow Rate 2 Objective Labs 10/16/24 08:30 10/16/24 03:50 Labs: Laboratory Results - last 24 hr 10/16/24 10/16/24 10/16/24 08:30 08:52 11:47 WBC 6.1 RBC 2.94 L Hgb 7.9 L Hct 23.9 L MCV 81.2 MCH 26.8 MCHC 33.0 RDW 19.0 H Plt Count 225 Neut % (Auto) 69.1 Lymph % (Auto) 20.1 L Shannon % (Auto) 9.3 Eos % (Auto) 1.2 L Baso % (Auto) 0.3 Neut # (Auto) 4200 Lymph # (Auto) 1200 Shannon # (Auto) 600 Eos # (Auto) 100 Baso # (Auto) 0 POC Whole Bld Glucose 121 H 144 H 10/16/24 10/16/24 16:34 21:20 WBC RBC Hgb Hct MCV MCH MCHC RDW Plt Count Neut % (Auto) Lymph % (Auto) Shannon % (Auto) Eos % (Auto) Baso % (Auto) Neut # (Auto) Lymph # (Auto) Shannon # (Auto) Eos # (Auto) Baso # (Auto) POC Whole Bld Glucose 118 H 141 H [facility] Medical History Degenerative disc disease GERD (gastroesophageal reflux disease) History of bleeding ulcers HNP (herniated nucleus pulposus), lumbar HTN (hypertension) Hypertriglyceridemia Nephrolithiasis Non-insulin dependent type 2 diabetes mellitus Surgical History History of cervical spinal surgery History of cholecystectomy History of colonoscopy History of gastric bypass History of vasectomy Status post lumbar surgery Family History Mother No known health problems Father No known health problems Social History household members: spouse and family alcohol intake: former Assessment & Plan Time-Based Coding :: [TOTAL MINUTES] spent with patient and on the chart (including review of chart, obtaining history, exam, reviewing outside data, placing orders, documenting exam and treatment plan, and counseling patient) on [DATE]. PROFEE Doctor Of Veterinary Medicine Document charge(s): Yes
[2024-10-17 09:02] LABS: Hematocrit 23.0 % (41-53); Hemoglobin 7.5 g/dL (13.5-17.5); Mean Corpuscular HGB Conc 32.7 % (30-36); Mean Corpuscular Hemoglobin 26.9 PG (26-34); Mean Corpuscular Volume 82.3 fL (80-100); Platelet Count 256 X10^3/uL (150-400)
[2024-10-17 09:21] LABS: Alanine Aminotransferase 52 IU/L (<50); Albumin 3.1 g/dL (3.5-5.0); Albumin Globulin Ratio 1.1 (1.0-2.8); Alkaline Phosphatase 93 U/L (38-126); Blood Urea Nitrogen 10 mg/dL (9-20); Calcium 8.0 mg/dL (8.4-10.2); Carbon Dioxide 28 mmol/L (22-32); Chloride 102 mmol/L (98-107); Estimated Glomerular Filt Rate > 60 mL/min (>60); Globulin 2.8 g/dL (1.7-4.1); Glucose 124 mg/dL (70-99); HEMOLYSIS < 15 (0-50); Potassium 3.9 mmol/L (3.4-5.1); Sodium 136 mmol/L (137-145); Total Protein 5.9 g/dL (6.3-8.2)
--- NOTE | 2024-10-17 09:36 | PC.NURSE ---
Addendum entered by Cat Lan R.N. 10/17/24 15:29: Pt agreeable to discharge. IV's discontinued. Telemetry removed. education provided on postoperative care, constipation prevention, followup. Pt wheeled via w/c to private vehicle at approximately 1418 by family and PCT. Addendum entered by Cat Lan R.N. 10/17/24 12:34: Pt arrived back to room 229 from PACU at approximately 1225. A&Ox4. Vitals WDL, abdominal lap site CDI at midline below umbilicus. Family at bedside. Tolerating clear liqs. Care ongoing. Original Note: Day shift: Pt A&Ox4, able to ambulate in room with SBA. Voided. Transferred from room 229 to preoperative area at approximately 0930 by Yudith CHO. Spouse Divya updated on pt status. Care ongoing.
[2024-10-17] MEDS: LACTATED RINGERS 1,000 ML 42 ML IV (09:58)
--- NOTE | 2024-10-17 10:56 | SUR.OPER ---
Supine on padded OR bed, head on pillow, arms secured on padded arm boards at <90 degrees abduction, legs uncrossed, safety belt at thigh, tape over blanket over lower legs.
--- NOTE | 2024-10-17 11:42 | PM.PROC.IH ---
Procedures Date/Time Date of procedure: 10/17/24 Time of procedure: 11:44 General Procedure description: Open recurrent incisional hernia repair non incarcerated Complications: none Abscess I/D Site: abdomen Irrigation: Yes Arterial Line Time out performed: Yes
--- NOTE | 2024-10-17 11:45 | P.OP_ITS ---
Operative Date/Time/Diagnoses Date of procedure: 10/17/24 Time of procedure: 11:45 Pre-op diagnosis: Recurrent incisional hernia non incarcerated Post-op diagnosis: same Procedure & Clinicians Procedure: See operative note Same procedure(s) as scheduled: Yes Surgeon: Richie Rodrigues Anesthesia Type: General Operative Notes Findings: Patient was seen in consultation preoperatively patient was noted to have a history of a duodenal ulcer bleed which was controlled with medications and given blood transfusion. In the hospital patient was noted to have severe abdominal pain CT scan was performed which shows an infraumbilical incisional hernia with approximately a 2 cm defect with approximately 5 cm of small bowel. This is easily reducible. Patient was told that we needed to allow him to heal from his GI bleeding but patient was adamant that he needed to have the hernia repair done. Patient understood the risk for recurrence would be greater than 30% as he has already had a hernia repair with mesh. Procedure risks and complications were fully explained including risk for cardiopulmonary depression infection bleeding bowel injury patient understood and consented. Patient was NPO at midnight. Brought to surgery suite was administered general inhalation e ndotracheal anesthetic SCDs Mckinley's IV antibiotics were given. Patient had a tap block done as per anesthesia. Patient was prepped and draped in usual sterile fashion. The lesion had been marked preoperatively and also time-out was performed patient procedure and surgeon. All in the room were in agreement. Patient then had an incision made overlying area with 15. Knife blade this was gently dissected down excising the previous scar submitted to pathology the incision was carried down the hernia sac this was elevated then cleared of any subcutaneous tissue the hernia sac was quite thick and appeared to be quite chronic. This was dissected down to the fascia the hernia sac was then opened no abdominal contents were noted in the hernia sac but small bowel was noted the hernia sac was removed at the fascia and submitted to pathology. The fascia was elevated and the peritoneum was underneath this. Peritoneum was then closed with a running 0 Vicryl. No bleeding was noted all the intestinal contents were noted to be clear without any pathology. Patient then had a fascia was closed in a [id number] repair with 0 Surgilon all sutures were placed and then tied excellent reapproximation was noted no undue tension was noted. The free edge of the fascia was then further tacked down with further interrupted Surgilon. Wound is inspected no other findings were noted no signs of bleeding. The wound was irrigated out with sterile normal saline and suctioned dry patient then had the fatty layer was then closed with interrupted inverted 0 Vicryl skin reapproximated with inverted 3-0 Vicryl then closed with a running subcuticular 3-0 Vicryl. Wound was cleansed with sterile saline blotted dry covered with half-inch Steri-Strips bulky bandage and taped in place. First and 2nd sponge instrument and needle counts found to be correct patient tolerated procedure well without complication patient was turned recovery room satisfactory condition. Postoperatively we will admit back to inpatient doing well may be discharge will be given instructions on lifting stairs walking driving diet bathing exercise infectious changes wound care patient will be sent home with a prescription for H2 blockers Carafate and also hydrocodone. Patient will follow back up in the office for postop check or if any problems questions or concerns. All questions were answered with the patient and 's satisfaction. Closure Type: primary Applied: none Estimated Blood Loss (mL): 2 Blood products transfused: none Procedure in detail: See operative note Complications: none Post-operative Condition: stable Disposition: PACU
[2024-10-17] MEDS: ONDANSETRON 4 MG/2 ML INJ IV (12:01)
[2024-10-17] MEDS: OXYCODONE IR 5 MG TABLET PO (12:17)
[2024-10-17] MEDS: INSULIN LISPRO 100 UNIT/ML 3ML VIAL SUBCUT (13:24)
--- NOTE | 2024-10-17 13:46 | PM.DS.1 ---
History of Present Illness History of Present Illness Date Patient Seen: 10/17/24 Chief complaint: Syncope, hematochezia hernia Narrative: Chief complaint: Syncope and hematochezia History of present illness: 10/14:69-year-old man under the primary care of Dr. Bebo Wilson reports 2 weeks of crampy abdominal pain, decreased to no appetite, anorexia, 20 lb weight loss and a syncopal episode this morning while walking down stairs, with sudden onset of dark red hematochezia. He was walking down stairs and on the last step fell, denying injuries, reporting nausea but no vomiting or hematemesis. Denies NSAID or aspirin use. He had a nonbleeding marginal ulcer near the gastrojejunal anastomosis of prior gastric bypass on EGD on 07/21/2024, and a normal colonoscopy at that time. His hematocrit was 23.4% on admission, down from 34.6% on 10/05/2024 when he presented to the emergency department with ongoing crampy abdominal pain. On chart review this has been going on for considerably longer but he states it is most prominent in the past 2 weeks. He is accompanied by his Cecy. He notes mild headache but denies other discomfort at this point. Hospital course: 10/15: EGD yesterday showed nonbleeding circumferential pyloric channel ulcerations. He is on pantoprazole 40 mg IV b.i.d. plus sucralfate 4 times daily. The patient reports persistent abdominal pain today. He underwent a CT showing an infraumbilical hernia. This was reduced and patient states pain is much better. 10/16: The patient continues to report right lower abdominal pain that responds to manual reduction of his incisional hernia, only to recur, and has been taking IV Dilaudid 1 mg hourly. he otherwise appears calm and comfortable. Bedside discussion with surgery and the patient held in which he expresses he wishes surgery to have this repaired before he leaves the hospital due to ongoing pain. No further bleeding reported or noted. 10/17: Patient underwent hernia repair is tolerating diet postoperatively discussed with surgeon and is okay to go home Review of systems: No chest pain palpitations shortness No nausea vomiting diarrhea No excessive pain Physical exam: Alert oriented and cogent eating Jono crackers HEENT unremarkable No labored respirations No edema of extremities Assessment and plan: 1. GI bleed due to pyloric channel ulcers at site of gastrojejunal anastomosis from prior gastric bypass, pathology pending - transfused 1 unit PRBC in ER given evidence of active bleeding on admission, stable since not requiring further transfusion - IV PPI b.i.d. plus sucralfate q.i.d. therapy - advance diet discharged home on Carafate and Protonix b.i.d. 2. Acute on Chronic microcytic anemia, symptomatic with syncope - stable since transfusion 3. Abdominal wall hernia, status post reduction 10/15/2024 - surgical repair uncomplicated discharging home 4. DM2, well-controlled with admission hemoglobin A1c 6.5% - SS insulin - hold metformin for now with mild acidosis on labs, FS ACHS 5. HTN - hold home BP meds for now, monitor 6. depression - continue prozac and olanzapine when taking po's Code status is full code. DVT prophylaxis with SCDs, avoid anticoagulants given acute bleeding Proxy is spouse Cecy. Dipso: Discharge to home today 35 minutes were involved in management this patient including [id number] evaluation with patient and family members physical examination review of records objective laboratory and imaging data as well as direct consultation with surgeon Discharge Providers Provider Date of admission: 10/14/24 10:45 Discharge Date: 10/17/24 Primary care physician: Shin José PA-C Consults: 10/14/24 11:55 Consult to Discharge Planning Routine Comment: 10/17/24 11:55 Consult to Discharge Planning Routine Comment: Discharge provider: Alex Robert MD Exam Vital Signs (past 8 hours): - 10/17/24 09:53 10/17/24 11:45 10/17/24 11:50 Temperature 98 F 98 F Pulse Rate 75 76 71 Respiratory Rate 16 22 15 Blood Pressure 153/78 H 123/68 105/57 L Pulse Oximetry 100 97 97 Oxygen Delivery Method Room Air Room Air Room Air Oxygen Flow Rate 10/17/24 11:55 10/17/24 12:00 10/17/24 12:05 Temperature Pulse Rate 71 64 63 Respiratory Rate 23 14 14 Blood Pressure 107/52 L 120/55 L 118/60 Pulse Oximetry 98 97 98 Oxygen Delivery Method Room Air Room Air Room Air Oxygen Flow Rate 10/17/24 12:10 10/17/24 12:15 10/17/24 13:30 Temperature 98.0 F 97.7 F Pulse Rate 64 61 74 Respiratory Rate 22 11 L 20 Blood Pressure 114/64 124/58 L 119/58 L Pulse Oximetry 95 98 100 Oxygen Delivery Method Room Air Room Air Oxygen Flow Rate 0 Oxygen Delivery Method Room Air Oxygen Flow Rate 0 Objective Labs 10/17/24 08:25 10/17/24 08:25 Labs: Laboratory Results - last 24 hr 10/16/24 10/16/24 10/17/24 16:34 21:20 08:16 WBC RBC Hgb Hct MCV MCH MCHC RDW Plt Count Sodium Potassium Chloride Carbon Dioxide BUN Creatinine Estimated GFR BUN/Creatinine Ratio Glucose POC Whole Bld Glucose 118 H 141 H 156 H Calcium Total Bilirubin AST ALT Alkaline Phosphatase Total Protein Albumin Globulin Albumin/Globulin Ratio 10/17/24 10/17/24 10/17/24 08: 09:42 13:23 WBC 5.6 RBC 2.80 L Hgb 7.5 L Hct 23.0 L MCV 82.3 MCH 26.9 MCHC 32.7 RDW 19.4 H Plt Count 256 Sodium 136 L Potassium 3.9 Chloride 102 Carbon Dioxide 28 BUN 10 Creatinine 0.75 Estimated GFR > 60 BUN/Creatinine Ratio 13.3 Glucose 124 H POC Whole Bld Glucose 133 H 207 H Calcium 8.0 L Total Bilirubin 0.5 AST 27 ALT 52 H Alkaline Phosphatase 93 Total Protein 5.9 L Albumin 3.1 L Globulin 2.8 Albumin/Globulin Ratio 1.1 PFSH Medical History Degenerative disc disease GERD (gastroesophageal reflux disease) History of bleeding ulcers HNP (herniated nucleus pulposus), lumbar HTN (hypertension) Hypertriglyceridemia Nephrolithiasis Non-insulin dependent type 2 diabetes mellitus Surgical History History of cervical spinal surgery History of cholecystectomy History of colonoscopy History of gastric bypass History of vasectomy Status post lumbar surgery Family History Mother No known health problems Father No known health problems Social History household members: spouse and family alcohol intake: former Discharge Plan Discharge Plan Patient Disposition: Home Discharge orders & Medications Prescriptions: New sucralfate 1 gram Tablet 1 gm PO ACHS Qty: 120 0RF pantoprazole [Protonix] [address] for susp in packet 40 mg PO BID Qty: 60 0RF Continued acetaminophen 325 mg Tablet 650 mg PO Q6H PRN (Reason: Fever/Mild Pain (1-3)) Qty: 50 0RF nitroglycerin [Nitrostat] 0.4 mg Tablet, Sublingual 0.4 mg sublingual [id number] PRN (Reason: Chest Pain) Qty: 30 0RF Patient Comments: months ago metformin 1,000 mg tablet 500 mg PO BID hydrocodone-acetaminophen 5-325 mg tablet 1 tab PO Q4-6H PRN (Reason: pain) Qty: 12 0RF multivitamin Tablet 1 tab PO DAILY ferrous sulfate 325 mg (65 mg iron) Tablet 325 mg PO DAILY Qty: 30 1RF pantoprazole 40 mg tablet,delayed release (DR/EC) 40 mg PO DAILY Follow up/Referrals: Shin José PA-C [Primary Care Provider, Medical] Diet/Activity/Treatments Diet: Diet as Tolerated and Carb-consistent/Diabetic Skin/Wound/Dressing Care Report to your healthcare provider any signs of infection, such as:: chills, fever, night sweats, increased pain, unusual drainage and unusual redness Visit Report/Discharge Packet Stand Alone Forms: Patient Portal/API, Stroke Signs & Symptoms, Surgery Discharge Discharge Data Primary Care Provider: Shin José
--- NOTE | 2024-10-17 14:34 | CM.DPNOTE ---
DCP note [employer]ION PICTURE PHOTOGRAPHER reviewed EMR per chart, pt set to dc today post hernia repair MOTION PICTURE PHOTOGRAPHER went to meet with pt in room, pt already left with spouse P: home with spouse today and OP f/u. no CM needs. will continue to follow as needed ADAM Robins
== END 2024-10-17 14:18 | disposition home or self-care (01) | DRG 354 ==
LOC: ED 10:37 → AC 10:46 → ICU 11:28
PROVIDERS: Surgery; Admitting Provider Internal Medicine; Emergency Provider Emergency Medicine; PCP Student in an Organized Health Care Education/Training Program; Referring Provider Emergency Medicine; Visit Provider Internal Medicine
PROC: 0DJ08ZZ Inspection of Upper Intestinal Tract, Via Natural or Artificial Opening Endoscopic (ICD-10-PCS; principal; 2024-10-14 13:15)
PROC: 0WQF0ZZ Repair Abdominal Wall, Open Approach (ICD-10-PCS; principal; 2024-10-17 10:00)
DX: K28.4 Chronic or unspecified gastrojejunal ulcer with hemorrhage (principal); D62 Acute posthemorrhagic anemia; K43.2 Incisional hernia without obstruction or gangrene; R51.9 Headache, unspecified; E11.9 Type 2 diabetes mellitus without complications; I10 Essential (primary) hypertension; F32.A Depression, unspecified; E78.5 Hyperlipidemia, unspecified; K21.9 Gastro-esophageal reflux disease without esophagitis; W10.9XXA Fall (on) (from) unspecified stairs and steps, initial encounter; Z87.891 Personal history of nicotine dependence; Z98.84 Bariatric surgery status; Z79.84 Long term (current) use of oral hypoglycemic drugs; Z87.19 Personal history of other diseases of the digestive system
CPT/HCPCS: 36415; 36430; 70450; 71275; 72125; 74177; 80048; 80053; 80320; 82962; 83036; 83690; 83735; 84484; 85007; 85025; 85027; 85610; 85730; 86850; 86900; 86901; 87797; 93005; 96374; 99285; 99291; P9016; J0330; J0690; J1171; J1815; J2405; J2470; J2704; J3010; Q9967

== ENCOUNTER 2024-10-21 09:30 | Inpatient (IN) | payer MEDICARE, OTHER, SELFPAY ==
[2024-10-14 11:50] VITALS: BMI 25.6
[2024-10-21] VITALS (23 sets, daily range): BP systolic 123–211; BP diastolic 67–105; PULSE 65–116; RESP 14–24; TEMP 36.6–36.7; O2SAT 93–100; BMI 26.2
--- NOTE | 2024-10-21 09:44 | ED.ABDPAIN ---
HPI - Abdominal Pain <Al Madison, DO - Last Filed: 10/21/24 23:00> General Chief Complaint: Abdominal Pain Stated Complaint: Stomach pain x 7 days Time Seen by Provider: 10/21/24 09:36 History of Present Illness HPI narrative: 69-year-old gentleman with no known history of nonbleeding marginal ulcer near the gastrojejunal anastomosis of prior gastric bypass on EGD 07/21/2024 and normal colonoscopy at that time came in recently on 10/15 for upper GI bleed whereby EGD showed nonbleeding circumferential pyloric channel ulceration started on pantoprazole and sulfa create and at that time CT scan showed infra umbilical hernia that was reduced and the pain was much better but he wished to have that repaired prior to discharge and underwent repair on October 17. Since he has been discharged he has continued to have pain in the abdomen and around the umbilical site at this time sent over here for further evaluation per the surgeon. Other than what is stated 14 point review of system is negative. Related Data Home Medications ?Medication ?Instructions ?Recorded ?Confirmed multivitamin 1 tab PO DAILY 09/10/18 10/14/24 metformin 1,000 mg tablet 500 mg PO BID 09/15/23 10/14/24 pantoprazole 40 mg tablet,delayed 40 mg PO DAILY 10/14/24 10/14/24 release Previous Rx's ?Medication ?Instructions ?Recorded acetaminophen 325 mg tablet 650 mg (2 x 325 mg) PO Q6H PRN 01/18/23 Fever/Mild Pain (1-3) #50 tabs nitroglycerin 0.4 mg sublingual 0.4 mg sublingual [id number] PRN 01/18/23 tablet (Nitrostat) Chest Pain #30 tabs ferrous sulfate 325 mg (65 mg 325 mg PO DAILY #30 tabs 04/28/24 iron) tablet hydrocodone 5 mg-acetaminophen 325 1 tab PO Q4-6H PRN pain #12 tabs 09/29/24 mg tablet pantoprazole 40 mg granules 40 mg PO BID #60 ea 10/17/24 delayed-release for susp in packet (Protonix) sucralfate 1 gram tablet 1 gm PO ACHS #120 tabs 10/17/24 Allergies Allergy/AdvReac Type Severity Reaction Status Date / Time NSAIDS (Non-Steroidal AdvReac Mild CAN TAKE, Verified 10/21/24 09:46 Anti-Inflamma (NSAIDS BUT TRIES (NON-STEROIDAL ANTI-INFLAMMA) TO AVOID R/T GASTRIC BYPASS Review of Systems <Al Madison, DO - Last Filed: 10/21/24 23:00> Review of Systems ROS Unobtainable: All systems reviewed & are unremarkable except as noted in HPI and below Patient History <Al Madison, DO - Last Filed: 10/21/24 23:00> Medical History GERD (gastroesophageal reflux disease) HNP (herniated nucleus pulposus), lumbar History of bleeding ulcers Hypertriglyceridemia Non-insulin dependent type 2 diabetes mellitus HTN (hypertension) Nephrolithiasis Degenerative disc disease Surgical History History of vasectomy History of colonoscopy History of cholecystectomy History of gastric bypass History of cervical spinal surgery Status post lumbar surgery Family History Mother No known health problems Father No known health problems Social History household members: spouse and family alcohol intake: former tobacco type: cigarettes alcohol intake frequency: holidays/special occasions only Exam <Al Madison, DO - Last Filed: 10/21/24 23:00> Narrative Exam Narrative: GENERAL: [69] year old patient appears stated age. Well-developed patient, in mild distress. HEAD: Atraumatic. Normocephalic. EYES: Pupils equal round and reactive. Extraocular motions intact. No scleral icterus. No injection or drainage. ENT: Nose without bleeding, purulent drainage. Throat without erythema, tonsillar hypertrophy or exudate. Airway patent. NECK: Trachea midline. Non tender CARDIOVASCULAR: Regular rate and rhythm without murmurs, gallops, or rubs. RESPIRATORY: Clear to auscultation. Breath sounds equal bilaterally. No wheezes, rales, or rhonchi. GASTROINTESTINAL: Abdomen soft, non-tender, nondistended. Umbilical surgical site wound dressing covered. EXTREMITIES: No edema or joint tenderness. BACK: Nontender without deformity or crepitance. No flank tenderness. NEURO: AOx3. SKIN: No rash or erythema of visible areas Initial Vital Signs Initial Vital Signs: Vital Signs Pulse Rate 100 H 10/21/24 09:42 Pulse Oximetry 93 10/21/24 09:42 <Jaime Read MD - Last Filed: 10/21/24 23:39> Initial Vital Signs Initial Vital Signs: Vital Signs Pulse Rate 100 H 10/21/24 09:42 Pulse Oximetry 93 10/21/24 09:42 Course <Al Madison DO - Last Filed: 10/21/24 23:00> Orders Ordered: ED Orders 10/21/24 15:16 Ictotest Urine Stat Urine Microscopic Stat 10/21/24 16:32 CT abdomen pelvis w con Stat 10/21/24 16:39 EKG-12 Lead Stat 10/21/24 20:55 Lactate (Lactic Acid) Stat Al Hydrox/Mg Hydrox/Simethicone (Mag Hydrox/Alum/Simeth 30 Ml Udc) 30 ml PO [facility] Hydromorphone HCl (Hydromorphone Hcl 0.5 Mg/0.5 Ml Syringe) 0.5 mg IV Q2H PRN PRN Reason: Pain, Severe (7-10) Last Admin: 10/21/24 22:57 Dose: 0.5 mg Documented By: Admin: 10/21/24 20:24 Dose: 0.5 mg Documented By: SH Sodium Chloride (Normal Saline 0.9%) 1,000 mls @ 100 mls/hr IV CONT DEANNE Last Admin: 10/21/24 20:24 Dose: 100 mls/hr Documented By: SH Naloxone HCl (Naloxone 0.4 Mg/Ml Vial) 0.2 mg IV Q2MIN PRN PRN Reason: Opiate Reversal Ondansetron HCl (Ondansetron 4 Mg/2 Ml Inj) 4 mg IV NOW PRN PRN Reason: Nausea And Vomiting Last Admin: 10/21/24 11:55 Dose: 4 mg Documented By: MPO Ondansetron HCl (Ondansetron 4 Mg Odt) 4 mg PO NOW PRN PRN Reason: Nausea And Vomiting Ondansetron HCl (Ondansetron 4 Mg/2 Ml Inj) 4 mg IV Q8HR PRN PRN Reason: Nausea And Vomiting Pantoprazole Sodium (Pantoprazole 40 Mg Vial) 40 mg IV BID [facility] Sucralfate (Sucralfate 1 Gm Tablet) 1 gm PO ACHS DEANNE Discontinued Medications Hydromorphone HCl (Hydromorphone 1 Mg Inj) 1 mg IV NOW ONE Stop: 10/21/24 15:12 Last Admin: 10/21/24 15:27 Dose: 1 mg Documented By: IRIS Hydromorphone HCl (Hydromorphone 1 Mg Inj) 1 mg IV NOW ONE Stop: 10/21/24 16:42 Last Admin: 10/21/24 16:51 Dose: 1 mg Documented By: IRIS Lactated Ringer's (Lactated Ringers) 1,000 mls @ 1,000 mls/hr IV BOLUS ONE Stop: 10/21/24 10:48 Last Infusion: 10/21/24 15:18 Dose: Infused Documented By: Admin: 10/21/24 11:54 Dose: 1,000 mls/hr Documented By: HAY Lactated Ringer's (Lactated Ringers) 1,000 mls @ 1,000 mls/hr IV BOLUS ONE Stop: 10/21/24 17:40 Last Infusion: 10/21/24 18:08 Dose: Infused Documented By: Admin: 10/21/24 16:51 Dose: 1,000 mls/hr Documented By: IRIS Ketorolac Tromethamine (Ketorolac 30 Mg/Ml Vial) 15 mg IV NOW ONE Stop: 10/21/24 09:50 Last Admin: 10/21/24 11:55 Dose: 15 mg Documented By: HAY Lorazepam (Lorazepam 2 Mg/Ml Inj) 0 mg IV CIWAPRN PRN; Protocol PRN Reason: Alcohol Withdrawal Lorazepam (Lorazepam 1 Mg Tablet) 0 mg PO CIWAPRN PRN; Protocol PRN Reason: Alcohol Withdrawal Multivitamins (Multivitamin 1 Tablet) 1 tab PO DAILY DEANNE Thiamine HCl (Thiamine 100 Mg Tablet) 100 mg PO DAILY DEANNE Stop: 10/25/24 09:01 Vital Signs Vital signs: Vital Signs - 8 hr 10/21/24 16:00 10/21/24 16:00 10/21/24 16:30 Pulse Rate 87 78 Respiratory Rate 18 16 Blood Pressure 156/87 H Pulse Oximetry 99 100 10/21/24 16:30 10/21/24 17:00 10/21/24 17:00 Pulse Rate 81 Respiratory Rate 20 Blood Pressure 169/92 H 183/86 H Pulse Oximetry 100 <Jaime Jacek, MD - Last Filed: 10/21/24 23:39> Course Course Narrative: 18:00 Patient care transferred to be the change of shift by Dr. Madison with surgery consultation and CT of the abdomen and pelvis with oral contrast both pending. This is a 69-year-old male patient here with increasing abdominal pain since having an umbilical hernia repair [address] the abdomen pelvis with IV contrast reveals prior gastric bypass inflammatory changes of the gastrojejunostomy with wall thickening. Suspicion for possible surgical anastomosis versus ulcer. No free air. 19:[address] data and pelvis with oral contrast this time at General surgery's request reveals no surgical problems. No bowel obstruction or drainable fluid. I discussed the patient's care with General surgery, Dr. Rodrigues who says there is no need for surgical involvement on this case. Patient is admitted to hospitalist for pancreatitis and postsurgical abdominal pain. Orders Ordered: ED Orders 10/21/24 15:16 Ictotest Urine Stat Urine Microscopic Stat 10/21/24 16:32 CT abdomen pelvis w con Stat 10/21/24 16:39 EKG-12 Lead Stat 10/21/24 20:55 Lactate (Lactic Acid) Stat Al Hydrox/Mg Hydrox/Simethicone (Mag Hydrox/Alum/Simeth 30 Ml Udc) 30 ml PO ACHS DEANNE Hydromorphone HCl (Hydromorphone Hcl 0.5 Mg/0.5 Ml Syringe) 0.5 mg IV Q2H PRN PRN Reason: Pain, Severe (7-10) Last Admin: 10/21/24 22:57 Dose: 0.5 mg Documented By: Admin: 10/21/24 20:24 Dose: 0.5 mg Documented By: SH Sodium Chloride (Normal Saline 0.9%) 1,000 mls @ 100 mls/hr IV CONT DEANNE Last Admin: 10/21/24 20:24 Dose: 100 mls/hr Documented By: SH Naloxone HCl (Naloxone 0.4 Mg/Ml Vial) 0.2 mg IV Q2MIN PRN PRN Reason: Opiate Reversal Ondansetron HCl (Ondansetron 4 Mg/2 Ml Inj) 4 mg IV NOW PRN PRN Reason: Nausea And Vomiting Last Admin: 10/21/24 11:55 Dose: 4 mg Documented By: HAY Ondansetron HCl (Ondansetron 4 Mg Odt) 4 mg PO NOW PRN PRN Reason: Nausea And Vomiting Ondansetron HCl (Ondansetron 4 Mg/2 Ml Inj) 4 mg IV Q8HR PRN PRN Reason: Nausea And Vomiting Pantoprazole Sodium (Pantoprazole 40 Mg Vial) 40 mg IV BID DEANNE Sucralfate (Sucralfate 1 Gm Tablet) 1 gm PO ACHS DEANNE Discontinued Medications Hydromorphone HCl (Hydromorphone 1 Mg Inj) 1 mg IV NOW ONE Stop: 10/21/24 15:12 Last Admin: 10/21/24 15:27 Dose: 1 mg Documented By: IRIS Hydromorphone HCl (Hydromorphone 1 Mg Inj) 1 mg IV NOW ONE Stop: 10/21/24 16:42 Last Admin: 10/21/24 16:51 Dose: 1 mg Documented By: IRIS Lactated Ringer's (Lactated Ringers) 1,000 mls @ 1,000 mls/hr IV BOLUS ONE Stop: 10/21/24 10:48 Last Infusion: 10/21/24 15:18 Dose: Infused Documented By: Admin: 10/21/24 11:54 Dose: 1,000 mls/hr Documented By: HAY Lactated Ringer's (Lactated Ringers) 1,000 mls @ 1,000 mls/hr IV BOLUS ONE Stop: 10/21/24 17:40 Last Infusion: 10/21/24 18:08 Dose: Infused Documented By: Admin: 10/21/24 16:51 Dose: 1,000 mls/hr Documented By: IRIS Ketorolac Tromethamine (Ketorolac 30 Mg/Ml Vial) 15 mg IV NOW ONE Stop: 10/21/24 09:50 Last Admin: 10/21/24 11:55 Dose: 15 mg Documented By: HAY Lorazepam (Lorazepam 2 Mg/Ml Inj) 0 mg IV CIWAPRN PRN; Protocol PRN Reason: Alcohol Withdrawal Lorazepam (Lorazepam 1 Mg Tablet) 0 mg PO CIWAPRN PRN; Protocol PRN Reason: Alcohol Withdrawal Multivitamins (Multivitamin 1 Tablet) 1 tab PO DAILY DEANNE Thiamine HCl (Thiamine 100 Mg Tablet) 100 mg PO DAILY DEANNE Stop: 10/25/24 09:01 Vital Signs Vital signs: Vital Signs - 8 hr 10/21/24 16:00 10/21/24 16:00 10/21/24 16:30 Pulse Rate 87 78 Respiratory Rate 18 16 Blood Pressure 156/87 H Pulse Oximetry 99 100 10/21/24 16:30 10/21/24 17:00 10/21/24 17:00 Pulse Rate 81 Respiratory Rate 20 Blood Pressure 169/92 H 183/86 H Pulse Oximetry 100 MDM - Abdominal Pain <Al Farhad Madison DO - Last Filed: 10/21/24 23:00> Lab Data 10/21/24 11:47 10/21/24 11:47 Labs: Lab Results 10/21/24 10/21/24 Range/Units 11:47 15:16 WBC 10.3 (4.5-11.0) X10^3/uL RBC 3.47 L (4.5-5.9) X10^6/uL Hgb 9.3 L (13.5-17.5) g/dL Hct 28.2 L (41-53) % MCV 81.2 (80-100) fL MCH 26.8 (26-34) PG MCHC 33.0 (30-36) % RDW 19.8 H (11.6-14.8) % Plt Count 421 H (150-400) X10^3/uL Neut % (Auto) 81.3 H (50-75) % Lymph % (Auto) 9.3 L (25-40) % Baker % (Auto) 8.6 (3-14) % Eos % (Auto) 0.0 L (2-4) % Baso % (Auto) 0.8 (0-2) % Neut # (Auto) 8400 H (7520-9609) /uL Lymph # (Auto) 1000 L (3894-3554) /uL Baker # (Auto) 900 (0-900) /uL Eos # (Auto) 0 (0-450) /uL Baso # (Auto) 100 (0-100) /uL Sodium 133 L (137-145) mmol/L Potassium 3.5 (3.4-5.1) mmol/L Chloride 98 (98-107) mmol/L Carbon Dioxide 22 (22-32) mmol/L BUN 22 H (9-20) mg/dL Creatinine 0.93 (0.66-1.25) mg/dL Estimated GFR > 60 (>60) mL/min BUN/Creatinine Ratio 23.7 H (6-22) Glucose 149 H (70-99) mg/dL Calcium 9.9 (8.4-10.2) mg/dL Magnesium 1.3 L (1.6-2.3) mg/dL Total Bilirubin 1.4 H (0.2-1.3) mg/dL AST 26 (17-59) IU/L ALT 28 (<50) IU/L Alkaline Phosphatase 109 (38-126) U/L Total Protein 6.8 (6.3-8.2) g/dL Albumin 3.6 (3.5-5.0) g/dL Globulin 3.2 (1.7-4.1) g/dL Albumin/Globulin Ratio 1.1 (1.0-2.8) Lipase 1704 H D (23-300) U/L Ur Bilirubin Confirm Negative (Negative) Urine RBC None seen (0-5/HPF) Urine WBC None seen (0-5/HPF) Ur Squamous Epith Cells None seen (0-5/HPF) Calcium Oxalate Crystal Few H Amorphous Sediment 3+ Urine Bacteria Few (2-10) H (None) Ur Culture Indicated? Cult not indicated Vol Urine Centrifuged 10ml (spun) Point of care testing: Urine Dip Bedside Urine Glucose Negative Bedside Urine Bilirubin + 1 Bedside Urine Ketone + 15 Urine Specific [place] 1.005 Bedside Urine Occult Blood - Negative Bedside Urine pH 6 Bedside Urine Protein +/- 15 Bedside Urine Urobilinogen 1+ 2mg Bedside Urine Nitrite - Negative Bedside Urine Leukocytes - Negative Esterase Imaging Data CT scan - abdomen/pelvis: Radiologist's Impression: [place] [address] CT Scan Report Signed Patient: Kristian Yin MR#: [id number] : 1955 Acct:[id number] Age/Sex: 69 / M Date of Service: 10/21/24 Loc: ED Accession Number: [id number] Procedure: CT abdomen pelvis w con Ordering Provider: Al Madison D.O. PROCEDURE: CT ABDOMEN PELVIS W CON INDICATIONS: abd pain /recent surgery TECHNIQUE: After the administration of intravenous contrast, axial sections acquired from the lung bases to the pubic symphysis. Coronal and sagittal reformats were performed. For radiation dose reduction, the following was used: automated exposure control, adjustment of mA and/or kV according to patient size. COMPARISON: [facility], CT, CT ABDOMEN PELVIS W CON, 10/15/2024, 10:19. FINDINGS: Image quality: Diagnostic. Lower Chest: No significant findings. ABDOMEN: Liver: No solid mass. Gallbladder: Absent. Biliary ducts: No biliary dilation. Pancreas: No ductal dilation. Spleen: Size is within normal limits. Adrenal Glands: No adrenal nodules. Kidneys and Ureters: No hydronephrosis. No solid mass. No complex renal cystic lesion which requires follow up. 1.2 x 1.0 cm nonobstructing right-sided nephrolithiasis. Stomach and Bowel: Prior gastric bypass. There are significant inflammatory changes at the gastrojejunostomy, with gastric, duodenal and jejunal wall thickening. Along the right lateral aspect of the proximal jejunum, there is a region of wall thickening which demonstrates incomplete wall enhancement (series 2, image 35). Peritoneum: No abnormal intraperitoneal fluid. No free air. Ventral Wall: Interval ventral hernia repair. Trace subcutaneous gas. Abdominal Nodes: No retroperitoneal or mesenteric adenopathy by size criteria. Vessels: Aorta and inferior vena cava are normal in size. Stable diminutive appearance of the central splenic vein. PELVIS: Pelvic Organs: Unremarkable. Bladder: No bladder wall thickening, accounting for underdistention. Pelvic Nodes: No enlarged lymph nodes. Miscellaneous: No inguinal hernias are seen. Bones: No aggressive osseous abnormality. IMPRESSION: Prior gastric bypass. Significant inflammatory changes at the gastrojejunostomy, with significant wall thickening and adjacent fat stranding. There is abnormal enhancement along the right lateral aspect of the anastomosis in the proximal jejunum. Differential for this process includes an ulcer versus dehiscence of the surgical anastomosis. No free air to suggest perforation. Interval hernia repair, without small bowel obstruction. Dictated by: Matthew García M.D. on 10/21/2024 at 12:57 Approved by: Matthew García M.D. on 10/21/2024 at 13:02 MDM Narrative Medical decision making narrative: Vital signs, generation engineer note, medication list, previous ER visits and all imaging studies reviewed. Ct scan with IV contrast IMPRESSION: Prior gastric bypass. Significant inflammatory changes at the gastrojejunostomy, with significant wall thickening and adjacent fat stranding. There is abnormal enhancement along the right lateral aspect of the anastomosis in the proximal jejunum. Differential for this process includes an ulcer versus dehiscence of the surgical anastomosis. No free air to suggest perforation. Ct scan with Oral contrast per surgery md request IMPRESSION: Moderate edema at the proximal Rgey limb of the bypass. This could represent ulcer disease, focal gastritis, or sutural dehiscence. No extravasation of ingested oral contrast is seen. No bowel obstruction. No drainable abdominal fluid collection. Differential dx - pancreatitis, perforation, bleeding ulcer, post op pain. Case d/w who will be consult on case and admit to hospistalist service. <Jaime Read MD - Last Filed: 10/21/24 23:39> Lab Data Labs: Lab Results 10/21/24 10/21/24 Range/Units 11:47 15:16 WBC 10.3 (4.5-11.0) X10^3/uL RBC 3.47 L (4.5-5.9) X10^6/uL Hgb 9.3 L (13.5-17.5) g/dL Hct 28.2 L (41-53) % MCV 81.2 (80-100) fL MCH 26.8 (26-34) PG MCHC 33.0 (30-36) % RDW 19.8 H (11.6-14.8) % Plt Count 421 H (150-400) X10^3/uL Neut % (Auto) 81.3 H (50-75) % Lymph % (Auto) 9.3 L (25-40) % Baker % (Auto) 8.6 (3-14) % Eos % (Auto) 0.0 L (2-4) % Baso % (Auto) 0.8 (0-2) % Neut # (Auto) 8400 H (6117-4954) /uL Lymph # (Auto) 1000 L (5196-6188) /uL Baker # (Auto) 900 (0-900) /uL Eos # (Auto) 0 (0-450) /uL Baso # (Auto) 100 (0-100) /uL Sodium 133 L (137-145) mmol/L Potassium 3.5 (3.4-5.1) mmol/L Chloride 98 (98-107) mmol/L Carbon Dioxide 22 (22-32) mmol/L BUN 22 H (9-20) mg/dL Creatinine 0.93 (0.66-1.25) mg/dL Estimated GFR > 60 (>60) mL/min BUN/Creatinine Ratio 23.7 H (6-22) Glucose 149 H (70-99) mg/dL Calcium 9.9 (8.4-10.2) mg/dL Magnesium 1.3 L (1.6-2.3) mg/dL Total Bilirubin 1.4 H (0.2-1.3) mg/dL AST 26 (17-59) IU/L ALT 28 (<50) IU/L Alkaline Phosphatase 109 (38-126) U/L Total Protein 6.8 (6.3-8.2) g/dL Albumin 3.6 (3.5-5.0) g/dL Globulin 3.2 (1.7-4.1) g/dL Albumin/Globulin Ratio 1.1 (1.0-2.8) Lipase 1704 H D (23-300) U/L Ur Bilirubin Confirm Negative (Negative) Urine RBC None seen (0-5/HPF) Urine WBC None seen (0-5/HPF) Ur Squamous Epith Cells None seen (0-5/HPF) Calcium Oxalate Crystal Few H Amorphous Sediment 3+ Urine Bacteria Few (2-10) H (None) Ur Culture Indicated? Cult not indicated Vol Urine Centrifuged 10ml (spun) Point of care testing: Urine Dip Bedside Urine Glucose Negative Bedside Urine Bilirubin + 1 Bedside Urine Ketone + 15 Urine Specific [place] 1.005 Bedside Urine Occult Blood - Negative Bedside Urine pH 6 Bedside Urine Protein +/- 15 Bedside Urine Urobilinogen 1+ 2mg Bedside Urine Nitrite - Negative Bedside Urine Leukocytes - Negative Esterase Imaging Data CT abdomen and pelvis with oral contrast: Radiologist's Impression: IMPRESSION: Moderate edema at the proximal Grey limb of the bypass. This could represent ulcer disease, focal gastritis, or sutural dehiscence. No extravasation of ingested oral contrast is seen. No bowel obstruction. No drainable abdominal fluid collection. Discharge Plan Departure Patient Disposition: Admitted as Observation Clinical Impression: History of gastric bypass, History of gastric ulcer, Acute postoperative abdominal pain, Pancreatitis Admit Date/Time: 10/21/24 17:00 Admit Provider: Edgar Blanco
--- NOTE | 2024-10-21 09:49 | DI.CT.S_ITS ---
PROCEDURE: CT ABDOMEN PELVIS W CON INDICATIONS: abd pain /recent surgery TECHNIQUE: After the administration of intravenous contrast, axial sections acquired from the lung bases to the pubic symphysis. Coronal and sagittal reformats were performed. For radiation dose reduction, the following was used: automated exposure control, adjustment of mA and/or kV according to patient size. COMPARISON: [facility], CT, CT ABDOMEN PELVIS W CON, 10/15/2024, 10:19. FINDINGS: Image quality: Diagnostic. Lower Chest: No significant findings. ABDOMEN: Liver: No solid mass. Gallbladder: Absent. Biliary ducts: No biliary dilation. Pancreas: No ductal dilation. Spleen: Size is within normal limits. Adrenal Glands: No adrenal nodules. Kidneys and Ureters: No hydronephrosis. No solid mass. No complex renal cystic lesion which requires follow up. 1.2 x 1.0 cm nonobstructing right-sided nephrolithiasis. Stomach and Bowel: Prior gastric bypass. There are significant inflammatory changes at the gastrojejunostomy, with gastric, duodenal and jejunal wall thickening. Along the right lateral aspect of the proximal jejunum, there is a region of wall thickening which demonstrates incomplete wall enhancement (series 2, image 35). Peritoneum: No abnormal intraperitoneal fluid. No free air. Ventral Wall: Interval ventral hernia repair. Trace subcutaneous gas. Abdominal Nodes: No retroperitoneal or mesenteric adenopathy by size criteria. Vessels: Aorta and inferior vena cava are normal in size. Stable diminutive appearance of the central splenic vein. PELVIS: Pelvic Organs: Unremarkable. Bladder: No bladder wall thickening, accounting for underdistention. Pelvic Nodes: No enlarged lymph nodes. Miscellaneous: No inguinal hernias are seen. Bones: No aggressive osseous abnormality. IMPRESSION: Prior gastric bypass. Significant inflammatory changes at the gastrojejunostomy, with significant wall thickening and adjacent fat stranding. There is abnormal enhancement along the right lateral aspect of the anastomosis in the proximal jejunum. Differential for this process includes an ulcer versus dehiscence of the surgical anastomosis. No free air to suggest perforation. Interval hernia repair, without small bowel obstruction. Dictated by: Matthew García M.D. on 10/21/2024 at 12:57 Approved by: Matthew García M.D. on 10/21/2024 at 13:02
--- NOTE | 2024-10-21 10:11 | EKG_ITS ---
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
[2024-10-21] MEDS: LACTATED RINGERS 1,000 ML 1000 ML IV ×2 (11:54→16:51)
[2024-10-21] MEDS: ONDANSETRON 4 MG/2 ML INJ IV (11:55)
[2024-10-21] MEDS: KETOROLAC 30 MG/ML VIAL 15 MG IV (11:55)
[2024-10-21 12:10] LABS: Alanine Aminotransferase 28 IU/L (<50); Albumin 3.6 g/dL (3.5-5.0); Albumin Globulin Ratio 1.1 (1.0-2.8); Alkaline Phosphatase 109 U/L (38-126); Blood Urea Nitrogen 22 mg/dL (9-20); Calcium 9.9 mg/dL (8.4-10.2); Carbon Dioxide 22 mmol/L (22-32); Chloride 98 mmol/L (98-107); Estimated Glomerular Filt Rate > 60 mL/min (>60); Globulin 3.2 g/dL (1.7-4.1); Glucose 149 mg/dL (70-99); HEMOLYSIS < 15 (0-50); Lipase 1704 U/L (23-300); Potassium 3.5 mmol/L (3.4-5.1); Sodium 133 mmol/L (137-145); Total Protein 6.8 g/dL (6.3-8.2)
[2024-10-21 12:11] LABS: Add Manual Diff / Slide Review NO; Hematocrit 28.2 % (41-53); Hemoglobin 9.3 g/dL (13.5-17.5); Lymphocytes Absolute Auto 1000 /uL (1100-4500); Mean Corpuscular HGB Conc 33.0 % (30-36); Mean Corpuscular Hemoglobin 26.8 PG (26-34); Mean Corpuscular Volume 81.2 fL (80-100); Platelet Count 421 X10^3/uL (150-400)
[2024-10-21] MEDS: HYDROMORPHONE 1 MG INJ IV ×2 (15:27→16:51)
[2024-10-21 15:37] LABS: Culture Indicated Urine Cult Not Indicated
[2024-10-21 15:38] LABS: Ictotest Urine Negative (Negative)
--- NOTE | 2024-10-21 16:32 | DI.CT.S_ITS ---
PROCEDURE: CT ABDOMEN PELVIS W CON INDICATIONS: ORAL CONTRAST ONLY PER SURGEON TECHNIQUE: After the administration of intravenous contrast, axial sections acquired from the lung bases to the pubic symphysis. Coronal and sagittal reformats were performed. For radiation dose reduction, the following was used: automated exposure control, adjustment of mA and/or kV according to patient size. COMPARISON: [facility], CT, CT ABDOMEN PELVIS W CON, 10/21/2024, 12:14. FINDINGS: Image quality: Diagnostic Lower chest: Unremarkable lung bases Coronary calcifications. Small hiatal hernia. Liver: Solid organs are better assessed on prior contrast enhanced imaging. No contour deforming mass. Gallbladder and biliary system: Gallbladder is not seen. No biliary ductal dilation. Pancreas: Parenchymal atrophy without ductal dilation Spleen: Nonenlarged Adrenals: No discrete nodules Kidneys: Excreted contrast is seen in the collecting system. Right-sided stone is present at the lower aspect. Vessels and lymph nodes: No abdominal aortic aneurysm. [id number] aortoiliac atherosclerotic calcifications. Bowel and peritoneum: Grey-en-Y bag sick bypass changes. No obstruction is seen. Moderate colonic fecal loading. Moderate edema again noted at the proximal Grey limb. There is no free peritoneal oral contrast identified. Body wall: Postsurgical changes. Mild rectus diastasis. No bowel obstruction at this location. Pelvis: Excreted contrast is seen in the urinary bladder. Bladder trabeculations are present. Bones: No aggressive appearing osseous abnormality. Lumbosacral fusion hardware. IMPRESSION: Moderate edema at the proximal Grey limb of the bypass. This could represent ulcer disease, focal gastritis, or sutural dehiscence. No extravasation of ingested oral contrast is seen. No bowel obstruction. No drainable abdominal fluid collection. Other findings above on this noncontrast imaging. Dictated by: Mariano Brooke M.D. on 10/21/2024 at 18:10 Approved by: Mariano Brooke M.D. on 10/21/2024 at 18:15
--- NOTE | 2024-10-21 16:33 | EKG_ITS ---
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
--- NOTE | 2024-10-21 16:39 | EKG_ITS ---
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
--- NOTE | 2024-10-21 17:01 | PC.NURSE ---
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
--- NOTE | 2024-10-21 17:42 | PM.HP.1 ---
History of Present Illness History of Present Illness Date Patient Seen: 10/21/24 Chief complaint: Stomach pain x 7 days Narrative: Patient was a 69-year-old male with abdominal pain for the last week. He was recently discharged after having EGD revealing a marginal ulcer near his gastrojejunal anastomosis from his prior gastric bypass. Since discharge, he was had persistent pain in the abdomen. He also underwent repair of a recurrent non incarcerated incisional hernia on October 17, during his previous admission. General surgeon asked for a 2nd CT scan with oral contrast which is happening around 1800. S: He was had persistent pain which has been periumbilical for the last week. No bowel movements, but positive flatus. He has been eating and denies nausea or abdominal distention. [facility] Medical History GERD (gastroesophageal reflux disease) HNP (herniated nucleus pulposus), lumbar History of bleeding ulcers Hypertriglyceridemia Non-insulin dependent type 2 diabetes mellitus HTN (hypertension) Nephrolithiasis Degenerative disc disease Surgical History History of vasectomy History of colonoscopy History of cholecystectomy History of gastric bypass History of cervical spinal surgery Status post lumbar surgery Family History Mother No known health problems Father No known health problems Social History household members: spouse and family alcohol intake: former Meds Home Medications and Allergies Home Medications ?Medication ?Instructions ?Recorded ?Confirmed ?Type multivitamin 1 tab PO DAILY 09/10/18 10/14/24 History acetaminophen 325 mg tablet 650 mg (2 x 325 mg) PO Q6H PRN 01/18/23 10/14/24 Rx Fever/Mild Pain (1-3) #50 tabs nitroglycerin 0.4 mg sublingual 0.4 mg sublingual [id number] PRN 01/18/23 10/14/24 Rx tablet (Nitrostat) Chest Pain #30 tabs metformin 1,000 mg tablet 500 mg PO BID 09/15/23 10/14/24 History ferrous sulfate 325 mg (65 mg 325 mg PO DAILY #30 tabs 04/28/24 10/14/24 Rx iron) tablet hydrocodone 5 mg-acetaminophen 325 1 tab PO Q4-6H PRN pain #12 tabs 09/29/24 10/14/24 Rx mg tablet pantoprazole 40 mg tablet,delayed 40 mg PO DAILY 10/14/24 10/14/24 History release pantoprazole 40 mg granules 40 mg PO BID #60 ea 10/17/24 Rx delayed-release for susp in packet (Protonix) sucralfate 1 gram tablet 1 gm PO ACHS #120 tabs 10/17/24 Rx Allergies Allergy/AdvReac Type Severity Reaction Status Date / Time NSAIDS (Non-Steroidal AdvReac Mild CAN TAKE, Verified 10/21/24 09:46 Anti-Inflamma (NSAIDS BUT TRIES (NON-STEROIDAL ANTI-INFLAMMA) TO AVOID R/T GASTRIC BYPASS Review of Systems Review of Systems Narrative: All else reviewed and otherwise unremarkable except as noted in the history and physical. Exam Vital Signs (past 8 hours): - 10/21/24 09:46 10/21/24 09:46 10/21/24 09:46 Temperature 98.1 F Pulse Rate 88 90 Respiratory Rate 18 18 Blood Pressure 126/77 126/77 Pulse Oximetry 100 100 Oxygen Delivery Method Room Air 10/21/24 10:00 10/21/24 10:30 10/21/24 11:00 Temperature Pulse Rate 85 87 93 H Respiratory Rate 17 16 23 Blood Pressure Pulse Oximetry 100 100 100 Oxygen Delivery Method 10/21/24 11:30 10/21/24 12:00 10/21/24 12:00 Temperature Pulse Rate 116 H 74 Respiratory Rate 22 24 Blood Pressure 179/105 H Pulse Oximetry 100 100 Oxygen Delivery Method 10/21/24 12:22 10/21/24 12:22 10/21/24 12:30 Temperature Pulse Rate 77 Respiratory Rate 15 Blood Pressure 203/80 H 178/77 H Pulse Oximetry Oxygen Delivery Method 10/21/24 12:30 10/21/24 13:00 10/21/24 13:00 Temperature Pulse Rate 71 78 Respiratory Rate 14 15 Blood Pressure 151/69 H Pulse Oximetry 98 100 Oxygen Delivery Method 10/21/24 13:30 10/21/24 13:30 10/21/24 15:15 Temperature Pulse Rate 79 85 Respiratory Rate 14 16 Blood Pressure 171/85 H Pulse Oximetry 100 100 Oxygen Delivery Method 10/21/24 15:15 10/21/24 15:30 10/21/24 15:30 Temperature Pulse Rate 87 Respiratory Rate 18 Blood Pressure 182/86 H 180/90 H Pulse Oximetry 100 Oxygen Delivery Method 10/21/24 16:00 10/21/24 16:00 10/21/24 16:30 Temperature Pulse Rate 87 78 Respiratory Rate 18 16 Blood Pressure 156/87 H Pulse Oximetry 99 100 Oxygen Delivery Method 10/21/24 16:30 Temperature Pulse Rate Respiratory Rate Blood Pressure 169/92 H Pulse Oximetry Oxygen Delivery Method Oxygen Delivery Method Room Air Narrative Exam Narrative: NAD, alert and oriented, fluent speech, calm. Normocephalic skull, EOMI, anicteric sclera, symmetric pupils. Oropharynx unremarkable, no droop. Neck supple, midline trachea, no adenopathy. Lungs clear, normal rate and effort. Heart regular, no murmur gallop or rub. Abdomen is soft, non distended and non tender. Dressing over incisional hernia wound. No specific tenderness in this area. Extremities are free of edema. Skin is free of rash or lesions. Joints are not swollen or deformed. Judgment appears to be normal. Objective ECG Impression: Intervals [place] Rate: 83 P: 46 MD: 156 QRS: -55 QRSD: 92 T: 88 QT: 360 QTc: 423 Interpretive Statements Sinus rhythm with premature supraventricular complexes Left anterior fascicular block Left ventricular hypertrophy with repolarization abnormality ( R in aVL ) Imaging CT scan - abdomen: Radiologist's impression: Prior gastric bypass. Significant inflammatory changes at the gastrojejunostomy, with significant wall thickening and adjacent fat stranding. There is abnormal enhancement along the right lateral aspect of the anastomosis in the proximal jejunum. Differential for this process includes an ulcer versus dehiscence of the surgical anastomosis. No free air to suggest perforation. Interval hernia repair, without small bowel obstruction. Labs 10/21/24 11:47 10/21/24 11:47 Labs: Laboratory Results - last 24 hr 10/21/24 10/21/24 11:47 15:16 WBC 10.3 RBC 3.47 L Hgb 9.3 L Hct 28.2 L MCV 81.2 MCH 26.8 MCHC 33.0 RDW 19.8 H Plt Count 421 H Neut % (Auto) 81.3 H Lymph % (Auto) 9.3 L [place] % (Auto) 8.6 Eos % (Auto) 0.0 L Baso % (Auto) 0.8 Neut # (Auto) 8400 H Lymph # (Auto) 1000 L [place] # (Auto) 900 Eos # (Auto) 0 Baso # (Auto) 100 Sodium 133 L Potassium 3.5 Chloride 98 Carbon Dioxide 22 BUN 22 H Creatinine 0.93 Estimated GFR > 60 BUN/Creatinine Ratio 23.7 H Glucose 149 H Calcium 9.9 Total Bilirubin 1.4 H AST 26 ALT 28 Alkaline Phosphatase 109 Total Protein 6.8 Albumin 3.6 Globulin 3.2 Albumin/Globulin Ratio 1.1 Lipase 1704 H D Ur Bilirubin Confirm Negative Urine RBC None seen Urine WBC None seen Ur Squamous Epith Cells None seen Calcium Oxalate Crystal Few H Amorphous Sediment 3+ Urine Bacteria Few (2-10) H Ur Culture Indicated? Cult not indicated Vol Urine Centrifuged 10ml (spun) Assessment & Plan Assessment & Plan narrative: 1. Abdominal pain with known ulcer near his anastomotic site. 2. Recent hernia repair, stable. 3. Recent GI bleed related to ulcers mentioned above. 4. DM 2, stable. 5. Hypertension, stable. 6. Depression, stable. PLAN: -NPO, and observation tonight. -analgesia and surgical consultation. -repeat CT scan with contrast this evening to be reviewed by surgeon, concern for possible progression of ulcer and perforation or other etiology of pain. -the concern is whether or not there has been progression or perforation of the ulcer. -sliding scale insulin. Anticipate 1 night in the hospital, supports observation status. Full resuscitation. Time-Based Coding :: 35 min spent with patient and on the chart (including review of chart, obtaining history, exam, reviewing outside data, placing orders, documenting exam and treatment plan, and counseling patient) on 10/21. Quality MIPS - Admit I confirm the patient?s Advance Care Plan is present, Code status is documented, Surrogate decision maker is in patient?s record [If Yes, STOP here]: Yes MIPS - Meds 'Current medications' to include all prescriptions, [id number] products, herbals, cannabis/cannabidiol products, and vitamin/mineral/dietary (nutritional) supplements. I have utilized all available resources to obtain, update, or review the patient?s current medications. [If Yes, STOP here]: Yes
[2024-10-21 19:25] LABS: Magnesium 1.3 mg/dL (1.6-2.3)
[2024-10-21] MEDS: SODIUM CHLORIDE 0.9% 1,000 ML 100 ML IV (20:24)
[2024-10-21 21:12] LABS: Lactate (Lactic Acid) 0.9 mmol/L (0.7-2.1)
--- NOTE | 2024-10-21 21:56 | PM.HP.IH.1 ---
History of Present Illness History of Present Illness Date Patient Seen: 10/21/24 Time Patient Seen: 10:00 Date of Onset of Symptoms: 10/18/24 Chief complaint: Stomach pain x 7 days Narrative: Patient is a 69-year-old white male presents to the emergency room with abdominal pain which she states started possibly 4-7 days ago but patient is a very difficult historian. Patient was seen on 10/14/2024 was noted to have nausea vomiting with hematemesis and black melanotic stools underwent an EGD which showed outlet ulcer on a gastrojejunostomy anastomosis from previous gastric bypass. Patient was maximally treated on this had some further abdominal pain repeated another CT scan which showed an incisional hernia which was approximately 2 cm in size with a proximally 5 cm of small bowel within this. Patient desired to have this done underwent a incisional herniorrhaphy on 10/17/2024 patient was discharged that day. Patient presents back states he is having different abdominal pain this appears to be in the epigastric area periumbilical. Patient was worked up in the ER had a WBC of 10.3 hemoglobin is 9.3 hematocrit is 28.2 platelets are 4 in 21,000 sodium is 133 potassium is 3.8 chloride 98 bicarb is 22 BUN is 22 creatinine 0.93 random blood sugar is 144 patient was noted to have a total bilirubin of 1.2 normal LFTs but patient was noted to have a lipase of 1704. Patient had a repeat CAT scan done in the ER which showed no acute findings with this was done with oral contrast which showed no extravasation of contrast or worsening of the ulcer no obstructive symptoms were noted. I was asked see the patient for surgical evaluation. Allergies: NSAIDs Medications: See med list patient was also taking Protonix Carafate nitroglycerin and hydrocodone Past medical history: Corrective lenses, hypertension, hyperlipidemia, GERD, history of peptic ulcer disease, hmg-ejmretv-spjnvkevo diabetes mellitus, degenerative joint disease nephrolithiasis history of colon polyps, history of gastric bypass surgery with a anastomotic ulcer with a history of a perforation of the ulcer with subsequent repair and drainage of subhepatic abscess. Patient recently had an EGD which showed a large channel ulcer at the anastomosis but no signs of active bleeding. Patient denies any other heart lungs digestive musculoskeletal neurological seizure disorder psychiatric problems risks of infectious disease HIV or AIDS. Past surgical history: History of vasectomy, laparoscopic cholecystectomy, back surgery, gastric bypass surgery in 2003, repair of perforated gastric ulcer with drainage of subhepatic abscess, EGD colonoscopy 07/21/2024 was noted to have a channel ulcer normal colon EGD 10/14/2024 with a channel ulcer nonbleeding Social history: History of tobacco abuse 1 pack per day times 57 years. Three years ago, history of alcohol abuse and use. Three years ago, denies any recreational drug usage Vitals: Temperature is 98.1? pulse 85 respirations 16 BP is 182/86 SaO2 is 100%. Patient is 5 ft 6 inches 162 lb Head is normocephalic eyes PERRLA EOMI is intact nares clear septum midline oropharyngeal cavity is in moderate repair some gum retraction heart regular rate and rhythm without murmurs lungs are clear but diminished in the bases poor inspiratory and expiratory effort poor chest wall motion noted. Abdomen is soft nondistended previous surgical site is well healed no signs infection inflammation all sutures were buried Steri-Strips are still in place. Patient has some hypoactive bowel sounds negative Blas's Self great turns Juárez's McBurney's patient has some epigastric tenderness but no rebound or guarding. Musculoskeletal poor muscle tone and strength equal bilaterally no gross deficits elicited. Impression: Abdominal pain epigastric times 4-7 days Postop day 4. Hypogastric incisional hernia Postop day 7. EGD for upper GI bleed with anastomotic ulcer no further nausea vomiting melena Hypertension Hyperlipidemia GERD with noncompliance with ulcerogenic foods meds activities diet drinking lots of carbonated beverages History of tobacco abuse 1 pack per day times 57 years. Three years ago History of alcohol use. Three years ago H&H stable no need for transfusions Plan: Discussed with patient the findings we will give NPO with meds only patient will be followed closely if lipase decreases would start on diet we will continue with peptic ulcer disease treatment repeat laboratory in the morning we will follow patient closely no need for emergent surgical intervention at this time patient if continues to have elevated pancreatic enzymes may warrant an MRCP patient has had gastric bypass so doing ERCP would be very difficult if 1 is needed would warrant transfer to a tertiary center. All questions were answered the patient and 's satisfaction. [facility] Medical History GERD (gastroesophageal reflux disease) HNP (herniated nucleus pulposus), lumbar History of bleeding ulcers Hypertriglyceridemia Non-insulin dependent type 2 diabetes mellitus HTN (hypertension) Nephrolithiasis Degenerative disc disease Surgical History History of vasectomy History of colonoscopy History of cholecystectomy History of gastric bypass History of cervical spinal surgery Status post lumbar surgery Family History Mother No known health problems Father No known health problems Social History household members: spouse and family alcohol intake: former Meds Home Medications and Allergies Home Medications ?Medication ?Instructions ?Recorded ?Confirmed ?Type multivitamin 1 tab PO DAILY 09/10/18 10/14/24 History acetaminophen 325 mg tablet 650 mg (2 x 325 mg) PO Q6H PRN 01/18/23 10/14/24 Rx Fever/Mild Pain (1-3) #50 tabs nitroglycerin 0.4 mg sublingual 0.4 mg sublingual [id number] PRN 01/18/23 10/14/24 Rx tablet (Nitrostat) Chest Pain #30 tabs metformin 1,000 mg tablet 500 mg PO BID 09/15/23 10/14/24 History ferrous sulfate 325 mg (65 mg 325 mg PO DAILY #30 tabs 04/28/24 10/14/24 Rx iron) tablet hydrocodone 5 mg-acetaminophen 325 1 tab PO Q4-6H PRN pain #12 tabs 09/29/24 10/14/24 Rx mg tablet pantoprazole 40 mg tablet,delayed 40 mg PO DAILY 10/14/24 10/14/24 History release pantoprazole 40 mg granules 40 mg PO BID #60 ea 10/17/24 Rx delayed-release for susp in packet (Protonix) sucralfate 1 gram tablet 1 gm PO ACHS #120 tabs 10/17/24 Rx Allergies Allergy/AdvReac Type Severity Reaction Status Date / Time NSAIDS (Non-Steroidal AdvReac Mild CAN TAKE, Verified 10/21/24 09:46 Anti-Inflamma (NSAIDS BUT TRIES (NON-STEROIDAL ANTI-INFLAMMA) TO AVOID R/T GASTRIC BYPASS Exam Vital Signs (past 8 hours): - 10/21/24 15:15 10/21/24 15:15 10/21/24 15:30 Temperature Pulse Rate 85 87 Respiratory Rate 16 18 Blood Pressure 182/86 H Pulse Oximetry 100 100 Oxygen Delivery Method Oxygen Flow Rate 10/21/24 15:30 10/21/24 16:00 10/21/24 16:00 Temperature Pulse Rate 87 Respiratory Rate 18 Blood Pressure 180/90 H 156/87 H Pulse Oximetry 99 Oxygen Delivery Method Oxygen Flow Rate 10/21/24 16:30 10/21/24 16:30 10/21/24 17:00 Temperature Pulse Rate 78 81 Respiratory Rate 16 20 Blood Pressure 169/92 H Pulse Oximetry 100 100 Oxygen Delivery Method Oxygen Flow Rate 10/21/24 17:00 10/21/24 17:30 10/21/24 17:31 Temperature Pulse Rate 83 Respiratory Rate 20 Blood Pressure 183/86 H 186/101 H Pulse Oximetry 100 Oxygen Delivery Method Oxygen Flow Rate 10/21/24 17:31 10/21/24 17:32 10/21/24 17:32 Temperature Pulse Rate 86 81 Respiratory Rate 24 Blood Pressure 211/88 H Pulse Oximetry 100 100 Oxygen Delivery Method Oxygen Flow Rate 10/21/24 17:48 10/21/24 17:48 10/21/24 18:00 Temperature Pulse Rate 76 84 Respiratory Rate 22 Blood Pressure 189/85 H Pulse Oximetry 100 100 Oxygen Delivery Method Oxygen Flow Rate 10/21/24 18:00 10/21/24 18:55 Temperature 98.1 F Pulse Rate 65 Respiratory Rate 20 Blood Pressure 160/92 H Pulse Oximetry 94 Oxygen Delivery Method Room Air Oxygen Flow Rate 0 Oxygen Delivery Method Room Air Oxygen Flow Rate 0 Objective Labs 10/21/24 11:47 10/21/24 11:47 Labs: Laboratory Results - last 24 hr 10/21/24 10/21/24 10/21/24 11:47 15:16 20:55 WBC 10.3 RBC 3.47 L Hgb 9.3 L Hct 28.2 L MCV 81.2 MCH 26.8 MCHC 33.0 RDW 19.8 H Plt Count 421 H Neut % (Auto) 81.3 H Lymph % (Auto) 9.3 L [place] % (Auto) 8.6 Eos % (Auto) 0.0 L Baso % (Auto) 0.8 Neut # (Auto) 8400 H Lymph # (Auto) 1000 L [place] # (Auto) 900 Eos # (Auto) 0 Baso # (Auto) 100 Sodium 133 L Potassium 3.5 Chloride 98 Carbon Dioxide 22 BUN 22 H Creatinine 0.93 Estimated GFR > 60 BUN/Creatinine Ratio 23.7 H Glucose 149 H Lactate 0.9 Calcium 9.9 Magnesium 1.3 L Total Bilirubin 1.4 H AST 26 ALT 28 Alkaline Phosphatase 109 Total Protein 6.8 Albumin 3.6 Globulin 3.2 Albumin/Globulin Ratio 1.1 Lipase 1704 H D Ur Bilirubin Confirm Negative Urine RBC None seen Urine WBC None seen Ur Squamous Epith Cells None seen Calcium Oxalate Crystal Few H Amorphous Sediment 3+ Urine Bacteria Few (2-10) H Ur Culture Indicated? Cult not indicated Vol Urine Centrifuged 10ml (spun) Assessment & Plan Time-Based Coding :: [TOTAL MINUTES] spent with patient and on the chart (including review of chart, obtaining history, exam, reviewing outside data, placing orders, documenting exam and treatment plan, and counseling patient) on [DATE]. PROFEE Veterinary Technician Instructor Document charge(s): Yes
[2024-10-22] VITALS (8 sets, daily range): BP systolic 124–147; BP diastolic 65–80; PULSE 72–90; RESP 12–20; TEMP 35.9–36.7; O2SAT 97–100
[2024-10-22] MEDS: SODIUM CHLORIDE 0.9% 1,000 ML 100 ML IV ×2 (04:21→14:42)
--- NOTE | 2024-10-22 07:50 | DI.ECHO.S_ITS ---
[facility] : : [address] : : [place] : : [id number] : : Phone: [phone] Echocardiogram Report + + :Name: ASHLEY WALDRON Study Date: 10/24/2024 Height: 66 in : :[facility] ReadingLocation: Weight: 164 lb: : Gender: Male BSA: 1.8 m2 : :: 1955 Age: 69 yrs BP: 99/51 mmHg: :Reason For Study: CHEST PAIN : :Ordering Physician: RISA, : :KLEVER Brown Performed By: Joss Gandhi : :Referring: KLEVER LORD : + + Interpretation Summary This is a limited study. - The left ventricular contractility is normal. Estimated ejection fraction is greater than 55% with no segmental wall motion abnormalities. No LVH. Unable to comment on diastolic function. - No significant mitral and tricuspid regurgitation or stenosis noted. - No obvious intracardiac masses nor thrombi. - In limited views, the right ventricular contractility is normal. - No hemodynamically significant pericardial effusion noted. Conclusion: Normal biventricular systolic function. Procedure: The study quality was technically adequate. A two-dimensional transthoracic echocardiogram with color flow Doppler was performed. The patient was in normal sinus rhythm during the exam. Left Ventricle: The left ventricle is normal in size and wall thickness. The ejection fraction is estimated to be 55-60%. Mitral Valve: There is trace mitral regurgitation. MMode/2D Measurements & Calculations LVIDd: 5.2 cm LVIDs: 3.6 cm FS: 32.0 % IVSd: 0.97 cm LVPWd: 1.0 cm LV dougherty. diameter/BSA (cm/m^2): 2.9 LV sys. diameter/BSA (cm/m^2): 1.9 Reading Physician:MARIOLA
--- NOTE | 2024-10-22 07:53 | PM.PN.1 ---
Subjective Subjective Interval history: S: He continues to have lower abdominal pain which has midline. He also noted some chest pressure today. An ECG was obtained which was nonacute. On nitro was given without change. He was no history of CAD. He denies any dyspnea. I discussed his current imaging and physical findings with the surgeon [id number]. Exam Vital Signs (past 8 hours): - 10/22/24 03:00 Temperature 97.2 F L Pulse Rate 80 Respiratory Rate 20 Blood Pressure 141/78 H Pulse Oximetry 99 Oxygen Flow Rate 0 Oxygen Delivery Method Room Air Oxygen Flow Rate 0 Narrative Exam Narrative: NAD, alert and oriented. Fluent speech. Lungs are clear, normal rate and effort. Heart is regular, no murmur gallop or rub. Abdomen is soft, non distended. Mild tenderness of the lower abdomen. Extremities are free of edema. Objective ECG Impression: Sinus rhythm with frequent and consecutive premature ventricular complexes Pulmonary disease pattern Incomplete right bundle branch block Left anterior fascicular block Nonspecific ST abnormality Imaging CT scan - abdomen: Radiologist's impression: Moderate edema at the proximal Grey limb of the bypass. This could represent ulcer disease, focal gastritis, or sutural dehiscence. No extravasation of ingested oral contrast is seen. No bowel obstruction. No drainable abdominal fluid collection. Other findings above on this noncontrast imaging. Labs 10/21/24 11:47 10/22/24 08:28 Labs: Laboratory Results - last 24 hr 10/21/24 10/21/24 10/21/24 11:47 15:16 20:55 WBC 10.3 RBC 3.47 L Hgb 9.3 L Hct 28.2 L MCV 81.2 MCH 26.8 MCHC 33.0 RDW 19.8 H Plt Count 421 H Neut % (Auto) 81.3 H Lymph % (Auto) 9.3 L [place] % (Auto) 8.6 Eos % (Auto) 0.0 L Baso % (Auto) 0.8 Neut # (Auto) 8400 H Lymph # (Auto) 1000 L [place] # (Auto) 900 Eos # (Auto) 0 Baso # (Auto) 100 Sodium 133 L Potassium 3.5 Chloride 98 Carbon Dioxide 22 BUN 22 H Creatinine 0.93 Estimated GFR > 60 BUN/Creatinine Ratio 23.7 H Glucose 149 H Lactate 0.9 Calcium 9.9 Magnesium 1.3 L Total Bilirubin 1.4 H AST 26 ALT 28 Alkaline Phosphatase 109 Total Protein 6.8 Albumin 3.6 Globulin 3.2 Albumin/Globulin Ratio 1.1 Lipase 1704 H D Ur Bilirubin Confirm Negative Urine RBC None seen Urine WBC None seen Ur Squamous Epith Cells None seen Calcium Oxalate Crystal Few H Amorphous Sediment 3+ Urine Bacteria Few (2-10) H Ur Culture Indicated? Cult not indicated Vol Urine Centrifuged 10ml (spun) PFSH Medical History GERD (gastroesophageal reflux disease) HNP (herniated nucleus pulposus), lumbar History of bleeding ulcers Hypertriglyceridemia Non-insulin dependent type 2 diabetes mellitus HTN (hypertension) Nephrolithiasis Degenerative disc disease Surgical History History of vasectomy History of colonoscopy History of cholecystectomy History of gastric bypass History of cervical spinal surgery Status post lumbar surgery Family History Mother No known health problems Father No known health problems Social History household members: spouse and family alcohol intake: former Assessment & Plan Assessment & Plan narrative: 1. Abdominal pain with known ulcer near his anastomotic site. Possible pancreatitis. 2. Recent hernia repair, stable. 3. Recent GI bleed related to ulcers mentioned above. 4. DM 2, stable. 5. Hypertension, stable. 6. Depression, stable. 7. New chest pain. PLAN: -NPO, and monitor lipase -analgesia. -ECG. troponin, and telemtry. -sliding scale insulin. Anticipate another night in the hospital, supports inpatient status. Full resuscitation. Time-Based Coding :: [TOTAL MINUTES] spent with patient and on the chart (including review of chart, obtaining history, exam, reviewing outside data, placing orders, documenting exam and treatment plan, and counseling patient) on [DATE].
[2024-10-22] MEDS: MAG HYDROX/ALUM/SIMETH 30 ML UDC PO ×4 (07:57→19:47)
[2024-10-22] MEDS: SUCRALFATE 1 GM TABLET PO ×4 (07:57→19:47)
--- NOTE | 2024-10-22 08:01 | EKG_ITS ---
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
[2024-10-22] MEDS: NITROGLYCERIN 0.4 MG SL TAB SL (08:02)
[2024-10-22] MEDS: PANTOPRAZOLE 40 MG VIAL IV ×2 (08:03→19:47)
[2024-10-22 08:52] LABS: Alanine Aminotransferase 17 IU/L (<50); Albumin 2.7 g/dL (3.5-5.0); Albumin Globulin Ratio 1.0 (1.0-2.8); Alkaline Phosphatase 83 U/L (38-126); Blood Urea Nitrogen 18 mg/dL (9-20); Calcium 7.8 mg/dL (8.4-10.2); Carbon Dioxide 25 mmol/L (22-32); Chloride 100 mmol/L (98-107); Estimated Glomerular Filt Rate > 60 mL/min (>60); Globulin 2.7 g/dL (1.7-4.1); Glucose 85 mg/dL (70-99); HEMOLYSIS < 15 (0-50); Lipase 280 U/L (23-300); Potassium 3.4 mmol/L (3.4-5.1); Sodium 133 mmol/L (137-145); Total Protein 5.4 g/dL (6.3-8.2)
[2024-10-22 09:03] LABS: Troponin I < 0.012 ng/mL (0.01-0.034)
[2024-10-22] MEDS: MAGNESIUM SULFATE 2 GM/50 ML PIGGYBACK IV (09:06)
[2024-10-22 10:00] LABS: Add Manual Diff / Slide Review NO; Hematocrit 22.1 % (41-53); Hemoglobin 7.3 g/dL (13.5-17.5); Lymphocytes Absolute Auto 1100 /uL (1100-4500); Mean Corpuscular HGB Conc 33.2 % (30-36); Mean Corpuscular Hemoglobin 27.1 PG (26-34); Mean Corpuscular Volume 81.6 fL (80-100); Platelet Count 307 X10^3/uL (150-400)
--- NOTE | 2024-10-22 11:02 | P.PN_ITS ---
Subjective Subjective Date Patient Seen: 10/22/24 Time Patient Seen: 11:00 Interval history: Patient is resting comfortably in bed very slow to progress states he had an episode of chest pain which was worked up by the hospitalist. Patient states the abdominal pain is better. Patient is postop day 5. Infraumbilical incisional hernia repair postoperative day number 8 EGD for upper GI bleed with acute blood loss anemia. Patient denies any further nausea or vomiting or black stools. Patient has epigastric pain has improved but still has the chest pain. Patient discussed he does have a history of alcohol abuse nothing recently but this may have contributed to his pancreatitis which is drastically improved lipase is down to 280 today. WBC is 8.9 hemoglobin is 7.3 hematocrit 22.1 platelets are 307,000 sodium is 133 potassium 3.4 chloride 100 bicarb is 25 BUN of 18 creatinine 0.72 random blood sugar is 85 total bilirubin is 0.8 AST is 17 ALT is 17 alkaline phosphatase is 83 patient's troponin is less than 0.012 lipase is 280. Vitals: Temperature is 97.9? pulse 72 respirations 16 BP is 125/70 SaO2 is 97% on room air. Heart regular rate and rhythm without murmurs. Lungs are clear but poor inspiratory and expiratory effort poor chest wall motion noted. Abdomen is soft nondistended patient's incision site is well healed no sign infection or inflammation Steri-Strips are still in place. Epigastric tenderness but no rebound or guarding. Impression: Abdominal pain resolving pancreatitis etiology unknown history of alcohol use, patient has had a cholecystectomy, history of a gastrojejunostomy bypass History of peptic ulcer disease with postop day 8. EGD for evaluation of gastric outlet ulcer channel ulcer with acute blood loss anemia Decreased H&H 7.3 and hematocrit is 22.1 but denies any rectal bleeding or hematemesis. Possible dilution secondary to IV Postop day 5. Ventral incisional hernia repair intact Chest pain being worked up by hospitalist troponin is within normal limits Plan: Patient with decrease in the lipase we will go ahead and start back on clear liquid diet continue with the current peptic ulcer oral medications we will follow patient closely no need for return to surgery at this time. All questions were answered to patient's satisfaction. Exam Vital Signs (past 8 hours): - 10/22/24 08:02 10/22/24 08:34 10/22/24 08:40 Temperature 97.9 F Pulse Rate 90 90 72 Respiratory Rate 16 16 Blood Pressure 137/73 137/73 125/70 Pulse Oximetry 100 97 Oxygen Flow Rate 0 Oxygen Delivery Method Room Air Oxygen Flow Rate 0 Objective Labs 10/22/24 09:32 10/22/24 08:28 Labs: Laboratory Results - last 24 hr 10/21/24 10/21/24 10/21/24 11:47 15:16 20:55 WBC 10.3 RBC 3.47 L Hgb 9.3 L Hct 28.2 L MCV 81.2 MCH 26.8 MCHC 33.0 RDW 19.8 H Plt Count 421 H Neut % (Auto) 81.3 H Lymph % (Auto) 9.3 L [place] % (Auto) 8.6 Eos % (Auto) 0.0 L Baso % (Auto) 0.8 Neut # (Auto) 8400 H Lymph # (Auto) 1000 L [place] # (Auto) 900 Eos # (Auto) 0 Baso # (Auto) 100 Sodium 133 L Potassium 3.5 Chloride 98 Carbon Dioxide 22 BUN 22 H Creatinine 0.93 Estimated GFR > 60 BUN/Creatinine Ratio 23.7 H Glucose 149 H Lactate 0.9 Calcium 9.9 Magnesium 1.3 L Total Bilirubin 1.4 H AST 26 ALT 28 Alkaline Phosphatase 109 Troponin I Total Protein 6.8 Albumin 3.6 Globulin 3.2 Albumin/Globulin Ratio 1.1 Lipase 1704 H D Ur Bilirubin Confirm Negative Urine RBC None seen Urine WBC None seen Ur Squamous Epith Cells None seen Calcium Oxalate Crystal Few H Amorphous Sediment 3+ Urine Bacteria Few (2-10) H Ur Culture Indicated? Cult not indicated Vol Urine Centrifuged 10ml (spun) 10/22/24 10/22/24 10/22/24 08:10 08:28 09:32 WBC 8.9 RBC 2.71 L Hgb 7.3 L Hct 22.1 L MCV 81.6 MCH 27.1 MCHC 33.2 RDW 19.3 H Plt Count 307 Neut % (Auto) 80.7 H Lymph % (Auto) 12.5 L [place] % (Auto) 6.0 Eos % (Auto) 0.3 L Baso % (Auto) 0.5 Neut # (Auto) 7200 H Lymph # (Auto) 1100 [place] # (Auto) 500 Eos # (Auto) 0 Baso # (Auto) 0 Sodium 133 L Potassium 3.4 Chloride 100 Carbon Dioxide 25 BUN 18 Creatinine 0.72 Estimated GFR > 60 BUN/Creatinine Ratio 25.0 H Glucose 85 Lactate Calcium 7.8 L Magnesium Total Bilirubin 0.8 AST 17 ALT 17 Alkaline Phosphatase 83 Troponin I < 0.012 Total Protein 5.4 L Albumin 2.7 L Globulin 2.7 Albumin/Globulin Ratio 1.0 Lipase 280 D Ur Bilirubin Confirm Urine RBC Urine WBC Ur Squamous Epith Cells Calcium Oxalate Crystal Amorphous Sediment Urine Bacteria Ur Culture Indicated? Vol Urine Centrifuged [facility] Medical History GERD (gastroesophageal reflux disease) HNP (herniated nucleus pulposus), lumbar History of bleeding ulcers Hypertriglyceridemia Non-insulin dependent type 2 diabetes mellitus HTN (hypertension) Nephrolithiasis Degenerative disc disease Surgical History History of vasectomy History of colonoscopy History of cholecystectomy History of gastric bypass History of cervical spinal surgery Status post lumbar surgery Family History Mother No known health problems Father No known health problems Social History household members: spouse and family alcohol intake: former Assessment & Plan Time-Based Coding :: [TOTAL MINUTES] spent with patient and on the chart (including review of chart, obtaining history, exam, reviewing outside data, placing orders, documenting exam and treatment plan, and counseling patient) on [DATE]. PROFEE Bag Adjuster Document charge(s): Yes
--- NOTE | 2024-10-22 14:05 | CM.DANOTE ---
Pt is a 69 yo male, resident of [place], presents as Readmit on 10/21/24 with persistent abd pain. Pt recently admitted 10/14-10/17/24 for EGD showed nonbleeding circumferential pyloric channel ulcerations and ended up having hernia repair surgery and discharged home. Per MD, pt with hx of gastric bypass and now being treated for peptic ulcers. Currently NPO and if pt's labs improve then can slowly advance diet to see how pt tolerates. PCP: JACQUELINE José Payer: ADRYAN GRIFFIN (OCN)/[employer] Reviewed chart, pt discussed in multidisciplinary rounds this morning. Likely here through Thursday, dietary consult ordered. Patient with rapid weight loss over the last few weeks. Met w/patient and spouse; patient lives w/sp, independent typically in all ADLs, reports fatigue over the last few weeks and disappointed in having to be readmitted to the hospital. Pt confirms he was able to discharge home with no needs after last admission and family provided transport and now returns and preference is to d/c home again when stable. Uncertain if he feels HH needed or not but will see how he feels when closer to discharge. Plan: SW to follow closely for pt progress and to r/o possible HH needs since pt readmitted to the hospital. SW to follow for any further identified discharge planning needs. ADAM Wan Discharge Planning/Care Management Advanced directive, confirm from FAMILY Start: 10/21/24 19:16 Freq: Q24H Status: Active Protocol: Document 10/21/24 19:16 (Rec: 10/22/24 02:49 [id number]) Advance Directive, confirm on record Time 21:00 Person contacted pt Copy received No CM Discharge Assessment Start: 10/21/24 17:09 Freq: Status: Active Protocol: Document 10/22/24 14:03 BF (Rec: 10/22/24 14:04 BF [id number]) Discharge Planning Assessment Assigned Discharge ADAM Vargas Carbon Cleaner DPOA/Assigned Spouse Cecy Designee Name Contact Information [phone] Advance Directives? No Advance Directives No on File History Provided By Patient,Family Member,Medical Record Has Patient been Yes admitted in last 30 days? Comment Recently admitted 10/14-10/17 for hernia repair and discharged home Prior Living House Arrangements Household Members spouse,family Type of Relies on Others transporation used prior to admit Independent with ADL Yes 's Is patient alert and Yes: somewhat oriented? Needs Assistance Managing Medications,Home Chores / Shopping With Caregiver for No Another Comment N/A Patient/Family Home with Home Health Preference Barriers to No Discharge Comment Readmit Discharge Plan Home Transportation Spouse POV Arrangement Referrals Initiated Home Health Additional Comment May benefit from HH referral, patient and sp would like to discuss this closer to [place]. Whiteboard Updated Yes in Patient Room with name and ext. # of Hide Cleaner Review Status In Process Please Provide Date 10/22/24 Initial DC Assessment Was Performed Next Review Type Continued Stay Review
[2024-10-22] MEDS: POTASSIUM CHLORIDE 20 MEQ TAB 40 MEQ PO (14:16)
[2024-10-23] VITALS (7 sets, daily range): BP systolic 125–160; BP diastolic 65–88; PULSE 63–90; RESP 16–18; TEMP 36.1–36.5; O2SAT 95–100
[2024-10-23] MEDS: SODIUM CHLORIDE 0.9% 1,000 ML 100 ML IV ×3 (00:24→19:29)
[2024-10-23] MEDS: HYDROMORPHONE 1 MG INJ IV ×5 (00:24→13:02)
[2024-10-23] MEDS: MAG HYDROX/ALUM/SIMETH 30 ML UDC PO ×4 (08:21→20:23)
[2024-10-23] MEDS: SUCRALFATE 1 GM TABLET PO ×4 (08:21→20:23)
[2024-10-23] MEDS: PANTOPRAZOLE 40 MG VIAL IV ×2 (08:21→20:23)
--- NOTE | 2024-10-23 08:45 | PM.PN.1 ---
Subjective Subjective Interval history: Summary: Patient was a 69-year-old male with abdominal pain for the last week. He was recently discharged after having EGD revealing a marginal ulcer near his gastrojejunal anastomosis from his prior gastric bypass. Since discharge, he was had persistent pain in the abdomen. He also underwent repair of a recurrent non incarcerated incisional hernia on October 17, during his previous admission. General surgeon asked for a 2nd CT scan with oral contrast which was negative for extravasation. 10/22: Persistent abdominal pain. Imaging revealed evidence of activity at the ulcer site but no extravasation. Also complaint of chest pain with a nonacute 12 lead and a negative troponin. No cardiac history. S: He was pain appears to be persistent. It was a report of previous opiate use at home. In reviewing all of the imaging the 1 thing that does stand out as his degree of inflammation had his ulcer site. His lipase has improved. I did speak with surgery regarding him, [id number] today. We will advance his diet. Exam Vital Signs (past 8 hours): - 10/23/24 04:00 10/23/24 08:00 Temperature 96.9 F L 97.4 F L Pulse Rate 83 72 Respiratory Rate 18 16 Blood Pressure 130/70 132/88 Pulse Oximetry 100 100 Oxygen Delivery Method Room Air Oxygen Flow Rate 0 Narrative Exam Narrative: NAD, alert and oriented. Fluent speech. Flat affect. Lungs are clear, normal rate and effort. Heart is regular, no murmur gallop or rub. Abdomen is soft, non distended. Extremities are free of edema. Objective ECG Impression: ntervals [place] Rate: 99 P: 92 [place]: 146 QRS: -61 QRSD: 92 T: 84 QT: 354 QTc: 454 Interpretive Statements Critical Test Result: Arrhythmia Sinus rhythm with frequent and consecutive premature ventricular complexes Pulmonary disease pattern Incomplete right bundle branch block Left anterior fascicular block Nonspecific ST abnormality Imaging Multiple studies:: Radiologist's impression: CT abdomen 16:32 on October 21: Moderate edema at the proximal Grey limb of the bypass. This could represent ulcer disease, focal gastritis, or sutural dehiscence. No extravasation of ingested oral contrast is seen. No bowel obstruction. No drainable abdominal fluid collection. Other findings above on this noncontrast imaging. CT abdomen 09:49 on October 21: Prior gastric bypass. Significant inflammatory changes at the gastrojejunostomy, with significant wall thickening and adjacent fat stranding. There is abnormal enhancement along the right lateral aspect of the anastomosis in the proximal jejunum. Differential for this process includes an ulcer versus dehiscence of the surgical anastomosis. No free air to suggest perforation. Interval hernia repair, without small bowel obstruction. CT abdomen October 15: Anterior abdominal wall hernia seen inferiorly, containing nondilated small bowel. This hernia is clearly worse on the current study than on the recent prior. Prior bariatric surgery, with generalized inflammatory change, yet without findings of perforation or abscess. Inflammatory change seen adjacent to the head of the pancreas, as before. Please consider pancreatitis. Additional findings: Moderate coronary artery calcification Small to moderate hiatal hernia Cholecystectomy Nonobstructing right-sided kidney stone Diverticulosis, without active diverticulitis Lumbosacral postoperative change Mild bilateral fat containing inguinal hernias Echo: pending. Labs 10/22/24 09:32 10/23/24 08:00 Labs: Laboratory Results - last 24 hr 10/22/24 10/22/24 10/22/24 08:10 08:28 09:32 WBC 8.9 RBC 2.71 L Hgb 7.3 L Hct 22.1 L MCV 81.6 MCH 27.1 MCHC 33.2 RDW 19.3 H Plt Count 307 Neut % (Auto) 80.7 H Lymph % (Auto) 12.5 L [place] % (Auto) 6.0 Eos % (Auto) 0.3 L Baso % (Auto) 0.5 Neut # (Auto) 7200 H Lymph # (Auto) 1100 [place] # (Auto) 500 Eos # (Auto) 0 Baso # (Auto) 0 Sodium 133 L Potassium 3.4 Chloride 100 Carbon Dioxide 25 BUN 18 Creatinine 0.72 Estimated GFR > 60 BUN/Creatinine Ratio 25.0 H Glucose 85 Calcium 7.8 L Total Bilirubin 0.8 AST 17 ALT 17 Alkaline Phosphatase 83 Troponin I < 0.012 Total Protein 5.4 L Albumin 2.7 L Globulin 2.7 Albumin/Globulin Ratio 1.0 Lipase 280 D [facility] Medical History GERD (gastroesophageal reflux disease) HNP (herniated nucleus pulposus), lumbar History of bleeding ulcers Hypertriglyceridemia Non-insulin dependent type 2 diabetes mellitus HTN (hypertension) Nephrolithiasis Degenerative disc disease Surgical History History of vasectomy History of colonoscopy History of cholecystectomy History of gastric bypass History of cervical spinal surgery Status post lumbar surgery Family History Mother No known health problems Father No known health problems Social History household members: spouse and family alcohol intake: former Assessment & Plan Assessment & Plan narrative: 1. Abdominal pain with known ulcer near his anastomotic site. 2. Pancreatitis, improved. 3. Recent hernia repair, stable. 4. Recent GI bleed related to ulcers mentioned above. 5. DM 2, stable. 6. Hypertension, stable. 7. Depression, stable. 7. New chest pain. Improved. ECG with sinus rhythm, PVCs, incomplete right bundle, and LAFB. Troponin normal. PLAN: -advance diet -beginning transitioned to oral pain medications. -continue PPI b.i.d. indefinitely after discharge. -consider outpatient stress test after discharge. -echo is ordered and it appears that was partially performed but no report is available. We will try to track this down. CARLOS: 1 day, home. His does voice concerns that his mental cognition is deteriorating over the last subacute period of time. She was concerned about early dementia. Anticipate another night in the hospital, supports inpatient status. Time-Based Coding :: [TOTAL MINUTES] spent with patient and on the chart (including review of chart, obtaining history, exam, reviewing outside data, placing orders, documenting exam and treatment plan, and counseling patient) on [DATE].
[2024-10-23 08:53] LABS: Alanine Aminotransferase 20 IU/L (<50); Albumin 3.1 g/dL (3.5-5.0); Albumin Globulin Ratio 1.0 (1.0-2.8); Alkaline Phosphatase 93 U/L (38-126); Blood Urea Nitrogen 10 mg/dL (9-20); Calcium 8.1 mg/dL (8.4-10.2); Carbon Dioxide 24 mmol/L (22-32); Chloride 104 mmol/L (98-107); Estimated Glomerular Filt Rate > 60 mL/min (>60); Globulin 3.0 g/dL (1.7-4.1); Glucose 139 mg/dL (70-99); HEMOLYSIS < 15 (0-50); Lipase 62 U/L (23-300); Magnesium 1.8 mg/dL (1.6-2.3); Potassium 4.0 mmol/L (3.4-5.1); Sodium 135 mmol/L (137-145); Total Protein 6.1 g/dL (6.3-8.2)
--- NOTE | 2024-10-23 10:09 | PM.PN.IH.1 ---
Subjective Subjective Date Patient Seen: 10/23/24 Time Patient Seen: 09:30 Interval history: Patient is resting in bed states he is tolerating liquids well is passing flatus but states he has had no melanotic stools. Denies any nausea or vomiting. Patient is still complains of abdominal pain and chest pain patient has been seen by hospitalist but his cardiac enzymes are normal. Patient is postop day 9. EGD for upper GI bleed with gastrojejunostomy ulcers postop day 6. Repair of a incisional hernia. Patient's morning laboratory CBC is still pending sodium is 135 potassium 4.0 chloride 104 bicarb is 24 BUN of 10 creatinine 0.66 random blood sugar is 139 normal LFTs lipase is down to 62. Vitals: Temperature is 97.4? pulse 72 respirations 16 BP is 132/88 Heart regular rate and rhythm without murmurs. Lungs are clear but diminished in the bases poor inspiratory and expiratory effort poor chest wall motion noted. Abdomen is soft nondistended good active bowel sounds minimal epigastric tenderness incision is healing well no sign of infection or inflammation. Steri-Strips are still in place Impression: Chest and epigastric pain etiology unknown resolved pancreatitis etiology unknown Postop day 9. EGD for upper GI bleed Postop day 6. Repair of incisional herniorrhaphy Morning CBC is pending but no obvious source of bleeding Plan: Discussed with patient the findings we will advance diet slowly as his history of peptic ulcer disease pancreatitis is resolved etiology is unknown patient is slow to progress we will follow with Medicine no need for emergent surgical intervention at this time. Exam Vital Signs (past 8 hours): - 10/23/24 04:00 10/23/24 08:00 Temperature 96.9 F L 97.4 F L Pulse Rate 83 72 Respiratory Rate 18 16 Blood Pressure 130/70 132/88 Pulse Oximetry 100 100 Oxygen Delivery Method Room Air Oxygen Flow Rate 0 Objective Labs 10/22/24 09:32 10/23/24 08:00 Labs: Laboratory Results - last 24 hr 10/23/24 08:00 Sodium 135 L Potassium 4.0 Chloride 104 Carbon Dioxide 24 BUN 10 Creatinine 0.66 Estimated GFR > 60 BUN/Creatinine Ratio 15.2 Glucose 139 H Calcium 8.1 L Magnesium 1.8 Total Bilirubin 0.9 AST 22 ALT 20 Alkaline Phosphatase 93 Total Protein 6.1 L Albumin 3.1 L Globulin 3.0 Albumin/Globulin Ratio 1.0 Lipase 62 D [facility] Medical History GERD (gastroesophageal reflux disease) HNP (herniated nucleus pulposus), lumbar History of bleeding ulcers Hypertriglyceridemia Non-insulin dependent type 2 diabetes mellitus HTN (hypertension) Nephrolithiasis Degenerative disc disease Surgical History History of vasectomy History of colonoscopy History of cholecystectomy History of gastric bypass History of cervical spinal surgery Status post lumbar surgery Family History Mother No known health problems Father No known health problems Social History household members: spouse and family alcohol intake: former Assessment & Plan Time-Based Coding :: [TOTAL MINUTES] spent with patient and on the chart (including review of chart, obtaining history, exam, reviewing outside data, placing orders, documenting exam and treatment plan, and counseling patient) on [DATE]. PROFEE District Associate Judge Document charge(s): Yes
--- NOTE | 2024-10-23 11:53 | PC.NURSE ---
Patient is alert and oriented x4, he has been getting dilaudid 1mg every 3 hours or so and he is on his light quite frequently asking for the pain medication. If staff is not right on time he will keep pushing his light. This RN explained to patient that as soon as DINKING MACHINE OPERATOR answers his callbell that he will tell staff and we will get his medication right away. Encouraged celia to try and be a bit more patient and he was agreeable. Resting comfortably.
--- NOTE | 2024-10-23 14:30 | CM.DPC ---
DCP Cont: Per Surgeon, pt still with some abdominal and chest pain and etiology unknown as his primary dx and conditions seem to be resolving or resolved. Will begin slowly advancing diet. Hospitalist involved and currently no further identified medical conditions at this time. ADAM Wan
[2024-10-23] MEDS: OXYCODONE IR 5 MG TABLET PO ×3 (16:02→23:20)
[2024-10-23 17:46] LABS: Add Manual Diff / Slide Review NO; Hematocrit 24.8 % (41-53); Hemoglobin 8.1 g/dL (13.5-17.5); Lymphocytes Absolute Auto 1200 /uL (1100-4500); Mean Corpuscular HGB Conc 32.5 % (30-36); Mean Corpuscular Hemoglobin 26.9 PG (26-34); Mean Corpuscular Volume 82.9 fL (80-100); Platelet Count 396 X10^3/uL (150-400)
[2024-10-24] VITALS (15 sets, daily range): BP systolic 83–159; BP diastolic 51–80; PULSE 66–187; RESP 14–20; TEMP 35.9–36.6; O2SAT 97–100
[2024-10-24] MEDS: OXYCODONE IR 5 MG TABLET PO ×4 (02:14→11:26)
[2024-10-24] MEDS: SODIUM CHLORIDE 0.9% 1,000 ML 100 ML IV ×2 (04:43→17:14)
[2024-10-24 05:37] LABS: Mean Corpuscular HGB Conc 33.1 % (30-36); Mean Corpuscular Hemoglobin 27.2 PG (26-34); Mean Corpuscular Volume 82.2 fL (80-100); Platelet Count 321 X10^3/uL (150-400)
[2024-10-24 05:40] LABS: Hemoglobin 6.7 g/dL (13.5-17.5)
[2024-10-24 05:41] LABS: Hematocrit 20.2 % (41-53)
[2024-10-24 05:51] LABS: Alanine Aminotransferase 18 IU/L (<50); Albumin 2.6 g/dL (3.5-5.0); Albumin Globulin Ratio 0.9 (1.0-2.8); Alkaline Phosphatase 85 U/L (38-126); Blood Urea Nitrogen 7 mg/dL (9-20); Calcium 7.7 mg/dL (8.4-10.2); Carbon Dioxide 28 mmol/L (22-32); Chloride 105 mmol/L (98-107); Estimated Glomerular Filt Rate > 60 mL/min (>60); Globulin 2.8 g/dL (1.7-4.1); Glucose 98 mg/dL (70-99); HEMOLYSIS < 15 (0-50); Potassium 3.7 mmol/L (3.4-5.1); Sodium 136 mmol/L (137-145); Total Protein 5.4 g/dL (6.3-8.2)
--- NOTE | 2024-10-24 06:10 | PC.NURSE ---
shift stacker: Notified MD Francis of critical H/H. Vital signs are stable, patient is asymptomatic. No obvious signs of bleeding noted. Patient stated he had a BM overnight, denies red or dark stools. 1 unit PRBC ordered per MD, blood consent signed. Patient verbalized understanding of plan of care.
[2024-10-24] MEDS: SUCRALFATE 1 GM TABLET PO ×3 (07:51→21:23)
[2024-10-24] MEDS: MAG HYDROX/ALUM/SIMETH 30 ML UDC PO ×3 (07:51→21:23)
[2024-10-24] MEDS: PANTOPRAZOLE 40 MG VIAL IV ×2 (08:26→21:23)
--- NOTE | 2024-10-24 09:01 | PC.NURSE ---
Addendum entered by Dannielle Rojas R.N. 10/24/24 19:39: Patient had a second unit of PRBCS hung, he tolerated it well in new iv to the r.upper arm, us guided. He complains of pain to area but arm looks wnl. Patient is resting comfortably, he refused dinner. Addendum entered by Dannielle Rojas R.N. 10/24/24 16:09: Patient had a fall at 1400. Patient tech in room taking vital signs and called this RN as his pulse was at 130, checked tele monitor and pulse at 101. She asked patient if he had to go to the bathroom and he stated No. A couple minutes later patient ambulated to the bathroom and fell down, possible syncopal episode. states that patient was gonna grab his walker, stood at the bathroom doorway for a minute and just fell. Staff assisted patient while was lying on his back. Breathing and pulse present, with shallow breaths. Patient came around a few minutes later and thought he was at home. Patient placed on a juanpablo pad and hoyered back to the bed. Blood pressure with stystolic of 86, back to bed with ns bolus going around 1415. Patient has been stable and his bp is 101/55. Second NS 1L bolus infusing and patient is gonna get a second unit of prbcs. Addendum entered by Dannielle Rojas R.N. 10/24/24 13:50: Patients blood finished at 1150. Initial VS pulse charted at 187, pulse was 87! He was given pain medication and is doing well. Original Note: Patients unit of prbcs started, he is tolerating them well. He is feeling anxious and wants to talk to the doctor. Webexed Dr. Garber and he will see patient soon. Otherwise, patient showered this morning and ate all of his breakfast. Given oxycodone for complaints of discomfort to abdomen 08/23. He states that this medication has been helping his disocomfort.
--- NOTE | 2024-10-24 11:52 | PM.PN.1 ---
Subjective Subjective Date Patient Seen: 10/24/24 Interval history: Chief complaint: Epigastric pain in the setting of remote postoperative gastric bypass surgery with marginal ulcer, suspected recurrent pancreatitis, and recent ventral hernia repair History of present illness: 69-year-old male with abdominal pain for the last week. He was recently discharged after having EGD revealing a marginal ulcer near his gastrojejunal anastomosis from his prior gastric bypass. Since discharge, he was had persistent pain in the abdomen. He also underwent repair of a recurrent non incarcerated incisional hernia on October 17, during his previous admission. General surgeon asked for a 2nd CT scan with oral contrast which was negative for extravasation. 10/22: Persistent abdominal pain. Imaging revealed evidence of activity at the ulcer site but no extravasation. Also complaint of chest pain with a nonacute 12 lead and a negative troponin. No cardiac history. 10/23: He was pain appears to be persistent. It was a report of previous opiate use at home. In reviewing all of the imaging the 1 thing that does stand out as his degree of inflammation had his ulcer site. His lipase has improved. I did speak with surgery regarding him, [id number] today. We will advance his diet. 10/24: Still having some epigastric pain had a normal brown bowel movement this morning hemoglobin dropped to 6.7 this morning tolerated cream of wheat this morning for breakfast lipase de-escalated from 280 down to 67 this may be secondary to either peptic ulcer or pancreatitis either way is deescalating Review of systems: No chest pain palpitations No fever or chills No urinary symptoms No paresthesia paresis Physical exam: Elderly gentleman no acute distress HEENT unremarkable Heart rate and rhythm regular lungs clear Abdomen as well healed scar from incision Minimal epigastric tenderness Some idania surgical slight soreness Assessment plan: Abdominal pain potentially multifactorial in origin pain at anastomotic site where there is an ulcer seen on EGD, perhaps pancreatitis, and possible visceral pain with anatomical change in position of small bowel after hernia reduction and repair PPI and Carafate Full liquid low-fat diet do not provoke pancreas Discharge home after hemoglobin has stabilized Guaiac stool DVT prophylaxis: Not indicated Code status: Full code blue 35 minutes were involved in management of this patient including [id number] evaluation physical examination of the patient discussion with surgery and nursing team review of objective laboratory data and previous records Exam Vital Signs (past 8 hours): - 10/24/24 05:16 10/24/24 08:50 10/24/24 09:00 Temperature 96.7 F L 96.8 F L 96.9 F L Pulse Rate 70 71 81 Respiratory Rate 18 19 15 Blood Pressure 145/71 H 155/61 H 136/68 Pulse Oximetry 100 100 Oxygen Flow Rate 0 0 10/24/24 09:05 Temperature 96.9 F L Pulse Rate 187 H Respiratory Rate 14 Blood Pressure 131/63 Pulse Oximetry Oxygen Flow Rate Oxygen Delivery Method Room Air Oxygen Flow Rate 0 Objective Labs 10/24/24 05:10 10/24/24 05:10 Labs: Laboratory Results - last 24 hr 10/23/24 10/23/24 10/24/24 17:25 21:22 05:10 WBC 6.0 3.8 L RBC 3.00 L 2.46 L Hgb 8.1 L 6.7 L* Hct 24.8 L 20.2 L* MCV 82.9 82.2 MCH 26.9 27.2 MCHC 32.5 33.1 RDW 19.6 H 19.7 H Plt Count 396 321 Neut % (Auto) 68.7 Lymph % (Auto) 20.1 L [place] % (Auto) 8.9 Eos % (Auto) 2.0 Baso % (Auto) 0.3 Neut # (Auto) 4100 Lymph # (Auto) 1200 [place] # (Auto) 500 Eos # (Auto) 100 Baso # (Auto) 0 Sodium 136 L Potassium 3.7 Chloride 105 Carbon Dioxide 28 BUN 7 L Creatinine 0.64 L Estimated GFR > 60 BUN/Creatinine Ratio 10.9 Glucose 98 POC Whole Bld Glucose 128 H Calcium 7.7 L Total Bilirubin 0.4 AST 25 ALT 18 Alkaline Phosphatase 85 Total Protein 5.4 L Albumin 2.6 L Globulin 2.8 Albumin/Globulin Ratio 0.9 L Blood Type O Positive Antibody Screen Negative Crossmatch See Detail 10/24/24 07:39 WBC RBC Hgb Hct MCV MCH MCHC RDW Plt Count Neut % (Auto) Lymph % (Auto) [place] % (Auto) Eos % (Auto) Baso % (Auto) Neut # (Auto) Lymph # (Auto) [place] # (Auto) Eos # (Auto) Baso # (Auto) Sodium Potassium Chloride Carbon Dioxide BUN Creatinine Estimated GFR BUN/Creatinine Ratio Glucose POC Whole Bld Glucose 109 H Calcium Total Bilirubin AST ALT Alkaline Phosphatase Total Protein Albumin Globulin Albumin/Globulin Ratio Blood Type Antibody Screen Crossmatch [facility] Medical History GERD (gastroesophageal reflux disease) HNP (herniated nucleus pulposus), lumbar History of bleeding ulcers Hypertriglyceridemia Non-insulin dependent type 2 diabetes mellitus HTN (hypertension) Nephrolithiasis Degenerative disc disease Surgical History History of vasectomy History of colonoscopy History of cholecystectomy History of gastric bypass History of cervical spinal surgery Status post lumbar surgery Family History Mother No known health problems Father No known health problems Social History household members: spouse and family alcohol intake: former Assessment & Plan Time-Based Coding :: [TOTAL MINUTES] spent with patient and on the chart (including review of chart, obtaining history, exam, reviewing outside data, placing orders, documenting exam and treatment plan, and counseling patient) on [DATE].
--- NOTE | 2024-10-24 12:42 | P.PN_ITS ---
Subjective Subjective Date Patient Seen: 10/24/24 Time Patient Seen: 12:45 Interval history: Patient is a 69-year-old white male postop day 10. EGD for upper GI bleed with gastrojejunostomy channel ulcer. Postop day 7. Infraumbilical incisional hernia. Patient states he is still having chest pain has undergone a cardiac echo is enzymes have been negative. States he has some abdominal discomfort but he did have pancreatitis that this has since resolved. Patient's morning laboratory shows WBC of 3.8 hemoglobin is 6.7 hematocrit is 20.2 platelets are 321,000 sodium is 136 potassium 3.7 chloride 105 random blood sugar is 28 BUN of 7 creatinine 0.64 random blood sugar is 98 normal LFTs. Patient denies any black or red stools denies any nausea vomiting is tolerating diet well. Vitals: Temperature is 96.9? pulse is 88 respirations 14 BP is 131/63 SaO2 is 100% on room air Heart regular rate and rhythm without murmurs lungs are clear to auscultation poor inspiratory and expiratory effort poor chest wall motion noted abdomen is soft nondistended good active bowel sounds some epigastric tenderness but no rebound or guarding incision is healing well no sign infection or inflammation. Impression: Chest abdominal pain etiology unknown history of resolved pancreatitis Postop day 10. EGD for upper GI bleed with gastrojejunostomy channel ulcer Postop day 7. Incisional hernia Decreased H&H with hemoglobin of 6.7 hematocrit is 20.2 but no hematemesis or melena Plan: No need for return to surgery at this time patient will be followed as needed patient is being worked up for his chest pain all questions were answered patient's satisfaction we will advance diet further orders as written. Exam Vital Signs (past 8 hours): - 10/24/24 05:16 10/24/24 08:50 10/24/24 09:00 Temperature 96.7 F L 96.8 F L 96.9 F L Pulse Rate 70 71 81 Respiratory Rate 18 19 15 Blood Pressure 145/71 H 155/61 H 136/68 Pulse Oximetry 100 100 Oxygen Flow Rate 0 0 10/24/24 09:05 Temperature 96.9 F L Pulse Rate 187 H Respiratory Rate 14 Blood Pressure 131/63 Pulse Oximetry Oxygen Flow Rate Oxygen Delivery Method Room Air Oxygen Flow Rate 0 Objective Labs 10/24/24 05:10 10/24/24 05:10 Labs: Laboratory Results - last 24 hr 10/23/24 10/23/24 10/24/24 17:25 21:22 05:10 WBC 6.0 3.8 L RBC 3.00 L 2.46 L Hgb 8.1 L 6.7 L* Hct 24.8 L 20.2 L* MCV 82.9 82.2 MCH 26.9 27.2 MCHC 32.5 33.1 RDW 19.6 H 19.7 H Plt Count 396 321 Neut % (Auto) 68.7 Lymph % (Auto) 20.1 L [place] % (Auto) 8.9 Eos % (Auto) 2.0 Baso % (Auto) 0.3 Neut # (Auto) 4100 Lymph # (Auto) 1200 [place] # (Auto) 500 Eos # (Auto) 100 Baso # (Auto) 0 Sodium 136 L Potassium 3.7 Chloride 105 Carbon Dioxide 28 BUN 7 L Creatinine 0.64 L Estimated GFR > 60 BUN/Creatinine Ratio 10.9 Glucose 98 POC Whole Bld Glucose 128 H Calcium 7.7 L Total Bilirubin 0.4 AST 25 ALT 18 Alkaline Phosphatase 85 Total Protein 5.4 L Albumin 2.6 L Globulin 2.8 Albumin/Globulin Ratio 0.9 L Blood Type O Positive Antibody Screen Negative Crossmatch See Detail 10/24/24 10/24/24 07:39 11:54 WBC RBC Hgb Hct MCV MCH MCHC RDW Plt Count Neut % (Auto) Lymph % (Auto) [place] % (Auto) Eos % (Auto) Baso % (Auto) Neut # (Auto) Lymph # (Auto) [place] # (Auto) Eos # (Auto) Baso # (Auto) Sodium Potassium Chloride Carbon Dioxide BUN Creatinine Estimated GFR BUN/Creatinine Ratio Glucose POC Whole Bld Glucose 109 H 145 H Calcium Total Bilirubin AST ALT Alkaline Phosphatase Total Protein Albumin Globulin Albumin/Globulin Ratio Blood Type Antibody Screen Crossmatch [facility] Medical History GERD (gastroesophageal reflux disease) HNP (herniated nucleus pulposus), lumbar History of bleeding ulcers Hypertriglyceridemia Non-insulin dependent type 2 diabetes mellitus HTN (hypertension) Nephrolithiasis Degenerative disc disease Surgical History History of vasectomy History of colonoscopy History of cholecystectomy History of gastric bypass History of cervical spinal surgery Status post lumbar surgery Family History Mother No known health problems Father No known health problems Social History household members: spouse and family alcohol intake: former Assessment & Plan Time-Based Coding :: [TOTAL MINUTES] spent with patient and on the chart (including review of chart, obtaining history, exam, reviewing outside data, placing orders, documenting exam and treatment plan, and counseling patient) on [DATE]. PROFEE Core Cutter Document charge(s): Yes
[2024-10-24] MEDS: SODIUM CHLORIDE 0.9% 1,000 ML 1000 ML IV ×2 (14:20→16:00)
[2024-10-24 14:29] LABS: Hematocrit 22.7 % (41-53); Hemoglobin 7.4 g/dL (13.5-17.5)
--- NOTE | 2024-10-24 14:40 | DI.CT.S_ITS ---
PROCEDURE: CT ABDOMEN PELVIS W CON INDICATIONS: Evaluate for retroperitoneal hemorrhage or proximal jejunum TECHNIQUE: After the administration of intravenous contrast, axial sections acquired from the lung bases to the pubic symphysis. Coronal and sagittal reformats were performed. For radiation dose reduction, the following was used: automated exposure control, adjustment of mA and/or kV according to patient size. COMPARISON: [facility], CT, CT ABDOMEN PELVIS W CON, 10/21/2024, 17:55. FINDINGS: Image quality: Diagnostic. Lower Chest: Moderate size hiatal hernia. Heart size is normal, no pericardial effusion. Bilateral lung bases are clear. ABDOMEN: Liver: No solid mass. Gallbladder: Gallbladder is surgically absent. Biliary ducts: No biliary dilation. Pancreas: No ductal dilation. Spleen: Size is within normal limits. Adrenal Glands: No adrenal nodules. Kidneys and Ureters: No hydronephrosis. Nonobstructing stone in lower pole right kidney is again seen. No solid mass. No complex renal cystic lesion which requires follow up. Stomach and Bowel: Again noted are postsurgical changes from prior Grey-en-Y bypass. There is interval decrease in the extent of inflammatory changes surrounding the proximal Grey limb. Oral contrast material now all is seen in distal sigmoid colon and rectum. There is now moderate fluid distension of the small bowel loops predominantly in left side of abdomen without focal zone of transition seen. No abscess collection. No abnormal bowel wall thickening or significant mesenteric fat stranding. Peritoneum: No abnormal intraperitoneal fluid. No free air. Ventral Wall: No significant ventral hernia. Abdominal Nodes: No retroperitoneal or mesenteric adenopathy by size criteria. Vessels: Aorta and inferior vena cava are normal in size. PELVIS: Pelvic Organs: Unremarkable. Bladder: No bladder wall thickening, accounting for underdistention. Pelvic Nodes: No enlarged lymph nodes. Miscellaneous: No inguinal hernias are seen. Bones: No aggressive osseous abnormality. Postsurgical changes are noted from prior lower lumbar spine fusion unchanged from prior study. IMPRESSION: 1. No retroperitoneal hematoma. No discrete drainable peripherally enhancing fluid collection. 2. Interval decrease in the extent of inflammatory changes surrounding the proximal Grey limb in right upper quadrant abdomen. No significant bowel wall thickening or mesenteric fat stranding is noted on the current study. Moderate fluid distension of small bowel loops in upper to mid abdomen more prominent on the left side concerning for enteritis . No definite zone of transition is identified to suggest high-grade obstruction. No free fluid or free air. No abscess collection. 3. Other chronic findings are all unchanged from prior study. Dictated by: Brayan Diaz M.D. on 10/24/2024 at 15:52 Approved by: Brayan Diaz M.D. on 10/24/2024 at 16:07
[2024-10-24] MEDS: ONDANSETRON 4 MG/2 ML INJ IV (14:47)
--- NOTE | 2024-10-24 16:04 | CM.DPC ---
DCP Cont: Per MD, pt's H&H was low and getting one unit of blood this morning. Maris Strickland called on pt in the afternoon after he attempted to go to bathroom without staff assist but was able to wake and be responsive and assisted back to bed. Discharge needs unclear at this time, SW to continue to follow to determine discharge planning needs. ADAM Wan
--- NOTE | 2024-10-24 17:55 | P.PN_ITS ---
Subjective Subjective Date Patient Seen: 10/24/24 Time Patient Seen: 06:00 Interval history: Patient is resting comfortably had an episode today where he went to the bathroom and had a syncopal episode he denies hitting anything but just fell out. Patient was worked up by the hospitalist and had slightly decreased blood count but he has had no rectal bleeding no nausea or vomiting patient is very difficult historian. Patient underwent a CT scan with IV contrast which shows some dilated small bowel and near his Grey-en-Y anastomosis there was no extravasation of dye no signs of bleeding discussed with patient and the findings we will go ahead and cut patient back to a clear liquid diet and go ahead and schedule a Gastrografin upper GI with small-bowel follow-through to rule out pathology. All questions were answered to her satisfaction. Vitals: Temperature is 96.7? pulse 71 respirations 14 BP is 158/80 Heart regular rate and rhythm without murmurs lungs are clear but diminished in the bases no rales rhonchi or wheezes noted abdomen is soft nondistended with good active bowel sounds Impression: Syncopal episode and bathroom no injuries Decreased H&H rule out GI blood loss no melena or hematemesis Postop day 7. Incisional herniorrhaphy postop day 10. EGD with upper GI bleed from gastrojejunostomy anastomosis a channel ulcers Resolved pancreatitis etiology unknown Plan: Discussed with patient and the findings we will go ahead and just place patient back on a clear liquid diet we will go ahead and schedule a upper GI with small-bowel follow-through with Gastrografin no need for surgical intervention this time we will follow patient closely try to determine if any changes we will also possibly place patient on Reglan. All questions were answered to patient's and 's satisfaction Exam Vital Signs (past 8 hours): - 10/24/24 11:50 10/24/24 13:00 10/24/24 14:10 Temperature 97.1 F L 97.8 F Pulse Rate 66 95 H Respiratory Rate 16 15 Blood Pressure 153/73 H 92/64 83/55 L Pulse Oximetry 100 Oxygen Flow Rate 0 10/24/24 14:20 10/24/24 14:33 10/24/24 16:45 Temperature 97.6 F Pulse Rate 68 Respiratory Rate 14 Blood Pressure 100/68 99/51 L 111/63 Pulse Oximetry Oxygen Flow Rate 10/24/24 17:06 Temperature 96.7 F L Pulse Rate 71 Respiratory Rate 14 Blood Pressure 158/80 H Pulse Oximetry Oxygen Flow Rate Oxygen Delivery Method Room Air Oxygen Flow Rate 0 Objective Labs 10/24/24 14:15 10/24/24 05:10 Labs: Laboratory Results - last 24 hr 10/23/24 10/24/24 10/24/24 21:22 05:10 07:39 WBC 3.8 L RBC 2.46 L Hgb 6.7 L* Hct 20.2 L* MCV 82.2 MCH 27.2 MCHC 33.1 RDW 19.7 H Plt Count 321 Sodium 136 L Potassium 3.7 Chloride 105 Carbon Dioxide 28 BUN 7 L Creatinine 0.64 L Estimated GFR > 60 BUN/Creatinine Ratio 10.9 Glucose 98 POC Whole Bld Glucose 128 H 109 H Calcium 7.7 L Total Bilirubin 0.4 AST 25 ALT 18 Alkaline Phosphatase 85 Total Protein 5.4 L Albumin 2.6 L Globulin 2.8 Albumin/Globulin Ratio 0.9 L Blood Type O Positive Antibody Screen Negative Crossmatch See Detail 10/24/24 10/24/24 10/24/24 11:54 14:15 14:16 WBC RBC Hgb 7.4 L Hct 22.7 L MCV MCH MCHC RDW Plt Count Sodium Potassium Chloride Carbon Dioxide BUN Creatinine Estimated GFR BUN/Creatinine Ratio Glucose POC Whole Bld Glucose 145 H 163 H Calcium Total Bilirubin AST ALT Alkaline Phosphatase Total Protein Albumin Globulin Albumin/Globulin Ratio Blood Type Antibody Screen Crossmatch 10/24/24 17:03 WBC RBC Hgb Hct MCV MCH MCHC RDW Plt Count Sodium Potassium Chloride Carbon Dioxide BUN Creatinine Estimated GFR BUN/Creatinine Ratio Glucose POC Whole Bld Glucose 117 H Calcium Total Bilirubin AST ALT Alkaline Phosphatase Total Protein Albumin Globulin Albumin/Globulin Ratio Blood Type Antibody Screen Crossmatch [facility] Medical History GERD (gastroesophageal reflux disease) HNP (herniated nucleus pulposus), lumbar History of bleeding ulcers Hypertriglyceridemia Non-insulin dependent type 2 diabetes mellitus HTN (hypertension) Nephrolithiasis Degenerative disc disease Surgical History History of vasectomy History of colonoscopy History of cholecystectomy History of gastric bypass History of cervical spinal surgery Status post lumbar surgery Family History Mother No known health problems Father No known health problems Social History household members: spouse and family alcohol intake: former Assessment & Plan Time-Based Coding :: [TOTAL MINUTES] spent with patient and on the chart (including review of chart, obtaining history, exam, reviewing outside data, placing orders, documenting exam and treatment plan, and counseling patient) on [DATE]. PROFEE Hydrate Control Tender Document charge(s): Yes
[2024-10-24] MEDS: METOCLOPRAMIDE 10 MG/2 ML INJ IV (21:23)
[2024-10-25] VITALS (16 sets, daily range): BP systolic 144–180; BP diastolic 65–84; PULSE 68–100; RESP 16–20; TEMP 36.2–37.2; O2SAT 99–100
[2024-10-25] MEDS: SODIUM CHLORIDE 0.9% 1,000 ML 100 ML IV (03:08)
[2024-10-25] MEDS: METOCLOPRAMIDE 10 MG/2 ML INJ IV ×2 (05:48→15:29)
[2024-10-25 06:50] LABS: Mean Corpuscular HGB Conc 32.8 % (30-36); Mean Corpuscular Hemoglobin 27.6 PG (26-34); Mean Corpuscular Volume 84.1 fL (80-100); Platelet Count 306 X10^3/uL (150-400)
[2024-10-25 06:52] LABS: Hematocrit 19.6 % (41-53); Hemoglobin 6.4 g/dL (13.5-17.5)
[2024-10-25 07:06] LABS: Alanine Aminotransferase 17 IU/L (<50); Albumin 2.3 g/dL (3.5-5.0); Albumin Globulin Ratio 0.9 (1.0-2.8); Alkaline Phosphatase 64 U/L (38-126); Blood Urea Nitrogen 11 mg/dL (9-20); Calcium 7.4 mg/dL (8.4-10.2); Carbon Dioxide 25 mmol/L (22-32); Chloride 106 mmol/L (98-107); Estimated Glomerular Filt Rate > 60 mL/min (>60); Globulin 2.5 g/dL (1.7-4.1); Glucose 118 mg/dL (70-99); Sodium 133 mmol/L (137-145); Total Protein 4.8 g/dL (6.3-8.2)
[2024-10-25 07:07] LABS: HEMOLYSIS 88 (0-50); Potassium 5.2 mmol/L (3.4-5.1)
[2024-10-25] MEDS: SUCRALFATE 1 GM TABLET PO ×3 (07:39→16:51)
[2024-10-25] MEDS: MAG HYDROX/ALUM/SIMETH 30 ML UDC PO ×3 (07:39→16:51)
[2024-10-25 07:51] LABS: Iron 40 ug/dL (49-181)
[2024-10-25 07:56] LABS: HEMOLYSIS 89 (0-50)
[2024-10-25 08:01] LABS: Percent Iron Saturation 17 % (20-50); Total Iron Binding Capacity 229 ug/dL (261-462); Transferrin 164 mg/dL (206-381)
[2024-10-25] MEDS: PANTOPRAZOLE 40 MG VIAL IV (08:01)
--- NOTE | 2024-10-25 08:28 | PC.NURSE ---
Informed Billtoddby of pt H/H 6.4/19.6. MD Robert entered orders for 1 unit PRBCs. Currently transfusing, pt tolerating well.
--- NOTE | 2024-10-25 08:52 | PM.PN.IH.1 ---
Subjective Subjective Date Patient Seen: 10/25/24 Time Patient Seen: 08:30 Interval history: Patient is a 69-year-old white male postop day 11. EGD for upper GI bleed with gastrojejunostomy channel ulcer postoperative day 8. Incisional herniorrhaphy. Patient had a recent admission with chest pain and also had an episode of pancreatitis which has since resolved. Now patient had an episode of syncope and the restroom yesterday was worked up with a CT scan showing a dilated loops of small bowel near the Grey-en-Y anastomosis which previous CT scan with oral contrast failed to show the dilated loops of bowel. Nursing just related that patient is having rectal bleeding now. WBC is 4.1 hemoglobin is 6.4 hematocrit is 19.6 patient is receiving packed RBCs currently platelets are 306,000. Sodium is 133 potassium 5.2 chloride 106 bicarb is 25 BUN of 11 creatinine 0.53 random blood sugar is 118 normal LFTs. Vitals: Temperature is 97.6? pulse 73 respirations 18 BP is 150/68 SaO2 is 100% patient earlier and had a small bowel movement now is having some rectal bleeding. Heart regular rate and rhythm without murmurs lungs are clear to auscultation poor inspiratory and expiratory effort poor chest wall motion noted abdomen is soft nondistended no masses or peritoneal signs incisional hernia repair site is clear no signs of infection or inflammation. Impression: New onset recurrent GI bleed history of previous upper GI bleed with postop day 11. EGD with channel ulcer Acute blood loss anemia hemoglobin 6.4 hematocrit is 19.6 Postop day 8. Incisional hernia repair Recent episode of chest pain has been worked up by hospitalist History of previous gastrojejunostomy for gastric bypass with previous anastomotic ulcer previous anastomosis perforation with abscess of the liver primary repair recent recurrent upper GI bleed with channel ulcer Plan: Patient is having recurrent GI bleeding we will NPO and we will try to schedule patient for EGD this date the patient is receiving packed RBCs again we will hold the upper GI with small-bowel follow-through. Patient continues to have bleeding may warrant surgery or possible referral for Interventional Radiology we will follow patient closely orders written. Exam Vital Signs (past 8 hours): - 10/25/24 03:00 10/25/24 08:16 10/25/24 08:34 Temperature 97.6 F 97.2 F L 97.8 F Pulse Rate 73 76 86 Respiratory Rate 18 20 20 Blood Pressure 150/68 H 158/76 H 155/65 H Pulse Oximetry 100 Oxygen Flow Rate 0 Oxygen Delivery Method Room Air Oxygen Flow Rate 0 Objective Labs 10/25/24 06:30 10/25/24 06:30 Labs: Laboratory Results - last 24 hr 10/24/24 10/24/24 10/24/24 05:10 11:54 14:15 WBC RBC Hgb 7.4 L Hct 22.7 L MCV MCH MCHC RDW Plt Count Sodium Potassium Chloride Carbon Dioxide BUN Creatinine Estimated GFR BUN/Creatinine Ratio Glucose POC Whole Bld Glucose 145 H Calcium Iron TIBC % Saturation Transferrin Total Bilirubin AST ALT Alkaline Phosphatase Total Protein Albumin Globulin Albumin/Globulin Ratio Blood Type O Positive Antibody Screen Negative Crossmatch See Detail 10/24/24 10/24/24 10/25/24 14:16 17:03 06:30 WBC 4.1 L RBC 2.32 L Hgb 6.4 L* Hct 19.6 L* MCV 84.1 MCH 27.6 MCHC 32.8 RDW 18.9 H Plt Count 306 Sodium 133 L Potassium 5.2 H D Chloride 106 Carbon Dioxide 25 BUN 11 Creatinine 0.53 L Estimated GFR > 60 BUN/Creatinine Ratio 20.8 Glucose 118 H POC Whole Bld Glucose 163 H 117 H Calcium 7.4 L Iron 40 L TIBC 229 L % Saturation 17 L Transferrin 164 L Total Bilirubin 0.7 AST 36 ALT 17 Alkaline Phosphatase 64 Total Protein 4.8 L Albumin 2.3 L Globulin 2.5 Albumin/Globulin Ratio 0.9 L Blood Type Antibody Screen Crossmatch [facility] Medical History GERD (gastroesophageal reflux disease) HNP (herniated nucleus pulposus), lumbar History of bleeding ulcers Hypertriglyceridemia Non-insulin dependent type 2 diabetes mellitus HTN (hypertension) Nephrolithiasis Degenerative disc disease Surgical History History of vasectomy History of colonoscopy History of cholecystectomy History of gastric bypass History of cervical spinal surgery Status post lumbar surgery Family History Mother No known health problems Father No known health problems Social History household members: spouse and family alcohol intake: former Assessment & Plan Time-Based Coding :: [TOTAL MINUTES] spent with patient and on the chart (including review of chart, obtaining history, exam, reviewing outside data, placing orders, documenting exam and treatment plan, and counseling patient) on [DATE]. PROFEE [employer] Document charge(s): Yes
[2024-10-25 09:01] LABS: Folate 8.7 ng/mL (2.76-20.0); Vitamin B12 595 pg/mL (239-931)
[2024-10-25 10:09] LABS: Reticulocyte Count, Percent 4.2 % (0.9-2.6)
--- NOTE | 2024-10-25 10:32 | PC.NURSE ---
Pt taken down for EGD at 1000, blood to continue to transfuse in OR.
[2024-10-25] MEDS: LACTATED RINGERS 1,000 ML 42 ML IV (10:44)
--- NOTE | 2024-10-25 11:40 | PM.OP.EGD ---
Operative Date/Time/Diagnoses Date of procedure: 10/25/24 Time of procedure: 11:30 Pre-op diagnosis: Recurrent upper GI bleed with acute blood loss anemia Post-op diagnosis: other (Gastrojejunal anastomotic ulcer nonbleeding) Procedure & Clinicians Study performed: Patient is a 69-year-old white male who had been seen in the hospital previously for upper GI bleed was treated with medical management had no further bleeding developed bright red rectal bleeding with slight hypotension and drop in hemoglobin hematocrit with acute blood loss anemia. Patient was given fluids packed RBCs discussed the need for EGD to re-evaluate procedure risks and complications were fully explained including risk for cardiopulmonary depression infection bleeding bowel injury patient understood consented. Patient was taken to OR suite was administered a general inhalation endotracheal anesthetic after blood had been given. Oral bite block was placed to avoid any injury to oropharyngeal soft tissue. Time-out was performed procedure patient and surgeon all in the room were agreement. Video EGD scope was then lubricated and easily advanced the oropharyngeal cavity endotracheal tube is noted between the vocal cords oropharyngeal cavity suctioned clear scope was advanced to the esophagus normal anatomical landmarks GE junction was noted to be clear no signs of gastric or esophageal varices. The gastric pouch was quite small this was insufflated the anastomosis was noted and ulcers were noted but no obvious source of bleeding membranes were noted covering these no vessels were noted scope was advanced through this into the jejunum and advanced to the limits of the scope unable to reach the Grey-en-Y anastomosis but no dilated loops of bowel were noted no signs of bowel obstruction. The scope was then slowly withdrawn visualizing all areas at the anastomosis again ulcers were noted but no signs of bleeding it was elected not to biopsy these no need for injection or jaylene unable to retroflex the scope all insufflated air was aspirated the scope moved back to his normal GE junction through the esophagus again normal anatomical landmarks oropharyngeal cavity was suctioned clear scope was removed and patient tolerated procedure well without incident or complication patient was returned to recovery room in satisfactory condition. Postoperatively we will admit back to med surge continue with maximal antiulcer therapy transfuse packed RBCs we will discuss with hospitalist about possible transfer to tertiary institution may need to have Interventional Radiology for control of possible bleeding. But none noted at this time all questions were answered to patient and 's satisfaction. Same procedure(s) as scheduled: Yes Indications: GI bleeding acute blood loss anemia Surgeon: Richie Billsby Anesthesia Type: General Procedure Notes Findings: gastric ulcer Specimen(s): none sent Complications: none Post-procedure Recommendations: Continue medication(s) Disposition: PACU
--- NOTE | 2024-10-25 12:05 | SUR.OPER ---
Peripheral IV on right arm found to be infiltrated and not working during anesthesia intubation. New PIV 20 guage inserted on left hand, flushes well, good blood return and dressing clean dry and intact.
--- NOTE | 2024-10-25 13:02 | PC.NURSE ---
VS at end of first 15 min of transfusion: BP 163/79, HR 71, RR 16, T 97.2 Increased rate to 150mL/hr. Pt tolerating well.
[2024-10-25] MEDS: ONDANSETRON 4 MG/2 ML INJ IV ×2 (13:12→17:30)
--- NOTE | 2024-10-25 13:50 | DI.RAD.S_ITS ---
PROCEDURE: XR CHEST FOR PICC 1V INDICATIONS: verify PICC placement COMPARISON: [facility], CR, XR CHEST 1V, 10/02/2024, 9:36. FINDINGS / IMPRESSION: PICC was placed by the intravenous therapy team from the left side. Frontal chest film demonstrates the tip of PICC is not clearly delineated but appears to terminate at the level of the mid superior vena cava could be advanced up to 6 cm to the level of the distal superior vena cava/right atrial junction. No pneumothorax, no pleural effusion, no focal consolidation. Cardiopericardial silhouette and pulmonary vasculature within normal limits. Dictated by: Brent Lagunas M.D. on 10/25/2024 at 14:17 Approved by: Brent Lagunas M.D. on 10/25/2024 at 14:22
--- NOTE | 2024-10-25 13:51 | DI.CT.S_ITS ---
PROCEDURE: CT ANGIO ABD/PEL GI BLEED INDICATIONS: acute gi bleed TECHNIQUE: After the administration of intravenous contrast, 2.5 mm sections acquired from the diaphragm to the iliac crests. 10 mm maximum intensity projection (MIP) coronal and sagittal reformats were then performed. For radiation dose reduction, the following was used: automated exposure control. COMPARISON: [facility], CT, CT ANGIO ABD/PEL GI BLEED, 10/27/2023, 5:48. FINDINGS: Image quality: Diagnostic. Abdominal aorta: No aortic aneurysm or evidence of acute aortic syndrome. Mesenteric arteries: Patent without hemodynamically significant stenosis. Renal arteries: Patent without hemodynamically significant stenosis. Lower chest: Unremarkable. ABDOMEN: Liver: No solid mass. Gallbladder: Biliary ducts: No biliary dilation. Pancreas: No ductal dilation. Spleen: Size is within normal limits. Adrenal Glands: No adrenal nodules. Kidneys and Ureters: No hydronephrosis. No solid mass. No complex renal cystic lesion which requires follow up. Large nonobstructing right renal stone measuring 1.3 cm. Stomach and Bowel: Remote gastric bypass surgery. There is significant inflammatory change at the level of the anastomosis with 1 of the jejunal loops with a significantly abnormal appearance. Although this can simply represent gastritis and associated jejunitis involving 1 of the loops, neoplasm is not excluded. Colonic diverticulosis. No diverticulitis. No colonic wall thickening. Peritoneum: No abnormal intraperitoneal fluid. No free air. Ventral Wall: No hernia. Abdominal Nodes: No retroperitoneal or mesenteric adenopathy by size criteria. Vessels: Aorta, as above. Normal IVC. PELVIS: Pelvic Organs: Unremarkable. Bladder: Unremarkable. Pelvic Nodes: No enlarged lymph nodes. Miscellaneous: No inguinal hernias are seen. Bones: Remote posterior lumbar laminectomy and posterior lateral filemon and pedicle screw fixation. There has been development of loss of the posterior cortical margin of the L4 vertebral body, previously intact. This may simply represent progression of osteopenia. However, cannot exclude a subtle lytic destructive lesion. Reference sagittal image 75 of series 13. Additionally, the posterior aspect of the S1 vertebral body is no longer present as well. This is suspicious for a malignant lesion. IMPRESSION: 1. No acute hemorrhage occurred during this examination. 2. Remote gastric bypass. 3. Abnormal appearance of the wall of the stomach and 1 of the loops of jejunum subjacent to the anastomosis. Findings may simply represent gastritis and jejunitis. However, cannot exclude malignancy. Recommend direct endoscopic visualization when clinically appropriate. 4. Loss of posterior margin of the L4 vertebral body, of uncertain etiology. Cannot exclude a malignant lesion. There is a similar loss of the posterior margin of the S1 vertebral body which it is more suspicious for malignant lesion. Recommend lumbar MRI with without contrast. Comment: Recommend upper endoscopy when clinically appropriate. Recommend lumbar spine MRI with and without contrast to exclude an aggressive process. Dictated by: Christiano Tidwell M.D. on 10/25/2024 at 14:56 Approved by: Christinao Tidwell M.D. on 10/25/2024 at 15:27
--- NOTE | 2024-10-25 14:17 | PM.DS.1 ---
History of Present Illness History of Present Illness Date Patient Seen: 10/25/24 Chief complaint: Stomach pain x 7 days bright red blood per rectum Narrative: Chief complaint: Epigastric pain in the setting of remote postoperative gastric bypass surgery with marginal ulcer, suspected recurrent pancreatitis, and recent ventral hernia repair History of present illness: 69-year-old male with abdominal pain for the last week. He was recently discharged after having EGD revealing a marginal ulcer near his gastrojejunal anastomosis from his prior gastric bypass. Since discharge, he was had persistent pain in the abdomen. He also underwent repair of a recurrent non incarcerated incisional hernia on October 17, during his previous admission. General surgeon asked for a 2nd CT scan with oral contrast which was negative for extravasation. 10/22: Persistent abdominal pain. Imaging revealed evidence of activity at the ulcer site but no extravasation. Also complaint of chest pain with a nonacute 12 lead and a negative troponin. No cardiac history. 10/23: He was pain appears to be persistent. It was a report of previous opiate use at home. In reviewing all of the imaging the 1 thing that does stand out as his degree of inflammation had his ulcer site. His lipase has improved. I did speak with surgery regarding him, [id number] today. We will advance his diet. 10/24: Still having some epigastric pain had a normal brown bowel movement this morning hemoglobin dropped to 6.7 this morning Patient had syncopal episode while sitting on the toilet trying to have bowel movement. Following this patient is having some nausea abdominal discomfort some strange reticulated ecchymotic pattern was noted on the right flank. Repeat CT scan was performed compared to 3 days ago patient given an additional unit of PRBCs and 1.5 cc of saline. 10/25: Patient has started passing copious amounts of bright red blood per rectum brought to the endoscopy suite by Dr. Rodrigues patient received 2 more units of packed red blood cells making the total in the past 24 hours 6 units of packed red blood cells Except from endoscopy report: scope was advanced to the esophagus normal anatomical landmarks GE junction was noted to be clear no signs of gastric or esophageal varices. The gastric pouch was quite small this was insufflated the anastomosis was noted and ulcers were noted but no obvious source of bleeding membranes were noted covering these no vessels were noted scope was advanced through this into the jejunum and advanced to the limits of the scope unable to reach the Grey-en-Y anastomosis but no dilated loops of bowel were noted no signs of bowel obstruction. The scope was then slowly withdrawn visualizing all areas at the anastomosis again ulcers were noted but no signs of bleeding it was elected not to biopsy these no need for injection or jaylene unable to retroflex the scope all insufflated air was aspirated the scope moved back to his normal GE junction through the esophagus again normal anatomical landmarks oropharyngeal cavity was suctioned clear scope was removed and patient tolerated procedure well without incident or complication patient was returned to recovery room in satisfactory condition. Postoperatively we will admit back to [facility] surge continue with maximal antiulcer therapy transfuse packed RBCs we will discuss with hospitalist about possible transfer to tertiary institution may need to have Interventional Radiology for control of possible bleeding. Transfer center at [facility] was contacted the accepted the patient in transfer but requested that we do a CT angiography to hopefully locate the source of acute bleeding here and there plan is to undergo interventional radiology embolization of the bleeding vessel Review of systems: No chest pain palpitations No fever or chills No urinary symptoms No paresthesia paresis Physical exam: Elderly gentleman appears frightened and pale HEENT dry oropharynx Heart rate and rhythm regular lungs clear Abdomen as well healed scar from incision Minimal epigastric tenderness Some idania surgical slight soreness Assessment plan: Gastrointestinal bleed with no evidence of bleeding at anastomotic ulcer sites which are present. Patient is being transferred to [facility] after CT angiogram be hopefully to locate source of bleeding and to hopefully embolized DVT prophylaxis: Not indicated Code status: Full code blue 35 minutes were involved in management of this patient including [id number] evaluation physical examination of the patient discussion with surgery and nursing team review of objective laboratory data and previous records Discharge Providers Provider Date of admission: 10/21/24 17:00 Discharge Date: 10/25/24 Primary care physician: Shin José PA-C Discharge provider: Alex Robert MD Exam Vital Signs (past 8 hours): - 10/25/24 07:00 10/25/24 08:16 10/25/24 08:34 Temperature 97.2 F L 97.2 F L 97.8 F Pulse Rate 68 76 86 Respiratory Rate 17 20 20 Blood Pressure 158/76 H 158/76 H 155/65 H Pulse Oximetry 100 Oxygen Delivery Method Oxygen Flow Rate 0 10/25/24 10:25 10/25/24 11:35 10/25/24 11:40 Temperature 98.5 F 99.0 F Pulse Rate 78 100 H 93 H Respiratory Rate 16 18 20 Blood Pressure 167/84 H 169/80 H 160/79 H Pulse Oximetry 100 100 100 Oxygen Delivery Method Room Air Room Air Room Air Oxygen Flow Rate 10/25/24 11:45 10/25/24 11:50 10/25/24 11:55 Temperature 98.1 F Pulse Rate 83 78 80 Respiratory Rate 16 18 16 Blood Pressure 144/69 H 165/74 H 156/78 H Pulse Oximetry 99 99 100 Oxygen Delivery Method Room Air Room Air Room Air Oxygen Flow Rate 10/25/24 12:00 10/25/24 12:20 10/25/24 12:34 Temperature 97.2 F L 97.2 F L Pulse Rate 80 77 75 Respiratory Rate 17 18 16 Blood Pressure 148/83 H 163/79 H 163/79 H Pulse Oximetry 99 100 Oxygen Delivery Method Room Air Oxygen Flow Rate 0 10/25/24 12:55 10/25/24 13:08 Temperature 97.4 F L 97.4 F L Pulse Rate 71 71 Respiratory Rate 16 16 Blood Pressure 164/80 H 164/80 H Pulse Oximetry Oxygen Delivery Method Oxygen Flow Rate Oxygen Delivery Method Room Air Oxygen Flow Rate 0 Objective Labs 10/25/24 06:30 10/25/24 06:30 Labs: Laboratory Results - last 24 hr 10/24/24 10/24/24 10/24/24 05:10 14:15 14:16 WBC RBC Hgb 7.4 L Hct 22.7 L MCV MCH MCHC RDW Plt Count Percent Retic Sodium Potassium Chloride Carbon Dioxide BUN Creatinine Estimated GFR BUN/Creatinine Ratio Glucose POC Whole Bld Glucose 163 H Calcium Iron TIBC % Saturation Transferrin Total Bilirubin AST ALT Alkaline Phosphatase Total Protein Albumin Globulin Albumin/Globulin Ratio Vitamin B12 Folate Blood Type O Positive Antibody Screen Negative Crossmatch See Detail 10/24/24 10/25/24 10/25/24 17:03 06:30 09:45 WBC 4.1 L RBC 2.32 L Hgb 6.4 L* Hct 19.6 L* MCV 84.1 MCH 27.6 MCHC 32.8 RDW 18.9 H Plt Count 306 Percent Retic 4.2 H Sodium 133 L Potassium 5.2 H D Chloride 106 Carbon Dioxide 25 BUN 11 Creatinine 0.53 L Estimated GFR > 60 BUN/Creatinine Ratio 20.8 Glucose 118 H POC Whole Bld Glucose 117 H Calcium 7.4 L Iron 40 L TIBC 229 L % Saturation 17 L Transferrin 164 L Total Bilirubin 0.7 AST 36 ALT 17 Alkaline Phosphatase 64 Total Protein 4.8 L Albumin 2.3 L Globulin 2.5 Albumin/Globulin Ratio 0.9 L Vitamin B12 595 Folate 8.7 Blood Type Antibody Screen Crossmatch 10/25/24 10:28 WBC RBC Hgb Hct MCV MCH MCHC RDW Plt Count Percent Retic Sodium Potassium Chloride Carbon Dioxide BUN Creatinine Estimated GFR BUN/Creatinine Ratio Glucose POC Whole Bld Glucose 198 H Calcium Iron TIBC % Saturation Transferrin Total Bilirubin AST ALT Alkaline Phosphatase Total Protein Albumin Globulin Albumin/Globulin Ratio Vitamin B12 Folate Blood Type Antibody Screen Crossmatch [facility] Medical History GERD (gastroesophageal reflux disease) HNP (herniated nucleus pulposus), lumbar History of bleeding ulcers Hypertriglyceridemia Non-insulin dependent type 2 diabetes mellitus HTN (hypertension) Nephrolithiasis Degenerative disc disease Surgical History History of vasectomy History of colonoscopy History of cholecystectomy History of gastric bypass History of cervical spinal surgery Status post lumbar surgery Family History Mother No known health problems Father No known health problems Social History household members: spouse and family alcohol intake: former Discharge Plan Discharge Plan Patient Disposition: [facility] Other facility: [facility] Discharge Data Primary Care Provider: Shin José
[2024-10-25] MEDS: SODIUM CHLORIDE 0.9% 1,000 ML 125 ML IV (15:28)
[2024-10-25] MEDS: OXYCODONE IR 5 MG TABLET PO (18:16)
[2024-10-25 19:18] LABS: Hematocrit 27.4 % (41-53); Hemoglobin 9.2 g/dL (13.5-17.5)
--- NOTE | 2024-10-25 20:02 | PC.NURSE ---
discharge PT DC'd via medic transport. VSS. Pt alert, oriented, and conversing. No s/s of distress. All belongings taken with him. Accompanied by spouse.
== END 2024-10-25 20:04 | disposition short-term general hospital (02) | DRG 438 ==
LOC: ED 09:45 → AC 18:25
PROVIDERS: Internal Medicine; Surgery; Admitting Provider Hospitalist; Emergency Provider Family Medicine; PCP Student in an Organized Health Care Education/Training Program; Referring Provider Family Medicine; Visit Provider Hospitalist
PROC: 0DJ08ZZ Inspection of Upper Intestinal Tract, Via Natural or Artificial Opening Endoscopic (ICD-10-PCS; principal; 2024-10-25 10:30)
DX: K85.90 Acute pancreatitis without necrosis or infection, unspecified (principal); K25.4 Chronic or unspecified gastric ulcer with hemorrhage; D62 Acute posthemorrhagic anemia; E11.9 Type 2 diabetes mellitus without complications; I10 Essential (primary) hypertension; F32.A Depression, unspecified; F10.11 Alcohol abuse, in remission; K21.9 Gastro-esophageal reflux disease without esophagitis; E78.5 Hyperlipidemia, unspecified; R07.9 Chest pain, unspecified; G89.18 Other acute postprocedural pain; R10.9 Unspecified abdominal pain; I49.3 Ventricular premature depolarization; I45.10 Unspecified right bundle-branch block; R55 Syncope and collapse; Z87.891 Personal history of nicotine dependence; Z98.890 Other specified postprocedural states; Z98.84 Bariatric surgery status; Z91.148 Patient's other noncompliance with medication regimen for other reason; Z79.84 Long term (current) use of oral hypoglycemic drugs; Z90.49 Acquired absence of other specified parts of digestive tract
CPT/HCPCS: 36415; 36430; 36569; 74174; 74177; 74250; 80053; 81003; 81015; 82607; 82746; 82962; 83540; 83550; 83605; 83690; 83735; 84484; 85014; 85018; 85025; 85027; 85045; 86850; 86900; 86901; 92950; 93005; 93307; 96361; 96374; 96375; 96376; 99284; P9016; J0330; J1100; J1171; J1885; J2405; J2470; J2704; J2765; J3010; J3475; Q9967